=== PATIENT | male | born 1945 | race Caucasian/White ===

== ENCOUNTER 2019-12-05 14:53 | Outpatient (RCR) | payer MEDICARE, MEDICAID, OTHER, SELFPAY ==
[2019-12-05 15:48] LABS: Vitamin B12 450 pg/mL (232-1245)
== END 2019-12-13 23:59 | disposition home or self-care (01) ==
LOC: LAB 14:53
PROVIDERS: Family Provider Internal Medicine; PCP Internal Medicine; Visit Provider Internal Medicine
DX: E56.9 Vitamin deficiency, unspecified (principal); G47.00 Insomnia, unspecified
CPT/HCPCS: 82607

== ENCOUNTER 2019-12-10 01:22 | Observation (INO) | payer OTHER, MEDICARE, MEDICAID, SELFPAY ==
[2019-12-10] VITALS (20 sets, daily range): BP systolic 97–179; BP diastolic 56–130; PULSE 65–109; RESP 13–22; TEMP 36.7–36.9; O2SAT 89–97; BMI 31.0
--- NOTE | 2019-12-10 01:27 | ED_ITS ---
Entered by Candace Foley, acting as scribe for Haylee Franklin HPI - Chest Pain General: Chief Complaint: Chest Pain Stated Complaint: Hypertension Time Seen by Provider: 12/10/19 01:27 History of Present Illness: HPI narrative: 74 yo m came to the er by [facility] ems for chest pain and palp. Onset was 2 days ago. Pt states that the pain comes and goes. Pt states that when he gets this pressure in his chest he starts to get short of breath. Pt said that he has had a pressure tight pain for 3 days. MD complaint: chest pain, chest discomfort and other (shortness of breath) Onset (ago): day(s) (3 days ago) Timing of current episode: episodic Prior episodes: Yes Onset: during rest Pain location: substernal Severity: moderate Quality: other (pressure) Associated symptoms: Reports palpitations; Deny abdominal pain, diaphoresis, dyspnea, fever(s), nausea, syncope or vomiting Treatment prior to arrival: nitroglycerin and other (nitro paste) Review of Systems General: Reports: other (negative unless marked) Const: Denies: fever, chills, body aches, fatigue, malaise or diaphoresis Eyes: Denies: change in vision or blurry vision ENMT: Denies: throat pain, painful swallowing, hoarseness, ear pain, ear discharge, Change in hearing or nasal discharge Card: Reports: chest pain and palpitations; Denies: irregular heart rhythm, syncope, pre-syncope, shortness of breath on exertion or shortness of breath when lying down Resp: Denies: shortness of breath, productive cough, non-productive cough, wh eezing, coughing up blood or chest congestion GI: Denies: abdominal pain, nausea, vomiting, vomiting blood, coffee grounds in vomit, diarrhea, constipation, cramping, blood in stool or black tarry stool : Denies: flank pain, difficulty urinating, painful urination, urinary frequency, urinary urgency, decreased urine ouput, urinary incontinence or blood in urine Musc: Denies: neck pain, back pain, extremity pain, extremity swelling, joint pain, joint swelling, joint warmth or joint stiffness Skin/Breast: Denies: rash, skin tenderness or yellow skin Neuro: Denies: headache, numbness in extremities, weakness in extremities, changes in sensation, lack of coordination, difficulty walking, dizziness, vertigo or confusion Endo: Denies: excessive thirst, tired all the time, cold intolerance, excessive sweating, flushing or hot flashes Santana/Lymph: Denies: easy bruising, easy bleeding, petechiae or enlarged lymph nodes All/Imm: Denies: hives, throat swelling, tongue swelling, facial swelling or acute wheezing PFSH ED PFSH: Statuses (acute, chronic, etc) shown below reflect problem list status as previously entered and may not be historically accurate Medical History Chronic kidney disease, stage II (mild) (Acute) COPD (chronic obstructive pulmonary disease) (Acute) Coronary artery disease (Acute) CVA (cerebral vascular accident) (Acute) GI bleed (Acute) Hypertension (Acute) Hypothyroidism (Acute) Lower back pain (Acute) Pulmonary embolism (Acute) Spinal cord stimulator status (Acute) Systolic congestive heart failure (Acute) Surgical History H/O cardiac catheterization (Acute) H/O shoulder surgery (Acute) History of ankle surgery (Acute) History of right-sided carotid endarterectomy (Acute) Hx of cholecystectomy (Acute) Social History Smoking and tobacco status: former smoker Physical Exam Const: COMMON NORMALS: no apparent distress, oriented x3, no limitations, healthy appearing and well nourished EXAM LIMITATIONS: no altered mental status GENERAL APPEARANCE: cooperative, well kempt and well developed ORIENTATION/CONSCIOUSNESS: Yes awake HENMT: COMMON NORMALS: normocephalic, head/scalp atraumatic, hearing grossly normal bilaterally, external ears normal, EAC's normal, external nose normal and moist oral mucous membranes HEAD & SCALP: normal to inspection, normocephalic and atraumatic FACE & SINUS: normal facial exam and face symmetric NOSE: external nose normal and nares normal EXTERNAL EAR: Yes external ears normal EXTERNAL AUDITORY CANAL: EAC's normal MOUTH: oral and palatal mucosa normal and tongue normal Eye: COMMON NORMALS: PERRL, EOMs intact bilaterally, conjunctivae normal and no scleral icterus GENERAL EYE: normal appearance of both eyes and normal light reflex CONJUNCTIVA: Yes conjunctivae normal SCLERA: sclerae normal CORNEA: Yes corneas normal PUPIL: Yes PERRL DIRECT OPHTHALMOSCOPY: Yes normal light reflex Neck/C-Spine: COMMON NORMALS: full ROM, no lymphadenopathy, supple, no me ningeal signs and no JVD GENERAL: Yes normal visual inspection and Yes trachea midline CERVICAL SPINE: Yes cervical ROM normal Chest: COMMONS NORMALS: inspection of chest normal and palpation of chest normal Resp: COMMON NORMALS: normal respiratory effort, no retractions, no use of accessory muscles and clear to auscultation bilaterally EFFORT & INSPECTION: Yes able to speak in complete sentences AUSCULTATION: clear to auscultation bilaterally Cardio: COMMON NORMALS: no JVD, regular rate, regular rhythm, S1 normal heart sound, S2 normal heart sound, no gallops, no clicks, no murmurs and no rub JUGULAR VENOUS DISTENTION: no JVD RATE: regular rate RHYTHM: regular rhythm HEART SOUNDS: S1 normal and S2 normal GI: COMMON NORMALS: soft to palpation, non-tender, no hepatosplenomegaly and no masses INSPECTION: Yes normal to inspection PALPATION: Yes soft and Yes no hepatosplenomegaly : COMMON NORMALS: Yes no CVA tenderness BLADDER/KIDNEY EXAM: Yes no CVA tenderness Back/Pelvis: COMMON NORMALS: no CVA tenderness, thoracic and lumbar spine normal to inspection, no thoracic nor lumbar tenderness and thoraco-lumbar ROM normal Extremity: COMMON NORMALS: normal to inspection, full ROM, normal capillary refill, no joint enlargement, no clubbing, cyanosis or edema and no calf tenderness Neuro: COMMON NORMALS: oriented x3, CN's II-XII intact bilaterally, moves all extremities, no focal motor deficits and no sensory deficits noted MENINGEAL SIGNS: Yes no meningeal signs Psych: COMMON NORMALS: mental status grossly normal, thought process normal, cooperative, affect normal, speech normal and activity/motor behavior normal APPEARANCE: Yes well kempt SPEECH: Yes normal speech THOUGHT PROCESS: normal thought process Skin: COMMON NORMALS: no rashes or lesions noted, skin turgor normal, no jaundice, no petechiae and no mottling GENERAL SKIN EXAM: no rashes or lesions noted and turgor normal Course Vital Signs: Vital signs: Vital Signs Temperature 98.4 F 12/10/19 01:23 Pulse Rate 69 12/10/19 04:00 Respiratory Rate 15 12/10/19 04:00 Blood Pressure 143/90 12/10/19 04:00 Pulse Oximetry 93 12/10/19 04:00 MDM - Chest Pain MDM Narrative: Medical decision making narrative: Mr. Gillette comes in with chest pain concerning for acute coronary syndrome. His troponin is going up but his chest pain is resolved and his EKG does not reveal any type of ST elevation. The case is reviewed with Dr. Harris he agrees to admit the patient for further cardiac evaluation. Lab Data: Attestation: I reviewed the patient's lab results. Labs: Lab Results 12/10/19 12/10/19 12/10/19 Range/Units 01:36 01:38 01:38 WBC 6.8 (4.0-10.0) 10^3/ uL RBC 5.21 (4.1-5.3) 10^6/u L Hgb 13.1 (11.7-16.6) g/dL Hct 41.2 L (42.0-52.0) % MCV 79.1 L (80-94) fL MCH 25.1 L (28.0-34.0) pg MCHC 31.8 (30.0-36.0) g/dL RDW 14.3 (12.1-15.1) % Plt Count 318 (130-400) 10^3/c mm MPV 9.9 (7.4-10.4) fL Neut % (Auto) 60.0 % Lymph % (Auto) 28.7 % [place] % (Auto) 8.0 % Eos % (Auto) 2.4 % Baso % (Auto) 0.6 % Neut # (Auto) 4.1 (1.8-7.7) 10^3/u L Lymph # (Auto) 1.9 (0.8-4.8) 10^3/u L [place] # (Auto) 0.5 (0.2-0.9) 10^3/u L Eos # (Auto) 0.2 (0.0-0.8) 10^3/u L Baso # (Auto) 0.0 (0.0-0.1) 10^3/u L Nucleated RBC % (a uto) 0 % Nucleated RBCs # 0.0 /100WBC PT 15.00 H (10.5-13.3) SECO NDS INR 1.15 (0.8-1.2) D-Dimer 0.41 (0-0.59) ug/mIFE U Sodium (136-145) mmol/L Potassium (3.5-5.1) mmol/L Chloride (98-107) mmol/L Carbon Dioxide (22-29) mmol/L Anion Gap (5-19) BUN (8-23) mg/dL Creatinine (0.7-1.2) mg/dL Glucose (74-106) mg/dL Calcium (8.5-10.5) mg/dL Magnesium (1.7-2.3) mg/dL Total Bilirubin (0.15-1.2) mg/dL AST (0-40) U/L ALT (0-41) U/L Alkaline Phosphata se (40-130) IU/L Troponin T Baselin e (0-15) ng/mL Troponin T 120 Min triny (0-15) ng/mL NT-Pro-B Natriuret Pep (0-125) pg/mL Total Protein (6.6-8.7) g/dL Albumin (3.5-5.2) g/dL Globulin (1.3-4.6) g/dL Lipase (13-60) U/L 12/10/19 12/10/19 12/10/19 Range/Units 01:38 01:38 03:38 WBC (4.0-10.0) 10^3/ uL RBC (4.1-5.3) 10^6/u L Hgb (11.7-16.6) g/dL Hct (42.0-52.0) % MCV (80-94) fL MCH (28.0-34.0) pg MCHC (30.0-36.0) g/dL RDW (12.1-15.1) % Plt Count (130-400) 10^3/c mm MPV (7.4-10.4) fL Neut % (Auto) % Lymph % (Auto) % [place] % (Auto) % Eos % (Auto) % Baso % (Auto) % Neut # (Auto) (1.8-7.7) 10^3/u L Lymph # (Auto) (0.8-4.8) 10^3/u L [place] # (Auto) (0.2-0.9) 10^3/u L Eos # (Auto) (0.0-0.8) 10^3/u L Baso # (Auto) (0.0-0.1) 10^3/u L Nucleated RBC % (a uto) % Nucleated RBCs # /100WBC PT (10.5-13.3) SECO NDS INR (0.8-1.2) D-Dimer (0-0.59) ug/mIFE U Sodium 133 L (136-145) mmol/L Potassium 4.3 (3.5-5.1) mmol/L Chloride 97 L (98-107) mmol/L Carbon Dioxide 22 (22-29) mmol/L Anion Gap 18.3 (5-19) BUN 16 (8-23) mg/dL Creatinine 1.1 (0.7-1.2) mg/dL Glucose 222 H (74-106) mg/dL Calcium 9.4 (8.5-10.5) mg/dL Magnesium 1.9 (1.7-2.3) mg/dL Total Bilirubin 0.7 (0.15-1.2) mg/dL AST 36 (0-40) U/L ALT 49 H (0-41) U/L Alkaline Phosphata se 91 (40-130) IU/L Troponin T Baselin e 75 H (0-15) ng/mL Troponin T 120 Min triny 84.51 H (0-15) ng/mL NT-Pro-B Natriuret Pep 625 H (0-125) pg/mL Total Protein 7.9 (6.6-8.7) g/dL Albumin 4.1 (3.5-5.2) g/dL Globulin 3.8 (1.3-4.6) g/dL Lipase 26 (13-60) U/L Imaging Data^: CXR: My impression: No acute cardiopulmonary findings EKG Data^: EKG 1: Attestation: I personally reviewed and interpreted this EKG as follows: EKG interpretation date: 12/10/19 EKG interpretation time: 01:42 Interpretation: Normal sinus rhythm at 94 beats a minute, normal MA interval, normal QRS, normal axis, LVH, T waves inverted 1, aVL and V6.. EKG 2: EKG interpretation date: 12/10/19 EKG interpretation time: 03:25 Interpretation: Normal sinus rhythm at 70 beats a minute, nonspecific ST-T wave changes, normal MA interval, normal QRS, normal QTC, T waves inverted 1, aVL and V6 similar to previous Discharge Plan Discharge Patient Disposition: Placed in Observation Clinical Impression: Chest pain Condition: Stable Referrals: Jorge Beasley [Primary Care Provider] - Coding Level of Care Code ED Anchorman for Chg Fwd The documentation recorded by the Og dominique Stephanie Lyn, accurately reflects the service I personally performed and the decisions made by Rigoberto delarosa Eli N Dec 10, 2019 01:22
--- NOTE | 2019-12-10 01:32 | XR_ITS ---
WS: [id number] Portable AP upright chest, 12/10/2019 Clinical Data: cough Comparison: Portable chest, 10/29/2018. Findings: No nodules, masses or effusions are seen. The heart is normal. The pulmonary vascularity is not increased. No pneumonia or pneumothorax is seen. The epidural simulator wires are seen overlying the thoracic epidural space. The aortic arch and descending aorta show tortuosity. There are clips i n the right supraclavicular fossa from surgery XR/XR chest 1V portable [id number] Impression: Atherosclerosis.
--- NOTE | 2019-12-10 01:32 | ECG_ITS ---
Measurements Intervals [place] Rate: 94 P: 33 FL: 168 QRS: 11 QRSD: 122 T: 82 QT: 361 QTc: 454 SINUS RHYTHM INFERIOR MYOCARDIAL INFARCTION , PROBABLY OLD [40+ ms Q WAVE AND/OR ST/T AB ABNORMALITY IN II/aVF] Compared to ECG 10/29/2018 19:56:11 Myocardial infarct finding now present Electronically Signed On 12-10-2019 16:18:06 [employer]OX [employer] by Valente Malin M.D. [id number] f
[2019-12-10 01:46] LABS: Basophils % 0.6 %; Eosinophils # 0.2 10^3/uL (0.0-0.8); Eosinophils % 2.4 %; Hematocrit 41.2 % (42.0-52.0); Hemoglobin 13.1 g/dL (11.7-16.6); Lymphocytes # 1.9 10^3/uL (0.8-4.8); Lymphocytes % 28.7 %; Mean Corpuscular HGB Conc 31.8 g/dL (30.0-36.0); Mean Corpuscular Hemoglobin 25.1 pg (28.0-34.0); Mean Corpuscular Volume 79.1 fL (80-94); Mean Platelet Volume 9.9 fL (7.4-10.4); Monocytes # 0.5 10^3/uL (0.2-0.9); Neutrophils # 4.1 10^3/uL (1.8-7.7); Nucleated Red Blood Cells % 0 %; Platelet Count 318 10^3/cmm (130-400); Red Blood Count 5.21 10^6/uL (4.1-5.3); Red Cell Distribution Width 14.3 % (12.1-15.1); White Blood Count 6.8 10^3/uL (4.0-10.0)
[2019-12-10 01:54] LABS: INR 1.15 (0.8-1.2)
[2019-12-10 02:06] LABS: Troponin(5th) Baseline 75 ng/mL (0-15)
[2019-12-10] MEDS: morphine 4 mg/mL SDV 1 mL IVP ×2 (02:13→12:21)
[2019-12-10 02:15] LABS: Alanine Aminotransferase 49 U/L (0-41); Albumin Level 4.1 g/dL (3.5-5.2); Alkaline Phosphatase 91 IU/L (40-130); Anion Gap 18.3 (5-19); Aspartate Amino Transferase 36 U/L (0-40); Blood Urea Nitrogen 16 mg/dL (8-23); Calcium 9.4 mg/dL (8.5-10.5); Carbon Dioxide 22 mmol/L (22-29); Chloride 97 mmol/L (98-107); Creatinine Clr Calc Pharmacy 67.1013; Globulin 3.8 g/dL (1.3-4.6); Glucose 222 mg/dL (74-106); Lipase 26 U/L (13-60); Magnesium 1.9 mg/dL (1.7-2.3); NT Pro B Type Natriuretic Pept 625 pg/mL (0-125); Potassium 4.3 mmol/L (3.5-5.1); Sodium 133 mmol/L (136-145); Total Bilirubin 0.7 mg/dL (0.15-1.2); Total Protein 7.9 g/dL (6.6-8.7)
--- NOTE | 2019-12-10 03:32 | ECG_ITS ---
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 [id number] f
[2019-12-10 03:42] LABS: D Dimer 0.41 ug/mIFEU (0-0.59)
[2019-12-10 04:03] LABS: Troponin 5 2HR 84.51 ng/mL (0-15); Troponin 5 2HR Delta 9.51 ABS# (0-10)
--- NOTE | 2019-12-10 04:52 | P.HP_ITS ---
Providers/Chief Complaint Primary Care Provider: Jorge Beasley Chief Complaint: Hypertension History of Present Illness Agus Gillette is a 74 year old male who carries diagnosis of congestive heart failure 33%, 100% occlusion of RCA(being managed medically), COPD uses 3 L of oxygen at night, no AICD or pacemaker came in with chief complaint of chest discomfort. Patient is stating that his blood pressure was very high at the retirement, systolic was 170 and diastolic was ranging around 100 mmHg, he was experiencing mild pressure-like sensation substernally all day, which was happening at rest and after dinner his symptoms were getting worse so he decided to come to ER for evaluation. Patient is stating that chest discomfort is resolved after control of blood pressure, current blood pressure 127/81, he is afebrile currently doing well on 2 L nasal cannula. He does get short of breath on exertion but no active exacerbation, no recent flulike symptoms, diarrhea, nausea, vomiting, orthopnea or PND. He has gained 10 pounds but he has not noticed any edema in his legs. Diagnostics in ER revealed first troponin 75 and second 1 is 84 with T wave inversions in lead I and aVL He is chest pain-free Review of Systems Const: Reports: change in appetite, change in weight, fatigue and malaise; Denies: fever, chills or body aches Eyes: Denies: change in vision ENMT: Denies: throat pain Card: Denies: chest pain Resp: Denies: shortness of breath GI: Denies: abdominal pain, nausea or vomiting : Denies: flank pain Musc: Denies: neck pain Neuro: Denies: headache Psych: Reports: anxiety Endo: Denies: excessive urination Santana/Lymph: Denies: easy bruising All/Imm: Denies: hives Medications/Allergies Allergies Allergy/AdvReac Type Severity Reaction Status Date / Time No Known Allergies Allergy Verified 12/10/19 01:34 PFSH Acute PFSH: Statuses (acute, chronic, etc) shown below reflect problem list status as previously entered and may not be historically accurate Medical History Chronic kidney disease, stage II (mild) (Acute) COPD (chronic obstructive pulmonary disease) (Acute) Coronary artery disease (Acute) CVA (cerebral vascular accident) (Acute) GI bleed (Acute) Hypertension (Acute) Hypothyroidism (Acute) Lower back pain (Acute) Pulmonary embolism (Acute) Spinal cord stimulator status (Acute) Systolic congestive heart failure (Acute) Surgical History H/O cardiac catheterization (Acute) H/O shoulder surgery (Acute) History of ankle surgery (Acute) History of right-sided carotid endarterectomy (Acute) Hx of cholecystectomy (Acute) Social History Smoking and tobacco status: former smoker Supplemental [facility] Information: Most recent cardiac cath from 08/22/2018 showed mild diffuse irregularities of the left main, LAD and circumflex though no significant lesions. Heavy calcification in the proximal vessels. Right coronary artery is occluded proximally with collaterals from the left system. LVEF of 38%. Akinesis of the inferior base and mid inferior wall. Proximal RCA severe 100% stenosis, chronic total occlusion. Recommendation to continue with medical management Vitals/I&O/Wt Last Vital Signs Temp 98.4 F 12/10/19 01:23 Pulse 69 12/10/19 04:00 Resp 15 12/10/19 04:00 BP 143/90 12/10/19 04:00 Pulse Ox 93 12/10/19 04:00 Weight last 48 hrs Weight 95.254 kg Physical Exam Narrative: EXAM NARRATIVE: Morbidly obese male lying comfortable in his bed in left lateral position Patient was intubated nasal cannula saturating well Clinically does not look fluid overloaded, S1, S2, Abdomen soft, distended, with obesity, bowel sounds present Lungs are clear to auscultation bilaterally without adventitious sound Neurologically nonfocal exam Skin does not show any sign of skin edema, gangrene or ulcer Appropriate mood and affect EOMI, PERRLA Data : 12/10/19 01:38 12/10/19 01:38 A&P Assessment and plan (1) Chest pain: Status: Acute Qualifiers: Chest pain type: precordial pain Qualified Code(s): R07.2 - Precordial pain Code(s): R07.9 - Chest pain, unspecified (2) Hypertensive urgency: Status: Acute Code(s): I16.0 - Hypertensive urgency Additional A&P Information Unstable angina with underlying established coronary artery disease 100% occlusion of RCA which has been managed medically as per cardiology previous note Currently patient is chest pain-free, blood pressure is stable, heart rate is still high which might be increasing oxygen demand with hypertensive urgency in the beginning If he starts having recurrent chest pain or persistent symptoms we will consult cardiology Delta troponin 9.5, EKG changes or T wave inversions in lead I and aVL Systolic congestive heart failure EF 33% without AICD or pacemaker No active exacerbation of heart failure Oxygen dependent COPD, no active exacerbation Hypertensive urgency: He just received morphine and his symptoms improved, he has been normotensive in the hospital History of subsegmental PE: Continue Eliquis Hypothyroidism: Continue home dose of levothyroxine 125 mcg Patient is full code No DVT prophylaxis needed because of Eliquis Anxiety/depression: Continue Effexor 150 mg, BuSpar 10 mg Attestations Medical Necessity Statement*: Anticipating his stay to be less than 48 hours he needs monitoring for persistent chest pain Time Spent in Patient Care: 40 Coding Level of Care Code Acute Belt Operator for Charity Jay Diagnoses Chest pain R07.2 Chest pain type: precordial pain Hypertensive urgency I16.0
--- NOTE | 2019-12-10 06:05 | PC.NURSE ---
Patient arrived to the floor from the ED. Patient is alert and oriented and ambulates with stand-by assist. Patient states that he is from [facility]. Patient states he is not having any chest pain at this time, but originally came to the hospital for chest pressure. Patient has been oriented to his room and has call light within reach.
[2019-12-10 08:23] LABS: Troponin 5 6HR 90.47 ng/L (0-15)
[2019-12-10 08:46] LABS: Troponin 5 6HR Delta 15.47 ng/L (0-12)
--- NOTE | 2019-12-10 08:53 | USCV_ITS ---
Agus Gillette Age: 74 Gender: M : 1945 Exam Date: 12/10/2019 12:19 Ordering Phys: Terry Waterman MD Technologist: Andres Castillo [place] [facility] [place]: ECHO COMPLETE BP: 175 / 130 HR: 110 Rhythm: Sinus Technical Quality: MEASUREMENTS (Male / Female) Normal Values 2D ECHO LVOT Diameter 2.0 cm LV Ejection Fraction MOD 2C 52.0 % LV Ejection Fraction 2C AL 51.5 % LA Diameter 4.8 cm LA Width 4.2 cm LA Height 4.3 cm RA Width 3.4 cm RA Height 4.0 cm M-MODE LV Diastolic Diameter MM 6.6 cm 4.2 - 5.9 / 3.9 - 5.3 cm LV Systolic Diameter MM 4.3 cm LV Ejection Fraction MM Teich 62.4 % IVS Diastolic Thickness MM 0.6 cm 0.6 - 1.0 / 0.6 - 0.9 cm IVS Systolic Thickness MM 1.6 cm LVPW Diastolic Thickness MM 1.3 cm 0.6 - 1.0 / 0.6 - 0.9 cm LVPW Systolic Thickness MM 1.6 cm RV Diastolic Diameter MM 2.3 cm Aortic Annulus Diameter 3.3 cm LA Ao Ratio MM 1.4 MV E Point Septal Separation 1.1 cm DOPPLER AV Peak Velocity 144.0 cm/s LVOT Peak Velocity 102.0 cm/s AV Area Cont Eq vti 2.1 cm squared AV Area Cont Eq pk 2.3 cm squared MV Area PHT 5.0 cm squared Mitral E to A Ratio 2.2 MV E' Velocity 6.0 cm/s Mitral E to MV E' Ratio 21.4 Mitral E to LV E' Lateral Ratio 14.6 Mitral E to LV E' Septal Ratio 40.0 TR Peak Velocity 129.0 cm/s TR Peak Gradient 6.6 mmHg TV Peak E Velocity 156.0 cm/s Right Atrial Pressure 3.0 mmHg Pulmonary Artery Systolic Pressu 9.7 mmHg PV Peak Velocity 109.0 cm/s FINDINGS Left Ventricle Normal left ventricular cavity size. Normal left ventricular systolic function. Left ventricular ejection fraction is estimated at 55 %. Grade II/IV diastolic dysfunction, moderately elevated filling pressures. Right Ventricle The right ventricle is normal in size and function. Right Atrium The right atrium is normal in size. Left Atrium Moderately increased left atrial size. Mitral Valve Moderately thickened mitral valve. No mitral valve stenosis. Moderate mitral valve regurgitation. Aortic Valve Moderate aortic valve calcification. No aortic valve stenosis. Mild aortic valve regurgitation. Tricuspid Valve Structurally normal tricuspid valve without significant stenosis or regurgitation. Pulmonary artery systolic pressure is normal. Pulmonic Valve Structurally normal pulmonic valve without significant stenosis. There is no pulmonic regurgitation. Pericardium Normal pericardium without effusion. Aorta Normal ascending aorta dimension. CONCLUSIONS 1-Normal left ventricular cavity size. Normal left ventricular systolic function. Left ventricular ejection fraction is estimated at 55 %. Grade II/IV diastolic dysfunction, moderately elevated filling pressures. 2-Moderately increased left atrial size. 3-Moderately thickened mitral valve. No mitral valve stenosis. Moderate mitral valve regurgitation. 4-Moderate aortic valve calcification. No aortic valve stenosis. Mild aortic valve regurgitation. 5-There is no pericardial effusion. 6-Pulmonary artery systolic pressure is within normal limits. 7-When compared to the prior echocardiogram dated 09/21/2018 left ventricular ejection fraction has increased from severely depressed 33% to normal 55% now. Ace Rene MD (Electronically Signed) Final Date: 10 December 2019 20:48 S
[2019-12-10] MEDS: ondansetron 2 mg/ML SDV 2 mL 4 MG IVP (08:56)
--- NOTE | 2019-12-10 12:00 | PM.CONSULT ---
Providers/Reason For Consult Consulting Physican/Specialty*: Cardiology Reason for Consult*: Abnormal cardiac markers, chest pressure, hypertensive urgency Attending Physician: Terry Waterman MD Primary Care Provider: Jorge Beasley History of Present Illness History of Present Illness Agus Gillette is a 74 year old male past medical history significant for old myocardial infarction with chronically occluded and highly calcified mid RCA, history of nonischemic cardiomyopathy, history of congestive heart failure, history of COPD, uncontrolled hypertension who presented with chest pressure and hypertensive urgency to the ER. After initial treatment and control of blood pressure chest pressure was relieved. Troponin T stayed mildly abnormal but highest in the range of 80s with some delta bump. Currently he denies any chest pain. His blood pressure again is staying in 175 systolic range. Patient has told me that he has not slept in a few days and would like to sleep. He denies PND orthopnea he denies out of usual shortness of breath. He is laying flat on the bed without any problem. Twelve-lead EKG showed old inferior wall myocardial infarction with lateral lead T wave inversion. Review of Systems General: Reports: other (negative unless marked) Const: Reports: change in appetite, change in weight, fatigue and malaise; Denies: fever, chills, body aches or diaphoresis Eyes: Denies: change in vision or blurry vision ENMT: Denies: throat pain, painful swallowing, hoarseness, ear pain, ear discharge, change in hearing or nasal discharge Card: Reports: palpitations; Denies: chest pain, irregular heart rhythm, syncope, pre-syncope, shortness of breath on exertion or shortness of breath when lying down Resp: Denies: shortness of breath, productive cough, non-productive cough, wheezing, coughing up blood or chest congestion GI: Denies: abdominal pain, nausea, vomiting, vomiting blood, coffee grounds in vomit, diarrhea, constipation, cramping, blood in stool or black tarry stool : Denies: flank pain, difficulty urinating, painful urination, urinary frequency, urinary urgency, decreased urine ouput, urinary incontinence or blood in urine Musc: Denies: neck pain, back pain, extremity pain, extremity swelling, joint pain, joint swelling, joint warmth or joint stiffness Skin/Breast: Denies: rash, skin tenderness or yellow skin Neuro: Denies: headache, numbness in extremities, weakness in extremities, changes in sensation, lack of coordination, difficulty walking, dizziness, vertigo or confusion Psych: Reports: anxiety Endo: Denies: excessive urination, excessive thirst, tired all the time, cold intolerance, excessive sweating, flushing or hot flashes Santana/Lymph: Denies: easy bruising, easy bleeding, petechiae or enlarged lymph nodes All/Imm: Denies: hives, throat swelling, tongue swelling, facial swelling or acute wheezing Meds/Allergies Home Medications and Allergies Allergies Allergy/AdvReac Type Severity Reaction Status Date / Time No Known Allergies Allergy Verified 12/10/19 01:34 Current Medications Current Medications Generic Name Dose Route Start Last Admin Trade Name Freq PRN Reason Stop Dose Admin Ondansetron HCl 4 mg 12/10/19 08:21 12/10/19 08:56 Zofran IVP 4 mg Q6H PRN Administration NAUSEA AND VOMITING PFSH Acute PFSH: Statuses (acute, chronic, etc) shown below reflect problem list status as previously entered and may not be historically accurate Medical History (Updated 12/10/19 @ 12:27 by Ace Rene MD) Chronic kidney disease, stage II (mild) (Acute) COPD (chronic obstructive pulmonary disease) (Acute) Coronary artery disease (Acute) CVA (cerebral vascular accident) (Acute) GI bleed (Acute) Hypertension (Acute) Hypothyroidism (Acute) Lower back pain (Acute) Pulmonary embolism (Acute) Spinal cord stimulator status (Acute) Systolic congestive heart failure (Acute) Surgical History H/O cardiac catheterization (Acute) H/O shoulder surgery (Acute) History of ankle surgery (Acute) History of right-sided carotid endarterectomy (Acute) Hx of cholecystectomy (Acute) Social History Smoking and tobacco status: former smoker Supplemental PFSH Information: Most recent cardiac cath from 08/22/2018 showed mild diffuse irregularities of the left main, LAD and circumflex though no significant lesions. Heavy calcification in the proximal vessels. Right coronary artery is occluded proximally with collaterals from the left system. LVEF of 38%. Akinesis of the inferior base and mid inferior wall. Proximal RCA severe 100% stenosis, chronic total occlusion. Recommendation to continue with medical management Vitals/I&O/Wt Last Vital Signs Temp 98.0 F 12/10/19 07:36 Pulse 89 12/10/19 07:36 Resp 16 12/10/19 07:36 BP 175/130 12/10/19 07:36 Pulse Ox 95 12/10/19 07:36 12/09/19 12/10/19 12/10/19 22:59 06:59 14:59 Intake Total 240 / 240 Balance 240 / 240 Weight last 48 hrs Weight 210 lb Physical Exam Narrative: EXAM NARRATIVE: GENERAL: Patient is alert, awake and oriented x3. NECK: No jugular vein distension. HEENT: No cyanosis. No icterus. No pallor. HEART: Regular S1 and S2. No murmur, rub or gallop. LUNGS: Clear to auscultate bilaterally. ABDOMEN: Soft, nontender and nondistended. Positive bowel sounds. No guarding, rebound or tenderness. CENTRAL NERVOUS SYSTEM: Grossly nonfocal. EXTREMITIES: Lower extremities without edema bilaterally. Data Labs: Other Labs: SINUS RHYTHM PROBABLE INFERIOR MYOCARDIAL INFARCTION , PROBABLY OLD [35 ms Q WAVE IN II/aVF] Compared to ECG 10/29/2018 19:56:11 Myocardial infarct finding now present A&P Assessment and plan (1) Pulmonary embolism: Continue anticoagulation Status: Acute Code(s): I26.99 - Other pulmonary embolism without acute cor pulmonale (2) Hypertensive urgency: I will increase lisinopril to 40 mg once a day. If needed we can switch him from metoprolol to Coreg for better blood pressure control. Status: Acute Code(s): I16.0 - Hypertensive urgency (3) Chest pain: Patient has chest pressure which could be expected due to increased afterload secondary to hypertension in the presence of chronically occluded RCA with collaterals. Will add isosorbide mononitrate and maximize optimal medical regimen. Status: Acute Qualifiers: Chest pain type: precordial pain Qualified Code(s): R07.2 - Precordial pain Code(s): R07.9 - Chest pain, unspecified (4) Insomnia disorder: Patient has not slept well in 2 to 3 days which could be the reason of his uncontrolled hypertension. I will try Restoril today. 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
[2019-12-10] MEDS: metoprolol succinate ER (24 HR) 25 mg Tablet 12.5 MG PO (12:13)
[2019-12-10] MEDS: levothyroxine 125 mcg Tablet PO (12:14)
[2019-12-10] MEDS: BuSPIRONE 10 mg Tablet PO (12:14)
[2019-12-10] MEDS: aspirin 81 mg EC Tablet PO (12:14)
[2019-12-10] MEDS: nitroglycerin 1 gm/inch oint Pkt 1 INCH TOPICAL (12:15)
[2019-12-10] MEDS: apixaban 5 mg Tablet PO ×2 (12:15→18:47)
[2019-12-10] MEDS: sodium chloride 0.9% 1,000 ML 100 ML IV ×2 (12:16→19:24)
[2019-12-10] MEDS: isosorbide mononitrate ER 30 mg Tablet PO (13:46)
[2019-12-10] MEDS: lisinopril 20 mg Tablet 40 MG PO (13:47)
--- NOTE | 2019-12-10 16:11 | P.PN_ITS ---
Subjective Subjective: Interval history: This morning patient was sitting up in bed, having retching, feeling very nauseous, states he continues to have a pressure- like sensation over his chest, no lightheadedness, no dizziness, states has been more short of breath at rest and with exertion recently, has not been able to sleep for the last few days, He continues to have some chest pain this morning, his EKG shows T wave inversions in the lateral leads, and is has a positive delta troponin, and has had having some hypertensive urgency Vitals/I&O/Wt Last Vital Signs Temp 98.0 F 12/10/19 12:00 Pulse 105 H 12/10/19 12:47 Resp 18 12/10/19 12:47 BP 179/99 12/10/19 12:00 Pulse Ox 90 12/10/19 12:47 12/10/19 12/10/19 12/10/19 06:59 14:59 22:59 Intake Total 360 / 360 Balance 360 / 360 Weight last 48 hrs Weight 95.254 kg Physical Exam Const: COMMON NORMALS: no apparent distress and oriented x3 HENMT: COMMON NORMALS: normocephalic HEAD & SCALP: normocephalic Neck/C-Spine: COMMON NORMALS: no JVD Resp: COMMON NORMALS: normal respiratory effort, no retractions, no use of accessory muscles and clear to auscultation bilaterally AUSCULTATION: clear to auscultation bilaterally Cardio: COMMON NORMALS: no JVD, regular rate, regular rhythm, S1 normal heart sound and S2 normal heart sound RATE: regular rate RHYTHM: regular rhythm HEART SOUNDS: S1 normal and S2 normal GI: COMMON NORMALS: normal to inspection, nondistended, normoactive bowel sounds, soft to palpation, non-tender, no hepatosplenomegaly, no masses and no bruits PALPATION: Yes soft and Yes no hepatosplenomegaly Extremity: COMMON NORMALS: normal capillary refill, no clubbing, cyanosis or edema, no calf tenderness and no pedal edema Neuro: COMMON NORMALS: oriented x3 Psych: COMMON NORMALS: mental status grossly normal Data : 12/10/19 01:38 12/10/19 01:38 A&P Assessment and plan (1) Chest pain: -Patient has a history of a cath in 09/01/2018 which showed diffuse irregularity of the left main, LAD and left circumflex had no significant lesions, he had heavy calcification of the proximal vessels, proximal RCA had severe 100% stenosis, his left ventricular ejection fraction was 38%, with akinesia of the inferior base and the mid inferior wall -Had T wave inversions in 1 aVL V5 V6 -Positive delta troponin of 15.47 PLAN: -Continue aspirin, statin -Nitropaste -Telemetry monitoring -Cardiology has been consulted -Cardiac echocardiogram has been ordered Status: Acute Qualifiers: Chest pain type: precordial pain Qualified Code(s): R07.2 - Precordial pain Code(s): R07.9 - Chest pain, unspecified (2) Hypertensive urgency: -Continue home medications lisinopril and metoprolol -PRN labetalol Status: Acute Code(s): I16.0 - Hypertensive urgency (3) Pulmonary embolism: -Continue home Eliquis Status: Acute Code(s): I26.99 - Other pulmonary embolism without acute cor pulmonale (4) Insomnia disorder: Status: Acute Code(s): G47.00 - Insomnia, unspecified (5) Hypothyroidism: -Continue home levothyroxine Status: Acute Code(s): E03.9 - Hypothyroidism, unspecified (6) Chronic kidney disease, stage II (mild): Status: Acute Code(s): N18.2 - Chronic kidney disease, stage 2 (mild) (7) CVA (cerebral vascular accident): Status: Acute Code(s): I63.9 - Cerebral infarction, unspecified (8) Systolic congestive heart failure: -No active CHF exacerbation, no signs of fluid overload -BNP is 625 -Continue lisinopril, metoprolol -Patient is not Lasix according to him due to hypotensive episodes Status: Acute Code(s): I50.20 - Unspecified systolic (congestive) heart failure (9) Anxiety and depression: Continue Effexor and BuSpar Status: Acute Code(s): F41.9 - Anxiety disorder, unspecified; F32.9 - Major depressive disorder, single episode, unspecified Additional A&P Information Patient is full code No DVT prophylaxis needed because of Eliquis Attestations Medical Necessity Statement*: Patient requires continued hospitalization due to chest pain, hypertensive urgency Coding Level of Care 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
--- NOTE | 2019-12-10 19:00 | PC.NURSE ---
Dr. Waterman here to see patient. Bolus of 500cc's given out of original IV bag that was hanging as ordered by previous shift. Will monitor.
[2019-12-10] MEDS: atorvastatin 40 mg Tablet PO (21:07)
[2019-12-10] MEDS: temazepam 15 mg Capsule PO (21:13)
--- NOTE | 2019-12-10 21:25 | PC.NURSE ---
Dr. Harris notified of patient's BP of 108/56. Patient, really don't want to take that pasty stuff. Physician in agreement to hold HS dose. Will monitor.
--- NOTE | 2019-12-10 22:25 | PC.NURSE ---
Updated Dr. Harris on patient's BP. Ordered to hold next dose of ntg paste/ointment. Will monitor.
[2019-12-11 03:11] VITALS: BP 99/47; PULSE 63; RESP 22; TEMP 36.8; O2SAT 89
[2019-12-11] MEDS: sodium chloride 0.9% 1,000 ML 100 ML IV (05:05)
[2019-12-11 05:35] LABS: Basophils # 0.1 10^3/uL (0.0-0.1); Basophils % 0.5 %; Eosinophils # 0.2 10^3/uL (0.0-0.8); Eosinophils % 1.7 %; Hematocrit 39.9 % (42.0-52.0); Hemoglobin 12.2 g/dL (11.7-16.6); Lymphocytes # 1.9 10^3/uL (0.8-4.8); Lymphocytes % 20.6 %; Mean Corpuscular HGB Conc 30.6 g/dL (30.0-36.0); Mean Corpuscular Hemoglobin 25.8 pg (28.0-34.0); Mean Corpuscular Volume 84.5 fL (80-94); Mean Platelet Volume 9.9 fL (7.4-10.4); Monocytes # 0.8 10^3/uL (0.2-0.9); Monocytes % 8.9 %; Neutrophils # 6.2 10^3/uL (1.8-7.7); Nucleated Red Blood Cells % 0 %; Platelet Count 288 10^3/cmm (130-400); Red Blood Count 4.72 10^6/uL (4.1-5.3); Red Cell Distribution Width 14.6 % (12.1-15.1); White Blood Count 9.2 10^3/uL (4.0-10.0)
[2019-12-11 05:51] LABS: Anion Gap 12.5 (5-19); Blood Urea Nitrogen 19 mg/dL (8-23); Calcium 8.4 mg/dL (8.5-10.5); Carbon Dioxide 26 mmol/L (22-29); Chloride 104 mmol/L (98-107); Creatinine Clr Calc Pharmacy 67.1013; Glucose 157 mg/dL (74-106); Osmolality Calculated 286 mOsm/kg (285-295); Potassium 4.5 mmol/L (3.5-5.1); Sodium 138 mmol/L (136-145)
[2019-12-11] MEDS: acetaminophen 325 mg Tablet 650 MG PO ×2 (05:52→12:41)
[2019-12-11 07:58] VITALS: BP 127/67; PULSE 77; RESP 18; TEMP 36.7; O2SAT 94
[2019-12-11] MEDS: aspirin 81 mg EC Tablet PO (08:23)
[2019-12-11] MEDS: levothyroxine 125 mcg Tablet PO (08:24)
[2019-12-11] MEDS: isosorbide mononitrate ER 30 mg Tablet PO (08:24)
[2019-12-11] MEDS: apixaban 5 mg Tablet PO (08:24)
[2019-12-11] MEDS: lisinopril 20 mg Tablet 40 MG PO (08:24)
[2019-12-11] MEDS: BuSPIRONE 10 mg Tablet PO (08:24)
[2019-12-11] MEDS: amlodipine 10 mg Tablet PO (08:24)
[2019-12-11] MEDS: metoprolol succinate ER (24 HR) 25 mg Tablet 12.5 MG PO (08:25)
--- NOTE | 2019-12-11 11:01 | PC.CHAP ---
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 tree cutter visit [] Patient/Family/Request visit [] Outpatient visit [] Follow-up visit [] Physician referral [] Code/Alert [x] Routine visit [] Staff referral [] Actively dying [] Patient sleeping [] Family support [] [] Out of room [] Palliative care [] [] Receiving care in room [] Pre-surgical visit [] Trauma [] Long length of stay [] ICU visit [] Other: Relational/Emotional Strength [] Patient feels connected with others/family/visitors/staff [] Distress [] Loneliness/isolation [] Abandonment Spirituality of Patient [] Person of Ameena [] Attends Lutheran of their Ameena [x] Believes in Prayer [] Reads Bible or Confucianist materials [] There are Spiritual issues to be addressed Flame Cutter Interventions [x] Prayer [] Active listening [] Non-anxious presence [] Spiritual/emotional support [] Crisis/trauma care [] Spiritual counseling [] Bereavement support [] Provided bereavement packet [] Provided Bible/devotional materials [] Provided toy/stuffed animal, coloring book to patient or family member [x] Completed spiritual assessment [] Provided Communion [] Anointing/[place] [] Salvation [] Other: Impact on Illness or Injury [x] Angry [] Fearful [] Anxious [] Often cries [] Exhaustion [] Unable to work [] Unable to attend shinto [] Unable to walk/stand [] Unable to read [] Unable to drive [] Unable to eat/drink [x] Unable to sleep [] Unable to be with family [x] Other: Patient can't get comfortable with room, nor bed, nor pillow. Summary Nurse trying hard to fulfill Patients requests, cheese, crackers, multiple pillows, floor fan. Patient has desire to return to [facility] where he feels we can sleep without interruption. Time spent with patient 5 min
--- NOTE | 2019-12-11 11:41 | PM.PN ---
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
--- NOTE | 2019-12-11 13:28 | PM.DCS ---
Discharge Providers Date of Admission: 12/10/19 05:01 Date of Discharge: 12/11/19 Attending Provider at Admission: Ace Harris MD Attending Provider at Discharge: Enma Hart MD Primary Care Provider: Jorge Beasley Diagnoses at Discharge Discharge Diagnosis (1) Chest pain: Status: Acute Qualifiers: Chest pain type: precordial pain Qualified Code(s): R07.2 - Precordial pain (2) Hypertensive urgency: Status: Acute (3) Pulmonary embolism: Status: Acute (4) Insomnia disorder: Status: Acute (5) Hypothyroidism: Status: Acute (6) Chronic kidney disease, stage II (mild): Status: Acute (7) CVA (cerebral vascular accident): Status: Acute (8) Systolic congestive heart failure: Status: Acute (9) Anxiety and depression: Status: Acute Reason for Visit Reason for Visit: Reason For Visit: Hypertension Hospital Course Discharge Summary: Agus Gillette is a 74 year old male who carries diagnosis of congestive heart failure 33%, 100% occlusion of RCA(being managed medically), COPD uses 3 L of oxygen at night, no AICD or pacemaker came in with chief complaint of chest discomfort. Patient is stating that his blood pressure was very [facility] at the [facility], systolic was 170 and diastolic was ranging around 100 mmHg, he was experiencing mild pressure-like sensation substernally all day, which was happening at rest and after dinner his symptoms were getting worse so he decided to come to ER for evaluation. Patient is stating that chest discomfort is resolved after control of blood pressure, current blood pressure 127/81, he is afebrile currently doing well on 2 L nasal cannula. He does get short of breath on exertion but no active exacerbation, no recent flulike symptoms, diarrhea, nausea, vomiting, orthopnea or PND. Twelve-lead EKG showed old inferior wall myocardial infarction with lateral lead T wave inversion. He was seen by Dr. Rene from cardiology. It was felt Patient has chest pressure which could be expected due to increased afterload secondary to hypertension in the presence of chronically occluded RCA with collaterals. His dose of lisinopril was increased to 40mg daily and Imdur was added to his medications. He is now chest pain free, feels weel, denies dyspnea, ambulating the hallway without distress at time of discharge. 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 Discharge Data Data Completed and Pending: Completed Studies During Hospitalization Category Date Time Status XR chest 1V dhiraj ble [id number] Stat Exams 12/10/19 01:32 Completed CV echo complete* [id number] Routine Ultrasound 12/10/19 08:53 Completed Labs from last 24 hours 12/11/19 12/11/19 05:12 05:12 WBC 9.2 RBC 4.72 Hgb 12.2 Hct 39.9 L MCV 84.5 MCH 25.8 L MCHC 30.6 RDW 14.6 Plt Count 288 MPV 9.9 Neut % (Auto) 68.0 Lymph % (Auto) 20.6 Andrew % (Auto) 8.9 Eos % (Auto) 1.7 Baso % (Auto) 0.5 Neut # (Auto) 6.2 Lymph # (Auto) 1.9 Andrew # (Auto) 0.8 Eos # (Auto) 0.2 Baso # (Auto) 0.1 Nucleated RBC % (a uto) 0 Nucleated RBCs # 0.0 Sodium 138 Potassium 4.5 Chloride 104 Carbon Dioxide 26 Anion Gap 12.5 BUN 19 Creatinine 1.1 Glucose 157 H Calculated Osmolal ity 286 Calcium 8.4 L Vitals: Last Vital Signs Temp 98.0 F 12/11/19 07:58 Pulse 77 12/11/19 07:58 Resp 18 12/11/19 07:58 BP 127/67 12/11/19 07:58 Pulse Ox 94 12/11/19 07:58 Discharge Plan Discharge Patient Disposition: Xfer SNF Condition: Stable Prescriptions: New isosorbide mononitrate 30 mg Tablet Extended Release 24 Hr 30 mg PO DAILY 30 Days Qty: 30 RF: 0 morphine 4 mg/mL Solution 4 mg IVP Q4H PRN (Reason: Severe Pain) Qty: 0 RF: 0 ipratropium-albuterol 0.5 mg-3 mg(2.5 mg base)/3 mL Solution For Nebulization 3 ml inhalation Q6H.RESPIRATORY PRN (Reason: Shortness Of Breath) Qty: 0 RF: 0 levothyroxine 125 mcg Tablet 125 mcg PO DAILY Qty: 0 RF: 0 metoprolol succinate 25 mg Tablet Extended Release 24 Hr 12.5 mg PO DAILY Qty: 0 RF: 0 amlodipine 10 mg Tablet 10 mg PO DAILY Qty: 0 RF: 0 acetaminophen 325 mg Tablet 650 mg PO Q6H PRN (Reason: Mild/Mod Pain Or Temp >/= 101) Qty: 0 RF: 0 aspirin 81 mg Tablet,Delayed Release (Dr/Ec) 81 mg PO DAILY Qty: 0 RF: 0 Eliquis 5 mg Tablet 5 mg PO BID Qty: 0 RF: 0 atorvastatin 40 mg Tablet 40 mg PO BEDTIME Qty: 0 RF: 0 buspirone 10 mg Tablet 10 mg PO DAILY Qty: 0 RF: 0 hydroxyzine HCl 10 mg Tablet 20 mg PO BID PRN (Reason: Anxiety) Qty: 0 RF: 0 lisinopril 20 mg Tablet 40 mg PO DAILY Qty: 0 RF: 0 Discharge Orders: Discharge Order (Routine); Ordered 12/11/19 Ordered By: Enma Hart Referrals: Jorge Beasley [Primary Care Provider] - Ace Rene MD [Physician] - 2 weeks Discharge Diet: Usual diet, Cardiac and Low Cholesterol Discharge Activity: Resume usual activity Discharge Attestations Time Spent in Discharge Care*: less than 30 min Quality Metrics Clinical Quality Measures During this hospital stay, did patient experience: None Coding Level of Care Code 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
[2019-12-11 14:04] VITALS: BP 127/67; PULSE 77; RESP 18; TEMP 36.7; O2SAT 94
== END 2019-12-11 14:43 | disposition skilled nursing facility (03) ==
LOC: ER 05:16 → CSU 05:17
PROVIDERS: Admitting Provider Internal Medicine; Emergency Provider Emergency Medicine; Family Provider Internal Medicine; PCP Internal Medicine; Visit Provider Student in an Organized Health Care Education/Training Program
DX: I16.0 Hypertensive urgency (principal); R07.2 Precordial pain; I25.110 Atherosclerotic heart disease of native coronary artery with unstable angina pectoris; I26.99 Other pulmonary embolism without acute cor pulmonale; Z99.81 Dependence on supplemental oxygen; J44.9 Chronic obstructive pulmonary disease, unspecified; Z79.01 Long term (current) use of anticoagulants; Z86.711 Personal history of pulmonary embolism; E03.9 Hypothyroidism, unspecified; I13.0 Hypertensive heart and chronic kidney disease with heart failure and stage 1 through stage 4 chronic kidney disease, or unspecified chronic kidney disease; N18.2 Chronic kidney disease, stage 2 (mild); Z86.73 Personal history of transient ischemic attack (TIA), and cerebral infarction without residual deficits; I50.20 Unspecified systolic (congestive) heart failure; F41.9 Anxiety disorder, unspecified; F32.9 Major depressive disorder, single episode, unspecified; G47.00 Insomnia, unspecified
CPT/HCPCS: 12345; 36415; 71045; 80048; 80053; 83690; 83735; 83880; 84484; 85025; 85378; 85610; 93005; 93306; 96360; 96361; 96374; 96375; 99283; 99285; G0378; J2270; J2405; J3490; J7030

== ENCOUNTER 2020-01-27 16:24 | Emergency (ER) | payer OTHER, MEDICARE, MEDICAID, SELFPAY ==
[2020-01-27 16:26] VITALS: BMI 41.5
[2020-01-27 16:34] VITALS: BP 112/57; PULSE 60; RESP 18; TEMP 36.4; O2SAT 96
--- NOTE | 2020-01-27 16:41 | ED_ITS ---
Entered by Sunita Castle, acting as scribe for Michelle Langford MD HPI - Seizure General: Chief Complaint: Seizure Stated Complaint: SEIZURES Time Seen by Provider: 01/27/20 16:43 Source: patient and EMS Mode of arrival: EMS Limitations: no limitations History of Present Illness: HPI Narrative: Agus is a 75-year-old male that is here from local senior living for a possible seizure. Patient states that he believes he just had muscle spasms. He states that he has history of back problems and states he felt like his back was spasming up. He denies any loss of consciousness. Seizure was witnessed by nursing staff and they were concerned it could be a seizure and sent him here. He has no seizure history. He denies any headache and he has no postictal. He did not bite his tongue or urinate on himself. MD complaint: seizure Seizure History: No Place: [facility]ISON Associated symptoms: Deny chest pain, chills or fever(s) Review of Systems Const: Denies: fever, chills, body aches or change in appetite Eyes: Denies: blurry vision or eye discomfort ENMT: Denies: throat pain or dental pain Card: Denies: chest pain Resp: Denies: shortness of breath GI: Denies: abdominal pain, nausea, vomiting or diarrhea : Denies: painful urination Musc: Denies: joint warmth Skin/Breast: Denies: rash Neuro: Reports: seizure-like activity; Denies: headache Psych: Denies: depression Santana/Lymph: Denies: easy bruising All/Imm: Denies: acute wheezing PFSH ED PFSH: Medical History (Updated 12/26/19 @ 12:32 by BENTLEY Sandoval) Chronic kidney disease, stage II (mild) COPD (chronic obstructive pulmonary disease) Coronary artery disease CVA (cerebral vascular accident) GI bleed Hypertension Hypertensive urgency Hypothyroidism Lower back pain Pulmonary embolism Spinal cord stimulator status Systolic congestive heart failure Surgical History H/O cardiac catheterization H/O shoulder surgery History of ankle surgery History of right-sided carotid endarterectomy Hx of cholecystectomy Social History Smoking and tobacco status: former smoker Physical Exam Const: COMMON NORMALS: no apparent distress, oriented x3 and healthy appearing HENMT: COMMON NORMALS: normocephalic and head/scalp atraumatic HEAD & SCALP: normocephalic and atraumatic Eye: COMMON NORMALS: PERRL and EOMs intact bilaterally PUPIL: Yes PERRL Neck/C-Spine: COMMON NORMALS: full ROM and supple Chest: COMMONS NORMALS: inspection of chest normal and palpation of chest normal Resp: COMMON NORMALS: normal respiratory effort, no retractions, no use of accessory muscles and clear to auscultation bilaterally AUSCULTATION: clear to auscultation bilaterally Cardio: COMMON NORMALS: regular rate, regular rhythm and no murmurs RATE: regular rate RHYTHM: regular rhythm GI: COMMON NORMALS: normal to inspection, nondistended, normoactive bowel sounds, soft to palpation, non-tender and no masses PALPATION: Yes soft Extremity: COMMON NORMALS: normal to inspection and full ROM Neuro: COMMON NORMALS: oriented x3, moves all extremities and no focal motor deficits Psych: COMMON NORMALS: mental status grossly normal, thought process normal and cooperative THOUGHT PROCESS: normal thought process Skin: COMMON NORMALS: no rashes or lesions noted and no wounds GENERAL SKIN EXAM: no rashes or lesions noted Course Vital Signs: Vital signs: Vital Signs Temperature 97.6 F 01/27/20 16:34 Pulse Rate 60 01/27/20 16:34 Respiratory Rate 18 01/27/20 16:34 Blood Pressure 112/57 01/27/20 16:34 Pulse Oximetry 96 01/27/20 16:34 MDM - Seizure MDM Narrative: Medical decision making narrative: Patient presents here with likely muscle spasms. Patient sent up to rule out seizure. He did not have a postictal period and has no signs of a seizure here. Will check his electrolytes though and a CT head trialed any major cause. Patient's care turned over to Dr. Ellis at this time to follow lab work and CT scan. Discharge Plan Discharge Prescriptions: No Action Effexor XR 150 MG capsule 150 mg PO DAILY RF: 0 Eliquis 5 MG tablet 5 mg PO BID RF: 0 Fleet Enema 118 ml bottle 1 CO DAILY PRN (Reason: Constipation) RF: 0 Lactobacillus acidophilus RF: 0 Milk of Magnesia 5 ml PO DAILY PRN (Reason: Constipation) RF: 0 Mucinex 600 MG tablet 600 mg PO BID RF: 0 Bell Nasal 1 ML spray 1 ml nasal BID RF: 0 Protonix 40 MG tablet 40 mg PO DAILY RF: 0 Sarna Sensitive 1 % lotion 1 applic topical DAILY PRN (Reason: Rash) RF: 0 acetaminophen 325 mg tablet 600 mg PO Q4H PRN (Reason: Pain) RF: 0 aspirin 81 MG tablet 81 mg PO DAILY RF: 0 atorvastatin 40 MG tablet 40 mg PO BEDTIME RF: 0 bisacodyl 10 mg suppository 10 mg CO DAILY PRN (Reason: Constipation) RF: 0 buspirone 10 MG tablet 10 mg PO TID RF: 0 glipizide 2.5 MG tablet 2.5 mg PO BID RF: 0 ipratropium-albuterol 0.5 MG inhaler 1 ml inhalation Q6H PRN (Reason: Shortness Of Breath) RF: 0 ketorolac 0.5 % drops 1 drp eye-both QID RF: 0 angsuof-kudsxdx-ednon petrolat 1 ML cream 5 ml transdermal TID PRN (Reason: Rash) RF: 0 metformin 500 MG tablet 500 mg PO DAILY RF: 0 ondansetron 4 MG tablet 4 mg PO Q6H PRN (Reason: Nausea) RF: 0 prednisolone acetate 1 % drops 1 drp eye-both BID RF: 0 tramadol 50 MG tablet 50 mg PO Q6H PRN (Reason: Pain) RF: 0 triamcinolone acetonide 1 GRAM cream 1 applic transdermal BID RF: 0 atorvastatin 40 mg Tablet 40 mg PO BEDTIME Qty: 0 RF: 0 acetaminophen 325 mg Tablet 650 mg PO Q6H PRN (Reason: Mild/Mod Pain Or Temp >/= 101) Qty: 0 RF: 0 ipratropium-albuterol 0.5 mg-3 mg(2.5 mg base)/3 mL Solution For Nebulization 3 ml inhalation Q6H.RESPIRATORY PRN (Reason: Shortness Of Breath) Qty: 0 RF: 0 lisinopril 20 mg Tablet 40 mg PO DAILY Qty: 0 RF: 0 aspirin 81 mg Tablet,Delayed Release (Dr/Ec) 81 mg PO DAILY Qty: 0 RF: 0 amlodipine 10 mg Tablet 10 mg PO DAILY Qty: 0 RF: 0 levothyroxine 125 mcg Tablet 125 mcg PO DAILY Qty: 0 RF: 0 buspirone 10 mg Tablet 10 mg PO DAILY Qty: 0 RF: 0 metoprolol succinate 25 mg Tablet Extended Release 24 Hr 12.5 mg PO DAILY Qty: 0 RF: 0 hydroxyzine HCl 10 mg Tablet 20 mg PO BID PRN (Reason: Anxiety) Qty: 0 RF: 0 Eliquis 5 mg Tablet 5 mg PO BID Qty: 0 RF: 0 morphine 4 mg/mL Solution 4 mg IVP Q4H PRN (Reason: Severe Pain) Qty: 0 RF: 0 Coding Level of Care Code ED 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
--- NOTE | 2020-01-27 16:45 | CTR_ITS ---
PROCEDURE INFORMATION: Exam: CT Head Without Contrast Exam date and time: 01/27/2020 4:46 PM Age: 75 years old Clinical indication: Other: Seizure TECHNIQUE: Imaging protocol: Computed tomography of the head without contrast. Total DLP: 857.77 mGy-cm Radiation optimization: All CT scans at this facility use at least one of these dose optimization techniques: automated exposure control; mA and/or kV adjustment per patient size (includes targeted exams where dose is matched to clinical indication); or iterative reconstruction. COMPARISON: CT head wo con* [id number] 10/06/2018 11:48 PM FINDINGS: Brain: No visible evidence of acute intracranial pathologic process or hemorrhage. 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 This remains stable. Old lacunar infarction anterior limb left internal capsule and anterior left lentiform nucleus. Evidence of small vessel ischemic disease with senile periventricular leukomalacia. Atrophic changes not inconsistent with the patient's chronological age. Ventricles: Normal. No ventriculomegaly. Bones/joints: Unremarkable. No acute fracture. Sinuses: Visualized sinuses are unremarkable. No fluid levels. Mastoid air cells: Right mastoiditis. Soft tissues: Unremarkable. Vasculature: Cerebral arterial sclerosis. CT/CT head wo con* [id number] IMPRESSION: 1. No visible evidence of acute intracranial pathologic process or hemorrhage. 2. Right mastoiditis. 3. 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 4. Old lacunar infarction anterior limb left internal capsule in anterior left lentiform nucleus. 5. Small vessel ischemic disease. 6. Cerebral arterial sclerosis. Radiation Dose CTDIVOL = (mGy): DLP = 857.77 (mGy-cm)
[2020-01-27 17:49] LABS: Anion Gap 15.9 (5-19); Blood Urea Nitrogen 19 mg/dL (8-23); Calcium 9.3 mg/dL (8.5-10.5); Carbon Dioxide 27 mmol/L (22-29); Chloride 101 mmol/L (98-107); Glucose 149 mg/dL (65-115); Osmolality Calculated 287 mOsm/kg (285-295); Potassium 4.9 mmol/L (3.5-5.1); Sodium 139 mmol/L (136-145)
[2020-01-27 17:52] VITALS: BP 95/56; PULSE 55; RESP 16; O2SAT 91
[2020-01-27 18:23] VITALS: BP 107/64; PULSE 61; RESP 18; TEMP 36.8; O2SAT 95
== END 2020-01-27 20:57 | disposition skilled nursing facility (03) ==
LOC: ER 02-06 11:50
PROVIDERS: Emergency Provider Emergency Medicine; Family Provider Internal Medicine; PCP Internal Medicine
DX: R56.9 Unspecified convulsions (principal); I13.0 Hypertensive heart and chronic kidney disease with heart failure and stage 1 through stage 4 chronic kidney disease, or unspecified chronic kidney disease; I50.20 Unspecified systolic (congestive) heart failure; N18.2 Chronic kidney disease, stage 2 (mild); J44.9 Chronic obstructive pulmonary disease, unspecified; I25.10 Atherosclerotic heart disease of native coronary artery without angina pectoris; E03.9 Hypothyroidism, unspecified; Z87.891 Personal history of nicotine dependence; Z86.73 Personal history of transient ischemic attack (TIA), and cerebral infarction without residual deficits; Z79.82 Long term (current) use of aspirin
CPT/HCPCS: 12345; 36415; 70450; 80048; 99282

== ENCOUNTER 2020-04-23 01:47 | Emergency (ER) | payer OTHER, MEDICARE, MEDICAID, SELFPAY ==
[2020-04-23] VITALS (70 sets, daily range): BP systolic 82–188; BP diastolic 46–106; PULSE 72–137; RESP 11–34; TEMP 36.6–37.1; O2SAT 89–98; BMI 30.2
--- NOTE | 2020-04-23 02:02 | ED_ITS ---
HPI - Nausea/Vomiting/Diarrhea General: Chief complaint: Nausea/Vomiting/Diarrhea Stated complaint: SYNCOPAL EPISODE / GI BLEED Time Seen by Provider: 04/23/20 01:51 Source: patient, EMS and old records reviewed Mode of arrival: EMS Limitations: no limitations History of Present Illness: HPI Narrative: Mr. Gillette is a nice 75-year-old male brought in by EMS with report of syncope. Apparently he was on the toilet at the care home when he was found unconscious. He is believed to have been out for 4 to 6 minutes. Patient is reported to have had coffee-ground emesis. Patient states she is had abdominal pain and diarrhea all day. He does have a history of C. difficile colitis. Patient is currently on Eliquis for a PE but he is not aware of any bright red blood in his stools but does admit to melena. Patient states he still is having abdominal pain and feels weak and tired all over. EMS reports patient was diaphoretic and hypotensive upon their arrival. He had a pressure as low as in the 50s systolic. He had 2 bilateral 16-gauge IVs started and was given approximately 750 cc of LR with a return to normotension. Associated nausea: Yes Associated symtoms: Reports nausea; Denies change in vision, chest pain, diaphoresis, dizziness, dysuria, fatigue, headache(s), malaise, palpitations or syncope Review of Systems Const: Denies: fever(s), chills, body aches, fatigue, malaise or diaphoresis Eyes: Denies: change in vision, blurry vision, blind spots or photophobia ENMT: Denies: throat pain, odynophagia, hoarseness, swelling of lips/tongue, ear or mastoid pain, ear discharge, change in hearing or nasal discharge Card: Denies: chest pain, palpitations, irregular heart rhythm, edema, lightheadedness, syncope, pre-syncope, dyspnea on exertion or orthopnea Resp: Denies: dyspnea, productive cough, non-productive cough, wheezing, hemoptysis or chest congestion GI: Reports: abdominal pain, nausea and vomiting; Denies: hematemesis, coffee ground emesis, heartburn, constipation, GI cramping, hematochezia or melena : Denies: flank pain, dysuria, urinary frequency, urinary urgency or hematuria Musc: Denies: neck pain, back pain, extremity pain, extremity swelling, joint pain, joint swelling, joint redness, joint warmth or joint stiffness Skin/Breast: Denies: rash, pruritus, erythema, skin tenderness or jaundice Neuro: Denies: headache(s), numbness in extremities, weakness in extremities, sensory changes, lack of coordination, difficulty walking, dizziness, vertigo, confusion or Slurred speech present Santana/Lymph: Denies: easy bruising, easy bleeding, petechiae, purpura or enlarged lymph nodes All/Imm: Denies: urticaria, throat swelling, tongue swelling, facial swelling or acute wheezing PFSH ED PFSH: Medical History Chronic kidney disease, stage II (mild) COPD (chronic obstructive pulmonary disease) Coronary artery disease CVA (cerebral vascular accident) GI bleed Hypertension Hypothyroidism Lower back pain Pulmonary embolism Spinal cord stimulator status Systolic congestive heart failure Surgical History H/O cardiac catheterization H/O shoulder surgery History of ankle surgery History of right-sided carotid endarterectomy Hx of cholecystectomy Family History (Updated 04/23/20 @ 05:40 by Ace Harris MD) Denies family history of Lung disease Hypertension Social History (Updated 04/23/20 @ 05:40 by Ace Harris MD) Smoking and tobacco status: former smoker Alcohol intake: never Substance/Drug Use: never Household members: other Details: Resident of a care home Physical Exam Const: COMMON NORMALS: no acute distress, patient oriented x3, no limitations, healthy appearing and well nourished GENERAL APPEARANCE: cooperative, well kempt and well developed HENMT: COMMON NORMALS: normocephalic, atraumatic, external ears normal, EAC's normal and Normal external nose present HEAD & SCALP: normal to inspection, normocephalic and atraumatic FACE & SINUS: normal facial exam and face symmetric NOSE: Normal external nose present and Normal nares present EXTERNAL EAR: Yes external ears normal EXTERNAL AUDITORY CANAL: EAC's normal MOUTH: Normal oral and palatal mucosa present, lip normal and tongue normal Eye: COMMON NORMALS: Equal, round and reactive pupils present and conjunctivae normal GENERAL EYE: appearance normal, both eyes and all related structures ALIGNMENT: Yes alignment normal PERIORBITAL: periorbital findings normal EYELID: eyelids normal CONJUNCTIVA: Yes conjunctivae normal SCLERA: sclerae normal PUPIL: Yes Equal, round and reactive pupils present Neck/C-Spine: COMMON NORMALS: full ROM, no lymphadenopathy, supple, no meningeal signs and no JVD GENERAL: Yes normal visual inspection and Yes trachea midline Chest: COMMONS NORMALS: normal inspection of the chest and normal palpation of entire chest wall Resp: COMMON NORMALS: normal respiratory effort, No retractions and No use of accessory muscles EFFORT & INSPECTION: Yes able to speak in complete sentences and Yes symmetric chest movement AUSCULTATION: no crackles, no rales, no rhonchi and no wheezes Cardio: COMMON NORMALS: no JVD, regular rate, regular rhythm, S1 normal heart sound present and S2 normal heart sound present RATE: regular rate RHYTHM: regular rhythm HEART SOUNDS: S1 normal heart sound present, S2 normal heart sound present, no click, no gallops, no murmurs, no rubs and abnormal split S2 GI: COMMON NORMALS: Soft to palpation and No hepatosplenomegaly present PALPATION: Yes Soft to palpation, No Tenderness to palpation present (GI), No Guarding due to palpation present (GI), No Rigid due to palpation, Yes No hepatosplenomegaly present, No Hernia present, No Palpable mass present and No Pulsatile mass present RECTAL EXAM: Yes normal sphincter tone and Yes heme negative stool : COMMON NORMALS: Yes no CVA tenderness BLADDER/KIDNEY EXAM: Yes no CVA tenderness Back/Pelvis: COMMON NORMALS: no CVA tenderness, thoracic and lumbar spine normal to inspection, no thoracic nor lumbar tenderness and thoraco-lumbar ROM normal Extremity: COMMON NORMALS: normal to inspection, full ROM, capillary refill normal, no joint enlargement, no clubbing, cyanosis or edema and no calf tenderness Neuro: COMMON NORMALS: patient oriented x3, CN's II-XII intact bilaterally, moves all extremities, no focal motor deficits and no sensory deficits noted MENINGEAL SIGNS: Yes no meningeal signs SPEECH: speech normal Psych: COMMON NORMALS: mental status grossly normal, Normal thought process present, cooperative, normal affect, speech normal and activity/motor behavior normal APPEARANCE: Yes well kempt SPEECH: Yes normal speech THOUGHT PROCESS: Normal thought process present Skin: COMMON NORMALS: no rashes or lesions noted, turgor normal, no jaundice, no petechiae and no mottling GENERAL SKIN EXAM: no rashes or lesions noted and turgor normal Course ED course: 414 -CT report was reviewed with Dr. Talavera. He recommends CTA to better evaluate for clot or other definitive cause for mesenteric ischemia. I have discussed with the patient the risks and benefits of this including injury of his kidneys and as a result if his kidneys fail he may have to have temporary or even lifelong dialysis. Patient understands this but feels as though being alive on dialysis is better than being . He is okay with this plan. At this time I am going to proceed with continuing to hydrate him to protect his kidneys. He received 1 L of LR prior to CT, he has had [address] and I will gently hydrate him at this time with normal saline. We will get a chest x-ray after the NG tube was placed and if he is not in volume overload we will get somewhat more aggressive with normal saline before CT to protect his kidneys but will not delay his CT. Clinically he does have significant tenderness on exam but not shira peritonitis. I do anticipate he is going to have to have a transfusion of packed red cells secondary to his hemoglobin being 9.4 and IV fluid hemodilution. Vital Signs: Vital signs: Vital Signs Temperature 98.4 F 04/23/20 10:42 Pulse Rate 119 H 04/23/20 10:42 Respiratory Rate 18 04/23/20 10:42 Blood Pressure 181/85 04/23/20 10:42 Pulse Oximetry 96 04/23/20 10:42 MDM - Nausea/Vomiting/Diarrhea MDM Narrative: Medical decision making narrative: 0530 -patient's blood pressure stable at this time. Repeat CT does not show any new acute significant problems. I have updated both Drs. Shaikh and Ilan. They agree with admission to the ICU for further care. Patient will have blood started, he has had IV antibiotics and is on a Protonix drip. This time he is stable and will be admitted ICU. Lab Data: Attestation: I reviewed the patient's lab results. Labs: Lab Results 04/23/20 04/23/20 04/23/20 Range/Units 02:13 02:13 02:13 WBC 13.0 H (4.0-10.0) 10^3/ uL RBC 4.90 (4.1-5.3) 10^6/u L Hgb 9.4 L (11.7-16.6) g/dL Hct 34.9 L (42.0-52.0) % MCV 71.2 L (80-94) fL MCH 19.2 L (28.0-34.0) pg MCHC 26.9 L (30.0-36.0) g/dL RDW 17.2 H (12.1-15.1) % Plt Count 475 H (130-400) 10^3/c mm MPV 10.3 (7.4-10.4) fL Neut % (Auto) 76.0 % Lymph % (Auto) 14.6 % [place] % (Auto) 7.2 % Eos % (Auto) 1.2 % Baso % (Auto) 0.5 % Neut # (Auto) 9.9 H (1.8-7.7) 10^3/u L Lymph # (Auto) 1.9 (0.8-4.8) 10^3/u L [place] # (Auto) 0.9 (0.2-0.9) 10^3/u L Eos # (Auto) 0.2 (0.0-0.8) 10^3/u L Baso # (Auto) 0.1 (0.0-0.1) 10^3/u L Nucleated RBC % (a uto) 0.2 % Nucleated RBCs # 0.0 /100WBC Sodium 135 L (136-145) mmol/L Potassium 4.7 (3.5-5.1) mmol/L Chloride 103 (98-107) mmol/L Carbon Dioxide 19 L (22-29) mmol/L Anion Gap 17.7 (5-19) BUN 23 (8-23) mg/dL Creatinine 1.7 H (0.7-1.2) mg/dL Glucose 197 H (65-115) mg/dL Calculated Osmolal ity 282 L (285-295) mOsm/k g Lactic Acid (0.5-2.2) mmol/L Lactic Acid (Sepsi s) (0.5-2.2) mmol/L Calcium 9.4 (8.5-10.5) mg/dL Magnesium 2.1 (1.7-2.3) mg/dL Total Bilirubin 0.7 (0.15-1.2) mg/dL AST 19 (0-40) U/L ALT 23 (0-41) U/L Alkaline Phosphata se 84 (40-130) IU/L Troponin I 6 Hour (0-15) ng/L Troponin I Hi Sens Del (0-12) ng/L Troponin T Baselin e (0-15) ng/L Troponin T 120 [place] (0-15) ng/L Delta Troponin T (0-10) ABS# Total Protein 7.8 (6.6-8.7) g/dL Albumin 4.3 (3.5-5.2) g/dL Globulin 3.5 (1.3-4.6) g/dL Lipase 23 (13-60) U/L Urine Color (Yellow) Urine Appearance (CLEAR) Urine pH (5-7) Ur Specific Gravit y (1.005-1.030) Urine Protein (Negative) Urine Glucose (UA) (Normal) Urine Ketones (Negative) Urine Blood (Negative) Urine Nitrate (Negative) Urine Bilirubin (NEGATIVE) Urine Urobilinogen (Negative) mg/dL Ur Leukocyte Ruba ase (Negative) Urine RBC (0-2) /hpf Urine WBC (0-5) /hpf Ur Squamous Epith Cells (0-5) Urine Bacteria (NONE) Hyaline Casts H. pylori IgG Anti body Negative (Negative) Blood Type Rho(D) Type Antibody Screen Crossmatch 04/23/20 04/23/20 04/23/20 Range/Units 02:13 02:13 02:15 WBC (4.0-10.0) 10^3/ uL RBC (4.1-5.3) 10^6/u L Hgb (11.7-16.6) g/dL Hct (42.0-52.0) % MCV (80-94) fL MCH (28.0-34.0) pg MCHC (30.0-36.0) g/dL RDW (12.1-15.1) % Plt Count (130-400) 10^3/c mm MPV (7.4-10.4) fL Neut % (Auto) % Lymph % (Auto) % [place] % (Auto) % Eos % (Auto) % Baso % (Auto) % Neut # (Auto) (1.8-7.7) 10^3/u L Lymph # (Auto) (0.8-4.8) 10^3/u L [place] # (Auto) (0.2-0.9) 10^3/u L Eos # (Auto) (0.0-0.8) 10^3/u L Baso # (Auto) (0.0-0.1) 10^3/u L Nucleated RBC % (a uto) % Nucleated RBCs # /100WBC Sodium (136-145) mmol/L Potassium (3.5-5.1) mmol/L Chloride (98-107) mmol/L Carbon Dioxide (22-29) mmol/L Anion Gap (5-19) BUN (8-23) mg/dL Creatinine (0.7-1.2) mg/dL Glucose (65-115) mg/dL Calculated Osmolal ity (285-295) mOsm/k g Lactic Acid 3.5 H (0.5-2.2) mmol/L Lactic Acid (Sepsi s) (0.5-2.2) mmol/L Calcium (8.5-10.5) mg/dL Magnesium (1.7-2.3) mg/dL Total Bilirubin (0.15-1.2) mg/dL AST (0-40) U/L ALT (0-41) U/L Alkaline Phosphata se (40-130) IU/L Troponin I 6 Hour (0-15) ng/L Troponin I Hi Sens Del (0-12) ng/L Troponin T Baselin e 27 H (0-15) ng/L Troponin T 120 [place] (0-15) ng/L Delta Troponin T (0-10) ABS# Total Protein (6.6-8.7) g/dL Albumin (3.5-5.2) g/dL Globulin (1.3-4.6) g/dL Lipase (13-60) U/L Urine Color (Yellow) Urine Appearance (CLEAR) Urine pH (5-7) Ur Specific Gravit y (1.005-1.030) Urine Protein (Negative) Urine Glucose (UA) (Normal) Urine Ketones (Negative) Urine Blood (Negative) Urine Nitrate (Negative) Urine Bilirubin (NEGATIVE) Urine Urobilinogen (Negative) mg/dL Ur Leukocyte Ruba ase (Negative) Urine RBC (0-2) /hpf Urine WBC (0-5) /hpf Ur Squamous Epith Cells (0-5) Urine Bacteria (NONE) Hyaline Casts H. pylori IgG Anti body (Negative) Blood Type A Positive Rho(D) Type Positive Antibody Screen Negative Crossmatch See Detail 04/23/20 04/23/20 04/23/20 Range/Units 04:30 05:28 05:35 WBC (4.0-10.0) 10^3/ uL RBC (4.1-5.3) 10^6/u L Hgb (11.7-16.6) g/dL Hct (42.0-52.0) % MCV (80-94) fL MCH (28.0-34.0) pg MCHC (30.0-36.0) g/dL RDW (12.1-15.1) % Plt Count (130-400) 10^3/c mm MPV (7.4-10.4) fL Neut % (Auto) % Lymph % (Auto) % [place] % (Auto) % Eos % (Auto) % Baso % (Auto) % Neut # (Auto) (1.8-7.7) 10^3/u L Lymph # (Auto) (0.8-4.8) 10^3/u L [place] # (Auto) (0.2-0.9) 10^3/u L Eos # (Auto) (0.0-0.8) 10^3/u L Baso # (Auto) (0.0-0.1) 10^3/u L Nucleated RBC % (a uto) % Nucleated RBCs # /100WBC Sodium (136-145) mmol/L Potassium (3.5-5.1) mmol/L Chloride (98-107) mmol/L Carbon Dioxide (22-29) mmol/L Anion Gap (5-19) BUN (8-23) mg/dL Creatinine (0.7-1.2) mg/dL Glucose (65-115) mg/dL Calculated Osmolal ity (285-295) mOsm/k g Lactic Acid (0.5-2.2) mmol/L Lactic Acid (Sepsi s) 2.4 H (0.5-2.2) mmol/L Calcium (8.5-10.5) mg/dL Magnesium (1.7-2.3) mg/dL Total Bilirubin (0.15-1.2) mg/dL AST (0-40) U/L ALT (0-41) U/L Alkaline Phosphata se (40-130) IU/L Troponin I 6 Hour (0-15) ng/L Troponin I Hi Sens Del (0-12) ng/L Troponin T Baselin e (0-15) ng/L Troponin T 120 [place] 19.99 H (0-15) ng/L Delta Troponin T -7.01 L (0-10) ABS# Total Protein (6.6-8.7) g/dL Albumin (3.5-5.2) g/dL Globulin (1.3-4.6) g/dL Lipase (13-60) U/L Urine Color Yellow (Yellow) Urine Appearance Sl hazy (CLEAR) Urine pH 5 (5-7) Ur Specific Gravit y 1.015 (1.005-1.030) Urine Protein 1+ H (Negative) Urine Glucose (UA) 1+ (Normal) Urine Ketones Negative (Negative) Urine Blood Neg (Negative) Urine Nitrate Negative (Negative) Urine Bilirubin Neg (NEGATIVE) Urine Urobilinogen 1 H (Negative) mg/dL Ur Leukocyte Ruba ase Negative (Negative) Urine RBC Rare (0-2) /hpf Urine WBC 0-4 H (0-5) /hpf Ur Squamous Epith Cells Rare (0-5) Urine Bacteria Trace (NONE) Hyaline Casts 0-4 H H. pylori IgG Anti body (Negative) Blood Type Rho(D) Type Antibody Screen Crossmatch 04/23/20 04/23/20 Range/Units 08:13 09:40 WBC 19.8 H (4.0-10.0) 10^3/ uL RBC 5.07 (4.1-5.3) 10^6/u L Hgb 10.5 L (11.7-16.6) g/dL Hct 37.2 L (42.0-52.0) % MCV 73.4 L (80-94) fL MCH 20.7 L (28.0-34.0) pg MCHC 28.2 L (30.0-36.0) g/dL RDW 19.7 H (12.1-15.1) % Plt Count 448 H (130-400) 10^3/c mm MPV 10.0 (7.4-10.4) fL Neut % (Auto) 86.5 % Lymph % (Auto) 6.2 % [place] % (Auto) 6.4 % Eos % (Auto) 0.0 % Baso % (Auto) 0.3 % Neut # (Auto) 17.1 H (1.8-7.7) 10^3/u L Lymph # (Auto) 1.2 (0.8-4.8) 10^3/u L [place] # (Auto) 1.3 H (0.2-0.9) 10^3/u L Eos # (Auto) 0.0 (0.0-0.8) 10^3/u L Baso # (Auto) 0.1 (0.0-0.1) 10^3/u L Nucleated RBC % (a uto) 0 % Nucleated RBCs # 0.0 /100WBC Sodium (136-145) mmol/L Potassium (3.5-5.1) mmol/L Chloride (98-107) mmol/L Carbon Dioxide (22-29) mmol/L Anion Gap (5-19) BUN (8-23) mg/dL Creatinine (0.7-1.2) mg/dL Glucose (65-115) mg/dL Calculated Osmolal ity (285-295) mOsm/k g Lactic Acid (0.5-2.2) mmol/L Lactic Acid (Sepsi s) (0.5-2.2) mmol/L Calcium (8.5-10.5) mg/dL Magnesium (1.7-2.3) mg/dL Total Bilirubin (0.15-1.2) mg/dL AST (0-40) U/L ALT (0-41) U/L Alkaline Phosphata se (40-130) IU/L Troponin I 6 Hour 17.69 H (0-15) ng/L Troponin I Hi Sens Del -9.31 L (0-12) ng/L Troponin T Baselin e (0-15) ng/L Troponin T 120 [place] (0-15) ng/L Delta Troponin T (0-10) ABS# Total Protein (6.6-8.7) g/dL Albumin (3.5-5.2) g/dL Globulin (1.3-4.6) g/dL Lipase (13-60) U/L Urine Color (Yellow) Urine Appearance (CLEAR) Urine pH (5-7) Ur Specific Gravit y (1.005-1.030) Urine Protein (Negative) Urine Glucose (UA) (Normal) Urine Ketones (Negative) Urine Blood (Negative) Urine Nitrate (Negative) Urine Bilirubin (NEGATIVE) Urine Urobilinogen (Negative) mg/dL Ur Leukocyte Ruba ase (Negative) Urine RBC (0-2) /hpf Urine WBC (0-5) /hpf Ur Squamous Epith Cells (0-5) Urine Bacteria (NONE) Hyaline Casts H. pylori IgG Anti body (Negative) Blood Type Rho(D) Type Antibody Screen Crossmatch Imaging Data^: CT Head: Radiologist's impression: [place] [address] CT Scan Report Signed Patient: Agus Gillette Unit #: [id number] : 1945 Age/Sex: 75 / M ADM Date: 04/23/20 Loc: ER Room/Bed: Attending Dr: Ordering Provider/Ordering MD: Haylee Franklin DO Date of Service: 04/23/20 Procedure(s): CT head wo con* [id number] Accession Number(s): [id number] Report Number: [id number] PROCEDURE INFORMATION: Exam: CT Head Without Contrast Exam date and time: 04/23/2020 2:42 AM Age: 75 years old Clinical indication: Syncope and collapse; Additional info: Syncope, on eliquis TECHNIQUE: Imaging protocol: Computed tomography of the head without contrast. Radiation optimization: All CT scans at this facility use at least one of these dose optimization techniques: automated exposure control; mA and/or kV adjustment per patient size (includes targeted exams where dose is matched to clinical indication); or iterative reconstruction. COMPARISON: No relevant prior studies available. RADIATION DOSE METRICS: Total DLP: 878.09 mGy-cm FINDINGS: Brain: No acute intracranial hemorrhage or mass effect. There is decreased attenuation in the periventricular white matter, likely from microvascular disease. Suspect small old lacunar infarcts in the basal ganglia/internal capsule regions bilaterally, more prominent on the left. Old white matter infarct in the left posterior parietal region. No definite acute infarct by CT. MRI could be more sensitive/specific for detection, as clinically directed. Ventricles: Ventricle size is normal for age. Bones/joints: No definite acute skull fracture. Sinuses: Minimal focal mucosal thickening versus small polyp in the sphenoid sinus. Included paranasal sinuses otherwise appear essentially clear. Mastoid air cells: Partial opacification/fluid involving right mastoid air cells. Vasculature: Prominent vascular calcifications in the internal carotid and vertebral basilar systems. CT/CT head wo con* [id number] IMPRESSION: 1. No acute intracranial hemorrhage or mass effect. 2. Changes of microvascular disease, and old infarcts, details above. 3. No definite acute infarct by CT, see above. 4. Other findings discussed above. Radiation Dose CTDIVOL = (mGy): DLP = 878.09 (mGy-cm) Dictated By: Roger Dean MD Signed By: Roger Dean MD Signed Date/Time: 04/23/20335 DD/ 4 CT Abd/Pel: Radiologist's impression: [place] [address] CT Scan Report Signed Patient: Agus Gillette Unit #: [id number] : 1945 Age/Sex: 75 / M ADM Date: 04/23/20 Loc: ER Room/Bed: Attending Dr: Ordering Provider/Ordering MD: Haylee Franklin DO Date of Service: 04/23/20 Procedure(s): CT abdomen pelvis w con* [id number] Accession Number(s): [id number] Report Number: [id number] PROCEDURE INFORMATION: Exam: CT Abdomen And Pelvis With Contrast Exam date and time: 04/23/2020 2:41 AM Age: 75 years old Clinical indication: Abdominal pain; Generalized; Prior surgery; Surgery type: Cholecystectomy; Additional info: Abdominal pain, syncope, on eliquis TECHNIQUE: Imaging protocol: Computed tomography of the abdomen and pelvis with intravenous contrast. Radiation optimization: All CT scans at this facility use at least one of these dose optimization techniques: automated exposure control; mA and/or kV adjustment per patient size (includes targeted exams where dose is matched to clinical indication); or iterative reconstruction. Contrast material: VISI; Contrast volume: 95 ml; Contrast route: 16G; COMPARISON: No relevant prior studies available. RADIATION DOSE METRICS: Total DLP: 1230.34 mGy-cm FINDINGS: Tubes, catheters and devices: Nerve stimulator device noted. Mediastinal space: Small hiatal hernia. Liver: No mass. Gallbladder and bile ducts: No calcified stones. No ductal dilation. Pancreas: No ductal dilation. Spleen: No splenomegaly. Adrenals: No mass. Kidneys and ureters: No hydronephrosis. Stomach and bowel: There dilated fluid-filled loops of small bowel up to a suspect transition point in the right lower quadrant. Colonic diverticulosis without findings of diverticulitis. Appendix: No evidence of appendicitis. Intraperitoneal space: No free air. No significant fluid collection. Vasculature: There is gas in the superior mesenteric vein and multiple mesenteric venous branches. There is portal venous gas. Atherosclerotic changes of the aorta. Lymph nodes: No enlarged lymph nodes. Bladder: Unremarkable as visualized. Reproductive: Prostate gland is enlarged. Bones/joints: Multilevel degenerative changes. Soft tissues: Unremarkable. CT/CT abdomen pelvis w con* [id number] IMPRESSION: Findings suggestive of small-bowel obstruction with transition point in the right lower quadrant. There is portal venous gas and mesenteric venous gas which can be seen with bowel ischemia. Radiation Dose CTDIVOL = (mGy): DLP = 1230.34 (mGy-cm) Dictated By: Tro Leo MD Signed By: Tor eLo MD Signed Date/Time: 04/23/20346 DD/ 4 CTA Abdomen and Pelvis: Radiologist's impression: [address] [address] [address] Scan Report Signed Patient: Agus Gillette Unit #: [id number] : 1945 Age/Sex: 75 / M ADM Date: 04/23/20 Loc: ER Room/Bed: Attending Dr: Ordering Provider/Ordering MD: Haylee Franklin DO Date of Service: 04/23/20 Procedure(s): CT angio abdomen pelvis [id number] Accession Number(s): [id number] Report Number: [id number] PROCEDURE INFORMATION: Exam: CT Angiography Abdomen and Pelvis With Contrast Exam date and time: 04/23/2020 4:31 AM Age: 75 years old Clinical indication: Abdominal pain; Generalized; Prior surgery; Surgery type: Gb; Additional info: Abdominal pain, signs of mesenteric ischemia TECHNIQUE: Imaging protocol: Computed tomographic angiography of the abdomen and pelvis with intravenous contrast material. 3D rendering: MIP and/or 3D reconstructed images were created by the technologist. Radiation optimization: All CT scans at this facility use at least one of these dose optimization techniques: automated exposure control; mA and/or kV adjustment per patient size (includes targeted exams where dose is matched to clinical indication); or iterative reconstruction. Contrast material: VISI; Contrast volume: 95 ml; Contrast route: 16G; COMPARISON: CT abdomen pelvis w con* [id number] 04/23/2020 2:57 AM RADIATION DOSE METRICS: Total DLP: 1339.43 mGy-cm FINDINGS: Tubes, catheters and devices: NG tube is identified in the stomach. Mackey catheter is identified in the bladder. Aorta: Diffuse atherosclerotic changes of the aorta and its associated branches including the superior mesenteric artery predominantly at its origin. Celiac trunk and mesenteric arteries: The SMA otherwise appears patent. Renal arteries: There is dense calcification at the origin of the right renal artery. Right iliac arteries: No occlusion or significant stenosis. Left iliac arteries: No occlusion or significant stenosis. Liver: No mass. There is portal venous gas. Gallbladder and bile ducts: Status post cholecystectomy. Pancreas: Unremarkable. No mass. No ductal dilation. Spleen: Unremarkable. No splenomegaly. Adrenals: Unremarkable. No mass. Kidneys and ureters: Unremarkable. No solid mass. No hydronephrosis. Stomach and bowel: Diffuse small bowel dilation with a suspect transition point in the right lower quadrant slightly increased compared to prior exam. No small bowel pneumatosis. No significant small bowel wall thickening or areas of abnormal enhancement. Again redemonstration of suspect gastric pneumatosis allowing for limitations due to minimal gastric distention. Colonic diverticulosis without findings of diverticulitis. Appendix: The appendix is not identified. Intraperitoneal space: No free air. Lymph nodes: Unremarkable. No enlarged lymph nodes. Vasculature: There is mesenteric venous gas. Bladder: Unremarkable. No mass. Reproductive: Prostate gland is enlarged. Bones/joints: No acute fracture. No dislocation. Soft tissues: Unremarkable. CT/CT angio abdomen pelvis [id number] IMPRESSION: 1. Diffuse atherosclerotic changes of the aorta and its associated branches including the superior mesenteric artery predominantly at its origin. The SMA otherwise appears patent. 2. Redemonstration of portal venous and mesenteric gas as previously noted. 3. Distal small bowel obstruction with increased bowel distention compared to prior exam. No small bowel pneumatosis. 4. Again redemonstration of suspect gastric pneumatosis allowing for limitations due to minimal gastric distention. Radiation Dose CTDIVOL = (mGy): DLP = 1339.43 (mGy-cm) Dictated By: Tor Leo MD Signed By: Tor Leo MD Signed Date/Time: 04/23/20526 DD/ 6 CXR: My impression: No acute pulmonary vascular congestion. NG tube with proper placement. EKG Data^: EKG 1: Attestation: I personally reviewed and interpreted this EKG as follows: EKG interpretation date: 04/23/20 EKG interpretation time: 02:35 Interpretation: Normal sinus rhythm at 81 beats a minute, normal axis, LVH with mild strain pattern, nonspecific ST and T wave changes, PVC noted. Similar to previous. Discharge Plan Discharge Patient Disposition: Admitted As Inpatient Clinical Impression: Acute GI bleeding Condition: Stable Referrals: Shira Beasley [Primary Care Provider] - Discharge Date/Time: 04/23/20 10:44 Coding Level of Care Code ED Reversal Print Inspector for Chg Fwd Exam Comprehensive
[2020-04-23] MEDS: pantoprazole 40 MG in sodium chloride 0.9% (plus) 100 ML 20 MG IV (02:12)
[2020-04-23] MEDS: lactated ringers 1,000 ML 100 ML IV (02:13)
[2020-04-23] MEDS: ondansetron 2 mg/ML SDV 2 mL 4 MG IVP ×2 (02:13→03:20)
[2020-04-23] MEDS: pantoprazole 40 mg SDV 80 MG IVP (02:13)
[2020-04-23 02:25] LABS: Basophils # 0.1 10^3/uL (0.0-0.1); Basophils % 0.5 %; Eosinophils # 0.2 10^3/uL (0.0-0.8); Eosinophils % 1.2 %; Hematocrit 34.9 % (42.0-52.0); Hemoglobin 9.4 g/dL (11.7-16.6); Lymphocytes # 1.9 10^3/uL (0.8-4.8); Lymphocytes % 14.6 %; Mean Corpuscular HGB Conc 26.9 g/dL (30.0-36.0); Mean Corpuscular Hemoglobin 19.2 pg (28.0-34.0); Mean Corpuscular Volume 71.2 fL (80-94); Mean Platelet Volume 10.3 fL (7.4-10.4); Monocytes # 0.9 10^3/uL (0.2-0.9); Monocytes % 7.2 %; Neutrophils # 9.9 10^3/uL (1.8-7.7); Nucleated Red Blood Cells % 0.2 %; Platelet Count 475 10^3/cmm (130-400); Red Cell Distribution Width 17.2 % (12.1-15.1)
[2020-04-23 02:31] LABS: H. Pylori IgG Antibody Negative (Negative)
[2020-04-23 02:37] LABS: Lactic Sepsis W/Reflex 3.5 mmol/L (0.5-2.2)
[2020-04-23 02:38] LABS: Alanine Aminotransferase 23 U/L (0-41); Albumin Level 4.3 g/dL (3.5-5.2); Alkaline Phosphatase 84 IU/L (40-130); Anion Gap 17.7 (5-19); Aspartate Amino Transferase 19 U/L (0-40); Blood Urea Nitrogen 23 mg/dL (8-23); Calcium 9.4 mg/dL (8.5-10.5); Carbon Dioxide 19 mmol/L (22-29); Chloride 103 mmol/L (98-107); Globulin 3.5 g/dL (1.3-4.6); Glucose 197 mg/dL (65-115); Lipase 23 U/L (13-60); Magnesium 2.1 mg/dL (1.7-2.3); Osmolality Calculated 282 mOsm/kg (285-295); Potassium 4.7 mmol/L (3.5-5.1); Sodium 135 mmol/L (136-145); Total Bilirubin 0.7 mg/dL (0.15-1.2); Total Protein 7.8 g/dL (6.6-8.7)
[2020-04-23 02:40] LABS: Troponin(5th) Baseline 27 ng/L (0-15)
[2020-04-23] MEDS: iodixanol 320 mg/mL 100mL Btl IV ×2 (03:22→05:12)
--- NOTE | 2020-04-23 03:48 | XR_ITS ---
WS: [id number] Portable AP upright chest, 04/23/2020 Clinical Data: after NG tube placed Comparison: Portable chest, 12/10/2019. Findings: No nodules, masses or effusions are seen. The heart is normal. The pulmonary vascularity is not increased. No pneumonia or pneumothorax is seen. The nasogastric tube appears to be within the e sophagus and ends in the region of the stomach. Monitor leads are on the chest wall. Thoracic epidura l stimulator wires are seen. There are clips in the right supraclavicular region from surgery. The ao rtic arch and descending aorta are tortuous. XR/XR chest 1V portable [id number] Impression: 1. Atherosclerosis. 2. Nasogastric tube appears to end within the stomach.
--- NOTE | 2020-04-23 03:53 | ECG_ITS ---
Measurements Intervals [place] Rate: 83 P: 73 LA: 183 QRS: -4 QRSD: 116 T: 45 QT: 377 QTc: 445 Possible SINUS RHYTHM LEFT VENTRICULAR HYPERTROPHY AND ST-T CHANGE [VOLTAGE CRITERIA PLUS ST/T ABNORMALITY] INFERIOR MYOCARDIAL INFARCTION , OF INDETERMINATE AGE [40+ ms Q WAVE AND/OR ST/T ABNORMALITY IN II/aVF] ANTEROLATERAL MYOCARDIAL INFARCTION , PROBABLY OLD [40+ ms Q WAVE IN I/aVL/V3-V6] Compared to ECG 12/10/2019 03:25:39 Left ventricular hypertrophy now present ST (T wave) deviation now present Myocardial infarct finding still present Electronically Signed On 04-23-2020 21:09:36 CDT by Carolina Fang M.D. [email or web address]
[2020-04-23 04:04] LABS: Reflex Lactate Order REFLEX LACTIC ORDERD
--- NOTE | 2020-04-23 04:11 | PM.HP ---
Providers/Chief Complaint Primary Care Provider: Jorge Beasley Chief Complaint: SYNCOPAL EPISODE / GI BLEED History of Present Illness Agus Gillette is a 75 year old male who has history of established coronary disease 100% occlusion of RCA being managed medically, 3 L oxygen dependent for COPD mostly at night, heart failure improved ejection fraction, on Eliquis for PE, came in with chief complaint of coffee-ground emesis and melanotic stools. [facility], patient is stating that today around 2 PM he started experiencing right lower quadrant pain which was getting worse gradually, after that he started experiencing black tarry stools. Patient started experiencing coffee-ground emesis with distention of his abdomen. he was on the toilet seat when he experienced an syncopal event. Nursing staff noticed a large black tarry bowel movement. Diagnostics in the ER revealed microcytic anemia hemoglobin dropped from 12-9. He was given 2 L of normal saline which improved his hypertension, I asked ER physician at blood transfusion instead of fluid to avoid fluid overload state because of his low EF. Dr. Talavera has been notified who requested CTA abdomen pelvis to look for colon perforation versus signs of ischemic colitis. Imaging of his abdomen portal venous gas, mesenteric gas, gastric pneumatosis As soon as NG was placed we were able to get 700 cc of coffee-ground content Patient was explained the risk of contrast-induced nephropathy and temporary versus permanent need of dialysis for which patient agreed. Risks and complications explained all questions were answered to his satisfaction CT abdomen findings suggestive of small bowel obstruction Review of Systems Const: Reports: chills, body aches, change in appetite and fatigue; Denies: fever(s) Eyes: Denies: change in vision ENMT: Denies: throat pain Card: Denies: chest pain Resp: Denies: dyspnea GI: Reports: abdominal pain, nausea, vomiting, bloating, GI cramping and melena : Denies: flank pain, difficulty urinating or urinary frequency Musc: Denies: neck pain Skin/Breast: Denies: rash Neuro: Denies: headache(s) Psych: Denies: anxiety Endo: Denies: polyuria Santana/Lymph: Denies: easy bruising All/Imm: Denies: urticaria Medications/Allergies Home Medications Medication Instructions Recorded Confirmed Last Taken Type Effexor XR 150 mg PO DAILY 12/11/19 01/27/20 01/27/20 History Fleet Enema 118 ml UT DAILY PRN 12/11/19 01/27/20 Unknown History Lactobacillus acidophilus 1 tab PO TID 12/11/19 01/27/20 01/27/20 History Milk of Magnesia 5 ml PO DAILY PRN 12/11/19 01/27/20 Unknown History Mucinex 600 mg PO BID 12/11/19 01/27/20 01/27/20 History [place] Nasal 1 ml NASAL BID 12/11/19 01/27/20 01/27/20 History Protonix 40 mg PO DAILY 12/11/19 01/27/20 01/27/20 History [place] Sensitive 1 applic TOPICAL DAILY PRN 12/11/19 01/27/20 Unknown History acetaminophen 650 mg PO Q6H PRN #0 tab 12/11/19 01/27/20 Unknown Rx amlodipine 10 mg PO DAILY #0 tab 12/11/19 01/27/20 01/27/20 Rx apixaban [Eliquis] 5 mg PO BID #0 tab 12/11/19 01/27/20 01/27/20 Rx aspirin 81 mg PO DAILY #0 tab 12/11/19 01/27/20 01/27/20 Rx atorvastatin 40 mg PO BEDTIME #0 tab 12/11/19 01/27/20 01/26/20 Rx bisacodyl 10 mg UT DAILY PRN 12/11/19 01/27/20 Unknown History buspirone 10 mg PO DAILY #0 tab 12/11/19 01/27/20 01/27/20 Rx glipizide 2.5 mg PO BID 12/11/19 01/27/20 01/27/20 History hydroxyzine HCl 20 mg PO BID PRN #0 tab 12/11/19 01/27/20 Unknown Rx ipratropium-albuterol 3 ml INHALATION Q6H.RESPIRATORY 12/11/19 01/27/20 Unknown Rx PRN #0 ml ketorolac 1 drp EYE-BOTH QID 12/11/19 01/27/20 01/27/20 History levothyroxine 125 mcg PO DAILY #0 tab 12/11/19 01/27/20 01/27/20 Rx lisinopril 40 mg PO DAILY #0 tab 12/11/19 01/27/20 01/27/20 Rx metformin 500 mg PO DAILY 12/11/19 01/27/20 01/27/20 History metoprolol succinate 12.5 mg PO DAILY #0 tab 12/11/19 01/27/20 01/27/20 Rx ondansetron 4 mg PO Q6H PRN 12/11/19 01/27/20 Unknown History prednisolone acetate 1 drp EYE-BOTH BID 12/11/19 01/27/20 01/27/20 History tramadol 50 mg PO Q6H PRN 12/11/19 01/27/20 Unknown History triamcinolone acetonide 1 applic TRANSDERMAL BID 12/11/19 01/27/20 01/27/20 History alprazolam 0.5 mg PO TID PRN 01/27/20 01/27/20 Unknown History budesonide-formoterol [Symbicort] 1 puff INHALATION BID 01/27/20 01/27/20 01/27/20 History guaifenesin [Robafen] 100 mg PO PRN 01/27/20 01/27/20 Unknown History isosorbide mononitrate 30 mg PO DAILY 01/27/20 01/27/20 01/27/20 History prednisone 40 mg PO DAILY 01/27/20 01/27/20 01/27/20 History sodium chloride [Deep Sea Nasal] 1 spray INTRANASAL Q6H PRN 01/27/20 01/27/20 Unknown History tizanidine 4 mg PO Q8H 01/27/20 01/27/20 01/27/20 History Allergies Allergy/AdvReac Type Severity Reaction Status Date / Time oxycodone Allergy Unknown Verified 01/27/20 16:38 Penicillins Allergy Unknown Verified 01/27/20 16:38 simvastatin Allergy Unknown Verified 01/27/20 16:38 PFSH Acute PFSH: Medical History Chronic kidney disease, stage II (mild) COPD (chronic obstructive pulmonary disease) Coronary artery disease CVA (cerebral vascular accident) GI bleed Hypertension Hypothyroidism Lower back pain Pulmonary embolism Spinal cord stimulator status Systolic congestive heart failure Surgical History H/O cardiac catheterization H/O shoulder surgery History of ankle surgery History of right-sided carotid endarterectomy Hx of cholecystectomy Family History (Updated 04/23/20 @ 05:40 by Ace Harris MD) Denies family history of Lung disease Hypertension Social History (Updated 04/23/20 @ 05:40 by Ace Harris MD) Smoking and tobacco status: former smoker Alcohol intake: never Substance/Drug Use: never Household members: other Details: [facility] of a [facility] Vitals/I&O/Wt Last Vital Signs Pulse 83 04/23/20 03:23 Resp 20 H 04/23/20 03:23 BP 101/71 04/23/20 03:23 Pulse Ox 93 04/23/20 03:23 Weight last 48 hrs Weight 92.986 kg Physical Exam Narrative: EXAM NARRATIVE: head To toe examination Patient is awake alert oriented x3 Complexion is pale When I entered the room his blood pressure was 87/60 which improved to 127/60 on second liter fluid resuscitation Patient is extremely dry with dry mucosal membranes NG tube draining coffee ground contents 700 cc obtained in 10-minute Abdomen is tender to mild on deep palpation especially around right lower quadrant area, bowel sounds are very sluggish, distended, bloated localized signs of peritonitis S1, S2 no tachycardia Lungs are clear to auscultation Neurologically nonfocal Lower extremity no signs of edema gangrene or ulcer Patient had a black tarry stool/melanotic stool in the ER Data : 04/23/20 02:13 04/23/20 02:13 A&P Assessment and plan (1) Ischemic bowel disease: Status: Acute (2) Acute GI bleeding: Status: Acute (3) Small bowel obstruction: Status: Acute (4) Hypothyroidism: Status: Acute (5) Systolic congestive heart failure: Status: Acute Qualifiers: Heart failure chronicity: chronic Qualified Code(s): I50.22 - Chronic systolic (congestive) heart failure (6) Pulmonary embolism: Status: Acute (7) Acute blood loss anemia: Status: Acute (8) Acute renal failure superimposed on stage 2 chronic kidney disease: Status: Acute Additional A&P Information Small bowel obstruction with melanotic stool & coffee-ground emesis High lactic acid, anemia, gastric vasculature consistent with atherosclerotic plaque I believe patient had a transient episode of hypoperfusion to small bowel with underlying atherosclerotic plaque which caused ischemic bowel syndrome, gastric pneumatosis seen on CTA No active bowel perforation seen, chest x-ray does not show air under diaphragm, Patient has been on Eliquis, EKG did not show A. fib n.p.o. NG to suction General surgery consult, Dr. Talavera has been updated No acute indication for surgery He might need colonoscopy for diagnostic purpose Acute blood loss microcytic anemia Hold Eliquis, n.p.o., NG to suction, Protonix 40 IV twice daily Getting first unit of PRBC Acute on chronic kidney disease stage II Baseline creatinine around 1-1.1 Hold nephrotoxic agent, massive atherosclerotic plaque at renal artery origin No active CHF exacerbation I believe this is secondary to hypotension due to active GI bleed Patient has received contrast twice for CT abdomen and CTA abdomen today Closely monitor for development of contrast-induced nephropathy, would give him 1 amp of bicarb Combined diastolic /systolic congestive heart failure EF improved from 35 to 55% No acute decompensation Pulmonary embolism currently on Eliquis Hold Eliquis for now Full code DVT prophylaxis: Not indicated because of GI bleed N.p.o. Attestations Medical Necessity Statement*: During stay in the hospital cross more than 2 midnights he carries guarded prognosis with underlying multiple comorbid conditions, currently need IV fluid resuscitation, blood transfusion, atherosclerotic plaque causing ischemic bowel Time Spent in Patient Care: 60mins Coding Level of Care Code Acute Walking Dragline Oiler for g Fwd Diagnoses Ischemic bowel disease K55.9 Acute GI bleeding K92.2 Small bowel obstruction K56.609 Hypothyroidism E03.9 Systolic congestive heart failure I50.22 Heart failure chronicity: chronic Pulmonary embolism I26.99 Acute blood loss anemia D62 Acute renal failure superimposed on stage 2 chronic kidney disease N17.9; N18.2
--- NOTE | 2020-04-23 04:30 | CTR_ITS ---
PROCEDURE INFORMATION: Exam: CT Angiography Abdomen and Pelvis With Contrast Exam date and time: 04/23/2020 4:31 AM Age: 75 years old Clinical indication: Abdominal pain; Generalized; Prior surgery; Surgery type: Gb; Additional info: Abdominal pain, signs of mesenteric ischemia TECHNIQUE: Imaging protocol: Computed tomographic angiography of the abdomen and pelvis with intravenous contrast material. 3D rendering: MIP and/or 3D reconstructed images were created by the technologist. Radiation optimization: All CT scans at this facility use at least one of these dose optimization techniques: automated exposure control; mA and/or kV adjustment per patient size (includes targeted exams where dose is matched to clinical indication); or iterative reconstruction. Contrast material: VISI; Contrast volume: 95 ml; Contrast route: 16G; COMPARISON: CT abdomen pelvis w con* [id number] 04/23/2020 2:57 AM RADIATION DOSE METRICS: Total DLP: 1339.43 mGy-cm FINDINGS: Tubes, catheters and devices: NG tube is identified in the stomach. Mackey catheter is identified in the bladder. Aorta: Diffuse atherosclerotic changes of the aorta and its associated branches including the superior mesenteric artery predominantly at its origin. Celiac trunk and mesenteric arteries: The SMA otherwise appears patent. Renal arteries: There is dense calcification at the origin of the right renal artery. Right iliac arteries: No occlusion or significant stenosis. Left iliac arteries: No occlusion or significant stenosis. Liver: No mass. There is portal venous gas. Gallbladder and bile ducts: Status post cholecystectomy. Pancreas: Unremarkable. No mass. No ductal dilation. Spleen: Unremarkable. No splenomegaly. Adrenals: Unremarkable. No mass. Kidneys and ureters: Unremarkable. No solid mass. No hydronephrosis. Stomach and bowel: Diffuse small bowel dilation with a suspect transition point in the right lower quadrant slightly increased compared to prior exam. No small bowel pneumatosis. No significant small bowel wall thickening or areas of abnormal enhancement. Again redemonstration of suspect gastric pneumatosis allowing for limitations due to minimal gastric distention. Colonic diverticulosis without findings of diverticulitis. Appendix: The appendix is not identified. Intraperitoneal space: No free air. Lymph nodes: Unremarkable. No enlarged lymph nodes. Vasculature: There is mesenteric venous gas. Bladder: Unremarkable. No mass. Reproductive: Prostate gland is enlarged. Bones/joints: No acute fracture. No dislocation. Soft tissues: Unremarkable. CT/CT angio abdomen pelvis [id number] IMPRESSION: 1. Diffuse atherosclerotic changes of the aorta and its associated branches including the superior mesenteric artery predominantly at its origin. The SMA otherwise appears patent. 2. Redemonstration of portal venous and mesenteric gas as previously noted. 3. Distal small bowel obstruction with increased bowel distention compared to prior exam. No small bowel pneumatosis. 4. Again redemonstration of suspect gastric pneumatosis allowing for limitations due to minimal gastric distention. Radiation Dose CTDIVOL = (mGy): DLP = 1339.43 (mGy-cm)
[2020-04-23] MEDS: levofloxacin-dextrose 5 % 750 MG/150 ML PREMIX 150 MG IV (04:39)
[2020-04-23] MEDS: metroNIDAZOLE IV 500 MG/100 ML PREMIX 100 MG IV (04:39)
[2020-04-23] MEDS: sodium chloride 0.9% 1,000 ML 150 ML IV (04:40)
[2020-04-23 04:49] LABS: Bacteria Urine TRACE; Bilirubin Urine Neg (NEGATIVE); Blood Urine Neg (Negative); Glucose Urine UA 1+ (Normal); Hyaline Casts Urine 0-4; Ketones Urine Negative (Negative); Leukocyte Esterase Urine Negative (Negative); Nitrate Urine Negative (Negative); Protein Urine 1+ (Negative); RBC Urine RARE /hpf (0-2); Specific Gravity, Urine 1.015 (1.005-1.030); Squamous Epithelial Cell Urine RARE (0-5); Urine Appearance SL Hazy (CLEAR); Urine Color Yellow (Yellow); Urobilinogen Urine 1 mg/dL (Negative); WBC Urine 0-4 /hpf (0-5); pH Urine 5 (5-7)
[2020-04-23 05:53] LABS: Lactic Acid level (Lactate) 2.4 mmol/L (0.5-2.2)
[2020-04-23 06:06] LABS: Troponin 5 2HR 19.99 ng/L (0-15)
[2020-04-23 06:08] LABS: Troponin 5 2HR Delta -7.01 ABS# (0-10)
--- NOTE | 2020-04-23 06:27 | PC.NURSE ---
ER MD and Hospitalist both counseled with pt concerning risk of an additional dose of contrast for a CT-A. pt states that he understood and would rather be alive then .
--- NOTE | 2020-04-23 07:53 | ECG_ITS ---
Measurements Intervals [place] Rate: 81 P: 42 MA: 185 QRS: -3 QRSD: 119 T: 84 QT: 377 QTc: 438 SINUS RHYTHM WITH OCCASIONAL VENTRICULAR PREMATURE COMPLEXES LEFT VENTRICULAR HYPERTROPHY AND ST-T CHANGE [VOLTAGE CRITERIA PLUS ST/T ABNORMALITY] INFERIOR MYOCARDIAL INFARCTION , PROBABLY OLD [40+ ms Q WAVE AND/OR ST/T ABNORMALITY IN II/aVF] PROBABLE ANTEROLATERAL MYOCARDIAL INFARCTION , OF INDETERMINATE AGE [35 ms Q WAVE IN I/aVL/V3-V6] Compared to ECG 12/10/2019 03:25:39 Ventricular premature complex(es) now present Left ventricular hypertrophy now present ST (T wave) deviation now present Myocardial infarct finding still present Electronically Signed On 04-23-2020 21:08:52 CDT by Carolina Fang M.D. [email or web address]
[2020-04-23 08:39] LABS: Troponin 5 6HR 17.69 ng/L (0-15)
[2020-04-23 08:40] LABS: Troponin 5 6HR Delta -9.31 ng/L (0-12)
[2020-04-23 09:47] LABS: Basophils # 0.1 10^3/uL (0.0-0.1); Basophils % 0.3 %; Hematocrit 37.2 % (42.0-52.0); Hemoglobin 10.5 g/dL (11.7-16.6); Lymphocytes # 1.2 10^3/uL (0.8-4.8); Lymphocytes % 6.2 %; Mean Corpuscular HGB Conc 28.2 g/dL (30.0-36.0); Mean Corpuscular Hemoglobin 20.7 pg (28.0-34.0); Mean Corpuscular Volume 73.4 fL (80-94); Monocytes # 1.3 10^3/uL (0.2-0.9); Monocytes % 6.4 %; Neutrophils # 17.1 10^3/uL (1.8-7.7); Neutrophils % 86.5 %; Nucleated Red Blood Cells % 0 %; Platelet Count 448 10^3/cmm (130-400); Red Blood Count 5.07 10^6/uL (4.1-5.3); Red Cell Distribution Width 19.7 % (12.1-15.1); White Blood Count 19.8 10^3/uL (4.0-10.0)
--- NOTE | 2020-04-23 16:15 | PM.TDS ---
Transfer Summary Providers Date of Discharge: 04/23/20 Attending Provider at Transfer: Terry Waterman MD Primary Care Provider: Jorge Beasley Anticipated Date of Transfer: Anticipated date of transfer: 04/23/20 Receiving Facility & Provider: Receiving Provider: [] Receiving facility: [] Diagnoses at Discharge Discharge Diagnosis (1) Ischemic bowel disease: Status: Acute (2) Acute GI bleeding: Status: Acute (3) Small bowel obstruction: Status: Acute (4) Hypothyroidism: Status: Acute (5) Systolic congestive heart failure: Status: Acute Qualifiers: Heart failure chronicity: chronic Qualified Code(s): I50.22 - Chronic systolic (congestive) heart failure (6) Pulmonary embolism: Status: Acute (7) Acute blood loss anemia: Status: Acute (8) Acute renal failure superimposed on stage 2 chronic kidney disease: Status: Acute Reason for Visit Reason for Visit: SYNCOPAL EPISODE / GI BLEED Hospital Course Discharge Summary: This is a 75-year-old male with history of CAD 100% occlusion of RCA, medically managed, 3 L oxygen mini COPD, heart failure with improved ejection fraction, Eliquis on PE, who presented to [facility] due to complaints of coffee-ground emesis and melanotic stools. Patient was going to be potentially admitted for small bowel obstruction and ischemic colitis and/or mesenteric ischemia, CT scan of the abdomen showed with IV contrast portal venous and mesenteric gas, distal small bowel obstruction with increased bowel distention, gastric pneumatosis; patient was kept n.p.o., received fluid IV hydration in the ER, NG tube had 700 cc of ground glass content, he received a unit of blood, surgery was consulted. Patient waited for a ICU bed, but no ICU beds were available, given his critical status, thus patient was transferred to [facility] due to lack of ICU beds at [facility]. Physical Exam Const: COMMON NORMALS: no acute distress and patient oriented x3 HENMT: COMMON NORMALS: normocephalic HEAD & SCALP: normocephalic Neck/C-Spine: COMMON NORMALS: no JVD Resp: COMMON NORMALS: normal respiratory effort, No retractions, No use of accessory muscles and clear to auscultation bilaterally AUSCULTATION: clear to auscultation bilaterally Cardio: COMMON NORMALS: no JVD, regular rate, regular rhythm, S1 normal heart sound present and S2 normal heart sound present RATE: regular rate RHYTHM: regular rhythm HEART SOUNDS: S1 normal heart sound present and S2 normal heart sound present GI: INSPECTION: Yes abdominal distension AUSCULTATION: Yes Hypoactive bowel sounds present PALPATION: Yes Tenderness to palpation present (GI), No Guarding due to palpation present (GI) and No Rigid due to palpation PERCUSSION: tympanic to percussion Extremity: COMMON NORMALS: capillary refill normal, no clubbing, cyanosis or edema, no calf tenderness and no pedal edema Neuro: COMMON NORMALS: patient oriented x3 Psych: COMMON NORMALS: mental status grossly normal Urinary Catheter Management^: Mackey: Cath Placed During This Visit: yes Urinary Catheter Date of Insertion: 04/23/20 Urinary Catheter Time of Insertion: 04:30 TS Data Data Completed and Pending: Completed Studies During Hospitalization Category Date Time Status CT abdomen pelvis w con* [id number] Stat Cat Scan 04/23/20 02:[address] angio abdomen pelvis [id number] Stat Cat Scan 04/23/20 04:[address] head wo con* [id number] Stat Cat Scan 04/23/20 02:01 Completed XR chest 1V dhiraj ble [id number] Stat Exams 04/23/20 03:48 Completed Labs from last 24 hours 04/23/20 04/23/20 04/23/20 09:40 08:13 05:35 WBC 19.8 H RBC 5.07 Hgb 10.5 L Hct 37.2 L MCV 73.4 L MCH 20.7 L MCHC 28.2 L RDW 19.7 H Plt Count 448 H MPV 10.0 Neut % (Auto) 86.5 Lymph % (Auto) 6.2 Weber % (Auto) 6.4 Eos % (Auto) 0.0 Baso % (Auto) 0.3 Neut # (Auto) 17.1 H Lymph # (Auto) 1.2 Weber # (Auto) 1.3 H Eos # (Auto) 0.0 Baso # (Auto) 0.1 Nucleated RBC % (a uto) 0 Nucleated RBCs # 0.0 Sodium Potassium Chloride Carbon Dioxide Anion Gap BUN Creatinine Glucose Calculated Osmolal ity Lactic Acid Lactic Acid (Sepsi s) Calcium Magnesium Total Bilirubin AST ALT Alkaline Phosphata se Troponin I 6 Hour 17.69 H Troponin I Hi Sens Del -9.31 L Troponin T Baselin e Troponin T 120 Min [place] 19.99 H Delta Troponin T -7.01 L Total Protein Albumin Globulin Lipase Urine Color Urine Appearance Urine pH Ur Specific Gravit y Urine Protein Urine Glucose (UA) Urine Ketones Urine Blood Urine Nitrate Urine Bilirubin Urine Urobilinogen Ur Leukocyte Ruba ase Urine RBC Urine WBC Ur Squamous Epith Cells Urine Bacteria Hyaline Casts H. pylori IgG Anti body Blood Type Rho(D) Type Antibody Screen Crossmatch 04/23/20 04/23/20 04/23/20 05:28 04:30 02:15 WBC RBC Hgb Hct MCV MCH MCHC RDW Plt Count MPV Neut % (Auto) Lymph % (Auto) Weber % (Auto) Eos % (Auto) Baso % (Auto) Neut # (Auto) Lymph # (Auto) Weber # (Auto) Eos # (Auto) Baso # (Auto) Nucleated RBC % (a uto) Nucleated RBCs # Sodium Potassium Chloride Carbon Dioxide Anion Gap BUN Creatinine Glucose Calculated Osmolal ity Lactic Acid Lactic Acid (Sepsi s) 2.4 H Calcium Magnesium Total Bilirubin AST ALT Alkaline Phosphata se Troponin I 6 Hour Troponin I Hi Sens Del Troponin T Baselin e Troponin T 120 Min [place] Delta Troponin T Total Protein Albumin Globulin Lipase Urine Color Yellow Urine Appearance Sl hazy Urine pH 5 Ur Specific Gravit y 1.015 Urine Protein 1+ H Urine Glucose (UA) 1+ Urine Ketones Negative Urine Blood Neg Urine Nitrate Negative Urine Bilirubin Neg Urine Urobilinogen 1 H Ur Leukocyte Ruba ase Negative Urine RBC Rare Urine WBC 0-4 H Ur Squamous Epith Cells Rare Urine Bacteria Trace Hyaline Casts 0-4 H H. pylori IgG Anti body Blood Type A Positive Rho(D) Type Positive Antibody Screen Negative Crossmatch See Detail 04/23/20 04/23/20 04/23/20 02:13 02:13 02:13 WBC RBC Hgb Hct MCV MCH MCHC RDW Plt Count MPV Neut % (Auto) Lymph % (Auto) Weber % (Auto) Eos % (Auto) Baso % (Auto) Neut # (Auto) Lymph # (Auto) Weber # (Auto) Eos # (Auto) Baso # (Auto) Nucleated RBC % (a uto) Nucleated RBCs # Sodium 135 L Potassium 4.7 Chloride 103 Carbon Dioxide 19 L Anion Gap 17.7 BUN 23 Creatinine 1.7 H Glucose 197 H Calculated Osmolal ity 282 L Lactic Acid 3.5 H Lactic Acid (Sepsi s) Calcium 9.4 Magnesium 2.1 Total Bilirubin 0.7 AST 19 ALT 23 Alkaline Phosphata se 84 Troponin I 6 Hour Troponin I Hi Sens Del Troponin T Baselin e 27 H Troponin T 120 Min [place] Delta Troponin T Total Protein 7.8 Albumin 4.3 Globulin 3.5 Lipase 23 Urine Color Urine Appearance Urine pH Ur Specific Gravit y Urine Protein Urine Glucose (UA) Urine Ketones Urine Blood Urine Nitrate Urine Bilirubin Urine Urobilinogen Ur Leukocyte Ruba ase Urine RBC Urine WBC Ur Squamous Epith Cells Urine Bacteria Hyaline Casts H. pylori IgG Anti body Blood Type Rho(D) Type Antibody Screen Crossmatch 04/23/20 04/23/20 02:13 02:13 WBC 13.0 H RBC 4.90 Hgb 9.4 L Hct 34.9 L MCV 71.2 L MCH 19.2 L MCHC 26.9 L RDW 17.2 H Plt Count 475 H MPV 10.3 Neut % (Auto) 76.0 Lymph % (Auto) 14.6 Weber % (Auto) 7.2 Eos % (Auto) 1.2 Baso % (Auto) 0.5 Neut # (Auto) 9.9 H Lymph # (Auto) 1.9 Weber # (Auto) 0.9 Eos # (Auto) 0.2 Baso # (Auto) 0.1 Nucleated RBC % (a uto) 0.2 Nucleated RBCs # 0.0 Sodium Potassium Chloride Carbon Dioxide Anion Gap BUN Creatinine Glucose Calculated Osmolal ity Lactic Acid Lactic Acid (Sepsi s) Calcium Magnesium Total Bilirubin AST ALT Alkaline Phosphata se Troponin I 6 Hour Troponin I Hi Sens Del Troponin T Baselin e Troponin T 120 Min [place] Delta Troponin T Total Protein Albumin Globulin Lipase Urine Color Urine Appearance Urine pH Ur Specific Gravit y Urine Protein Urine Glucose (UA) Urine Ketones Urine Blood Urine Nitrate Urine Bilirubin Urine Urobilinogen Ur Leukocyte Ruba ase Urine RBC Urine WBC Ur Squamous Epith Cells Urine Bacteria Hyaline Casts H. pylori IgG Anti body Negative Blood Type Rho(D) Type Antibody Screen Crossmatch Vitals: Last Vital Signs Temp 98.4 F 04/23/20 10:42 Pulse 119 H 04/23/20 10:42 Resp 18 04/23/20 10:42 BP 181/85 04/23/20 10:42 Pulse Ox 96 04/23/20 10:42 TS Medications Medications Home Medications Fleet Enema 118 ml LA DAILY PRN 12/11/19 [History Confirmed 04/23/20] Lactobacillus acidophilus See Rx Instructions .ROUTE .COMPLEX 12/11/19 [History Confirmed 04/23/20] Milk of Magnesia 30 ml PO DAILY PRN 12/11/19 [History Confirmed 04/23/20] Protonix 40 mg PO DAILY 12/11/19 [History Confirmed 04/23/20] amlodipine 10 mg PO DAILY #0 tab 12/11/19 [Rx Confirmed 04/23/20] apixaban [Eliquis] 5 mg PO BID #0 tab 12/11/19 [Rx Confirmed 04/23/20] aspirin 81 mg PO DAILY #0 tab 12/11/19 [Rx Confirmed 04/23/20] atorvastatin 40 mg PO BEDTIME #0 tab 12/11/19 [Rx Confirmed 04/23/20] bisacodyl 10 mg LA DAILY PRN 12/11/19 [History Confirmed 04/23/20] hydroxyzine HCl 20 mg PO BID PRN #0 tab 12/11/19 [Rx Confirmed 04/23/20] ipratropium-albuterol 3 ml INHALATION Q6H.RESPIRATORY PRN #0 ml 12/11/19 [Rx Confirmed 04/23/20] levothyroxine 125 mcg PO DAILY #0 tab 12/11/19 [Rx Confirmed 04/23/20] lisinopril 40 mg PO DAILY #0 tab 12/11/19 [Rx Confirmed 04/23/20] tramadol 50 mg PO Q6H PRN 12/11/19 [History Confirmed 04/23/20] alprazolam 0.5 mg PO DAILY PRN 01/27/20 [History Confirmed 04/23/20] budesonide-formoterol [Symbicort] 2 puff INHALATION BID 01/27/20 [History Confirmed 04/23/20] guaifenesin [Robafen] 200 mg PO Q4H PRN 01/27/20 [History Confirmed 04/23/20] isosorbide mononitrate 30 mg PO DAILY 01/27/20 [History Confirmed 04/23/20] tizanidine 4 mg PO Q8H 01/27/20 [History Confirmed 04/23/20] acetaminophen 650 mg PO Q4H PRN 04/23/20 [History Confirmed 04/23/20] alprazolam [Xanax] 1 mg PO BEDTIME 04/23/20 [History Confirmed 04/23/20] buspirone 10 mg PO TID 04/23/20 [History Confirmed 04/23/20] glipizide 2.5 mg PO BID 04/23/20 [History Confirmed 04/23/20] guaifenesin [Mucinex] 600 mg PO BID 04/23/20 [History Confirmed 04/23/20] metformin 500 mg PO DAILY 04/23/20 [History Confirmed 04/23/20] metoprolol succinate [Toprol XL] 12.5 mg PO DAILY 04/23/20 [History Confirmed 04/23/20] ondansetron HCl [Zofran] 4 mg PO Q6H PRN 04/23/20 [History Confirmed 04/23/20] sodium chloride [[place] Nasal] 1 spray INTRANASAL Q6H PRN 04/23/20 [History Confirmed 04/23/20] sodium chloride [[place] Nasal] 1 spray INTRANASAL BID 04/23/20 [History Confirmed 04/23/20] trazodone 75 mg PO BEDTIME 04/23/20 [History Confirmed 04/23/20] venlafaxine 150 mg PO DAILY 04/23/20 [History Confirmed 04/23/20] Discharge Plan Discharge Patient Disposition: Admitted As Inpatient Clinical Impression: Acute GI bleeding Condition: Stable Referrals: Jorge Beasley [Primary Care Provider] - Discharge Date/Time: 04/23/20 10:44 Transfer Attestations Time Spent in Transfer Care*: less than 30 min Quality Metrics Clinical Quality Measures: During this hospital stay, did patient experience: None Coding Level of Care Code 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
== END 2020-04-23 10:44 | disposition admitted as inpatient to this hospital (09) ==
PROVIDERS: Family Medicine; Emergency Provider Emergency Medicine; Family Provider Internal Medicine; PCP Internal Medicine; Visit Provider Family Medicine
DX: K92.2 Gastrointestinal hemorrhage, unspecified (principal); I12.9 Hypertensive chronic kidney disease with stage 1 through stage 4 chronic kidney disease, or unspecified chronic kidney disease; N18.2 Chronic kidney disease, stage 2 (mild); J44.9 Chronic obstructive pulmonary disease, unspecified; I25.10 Atherosclerotic heart disease of native coronary artery without angina pectoris; Z86.73 Personal history of transient ischemic attack (TIA), and cerebral infarction without residual deficits; I13.0 Hypertensive heart and chronic kidney disease with heart failure and stage 1 through stage 4 chronic kidney disease, or unspecified chronic kidney disease; I50.20 Unspecified systolic (congestive) heart failure; Z87.891 Personal history of nicotine dependence
CPT/HCPCS: 12345; 36415; 36430; 51702; 70450; 71045; 74174; 74177; 80053; 81001; 83605; 83690; 83735; 84484; 85025; 86677; 86850; 86900; 86920; 87493; 93005; 96360; 96361; 96365; 96366; 96367; 96368; 96375; 96376; 99285; C9113; J1956; J2405; J7030; J7050; P9016; Q9967; S0030

== ENCOUNTER 2021-04-01 08:29 | Outpatient (CLI) | payer MEDICARE, MEDICAID, SELFPAY ==
--- NOTE | 2021-04-01 08:37 | CT_ITS ---
WS: [id number] CT scan of the neck. Additional two-dimensional coronal and sagittal reconstruction was performed. Clinical Data: LOCALIZED SWELLING, MASS AND LUMP NECK Comparison: None. DLP: 1383.[address] scans at [facility] use at least one of these dose optimization techniques: automat ed exposure control; mA and/or kV adjustment per patient size (includes targeted exams where dose is matched to clinical indication); or iterative reconstruction. Findings: There is a probable sebaceous cyst on the left side of the neck at the site of the BB measuring 1.5 c m. No lymphadenopathy is noted. The salivary glands are unremarkable. There is no prevertebral soft tiss ue swelling. The larynx is symmetric. The thyroid gland shows normal enhancement. The floor of the mo uth and parapharyngeal spaces are normal. The oral cavity is unremarkable. The carotid arteries bifurcate normally. There are clips adjacent to the right common carotid bifurca tion from carotid surgery. There is calcification at the left carotid bifurcation. The cervical spine shows osteoarthritis and degenerative disc narrowing. There is an epidural stimulator ending in the upper thoracic epidural space.. The lung apices show chronic changes of emphysema.. The portions of t he intracranial circulation which are seen demonstrate no abnormalities. No erosion of the skull or s kull base is seen. CT/CT neck w con* [id number] Impression: 1. Probable sebaceous cyst in the left side of the neck measuring 1.5 cm seen b est on axial image 62 of 134. 2. Right carotid surgery.
[2021-04-01] MEDS: iohexol 300 mg/mL 100 mL Btl IV (09:03)
== END 2021-04-01 08:30 | disposition home or self-care (01) ==
PROVIDERS: PCP Family Medicine; Visit Provider Otolaryngology
DX: R22.1 Localized swelling, mass and lump, neck (principal)
CPT/HCPCS: 70491; Q9967

== ENCOUNTER 2021-06-17 10:03 | Outpatient (CLI) | payer MEDICARE, MEDICAID, SELFPAY ==
--- NOTE | 2021-06-17 10:13 | CT_ITS ---
WS: [id number] CT LUMBAR SPINE, noncontrast. HISTORY: PAIN/OTHER REDUCED MOBILITY TECHNIQUE: Contiguous 2.5 mm axial imaging are performed. Sagittal and coronal reformats are submitte d and reviewed. All CT scans at [facility] use at least one of these dose optimization te chniques: automated exposure control; mA and/or kV adjustment per patient size (includes targeted exa ms where dose is matched to clinical indication); or iterative reconstruction. IV contrast: None DLP: 2144.83 mGy.cm COMPARISON: None available. Mild chronic anterior wedging of L1. L2 and L3 retrolisthesis by 3 mm. Mild disc space narrowing and desiccation throughout the lumbar spine and endplate osteophytes. No pars defects or acute fractures. L1-2: Mild facet arthritis. No stenosis. L2-3: Mild osteophytic ridging and annular disc bulging. Annular disc bulging is asymmetric. Mild enc roachment upon the ventral thecal sac. Mild central and bilateral subarticular stenosis. Slightly gre ater subarticular stenosis on the LEFT. L3-4: Diffuse annular disc bulging and osteophytic ridging. Disc encroaching upon the ventral thecal sac. Osteophyte extends into the subarticular recess on the RIGHT. Moderate to severe RIGHT foraminal stenosis with mild central and LEFT foraminal stenosis. L4-5: Diffuse annular disc bulging and osteophytic ridging. Advanced facet joint arthritis greatest o n the RIGHT. Degenerative changes are causing a moderate central, bilateral lateral recess and subart icular stenosis. Moderate bilateral foraminal stenosis. L5-S1: Mild annular disc bulging and facet joint arthritis. Paracentral disc protrusion on the LEFT w ith mild contact on the LEFT S1 nerve root but no displacement. Moderate LEFT foraminal stenosis. There is heavy calcification within the abdominal aorta and extending into the mesenteric arteries. N o aneurysm. Heavy calcification continues into the iliac arteries. Bilateral degenerative disease in the SI joints. No sacral fracture identified. CT/CT lumbar spine wo con* [id number] IMPRESSION: 1. Moderate degenerative changes and spondylosis throughout the lumbar spine w ith a stable L1 mild compression deformity. 2. Moderate to severe RIGHT foraminal stenosis at L3-4 due to osteophyte and d isc disease and facet arthritis. Mild central and LEFT foraminal stenosis at L3 -4. 3. Moderate bilateral foraminal stenosis at L4-5 and moderate on the LEFT at L 5-S1. 4. Small LEFT paracentral disc protrusion contacts the LEFT S1 nerve root with no displacement. 5. Moderate central, bilateral lateral recess and subarticular recess stenosis at L4-5. 6. Mild central and bilateral subarticular recess stenosis at L2-3.
--- NOTE | 2021-06-17 10:13 | CT_ITS ---
WS: [id number] CT THORACIC SPINE HISTORY: PAIN/OTHER REDUCED MOBILITY TECHNIQUE: Contiguous 2.5 mm axial images are reviewed to thoracic spine. Images are reformatted in s agittal and coronal planes. All CT scans at [facility] use at least one of these dose opt imization techniques: automated exposure control; mA and/or kV adjustment per patient size (includes targeted exams where dose is matched to clinical indication); or iterative reconstruction. DLP: 2320.13 mGy.cm COMPARISON: None available. Thoracolumbar scoliosis is mild. Very slight straightening of the normal kyphosis. Dorsal column stim ulator electrodes noted along the ventral thecal sac at the T3-T5 levels and posterior at the T7-T9 l evels. Degenerative disc disease and endplate osteophytes throughout the thoracic spine. Very slight anterior wedging of T8. No acute fractures. T1-2: Moderate RIGHT and mild LEFT foraminal stenosis. T2-3: Moderate RIGHT and mild LEFT foraminal stenosis. T3-4: Mild bilateral foraminal stenosis. T4-5: Mild bilateral foraminal stenosis. T5-6: Normal. T6-7: Normal. T7-8: Osteophyte along the RIGHT lateral thecal sac extends from the vertebral bodies causing slight contact on the thecal sac but no stenosis. T8-9: Normal. T9-10: Normal. T10-11: Mild foraminal stenosis. T11-12: Normal. Moderate atherosclerotic plaque throughout the aorta. Dependent changes in the visualized lungs. CT/CT thoracic spin wo con* [id number] IMPRESSION: 1. No acute thoracic spine fracture. 2. Moderate degenerative spondylitic changes throughout the thoracic spine.
== END 2021-06-17 10:04 | disposition home or self-care (01) ==
PROVIDERS: PCP Family Medicine; Visit Provider Nurse Practitioner Family
DX: Z74.09 Other reduced mobility (principal); M48.061 Spinal stenosis, lumbar region without neurogenic claudication; M53.3 Sacrococcygeal disorders, not elsewhere classified; M48.07 Spinal stenosis, lumbosacral region; M25.78 Osteophyte, vertebrae; M51.36 Other intervertebral disc degeneration, lumbar region; M47.816 Spondylosis without myelopathy or radiculopathy, lumbar region
CPT/HCPCS: 72128; 72131

== ENCOUNTER 2022-02-02 08:42 | Outpatient (CLI) | payer MEDICARE, MEDICAID, SELFPAY ==
--- NOTE | 2022-02-02 09:27 | CT_ITS ---
WS: [id number] CT HEAD NONCONTRAST HISTORY: PARANOIA, HALLUCINATIONS TECHNIQUE: Contiguous axial imaging performed through the brain in 2.5 mm imaging. Bone and soft tiss ue windows. Sagittal and coronal reformats reviewed. All CT scans at [facility] use at least one of these dose optimization techniques: automated exposure control; mA and/or kV adjustment per pa tient size (includes targeted exams where dose is matched to clinical indication); or iterative recon struction. DLP: 1727.88 mGy.cm COMPARISON: 04/23/2020 No acute intracranial hemorrhage, midline shift or mass effect. Mild symmetric atrophy. Moderate low attenuation throughout the white matter from chronic ischemic di sease. More focal area of ischemia or infarct involving the posterior LEFT parietal lobe. Very simila r to the prior study. Prior lacunar infarct in the anterior limb of the external capsule on the LEFT. Ventricles: Normal size with no hydrocephalus. No inferior displacement of cerebellar tonsils. Paranasal sinuses: As visualized are clear. Mastoid air cells: Well pneumatized. Calvarium and scalp: Skull is intact with no soft tissue edema or swelling. CT/CT head wo con* [id number] IMPRESSION: 1. No acute intracranial hemorrhage or edema. 2. Atrophy with moderate chronic small vessel ischemic changes as described ab ove. Very minimal progression since 04/23/2022.
== END 2022-02-02 08:43 | disposition home or self-care (01) ==
LOC: RAD 08:43
PROVIDERS: PCP Family Medicine; Visit Provider Nurse Practitioner Family
DX: F22 Delusional disorders (principal); G31.9 Degenerative disease of nervous system, unspecified
CPT/HCPCS: 70450

== ENCOUNTER → 2022-07-05 14:13 | Outpatient (BNVA) | payer MEDICARE, MEDICAID, SELFPAY | PROVIDERS: PCP Family Medicine; Visit Provider Internal Medicine Cardiovascular Disease | DX: I13.0 Hypertensive heart and chronic kidney disease with heart failure and stage 1 through stage 4 chronic kidney disease, or unspecified chronic kidney disease (principal); N18.2 Chronic kidney disease, stage 2 (mild); Z87.891 Personal history of nicotine dependence; I50.22 Chronic systolic (congestive) heart failure; I27.82 Chronic pulmonary embolism; Z86.73 Personal history of transient ischemic attack (TIA), and cerebral infarction without residual deficits; Z79.01 Long term (current) use of anticoagulants | CPT/HCPCS: 99214 ==

== ENCOUNTER 2022-08-17 07:47 | Outpatient (CLI) | payer MEDICARE, MEDICAID, SELFPAY ==
[2022-08-17 08:23] VITALS: BMI 29.8
--- NOTE | 2022-08-17 08:30 | ECG_ITS ---
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 Interpretive Statements NAME OF STUDY: LEXISCAN SESTAMIBI STRESS TEST INDICATION: Chest Pain PROCEDURE: At the baseline, the blood pressure was 150/85 mm Hg, oxygen saturation 94% with a heart rate of 79 bpm. The electrocardiogram showed sinus rhythm with frequent PVC. LVH and ST-T wave changes. The Lexiscan was infused over a period of 20 seconds. A total of 0.4 milligrams of Lexiscan was infused. The stress phase was continued for a total of 5 minutes. Heart rate at the end of the stress phase was 87 bpm, oxygen saturation 95% with a blood pressure of 137/78 mmHg. The EKG at the peak infusion revealed sinus rhythm with no significant ST-T wave changes. Sestamibi was injected 20 seconds after the Lexiscan infusion. Blood pressure at the end of the recovery phase was 144/78 mmHg, oxygen saturation 94% with a heart rate of 88 beats per minute. CONCLUSION: 1. Nondiagnostic EKG changes with the LexiScan infusion due to baseline ST-T wave changes. 2. No LexiScan induced chest pain or cardiac arrhythmia. 3. Normal blood pressure and heart rate response. 4. Sestamibi/sestamibi perfusion scan pending; see separate report. Electronically Signed On 08-22-2022 11:47:44 CDT by Dominique Corona M.D. [id number]
--- NOTE | 2022-08-17 08:30 | NMCV_ITS ---
NM luz perf SPECT r/s* [id number] Agus Gillette Age: 77 Gender: M : 1945 Exam Date: 08/17/2022 09:06 Ordering Phys: Dominique Corona MD ([email or web address]) Technologist: GHAZAL Herman Exam Location: [facility] Indications: CHEST PAIN STRESS TEST Please see separate stress test report in [facility] for full findings IMAGE PROTOCOL Rest/Stress 1 Lexiscan Day Radiopharmaceutical Dose (mCi) Administration Site Administered by Rest: Tc-99m 10.7 IV GHAZAL Gruber Sestamibi Stress:Tc-99m 32.4 IV GHAZAL Herman Sestamimissy Rest: 17-Aug-2022 60 Discovery 630 Stress: 17-Aug-2022 30 Discovery 630 0.4mg Lexiscan. Supine position only as patient was unable to lay prone. SPECT RESULTS Technical Quality: Excellent Raw Data Analysis: Normal Image Corrections: No attenuation or motion correction applied Summed Stress Score: 14 Summed Rest Score: 16 Summed Difference Score: 0 PERFUSION FINDINGS Large sized perfusion abnormality of moderate to severe severity of basal to apical inferior, mid to apical inferolateral, mid inferoseptal and apical septal wall on rest and stress images. FUNCTIONAL RESULTS (calculated via Gated SPECT) Stress Image LV EF (%): 29 Stress EDV (mL):215 TID: 0.98 Stress ESV (mL):152 FUNCTIONAL FINDINGS: The left ventricle is dilated. Transient Ischemia Dilatation of 0.98. The left ventricular ejection fraction is severely reduced with a value of 29%. There is severe global hypokinesis more so in inferior wall. Markedly increased end-diastolic end-systolic volumes. IMPRESSIONS 1. Large sized fixed perfusion abnormality of moderate to severe severity of basal to apical inferior, mid to apical inferolateral, mid inferoseptal and apical septal gary. 2. This may be suggestive of myocardial infarction in right coronary artery/circumflex artery territory. 3. The left ventricular ejection fraction is severely reduced with a value of 29%. 3. There is severe global hypokinesis more so in inferior wall. 4. EKG portion of the study will be reported separately. 5. No coronary ischemia based on the study. Dominique Corona MD (Electronically Signed) Final Date: 22 August 2022 11:55 S
[2022-08-17] MEDS: regadenoson 0.4 Mg/5 ml Syringe IVP (09:41)
[2022-08-17 09:56] VITALS: BP 144/78; PULSE 86
== END 2022-08-17 07:48 | disposition home or self-care (01) ==
LOC: CDL 07:51
PROVIDERS: PCP Family Medicine; Visit Provider Internal Medicine Cardiovascular Disease
DX: R07.9 Chest pain, unspecified (principal)
CPT/HCPCS: 78452; 93017; A9500; J2785

== ENCOUNTER 2022-08-25 12:58 | Outpatient (CLI) | payer MEDICARE, MEDICAID, SELFPAY ==
[2022-08-25 13:20] LABS: Basophils # 0.1 10^3/uL (0.0-0.1); Basophils % 0.5 %; Eosinophils # 0.5 10^3/uL (0.0-0.8); Hematocrit 37.2 % (42.0-52.0); Hemoglobin 11.4 g/dL (11.7-16.6); Lymphocytes # 1.8 10^3/uL (0.8-4.8); Lymphocytes % 18.2 %; Mean Corpuscular HGB Conc 30.6 g/dL (30.0-36.0); Mean Corpuscular Hemoglobin 24.6 pg (28.0-34.0); Mean Corpuscular Volume 80.3 fl (80-94); Mean Platelet Volume 10.9 fL (7.4-10.4); Monocytes # 0.7 10^3/uL (0.2-0.9); Monocytes % 7.4 %; Neutrophils # 6.63 10^3/uL (1.8-7.7); Neutrophils % 68.4 %; Nucleated Red Blood Cells % 0 %; Platelet Count 287 10^3/cmm (130-400); Red Blood Count 4.63 10^6/uL (4.1-5.3); Red Cell Distribution Width 15.7 % (12.1-15.1); White Blood Count 9.7 10^3/uL (4.0-10.0)
[2022-08-25 13:45] LABS: Anion Gap 18.3 (5-19); Blood Urea Nitrogen 18 mg/dL (8-23); Calcium 9.7 mg/dL (8.5-10.5); Carbon Dioxide 25 mmol/L (22-29); Chloride 99 mmol/L (98-107); Glucose 139 mg/dL (65-115); NT Pro B Type Natriuretic Pept 1001 pg/mL (0-450); Osmolality Calculated 290 mOsm/kg (285-295); Potassium 4.3 mmol/L (3.5-5.1); Sodium 138 mmol/L (136-145)
== END 2022-08-25 12:59 | disposition home or self-care (01) ==
PROVIDERS: PCP Family Medicine; Visit Provider Nurse Practitioner Family
DX: J44.9 Chronic obstructive pulmonary disease, unspecified (principal)
CPT/HCPCS: 80048; 83880; 85025

== ENCOUNTER 2022-09-26 19:21 | Emergency (ER) | payer MEDICARE, MEDICAID, SELFPAY ==
[2022-09-26] VITALS (8 sets, daily range): BP systolic 78–162; BP diastolic 47–96; PULSE 71–86; RESP 15–21; TEMP 36.7; O2SAT 92–96; BMI 28.0
--- NOTE | 2022-09-26 19:23 | ED_ITS ---
HPI - Altered Mental Status General: Chief Complaint: Altered Mental Status Stated Complaint: AMS Time Seen by Provider: 09/26/22 19:22 Limitations: altered mental status History of Present Illness: Mr. Gillette is a 77-year-old gentleman with history of hypertension, hyperlipidemia, stroke, diabetes, CKD, systolic heart failure presenting to the emergency department due to altered mental status associated with hypotension. He has reportedly been at his baseline health however was noted to become increasingly somnolent and possible confused prior to coming in. Exact time of onset was unclear. Blood pressure noted to be low of unclear etiology. History otherwise limited by mental status change. Onset (ago): minute(s) Severity: moderate Review of Systems General: Reports: ROS unobtainable due to mental status PFSH ED PFSH: Medical History (Updated 10/07/22 @ 00:01 by ) Chronic kidney disease, stage II (mild) COPD (chronic obstructive pulmonary disease) Coronary artery disease CVA (cerebral vascular accident) GI bleed Hypertension Hypothyroidism Lower back pain Pulmonary embolism Spinal cord stimulator status Systolic congestive heart failure Last echocardiogram November 2019: LVEF 55%, grade 2 diastolic dysfunction. Surgical History H/O cardiac catheterization H/O shoulder surgery History of ankle surgery History of right-sided carotid endarterectomy Hx of cholecystectomy Family History Denies family history of Lung disease Hypertension Social History Smoking and tobacco status: former smoker Alcohol intake: never Household members: other Details: Resident of a custodial Physical Exam Const: COMMON NORMALS: alert GENERAL APPEARANCE: cooperative and well d eveloped HENMT: COMMON NORMALS: normocephalic and atraumatic HEAD & SCALP: normocephalic and atraumatic Eye: COMMON NORMALS: conjunctivae normal CONJUNCTIVA: Yes conjunctivae normal SCLERA: sclerae normal Neck/C-Spine: COMMON NORMALS: supple GENERAL: Yes trachea midline Resp: COMMON NORMALS: clear to auscultation bilaterally EFFORT & INSPECTION: Yes able to speak in complete sentences AUSCULTATION: clear to auscultation bilaterally Cardio: COMMON NORMALS: regular rate and regular rhythm RATE: regular rate RHYTHM: regular rhythm GI: COMMON NORMALS: Soft to palpation PALPATION: Yes Soft to palpation and No Tenderness to palpation present (GI) Extremity: GENERAL: Yes normal exam except as noted and No edema Neuro: COMMON NORMALS: moves all extremities SENSORIUM/ORIENTATION: Yes alert and Yes Orientation impaired Course Vital Signs: Vital signs: Vital Signs Temperature 98.1 F 09/26/22 19:24 Pulse Rate 83 09/27/22 00:04 Respiratory Rate 12 09/27/22 00:04 Blood Pressure 149/68 09/27/22 00:04 Pulse Oximetry 91 09/27/22 00:04 Oxygen Delivery Me thod 09/26/22 20:15 Oxygen Flow Rate 4 09/26/22 20:15 MDM - Altered Mental Status Medical Decision Making 77-year-old male status change. No focal findings on neurologic exam. Exam as above. Twelve-lead EKG shows sinus rhythm with nonspecific ST segment abnormalities. Labs with no leukocytosis, microcytic anemia. Mild evidence of dehydration on metabolic panel. 2-hour delta troponin is negative. TSH elevated with normal free T4. No UTI. Chest x-ray with minimal interstitial edema. Head CT with no acute finding to explain symptoms. Patient improved with IV fluids. Most likely etiology of patient's symptoms is mild overdiuresis and intravascular volume depletion. The results of ED evaluation were discussed with the patient including prescriptions and/or symptomatic cares (if applicable) including appropriate and responsible use, followup plan, and return precautions. The patient verbalized understanding and felt safe for discharge. Medical Records I reviewed the patient's medical records. Lab Data I reviewed the patient's lab results. 09/26/22 19:53 09/26/22 19:53 Radiology Impressions Chest X-Ray 09/26/22 19:31 IMPRESSION: 1. Cardiomegaly and minimal interstitial edema. 2. Spinal stimulators. Head CT 09/26/22 19:31 IMPRESSION: 1. Negative for intracranial hemorrhage or mass effect. 2. Moderate diffuse white matter disease likely reflecting chronic microvascular ischemic changes. 3. Left parietal region chronic appearing infarct similar to prior exam. Laboratory Results WBC 9.7 10^3/uL (4.0-10.0) 09/26/22 19:53 RBC 4.70 10^6/uL (4.1-5.3) 09/26/22 19:53 Hgb 11.0 g/dL (11.7-16.6) L 09/26/22 19:53 Hct 37.0 % (42.0-52.0) L 09/26/22 19:53 MCV 78.7 fl (80-94) L 09/26/22 19:53 MCH 23.4 pg (28.0-34.0) L 09/26/22 19:53 MCHC 29.7 g/dL (30.0-36.0) L 09/26/22 19:53 RDW 15.8 % (12.1-15.1) H 09/26/22 19:53 Plt Count 310 10^3/cmm (130-400) 09/26/22 19:53 MPV 9.9 fL (7.4-10.4) 09/26/22 19:53 Neut % (Auto) 70.8 % 09/26/22 19:53 Lymph % (Auto) 17.2 % 09/26/22 19:53 [place] % (Auto) 8.0 % 09/26/22 19:53 Eos % (Auto) 2.9 % 09/26/22 19:53 Baso % (Auto) 0.7 % 09/26/22 19:53 Neut # (Auto) 6.85 10^3/uL (1.8-7.7) 09/26/22 19:53 Lymph # (Auto) 1.7 10^3/uL (0.8-4.8) 09/26/22 19:53 [place] # (Auto) 0.8 10^3/uL (0.2-0.9) 09/26/22 19:53 Eos # (Auto) 0.3 10^3/uL (0.0-0.8) 09/26/22 19:53 Baso # (Auto) 0.1 10^3/uL (0.0-0.1) 09/26/22 19:53 Nucleated RBC % (auto) 0 % 09/26/22 19:53 Nucleated RBCs # 0.0 /100WBC 09/26/22 19:53 Sodium 130 mmol/L (136-145) L 09/26/22 19:53 Potassium 4.1 mmol/L (3.5-5.1) 09/26/22 19:53 Chloride 96 mmol/L (98-107) L 09/26/22 19:53 Carbon Dioxide 22 mmol/L (22-29) 09/26/22 19:53 Anion Gap 16.1 (5-19) 09/26/22 19:53 BUN 22 mg/dL (8-23) 09/26/22 19:53 Creatinine 1.2 mg/dL (0.7-1.2) 09/26/22 19:53 GFR Calculation Not Reportable 09/26/22 19:53 Glucose 86 mg/dL (65-115) 09/26/22 19:53 Calculated Osmolality 273 mOsm/kg (285-295) L 09/26/22 19:53 Lactic Acid 3.0 mmol/L (0.5-2.2) H 09/26/22 19:53 Lactic Acid (Sepsis) 2.0 mmol/L (0.5-2.2) 09/26/22 22:12 Calcium 8.6 mg/dL (8.5-10.5) 09/26/22 19:53 Total Bilirubin 1.3 mg/dL (0.15-1.2) H 09/26/22 19:53 AST 23 U/L (0-40) 09/26/22 19:53 ALT 20 U/L (0-41) 09/26/22 19:53 Alkaline Phosphatase 56 U/L (40-130) 09/26/22 19:53 Troponin T Baseline 47 ng/L (0-15) H 09/26/22 19:53 Troponin T 120 Minute 41.77 ng/L (0-15) H 09/26/22 21:15 Delta Troponin T -5.23 ABS# (0-10) L 09/26/22 21:15 C-Reactive Protein 3.0 mg/L (0.0-4.9) 09/26/22 19:53 NT-Pro-B Natriuret Pep 1879 pg/mL (0-450) H 09/26/22 19:53 Total Protein 7.4 g/dL (6.6-8.7) 09/26/22 19:53 Albumin 3.5 g/dL (3.5-5.2) 09/26/22 19:53 Globulin 3.9 g/dL (1.3-4.6) 09/26/22 19:53 Procalcitonin 0.08 ng/mL (0-0.5) 09/26/22 19:53 TSH 9.08 uIU/mL (0.27-4.20) H 09/26/22 19:53 Free T4 1.13 ng/dL (0.82-1.77) 09/26/22 21:15 Urine Color Yellow (Yellow) 09/26/22 20:40 Urine Appearance Clear (CLEAR) 09/26/22 20:40 Urine pH 6 (5-7) 09/26/22 20:40 Ur Specific Commerce 1.015 (1.005-1.030) 09/26/22 20:40 Urine Protein 1+ (Negative) H 09/26/22 20:40 Urine Glucose (UA) Norm (Normal) 09/26/22 20:40 Urine Ketones Negative (Negative) 09/26/22 20:40 Urine Blood Neg (Negative) 09/26/22 20:40 Urine Nitrate Negative (Negative) 09/26/22 20:40 Urine Bilirubin Neg (Negative) 09/26/22 20:40 Urine Urobilinogen Norm mg/dL (Negative) 09/26/22 20:40 Ur Leukocyte Esterase Negative (Negative) 09/26/22 20:40 Urine RBC None /hpf (0-2) 09/26/22 20:40 Urine WBC None /hpf (0-5) 09/26/22 20:40 Ur Squamous Epith Cells None /hpf (0-5) 09/26/22 20:40 Amorphous Sediment Not Reportable 09/26/22 20:40 Urine Bacteria None /hpf (NONE) 09/26/22 20:40 Hyaline Casts 0-4 /lpf H 09/26/22 20:40 Discharge Plan Discharge Patient Disposition: [facility] Clinical Impression: Dehydration, Syncope due to orthostatic hypotension Condition: Stable Discharge Orders: Discharge ED (Routine); Ordered 09/26/22 Ordered By: Chato Mars Referrals: Dheeraj Gonzalez Jr, MD [Primary Care Provider] - Discharge Diet: Cardiac Discharge Activity: Increase activity as tolerated Patient Instructions: Syncope (ED), Hypotension (ED) Activity Restrictions/Additional Instructions: Thank you for visiting the emergency department. You were seen and evaluate for low blood pressure. The exact cause of your low blood pressure is unclear however we are pleased that it improved with IV fluids. Most likely this was due to dehydration. Please continue your current medication regimen. Please have evaluation by a primary care physician this week. Additionally I will message case management for follow-up with cardiology. Return to the emergency department for recurrent symptoms or anything else that you are concerned about a feel needs emergency department evaluation. 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
--- NOTE | 2022-09-26 19:31 | CTR_ITS ---
PROCEDURE INFORMATION: Exam: CT Head Without Contrast Exam date and time: 09/26/2022 7:57 PM Age: 77 years old Clinical indication: Altered mental status/memory loss; Patient HX: Worsening lethargy per senior living. ; Additional info: AMS TECHNIQUE: Imaging protocol: Computed tomography of the head without contrast. Radiation optimization: All CT scans at this facility use at least one of these dose optimization techniques: automated exposure control; mA and/or kV adjustment per patient size (includes targeted exams where dose is matched to clinical indication); or iterative reconstruction. COMPARISON: CT head wo con* [id number] 02/02/2022 9:31 AM RADIATION DOSE METRICS: Total DLP (mGy-cm): 1224.48 FINDINGS: Brain: Moderate diffuse white matter disease likely reflecting chronic microvascular ischemic changes. Left parietal region chronic appearing infarct similar to prior exam. Cerebral ventricles: No ventriculomegaly. Paranasal sinuses: Visualized sinuses are unremarkable. No fluid levels. Mastoid air cells: Visualized mastoid air cells are well aerated. Bones/joints: Unremarkable. No acute fracture. Soft tissues: Unremarkable. CT/CT head wo con* [id number] IMPRESSION: 1. Negative for intracranial hemorrhage or mass effect. 2. Moderate diffuse white matter disease likely reflecting chronic microvascular ischemic changes. 3. Left parietal region chronic appearing infarct similar to prior exam.
--- NOTE | 2022-09-26 19:31 | XRR_ITS ---
PROCEDURE INFORMATION: Exam: XR Chest Exam date and time: 09/26/2022 8:43 PM Age: 77 years old Clinical indication: Other: AMS TECHNIQUE: Imaging protocol: Radiologic exam of the chest. Views: 1 view. COMPARISON: CR XR chest 1V portable [id number] 04/23/2020 4:07 AM FINDINGS: Tubes, catheters and devices: Spinal stimulators. Lungs: See Heart/Mediastinum finding. Pleural spaces: Unremarkable. No pleural effusion. No pneumothorax. Heart/Mediastinum: Cardiomegaly and minimal interstitial edema. Bones/joints: Unremarkable. XR/XR chest 1V portable [id number] IMPRESSION: 1. Cardiomegaly and minimal interstitial edema. 2. Spinal stimulators.
--- NOTE | 2022-09-26 19:32 | ECG_ITS ---
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 Measurements Intervals [place] Rate: 71 P: -10 [place]: 165 QRS: -3 QRSD: 126 T: 149 QT: 446 QTc: 487 Interpretive Statements SINUS RHYTHM LEFT VENTRICULAR HYPERTROPHY AND ST-T CHANGE [VOLTAGE CRITERIA PLUS ST/T ABNORMALITY] Diffuse nonspecific ST-T changes INFERIOR MYOCARDIAL INFARCTION , PROBABLY OLD [40+ ms Q WAVE AND/OR ST/T ABNORMALITY IN II/aVF] Compared to ECG 04/23/2020 05:46:14 No significant changes Electronically Signed On 09-27-2022 7:15:17 A AUXILIARY by Carolina Fang M.D. [id number]
[2022-09-26] MEDS: sodium chloride 0.9% 1,000 ML 999 ML IV (20:00)
[2022-09-26 20:09] LABS: Basophils # 0.1 10^3/uL (0.0-0.1); Basophils % 0.7 %; Eosinophils # 0.3 10^3/uL (0.0-0.8); Eosinophils % 2.9 %; Lymphocytes # 1.7 10^3/uL (0.8-4.8); Lymphocytes % 17.2 %; Mean Corpuscular HGB Conc 29.7 g/dL (30.0-36.0); Mean Corpuscular Hemoglobin 23.4 pg (28.0-34.0); Mean Corpuscular Volume 78.7 fl (80-94); Mean Platelet Volume 9.9 fL (7.4-10.4); Monocytes # 0.8 10^3/uL (0.2-0.9); Neutrophils # 6.85 10^3/uL (1.8-7.7); Neutrophils % 70.8 %; Nucleated Red Blood Cells % 0 %; Platelet Count 310 10^3/cmm (130-400); Red Cell Distribution Width 15.8 % (12.1-15.1); White Blood Count 9.7 10^3/uL (4.0-10.0)
[2022-09-26 20:22] LABS: Troponin(5th) Baseline 47 ng/L (0-15)
[2022-09-26 20:40] LABS: Alanine Aminotransferase 20 U/L (0-41); Albumin Level 3.5 g/dL (3.5-5.2); Alkaline Phosphatase 56 U/L (40-130); Anion Gap 16.1 (5-19); Aspartate Amino Transferase 23 U/L (0-40); Blood Urea Nitrogen 22 mg/dL (8-23); Calcium 8.6 mg/dL (8.5-10.5); Carbon Dioxide 22 mmol/L (22-29); Chloride 96 mmol/L (98-107); Globulin 3.9 g/dL (1.3-4.6); Glucose 86 mg/dL (65-115); Osmolality Calculated 273 mOsm/kg (285-295); Potassium 4.1 mmol/L (3.5-5.1); Sodium 130 mmol/L (136-145); Total Bilirubin 1.3 mg/dL (0.15-1.2); Total Protein 7.4 g/dL (6.6-8.7)
[2022-09-26 21:11] LABS: Reflex Lactate Order REFLEX LACTIC ORDERD
[2022-09-26 21:21] LABS: NT Pro B Type Natriuretic Pept 1879 pg/mL (0-450); Thyroid Stimulating Hormone 9.08 uIU/mL (0.27-4.20)
[2022-09-26 21:35] LABS: Add Urine Microscopic? YES; Bilirubin Urine Neg (Negative); Blood Urine Neg (Negative); Glucose Urine UA Norm (Normal); Ketones Urine Negative (Negative); Leukocyte Esterase Urine Negative (Negative); Nitrate Urine Negative (Negative); Protein Urine 1+ (Negative); Specific Gravity, Urine 1.015 (1.005-1.030); Urine Appearance Clear (CLEAR); Urine Color Yellow (Yellow); Urobilinogen Urine Norm (Negative); pH Urine 6 (5-7)
[2022-09-26 21:36] LABS: Add Urine Culture? No; Hyaline Casts Urine 0-4 /lpf
[2022-09-26 21:41] LABS: Procalcitonin 0.08 ng/mL (0-0.5)
--- NOTE | 2022-09-26 21:57 | ECG_ITS ---
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: : 1945 Requested By: Chato Mars Order Number: [id number] Reading MD: Rg Cheng Measurements Intervals [place] Rate: 68 P: -6 [place]: 179 QRS: 21 QRSD: 122 T: 29 QT: 435 QTc: 466 Interpretive Statements SINUS RHYTHM MODERATE INTRAVENTRICULAR CONDUCTION DELAY [110+ ms QRS DURATION] NONSPECIFIC ST & T-WAVE ABNORMALITY Compared to ECG 09/26/2022 19:54:06 Intraventricular conduction delay now present T-wave abnormality now present Left ventricular hypertrophy no longer present ST (T wave) deviation no longer present Myocardial infarct finding no longer present Electronically Signed On 09-27-2022 18:07:37 BAG SEALER by Rg Cheng [id number]
[2022-09-26 22:03] LABS: Troponin 5 2HR 41.77 ng/L (0-15)
[2022-09-26 22:05] LABS: Troponin 5 2HR Delta -5.23 ABS# (0-10)
[2022-09-26 22:15] LABS: Free T4 Free Thyroxine 1.13 ng/dL (0.82-1.77)
--- NOTE | 2022-09-26 23:06 | PC.NURSE ---
Report given to [facility] shelley
[2022-09-27 00:04] VITALS: BP 149/68; PULSE 83; RESP 12; O2SAT 91
--- NOTE | 2022-09-27 07:50 | PC.SOCIAL ---
Addendum entered by Dominga Vásquez 01/24/23 08:07: Patient had a follow up appointment scheduled with heart care - patient did attend appointment Addendum entered by Dominga Vásquez 11/02/22 13:27: Patient has a follow up appointment scheduled for , January 03, 2023 at 2:[address] Lyn at [facility]. Clinic will call patient with appointment information. Original Note: Cardiology Follow-Up Referral sent to cardiology for follow up. Clinic to contact patient with appt date/time.
== END 2022-09-27 01:50 ==
PROVIDERS: Emergency Provider Emergency Medicine; PCP Family Medicine
DX: E86.0 Dehydration (principal); R55 Syncope and collapse; I95.1 Orthostatic hypotension; I12.9 Hypertensive chronic kidney disease with stage 1 through stage 4 chronic kidney disease, or unspecified chronic kidney disease; N18.2 Chronic kidney disease, stage 2 (mild)
CPT/HCPCS: 36415; 70450; 71045; 80053; 81001; 83605; 83880; 84145; 84439; 84443; 84484; 85025; 86140; 87040; 93005; 96360; 99285; J7030

== ENCOUNTER 2022-09-29 11:51 | Outpatient (CLI) | payer MEDICARE, MEDICAID, SELFPAY ==
[2022-09-29 12:38] LABS: Anion Gap 18.2 (5-19); Blood Urea Nitrogen 14 mg/dL (8-23); Calcium 9.2 mg/dL (8.5-10.5); Carbon Dioxide 24 mmol/L (22-29); Chloride 100 mmol/L (98-107); Glucose 152 mg/dL (65-115); Osmolality Calculated 289 mOsm/kg (285-295); Potassium 4.2 mmol/L (3.5-5.1); Sodium 138 mmol/L (136-145)
== END 2022-09-29 11:52 | disposition home or self-care (01) ==
PROVIDERS: PCP Family Medicine; Visit Provider Nurse Practitioner Family
DX: D64.9 Anemia, unspecified (principal)
CPT/HCPCS: 80048

== ENCOUNTER 2022-09-29 19:56 | Emergency (ER) | payer MEDICARE, MEDICAID, SELFPAY ==
[2022-09-29 19:57] VITALS: BMI 31.3
--- NOTE | 2022-09-29 20:00 | XRR_ITS ---
PROCEDURE INFORMATION: Exam: XR Chest Exam date and time: 09/29/2022 9:18 PM Age: 77 years old Clinical indication: Pain; Angina pectoris and chest pressure; Prior surgery; Surgery date: 6+ months; Additional info: Cp TECHNIQUE: Imaging protocol: Radiologic exam of the chest. Views: 1 view. COMPARISON: CR (CHEST, ) 09/26/2022 8:43 PM FINDINGS: Tubes, catheters and devices: Stimulator leads projecting over the upper and midthoracic spine. Lungs: Chronic interstitial opacities in both lungs appear increased in the left base, but are accentuated by shallow inspiration. No consolidation. Emphysema. Pleural spaces: Unremarkable. No pleural effusion. No pneumothorax. Heart/Mediastinum: Borderline cardiomegaly. Diaphragm: Chronic mild elevation of the right diaphragm. Bones/joints: Unremarkable. XR/XR chest 1V portable [id number] IMPRESSION: Chronic interstitial changes in both lungs. Superimposed pulmonary edema or pneumonia in the left lung base is not excluded.
--- NOTE | 2022-09-29 20:00 | CTR_ITS ---
PROCEDURE INFORMATION: Exam: CT Head Without Contrast Exam date and time: 09/29/2022 8:10 PM Age: 77 years old Clinical indication: Altered mental status/memory loss; Confusion or disorientation; Patient HX: jail patient with lethargy and hypotension. ; Additional info: AMS TECHNIQUE: Imaging protocol: Computed tomography of the head without contrast. Radiation optimization: All CT scans at this facility use at least one of these dose optimization techniques: automated exposure control; mA and/or kV adjustment per patient size (includes targeted exams where dose is matched to clinical indication); or iterative reconstruction. COMPARISON: CT head wo con* [id number] 09/26/2022 7:57 PM RADIATION DOSE METRICS: Total DLP (mGy-cm): 1171.68 FINDINGS: Brain: Mild diffuse cortical volume loss. Moderate hypodensities in supratentorial periventricular and subcortical white matter, consistent with microangiopathy. No intracranial hemorrhage. Chronic small infarct in the left caudate head. Chronic encephalomalacia in the left temporal and parietal lobes. Cerebral ventricles: No ventriculomegaly. Paranasal sinuses: Visualized sinuses are unremarkable. No fluid levels. Mastoid air cells: Visualized mastoid air cells are well aerated. Orbital cavities: Prior cataract surgery. Bones/joints: Unremarkable. No acute fracture. Soft tissues: Unremarkable. Vasculature: No hyperdense artery. CT/CT head wo con* [id number] IMPRESSION: No acute intracranial findings.
[2022-09-29 20:01] VITALS: BP 99/56; PULSE 63; RESP 17; TEMP 37.2; O2SAT 92
--- NOTE | 2022-09-29 20:01 | ECG_ITS ---
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 Measurements Intervals [place] Rate: 64 P: -7 [place]: 174 QRS: 15 QRSD: 116 T: 180 QT: 462 QTc: 478 Interpretive Statements SINUS RHYTHM LEFT VENTRICULAR HYPERTROPHY AND ST-T CHANGE [VOLTAGE CRITERIA PLUS ST/T ABNORMALITY] INFERIOR MYOCARDIAL INFARCTION , PROBABLY OLD [40+ ms Q WAVE AND/OR ST/T ABNORMALITY IN II/aVF] Compared to ECG 09/26/2022 21:57:13 Left ventricular hypertrophy now present ST (T wave) deviation now present Myocardial infarct finding now present Intraventricular conduction delay no longer present T-wave abnormality no longer present Electronically Signed On 09-30-2022 6:23:39 BIOMASS BOILER OPERATOR by Miguel Coats M.D. [id number]
--- NOTE | 2022-09-29 20:02 | W.ED.GENADLT ---
HPI - General Adult General: Chief complaint: General Medical Stated complaint: AMS/CHEST PAIN Time Seen by Provider: 09/29/22 19:57 Source: EMS Mode of arrival: EMS Limitations: altered mental status History of Present Illness: 77-year-old male is here from [facility] complaining of confusion chest pain. Per EMS patient was having chest pain earlier this morning the 90s become confused along with hypotensive. Per EMS blood pressure in the 80s at 99/56 here. Patient here is lethargic he will wake he is able to tell me his name and where he lives no known fever no vomiting no diarrhea. Does have a history of dementia. Review of Systems General: Reports: ROS unobtainable due to mental status PFSH ED PFSH: Medical History (Updated 09/29/22 @ 21:56 by Michelle Langford MD) Chronic kidney disease, stage II (mild) COPD (chronic obstructive pulmonary disease) Coronary artery disease CVA (cerebral vascular accident) GI bleed Hypertension Hypothyroidism Lower back pain Pulmonary embolism Spinal cord stimulator status Systolic congestive heart failure Last echocardiogram November 2019: LVEF 55%, grade 2 diastolic dysfunction. Surgical History H/O cardiac catheterization H/O shoulder surgery History of ankle surgery History of right-sided carotid endarterectomy Hx of cholecystectomy Family History Denies family history of Lung disease Hypertension Social History Smoking and tobacco status: former smoker Alcohol intake: never Household members: other Details: Resident of a [facility] Physical Exam Const: COMMON NORMALS: negative for patient oriented x3 GENERAL APPEARANCE: lethargic and ill appearing ORIENTATION/CONSCIOUSNESS: Yes lethargic HENMT: COMMON NORMALS: normocephalic and atraumatic HEAD & SCALP: normocephalic and atraumatic Eye: COMMON NORMALS: Equal, round and reactive pupils present and EOMs intact bilaterally PUPIL: Yes Equal, round and reactive pupils present Neck/C-Spine: COMMON NORMALS: full ROM and supple Chest: COMMONS NORMALS: normal inspection of the chest and normal palpation of entire chest wall Resp: COMMON NORMALS: normal respiratory effort, No retractions, No use of accessory muscles and clear to auscultation bilaterally AUSCULTATION: clear to auscultation bilaterally Cardio: COMMON NORMALS: regular rate, regular rhythm and No murmurs present (Cardio) RATE: regular rate RHYTHM: regular rhythm GI: COMMON NORMALS: Normal to inspection, nondistended, normoactive bowel sounds present, Soft to palpation, non-tender and no masses PALPATION: Yes Soft to palpation Extremity: COMMON NORMALS: normal to inspection and full ROM Neuro: COMMON NORMALS: moves all extremities and no focal motor deficits; negative for patient oriented x3 SENSORIUM/ORIENTATION: Yes lethargic Psych: COMMON NORMALS: Normal thought process present and cooperative THOUGHT PROCESS: Normal thought process present Skin: COMMON NORMALS: no rashes or lesions noted and no wounds GENERAL SKIN EXAM: no rashes or lesions noted Course Vital Signs: Vital signs: Vital Signs Temperature 98.9 F 09/29/22 20:01 Pulse Rate 66 09/29/22 22:42 Respiratory Rate 15 09/29/22 22:42 Blood Pressure 126/72 09/29/22 22:42 Pulse Oximetry 96 09/29/22 22:42 Oxygen Delivery Me thod 09/29/22 22:05 Oxygen Flow Rate 2 09/29/22 22:05 [facility] - General Adult Medical Decision Making Patient presents here with initially confusion and some hypotensive his blood pressure is much improved here patient is now awake and alert and answering all my questions appropriately his daughter is here is at bedside as well. I spoke to both of them at length I recommended admission due to his confusion and his low blood pressure and his daughter both states that they would like him to [facility] back to the [facility] that he does not feel he needs to be admitted he would much rather be at the [facility] we will discharge him at his request. Lab Data 09/29/22 20:03 09/29/22 20:03 Radiology Impressions Chest X-Ray 09/29/22 20:00 IMPRESSION: Chronic interstitial changes in both lungs. Superimposed pulmonary edema or pneumonia in the left lung base is not excluded. Head CT 09/29/22 20:00 IMPRESSION: No acute intracranial findings. Laboratory Results WBC 7.2 10^3/uL (4.0-10.0) 09/29/22 20:03 RBC 4.47 10^6/uL (4.1-5.3) 09/29/22 20:03 Hgb 10.4 g/dL (11.7-16.6) L 09/29/22 20:03 Hct 35.7 % (42.0-52.0) L 09/29/22 20: MCV 79.9 fl (80-94) L 09/29/22 20:03 MCH 23.3 pg (28.0-34.0) L 09/29/22 20: MCHC 29.1 g/dL (30.0-36.0) L 09/29/22 20: RDW 16.0 % (12.1-15.1) H 09/29/22 20:03 Plt Count 279 10^3/cmm (130-400) 09/29/22 20:03 MPV 9.9 fL (7.4-10.4) 09/29/22 20:03 Neut % (Auto) 61.7 % 09/29/22 20: Lymph % (Auto) 21.3 % 09/29/22 20: [place] % (Auto) 8.6 % 09/29/22 20:03 Eos % (Auto) 7.1 % 09/29/22 20:03 Baso % (Auto) 1.0 % 09/29/22 20: Neut # (Auto) 4.45 10^3/uL (1.8-7.7) 09/29/22 20: Lymph # (Auto) 1.5 10^3/uL (0.8-4.8) 09/29/22 20:03 [place] # (Auto) 0.6 10^3/uL (0.2-0.9) 09/29/22 20:03 Eos # (Auto) 0.5 10^3/uL (0.0-0.8) 09/29/22 20:03 Baso # (Auto) 0.1 10^3/uL (0.0-0.1) 09/29/22 20: Nucleated RBC % (auto) 0 % 09/29/22 20: Nucleated RBCs # 0.0 /100WBC 09/29/22 20: PT 15.60 SECONDS (12.1-14.9) H 09/29/22 20: INR 1.21 (0.8-1.2) H 09/29/22 20:03 Sodium 135 mmol/L (136-145) L 09/29/22 20:03 Potassium 4.2 mmol/L (3.5-5.1) 09/29/22 20:03 Chloride 99 mmol/L (98-107) 09/29/22 20:03 Carbon Dioxide 25 mmol/L (22-29) 09/29/22 20:03 Anion Gap 15.2 (5-19) 09/29/22 20:03 BUN 16 mg/dL (8-23) 09/29/22 20:03 Creatinine 1.3 mg/dL (0.7-1.2) H 09/29/22 20:03 GFR Calculation Not Reportable 09/29/22 20:03 Glucose 164 mg/dL (65-115) H 09/29/22 20:03 POC Glucose 127 mg/dL (70-110) H 09/29/22 20:39 Calculated Osmolality 285 mOsm/kg (285-295) 09/29/22 20:03 Lactate 3.2 mmol/L (0.5-2.2) H 09/29/22 20:08 Calcium 8.6 mg/dL (8.5-10.5) 09/29/22 20:03 Magnesium 1.6 mg/dL (1.7-2.3) L 09/29/22 20:03 Total Bilirubin 0.6 mg/dL (0.15-1.2) 09/29/22 20:03 AST 25 U/L (0-40) 09/29/22 20:03 ALT 24 U/L (0-41) 09/29/22 20:03 Alkaline Phosphatase 55 U/L (40-130) 09/29/22 20:03 Troponin T Baseline 35 ng/L (0-15) H 09/29/22 20:03 Troponin T 120 Minute 33.08 ng/L (0-15) H 09/29/22 21:21 Delta Troponin T -1.92 ABS# (0-10) L 09/29/22 21:21 NT-Pro-B Natriuret Pep 1214 pg/mL (0-450) H 09/29/22 20:03 Total Protein 7.0 g/dL (6.6-8.7) 09/29/22 20:03 Albumin 3.3 g/dL (3.5-5.2) L 09/29/22 20:03 Globulin 3.7 g/dL (1.3-4.6) 09/29/22 20:03 TSH 7.57 uIU/mL (0.27-4.20) H 09/29/22 20:03 Urine Color Yellow (Yellow) 09/29/22 21:15 Urine Appearance Clear (CLEAR) 09/29/22 21:15 Urine pH 5 (5-7) 09/29/22 21:15 Ur Specific [place] 1.020 (1.005-1.030) 09/29/22 21:15 Urine Protein Neg (Negative) 09/29/22 21:15 Urine Glucose (UA) Norm (Normal) 09/29/22 21:15 Urine Ketones Negative (Negative) 09/29/22 21:15 Urine Blood Neg (Negative) 09/29/22 21:15 Urine Nitrate Negative (Negative) 09/29/22 21:15 Urine Bilirubin Neg (Negative) 09/29/22 21:15 Urine Urobilinogen Norm mg/dL (Negative) 09/29/22 21:15 Ur Leukocyte Esterase Negative (Negative) 09/29/22 21:15 EKG Data EKG 1: I personally reviewed and interpreted this EKG as follows: EKG interpretation date: 09/29/22 EKG interpretation time: 20:01 Interpretation: nsr hr [address] or t wave abnormalities qrs 116 qtc 471 Computer generated interpretation: Chest X-Ray 09/29/22 20:00 IMPRESSION: Chronic interstitial changes in both lungs. Superimposed pulmonary edema or pneumonia in the left lung base is not excluded. Head CT 09/29/22 20:00 IMPRESSION: No acute intracranial findings. Discharge Plan Discharge Patient Disposition: Home Clinical Impression: Confusion Condition: Stable Prescriptions: No Action oxycodone-acetaminophen 5-325 mg tablet 1 tab PO Q4H PRN (Reason: pain) furosemide [Lasix] 40 mg tablet 40 mg PO QAM Qty: 90 3RF Levemir U-100 Insulin 100 unit/mL solution 40 unit SUBCUT BEDTIME atorvastatin 40 mg tablet 20 mg PO BEDTIME magnesium hydroxide [Milk of Magnesia] 400 mg/5 mL Suspension 30 ml PO DAILY PRN (Reason: Constipation) Qty: 0 bisacodyl 10 mg Suppository 10 mg MI DAILY PRN (Reason: Constipation) Qty: 0 Fleet Enema 19-7 gram/118 mL Enema 118 ml MI DAILY PRN (Reason: Constipation) Qty: 0 aspirin 81 mg Tablet,Delayed Release (Dr/Ec) 81 mg PO DAILY Qty: 0 0RF Eliquis 5 mg Tablet 5 mg PO BID Qty: 0 0RF alprazolam 0.5 mg tablet 0.5 mg PO TID PRN (Reason: Anxiety) acetaminophen 325 mg tablet 650 mg PO Q4H PRN (Reason: Mild/Mod Pain Or Temp >/= 101) [place] Nasal 0.65 % Aerosol,[place] 1 spray INTRANASAL Q6H PRN (Reason: Nasal Congestion) glipizide 2.5 mg tablet extended release 24hr 2.5 mg PO DAILY buspirone 5 mg Tablet 5 mg PO TID tizanidine 2 mg Tablet 2 mg PO TID PRN (Reason: Muscle Pain) albuterol sulfate 2.5 mg /3 mL (0.083 %) Solution For Nebulization 2.5 mg INHALATION Q4H PRN (Reason: Shortness Of Breath) trazodone 100 mg Tablet 100 mg PO BEDTIME levothyroxine 150 mcg Tablet 150 mcg PO DAILY gabapentin 300 mg Capsule 300 mg PO TID fluticasone propionate 50 mcg/actuation [place],Suspension 1 spray INTRANASAL BID Rx Instructions: administer into each nostril colestipol 1 gram Tablet 2 g PO DAILY risperidone [Risperdal] 0.5 mg Tablet 0.5 mg PO BEDTIME pramoxine 1 % Foam 1 applic topical . DIRECTED PRN (Reason: pruritis) budesonide-formoterol [Symbicort] 160-4.5 mcg/actuation Hfa Aerosol Inhaler 2 puff INHALATION BID Cough Drops 2.7 mg Lozenge 5.4 mg MUCOUS MEMBRANE Q2H PRN (Reason: Cough) Acidophilus-Pectin 75 million cell -100 mg Capsule 1 cap PO TID pantoprazole 40 mg Tablet,Delayed Release (Dr/Ec) 40 mg PO DAILY metoprolol succinate 50 mg Tablet Extended Release 24 Hr 50 mg PO DAILY Zofran 4 mg Tablet 4 mg PO Q4H PRN (Reason: Nausea) metformin 1,000 mg Tablet 1,000 mg PO BID venlafaxine 225 mg Tablet Extended Release 24hr 225 mg PO DAILY Discharge Orders: Discharge ED (Routine); Ordered 09/29/22 Ordered By: Michelle Langford Referrals: Dheeraj Gonzalez Jr, MD [Primary Care Provider] - Discharge Diet: Advance as tolerated Discharge Activity: Resume usual activity Patient Instructions: Altered Mental Status (ED) Coding Level of Care Code ED Data Control Assistant for Chg Fwd Exam Comprehensive
[2022-09-29] MEDS: sodium chloride 0.9% 1,000 ML 999 ML IV (20:08)
[2022-09-29 20:11] LABS: Basophils # 0.1 10^3/uL (0.0-0.1); Eosinophils # 0.5 10^3/uL (0.0-0.8); Eosinophils % 7.1 %; Hematocrit 35.7 % (42.0-52.0); Hemoglobin 10.4 g/dL (11.7-16.6); Lymphocytes # 1.5 10^3/uL (0.8-4.8); Lymphocytes % 21.3 %; Mean Corpuscular HGB Conc 29.1 g/dL (30.0-36.0); Mean Corpuscular Hemoglobin 23.3 pg (28.0-34.0); Mean Corpuscular Volume 79.9 fl (80-94); Mean Platelet Volume 9.9 fL (7.4-10.4); Monocytes # 0.6 10^3/uL (0.2-0.9); Monocytes % 8.6 %; Neutrophils # 4.45 10^3/uL (1.8-7.7); Neutrophils % 61.7 %; Nucleated Red Blood Cells % 0 %; Platelet Count 279 10^3/cmm (130-400); Red Blood Count 4.47 10^6/uL (4.1-5.3); White Blood Count 7.2 10^3/uL (4.0-10.0)
[2022-09-29 20:31] LABS: Lactate (Lactic Acid level) 3.2 mmol/L (0.5-2.2)
[2022-09-29 20:32] LABS: Troponin(5th) Baseline 35 ng/L (0-15)
[2022-09-29 20:34] LABS: INR 1.21 (0.8-1.2)
[2022-09-29 20:40] VITALS: BP 104/57; PULSE 56; RESP 14; O2SAT 95
[2022-09-29 20:41] LABS: Alanine Aminotransferase 24 U/L (0-41); Albumin Level 3.3 g/dL (3.5-5.2); Alkaline Phosphatase 55 U/L (40-130); Anion Gap 15.2 (5-19); Aspartate Amino Transferase 25 U/L (0-40); Blood Urea Nitrogen 16 mg/dL (8-23); Calcium 8.6 mg/dL (8.5-10.5); Carbon Dioxide 25 mmol/L (22-29); Chloride 99 mmol/L (98-107); Globulin 3.7 g/dL (1.3-4.6); Glucose 164 mg/dL (65-115); Magnesium 1.6 mg/dL (1.7-2.3); NT Pro B Type Natriuretic Pept 1214 pg/mL (0-450); Osmolality Calculated 285 mOsm/kg (285-295); Potassium 4.2 mmol/L (3.5-5.1); Sodium 135 mmol/L (136-145); Thyroid Stimulating Hormone 7.57 uIU/mL (0.27-4.20); Total Bilirubin 0.6 mg/dL (0.15-1.2)
[2022-09-29 20:43] LABS: Glucose Point of Care 127 mg/dL (70-110)
[2022-09-29 21:37] LABS: Add Urine Microscopic? NO; Charge for UA Resulting for Rev
[2022-09-29 21:46] LABS: Bilirubin Urine Neg (Negative); Blood Urine Neg (Negative); Glucose Urine UA Norm (Normal); Ketones Urine Negative (Negative); Leukocyte Esterase Urine Negative (Negative); Nitrate Urine Negative (Negative); Protein Urine Neg (Negative); Urine Appearance Clear (CLEAR); Urine Color Yellow (Yellow); Urobilinogen Urine Norm (Negative); pH Urine 5 (5-7)
[2022-09-29 21:56] LABS: Troponin 5 2HR 33.08 ng/L (0-15)
[2022-09-29 21:58] LABS: Troponin 5 2HR Delta -1.92 ABS# (0-10)
--- NOTE | 2022-09-29 22:01 | ECG_ITS ---
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 Measurements Intervals [place] Rate: 64 P: -7 MD: 174 QRS: 15 QRSD: 116 T: 180 QT: 462 QTc: 478 Interpretive Statements SINUS RHYTHM LEFT VENTRICULAR HYPERTROPHY AND ST-T CHANGE [VOLTAGE CRITERIA PLUS ST/T ABNORMALITY] INFERIOR MYOCARDIAL INFARCTION , PROBABLY OLD [40+ ms Q WAVE AND/OR ST/T ABNORMALITY IN II/aVF] Compared to ECG 09/26/2022 21:57:13 Left ventricular hypertrophy now present ST (T wave) deviation now present Myocardial infarct finding now present Intraventricular conduction delay no longer present T-wave abnormality no longer present Electronically Signed On 09-30-2022 6:31:31 BURLING AND JOINING SUPERVISOR by Miguel Coats M.D. [id number]
[2022-09-29 22:05] VITALS: BP 111/55; PULSE 61; RESP 17; O2SAT 98
[2022-09-29 22:42] VITALS: BP 126/72; PULSE 66; RESP 15; O2SAT 96
== END 2022-09-29 22:30 | disposition home or self-care (01) ==
PROVIDERS: Emergency Provider Emergency Medicine; PCP Family Medicine
DX: R41.0 Disorientation, unspecified (principal); Z79.01 Long term (current) use of anticoagulants; Z79.84 Long term (current) use of oral hypoglycemic drugs; Z79.82 Long term (current) use of aspirin; Z79.4 Long term (current) use of insulin; I13.0 Hypertensive heart and chronic kidney disease with heart failure and stage 1 through stage 4 chronic kidney disease, or unspecified chronic kidney disease; N18.2 Chronic kidney disease, stage 2 (mild); I50.20 Unspecified systolic (congestive) heart failure; J44.9 Chronic obstructive pulmonary disease, unspecified; I25.10 Atherosclerotic heart disease of native coronary artery without angina pectoris; Z86.73 Personal history of transient ischemic attack (TIA), and cerebral infarction without residual deficits; Z86.711 Personal history of pulmonary embolism; Z87.891 Personal history of nicotine dependence
CPT/HCPCS: 36415; 36416; 70450; 71045; 80048; 80053; 81003; 82962; 83605; 83735; 83880; 84443; 84484; 85025; 85610; 87040; 93005; 99285; J7030

== ENCOUNTER 2022-10-10 17:08 | Emergency (ER) | payer MEDICARE, MEDICAID, SELFPAY ==
[2022-10-10] VITALS (7 sets, daily range): BP systolic 122–178; BP diastolic 77–104; PULSE 80–95; RESP 15–20; O2SAT 91–96
--- NOTE | 2022-10-10 17:16 | ED.C_ITS ---
Documented by User: Chato Mars MD 10/23/22 20:07 HPI - Psych General: Chief Complaint: Altered Mental Status Stated Complaint: PTSD EPISODE Time Seen by Provider: 10/10/22 17:16 Limitations: altered mental status History of Present Illness: Mr. Gillette is a 77-year-old gentleman with history of hypertension, hyperlipidemia, prior stroke, PTSD presenting to the emergency department due to mental status change. Apparently he became agitated believing he was in [place] earlier today. He was administered by [facility] 5 mg Haldol and 0.5 of Xanax and is subsequently calmed down. He did have a witnessed episode of EMS of increased agitation again with believe that he was in [place] fighting. Otherwise denies medical complaints. He reports increased stress regarding his current living situation as he does not feel his [facility] satisfactory. No other specific changes in health, exacerbating, or alleviating factors identified. Review of Systems General: Reports: ROS unobtainable due to mental status PFSH ED PFSH: Medical History Chronic kidney disease, stage II (mild) COPD (chronic obstructive pulmonary disease) Coronary artery disease CVA (cerebral vascular accident) GI bleed Hypertension Hypothyroidism Lower back pain Pulmonary embolism Spinal cord stimulator status Systolic congestive heart failure Last echocardiogram November 2019: LVEF 55%, grade 2 diastolic dysfunction. Surgical History H/O cardiac catheterization H/O shoulder surgery History of ankle surgery History of right-sided carotid endarterectomy Hx of cholecystectomy Family History Denies family history of Lung disease Hypertension Social History Smoking and tobacco status: former smoker Alcohol intake: never Household members: other Details: [facility] of a [facility] Physical Exam Const: COMMON NORMALS: alert GENERAL APPEARANCE: cooperative and well developed HENMT: COMMON NORMALS: normocephalic and atraumatic HEAD & SCALP: normocephalic and atraumatic THROAT: posterior oropharynx normal Eye: COMMON NORMALS: conjunctivae normal CONJUNCTIVA: Yes conjunctivae normal SCLERA: sclerae normal Neck/C-Spine: COMMON NORMALS: supple GENERAL: Yes trachea midline Resp: COMMON NORMALS: clear to auscultation bilaterally EFFORT & INSPECTION: Yes able to speak in complete sentences AUSCULTATION: clear to auscultation bilaterally Cardio: COMMON NORMALS: regular rate and regular rhythm RATE: regular rate RHYTHM: regular rhythm GI: COMMON NORMALS: Soft to palpation PALPATION: Yes Soft to palpation and No Tenderness to palpation present (GI) Extremity: GENERAL: Yes normal exam except as noted and No edema Neuro: COMMON NORMALS: moves all extremities SENSORIUM/ORIENTATION: Yes alert and No Orientation impaired Psych: COMMON NORMALS: mental status grossly normal and Normal thought process present THOUGHT PROCESS: Normal thought process present Course Vital Signs: Vital signs: Vital Signs Pulse Rate 72 10/11/22 01:33 Respiratory Rate 16 10/11/22 01:33 Blood Pressure 153/90 10/11/22 01:33 Pulse Oximetry 95 10/11/22 01:33 Oxygen Delivery Me thod 10/11/22 01:33 Oxygen Flow Rate 5 10/11/22 01:33 MDM - Psych Medical Decision Making 77-year-old gentleman presenting to the emergency department for altered mental status, behavioral disturbance, and what appears to be flashbacks. Patient calm and cooperative on exam though has limited insight. Patient is nontoxic, exam as above. EKG shows sinus rhythm with nonspecific ST segment abnormalities, similar to prior, no STEMI. Labs notable for minimal leukocytosis which is nonspecific and not pertinent to that in the absence of focal infectious symptoms. Baseline hemoglobin with microcytic anemia, normal platelet count. Metabolic panel without significant derangement to explain symptoms. TSH is normal. No evidence of urinary tract infection. Toxic ingestions negative. Urine drug screen only positive for benzodiazepines which the patient is prescribed. COVID-negative. Chest x-ray similar to prior. Given reported clinical history as well as exam and review of previous records including CT scan of the head from last night there is no indication for repeat imaging at this time. Given the patient's PTSD/hallucination type symptoms associated with aggressive behavior I believe that inpatient psychiatric stabilization is reasonable. We do not have [facility] psych beds at our facility and therefore patient will require transfer. Per discussion with patient's daughter he is becoming increasingly paranoid and has a longstanding history of psychiatric disorder. She believes that his symptoms are uncontrolled compared to when he is functioning well. She agrees that inpatient management is the best route forward Based on ED evaluation at this point there is no obvious condition that would preclude the patient from inpatient management of psychiatric symptoms. Patient medically cleared and accepted to [facility] for geriatric psych he has been stable here and will transfer Medical Records I reviewed the patient's medical records. Lab Data I reviewed the patient's lab results. 10/10/22 18:05 10/10/22 18:05 Radiology Impressions Chest X-Ray 10/10/22 19:16 IMPRESSION: 1. Stable pain management/neurostimulator device. 2. Grossly stable bilateral interstitial opacities most consistent with pulmonary fibrosis. Laboratory Results WBC 10.5 10^3/uL (4.0-10.0) H 10/10/22 18:05 RBC 5.00 10^6/uL (4.1-5.3) 10/10/22 18:05 Hgb 11.4 g/dL (11.7-16.6) L 10/10/22 18:05 Hct 38.5 % (42.0-52.0) L 10/10/22 18:05 MCV 77.0 fl (80-94) L 10/10/22 18:05 MCH 22.8 pg (28.0-34.0) L 10/10/22 18:05 MCHC 29.6 g/dL (30.0-36.0) L 10/10/22 18:05 RDW 15.7 % (12.1-15.1) H 10/10/22 18:05 Plt Count 377 10^3/cmm (130-400) 10/10/22 18:05 MPV 9.8 fL (7.4-10.4) 10/10/22 18:05 Neut % (Auto) 73.2 % 10/10/22 18:05 Lymph % (Auto) 14.6 % 10/10/22 18:05 [place] % (Auto) 9.1 % 10/10/22 18:05 Eos % (Auto) 1.7 % 10/10/22 18:05 Baso % (Auto) 0.9 % 10/10/22 18:05 Neut # (Auto) 7.72 10^3/uL (1.8-7.7) H 10/10/22 18:05 Lymph # (Auto) 1.5 10^3/uL (0.8-4.8) 10/10/22 18:05 [place] # (Auto) 1.0 10^3/uL (0.2-0.9) H 10/10/22 18:05 Eos # (Auto) 0.2 10^3/uL (0.0-0.8) 10/10/22 18:05 Baso # (Auto) 0.1 10^3/uL (0.0-0.1) 10/10/22 18:05 Nucleated RBC % (auto) 0 % 10/10/22 18:05 Nucleated RBCs # 0.0 /100WBC 10/10/22 18:05 Sodium 135 mmol/L (136-145) L 10/10/22 18:05 Potassium 4.1 mmol/L (3.5-5.1) 10/10/22 18:05 Chloride 98 mmol/L (98-107) 10/10/22 18:05 Carbon Dioxide 25 mmol/L (22-29) 10/10/22 18:05 Anion Gap 16.1 (5-19) 10/10/22 18:05 BUN 15 mg/dL (8-23) 10/10/22 18:05 Creatinine 0.8 mg/dL (0.7-1.2) 10/10/22 18:05 GFR Calculation Not Reportable 10/10/22 18:05 Glucose 102 mg/dL (65-115) 10/10/22 18:05 Calculated Osmolality 281 mOsm/kg (285-295) L 10/10/22 18:05 Calcium 9.2 mg/dL (8.5-10.5) 10/10/22 18:05 Total Bilirubin 0.8 mg/dL (0.15-1.2) 10/10/22 18:05 AST 29 U/L (0-40) 10/10/22 18:05 ALT 33 U/L (0-41) 10/10/22 18:05 Alkaline Phosphatase 59 U/L (40-130) 10/10/22 18:05 Total Protein 7.9 g/dL (6.6-8.7) 10/10/22 18:05 Albumin 3.9 g/dL (3.5-5.2) 10/10/22 18:05 Globulin 4.0 g/dL (1.3-4.6) 10/10/22 18:05 TSH 2.46 uIU/mL (0.27-4.20) 10/10/22 18:05 Urine Color Yellow (Yellow) 10/10/22 18:20 Urine Appearance Clear (CLEAR) 10/10/22 18:20 Urine pH 6 (5-7) 10/10/22 18:20 Ur Specific [employer] 1.010 (1.005-1.030) 10/10/22 18:20 Urine Protein 1+ (Negative) H 10/10/22 18:20 Urine Glucose (UA) Norm (Normal) 10/10/22 18:20 Urine Ketones Negative (Negative) 10/10/22 18:20 Urine Blood Neg (Negative) 10/10/22 18:20 Urine Nitrate Negative (Negative) 10/10/22 18:20 Urine Bilirubin Neg (Negative) 10/10/22 18:20 Urine Urobilinogen Norm mg/dL (Negative) 10/10/22 18:20 Ur Leukocyte Esterase Negative (Negative) 10/10/22 18:20 Urine RBC None /hpf (0-2) 10/10/22 18:20 Urine WBC None /hpf (0-5) 10/10/22 18:20 Ur Squamous Epith Cells None /hpf (0-5) 10/10/22 18:20 Amorphous Sediment Not Reportable 10/10/22 18:20 Urine Bacteria None /hpf (NONE) 10/10/22 18:20 Salicylates < 0.3 mg/dL (3-10) L 10/10/22 18:05 Urine Opiates Screen Negative ng/mL (Negative) 10/10/22 18:20 Acetaminophen < 5.0 ug/mL (10-30) L 10/10/22 18:05 Ur Barbiturates Screen Negative ng/mL (Negative) 10/10/22 18:20 Ur Phencyclidine Scrn Negative ng/mL (Negative) 10/10/22 18:20 Ur Amphetamines Screen Negative ng/mL (Negative) 10/10/22 18:20 U Benzodiazepines Scrn Positive ng/mL (Negative) H 10/10/22 18:20 Urine Cocaine Screen Negative ng/mL (Negative) 10/10/22 18:20 U Marijuana (THC) Screen Negative ng/mL (Negative) 10/10/22 18:20 Ethyl Alcohol < 10 mg/dL (0-10) 10/10/22 18:05 SARS-CoV-2 Ag (Rapid) negative (Negative) 10/10/22 18:18 Discharge Plan Discharge Patient Disposition: Xfer Other Condition: Stable Referrals: Dheeraj Gonzalez Jr, MD [Primary Care Provider] - Coding Level of Care Code ED Cyber Security Architect for Chg Fwd Exam Comprehensive Documented by User: Michelle Langford MD 10/11/22 01:32 HPI - Psych General: Chief Complaint: Altered Mental Status Stated Complaint: PTSD EPISODE Time Seen by Provider: 10/10/22 17:16 PFSH ED PFSH: Medical History Chronic kidney disease, stage II (mild) COPD (chronic obstructive pulmonary disease) Coronary artery disease CVA (cerebral vascular accident) GI bleed Hypertension Hypothyroidism Lower back pain Pulmonary embolism Spinal cord stimulator status Systolic congestive heart failure Last echocardiogram November 2019: LVEF 55%, grade 2 diastolic dysfunction. 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 Patient calm and cooperative on exam though has limited insight. Patient is nontoxic, exam as above. EKG shows sinus rhythm with nonspecific ST segment abnormalities, similar to prior, no STEMI. Labs notable for minimal leukocytosis which is nonspecific and not pertinent to that in the absence of focal infectious symptoms. Baseline hemoglobin with microcytic anemia, normal platelet count. Metabolic panel without significant derangement to explain symptoms. TSH is normal. No evidence of urinary tract infection. Toxic ingestions negative. Urine drug screen only positive for benzodiazepines which the patient is prescribed. COVID-negative. Chest x-ray similar to prior. Given reported clinical history as well as exam and review of previous records including CT scan of the head from last night there is no indication for repeat imaging at this time. Given the patient's PTSD/hallucination type symptoms associated with aggressive behavior I believe that inpatient psychiatric stabilization is reasonable. We do not have [facility] psych beds at our facility and therefore patient will require transfer. Per discussion with patient's daughter he is becoming increasingly paranoid and has a longstanding history of psychiatric disorder. She believes that his symptoms are uncontrolled compared to when he is functioning well. She agrees that inpatient management is the best route forward Based on ED evaluation at this point there is no obvious condition that would preclude the patient from inpatient management of psychiatric symptoms. Patient medically cleared and accepted to [facility] for geriatric psych he has been stable here and will transfer Lab Data 10/10/22 18:05 10/10/22 18:05 Radiology Impressions Chest X-Ray 10/10/22 19:16
--- NOTE | 2022-10-10 17:30 | ECG_ITS ---
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 Measurements Intervals [place] Rate: 82 P: 9 MN: 184 QRS: 20 QRSD: 128 T: 53 QT: 386 QTc: 452 Interpretive Statements SINUS RHYTHM POSSIBLE INFERIOR MYOCARDIAL INFARCTION , PROBABLY OLD [30 ms Q WAVE IN II/aVF] Compared to ECG 09/29/2022 20:01:41 Left ventricular hypertrophy no longer present ST (T wave) deviation no longer present Myocardial infarct finding still present Electronically Signed On 10-11-2022 0:14:50 [employer]INT [employer] OPERATIONS by Carolina Fang M.D. [id number]
[2022-10-10 18:21] LABS: Basophils # 0.1 10^3/uL (0.0-0.1); Basophils % 0.9 %; Eosinophils # 0.2 10^3/uL (0.0-0.8); Eosinophils % 1.7 %; Hematocrit 38.5 % (42.0-52.0); Hemoglobin 11.4 g/dL (11.7-16.6); Lymphocytes # 1.5 10^3/uL (0.8-4.8); Lymphocytes % 14.6 %; Mean Corpuscular HGB Conc 29.6 g/dL (30.0-36.0); Mean Corpuscular Hemoglobin 22.8 pg (28.0-34.0); Mean Platelet Volume 9.8 fL (7.4-10.4); Monocytes % 9.1 %; Neutrophils # 7.72 10^3/uL (1.8-7.7); Neutrophils % 73.2 %; Nucleated Red Blood Cells % 0 %; Platelet Count 377 10^3/cmm (130-400); Red Cell Distribution Width 15.7 % (12.1-15.1); White Blood Count 10.5 10^3/uL (4.0-10.0)
[2022-10-10 18:46] LABS: Amphetamines Screen Urine Negative (Negative); Barbiturates Screen Urine Negative (Negative); Benzodiazepines Screen Urine Positive (Negative); Cocaine Screen Urine Negative (Negative); Opiate Screen Urine Negative (Negative); PCP Screen Urine Negative (Negative); THC Screen Urine Negative (Negative)
[2022-10-10 18:48] LABS: Add Urine Microscopic? YES; Bilirubin Urine Neg (Negative); Blood Urine Neg (Negative); Glucose Urine UA Norm (Normal); Ketones Urine Negative (Negative); Leukocyte Esterase Urine Negative (Negative); Nitrate Urine Negative (Negative); Protein Urine 1+ (Negative); Urine Appearance Clear (CLEAR); Urine Color Yellow (Yellow); Urobilinogen Urine Norm (Negative); pH Urine 6 (5-7)
[2022-10-10 18:49] LABS: Add Urine Culture? No
[2022-10-10 18:54] LABS: Alanine Aminotransferase 33 U/L (0-41); Albumin Level 3.9 g/dL (3.5-5.2); Alkaline Phosphatase 59 U/L (40-130); Anion Gap 16.1 (5-19); Aspartate Amino Transferase 29 U/L (0-40); Blood Urea Nitrogen 15 mg/dL (8-23); Calcium 9.2 mg/dL (8.5-10.5); Carbon Dioxide 25 mmol/L (22-29); Chloride 98 mmol/L (98-107); Glucose 102 mg/dL (65-115); Osmolality Calculated 281 mOsm/kg (285-295); Potassium 4.1 mmol/L (3.5-5.1); Sodium 135 mmol/L (136-145); Thyroid Stimulating Hormone 2.46 uIU/mL (0.27-4.20); Total Bilirubin 0.8 mg/dL (0.15-1.2); Total Protein 7.9 g/dL (6.6-8.7)
[2022-10-10 18:55] LABS: Acetaminophen < 5.0 ug/mL (10-30); Alcohol Level < 10 mg/dL (0-10); Salicylate < 0.3 mg/dL (3-10)
[2022-10-10 18:56] LABS: SARS Covid-2 Antigen negative (Negative)
--- NOTE | 2022-10-10 19:05 | PC.NURSE ---
report given to DAVID Alanis to assume care
--- NOTE | 2022-10-10 19:16 | XRR_ITS ---
PROCEDURE INFORMATION: Exam: XR Chest Exam date and time: 10/10/2022 8:20 PM Age: 77 years old Clinical indication: Dyspnea; Prior surgery; Surgery type: Stimulator; Additional info: Marybel-psych placement TECHNIQUE: Imaging protocol: Radiologic exam of the chest. Views: 1 view. COMPARISON: CR (CHEST, ) 09/29/2022 9:18 PM FINDINGS: Tubes, catheters and devices: Stable pain management/neurostimulator device. Lungs: Grossly stable bilateral interstitial opacities most consistent with pulmonary fibrosis. Pleural spaces: Unremarkable. No pleural effusion. No pneumothorax. Heart/Mediastinum: Unremarkable. No cardiomegaly. Bones/joints: Unremarkable. XR/XR chest 1V portable [id number] IMPRESSION: 1. Stable pain management/neurostimulator device. 2. Grossly stable bilateral interstitial opacities most consistent with pulmonary fibrosis.
[2022-10-10] MEDS: atorvastatin 40 mg Tablet 20 MG PO (20:36)
[2022-10-10] MEDS: gabapentin 300 mg Capsule PO (20:37)
[2022-10-10] MEDS: hyDRALAzine 25 mg Tablet PO (20:37)
[2022-10-10] MEDS: BuSPIRONE 10 mg Tablet 5 MG PO (20:37)
[2022-10-10] MEDS: risperiDONE 0.25 mg Tablet 0.5 MG PO (21:17)
[2022-10-10] MEDS: trazodone 100 mg Tablet PO (21:17)
[2022-10-10] MEDS: haloperidol inj 5 mg/mL INJ 1 mL IM (21:36)
[2022-10-10] MEDS: insulin glargine 100 units/1 mL 40 UNIT SUBCUT (22:23)
[2022-10-11 01:33] VITALS: BP 153/90; PULSE 72; RESP 16; O2SAT 95
[2022-10-11] MEDS: hyDRALAzine 20 mg/mL INJ 1 mL 10 MG IM (01:41)
--- NOTE | 2022-10-11 01:52 | PC.NURSE ---
report called to Hillary at [facility]; patient has been accepted there; EMS called for transport; awaiting their arrival;
--- NOTE | 2022-10-11 02:32 | PC.NURSE ---
[facility] here to transport patient to [place]; report given and care turned over.
== END 2022-10-11 02:52 | disposition other institution (70) ==
PROVIDERS: Emergency Medicine; Emergency Provider Emergency Medicine; PCP Family Medicine
DX: F43.10 Post-traumatic stress disorder, unspecified (principal)
CPT/HCPCS: 71045; 80053; 80306; 80307; 81001; 84443; 85025; 87426; 93005; 96372; 99285; J0360; J1630; J1815

== ENCOUNTER 2022-10-27 08:48 | Outpatient (CLI) | payer MEDICARE, MEDICAID, SELFPAY ==
--- NOTE | 2022-10-27 08:45 | USCV_ITS ---
Agus Gillette Age: 77 Gender: M : 1945 Exam Date: 10/27/2022 09:06 Ordering Phys: Dominique Corona MD ([email or web address]) Technologist: Exam Location: [facility] [place] Indication: low ejection fraction on stress test BP: 140 / 85 HR: 91 Rhythm: Sinus Technical Quality: Good MEASUREMENTS (Male / Female) Normal Values 2D ECHO LV Diastolic Diameter PLAX 4.7 cm 4.2 - 5.9 / 3.9 - 5.3 cm LV Systolic Diameter PLAX 4.2 cm IVS Diastolic Thickness 1.2 cm 0.6 - 1.0 / 0.6 - 0.9 cm IVS Systolic Thickness 1.7 cm LVPW Diastolic Thickness 1.3 cm 0.6 - 1.0 / 0.6 - 0.9 cm LVPW Systolic Thickness 1.6 cm LVOT Diameter 2.0 cm LV Ejection Fraction 2D Teich 11.1 % LV Ejection Fraction MOD 2C 62.9 % LV Ejection Fraction 2C AL 63.3 % LA Diameter 5.1 cm IVC Diameter 2.1 cm M-MODE Aortic Annulus Diameter 3.3 cm LA Ao Ratio MM 1.6 MV E Point Septal Separation 1.7 cm DOPPLER AV Peak Velocity 186.0 cm/s LVOT Peak Velocity 101.0 cm/s AV Area Cont Eq vti 1.9 cm squared AV Area Cont Eq pk 1.7 cm squared MV Area PHT 5.0 cm squared Mitral E to A Ratio 1.8 MV E' Velocity 50.5 cm/s Mitral E to MV E' Ratio 11.3 Mitral E to LV E' Lateral Ratio 9.9 Mitral E to LV E' Septal Ratio 13.3 TR Peak Velocity 238.0 cm/s TR Peak Gradient 22.7 mmHg TV Peak E Velocity 126.0 cm/s Right Atrial Pressure 3.0 mmHg Pulmonary Artery Systolic Pressu 25.7 mmHg FINDINGS Left Ventricle Normal left ventricular size, systolic function and wall thickness, with no regional wall motion abnormalities. Left ventricular ejection fraction is estimated at 55 %. Abnormal diastolic function. Right Ventricle Normal right ventricular size and systolic function. RVSP could not be calculated due to incomplete tricuspid regurgitation velocity profile. Right Atrium Normal right atrial size. Left Atrium Mildly increased left atrial size. Mitral Valve Thickened mitral valve. No mitral valve stenosis. Mild mitral valve regurgitation. Aortic Valve Thickened and calcified trileaflet aortic valve. No aortic valve stenosis. Trace to mild aortic valve regurgitation. Tricuspid Valve Structurally normal tricuspid valve. Trace tricuspid valve regurgitation. Pulmonic Valve Pulmonic valve not well visualized. No pulmonary valve stenosis. No pulmonary valve regurgitation. Pericardium No pericardial effusion. Aorta Normal size aortic root and proximal ascending aorta. IVC Normal inferior vena cava. CONCLUSIONS 1. Normal left ventricular size, systolic function and wall thickness, with no diagnostic regional wall motion abnormalities. Left ventricular ejection fraction is estimated at 55 %. Abnormal diastolic function. 2. Trace to mild aortic valve regurgitation. 3. Mild mitral valve regurgitation. 4. No significant change when compared to study dated 12/10/2019. Dominique Corona MD (Electronically Signed) Final Date: 30 October 2022 19:07 S
== END 2022-10-27 08:49 | disposition home or self-care (01) ==
LOC: RAD 08:51
PROVIDERS: PCP Family Medicine; Visit Provider Internal Medicine Cardiovascular Disease
DX: R93.1 Abnormal findings on diagnostic imaging of heart and coronary circulation (principal); R06.02 Shortness of breath; I50.22 Chronic systolic (congestive) heart failure; I34.0 Nonrheumatic mitral (valve) insufficiency
CPT/HCPCS: 93306

== ENCOUNTER 2022-12-18 20:12 | Inpatient (IN) | payer MEDICARE, MEDICAID, SELFPAY ==
[2022-12-18 20:14] VITALS: BMI 35.9
[2022-12-18 20:21] VITALS: PULSE 61; RESP 16; O2SAT 93
--- NOTE | 2022-12-18 20:22 | ED_ITS ---
HPI - SOB/Dyspnea General: Chief Complaint: Shortness of Breath/Dyspnea Stated Complaint: SOB Time Seen by Provider: 12/18/22 20:21 Source: patient and EMS Mode of arrival: EMS History of Present Illness: HPI Narrative: This 77-year-old male with a history of COPD was brought in from care home with shortness of breath that progressively worsened today. He does not use oxygen at the care home and care home staff reported that his oxygen saturation was 82% on room air. They put him on 4 L of oxygen and it brought up the oxygen saturationto 86%. On arrival, EMS administered DuoNeb and 4 mg of IV Decadron. Patient has no reported fever, vomiting or diarrhea. Associated symptoms: Reports chest congestion; Deny chest pain or lightheadedness Review of Systems Const: Denies: chills, body aches or change in appetite Eyes: Denies: change in vision or eye discharge ENMT: Denies: throat pain, dental pain or nasal discharge Card: Denies: chest pain or lightheadedness Resp: Reports: dyspnea, wheezing and chest congestion : Denies: dysuria Musc: Denies: neck pain or back pain Neuro: Denies: headache(s) or weakness in extremities Psych: Denies: depression Santana/Lymph: Denies: easy bruising All/Imm: Denies: urticaria, tongue swelling or facial swelling PFS ED PFSH: Medical History (Updated 12/18/22 @ 22:04 by Feliz White MD) Chronic kidney disease, stage II (mild) COPD (chronic obstructive pulmonary disease) Coronary artery disease CVA (cerebral vascular accident) GI bleed Hypertension Hypothyroidism Lower back pain Pulmonary embolism Spinal cord stimulator status Systolic congestive heart failure Last echocardiogram November 2019: LVEF 55%, grade 2 diastolic dysfunction. Surgical History H/O cardiac catheterization H/O shoulder surgery History of ankle surgery History of right-sided carotid endarterectomy Hx of cholecystectomy Family History Denies family history of Lung disease Hypertension Social History Smoking and tobacco status: former smoker Alcohol intake: never Household members: other Details: Resident of a care home Physical Exam Const: COMMON NORMALS: patient oriented x3, no limitations and alert OTHER: Moderate respiratory distress Chest: COMMONS NORMALS: normal inspection of the chest Resp: OTHER: Tachypnea, use of accessory muscles to breathe. Inability to complete sentences without pauses, moderate respiratory distress. There is diminished breath sounds bilaterally with expiratory wheeze. Cardio: COMMON NORMALS: regular rate, regular rhythm and No murmurs present (Cardio) RATE: regular rate RHYTHM: regular rhythm GI: COMMON NORMALS: Normal to inspection, nondistended, normoactive bowel sounds present and non-tender : COMMON NORMALS: Yes no CVA tenderness BLADDER/KIDNEY EXAM: Yes no CVA tenderness Back/Pelvis: COMMON NORMALS: no CVA tenderness and no thoracic nor lumbar tenderness Extremity: GENERAL: Yes normal exam except as noted Neuro: COMMON NORMALS: patient oriented x3 and no focal motor deficits SENSORIUM/ORIENTATION: Yes alert Psych: COMMON NORMALS: mental status grossly normal and cooperative Course Vital Signs: Vital signs: Vital Signs Pulse Rate 61 12/18/22 21:03 Respiratory Rate 16 12/18/22 20:21 Pulse Oximetry 95 12/18/22 21:03 Oxygen Delivery Me thod 12/18/22 21:03 Oxygen Flow Rate 4 12/18/22 21:03 MDM - SOB/Dyspnea Medical Decision Making Medical decision making: Patient has worsening shortness of breath and is hypoxic. After receiving breathing treatment with IV steroids he felt better. Currently, he is requiring 5 L of oxygen to maintain his oxygen saturation. He will be admitted for further management. Case discussed with Dr. Tijerina, hospitalist on-call. He recommends observation placement. Lab Data 12/18/22 20:00 12/18/22 20:00 Labs/Radiology: Radiology Impressions Chest X-Ray 12/18/22 20:39 IMPRESSION: 1. Cardiomegaly. 2. Mild interstitial edema and pulmonary vascular congestion. 3. Minimal left lung field ground-glass airspace opacities reflecting alveolar edema and/or developing pneumonia. Laboratory Results WBC 10.7 10^3/uL (4.0-10.0) H 12/18/22 20:00 RBC 4.74 10^6/uL (4.1-5.3) 12/18/22 20:00 Hgb 9.6 g/dL (11.7-16.6) L 12/18/22 20:00 Hct 34.0 % (42.0-52.0) L 12/18/22 20:00 MCV 71.7 fl (80-94) L 12/18/22 20:00 MCH 20.3 pg (28.0-34.0) L 12/18/22 20:00 MCHC 28.2 g/dL (30.0-36.0) L 12/18/22 20:00 RDW 18.0 % (12.1-15.1) H 12/18/22 20:00 Plt Count 500 10^3/cmm (130-400) H 12/18/22 20:00 MPV 9.9 fL (7.4-10.4) 12/18/22 20:00 Neut % (Auto) 67.9 % 12/18/22 20:00 Lymph % (Auto) 19.4 % 12/18/22 20:00 [place] % (Auto) 10.4 % 12/18/22 20:00 Eos % (Auto) 1.0 % 12/18/22 20:00 Baso % (Auto) 0.8 % 12/18/22 20:00 Neut # (Auto) 7.27 10^3/uL (1.8-7.7) 12/18/22 20:00 Lymph # (Auto) 2.1 10^3/uL (0.8-4.8) 12/18/22 20:00 [place] # (Auto) 1.1 10^3/uL (0.2-0.9) H 12/18/22 20:00 Eos # (Auto) 0.1 10^3/uL (0.0-0.8) 12/18/22 20:00 Baso # (Auto) 0.1 10^3/uL (0.0-0.1) 12/18/22 20:00 Nucleated RBC % (auto) 0.4 % 12/18/22 20:00 Nucleated RBCs # 0.0 /100WBC 12/18/22 20:00 Specimen Type Arterial 12/18/22 21:10 Sample Site Radial, right 12/18/22 21:10 ABG pH 7.35 (7.35-7.45) 12/18/22 21:10 ABG pCO2 42.4 mmHg (35-45) 12/18/22 21:10 ABG pO2 101.0 mmHg (80.0-100.0) H 12/18/22 21:10 ABG HCO3 23.5 mmol/L (22-26) 12/18/22 21:10 ABG Base Excess -2.0 mmol/L (-2.0-2.0) 12/18/22 21:10 Fan Test Pos 12/18/22 21:10 Hematocrit 28.1 % (42-52) L 12/18/22 21:10 Hgb O2 Saturation 95.6 % (95-100) 12/18/22 21:10 Carboxyhemoglobin 1.8 %THgb (0.4-20.1) 12/18/22 21:10 Methemoglobin 0.9 % (0.4-1.5) 12/18/22 21:10 Total Hemoglobin 9.2 g/dL (14-18) L 12/18/22 21:10 O2 Delivery Device Nc 12/18/22 21:10 O2 Liters/Min 4.0 % 12/18/22 21:10 Peritoneal Dialysis Registered Nurse ID [facility] 12/18/22 21:10 Sodium 138 mmol/L (136-145) 12/18/22 20:00 Potassium 5.3 mmol/L (3.5-5.1) H 12/18/22 20:00 Chloride 98 mmol/L (98-107) 12/18/22 20:00 Carbon Dioxide 26 mmol/L (22-29) 12/18/22 20:00 Anion Gap 19.3 (5-19) H 12/18/22 20:00 BUN 36 mg/dL (8-23) H 12/18/22 20:00 Creatinine 2.4 mg/dL (0.7-1.2) H 12/18/22 20:00 GFR Calculation Not Reportable 12/18/22 20:00 Glucose 118 mg/dL (65-115) H 12/18/22 20:00 Calculated Osmolality 295 mOsm/kg (285-295) 12/18/22 20:00 Calcium 9.0 mg/dL (8.5-10.5) 12/18/22 20:00 Total Bilirubin 0.8 mg/dL (0.15-1.2) 12/18/22 20:00 AST 62 U/L (0-40) H 12/18/22 20:00 ALT 23 U/L (0-41) 12/18/22 20:00 Alkaline Phosphatase 58 U/L (40-130) 12/18/22 20:00 NT-Pro-B Natriuret Pep 4745 pg/mL (0-450) H 12/18/22 20:00 Total Protein 7.5 g/dL (6.6-8.7) 12/18/22 20:00 Albumin 3.8 g/dL (3.5-5.2) 12/18/22 20:00 Globulin 3.7 g/dL (1.3-4.6) 12/18/22 20:00 Influenza Type A Ag negative (Negative) 12/18/22 20:57 Influenza Type B Ag negative (Negative) 12/18/22 20:57 SARS-CoV-2 Ag (Rapid) negative (Negative) 12/18/22 20:57 Discharge Plan Discharge Patient Disposition: Placed in Observation Clinical Impression: Acute exacerbation of CHF (congestive heart failure), Acute exacerbation of chronic obstructive airways disease, KOKI (acute kidney injury) Coding Level of Care Code ED Freight Sorter for Charity Fwd Exam Comprehensive
--- NOTE | 2022-12-18 20:35 | ECG_ITS ---
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 Measurements Intervals [place] Rate: 61 P: 254 AL: 265 QRS: 8 QRSD: 120 T: 139 QT: 462 QTc: 466 Interpretive Statements ELECTRONIC ATRIAL PACEMAKER MODERATE INTRAVENTRICULAR CONDUCTION DELAY [110+ ms QRS DURATION] ST DEVIATION AND MODERATE T-WAVE ABNORMALITY, CONSIDER LATERAL ISCHEMIA [-0.1+ mV T-WAVE IN I/aVL/V5/V6] Compared to ECG 10/10/2022 17:53:43 Intraventricular conduction delay now present T-wave abnormality now present Possible ischemia now present Sinus rhythm no longer present Myocardial infarct finding no longer present Electronically Signed On 12-20-2022 7:08:26 GEAR REPAIR SUPERVISOR by Miguel Coats M.D. [email or web address]
--- NOTE | 2022-12-18 20:39 | XRR_ITS ---
PROCEDURE INFORMATION: Exam: XR Chest Exam date and time: 12/18/2022 9:29 PM Age: 77 years old Clinical indication: Cough and shortness of breath; Prior surgery; Surgery type: Spinal stimulator; Additional info: SOB, cough TECHNIQUE: Imaging protocol: Radiologic exam of the chest. Views: 1 view. COMPARISON: CR (CHEST, ) 10/10/2022 8:20 PM FINDINGS: Tubes, catheters and devices: Spinal stimulators. Lungs: Mild interstitial edema and pulmonary vascular congestion. Minimal left lung field ground-glass airspace opacities reflecting alveolar edema and/or developing pneumonia. Pleural spaces: Unremarkable. No pleural effusion. No pneumothorax. Heart/Mediastinum: Cardiomegaly. Bones/joints: Unremarkable. XR/XR chest 1V portable [id number] IMPRESSION: 1. Cardiomegaly. 2. Mild interstitial edema and pulmonary vascular congestion. 3. Minimal left lung field ground-glass airspace opacities reflecting alveolar edema and/or developing pneumonia.
[2022-12-18 20:50] LABS: Basophils # 0.1 10^3/uL (0.0-0.1); Basophils % 0.8 %; Eosinophils # 0.1 10^3/uL (0.0-0.8); Hemoglobin 9.6 g/dL (11.7-16.6); Lymphocytes # 2.1 10^3/uL (0.8-4.8); Lymphocytes % 19.4 %; Mean Corpuscular HGB Conc 28.2 g/dL (30.0-36.0); Mean Corpuscular Hemoglobin 20.3 pg (28.0-34.0); Mean Corpuscular Volume 71.7 fl (80-94); Mean Platelet Volume 9.9 fL (7.4-10.4); Monocytes # 1.1 10^3/uL (0.2-0.9); Monocytes % 10.4 %; Neutrophils # 7.27 10^3/uL (1.8-7.7); Neutrophils % 67.9 %; Nucleated Red Blood Cells % 0.4 %; Platelet Count 500 10^3/cmm (130-400); Red Blood Count 4.74 10^6/uL (4.1-5.3); White Blood Count 10.7 10^3/uL (4.0-10.0)
[2022-12-18 21:03] VITALS: PULSE 61; O2SAT 95
[2022-12-18] MEDS: ipratropium-albuterol 3 mL Neb INHALATION (21:03)
[2022-12-18 21:11] LABS: Alanine Aminotransferase 23 U/L (0-41); Albumin Level 3.8 g/dL (3.5-5.2); Alkaline Phosphatase 58 U/L (40-130); Anion Gap 19.3 (5-19); Aspartate Amino Transferase 62 U/L (0-40); Blood Urea Nitrogen 36 mg/dL (8-23); Carbon Dioxide 26 mmol/L (22-29); Chloride 98 mmol/L (98-107); Globulin 3.7 g/dL (1.3-4.6); Glucose 118 mg/dL (65-115); NT Pro B Type Natriuretic Pept 4745 pg/mL (0-450); Osmolality Calculated 295 mOsm/kg (285-295); Potassium 5.3 mmol/L (3.5-5.1); Sodium 138 mmol/L (136-145); Total Bilirubin 0.8 mg/dL (0.15-1.2); Total Protein 7.5 g/dL (6.6-8.7)
[2022-12-18 21:15] LABS: ABG PCO2 42.4 mmHg (35-45); ABG PH Result 7.35 (7.35-7.45); Arterial Blood Gas Hematocrit 28.1 % (42-52); Blood Gas Allen Test Pos; Blood Gas Sample Site Radial, right; Blood Gas Sample Type Arterial; Carboxyhemoglobin 1.8 %THgb (0.4-20.1); HCO3 ABG 23.5 mmol/L (22-26); HGB O2 Sat 95.6 % (95-100); Methemoglobin 0.9 % (0.4-1.5); Oxygen Device NC; Total Hemoglobin 9.2 g/dL (14-18)
[2022-12-18 21:22] LABS: SARS Covid-2 Antigen negative (Negative)
[2022-12-18 21:23] LABS: Influenza A by IFA negative (Negative); Influenza B by IFA negative (Negative)
--- NOTE | 2022-12-18 22:00 | P.HP_ITS ---
Providers/Chief Complaint Admitting Physician: Aníbal Tijerina MD Primary Care Provider: Dheeraj Gonzalez Jr, MD Chief Complaint: SOB History of Present Illness Agus Gillette is a 77 year old male with a past medical history significant for chronic kidney disease stage II, COPD, coronary artery disease, CVA, hypertension, hypothyroidism, pulmonary embolism, spinal cord stimulator, and congestive heart failure who presents from skilled nursing to the emergency department with reported shortness of breath x 1 day. Upon evaluation, patient has altered mental status and unable to provide any pertinent history. He is only oriented only to self. Not oriented to situation, place or year. Further history is obtained from ED provider who reported that patient was hypoxic on room air requiring 5 L of oxygen. He states that the skilled nursing report that he was given that the patient does not wear oxygen at baseline however chart review reveals patient does typically wear 3 L at night. Patient denies any chest pain, fevers, nausea or chills. Denies aggravating or alleviating factors. Review of Systems Narrative: A complete review of systems was obtained and is negative except as stated in HPI. Medications/Allergies Home Medications Medication Instructions Recorded Confirmed Last Taken Type apixaban 5 mg tablet (Eliquis) 5 mg PO BID #0 tabs 12/11/19 09/29/22 09/29/22 Rx aspirin 81 mg tablet,delayed 81 mg PO DAILY #0 tabs 12/11/19 09/29/22 09/29/22 Rx release bisacodyl 10 mg rectal suppository 10 mg KS DAILY PRN Constipation ##0 12/11/19 09/29/22 Unknown History magnesium hydroxide 400 mg/5 mL 30 ml PO DAILY PRN Constipation ##0 12/11/19 09/29/22 Unknown History oral suspension (Milk of Magnesia) sodium phosphates 19 gram-7 118 ml KS DAILY PRN Constipation 12/11/19 09/29/22 Unknown History gram/118 mL enema (Fleet Enema) ##0 alprazolam 0.5 mg tablet 0.5 mg PO TID PRN Anxiety 01/27/20 09/29/22 09/29/22 History acetaminophen 325 mg tablet 650 mg PO Q4H PRN Mild/Mod Pain Or 04/23/20 09/29/22 Unknown History Temp >/= 101 sodium chloride 0.65 % nasal spray 1 spray intranasal Q6H PRN Nasal 04/23/20 09/29/22 Unknown History aerosol ([place] Sea Nasal) Congestion furosemide 40 mg tablet (Lasix) 40 mg PO QAM #90 tabs 07/27/20 09/29/22 09/29/22 Rx glipizide 2.5 mg tablet, extended 2.5 mg PO DAILY 07/27/20 09/29/22 09/29/22 History release 24 hr oxycodone-acetaminophen 5 mg-325 1 tab PO Q4H PRN pain 07/27/20 09/29/22 09/29/22 History mg tablet atorvastatin 40 mg tablet 20 mg PO BEDTIME 07/05/22 09/29/22 09/29/22 History insulin detemir U-100 100 unit/mL 40 unit SUBCUT BEDTIME 07/05/22 09/29/22 09/28/22 History subcutaneous solution (Levemir U-100 Insulin) Lactobacillus acidophilus 75 1 cap PO TID 09/26/22 09/29/22 09/29/22 History million cell-pectin 100 mg capsule (Acidophilus-Pectin) albuterol sulfate 2.5 mg/3 mL 2.5 mg inhalation Q4H PRN 09/26/22 09/29/22 Unknown History (0.083 %) solution for nebulization Shortness Of Breath budesonide-formoterol HFA 160 2 puff inhalation BID 09/26/22 09/29/22 09/29/22 History mcg-4.5 mcg/actuation aerosol inhaler (Symbicort) buspirone 5 mg tablet 5 mg PO TID 09/26/22 09/29/22 09/29/22 History colestipol 1 gram tablet 2 g PO DAILY 09/26/22 09/29/22 09/29/22 History fluticasone propionate 50 1 spray intranasal BID 09/26/22 09/29/22 09/29/22 History mcg/actuation nasal spray,suspension gabapentin 300 mg capsule 300 mg PO TID 09/26/22 09/29/22 09/29/22 History levothyroxine 150 mcg tablet 150 mcg PO DAILY 09/26/22 09/29/22 09/29/22 History menthol 2.7 mg lozenges (Cough 5.4 mg mucous membrane Q2H PRN 09/26/22 09/29/22 Unknown History Drops) Cough pantoprazole 40 mg tablet,delayed 40 mg PO DAILY 09/26/22 09/29/22 09/29/22 History release pramoxine 1 % topical foam 1 applic topical . DIRECTED PRN 09/26/22 09/29/22 Unknown History pruritis risperidone 0.5 mg tablet 0.5 mg PO BEDTIME 09/26/22 09/29/22 09/29/22 History (Risperdal) tizanidine 2 mg tablet 2 mg PO TID PRN Muscle Pain 09/26/22 09/29/22 09/26/22 History trazodone 100 mg tablet 100 mg PO BEDTIME 09/26/22 09/29/22 09/28/22 History metformin 1,000 mg tablet 1,000 mg PO BID 09/29/22 09/29/22 09/29/22 History metoprolol succinate 50 mg 50 mg PO DAILY 09/29/22 09/29/22 09/29/22 History tablet,extended release 24 hr ondansetron HCl 4 mg tablet 4 mg PO Q4H PRN Nausea 09/29/22 09/29/22 Unknown History venlafaxine 225 mg tablet,extended 225 mg PO DAILY 09/29/22 09/29/22 09/29/22 History release 24 hr Allergies Allergy/AdvReac Type Severity Reaction Status Date / Time hydrocodone Allergy Unknown Unknown Verified 12/18/22 22:24 Penicillins Allergy Unknown Unknown Verified 12/18/22 22:24 valsartan Allergy Unknown Unknown Verified 12/18/22 22:24 PFSH Acute PFSH: Medical History (Updated 12/18/22 @ 22:21 by Aníbal Tijerina MD) Acute blood loss anemia KOKI (acute kidney injury) Chest pain Chronic kidney disease, stage II (mild) COPD (chronic obstructive pulmonary disease) Coronary artery disease CVA (cerebral vascular accident) Exertional shortness of breath GI bleed Hypertension Hypothyroidism Insomnia disorder Ischemic bowel disease Lower back pain Pulmonary embolism Small bowel obstruction Spinal cord stimulator status Systolic congestive heart failure Last echocardiogram November 2019: LVEF 55%, grade 2 diastolic dysfunction. Surgical History H/O cardiac catheterization H/O shoulder surgery History of ankle surgery History of right-sided carotid endarterectomy Hx of cholecystectomy Family History Denies family history of Lung disease Hypertension Social History Smoking and tobacco status: former smoker Alcohol intake: never Household members: other Details: Resident of a skilled nursing Vitals/I&O/Wt Last Vital Signs Pulse 61 12/18/22 21:03 Resp 16 12/18/22 20:21 Pulse Ox 95 12/18/22 21:03 O2 Del Method 12/18/22 21:03 O2 Flow Rate 4 12/18/22 21:03 Weight last 48 hrs Weight 113.398 kg Physical Exam Narrative: General: Patient is lethargic but arouses. Head: Normocephalic. Atraumatic. EOM intact. Neck: No JVD. Cardiovascular: RRR. No gallops. No murmurs. No peripheral edema. Lungs: Breath sounds are diminished in bilateral bases. Very faint end expiratory wheezing. no use of accessory muscles, no crackles. Skin: No jaundice. No rashes. Abdomen: Normal bowel sounds, abdomen soft and nontender. Genito Urinary: Genital exam not performed since complaints not related. Rectal: Rectal exam not performed since no symptoms indicated blood loss. Extremities: No cyanosis or clubbing. Musculoskeletal: Noo swollen or erythematous joints. Neurological: Moves all 4 extremities. No myoclonus. Oriented x1. Data 12/18/22 20:00 12/18/22 20:00 Micro: Microbiology 12/18/22 21:23 Blood Culture - Preliminary Blood SPECIMEN COLLECTED 12/18/22 21:21 Blood Culture - Preliminary Blood SPECIMEN COLLECTED A&P Assessment and plan (1) Hypoxia: Acute on chronic hypoxia Baseline oxygen requirement of 3 L while sleeping Currently on 4 L while awake Treat underlying congestive heart failure and COPD (2) Acute exacerbation of CHF (congestive heart failure): Acute on chronic heart failure with preserved ejection fraction Most recent ejection fraction 55% in November 2019 Consider repeat echocardiogram NT-Pro-BNP 4745, previously 1214 Hold oral Lasix Start IV Lasix (3) Acute exacerbation of chronic obstructive airways disease: Associated with suspected pulmonary fibrosis at baseline Status post IV steroids Start prednisone in a.m. Pulmicort Formoterol DuoNeb scheduled Procalcitonin and CRP to evaluate for pneumonia (4) Acute renal failure superimposed on stage 2 chronic kidney disease: Suspect cardiorenal although not terribly overloaded on exam with prerenal KOKI still within the differential Renal ultrasound Urine electrolytes Trend renal function (5) Altered mental status: Baseline mentation unknown, collect collateral information regarding baseline mentation Frequent reorientation Avoid sedating medications (6) Hypertension: Lasix as above Qualifiers: Hypertension type: essential hypertension Qualified Code(s): I10 - Essential (primary) hypertension (7) Hypothyroidism: Continue Synthroid (8) Pulmonary embolism: Continue apixaban Qualifiers: Pulmonary embolism type: unspecified Chronicity: chronic Acute cor pulmonale presence: unspecified Qualified Code(s): I27.82 - Chronic pulmonary embolism (9) CVA (cerebral vascular accident): Continue aspirin Continue statin (10) Anxiety and depression: Continue BuSpar Continue home Xanax as needed (11) Type 2 diabetes mellitus: Continue home Lantus at reduced dose due to KOKI Sliding-scale insulin correction Hold metformin Hold glipizide Avoid hypoglycemia Plan DVT ppx: Apixaban Code status: Full Code Attestations Medical Necessity Statement*: Patient presents with shortness of breath secondary to component of congestive heart failure and COPD, found to have acute kidney injury with work up and treatment not expected to cross two midnights. Coding Level of Care Code Acute Code for g Fwd Diagnoses Hypoxia R09.02 Acute exacerbation of CHF (congestive heart failure) I50.9 Acute exacerbation of chronic obstructive airways disease J44.1 Acute renal failure superimposed on stage 2 chronic kidney disease N17.9; N18.2 Altered mental status R41.82 Hypertension I10 Hypertension type: essential hypertension Hypothyroidism E03.9 Pulmonary embolism I27.82 Pulmonary embolism type: unspecified Chronicity: chronic Acute cor pulmonale presence: unspecified CVA (cerebral vascular accident) I63.9 Anxiety and depression F41.9; F32.9 Type 2 diabetes mellitus E11.9
[2022-12-18] MEDS: FUROsemide 10 mg/mL SDV 4mL 40 MG IVP (22:24)
[2022-12-18 22:25] VITALS: BP 107/66; PULSE 62; RESP 15; O2SAT 94
[2022-12-18 22:29] VITALS: PULSE 67
[2022-12-18 23:06] LABS: C Reactive Protein 15.7 mg/L (0.0-4.9)
[2022-12-18 23:13] LABS: Procalcitonin 0.09 ng/mL (0-0.5)
[2022-12-18 23:37] VITALS: RESP 20
[2022-12-18] MEDS: oxyCODONE-APAP 5-325 mg Tablet 1 TAB PO (23:37)
[2022-12-18 23:39] VITALS: BP 123/77; PULSE 67; RESP 18; TEMP 36.6; O2SAT 93
--- NOTE | 2022-12-18 23:40 | PC.NURSE ---
ADMIT NOTE Pt received to room from ER at 2320. Is alert. Oriented to person, birthdate and age. Does know he is in [place] but not the hospital. Pleasant. Received IV Lasix in the ER. O2 in place at 4l per NC. Says his SOB is improved. tensile tester applied. Oriented to room and bed alarm on. Call light in reach. RN completing admission assessment
[2022-12-19] VITALS (15 sets, daily range): BP systolic 105–146; BP diastolic 55–82; PULSE 68–89; RESP 16–19; TEMP 36.5–36.8; O2SAT 92–98
[2022-12-19] MEDS: ipratropium-albuterol 3 mL Neb INHALATION ×5 (04:20→20:52)
[2022-12-19 05:01] LABS: Basophils % 0.3 %; Hematocrit 31.9 % (42.0-52.0); Hemoglobin 9.1 g/dL (11.7-16.6); Lymphocytes # 0.6 10^3/uL (0.8-4.8); Lymphocytes % 8.9 %; Mean Corpuscular HGB Conc 28.5 g/dL (30.0-36.0); Mean Corpuscular Volume 70.1 fl (80-94); Monocytes # 0.1 10^3/uL (0.2-0.9); Neutrophils % 89.4 %; Nucleated Red Blood Cells % 0 %; Platelet Count 463 10^3/cmm (130-400); Red Blood Count 4.55 10^6/uL (4.1-5.3); Red Cell Distribution Width 17.8 % (12.1-15.1); White Blood Count 6.8 10^3/uL (4.0-10.0)
[2022-12-19] MEDS: predniSONE 20 mg Tablet 40 MG PO (05:07)
[2022-12-19 05:32] LABS: Anion Gap 16.4 (5-19); Blood Urea Nitrogen 34 mg/dL (8-23); Calcium 8.7 mg/dL (8.5-10.5); Carbon Dioxide 24 mmol/L (22-29); Chloride 98 mmol/L (98-107); Glucose 185 mg/dL (65-115); Magnesium 1.7 mg/dL (1.7-2.3); NT Pro B Type Natriuretic Pept 2705 pg/mL (0-450); Osmolality Calculated 288 mOsm/kg (285-295); Phosphorus 4.3 mg/dL (2.5-4.5); Potassium 5.4 mmol/L (3.5-5.1); Sodium 133 mmol/L (136-145)
[2022-12-19] MEDS: FUROsemide 10 mg/mL SDV 4mL 40 MG IVP ×2 (05:41→17:27)
[2022-12-19] MEDS: budesonide 0.5 mg/2 mL Neb INHALATION ×2 (08:21→20:52)
[2022-12-19] MEDS: metoprolol succinate ER (24 HR) 50 mg Tablet PO (08:35)
[2022-12-19] MEDS: venlafaxine ER (24HR) 150 mg Capsule PO (08:36)
[2022-12-19] MEDS: venlafaxine ER (24HR) 75 mg Capsule PO (08:36)
[2022-12-19] MEDS: levothyroxine 150 mcg Tablet PO (08:37)
[2022-12-19] MEDS: gabapentin 300 mg Capsule PO (08:37)
[2022-12-19] MEDS: BuSPIRONE 10 mg Tablet 5 MG PO ×3 (08:37→20:33)
[2022-12-19] MEDS: pantoprazole DR 40 mg Tablet PO (08:37)
[2022-12-19] MEDS: aspirin 81 mg EC Tablet PO (08:37)
[2022-12-19] MEDS: apixaban 5 mg Tablet PO (08:37)
[2022-12-19] MEDS: fluticasone nasal spray 16gm Btl 1 SPRAY INTRANASAL ×2 (08:38→17:27)
--- NOTE | 2022-12-19 09:24 | PC.PHAR ---
ALL DISC. MEDS SRE NO LONGER ON THE CURRENT MAR SENT BY [facility] NURSE PADILLA
[2022-12-19] MEDS: oxyCODONE-APAP 5-325 mg Tablet 1 TAB PO (10:18)
--- NOTE | 2022-12-19 10:46 | CT_ITS ---
WS: [id number] CT HEAD TECHNIQUE: Noncontrast CT of the head obtained from the skullbase to the vertex. CLINICAL INFORMATION: ams COMPARISON: 10/04 DLP: 1120.[address] scans at [facility] use at least one of these dose optimization techniques: automated e xposure control; mA and/or kV adjustment per patient size (includes targeted exams where dose is matc hed to clinical indication); or iterative reconstruction. FINDINGS: No evidence of intracranial hemorrhage or mass effect. Ventricular system and basal cisterns are vasquez nt. Mild small vessel changes with mild parenchymal volume loss. Vascular calcification. 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 This is unchanged from previous. No extra-axial fluid collections. No evidence of mass or mass effect. Paranasal sinuses and mastoid air cells are well aerated. .Normal visualized soft tissues. CT/CT head wo con* [id number] IMPRESSION: 1. No evidence of intracranial hemorrhage or mass effect. 2. Mild small vessel changes with mild parenchymal volume loss. 3. Vascular calcification. 4. Chronic infarct in the LEFT frontal parietal junction unchanged from previo us. 5. No acute intracranial findings.
--- NOTE | 2022-12-19 10:46 | CT_ITS ---
WS: [id number] CT ABDOMEN PELVIS TECHNIQUE: Noncontrast CT of the abdomen and pelvis with coronal and sagittal reformatted images. CLINICAL INFORMATION: obstructive uropathy COMPARISON: April 23, 2020 DLP: 921.[address] scans at [facility] use at least one of these dose optimization techniques: automated e xposure control; mA and/or kV adjustment per patient size (includes targeted exams where dose is matc hed to clinical indication); or iterative reconstruction. FINDINGS: Cholecystectomy. Fibrotic changes in the lung bases. Interstitial edema in both lung bases. Trace RIG HT pleural fluid. Coronary calcification. Cholecystectomy clips. Splenic granulomas. Small esophageal hiatal hernia. Fatty atrophy of the pancreas. Adrenal glands are normal. No hydronephrosis in either kidney. No obstructing renal or ureteral calculi. Mild prostate enlargement with calcification measuring 4.5 CM. Evidence of mild bladder outlet obstru ction. Urine distended bladder. Sigmoid diverticulosis. No evidence of acute diverticulitis. No evidence of high-grade small or large bowel obstruction. Normal terminal ileum. Dense vascular calcification. Dense calcification at the c eliac and SMA origins. Densely calcified SMA. Normal caliber abdominal aorta. Densely calcified iliac arteries. No free fluid in the pelvis. Mild lumbar curve convex LEFT. Moderate spondylitic changes lumbar spine . Spinal stimulator and extends cephalad off the [id number]. CT/CT abdomen pelvis con [id number] IMPRESSION: 1. No obstructing renal or ureteral calculi. No hydronephrosis in either kidne y. 2. Enlarged calcified prostate measuring 4.5 CM. Evidence of mild bladder outl et obstruction. Recommend correlation PSA. 3. Dense vascular calcification including mesenteric artery origins and iliac arteries. 4. Normal caliber abdominal aorta. 5. Small esophageal hiatal hernia. 6. Interstitial edema within the lung bases. Trace RIGHT pleural fluid.
--- NOTE | 2022-12-19 10:47 | ECG_ITS ---
[facility] Test Date: 2022-12-19 Pat Name: Agus Gillette Department: Room: 278 Gender: Male Drug Inspector: : 1945 Requested By: Ayden Cochran Order Number: [id number] Reading MD: Dominique Corona M.D. Measurements Intervals [place] Rate: 84 P: -15 MN: 342 QRS: 11 QRSD: 130 T: 156 QT: 395 QTc: 468 Interpretive Statements ELECTRONIC ATRIAL PACEMAKER INFERIOR MYOCARDIAL INFARCTION , PROBABLY OLD [40+ ms Q WAVE AND/OR ST/T ABNORMALITY IN II/aVF] MODERATE T-WAVE ABNORMALITY, CONSIDER LATERAL ISCHEMIA INTERPRETATION LIMITED BY ARTIFACT Compared to ECG 12/18/2022 20:35:34 Myocardial infarct finding now present Intraventricular conduction delay no longer present T-wave abnormality still present Possible ischemia still present Electronically Signed On 12-19-2022 20:46:01 VACUUM FORMING MACHINE OPERATOR by Dominique Corona M.D. [id number]
[2022-12-19 11:28] LABS: Glucose Point of Care 379 mg/dL (70-110)
[2022-12-19 11:36] LABS: D Dimer 7.62 ug/mIFEU (0-0.59)
[2022-12-19 11:37] LABS: Troponin(5th) Baseline 511 ng/L (0-15)
--- NOTE | 2022-12-19 11:39 | PC.NURSE ---
Carolyn Arambula reported to Mayra RN who notified provider.
--- NOTE | 2022-12-19 11:42 | USCV_ITS ---
Agus Gillette Age: 77 Gender: M : 1945 Exam Date: 12/19/2022 13:26 Ordering Phys: Ayden Cochran MD Technologist: CT Exam Location[place] [facility] [place] Indication: PROCEDURES: The venous duplex Doppler examination of both lower extremities was performed in the standard fashion. Bilaterally, the common femoral, superficial femoral, profunda femoral, popliteal, posterior tibial, greater saphenous veins, and the peroneal trunk were identified and interrogated in the standard fashion. These veins were found to be easily compressible with spontaneous blood flow. No evidence of insufficiency or thrombus noted. In addition, the posterior tibial and peroneal trunk were evaluated. FINDINGS: normal us CONCLUSIONS No evidence of right lower extremity DVT. No evidence of left lower extremity DVT. Bill De La Rosa MD (Electronically Signed) Final Date: 19 December 2022 15:33 S
[2022-12-19 11:46] LABS: Iron 10 ug/dL (59-158); Percent Saturation 2.6 % (20-50); Thyroid Stimulating Hormone 0.51 uIU/mL (0.27-4.20); Total Iron Binding Capacity 377 mcg/dl; Unsaturated Iron Binding 367 ug/dL (112-347); Vitamin B12 643 pg/mL (232-1245)
[2022-12-19 12:18] LABS: Add Urine Microscopic? NO; Charge for UA Resulting for Rev
[2022-12-19 12:29] LABS: Bilirubin Urine Neg (Negative); Blood Urine Neg (Negative); Glucose Urine UA Norm (Normal); Ketones Urine Negative (Negative); Leukocyte Esterase Urine Negative (Negative); Nitrate Urine Negative (Negative); Protein Urine Neg (Negative); Specific Gravity, Urine 1.015 (1.005-1.030); Urine Appearance Clear (CLEAR); Urine Color Light yellow (Yellow); Urobilinogen Urine Neg (Negative); pH Urine 5 (5-7)
[2022-12-19] MEDS: insulin lispro 100 unit/1 mL SUBCUT ×3 (12:40→21:08)
[2022-12-19 12:43] LABS: Potassium, Radom Urine 29 mmol/L; Urine Random Chloride 105 mmol/L; Urine Random Sodium 103 mmol/L
--- NOTE | 2022-12-19 12:47 | ECG_ITS ---
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 Measurements Intervals [place] Rate: 83 P: -5 LA: 356 QRS: 17 QRSD: 125 T: 158 QT: 393 QTc: 464 Interpretive Statements SINUS RHYTHM WITH BASELINE ARTIFACT MODERATE T-WAVE ABNORMALITY, CONSIDER LATERAL ISCHEMIA [-0.1+ mV T-WAVE IN I/aVL/V5/V6] Compared to ECG 12/19/2022 11:34:19 Myocardial infarct finding no longer present T-wave abnormality still present Possible ischemia still present Electronically Signed On 12-20-2022 7:11:08 RESIDENTIAL TEAM LEADER by Miguel Coats M.D. [id number]
[2022-12-19] MEDS: heparin drip 25,000 UNIT/500 ML PREMIX 27 UNIT IV (13:17)
[2022-12-19] MEDS: acetaminophen 325 mg Tablet 650 MG PO (13:25)
[2022-12-19] MEDS: ALPRAZolam 0.5 mg Tablet PO ×2 (13:25→22:15)
[2022-12-19 13:31] LABS: Partial Thromboplastin Time 34.1 SECONDS (23.9-36.7)
[2022-12-19 13:31] LABS: Troponin 5 2HR 489.8 ng/L (0-15); Troponin 5 2HR Delta -21.2 ABS# (0-10)
--- NOTE | 2022-12-19 13:34 | PC.NURSE ---
Addendum entered and electronically signed by Bianca Mancia LPN 12/19/22 13:38: -21.2 delta Original Note: Notified provider via voalte of critical troponin that went down from 511 to 489.8. Delta of 21.2
--- NOTE | 2022-12-19 13:38 | USCV_ITS ---
Agus Gillette Age: 77 Gender: M : 1945 Exam Date: 12/19/2022 17:13 Ordering Phys: Ayden Cochran MD Technologist: BELINDA [place] [facility] [place]: nstemi BP: 126 / 67 HR: 81 Rhythm: Sinus Technical Quality: Adequate MEASUREMENTS (Male / Female) Normal Values 2D ECHO LV Diastolic Diameter PLAX 5.3 cm 4.2 - 5.9 / 3.9 - 5.3 cm LV Systolic Diameter PLAX 4.8 cm IVS Diastolic Thickness 0.9 cm 0.6 - 1.0 / 0.6 - 0.9 cm IVS Systolic Thickness 1.1 cm LVPW Diastolic Thickness 1.4 cm 0.6 - 1.0 / 0.6 - 0.9 cm LVPW Systolic Thickness 1.6 cm LVOT Diameter 2.2 cm LV Ejection Fraction 2D Teich 20.9 % LV Ejection Fraction MOD 2C 33.8 % LV Ejection Fraction 2C AL 34.0 % LA Diameter 4.9 cm LA Width 4.1 cm LA Height 6.4 cm RA Width 4.4 cm RA Height 5.3 cm Aorta at Sinotubular Diameter 2.7 cm IVC Diameter 2.3 cm M-MODE Aortic Annulus Diameter 2.6 cm LA Ao Ratio MM 1.9 MV E Point Septal Separation 1.2 cm DOPPLER AV Peak Velocity 178.7 cm/s LVOT Peak Velocity 66.0 cm/s AV Area Cont Eq vti 1.3 cm squared AV Area Cont Eq pk 1.4 cm squared MV Peak Velocity 79.0 cm/s MV Area PHT 7.6 cm squared Mitral E to A Ratio 1.4 MV E' Velocity 46.5 cm/s Mitral E to MV E' Ratio 12.2 Mitral E to LV E' Lateral Ratio 10.5 Mitral E to LV E' Septal Ratio 14.7 TR Peak Velocity 292.1 cm/s TR Peak Gradient 34.1 mmHg TR Mean Velocity 206.4 cm/s TR Mean Gradient 19.6 mmHg TR Velocity Time Integral 83.4 cm Right Atrial Pressure 8.0 mmHg Pulmonary Artery Systolic Pressu 42.1 mmHg PV Peak Velocity 89.0 cm/s RV Acceleration Time 0.1 s RV Ejection Time 0.3 s RV AcT/ET 0.4 FINDINGS Left Ventricle Left ventricle is normal in size. LV systolic function is moderately reduced with EF of 35 to 40%. Moderate global hypokinesis is seen. Severely hypokinetic inferior wall. Right Ventricle Moderately hypokinetic. Right Atrium Normal in size Left Atrium Mildly dilated Mitral Valve Mitral valve is thickened. Mild mitral regurgitation. Aortic Valve Aortic valve is thickened. Mild aortic regurgitation. Mild aortic stenosis with aortic valve area of 1.26cm2 and mean gradient across aortic valve of 7mmHg. Tricuspid Valve Mild tricuspid regurgitation. RVSP is 40 to 45 mmHg. This is consistent with mild pulmonary hypertension. Pulmonic Valve Trace pulmonic regurgitation. Pericardium Normal Aorta Normal in size IVC Dilated CONCLUSIONS Reducible moderately reduced with EF of 35 to 40% Moderate global hypokinesis seen. Severely hypokinetic inferior wall Moderately hypokinetic right ventricle Mildly dilated left atrium Mild mitral regurgitation Mild aortic regurgitation. Mild aortic stenosis. Mild tricuspid regurgitation Mild pulmonary hypertension Trace pulmonic regurgitation Compared to prior echocardiogram from 10/2022, LV systolic function has reduced and is moderately reduced now Miguel Coats MD (Electronically Signed) Final Date: 20 December 2022 08:33 S
--- NOTE | 2022-12-19 15:10 | P.PN_ITS ---
Subjective Subjective: Admitted overnight. H&P and labs appreciated. On examination patient laying comfortably in bed. Patient is alert and oriented to self, place, reason for being in hospital. Denies any chest pain. States he came yesterday because he was having shortness of breath. Denies any nausea, vomiting, headache. Has remained hemodynamically stable and afebrile since admission. No urine documentation. On 3 L saturating more than 90%. Vitals/I&O/Wt Last Vital Signs Temp 98.2 F 12/19/22 11:41 Pulse 84 12/19/22 12:00 Resp 16 12/19/22 12:00 BP 126/67 12/19/22 11:41 Pulse Ox 95 12/19/22 12:00 O2 Del Method 12/19/22 12:00 O2 Flow Rate 3 12/19/22 12:00 12/19/22 12/19/22 12/19/22 06:59 14:59 22:59 Intake Total 60 / 60 740 / 740 Output Total Balance 59 / 59 740 / 740 Weight last 48 hrs Weight 97.296 kg Weight 113.398 kg Physical Exam Narrative: General: No acute distress, awake and alert to self, place, reason for being in the hospital Head: Normocephalic. Atraumatic. EOM intact. Neck: No JVD. Cardiovascular: RRR. No gallops. No murmurs. No peripheral edema. Lungs: Breath sounds are diminished in bilateral bases. Very faint end expiratory wheezing. no use of accessory muscles, no crackles. Skin: No jaundice. No rashes. Abdomen: Normal bowel sounds, abdomen soft and nontender. Extremities: No cyanosis or clubbing. Musculoskeletal: Noo swollen or erythematous joints. Neurological: Moves all 4 extremities. No myoclonus. Data 12/19/22 04:53 12/19/22 04:53 Micro: Microbiology 12/19/22 12:10 Bacterial Antigens - Final Urine Kidney 12/19/22 12:10 Legionella Urinary Antigen - Final Urine,Voided 12/18/22 21:23 Blood Culture - Preliminary Blood SPECIMEN COLLECTED 12/18/22 21:21 Blood Culture - Preliminary Blood SPECIMEN COLLECTED A&P Assessment and plan (1) Hypoxia: Acute on chronic hypoxia. Baseline oxygen requirement of 3 L while sleeping Most likely secondary to combination of COPD and congestive heart failure exacerbation. Given his history cannot rule out worsening of pulmonary embolism or active CAD. Check D-dimer, proBNP elevated, troponin cycle. (2) Acute exacerbation of CHF (congestive heart failure): Acute on chronic heart failure with preserved ejection fraction Most recent ejection fraction 55% in October 2022.. Nonischemic cardiomyopathy Strict input output charting. IV Lasix 40 mg every 12 hourly. Mackey catheter. Daily weights. NT-Pro-BNP 4745, previously 1214 Hold oral Lasix Start IV Lasix (3) NSTEMI (non-ST elevated myocardial infarction): Baseline troponin more than 500. Cycle troponins. Switch from Eliquis to heparin without bolus. Consult cardiology. 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 Continue with aspirin, statin. Repeat echocardiogram. Check A1c, lipid panel. (4) Acute renal failure superimposed on stage 2 chronic kidney disease: Baseline creatinine normal. On admission 2.4. High suspicion for cardiorenal syndrome. CT abdomen pelvis done shows possible bladder outlet obstruction because of enlarged prostate. Negative for renal calculi. Check urine lites. Mackey catheter as above. Medical reconciliation done for nephrotoxic drugs. (5) Acute exacerbation of chronic obstructive airways disease: Associated with suspected pulmonary fibrosis at baseline. Continue with oral prednisone 40 mg daily. DuoNebs every 6 hours, budesonide twice daily. Low suspicion of pneumonia for now. Azithromycin 500 mg daily for next 5 days. Procalcitonin negative. Oxygen supplementation keeping saturation over 88%. (6) Altered mental status: Baseline mentation unknown. Continue with BuSpar 5 mg 3 times daily, restart gabapentin 100 mg 3 times daily, risperidone 0.5 nightly, switching trazodone to venlafaxine 75 mg nightly. Frequent reorientation Avoid sedating medications (7) Hypertension: Goal blood pressure less than 140 over 90 mmHg. Continue to monitor blood pressures. Continue on home dose of metoprolol Qualifiers: Hypertension type: essential hypertension Qualified Code(s): I10 - Essential (primary) hypertension (8) Pulmonary embolism: Continue heparin drip Qualifiers: Pulmonary embolism type: unspecified Chronicity: chronic Acute cor p ulmonale presence: unspecified Qualified Code(s): I27.82 - Chronic pulmonary embolism (9) Type 2 diabetes mellitus: Hold OHA's. (10) CVA (cerebral vascular accident): Continue aspirin Continue statin (11) Hypothyroidism: Continue Synthroid (12) Anxiety and depression: Continue BuSpar Continue home Xanax as needed (13) Bladder outlet obstruction: Seen on CT abdomen pelvis. Check PSA. Mackey catheter. Plan Analgesia: Tylenol as needed Glycemic control: Lantus 20 units nightly, insulin sliding scale moderate protocol before meals and at bedtime Nutrition: Carb consistent diet CODE STATUS: Full code PUD prophylaxis: Protonix DVT prophylaxis: Heparin drip will suffice as DVT prophylaxis Discharge planning: Back to SNF once medically stable. Continue with care at [facility] with telemetry. This documentation was created by [employer] raiser helper software. Every effort was made to ensure accuracy of raiser helper. Any obvious errors or omissions should be clarified with the author of the document. Attestations Medical Necessity Statement*: Requires further hospitalization for management of non-ST elevation ME, KOKI in setting of bladder outlet obstruction, shortness of breath most likely secondary to diastolic congestive heart failure Coding Level of Care Code 05290 High MDM includes risk/complexity, reviewing previous or external records, reviewing test results, ordering lab/other test(s), independently interpretating test(s) (not separately recorded) and discussion of management or test(s) w/ other healthcare professional and High Time for a total of 60 minutes, includes reviewing past or interval history, examining/interviewing patient, placing orders, counseling patient/family/other support, updating patient/family/other support, discussing plan of care with staff, communicating with other healthcare providers, documenting encounter and coordinating care Diagnoses Hypoxia R09.02 Acute exacerbation of CHF (congestive heart failure) I50.9 NSTEMI (non-ST elevated myocardial infarction) I21.4 Acute renal failure superimposed on stage 2 chronic kidney disease N17.9; N18.2 Acute exacerbation of chronic obstructive airways disease J44.1 Altered mental status R41.82 Hypertension I10 Hypertension type: essential hypertension Pulmonary embolism I27.82 Pulmonary embolism type: unspecified Chronicity: chronic Acute cor pulmonale presence: unspecified Type 2 diabetes mellitus E11.9 CVA (cerebral vascular accident) I63.9 Hypothyroidism E03.9 Anxiety and depression F41.9; F32.9 Bladder outlet obstruction N32.0
[2022-12-19] MEDS: gabapentin 300 mg Capsule 100 MG PO (15:52)
--- NOTE | 2022-12-19 16:43 | PM.CONSULT ---
Providers/Reason For Consult Consulting Physician/Specialty*: Miguel Coats MD/ Cardiology Reason for Consult*: Troponin elevation Requesting Physician: Dr Cochran Attending Physician: Ayden Cochran MD Primary Care Provider: Dheeraj Gonzalez Jr, MD History of Present Illness History of Present Illness Agus Gillette is a 77 year old male with past medical history of coronary artery disease, CVA, hypothyroidism, pulmonary embolism, congestive heart failure, CKD presented to hospital with shortness of breath. Patient is a poor historian. He also had altered mental status at time of hospitalization. He uses 3 L oxygen at baseline. Now was requiring 5 L. EKG shows normal sinus rhythm with no significant ischemic changes. Patient also had KOKI on CKD. He is on anticoagulation with Eliquis. His initial troponin was over 500. It has not trended up significantly. Review of Systems Narrative: CONSTITUTIONAL: No fever chills weight loss or gain or night sweats. [] HEENT: Normocephalic, atraumatic.[] RESPIRATORY: No cough, sputum, hemoptysis or wheezing.[] CARDIOVASCULAR: Has shortness of breath GI: no nausea vomiting diarrhea. [] PLANT HEALTH MANAGER: No numbness, tingling, weakness or loss of function in any part of the body. [] MUSCULOSKELETAL: No knee or joint pain or rashes. [] Medications/Allergies Home Medications Medication Instructions Recorded Confirmed Last Taken Type apixaban 5 mg tablet (Eliquis) 5 mg PO BID #0 tabs 12/11/19 12/19/22 09/29/22 Rx aspirin 81 mg tablet,delayed 81 mg PO DAILY #0 tabs 12/11/19 12/19/22 09/29/22 Rx release bisacodyl 10 mg rectal suppository 10 mg WI DAILY PRN Constipation ##0 12/11/19 12/19/22 Unknown History magnesium hydroxide 400 mg/5 mL 30 ml PO DAILY PRN Constipation ##0 12/11/19 12/19/22 Unknown History oral suspension (Milk of Magnesia) sodium phosphates 19 gram-7 118 ml WI DAILY PRN Constipation 12/11/19 12/19/22 Unknown History gram/118 mL enema (Fleet Enema) ##0 acetaminophen 325 mg tablet 650 mg PO Q4H PRN Mild/Mod Pain Or 04/23/20 12/19/22 Unknown History Temp >/= 101 furosemide 40 mg tablet (Lasix) 40 mg PO QAM #90 tabs 07/27/20 12/19/22 09/29/22 Rx glipizide 2.5 mg tablet, extended 2.5 mg PO DAILY 07/27/20 12/19/22 09/29/22 History release 24 hr oxycodone-acetaminophen 5 mg-325 1 tab PO Q6H PRN pain 07/27/20 12/19/22 09/29/22 History mg tablet insulin detemir U-100 100 unit/mL 40 unit SUBCUT BEDTIME 07/05/22 12/19/22 09/28/22 History subcutaneous solution (Levemir U-100 Insulin) albuterol sulfate 2.5 mg/3 mL 2.5 mg inhalation Q4H PRN 09/26/22 12/19/22 Unknown History (0.083 %) solution for nebulization Shortness Of Breath budesonide-formoterol HFA 160 2 puff inhalation BID 09/26/22 12/19/22 09/29/22 History mcg-4.5 mcg/actuation aerosol inhaler (Symbicort) buspirone 5 mg tablet 10 mg PO TID 09/26/22 12/19/22 09/29/22 History colestipol 1 gram tablet 2 g PO DAILY 09/26/22 12/19/22 09/29/22 History levothyroxine 150 mcg tablet 150 mcg PO DAILY 09/26/22 12/19/22 09/29/22 History pantoprazole 40 mg tablet,delayed 40 mg PO DAILY 09/26/22 12/19/22 09/29/22 History release tizanidine 2 mg tablet 2 mg PO TID PRN Muscle Pain 09/26/22 12/19/22 09/26/22 History trazodone 100 mg tablet 150 mg PO BEDTIME 09/26/22 12/19/22 09/28/22 History metformin 1,000 mg tablet 1,000 mg PO BID 09/29/22 12/19/22 09/29/22 History duloxetine 60 mg capsule,delayed 60 mg PO BID 12/18/22 12/19/22 Unknown History release (Cymbalta) folic acid 1 mg tablet 1 mg PO DAILY 12/18/22 12/19/22 Unknown History hydroxyzine pamoate 25 mg capsule 25 mg PO Q8H PRN Anxiety 12/18/22 12/19/22 Unknown History (Vistaril) quetiapine 100 mg tablet (Seroquel) 100 mg PO DAILY 12/18/22 12/19/22 Unknown History atorvastatin 20 mg tablet 20 mg PO BEDTIME 12/19/22 12/19/22 Unknown History cyanocobalamin (vitamin B-12) 1,000 mcg PO DAILY 12/19/22 12/19/22 Unknown History 1,000 mcg tablet (Vitamin B-12) gabapentin 600 mg tablet 600 mg PO TID 12/19/22 12/19/22 Unknown History metoprolol succinate 25 mg 25 mg PO DAILY 12/19/22 12/19/22 Unknown History tablet,extended release 24 hr Allergies Allergy/AdvReac Type Severity Reaction Status Date / Time hydrocodone Allergy Unknown Unknown Verified 12/19/22 09:10 Penicillins Allergy Unknown Unknown Verified 12/19/22 09:10 valsartan Allergy Unknown Unknown Verified 12/19/22 09:10 simvastatin Allergy Unknown Verified 12/19/22 09:10 Current Medications Generic Name Dose Route Start Last Admin Trade Name Freq PRN Reason Stop Dose Admin Acetaminophen 650 mg 12/18/22 22:29 12/19/22 13:25 Acetaminophen 325 Mg Tablet PO 650 mg Q6H PRN Administration Mild/Mod Pain Or Temp >/= 101 Albuterol/Ipratropium 3 ml 12/19/22 00:00 12/19/22 15:52 Ipratropium-Albuterol 3 Ml Neb INHALATION 3 ml Q4H.RESPIRATORY TANIA Administration Alprazolam 0.5 mg 12/18/22 23:26 12/19/22 13:25 Alprazolam 0.5 Mg Tablet PO 0.5 mg TID PRN Administration Anxiety Apixaban 5 mg 12/19/22 09:00 12/19/22 08:37 Apixaban 5 Mg Tablet PO 5 mg BID TANIA Administration Aspirin 81 mg 12/19/22 09:00 12/19/22 08:37 Aspirin 81 Mg Ec Tablet PO 81 mg DAILY TANIA Administration Budesonide 0.5 mg 12/19/22 09:00 12/19/22 08:21 Budesonide 0.5 Mg/2 Ml Neb INHALATION 0.5 mg BID TANIA Administration Buspirone HCl 5 mg 12/19/22 09:00 12/19/22 15:52 Buspirone 10 Mg Tablet PO 5 mg TID TANIA Administration Fluticasone Propionate 1 spray 12/19/22 09:00 12/19/22 08:38 Fluticasone Nasal [place] 16gm Btl INTRANASAL 1 spray BID TANIA Administration Gabapentin 100 mg 12/19/22 15:00 12/19/22 15:52 Gabapentin 300 Mg Capsule PO 100 mg TID TANIA Administration Heparin Sodium/Sodium Chloride 25,000 unit in 500 mls @ 0 mls/hr 12/19/22 11:45 12/19/22 13:17 Heparin Drip IV 13.88 unit/kg/hr .Q0M TANIA 27 mls/hr Administration Protocol Per Protocol Insulin Human Lispro 0 unit 12/19/22 12:00 12/19/22 12:40 Insulin Lispro 100 Unit/1 Ml SUBCUT 12 unit WM&BEDTIME TANIA Administration Protocol Levothyroxine Sodium 150 mcg 12/19/22 09:00 12/19/22 08:37 Levothyroxine 150 Mcg Tablet PO 150 mcg DAILY TANIA Administration Metoprolol Succinate 50 mg 12/19/22 09:00 12/19/22 08:35 Metoprolol Succinate Er (24 Hr) 50 Mg Tablet PO 50 mg DAILY TANIA Administration Non-Formulary Medication 2 gm 12/19/22 09:00 12/19/22 08:39 Colestipol PO Not Given DAILY [facility] Pantoprazole Sodium 40 mg 12/19/22 09:00 12/19/22 08:[address] 40 Mg Tablet PO 40 mg DAILY TANIA Administration Prednisone 40 mg 12/19/22 06:00 12/19/22 05:07 Prednisone 20 Mg Tablet PO 40 mg QAM TANIA Administration Venlafaxine HCl 75 mg 12/19/22 09:00 12/19/22 08:36 Venlafaxine Er (24hr) 75 Mg Capsule PO 75 mg DAILY TANIA Administration PFSH Acute PFSH: Medical History Acute blood loss anemia KOKI (acute kidney injury) Chest pain Chronic kidney disease, stage II (mild) COPD (chronic obstructive pulmonary disease) Coronary artery disease CVA (cerebral vascular accident) Exertional shortness of breath GI bleed Hypertension Hypothyroidism Insomnia disorder Ischemic bowel disease Lower back pain Pulmonary embolism Small bowel obstruction Spinal cord stimulator status Systolic congestive heart failure Last echocardiogram November 2019: LVEF 55%, grade 2 diastolic dysfunction. Surgical History H/O cardiac catheterization H/O shoulder surgery History of ankle surgery History of right-sided carotid endarterectomy Hx of cholecystectomy Family History Denies family history of Lung disease Hypertension Social History Smoking and tobacco status: former smoker Alcohol intake: never Household members: other Details: [facility] of a [facility] Vitals/I&O/Wt Last Vital Signs Temp 98.2 F 12/19/22 11:41 Pulse 81 12/19/22 15:56 Resp 18 12/19/22 15:56 BP 126/67 12/19/22 11:41 Pulse Ox 94 12/19/22 15:56 O2 Del Method 12/19/22 15:56 O2 Flow Rate 3 12/19/22 15:56 12/19/22 12/19/22 12/19/22 06:59 14:59 22:59 Intake Total 60 / 60 740 / 740 Output Total Balance 59 / 59 740 / 740 Weight last 48 hrs Weight 214 lb 8 oz Weight 250 lb Physical Exam Narrative: GENERAL: Patient is alert, awake and oriented x2. [] NECK: No jugular vein distension. [] HEENT: No cyanosis. No icterus. No pallor. [] HEART: Regular S1 and S2. No murmur, rub or gallop. [] LUNGS: Clear to auscultate bilaterally. [] ABDOMEN: Soft CENTRAL NERVOUS SYSTEM: Grossly nonfocal. [] EXTREMITIES: Lower extremities with 1+ edema bilaterally. Data 12/19/22 04:53 12/19/22 04:53 Micro: Microbiology 12/19/22 12:10 Bacterial Antigens - Final Urine Kidney 12/19/22 12:10 Legionella Urinary Antigen - Final Urine,Voided 12/18/22 21:23 Blood Culture - Preliminary Blood SPECIMEN COLLECTED 12/18/22 21:21 Blood Culture - Preliminary Blood SPECIMEN COLLECTED A&P Assessment and plan (1) NSTEMI (non-ST elevated myocardial infarction): (2) Type 2 diabetes mellitus: (3) Acute exacerbation of CHF (congestive heart failure): (4) Acute exacerbation of chronic obstructive airways disease: (5) Acute renal failure superimposed on stage 2 chronic kidney disease: (6) Hypertension: Qualifiers: Hypertension type: essential hypertension Qualified Code(s): I10 - Essential (primary) hypertension (7) CVA (cerebral vascular accident): (8) Pulmonary embolism: Qualifiers: Pulmonary embolism type: unspecified Chronicity: chronic Acute cor pulmonale presence: unspecified Qualified Code(s): I27.82 - Chronic pulmonary embolism Plan Patient is a [facility] resident and has presented with worsening shortness of breath. His initial troponin was elevated however has not significantly trended up. Echocardiogram is pending. Continue NSTEMI medical therapy with dual antiplatelet therapy and anticoagulation. I had a detailed discussion with patient regarding possibility of invasive angiogram if kidney function normalizes. He is confused. He tells me he just wants to [facility] back to [facility]. We can continue medical therapy. ECHO ordered and is pending Continue IV diuretics Thank you for involving us with care of this patient. We will continue to follow. Please call with questions. Consult Attestations Medical Necessity Statement: Care expected to cross 2 midnights. Coding Level of Care Code Acute Code for [facility] Diagnoses NSTEMI (non-ST elevated myocardial infarction) I21.4 Type 2 diabetes mellitus E11.9 Acute exacerbation of CHF (congestive heart failure) I50.9 Acute exacerbation of chronic obstructive airways disease J44.1 Acute renal failure superimposed on stage 2 chronic kidney disease N17.9; N18.2 Hypertension I10 Hypertension type: essential hypertension CVA (cerebral vascular accident) I63.9 Pulmonary embolism I27.82 Pulmonary embolism type: unspecified Chronicity: chronic Acute cor pulmonale presence: unspecified
--- NOTE | 2022-12-19 16:47 | ECG_ITS ---
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 Measurements Intervals [place] Rate: 82 P: -44 WA: 360 QRS: 0 QRSD: 122 T: 157 QT: 381 QTc: 446 Interpretive Statements SINUS rhyth,, baseline artifact INFERIOR MYOCARDIAL INFARCTION , PROBABLY OLD [40+ ms Q WAVE AND/OR ST/T ABNORMALITY IN II/aVF] MODERATE T-WAVE ABNORMALITY, CONSIDER LATERAL ISCHEMIA [-0.1+ mV T-WAVE IN I/aVL/V5/V6] Compared to ECG 12/19/2022 13:52:37 Myocardial infarct finding now present T-wave abnormality still present Possible ischemia still present Electronically Signed On 12-20-2022 7:10:43 MANAGER PHILOSOPHY by Miguel Coats M.D. [id number]
[2022-12-19 16:53] LABS: Glucose Point of Care 204 mg/dL (70-110)
[2022-12-19] MEDS: ferrous gluconate 324 mg Tablet PO (17:28)
[2022-12-19 17:38] LABS: Prostate Specific Antigen 0.733 ng/mL (0-4)
[2022-12-19 18:33] LABS: Troponin 5 6HR 528.8 ng/L (0-15); Troponin 5 6HR Delta 17.8 ng/L (0-12)
--- NOTE | 2022-12-19 19:28 | PC.NURSE ---
Patient resting in bed with bed alarm on as patient is impulsive and confused, VScarroll Saha placed during shift, daughter called and updated. Room clean and clutter free with call light within reach and frequent rounding. Patient had SOB early in shift physician notified and orders placed.
[2022-12-19 19:30] LABS: Partial Thromboplastin Time > 250.0 SECONDS (23.9-36.7)
--- NOTE | 2022-12-19 19:37 | PC.NURSE ---
HEPARIN GTT PTT resulted as >250. Heparin gtt stopped and orders received from Dr Cota for further management
[2022-12-19] MEDS: atorvastatin 40 mg Tablet 20 MG PO (20:33)
[2022-12-19] MEDS: risperiDONE 0.25 mg Tablet 0.5 MG PO (20:34)
[2022-12-19] MEDS: insulin glargine 100 units/1 mL 20 UNIT SUBCUT (20:34)
[2022-12-19] MEDS: gabapentin 100 mg Capsule PO (21:02)
[2022-12-19 22:09] LABS: Partial Thromboplastin Time 122.6 SECONDS (23.9-36.7)
--- NOTE | 2022-12-19 22:34 | PC.NURSE ---
BARRETT Pt was heard yelling out loudly. Has been very confused tonight and somewhat agitated. Looking for his things from his room. When entered room he was holding his penis and c/o severe pain. Wanted us to cut it out referring to Barrett. Upon examination balloon was felt to be inflated in the penis shaft. Barrett was removed with pain relief. Barrett was reinserted without difficulty. Urine was bloody and small amt blood dripped from penis. Barrett was gently easily irrigated with NS and return of pink fluid without clots. Will monitor for further need of irrigation. Pt c/o tenderness but no further pain.
[2022-12-19 23:40] LABS: Partial Thromboplastin Time 40.5 SECONDS (23.9-36.7)
[2022-12-20] VITALS (10 sets, daily range): BP systolic 105–178; BP diastolic 64–98; PULSE 69–90; RESP 16–20; TEMP 36.3–36.6; O2SAT 88–98
[2022-12-20] MEDS: oxyCODONE-APAP 5-325 mg Tablet 1 TAB PO ×2 (02:15→11:46)
[2022-12-20] MEDS: heparin drip 25,000 UNIT/500 ML PREMIX 23 UNIT IV (03:21)
[2022-12-20] MEDS: ipratropium-albuterol 3 mL Neb INHALATION ×4 (04:53→16:21)
[2022-12-20] MEDS: predniSONE 20 mg Tablet 40 MG PO (05:11)
[2022-12-20 05:12] LABS: Basophils % 0.2 %; Eosinophils % 0.1 %; Hematocrit 31.5 % (42.0-52.0); Lymphocytes # 1.6 10^3/uL (0.8-4.8); Lymphocytes % 8.3 %; Mean Corpuscular HGB Conc 28.6 g/dL (30.0-36.0); Mean Corpuscular Hemoglobin 19.8 pg (28.0-34.0); Mean Corpuscular Volume 69.2 fl (80-94); Mean Platelet Volume 9.6 fL (7.4-10.4); Monocytes # 1.6 10^3/uL (0.2-0.9); Monocytes % 8.4 %; Neutrophils # 15.86 10^3/uL (1.8-7.7); Neutrophils % 82.3 %; Nucleated Red Blood Cells # 0.1 /100WBC; Nucleated Red Blood Cells % 0.4 %; Platelet Count 511 10^3/cmm (130-400); Red Blood Count 4.55 10^6/uL (4.1-5.3); Red Cell Distribution Width 17.9 % (12.1-15.1); White Blood Count 19.2 10^3/uL (4.0-10.0)
[2022-12-20 05:30] LABS: Estmated Average Glucose 128; Hemoglobin A1C 6.1 % (4.0-6.0)
[2022-12-20 05:35] LABS: Partial Thromboplastin Time 80.1 SECONDS (23.9-36.7)
[2022-12-20 05:38] LABS: Alanine Aminotransferase 20 U/L (0-41); Albumin Level 3.9 g/dL (3.5-5.2); Alkaline Phosphatase 55 U/L (40-130); Aspartate Amino Transferase 37 U/L (0-40); Chloride 97 mmol/L (98-107); Chol HDL Ratio 2.39 mg/dL (1.0-5.00); Cholesterol 86 mg/dL (0-200); HDL Cholesterol 36 mg/dL (60-100); LDL Cholesterol Calculated 32 mg/dL (50-129); Potassium 4.9 mmol/L (3.5-5.1); Sodium 135 mmol/L (136-145); Triglycerides 88 mg/dL (0-150); VLDL Cholestrol Calculation 18 mg/dL (0-30)
[2022-12-20 05:51] LABS: Anion Gap 16.9 (5-19); Blood Urea Nitrogen 44 mg/dL (8-23); Calcium 8.6 mg/dL (8.5-10.5); Carbon Dioxide 26 mmol/L (22-29); Globulin 3.8 g/dL (1.3-4.6); Glucose 191 mg/dL (65-115); Osmolality Calculated 296 mOsm/kg (285-295); Total Protein 7.7 g/dL (6.6-8.7)
--- NOTE | 2022-12-20 06:49 | PC.NURSE ---
SHIFT SUMMARY Has been very confused all shift. Has not slept a minute. Gets up OOB every few minutes and wants to go to his real room Lookig for his things. Mackey has remained intact after pulling it out at start of the night. Urine is blood tinged but is draining well without clots noted. Did irrigate gently couple of times to make sure no clots. Has had small amt of bleeding from meatus. Pulled IV out and was restarted. Heparin Drip infusing. O2 in place but has taken it off numerous times through the night. Refusing to keep vehicle monitor technician on.
--- NOTE | 2022-12-20 08:08 | PM.PN ---
Subjective Subjective: Patient denies chest pain. Says shortness of breath has improved significantly. Wants medical therapy. Also says [facility]. Vitals/I&O/Wt Last Vital Signs Temp 97.4 F L 12/20/22 04:00 Pulse 72 12/20/22 04:55 Resp 16 12/20/22 04:55 BP 126/69 12/20/22 04:00 Pulse Ox 95 12/20/22 04:55 O2 Del Method 12/20/22 04:55 O2 Flow Rate 3 12/20/22 04:55 12/19/22 12/20/22 12/20/22 22:59 06:59 14:59 Intake Total 1220 / 1960 425.317 / 2385.317 Output Total 1200 / 1200 500 / 1700 Balance 20 / 760 -74.683 / 685.317 Weight last 48 hrs Weight 210 lb 6.4 oz Weight 214 lb 8 oz Weight 250 lb Physical Exam Narrative: GENERAL: Patient is alert, awake and oriented x2. [] NECK: No jugular vein distension. [] HEENT: No cyanosis. No icterus. No pallor. [] HEART: Regular S1 and S2. No murmur, rub or gallop. [] LUNGS: Clear to auscultate bilaterally. [] ABDOMEN: Soft CENTRAL NERVOUS SYSTEM: Grossly nonfocal. [] EXTREMITIES: Lower extremities with 1+ edema bilaterally. Urinary Catheter Management: Mackey: Cath Placed During This Visit: yes Reason for Continuing Indwelling Catheter: Acute Urinary Retention or Obstruction Urinary Catheter Date of Insertion: 12/19/22 Urinary Catheter Time of Insertion: 15:30 Data 12/20/22 05:03 12/20/22 05:03 Micro: Microbiology 12/18/22 21:23 Blood Culture - Preliminary Blood NEGATIVE TO DATE 12/18/22 21:21 Blood Culture - Preliminary Blood NEGATIVE TO DATE 12/19/22 12:10 Bacterial Antigens - Final Urine Kidney 12/19/22 12:10 Legionella Urinary Antigen - Final Urine,Voided A&P Assessment and plan (1) NSTEMI (non-ST elevated myocardial infarction): (2) Type 2 diabetes mellitus: (3) Acute exacerbation of CHF (congestive heart failure): (4) Acute exacerbation of chronic obstructive airways disease: (5) Acute renal failure superimposed on stage 2 chronic kidney disease: (6) Hypertension: Qualifiers: Hypertension type: essential hypertension Qualified Code(s): I10 - Essential (primary) hypertension (7) CVA (cerebral vascular accident): (8) Pulmonary embolism: Qualifiers: Pulmonary embolism type: unspecified Chronicity: chronic Acute cor pulmonale presence: unspecified Qualified Code(s): I27.82 - Chronic pulmonary embolism Plan [facility] is a [facility] and has presented with worsening shortness of breath. His initial troponin was elevated however has not significantly trended up. Echo shows LV systolic function is moderately reduced. Continue NSTEMI medical therapy with dual antiplatelet therapy and anticoagulation. Given patient's comorbidities, his wishes to go back to jail and not stay in the hospital and no chest pain, we can continue with medical therapy. Patient tells me he will consider a procedure if it can be done at the jail. Continue IV diuretics Thank you for involving us with care of this patient. We will continue to follow. Please call with questions. Attestations Medical Necessity Statement*: Care expected to cross 2 midnights. Coding Level of Care Code Acute Code for [facility] Diagnoses NSTEMI (non-ST elevated myocardial infarction) I21.4 Type 2 diabetes mellitus E11.9 Acute exacerbation of CHF (congestive heart failure) I50.9 Acute exacerbation of chronic obstructive airways disease J44.1 Acute renal failure superimposed on stage 2 chronic kidney disease N17.9; N18.2 Hypertension I10 Hypertension type: essential hypertension CVA (cerebral vascular accident) I63.9 Pulmonary embolism I27.82 Pulmonary embolism type: unspecified Chronicity: chronic Acute cor pulmonale presence: unspecified
[2022-12-20] MEDS: budesonide 0.5 mg/2 mL Neb INHALATION (08:22)
[2022-12-20] MEDS: ferrous gluconate 324 mg Tablet PO ×2 (08:50→17:24)
[2022-12-20] MEDS: BuSPIRONE 10 mg Tablet 5 MG PO ×3 (08:50→23:18)
[2022-12-20] MEDS: metoprolol succinate ER (24 HR) 50 mg Tablet PO (08:50)
[2022-12-20] MEDS: gabapentin 100 mg Capsule PO ×3 (08:51→23:17)
[2022-12-20] MEDS: venlafaxine ER (24HR) 75 mg Capsule PO (08:51)
[2022-12-20] MEDS: levothyroxine 150 mcg Tablet PO (08:51)
[2022-12-20] MEDS: pantoprazole DR 40 mg Tablet PO (08:51)
[2022-12-20] MEDS: aspirin 81 mg EC Tablet PO (08:51)
--- NOTE | 2022-12-20 08:51 | PC.NURSE ---
This nurse is assuming care of patient, patient is sitting side of bed, refusing telemetry monitoring, AAOx1 oriented to name only. Patient trying to pull out hodges. Have a sitter at bedside now. VSS on RA, Room clean and clutter free with call light in reach. Patient had to be calmed down by staff as he states, you all are making everything up for that money. Heparin gtt currently running per protocol.
[2022-12-20] MEDS: fluticasone nasal spray 16gm Btl 1 SPRAY INTRANASAL ×2 (08:52→17:24)
[2022-12-20 09:15] LABS: Glucose Point of Care 238 mg/dL (70-110)
[2022-12-20] MEDS: insulin lispro 100 unit/1 mL SUBCUT ×4 (09:20→23:34)
[2022-12-20] MEDS: FUROsemide 10 mg/mL SDV 4mL 40 MG IVP ×2 (10:06→17:24)
--- NOTE | 2022-12-20 10:25 | PC.CHAP ---
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 funeral service apprentice visit [] Patient/Family/Request visit [] Outpatient visit [] Follow-up visit [] Physician referral [] Code/Alert [x] Routine visit [] Staff referral [] Actively dying [] Patient sleeping [] Family support [] [] Out of room [] Palliative care [] [] Receiving care in room [] Pre-surgical visit [] Trauma [] Long length of stay [] ICU visit [] Other: Relational/Emotional Strength [x] Patient feels connected with others/family/visitors/staff [] Distress [] Loneliness/isolation [] Abandonment Spirituality of Patient [x] Person of Ameena [] Attends Taoist of their Ameena [x] Believes in Prayer [] Reads Bible or Anabaptist materials [] There are Spiritual issues to be addressed Field Producer Interventions [x] Prayer [] Active listening [] Non-anxious presence [] Spiritual/emotional support [] Crisis/trauma care [] Spiritual counseling [] Bereavement support [] Provided bereavement packet [] Provided Bible/devotional materials [] Provided toy/stuffed animal, coloring book to patient or family member [] Provided Communion [] Anointing/[place] [] Salvation [x] Completed spiritual assessment [] Other: Impact on Illness or Injury [] Angry [] Fearful [] Anxious [] Often cries [] Exhaustion [] Unable to work [] Unable to attend yazidism [] Unable to walk/stand [] Unable to read [] Unable to drive [] Unable to eat/drink [] Unable to sleep [] Unable to be with family [] Patient intubated [] Other: Summary Time spent with patient 10 min
[2022-12-20] MEDS: ALPRAZolam 0.5 mg Tablet PO ×2 (11:46→20:39)
[2022-12-20 11:49] LABS: Glucose Point of Care 220 mg/dL (70-110)
[2022-12-20 12:33] LABS: Partial Thromboplastin Time 48.6 SECONDS (23.9-36.7)
--- NOTE | 2022-12-20 16:20 | P.PN_ITS ---
Subjective Subjective: Today morning patient seen with sitter at bedside. Overnight patient had pulled out Mackey catheter after which he had hematuria. Currently getting manually irrigated. Urine seems to be clearing up. Patient is on heparin drip. Seen with family at bedside. Also had patient's DPOA/daughter Joyce over the phone. We discussed that patient came in with shortness of breath and acute kidney injury in setting of obstructive nephropathy and ACS leading to congestive heart failure. We discussed need for longer hospitalization, requirement of medical management of ACS and IV diuresis for congestive heart failure. Patient verbalized understanding and is agreeable to stay but is emotional and tearful and wants his things from the senior care so he can be occupied. Patient is AOx3. Vitals/I&O/Wt Last Vital Signs Temp 97.6 F 12/20/22 08:00 Pulse 74 12/20/22 12:17 Resp 18 12/20/22 12:17 BP 178/98 12/20/22 11:36 Pulse Ox 88 L 12/20/22 12:17 O2 Del Method 12/20/22 12:17 O2 Flow Rate 3 12/20/22 04:55 12/20/22 12/20/22 12/20/22 06:59 14:59 22:59 Intake Total 425.317 / 2385.317 862.45 / 862.45 Output Total 500 / 1700 Balance -74.683 / 685.317 862.45 / 862.45 Weight last 48 hrs Weight 95.436 kg Weight 97.296 kg Weight 113.398 kg Physical Exam Narrative: General: No acute distress, AOx3, tearful Head: Normocephalic. Atraumatic. EOM intact. Neck: No JVD. Cardiovascular: RRR. No gallops. No murmurs. No peripheral edema. Lungs: Breath sounds are diminished in bilateral bases. Very faint end expiratory wheezing. no use of accessory muscles, no crackles. Skin: No jaundice. No rashes. Abdomen: Normal bowel sounds, abdomen soft and nontender. Extremities: No cyanosis or clubbing. Musculoskeletal: Noo swollen or erythematous joints. Neurological: Moves all 4 extremities. No myoclonus. Urinary Catheter Management: Mackey: Cath Placed During This Visit: yes Reason for Continuing Indwelling Catheter: Acute Urinary Retention or Obstruction Urinary Catheter Date of Insertion: 12/19/22 Urinary Catheter Time of Insertion: 15:30 Data 12/20/22 05:03 12/20/22 05:03 Micro: Microbiology 12/19/22 12:10 MRSA Culture - Final Nose 12/18/22 21:23 Blood Culture - Preliminary Blood NEGATIVE TO DATE 12/18/22 21:21 Blood Culture - Preliminary Blood NEGATIVE TO DATE 12/19/22 12:10 Bacterial Antigens - Final Urine Kidney 12/19/22 12:10 Legionella Urinary Antigen - Final Urine,Voided A&P Assessment and plan (1) Hypoxia: Acute on chronic hypoxia. Baseline oxygen requirement of 3 L while sleeping Most likely secondary to congestive heart failure exacerbation and COPD exacerbation. (2) Acute exacerbation of CHF (congestive heart failure): New echocardiogram done shows an EF of 35 to 40%, moderate global LV hypokinesia, severely hypokinetic inferior wall, mild aortic stenosis with gradient of 7 mmHg, mildly dilated LA. Strict input output charting. IV Lasix 40 mg every 12 hourly. Mackey catheter. Daily weights. (3) NSTEMI (non-ST elevated myocardial infarction): Appreciate cardiology recommendations. 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 Continue with aspirin, statin. Appreciate A1c, lipid panel. (4) Acute renal failure superimposed on stage 2 chronic kidney disease: Baseline creatinine normal. Most likely in setting of obstructive nephropathy from bladder outlet obstruction and cardiorenal syndrome. Creatinine trending down to 1.5. Continue with Mackey catheterization. Medical reconciliation done for nephrotoxic drugs. (5) Acute exacerbation of chronic obstructive airways disease: Associated with suspected pulmonary fibrosis at baseline. Continue with oral prednisone 40 mg daily for overall 5 days. DuoNebs every 6 hours, budesonide twice daily. Low suspicion of pneumonia for now. Azithromycin 500 mg daily for next 5 days. Procalcitonin negative. Oxygen supplementation keeping saturation over 88%. (6) Altered mental status: Baseline mentation unknown. Continue with BuSpar 5 mg 3 times daily, restart gabapentin 100 mg 3 times daily, risperidone 0.5 nightly, switching trazodone to venlafaxine 75 mg nightly. Frequent reorientation Avoid sedating medications. Sitter at bedside. (7) Hypertension: Goal blood pressure less than 140 over 90 mmHg. Continue to monitor blood pressures. Continue on home dose of metoprolol Qualifiers: Hypertension type: essential hypertension Qualified Code(s): I10 - Essential (primary) hypertension (8) Pulmonary embolism: Chronic. Continue heparin drip Qualifiers: Pulmonary embolism type: unspecified Chronicity: chronic Acute cor pulmonale presence: unspecified Qualified Code(s): I27.82 - Chronic pulmonary embolism (9) Type 2 diabetes mellitus: Hold OHA's. (10) CVA (cerebral vascular accident): Continue aspirin Continue statin (11) Hypothyroidism: Continue Synthroid (12) Anxiety and depression: Continue BuSpar Continue home Xanax as needed (13) Bladder outlet obstruction: Seen on CT abdomen pelvis. Check PSA. Mackey catheter. Plan Analgesia: Tylenol as needed Glycemic control: Lantus 20 units nightly, insulin sliding scale moderate protocol before meals and at bedtime Nutrition: Carb consistent diet CODE STATUS: Discussed in detail with patient and patient's daughter over the phone. Full code. PUD prophylaxis: Protonix DVT prophylaxis: Heparin drip will suffice as DVT prophylaxis Discharge planning: Back to SNF once medically stable. Continue with care at [facility] with telemetry. Care discussed in detail with patient's DPOA/daughter over the phone. This documentation was created by [employer] museum informatics specialist software. Every effort was made to ensure accuracy of museum informatics specialist. Any obvious errors or omissions should be clarified with the author of the document. Attestations Medical Necessity Statement*: Require further hospitalization for management of non-ST elevation MS, congestive systolic heart failure, hematuria, obstruc tive nephropathy in setting of bladder outlet obstruction Coding Level of Care Code 50677 Moderate MDM includes risk/complexity, reviewing previous or external records, reviewing test results, ordering lab/other test(s), speaking with independent historian (other than patient), independently interpretating test(s) (not separately recorded) and discussion of management or test(s) w/ other healthcare professional and High Time for a total of 60 minutes, includes reviewing past or interval history, examining/interviewing patient, placing orders, counseling patient/family/other support, updating patient/family/other support, discussing plan of care with staff, communicating with other healthcare providers, documenting encounter and coordinating care Diagnoses Hypoxia R09.02 Acute exacerbation of CHF (congestive heart failure) I50.9 NSTEMI (non-ST elevated myocardial infarction) I21.4 Acute renal failure superimposed on stage 2 chronic kidney disease N17.9; N18.2 Acute exacerbation of chronic obstructive airways disease J44.1 Altered mental status R41.82 Hypertension I10 Hypertension type: essential hypertension Pulmonary embolism I27.82 Pulmonary embolism type: unspecified Chronicity: chronic Acute cor pulmonale presence: unspecified Type 2 diabetes mellitus E11.9 CVA (cerebral vascular accident) I63.9 Hypothyroidism E03.9 Anxiety and depression F41.9; F32.9 Bladder outlet obstruction N32.0
[2022-12-20] MEDS: azithromycin 250 mg Tablet 500 MG PO (17:23)
[2022-12-20] MEDS: quetiapine 100 mg Tablet PO (17:24)
[2022-12-20 17:39] LABS: Glucose Point of Care 150 mg/dL (70-110)
[2022-12-20] MEDS: haloperidol inj 5 mg/mL INJ 1 mL IM ×2 (18:20→21:02)
[2022-12-20 19:12] LABS: Partial Thromboplastin Time 30.9 SECONDS (23.9-36.7)
[2022-12-20 21:48] LABS: Glucose Point of Care 187 mg/dL (70-110)
[2022-12-20] MEDS: trazodone 150 mg Tablet PO (23:16)
[2022-12-20] MEDS: insulin glargine 100 units/1 mL 20 UNIT SUBCUT (23:34)
[2022-12-21] VITALS (73 sets, daily range): BP systolic 90–157; BP diastolic 50–96; PULSE 56–85; RESP 10–26; TEMP 35.8–36.9; O2SAT 84–99; BMI 30.2
[2022-12-21] MEDS: ipratropium-albuterol 3 mL Neb INHALATION ×7 (01:05→23:14)
[2022-12-21 02:11] LABS: Basophils % 0.2 %; Eosinophils # 0.1 10^3/uL (0.0-0.8); Eosinophils % 0.4 %; Hematocrit 31.1 % (42.0-52.0); Hemoglobin 8.8 g/dL (11.7-16.6); Lymphocytes # 2.3 10^3/uL (0.8-4.8); Lymphocytes % 17.7 %; Mean Corpuscular HGB Conc 28.3 g/dL (30.0-36.0); Mean Corpuscular Hemoglobin 19.6 pg (28.0-34.0); Mean Corpuscular Volume 69.3 fl (80-94); Mean Platelet Volume 9.9 fL (7.4-10.4); Monocytes # 1.3 10^3/uL (0.2-0.9); Monocytes % 10.1 %; Neutrophils % 71.1 %; Nucleated Red Blood Cells # 0.1 /100WBC; Nucleated Red Blood Cells % 0.5 %; Platelet Count 476 10^3/cmm (130-400); Red Blood Count 4.49 10^6/uL (4.1-5.3); Red Cell Distribution Width 17.6 % (12.1-15.1); White Blood Count 13.1 10^3/uL (4.0-10.0)
[2022-12-21 02:55] LABS: Partial Thromboplastin Time 52.3 SECONDS (23.9-36.7)
[2022-12-21 03:04] LABS: Alanine Aminotransferase 24 U/L (0-41); Albumin Level 3.8 g/dL (3.5-5.2); Alkaline Phosphatase 58 U/L (40-130); Anion Gap 15.1 (5-19); Aspartate Amino Transferase 35 U/L (0-40); Blood Urea Nitrogen 43 mg/dL (8-23); Calcium 8.6 mg/dL (8.5-10.5); Carbon Dioxide 30 mmol/L (22-29); Chloride 99 mmol/L (98-107); Globulin 3.8 g/dL (1.3-4.6); Glucose 116 mg/dL (65-115); Osmolality Calculated 302 mOsm/kg (285-295); Potassium 4.1 mmol/L (3.5-5.1); Sodium 140 mmol/L (136-145); Total Protein 7.6 g/dL (6.6-8.7)
--- NOTE | 2022-12-21 04:38 | PC.NURSE ---
Patient has rested since arrival on unit @0040. Precedex not started as patient has been calm and asleep and HR of 55-65bpm. Heparin drip running per protocol.
[2022-12-21] MEDS: heparin drip 25,000 UNIT/500 ML PREMIX 25 UNIT IV (06:27)
[2022-12-21 06:53] LABS: Glucose Point of Care 136 mg/dL (70-110)
[2022-12-21] MEDS: budesonide 0.5 mg/2 mL Neb INHALATION ×2 (07:51→20:33)
--- NOTE | 2022-12-21 08:05 | PM.PN ---
Subjective Subjective: Patient is stable. Vitals/I&O/Wt Last Vital Signs Temp 96.5 F L 12/21/22 05:20 Pulse 66 12/21/22 07:55 Resp 16 12/21/22 07:45 BP 120/65 12/21/22 06:25 Pulse Ox 95 12/21/22 07:45 O2 Del Method 12/21/22 07:45 O2 Flow Rate 3 12/21/22 07:45 12/20/22 12/21/22 12/21/22 22:59 06:59 14:59 Intake Total 400 / 1262.45 298.9 / 1561.35 Output Total 1800 / 1800 1300 / 3100 Balance -1400 / -537.55 -1001.1 / -1538.65 Weight last 48 hrs Weight 210 lb 6.4 oz Weight 210 lb 6.4 oz Physical Exam Narrative: GENERAL: Patient is alert, awake and oriented x2. [] NECK: No jugular vein distension. [] HEENT: No cyanosis. No icterus. No pallor. [] HEART: Regular S1 and S2. No murmur, rub or gallop. [] LUNGS: Clear to auscultate bilaterally. [] ABDOMEN: Soft CENTRAL NERVOUS SYSTEM: Grossly nonfocal. [] EXTREMITIES: Lower extremities with 1+ edema bilaterally. Urinary Catheter Management: Mackey: Cath Placed During This Visit: yes Reason for Continuing Indwelling Catheter: Accurate Measurement of Urinary Output in Critically Ill Patients Urinary Catheter Date of Insertion: 12/19/22 Urinary Catheter Time of Insertion: 15:30 Data 12/21/22 02:05 12/21/22 02:05 Micro: Microbiology 12/19/22 12:10 MRSA Culture - Final Nose A&P Assessment and plan (1) NSTEMI (non-ST elevated myocardial infarction): (2) Type 2 diabetes mellitus: (3) Acute exacerbation of CHF (congestive heart failure): (4) Acute exacerbation of chronic obstructive airways disease: (5) Acute renal failure superimposed on stage 2 chronic kidney disease: (6) Hypertension: Qualifiers: Hypertension type: essential hypertension Qualified Code(s): I10 - Essential (primary) hypertension (7) CVA (cerebral vascular accident): (8) Pulmonary embolism: Qualifiers: Pulmonary embolism type: unspecified Chronicity: chronic Acute cor pulmonale presence: unspecified Qualified Code(s): I27.82 - Chronic pulmonary embolism Plan Patient is stable. continue medical therapy. Thank you for involving us with care of this patient. We will continue to follow. Please call with questions. Attestations Medical Necessity Statement*: Care expected to cross 2 midnights. Coding Level of Care Code Acute Code for [facility] Fwd Diagnoses NSTEMI (non-ST elevated myocardial infarction) I21.4 Type 2 diabetes mellitus E11.9 Acute exacerbation of CHF (congestive heart failure) I50.9 Acute exacerbation of chronic obstructive airways disease J44.1 Acute renal failure superimposed on stage 2 chronic kidney disease N17.9; N18.2 Hypertension I10 Hypertension type: essential hypertension CVA (cerebral vascular accident) I63.9 Pulmonary embolism I27.82 Pulmonary embolism type: unspecified Chronicity: chronic Acute cor pulmonale presence: unspecified
[2022-12-21] MEDS: predniSONE 20 mg Tablet 40 MG PO (08:17)
[2022-12-21] MEDS: aspirin 81 mg EC Tablet PO (08:18)
[2022-12-21] MEDS: pantoprazole DR 40 mg Tablet PO (08:18)
[2022-12-21] MEDS: azithromycin 250 mg Tablet 500 MG PO (08:18)
[2022-12-21] MEDS: venlafaxine ER (24HR) 75 mg Capsule PO (08:18)
[2022-12-21] MEDS: quetiapine 100 mg Tablet PO (08:18)
[2022-12-21] MEDS: metoprolol succinate ER (24 HR) 50 mg Tablet PO (08:18)
[2022-12-21] MEDS: BuSPIRONE 10 mg Tablet 5 MG PO ×2 (08:18→15:43)
[2022-12-21] MEDS: levothyroxine 150 mcg Tablet PO (08:18)
[2022-12-21] MEDS: ferrous gluconate 324 mg Tablet PO ×2 (08:18→17:35)
[2022-12-21] MEDS: gabapentin 100 mg Capsule PO (08:18)
[2022-12-21] MEDS: fluticasone nasal spray 16gm Btl 1 SPRAY INTRANASAL ×2 (08:19→17:37)
[2022-12-21] MEDS: FUROsemide 10 mg/mL SDV 4mL 40 MG IVP ×2 (08:28→17:40)
--- NOTE | 2022-12-21 09:02 | PC.NURSE ---
Patient became violently agressive at 2044 and was swinging and kicking at nursing staff. Soft protective devices put on patient and order received to give a dose of Haldol IM. Patient was able to take most of his evening medications later in the shift. He calmed down after receiving Haldol and taking his buspar, neurontin and trazadone. Patient transferred to ICU via bed with oxygen at 4LNC and soft protective devices on. Passive ROM had been done every 2 hours with no deficits prior to transfer. Report was given to Jose HERNANDEZ prior to transfer.
[2022-12-21 10:13] LABS: Partial Thromboplastin Time 69.2 SECONDS (23.9-36.7)
[2022-12-21 11:11] LABS: Glucose Point of Care 254 mg/dL (70-110)
[2022-12-21] MEDS: insulin lispro 100 unit/1 mL SUBCUT ×3 (12:11→21:15)
[2022-12-21] MEDS: duloxetine 60 mg Capsule PO ×2 (12:13→17:35)
--- NOTE | 2022-12-21 15:03 | PC.NURSE ---
MAR delays: Cymbalta administered close to lunch, delay related to pt resting soundly with eyes closed. 1500 meds, Gabapentin and Buspar will be admin as close to 1500 as possible while pt resting so soundly.
--- NOTE | 2022-12-21 15:29 | P.PN_ITS ---
Subjective Subjective: Seen multiple times in the day. Overnight patient was agitated pulling at his IV lines and trying to get up out of bed hence was transferred to ICU for Precedex drip. Precedex drip was not started given bradycardia. Patient received 2 doses of Haldol with last dose yesterday in the evening at around 8 PM. Today morning patient is laying comfortably in bed. Wakes up to verbal stimulus. Has remained hemodynamically stable and afebrile. Denies any chest pain. States shortness of breath is improved quite a bit. Vitals/I&O/Wt Last Vital Signs Temp 97.5 F L 12/21/22 14:00 Pulse 62 12/21/22 15:00 Resp 15 12/21/22 15:00 BP 98/55 12/21/22 15:00 Pulse Ox 94 12/21/22 15:00 O2 Del Method 12/21/22 15:00 O2 Flow Rate 3 12/21/22 15:00 12/21/22 12/21/22 12/21/22 06:59 14:59 22:59 Intake Total 298.9 / 1561.35 230 / 230 Output Total 1300 / 3100 225 / 225 Balance -1001.1 / -1538.65 5 / 5 Weight last 48 hrs Weight 95.436 kg Weight 95.436 kg Physical Exam Narrative: General: No acute distress, AOx3, less agitated, calm, fidgety, occ asionally trying to get out of bed Head: Normocephalic. Atraumatic. EOM intact. Neck: No JVD. Cardiovascular: RRR. No gallops. No murmurs. No peripheral edema. Lungs: Breath sounds are diminished in bilateral bases. Very faint end expiratory wheezing. no use of accessory muscles, no crackles. Skin: No jaundice. No rashes. Abdomen: Normal bowel sounds, abdomen soft and nontender. Extremities: No cyanosis or clubbing. Musculoskeletal: Noo swollen or erythematous joints. Neurological: Moves all 4 extremities. No myoclonus. Urinary Catheter Management: Mackey: Cath Placed During This Visit: yes Reason for Continuing Indwelling Catheter: Accurate Measurement of Urinary Output in Critically Ill Patients Urinary Catheter Date of Insertion: 12/19/22 Urinary Catheter Time of Insertion: 15:30 Data 12/21/22 02:05 12/21/22 02:05 Micro: Microbiology 12/19/22 12:10 MRSA Culture - Final Nose A&P Assessment and plan (1) Hypoxia: Acute on chronic hypoxia. Baseline oxygen requirement of 3 L while sleeping Most likely secondary to congestive heart failure exacerbation and COPD exacerbation. (2) Acute exacerbation of CHF (congestive heart failure): New echocardiogram done shows an EF of 35 to 40%, moderate global LV hypokinesia, severely hypokinetic inferior wall, mild aortic stenosis with gradient of 7 mmHg, mildly dilated LA. Strict input output charting. Continue with IV Lasix 40 mg every 12 hourly. Mackey catheter. Patient overall around a liter negative since admission. Daily weights. (3) NSTEMI (non-ST elevated myocardial infarction): Appreciate cardiology recommendations. 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 Continue with aspirin, statin. Add Plavix. Continue with metoprolol 50 mg at home dose. Appreciate A1c, lipid panel. (4) Acute renal failure superimposed on stage 2 chronic kidney disease: Baseline creatinine normal. Most likely in setting of obstructive nephropathy from bladder outlet obstruction and cardiorenal syndrome. Creatinine trending down to 1.4 today. Continue with Mackey catheterization. Most likely patient will be discharged on Mackey catheter with advised to follow- up as an outpatient with urology. Medical reconciliation done for nephrotoxic drugs. (5) Acute exacerbation of chronic obstructive airways disease: Associated with suspected pulmonary fibrosis at baseline. Shortness of breath and hypoxia less likely from COPD. Given confusion in setting of worsening of dementia and possible sundowning we will hold off on any further prednisone. DuoNebs every 6 hours, budesonide twice daily. Low suspicion of pneumonia for now. Azithromycin 500 mg daily for next 5 days. Procalcitonin negative. Oxygen supplementation keeping saturation over 88%. (6) Altered mental status: Most likely sundowning in setting of worsening dementia due to hospitalization and acute illness. Increase medications to baseline home dose. Increase BuSpar to 10 mg 3 times daily. Add Cymbalta 60 mg twice daily at home dose. Continue risperidone 0.5 nightly. Continue with home dose of Seroquel and trazodone. Stop Effexor which is new medication started during hospitalization. Increase gabapentin to 300 mg 3 times daily. Take 600 mg 3 times daily at home. Frequent reorientation Haldol 5 mg IM as needed every 6 hourly for agitation. Sitter at bedside. (7) Hypertension: Goal blood pressure less than 140/90 mmHg. Continue to monitor blood pressures. Continue on home dose of metoprolol Qualifiers: Hypertension type: essential hypertension Qualified Code(s): I10 - Essential (primary) hypertension (8) Pulmonary embolism: Chronic. Continue heparin drip Qualifiers: Pulmonary embolism type: unspecified Chronicity: chronic Acute cor pulmonale presence: unspecified Qualified Code(s): I27.82 - Chronic pulmonary embolism (9) Type 2 diabetes mellitus: Hold OHA's. (10) CVA (cerebral vascular accident): Continue aspirin Continue statin (11) Hypothyroidism: Continue Synthroid (12) Anxiety and depression: Continue BuSpar Continue home Xanax as needed (13) Bladder outlet obstruction: Seen on CT abdomen pelvis. PSA appreciated. Mackey catheter. Plan Analgesia: Tylenol as needed Glycemic control: Lantus 20 units nightly, insulin sliding scale moderate protocol before meals and at bedtime Nutrition: Carb consistent diet CODE STATUS: Discussed in detail with patient and patient's daughter over the phone. Full code. PUD prophylaxis: Protonix DVT prophylaxis: Heparin drip will suffice as DVT prophylaxis Discharge planning: Back to SNF once medically stable. Continue with care at [facility] with telemetry. Care discussed in detail with patient's DPOA/daughter over the phone. This documentation was created by [employer] teller head software. Every effort was made to ensure accuracy of teller head. Any obvious errors or omissions should be clarified with the author of the document. Attestations Medical Necessity Statement*: Requires further hospitalization for management of non-ST elevation MO, congestive heart failure leading to hypoxia, metabolic encephalopathy in setting of worsening dementia secondary to sundowning Coding Level of Care Code 42629 High MDM includes risk/complexity, reviewing previous or external records, reviewing test results, ordering lab/other test(s), speaking with independent historian (other than patient), independently interpretating test(s) (not separately recorded) and discussion of management or test(s) w/ other healthcare professional and High Time for a total of 60 minutes, includes reviewing past or interval history, examining/interviewing patient, placing orders, counseling pat ient/family/other support, updating patient/family/other support, discussing plan of care with staff, communicating with other healthcare providers, documenting encounter and coordinating care Diagnoses Hypoxia R09.02 Acute exacerbation of CHF (congestive heart failure) I50.9 NSTEMI (non-ST elevated myocardial infarction) I21.4 Acute renal failure superimposed on stage 2 chronic kidney disease N17.9; N18.2 Acute exacerbation of chronic obstructive airways disease J44.1 Altered mental status R41.82 Hypertension I10 Hypertension type: essential hypertension Pulmonary embolism I27.82 Pulmonary embolism type: unspecified Chronicity: chronic Acute cor pulmonale presence: unspecified Type 2 diabetes mellitus E11.9 CVA (cerebral vascular accident) I63.9 Hypothyroidism E03.9 Anxiety and depression F41.9; F32.9 Bladder outlet obstruction N32.0
[2022-12-21] MEDS: gabapentin 100 mg Capsule 300 MG PO ×2 (15:32→20:55)
[2022-12-21] MEDS: oxyCODONE-APAP 5-325 mg Tablet 1 TAB PO ×2 (16:44→23:12)
[2022-12-21 17:14] LABS: Glucose Point of Care 179 mg/dL (70-110)
[2022-12-21 17:34] LABS: Partial Thromboplastin Time 66.6 SECONDS (23.9-36.7)
--- NOTE | 2022-12-21 18:12 | PC.NURSE ---
Shift Note: Pt rested in bed with eyes closed for most of this shift. When his eyes were open he did pull at monitoring wires/cables. He would get restless and his hands would be looking for something. He became agitated around 1600. He was hot and cold, needed to sleep, needed to get up, wanted a fan, then fan on, wanted blankets on and off,wanted the fan off, wanted to sit in chair then back to bed. He w ould flip flop on his temperature every 5 minutes for about an hour. . He was retelss rolling from rachelle to side. He denies pain then stated it was terrible when asked if his back hurt. 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 Pt redirected and distracted frequent. Rubbed his back with lotion, sips of his drink, etc. Visitor came and his mentation improved, he was able to hold a conversation. He ate his breakfast and dinner well. At lunch he just wanted to sleep. He took all PO meds due this sift. His heparin gtt remains infusing with no rate change needed per PTT lab draws. NO BM this shift. Clear yellow urine noted, output greater than 1300. Sinus rhythm noted on monitor entire shift. BP WNL. Frequent safety and comfort rounds continue. Orders and/or nursing care completed as indicated. Patient monitored for response to intervention and treatment(s). Education provided includes Lasix, Cymbalta, Buspar, Gabapentin, Percocet, plan of care and progress. Patient verbalized understanding but needs reinforcement. Supervisor Reactor Fueling verbalized understanding of plan of , progress and medications discussed. . Will continue to monitor.
--- NOTE | 2022-12-21 19:12 | PC.NURSE ---
Report given to kristina Holcomb.
[2022-12-21] MEDS: trazodone 150 mg Tablet PO (20:55)
[2022-12-21] MEDS: BuSPIRONE 10 mg Tablet PO (20:55)
[2022-12-21] MEDS: insulin glargine 100 units/1 mL 20 UNIT SUBCUT (20:56)
[2022-12-21] MEDS: atorvastatin 40 mg Tablet 20 MG PO (20:56)
[2022-12-21 21:10] LABS: Glucose Point of Care 174 mg/dL (70-110)
[2022-12-21] MEDS: risperiDONE 0.25 mg Tablet 0.5 MG PO (22:04)
[2022-12-21] MEDS: acetaminophen 325 mg Tablet 650 MG PO (22:04)
[2022-12-21 23:06] LABS: Partial Thromboplastin Time 58.2 SECONDS (23.9-36.7)
[2022-12-22] VITALS (44 sets, daily range): BP systolic 96–141; BP diastolic 50–83; PULSE 53–76; RESP 10–23; TEMP 36.6; O2SAT 90–99
[2022-12-22] MEDS: heparin drip 25,000 UNIT/500 ML PREMIX 25 UNIT IV (01:07)
[2022-12-22 04:02] LABS: Basophils % 0.2 %; Eosinophils # 0.1 10^3/uL (0.0-0.8); Eosinophils % 0.5 %; Hematocrit 31.5 % (42.0-52.0); Lymphocytes # 2.3 10^3/uL (0.8-4.8); Lymphocytes % 16.5 %; Mean Corpuscular HGB Conc 28.6 g/dL (30.0-36.0); Mean Corpuscular Hemoglobin 20.2 pg (28.0-34.0); Mean Corpuscular Volume 70.6 fl (80-94); Mean Platelet Volume 9.9 fL (7.4-10.4); Monocytes # 1.3 10^3/uL (0.2-0.9); Monocytes % 9.1 %; Neutrophils # 10.07 10^3/uL (1.8-7.7); Nucleated Red Blood Cells % 0.1 %; Platelet Count 463 10^3/cmm (130-400); Red Blood Count 4.46 10^6/uL (4.1-5.3); Red Cell Distribution Width 17.8 % (12.1-15.1); White Blood Count 13.8 10^3/uL (4.0-10.0)
[2022-12-22 04:10] LABS: Partial Thromboplastin Time 69.5 SECONDS (23.9-36.7)
[2022-12-22 04:24] LABS: Alanine Aminotransferase 29 U/L (0-41); Albumin Level 3.4 g/dL (3.5-5.2); Alkaline Phosphatase 58 U/L (40-130); Anion Gap 13.3 (5-19); Aspartate Amino Transferase 31 U/L (0-40); Blood Urea Nitrogen 39 mg/dL (8-23); Calcium 9.2 mg/dL (8.5-10.5); Carbon Dioxide 33 mmol/L (22-29); Chloride 100 mmol/L (98-107); Globulin 3.5 g/dL (1.3-4.6); Glucose 117 mg/dL (65-115); Osmolality Calculated 304 mOsm/kg (285-295); Potassium 4.3 mmol/L (3.5-5.1); Sodium 142 mmol/L (136-145); Total Bilirubin 1.1 mg/dL (0.15-1.2); Total Protein 6.9 g/dL (6.6-8.7)
[2022-12-22] MEDS: oxyCODONE-APAP 5-325 mg Tablet 1 TAB PO ×3 (05:08→18:01)
[2022-12-22 06:44] LABS: Glucose Point of Care 128 mg/dL (70-110)
[2022-12-22 09:08] LABS: Glucose Point of Care 147 mg/dL (70-110)
[2022-12-22] MEDS: levothyroxine 150 mcg Tablet PO (09:20)
[2022-12-22] MEDS: pantoprazole DR 40 mg Tablet PO (09:20)
[2022-12-22] MEDS: quetiapine 100 mg Tablet PO (09:20)
[2022-12-22] MEDS: ferrous gluconate 324 mg Tablet PO ×2 (09:20→18:03)
[2022-12-22] MEDS: gabapentin 100 mg Capsule 300 MG PO (09:21)
[2022-12-22] MEDS: metoprolol succinate ER (24 HR) 50 mg Tablet PO (09:21)
[2022-12-22] MEDS: duloxetine 60 mg Capsule PO ×2 (09:21→18:03)
[2022-12-22] MEDS: aspirin 81 mg EC Tablet PO (09:21)
[2022-12-22] MEDS: azithromycin 250 mg Tablet 500 MG PO (09:21)
[2022-12-22] MEDS: BuSPIRONE 10 mg Tablet PO ×3 (09:22→21:07)
[2022-12-22] MEDS: insulin lispro 100 unit/1 mL SUBCUT ×2 (09:22→12:06)
[2022-12-22] MEDS: fluticasone nasal spray 16gm Btl 1 SPRAY INTRANASAL ×2 (09:22→18:03)
[2022-12-22] MEDS: FUROsemide 10 mg/mL SDV 4mL 40 MG IVP ×2 (09:23→18:03)
[2022-12-22] MEDS: acetaminophen 325 mg Tablet 650 MG PO (09:59)
[2022-12-22] MEDS: ipratropium-albuterol 3 mL Neb INHALATION (11:49)
[2022-12-22] MEDS: ALPRAZolam 0.5 mg Tablet PO ×2 (12:06→18:36)
[2022-12-22 12:12] LABS: Glucose Point of Care 192 mg/dL (70-110)
--- NOTE | 2022-12-22 13:25 | PC.SOCIAL ---
IMM update IMM updated with patient. Copy Pg 2 provided. Verbalized an understanding. Initialled, dated, timed, and placed in chart.
[2022-12-22 16:21] LABS: Partial Thromboplastin Time 89.5 SECONDS (23.9-36.7)
--- NOTE | 2022-12-22 16:22 | P.PN_ITS ---
Subjective Subjective: No acute events overnight. Patient has been more comfortable and calm. Today morning examination was lying comfortably in bed, AOx3, weak appearing. Denies any nausea, vomiting, headache. Denies any chest pain. Continued on heparin drip. Documented urine output of around 2.5 L. Has remained hemodynamically stable and afebrile. Vitals/I&O/Wt Last Vital Signs Temp 97.8 F 12/22/22 04:58 Pulse 61 12/22/22 15:00 Resp 14 12/22/22 15:00 BP 96/59 12/22/22 15:00 Pulse Ox 95 12/22/22 15:00 O2 Del Method 12/22/22 15:00 O2 Flow Rate 2 12/22/22 15:00 12/22/22 12/22/22 12/22/22 06:59 14:59 22:59 Intake Total 466.667 / 1346.667 480 / 480 Output Total 1250 / 2575 725 / 725 Balance -783.333 / -1228.333 480 / 480 -725 / -245 Weight last 48 hrs Weight 95.436 kg Physical Exam Narrative: General: No acute distress, AOx3, less agitated, calm, fidgety, occasionally trying to get out of bed Head: Normocephalic. Atraumatic. EOM intact. Neck: No JVD. Cardiovascular: RRR. No gallops. No murmurs. No peripheral edema. Lungs: Breath sounds are diminished in bilateral bases. Very faint end expiratory wheezing. no use of accessory muscles, no crackles. Skin: No jaundice. No rashes. Abdomen: Normal bowel sounds, abdomen soft and nontender. Extremities: No cyanosis or clubbing. Musculoskeletal: Noo swollen or erythematous joints. Neurological: Moves all 4 extremities. No myoclonus. Urinary Catheter Management: Mackey: Cath Placed During This Visit: yes Reason for Continuing Indwelling Catheter: Acute Urinary Retention or Obstruction Urinary Catheter Date of Insertion: 12/19/22 Urinary Catheter Time of Insertion: 15:30 Data 12/22/22 03:49 12/22/22 03:49 A&P Assessment and plan (1) Hypoxia: Acute on chronic hypoxia. Baseline oxygen requirement of 3 L while sleeping Most likely secondary to congestive heart failure exacerbation and COPD exacerbation. (2) Acute exacerbation of CHF (congestive heart failure): New echocardiogram done shows an EF of 35 to 40%, moderate global LV hypokinesia, severely hypokinetic inferior wall, mild aortic stenosis with gradient of 7 mmHg, mildly dilated LA. Strict input output charting. Continue with IV Lasix 40 mg every 12 hourly. Mackey catheter. Patient overall around a liter negative since admission. Daily weights. (3) NSTEMI (non-ST elevated myocardial infarction): Appreciate cardiology recommendations. Plan for medical management given history of SCREW DOWN of RCA, acute kidney injury ongoing and advanced age. Continue with aspirin, statin. Add Plavix. Continue with metoprolol 50 mg at home dose. Appreciate A1c, lipid panel. (4) Acute renal failure superimposed on stage 2 chronic kidney disease: Baseline creatinine normal. Most likely in setting of obstructive nephropathy from bladder outlet obstruction and cardiorenal syndrome. Creatinine trending down to 1.4 today. Continue with Mackey catheterization. Most likely patient will be discharged on Mackey catheter with advised to follow- up as an outpatient with urology. Medical reconciliation done for nephrotoxic drugs. (5) Acute exacerbation of chronic obstructive airways disease: Associated with suspected pulmonary fibrosis at baseline. Shortness of breath and hypoxia less likely from COPD. Given confusion in setting of worsening of dementia and possible sundowning we will hold off on any further prednisone. DuoNebs every 6 hours, budesonide twice daily. Low suspicion of pneumonia for now. Azithromycin 500 mg daily for next 5 days. Procalcitonin negative. Oxygen supplementation keeping saturation over 88%. (6) Altered mental status: Most likely sundowning in setting of worsening dementia due to hospitalization and acute illness. Increase medications to baseline home dose. Increase BuSpar to 10 mg 3 times daily. Add Cymbalta 60 mg twice daily at home dose. Continue risperidone 0.5 nightly. Continue with home dose of Seroquel and trazodone. Stop Effexor which is new medication started during hospitalization. Increase gabapentin to 300 mg 3 times daily. Take 600 mg 3 times daily at home. Frequent reorientation Haldol 5 mg IM as needed every 6 hourly for agitation. Sitter at bedside. (7) Hypertension: Goal blood pressure less than 140/90 mmHg. Continue to monitor blood pressures. Continue on home dose of metoprolol Qualifiers: Hypertension type: essential hypertension Qualified Code(s): I10 - Essential (primary) hypertension (8) Pulmonary embolism: Chronic. Continue heparin drip Qualifiers: Pulmonary embolism type: unspecified Chronicity: chronic Acute cor pulmonale presence: unspecified Qualified Code(s): I27.82 - Chronic pulmonary embolism (9) Type 2 diabetes mellitus: Hold OHA's. (10) CVA (cerebral vascular accident): Continue aspirin Continue statin (11) Hypothyroidism: Continue Synthroid (12) Anxiety and depression: Continue BuSpar Continue home Xanax as needed (13) Bladder outlet obstruction: Seen on CT abdomen pelvis. PSA appreciated. Mackey catheter. Plan Analgesia: Tylenol as needed Glycemic control: Lantus 20 units nightly, insulin sliding scale moderate protocol before meals and at bedtime Nutrition: Carb consistent diet CODE STATUS: Discussed in detail with patient and patient's daughter over the phone. Patient would want heroic measures to keep himself alive. He is okay with chest compressions or mechanical ventilation if needed. Full code. PUD prophylaxis: Protonix DVT prophylaxis: Heparin drip will suffice as DVT prophylaxis Discharge planning: Back to SNF once medically stable. [facility] with care at [facility] with telemetry. Care discussed in detail with patient's DPOA/daughter over the phone. Plan for the day: Continue with heparin drip for 1 more day. Continue with aspirin, Plavix, statin, beta-paulina. Continue with IV Lasix 40 mg twice daily. BMP stabilizing. Creatinine back to baseline. Maintain Mackey catheter. Plan to discharge patient with Mackey catheter in place. Oxygen supplementation keeping saturation over 95%. Continue with chronic psych medications including buspirone 10 mg 3 times daily, Cymbalta 60 mg twice daily, increase gabapentin to 600 mg 3 times daily, Seroquel 100 mg daily along with tizanidine 2 mg 3 times daily as needed, trazodone 150 nightly. High concerns for sundowning in setting of baseline undiagnosed dementia. . This documentation was created by [employer] power project manager software. Every effort was made to ensure accuracy of power project manager. Any obvious errors or omissions should be clarified with the author of the document. Attestations Medical Necessity Statement*: Requires further hospitalization for management of hypoxia in setting of congestive heart failure in a patient with non-ST elevation SD on medical management, sundowning in setting of baseline dementia. Coding Level of Care Code 02790 High MDM includes risk/complexity, reviewing previous or external records, reviewing test results, ordering lab/other test(s), independently interpretating test(s) (not separately recorded) and discussion of management or test(s) w/ other healthcare professional and High Time for a total of 60 minutes, includes reviewing past or interval history, examining/interviewing patient, placing orders, counseling patient/family/other support, updating patient/family/other support, discussing plan of care with staff, communicating with other healthcare providers, documenting encounter and coordinating care Diagnoses Hypoxia R09.02 Acute exacerbation of CHF (congestive heart failure) I50.9 NSTEMI (non-ST elevated myocardial infarction) I21.4 Acute renal failure superimposed on stage 2 chronic kidney disease N17.9; N18.2 Acute exacerbation of chronic obstructive airways disease J44.1 Altered mental status R41.82 Hypertension I10 Hypertension type: essential hypertension Pulmonary embolism I27.82 Pulmonary embolism type: unspecified Chronicity: chronic Acute cor pulmonale presence: unspecified Type 2 diabetes mellitus E11.9 CVA (cerebral vascular accident) I63.9 Hypothyroidism E03.9 Anxiety and depression F41.9; F32.9 Bladder outlet obstruction N32.0
[2022-12-22] MEDS: gabapentin 300 mg Capsule 600 MG PO ×2 (16:30→21:07)
[2022-12-22 17:53] LABS: Glucose Point of Care 133 mg/dL (70-110)
[2022-12-22 20:48] LABS: Glucose Point of Care 127 mg/dL (70-110)
[2022-12-22] MEDS: trazodone 150 mg Tablet PO (21:06)
[2022-12-22] MEDS: atorvastatin 40 mg Tablet 20 MG PO (21:06)
[2022-12-22] MEDS: risperiDONE 0.25 mg Tablet 0.5 MG PO (21:07)
[2022-12-22] MEDS: insulin glargine 100 units/1 mL 20 UNIT SUBCUT (21:07)
[2022-12-22] MEDS: heparin drip 25,000 UNIT/500 ML PREMIX 21 UNIT IV (21:08)
[2022-12-22 23:18] LABS: Partial Thromboplastin Time 64.5 SECONDS (23.9-36.7)
[2022-12-23] VITALS (38 sets, daily range): BP systolic 102–143; BP diastolic 49–83; PULSE 58–82; RESP 12–27; O2SAT 92–98
[2022-12-23] MEDS: oxyCODONE-APAP 5-325 mg Tablet 1 TAB PO ×2 (00:51→09:24)
[2022-12-23 04:56] LABS: Basophils # 0.1 10^3/uL (0.0-0.1); Basophils % 1.1 %; Eosinophils # 0.5 10^3/uL (0.0-0.8); Eosinophils % 4.8 %; Hematocrit 35.2 % (42.0-52.0); Hemoglobin 9.7 g/dL (11.7-16.6); Lymphocytes # 2.3 10^3/uL (0.8-4.8); Lymphocytes % 24.2 %; Mean Corpuscular HGB Conc 27.6 g/dL (30.0-36.0); Mean Corpuscular Hemoglobin 19.6 pg (28.0-34.0); Mean Corpuscular Volume 71.3 fl (80-94); Mean Platelet Volume 10.1 fL (7.4-10.4); Monocytes # 0.9 10^3/uL (0.2-0.9); Monocytes % 9.3 %; Neutrophils # 5.57 10^3/uL (1.8-7.7); Neutrophils % 60.1 %; Nucleated Red Blood Cells % 0.2 %; Platelet Count 423 10^3/cmm (130-400); Red Blood Count 4.94 10^6/uL (4.1-5.3); White Blood Count 9.3 10^3/uL (4.0-10.0)
[2022-12-23 05:06] LABS: Partial Thromboplastin Time 54.1 SECONDS (23.9-36.7)
[2022-12-23 05:14] LABS: Alanine Aminotransferase 28 U/L (0-41); Albumin Level 3.5 g/dL (3.5-5.2); Alkaline Phosphatase 62 U/L (40-130); Aspartate Amino Transferase 28 U/L (0-40); Blood Urea Nitrogen 33 mg/dL (8-23); Calcium 8.8 mg/dL (8.5-10.5); Carbon Dioxide 30 mmol/L (22-29); Chloride 99 mmol/L (98-107); Globulin 3.7 g/dL (1.3-4.6); Glucose 90 mg/dL (65-115); Osmolality Calculated 297 mOsm/kg (285-295); Sodium 140 mmol/L (136-145); Total Bilirubin 1.1 mg/dL (0.15-1.2); Total Protein 7.2 g/dL (6.6-8.7)
[2022-12-23 05:27] LABS: Anion Gap 14.9 (5-19); Potassium 3.9 mmol/L (3.5-5.1)
[2022-12-23 07:33] LABS: Glucose Point of Care 96 mg/dL (70-110)
--- NOTE | 2022-12-23 08:21 | PM.PN ---
Subjective Subjective: Patient's condition is unchanged and stable Vitals/I&O/Wt Last Vital Signs Temp 97.8 F 12/22/22 04:58 Pulse 67 12/23/22 07:30 Resp 22 H 12/23/22 07:30 BP 102/49 12/23/22 07:00 Pulse Ox 97 12/23/22 07:30 O2 Del Method 12/23/22 07:30 O2 Flow Rate 2 12/23/22 07:30 12/22/22 12/23/22 12/23/22 22:59 06:59 14:59 Intake Total 1022.217 / 1502.217 Output Total 1825 / 1825 300 / 2125 Balance -802.783 / -322.783 -300 / -622.783 Weight last 48 hrs Weight 199 lb 0.4 oz Weight 201 lb 9 oz Physical Exam Narrative: GENERAL: Patient is alert, awake and oriented x2. [] NECK: No jugular vein distension. [] HEENT: No cyanosis. No icterus. No pallor. [] HEART: Regular S1 and S2. No murmur, rub or gallop. [] LUNGS: Clear to auscultate bilaterally. [] ABDOMEN: Soft CENTRAL NERVOUS SYSTEM: Grossly nonfocal. [] EXTREMITIES: Lower extremities with 1+ edema bilaterally. Urinary Catheter Management: Mackey: Cath Placed During This Visit: yes Reason for Continuing Indwelling Catheter: Accurate Measurement of Urinary Output in Critically Ill Patients Urinary Catheter Date of Insertion: 12/19/22 Urinary Catheter Time of Insertion: 15:30 Data 12/23/22 04:08 12/23/22 04:08 A&P Assessment and plan (1) NSTEMI (non-ST elevated myocardial infarction): (2) Type 2 diabetes mellitus: (3) Acute exacerbation of CHF (congestive heart failure): (4) Acute exacerbation of chronic obstructive airways disease: (5) Acute renal failure superimposed on stage 2 chronic kidney disease: (6) Hypertension: Qualifiers: Hypertension type: essential hypertension Qualified Code(s): I10 - Essential (primary) hypertension (7) CVA (cerebral vascular accident): (8) Pulmonary embolism: Qualifiers: Pulmonary embolism type: unspecified Chronicity: chronic Acute cor pulmonale presence: unspecified Qualified Code(s): I27.82 - Chronic pulmonary embolism Plan Patient is stable. No changes. Cardiology will sign off. Please call with questions. Attestations Medical Necessity Statement*: Care expected to cross 2 midnights. Coding Level of Care Code Acute Code for [facility] Diagnoses NSTEMI (non-ST elevated myocardial infarction) I21.4 Type 2 diabetes mellitus E11.9 Acute exacerbation of CHF (congestive heart failure) I50.9 Acute exacerbation of chronic obstructive airways disease J44.1 Acute renal failure superimposed on stage 2 chronic kidney disease N17.9; N18.2 Hypertension I10 Hypertension type: essential hypertension CVA (cerebral vascular accident) I63.9 Pulmonary embolism I27.82 Pulmonary embolism type: unspecified Chronicity: chronic Acute cor pulmonale presence: unspecified
[2022-12-23] MEDS: budesonide 0.5 mg/2 mL Neb INHALATION (09:22)
[2022-12-23] MEDS: ipratropium-albuterol 3 mL Neb INHALATION ×2 (09:23→16:09)
[2022-12-23] MEDS: aspirin 81 mg EC Tablet PO (09:24)
[2022-12-23] MEDS: azithromycin 250 mg Tablet 500 MG PO (09:24)
[2022-12-23] MEDS: quetiapine 100 mg Tablet PO (09:24)
[2022-12-23] MEDS: ferrous gluconate 324 mg Tablet PO (09:24)
[2022-12-23] MEDS: duloxetine 60 mg Capsule PO (09:24)
[2022-12-23] MEDS: gabapentin 300 mg Capsule 600 MG PO (09:24)
[2022-12-23] MEDS: BuSPIRONE 10 mg Tablet PO (09:25)
[2022-12-23] MEDS: levothyroxine 150 mcg Tablet PO (09:25)
[2022-12-23] MEDS: fluticasone nasal spray 16gm Btl 1 SPRAY INTRANASAL (09:25)
[2022-12-23] MEDS: FUROsemide 10 mg/mL SDV 4mL 40 MG IVP (09:25)
[2022-12-23] MEDS: metoprolol succinate ER (24 HR) 50 mg Tablet PO (09:25)
[2022-12-23] MEDS: pantoprazole DR 40 mg Tablet PO (09:28)
--- NOTE | 2022-12-23 09:50 | PC.NURSE ---
BP Cuff, patient continues to refuse to wear BP cuff. Spot checks done.
--- NOTE | 2022-12-23 10:17 | PC.CHAP ---
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 sheet manager visit [] Patient/Family/Request visit [] Outpatient visit [] Follow-up visit [] Physician referral [] Code/Alert [x] Routine visit [] Staff referral [] Actively dying [] Patient sleeping [] Family support [] [] Out of room [] Palliative care [] [] Receiving care in room [] Pre-surgical visit [] Trauma [] Long length of stay [x] ICU visit [x] Other: sitter Relational/Emotional Strength [] Patient feels connected with others/family/visitors/staff [] Distress [] Loneliness/isolation [] Abandonment Spirituality of Patient [] Person of Ameena [] Attends Roman Catholic of their Ameena [] Believes in Prayer [] Reads Bible or Yazdanism materials [] There are Spiritual issues to be addressed Wood Hacker Interventions [x] Prayer [] Active listening [] Non-anxious presence [] Spiritual/emotional support [] Crisis/trauma care [] Spiritual counseling [] Bereavement support [] Provided bereavement packet [] Provided Bible/devotional materials [] Provided toy/stuffed animal, coloring book to patient or family member [] Provided Communion [] Anointing/[place] [] Salvation [x] Completed spiritual assessment [] Other: Impact on Illness or Injury [] Angry [] Fearful [] Anxious [] Often cries [] Exhaustion [] Unable to work [] Unable to attend pentecostal [] Unable to walk/stand [] Unable to read [] Unable to drive [] Unable to eat/drink [] Unable to sleep [] Unable to be with family [] Patient intubated [] Other: Summary Time spent with patient
[2022-12-23 10:44] LABS: Partial Thromboplastin Time 55.1 SECONDS (23.9-36.7)
--- NOTE | 2022-12-23 11:12 | PC.NURSE ---
Family, Joyce Jones, called and notified of patient being discharge back to [place] today. VM left.
[2022-12-23 11:38] LABS: Glucose Point of Care 164 mg/dL (70-110)
--- NOTE | 2022-12-23 12:05 | P.DS_ITS ---
Discharge Providers Date of Admission: 12/19/22 10:49 Date of Discharge: December 23, 2022 Attending Provider at Admission: Aníbal Tijerina MD Attending Provider at Discharge: Ayden Cochran MD Primary Care Provider: Dheeraj Gonzalez Jr, MD Diagnoses at Discharge Discharge Diagnosis (1) Hypoxia: Status: Acute (2) Acute exacerbation of CHF (congestive heart failure): Status: Acute (3) NSTEMI (non-ST elevated myocardial infarction): Status: Acute (4) Acute renal failure superimposed on stage 2 chronic kidney disease: Status: Acute (5) Acute exacerbation of chronic obstructive airways disease: Status: Acute (6) Altered mental status: Status: Acute (7) Hypertension: Status: Chronic Qualifiers: Hypertension type: essential hypertension Qualified Code(s): I10 - Essential (primary) hypertension (8) Pulmonary embolism: Status: Acute Qualifiers: Acute cor pulmonale presence: unspecified Chronicity: chronic Pulmonary embolism type: unspecified Qualified Code(s): I27.82 - Chronic pulmonary embolism (9) Type 2 diabetes mellitus: Status: Acute (10) CVA (cerebral vascular accident): Status: Acute (11) Hypothyroidism: Status: Acute (12) Anxiety and depression: Status: Acute (13) Bladder outlet obstruction: Status: Acute Reason for Visit Reason for Visit: SOB Brief History: History as per HPI Agus Gillette is a 77 year old male with a past medical history significant for chronic kidney disease stage II, COPD, coronary artery disease, CVA, hypertension, hypothyroidism, pulmonary embolism, spinal cord stimulator, and congestive heart failure who presents from residential to the emergency department with reported shortness of breath x 1 day.? Upon evaluation, patient has altered mental status and unable to provide any pertinent history.? He is only oriented only to self.? Not oriented to situation, place or year.? Further history is obtained from ED provider who reported that patient was hypoxic on room air requiring 5 L of oxygen.? He states that the residential report that he was given that the patient does not wear oxygen at baseline however chart review reveals patient does typically wear 3 L at night.? Patient denies any chest pain, fevers, nausea or chills.? Denies aggravating or alleviating factors. Hospital Course Hospital Course Patient was admitted to the hospital for further evaluation and management of hypoxic respiratory failure. There is a concern for congestive heart failure along with COPD exacerbation hence she was started on IV diuretics. Pneumonia and PE were ruled out. He was also started on relation treatment and prednisone. On admission he was also found to be in slight KOKI which initially was thought to be secondary to cardiorenal syndrome. Eventually troponins were done which were concerning for non-ST elevation MN. He was started on heparin drip and cardiology was consulted. Echocardiogram was done which showed a new low EF of 35 to 40% with global moderate LV hypokinesia with severely hypokinetic inferior wall with RVSP of 45 mmHg and mild aortic stenosis. CT abdomen pelvis ordered for further evaluation of KOKI on CKD which was consistent with bladder outlet obstruction because of prostatomegaly. Mackey catheter was placed. Patient responded well to the treatment and his oxygenation has continued to improve with renal functions trending down to its baseline. For further management of non-ST elevation MN further chart review was done and care was discussed in detail with patient and patient's daughter. Options discussed possible medical management versus coronary angiogram which puts him at a higher risk of renal failure given his age and previous cath results. Patient's and patient's DPOA/daughter verbalized understanding and opted for medical management. Patient's hospitalization was complicated by him developing worsening agitation and confusion secondary to sundowning in setting of baseline minimal dementia. Patient was restarted on his home anxiety medications as per creatinine clearance and has been back to his baseline mentation for last 48 hours. He has been discharged hemodynamically stable condition with Mackey in place with advised to follow-up with Dr. Marcus in 1 week for further management of bladder outlet obstruction, aspirin and Eliquis. His dose of metoprolol has been increased while at a dose of Lantus has been decreased to 30 units daily. Physical Exam Narrative: General: No acute distress, AOx3, less agitated, calm, fidgety, occasionally trying to get out of bed Head: Normocephalic. Atraumatic. EOM intact. Neck: No JVD. Cardiovascular: RRR. No gallops. No murmurs. No peripheral edema. Lungs: Breath sounds are diminished in bilateral bases. Very faint end expiratory wheezing. no use of accessory muscles, no crackles. Skin: No jaundice. No rashes. Abdomen: Normal bowel sounds, abdomen soft and nontender. Extremities: No cyanosis or clubbing. Musculoskeletal: Noo swollen or erythematous joints. Neurological: Moves all 4 extremities. No myoclonus. Urinary Catheter Management: Mackey: Cath Placed During This Visit: yes Reason for Continuing Indwelling Catheter: Accurate Measurement of Urinary Output in Critically Ill Patients Urinary Catheter Date of Insertion: 12/19/22 Urinary Catheter Time of Insertion: 15:30 Discharge Data Studies Completed and Pending Completed Studies During Hospitalization Category Date Time Status CT abdomen pelvis wo con [id number] Routine Cat Scan 12/19/22 10:[address] head wo con* [id number] Routine Cat Scan 12/19/22 10:46 Completed XR chest 1V portable [id number] Stat Exams 12/18/22 20:39 [place] [id number] Routine Ultrasound 12/19/22 11:42 Completed CV. echo complete* [id number] Routine Ultrasound 12/19/22 13:38 Completed Pending at discharge Category Date Time Status Blood Culture Stat Lab 12/18/22 21:23 Results PTT [Partial Thromboplastin Time] Q6H Lab 12/23/22 17:00 Ordered SARS Covid-2 Antigen Routine Lab 12/23/22 11:51 Ordered Radiology Impressions Chest X-Ray 12/18/22 20:39 IMPRESSION: 1. Cardiomegaly. 2. Mild interstitial edema and pulmonary vascular congestion. 3. Minimal left lung field ground-glass airspace opacities reflecting alveolar edema and/or developing pneumonia. Abdomen/Pelvis CT 12/19/22 10:46 IMPRESSION: 1. No obstructing renal or ureteral calculi. No hydronephrosis in either kidney. 2. Enlarged calcified prostate measuring 4.5 CM. Evidence of mild bladder outlet obstruction. Recommend correlation PSA. 3. Dense vascular calcification including mesenteric artery origins and iliac arteries. 4. Normal caliber abdominal aorta. 5. Small esophageal hiatal hernia. 6. Interstitial edema within the lung bases. Trace RIGHT pleural fluid. Head CT 12/19/22 10:46 IMPRESSION: 1. No evidence of intracranial hemorrhage or mass effect. 2. Mild small vessel changes with mild parenchymal volume loss. 3. Vascular calcification. 4. Chronic infarct in the LEFT frontal parietal junction unchanged from previous. 5. No acute intracranial findings. Echocardiogram CONCLUSIONS ?Reducible moderately reduced with EF of 35 to 40% ?Moderate global hypokinesis seen.? Severely hypokinetic inferior?wall. ?Moderately hypokinetic right ventricle ?Mildly dilated left atrium ?Mild mitral regurgitation ?Mild aortic regurgitation.? Mild aortic stenosis. ?Mild tricuspid regurgitation ?Mild pulmonary hypertension ?Trace pulmonic regurgitation ?Compared to prior echocardiogram from 10/2022, LV systolic?function has reduced and is moderately reduced now. ?Miguel Coats MD ?(Electronically Signed) ?Final Date:? ? ? 20 December 2022 ? 08:33 Laboratory Results WBC 9.3 10^3/uL (4.0-10.0) 12/23/22 04:08 RBC 4.94 10^6/uL (4.1-5.3) 12/23/22 04:08 Hgb 9.7 g/dL (11.7-16.6) L 12/23/22 04:08 Hct 35.2 % (42.0-52.0) L 12/23/22 04:08 MCV 71.3 fl (80-94) L 12/23/22 04:08 MCH 19.6 pg (28.0-34.0) L 12/23/22 04:08 MCHC 27.6 g/dL (30.0-36.0) L 12/23/22 04:08 RDW 18.0 % (12.1-15.1) H 12/23/22 04:08 Plt Count 423 10^3/cmm (130-400) H 12/23/22 04:08 MPV 10.1 fL (7.4-10.4) 12/23/22 04:08 Neut % (Auto) 60.1 % 12/23/22 04:08 Lymph % (Auto) 24.2 % 12/23/22 04:08 [place] % (Auto) 9.3 % 12/23/22 04:08 Eos % (Auto) 4.8 % 12/23/22 04:08 Baso % (Auto) 1.1 % 12/23/22 04:08 Neut # (Auto) 5.57 10^3/uL (1.8-7.7) 12/23/22 04:08 Lymph # (Auto) 2.3 10^3/uL (0.8-4.8) 12/23/22 04:08 [place] # (Auto) 0.9 10^3/uL (0.2-0.9) 12/23/22 04:08 Eos # (Auto) 0.5 10^3/uL (0.0-0.8) 12/23/22 04:08 Baso # (Auto) 0.1 10^3/uL (0.0-0.1) 12/23/22 04:08 Nucleated RBC % (auto) 0.2 % 12/23/22 04:08 Nucleated RBCs # 0.0 /100WBC 12/23/22 04:08 APTT 55.1 SECONDS (23.9-36.7) H 12/23/22 10:12 D-Dimer 7.62 ug/mIFEU (0-0.59) H 12/19/22 11:10 Specimen Type Arterial 12/18/22 21:10 Sample Site Radial, right 12/18/22 21:10 ABG pH 7.35 (7.35-7.45) 12/18/22 21:10 ABG pCO2 42.4 mmHg (35-45) 12/18/22 21:10 ABG pO2 101.0 mmHg (80.0-100.0) H 12/18/22 21:10 ABG HCO3 23.5 mmol/L (22-26) 12/18/22 21:10 ABG Base Excess -2.0 mmol/L (-2.0-2.0) 12/18/22 21:10 Fan Test Pos 12/18/22 21:10 Hematocrit 28.1 % (42-52) L 12/18/22 21:10 Hgb O2 Saturation 95.6 % (95-100) 12/18/22 21:10 Carboxyhemoglobin 1.8 %THgb (0.4-20.1) 12/18/22 21:10 Methemoglobin 0.9 % (0.4-1.5) 12/18/22 21:10 Total Hemoglobin 9.2 g/dL (14-18) L 12/18/22 21:10 O2 Delivery Device Nc 12/18/22 21:10 O2 Liters/Min 4.0 % 12/18/22 21:10 Technical Customer Support Specialist ID Rashmi 12/18/22 21:10 Sodium 140 mmol/L (136-145) 12/23/22 04:08 Potassium 3.9 mmol/L (3.5-5.1) 12/23/22 04:08 Chloride 99 mmol/L (98-107) 12/23/22 04:08 Carbon Dioxide 30 mmol/L (22-29) H 12/23/22 04:08 Anion Gap 14.9 (5-19) 12/23/22 04:08 BUN 33 mg/dL (8-23) H 12/23/22 04:08 Creatinine 1.1 mg/dL (0.7-1.2) 12/23/22 04:08 GFR Calculation Not Reportable 12/23/22 04:08 Glucose 90 mg/dL (65-115) 12/23/22 04:08 POC Glucose 164 mg/dL (70-110) H 12/23/22 11:22 Estimat Average Glucose 128 12/20/22 05:03 Hemoglobin A1c 6.1 % (4.0-6.0) H 12/20/22 05:03 Calculated Osmolality 297 mOsm/kg (285-295) H 12/23/22 04:08 Calcium 8.8 mg/dL (8.5-10.5) 12/23/22 04:08 Phosphorus 4.3 mg/dL (2.5-4.5) 12/19/22 04:53 Magnesium 1.7 mg/dL (1.7-2.3) 12/19/22 04:53 Iron 10 ug/dL (59-158) L 12/19/22 04:53 TIBC 377 mcg/dl 12/19/22 04:53 % Saturation 2.6 % (20-50) L 12/19/22 04:53 Unsat Iron Binding 367 ug/dL (112-347) H 12/19/22 04:53 Total Bilirubin 1.1 mg/dL (0.15-1.2) 12/23/22 04:08 AST 28 U/L (0-40) 12/23/22 04:08 ALT 28 U/L (0-41) 12/23/22 04:08 Alkaline Phosphatase 62 U/L (40-130) 12/23/22 04:08 Troponin T Baseline 511 ng/L (0-15) H* 12/19/22 11:10 Troponin T 120 Minute 489.8 ng/L (0-15) H 12/19/22 13:00 Delta Troponin T -21.2 ABS# (0-10) L 12/19/22 13:00 Troponin T Hi Sens 6Hr 528.8 ng/L (0-15) H 12/19/22 18:03 Troponin T Hi Sens 6Hr Delta 17.8 ng/L (0-12) H* 12/19/22 18:03 C-Reactive Protein 15.7 mg/L (0.0-4.9) H 12/18/22 20:00 NT-Pro-B Natriuret Pep 2705 pg/mL (0-450) H 12/19/22 04:53 Total Protein 7.2 g/dL (6.6-8.7) 12/23/22 04:08 Albumin 3.5 g/dL (3.5-5.2) 12/23/22 04:08 Globulin 3.7 g/dL (1.3-4.6) 12/23/22 04:08 Triglycerides 88 mg/dL (0-150) 12/20/22 05:03 Cholesterol 86 mg/dL (0-200) 12/20/22 05:03 LDL Cholesterol, Calc 32 mg/dL (50-129) L 12/20/22 05:03 Total VLDL Cholesterol 18 mg/dL (0-30) 12/20/22 05:03 HDL Cholesterol 36 mg/dL (60-100) L 12/20/22 05:03 Cholesterol/HDL Ratio 2.39 mg/dL (1.0-5.00) 12/20/22 05:03 Prostate Specific Ag 0.733 ng/mL (0-4) 12/19/22 16:35 Vitamin B12 643 pg/mL (232-1245) 12/19/22 04:53 Folate 19.0 ng/mL (4.5-32.2) 12/19/22 04:53 Procalcitonin 0.09 ng/mL (0-0.5) 12/18/22 20:00 TSH 0.51 uIU/mL (0.27-4.20) 12/19/22 04:53 Urine Color Light yellow (Yellow) 12/19/22 12:10 Urine Appearance Clear (CLEAR) 12/19/22 12:10 Urine pH 5 (5-7) 12/19/22 12:10 Ur Specific [place] 1.015 (1.005-1.030) 12/19/22 12:10 Urine Protein Neg (Negative) 12/19/22 12:10 Urine Glucose (UA) Norm (Normal) 12/19/22 12:10 Urine Ketones Negative (Negative) 12/19/22 12:10 Urine Blood Neg (Negative) 12/19/22 12:10 Urine Nitrate Negative (Negative) 12/19/22 12:10 Urine Bilirubin Neg (Negative) 12/19/22 12:10 Urine Urobilinogen Neg mg/dL (Negative) 12/19/22 12:10 Ur Leukocyte Esterase Negative (Negative) 12/19/22 12:10 Ur Random Sodium 103 mmol/L 12/19/22 12:10 Ur Random Potassium 29 mmol/L 12/19/22 12:10 Ur Random Chloride 105 mmol/L 12/19/22 12:10 Influenza Type A Ag negative (Negative) 12/18/22 20:57 Influenza Type B Ag negative (Negative) 12/18/22 20:57 SARS-CoV-2 Ag (Rapid) negative (Negative) 12/18/22 20:57 Vitals Last Vital Signs Temp 97.8 F 12/22/22 04:58 Pulse 73 12/23/22 11:39 Resp 20 H 12/23/22 11:39 BP 143/76 12/23/22 11:05 Pulse Ox 95 12/23/22 11:39 O2 Del Method 12/23/22 11:39 O2 Flow Rate 2 12/23/22 11:39 Discharge Plan Discharge Patient Disposition: Xfer SNF Condition: Stable Prescriptions: New ferrous gluconate 324 mg (37.5 mg iron) Tablet 324 mg PO BIDWM Qty: 60 0RF risperidone 0.25 mg Tablet 0.5 mg PO BEDTIME Qty: 60 0RF Continued oxycodone-acetaminophen 5-325 mg tablet 1 tab PO Q6H PRN (Reason: pain) magnesium hydroxide [Milk of Magnesia] 400 mg/5 mL Suspension 30 ml PO DAILY PRN (Reason: Constipation) Qty: 0 bisacodyl 10 mg Suppository 10 mg SC DAILY PRN (Reason: Constipation) Qty: 0 Fleet Enema 19-7 gram/118 mL Enema 118 ml SC DAILY PRN (Reason: Constipation) Qty: 0 aspirin 81 mg Tablet,Delayed Release (Dr/Ec) 81 mg PO DAILY Qty: 0 0RF Eliquis 5 mg Tablet 5 mg PO BID Qty: 0 0RF acetaminophen 325 mg tablet 650 mg PO Q4H PRN (Reason: Mild/Mod Pain Or Temp >/= 101) glipizide 2.5 mg tablet extended release 24hr 2.5 mg PO DAILY buspirone 5 mg Tablet 10 mg PO TID tizanidine 2 mg Tablet 2 mg PO TID PRN (Reason: Muscle Pain) albuterol sulfate 2.5 mg /3 mL (0.083 %) Solution For Nebulization 2.5 mg INHALATION Q4H PRN (Reason: Shortness Of Breath) trazodone 100 mg Tablet 150 mg PO BEDTIME levothyroxine 150 mcg Tablet 150 mcg PO DAILY colestipol 1 gram Tablet 2 g PO DAILY budesonide-formoterol [Symbicort] 160-4.5 mcg/actuation Hfa Aerosol Inhaler 2 puff INHALATION BID pantoprazole 40 mg Tablet,Delayed Release (Dr/Ec) 40 mg PO DAILY metformin 1,000 mg Tablet 1,000 mg PO BID folic acid 1 mg Tablet 1 mg PO DAILY hydroxyzine pamoate [Vistaril] 25 mg Capsule 25 mg PO Q8H PRN (Reason: Anxiety) duloxetine [Cymbalta] 60 mg Capsule,Delayed Release(Dr/Ec) 60 mg PO BID quetiapine [Seroquel] 100 mg Tablet 100 mg PO DAILY gabapentin 600 mg tablet 600 mg PO TID atorvastatin 20 mg tablet 20 mg PO BEDTIME Vitamin B-12 1,000 mcg Tablet 1,000 mcg PO DAILY Changed Lasix 40 mg tablet 40 mg PO BID Qty: 90 3RF Levemir U-100 Insulin 100 unit/mL solution 30 unit SUBCUT BEDTIME Qty: 10 0RF metoprolol succinate 25 mg tablet extended release 24 hr 50 mg PO DAILY Qty: 60 0RF Discharge Orders: Discharge Order (Routine); Ordered 12/23/22 Ordered By: Ayden Cochran Referrals: [facility] [Outside] Marcello Marcus MD [Physician] - 7-10 days Miguel Coats M.D [Physician] - 1 month Corine Russell FNP [Nurse Practitioner] - 7-10 days Dheeraj Gonzalez Jr, MD [Primary Care Provider] - 1 week Discharge Diet: Cardiac and Diabetic Discharge Activity: Resume usual activity and Increase activity as tolerated Patient Instructions: COPD, Heart Attack (DC), Heart Failure (DC), Mackey Catheter Placement and Care (DC), CHF Stoplight, COPD Stoplight, Opioid Safety Activity Restrictions/Additional Instructions: Continue taking aspirin and Eliquis as before. Dose of Lasix has been increased to 40 mg twice daily. Dose of Levemir has been changed to 30 units nightly. Dose of metoprolol has been increased to 50 mg daily. Mackey catheter will remain in place. Please follow-up with Dr. Marcus within the next 1 week for a voiding trial. Please follow-up with Corine Russell/nurse practitioner from cardiology within the next [address] Coats in 1 month. Discharge Attestations Time Spent in Discharge Care*: greater than 30 min Specific Discharge Activities: educating patient, educating and/or supporting family/caregiver, discussing with pcp/other providers, discussing with medical case worker/social workers/dc planners, documenting/other paperwork and evaluating patient/reviewing data Quality Metrics Clinical Quality Measures [ No reported AMI, CVA or VTE this stay] Coding Level of Care Code 76684 Total time (in minutes) for Discharge: 50 Diagnoses Hypoxia R09.02 Acute exacerbation of CHF (congestive heart failure) I50.9 NSTEMI (non-ST elevated myocardial infarction) I21.4 Acute renal failure superimposed on stage 2 chronic kidney disease N17.9; N18.2 Acute exacerbation of chronic obstructive airways disease J44.1 Altered mental status R41.82 Hypertension I10 Hypertension type: essential hypertension Pulmonary embolism I27.82 Acute cor pulmonale presence: unspecified Chronicity: chronic Pulmonary embolism type: unspecified Type 2 diabetes mellitus E11.9 CVA (cerebral vascular accident) I63.9 Hypothyroidism E03.9 Anxiety and depression F41.9; F32.9 Bladder outlet obstruction N32.0
[2022-12-23 12:42] LABS: SARS Covid-2 Antigen negative (Negative)
--- NOTE | 2022-12-23 13:00 | PC.NURSE ---
Report called to Shirley Ndiaye [employer] [facility]. No further questions. Will await their transport van.
--- NOTE | 2022-12-23 16:14 | PC.NURSE ---
Patient ride to [facility] since 1100. Multiple changes to ride availability made by SNF. Ride to arrive at 1730.
--- NOTE | 2022-12-23 16:17 | PC.NURSE ---
Report given to DAVID DIEGO.
== END 2022-12-23 18:00 | disposition skilled nursing facility (03) | DRG 280 ==
LOC: ER 22:04 → MEDSURG 22:31 → ICU 12-21 00:46
PROVIDERS: Internal Medicine; Student in an Organized Health Care Education/Training Program; Admitting Provider Internal Medicine; Emergency Provider Family Medicine; PCP Family Medicine; Visit Provider Student in an Organized Health Care Education/Training Program
DX: I13.0 Hypertensive heart and chronic kidney disease with heart failure and stage 1 through stage 4 chronic kidney disease, or unspecified chronic kidney disease (principal); I21.4 Non-ST elevation (NSTEMI) myocardial infarction; G93.41 Metabolic encephalopathy; I50.23 Acute on chronic systolic (congestive) heart failure; J44.1 Chronic obstructive pulmonary disease with (acute) exacerbation; N13.8 Other obstructive and reflux uropathy; N17.9 Acute kidney failure, unspecified; N18.2 Chronic kidney disease, stage 2 (mild); E11.22 Type 2 diabetes mellitus with diabetic chronic kidney disease; E11.21 Type 2 diabetes mellitus with diabetic nephropathy; Z86.73 Personal history of transient ischemic attack (TIA), and cerebral infarction without residual deficits; E03.9 Hypothyroidism, unspecified; F41.8 Other specified anxiety disorders; N40.1 Benign prostatic hyperplasia with lower urinary tract symptoms; Z96.82 Presence of neurostimulator; Z99.81 Dependence on supplemental oxygen; I35.0 Nonrheumatic aortic (valve) stenosis; F03.90 Unspecified dementia, unspecified severity, without behavioral disturbance, psychotic disturbance, mood disturbance, and anxiety; E87.5 Hyperkalemia; R31.9 Hematuria, unspecified; Z86.711 Personal history of pulmonary embolism; Z79.51 Long term (current) use of inhaled steroids; Z79.84 Long term (current) use of oral hypoglycemic drugs; Z79.82 Long term (current) use of aspirin; Z79.891 Long term (current) use of opiate analgesic
CPT/HCPCS: 36415; 36416; 51702; 70450; 71045; 74176; 80048; 80053; 80061; 81003; 82436; 82607; 82746; 82805; 82962; 83036; 83540; 83550; 83735; 83880; 84100; 84133; 84145; 84153; 84300; 84443; 84484; 85025; 85378; 85730; 86140; 86403; 87040; 87426; 87449; 87641; 87804; 93005; 93306; 93970; 94640; 96372; 96374; 96375; 96376; 99285; G0378; J1630; J1644; J1815; J1940; J2930; J7512; J7626; Q0144

== ENCOUNTER → 2023-01-10 13:26 | Outpatient (BNVA) | payer MEDICARE, MEDICAID, SELFPAY | PROVIDERS: PCP Family Medicine; Visit Provider Nurse Practitioner Family | DX: I21.4 Non-ST elevation (NSTEMI) myocardial infarction (principal); Z87.891 Personal history of nicotine dependence; I13.0 Hypertensive heart and chronic kidney disease with heart failure and stage 1 through stage 4 chronic kidney disease, or unspecified chronic kidney disease; N18.2 Chronic kidney disease, stage 2 (mild); I50.22 Chronic systolic (congestive) heart failure; Z79.01 Long term (current) use of anticoagulants; Z79.82 Long term (current) use of aspirin | CPT/HCPCS: 99214 ==

== ENCOUNTER 2023-02-23 12:16 | Emergency (ER) | payer MEDICARE, MEDICAID, SELFPAY ==
[2023-02-23 11:51] VITALS: RESP 22; O2SAT 96
--- NOTE | 2023-02-23 11:54 | XR_ITS ---
WS: [id number] EXAMINATION: XR chest 1V portable [id number] REASON FOR EXAM: sob COMPARISON: None available. ORDER DATE: 02/23/2023 12:17 PM TECHNIQUE: A single, portable frontal chest x-ray was obtained. X-RAY FINDINGS: Spinal stimulators. Lungs: Subtle Mild interstitial edema less prominent than on previous study and may be simulated by c hronic lung change. Pleural spaces: Unremarkable. No pleural effusion. No pneumothorax. Heart/Mediastinum: The prominent right hilum is again noted along with a widened right paratracheal s pace Bones/joints: Unremarkable. XR/XR chest 1V portable [id number] IMPRESSION: 1. Cannot exclude early or Mild interstitial edema underlying Chronic lung change. 2 prominent right hilum which could be due to pulmonary artery hypertension or infectious, however hilar mass or adenopathy cannot be entirely ruled out. No p rior lateral chest views for comparison recommend continued follow-up
[2023-02-23 11:55] VITALS: BP 131/71; PULSE 84; RESP 14; O2SAT 96
--- NOTE | 2023-02-23 11:55 | ECG_ITS ---
[facility] Test Date: 2023-02-23 Pat Name: Agus Gillette Department: Room: Gender: Male [employer] Att[employer]: : 1945 Requested By: Andrei Osman Order Number: [id number] Sloane MD: Carolina Fang M.D. Measurements Intervals [place] Rate: 85 P: -3 [place]: 154 QRS: 23 QRSD: 120 T: 0 QT: 373 QTc: 444 Interpretive Statements SINUS RHYTHM WITH FREQUENT VENTRICULAR PREMATURE COMPLEXES POSSIBLE INFERIOR MYOCARDIAL INFARCTION , PROBABLY OLD [30 ms Q WAVE IN II/aVF] Nonspecific ST-T changes ABNORMAL RHYTHM ECG Compared to ECG 12/19/2022 16:52:33 Ventricular premature complex(es) now present T-wave abnormality no longer present Possible ischemia no longer present Myocardial infarct finding still present Electronically Signed On 02-23-2023 21:08:05 CDT by Carolina Fang M.D. [id number]
--- NOTE | 2023-02-23 11:56 | W.ED.SOB ---
HPI - SOB/Dyspnea General: Chief Complaint: Shortness of Breath/Dyspnea Stated Complaint: shortness of breath Source: patient and EMS Mode of arrival: EMS History of Present Illness: HPI Narrative: Patient with a known history of COPD, CHF was sent to the emergency department from [facility]. Allegedly the report is that the [facility] facility gave him his hydralazine for elevated blood pressure but he still complained of being short of air. There was also report of an irregular heartbeat at the [facility]. EMS reports that throughout the time he was in their care he had a regular sinus rhythm and his oxygen saturation was 98% on his usual 4 L of nasal cannula. During my interview with the patient he states he did feel a little short of breath this morning but feels better now. He denies any chest pain, fevers, cough, chills nausea vomiting diarrhea or other constitutional complaints at this time. He does admit to a past history of a stroke so sometimes has difficulty putting his thoughts into spoken word but otherwise has no issues. Pertinent past history: COPD and congestive heart failure Timing: now resolved Exacerbating factors: nothing Known history of: COPD and congestive heart failure Associated symptoms: Deny chest pain, extremity pain, fever(s), hemoptysis, nausea, palpitations, syncope or vomiting Related Data: Home oxygen amount: 4 liters Review of Systems Const: Denies: fever(s) or chills ENMT: Denies: throat pain, odynophagia, nasal discharge or nasal congestion Card: Denies: chest pain, palpitations, syncope or pre-syncope Resp: Reports: dyspnea; Denies: non-productive cough, wheezing or hemoptysis GI: Denies: nausea, vomiting or diarrhea : Reports: urinary urgency Musc: Denies: neck pain, back pain, extremity pain or extremity swelling Neuro: Denies: headache(s), numbness in extremities or weakness in extremities PFSH ED PFSH: Medical History Acute blood loss anemia KOKI (acute kidney injury) Chest pain Chronic kidney disease, stage II (mild) COPD (chronic obstructive pulmonary disease) Coronary artery disease CVA (cerebral vascular accident) Exertional shortness of breath GI bleed Hypertension Hypothyroidism Insomnia disorder Ischemic bowel disease Lower back pain Pulmonary embolism Small bowel obstruction Spinal cord stimulator status Systolic congestive heart failure Last echocardiogram 12/19/2022: LVEF 35-40%, mild aortic stenosis (mean gradient 7 mmHg, EVERT 1.2 cm?) LVEF decreased from 55% in 2020. Surgical History H/O cardiac catheterization H/O shoulder surgery History of ankle surgery History of right-sided carotid endarterectomy Hx of cholecystectomy Family History Denies family history of Lung disease Hypertension Social History Smoking and tobacco status: former smoker Alcohol intake: never Household members: other Details: Resident of a long term Physical Exam Narrative: EXAM NARRATIVE: This elderly gentleman appears to be comfortable speaks in complete sentences without dyspnea and is cooperative. Const: COMMON NORMALS: no acute distress and alert GENERAL APPEARANCE: cooperative and comfortable ORIENTATION/CONSCIOUSNESS: Yes awake, Yes oriented to person and Yes oriented to place HENMT: COMMON NORMALS: normocephalic, Normal nasal mucous membranes and turbinates present and moist oral mucous membranes HEAD & SCALP: normocephalic FACE & SINUS: normal facial exam NOSE: Normal nasal mucous membranes and turbinates present Eye: COMMON NORMALS: Equal, round and reactive pupils present, EOMs intact bilaterally and conjunctivae normal CONJUNCTIVA: Yes conjunctivae normal PUPIL: Yes Equal, round and reactive pupils present Neck/C-Spine: COMMON NORMALS: full ROM, supple and no JVD Chest: COMMONS NORMALS: normal inspection of the chest and normal palpation of entire chest wall Resp: COMMON NORMALS: normal respiratory effort, No retractions and No use of accessory muscles EFFORT & INSPECTION: Yes able to speak in complete sentences Cardio: COMMON NORMALS: no JVD, regular rate, regular rhythm, No murmurs present (Cardio) and Peripheral pulses 2+ throughout RATE: regular rate RHYTHM: regular rhythm PERIPHERAL PULSES: Peripheral pulses 2+ throughout GI: COMMON NORMALS: Normal to inspection, nondistended, normoactive bowel sounds present, Soft to palpation, non-tender and no masses PALPATION: Yes Soft to palpation : COMMON NORMALS: Yes no CVA tenderness BLADDER/KIDNEY EXAM: Yes no CVA tenderness Back/Pelvis: COMMON NORMALS: no CVA tenderness, thoracic and lumbar spine normal to inspection, no thoracic nor lumbar tenderness, thoraco-lumbar ROM normal and straight leg raise negative bilaterally Extremity: COMMON NORMALS: normal to inspection, full ROM, capillary refill normal, no calf tenderness and no pedal edema Neuro: COMMON NORMALS: moves all extremities, no focal motor deficits and no sensory deficits noted SENSORIUM/ORIENTATION: Yes alert, Yes oriented to person and Yes oriented to place Psych: COMMON NORMALS: mental status grossly normal Skin: COMMON NORMALS: no rashes or lesions noted, no wounds and turgor normal GENERAL SKIN EXAM: no rashes or lesions noted and turgor normal Course Reevaluation(s): Reevaluation #1: Patient subjectively states he feels well and is not having any shortness of breath and has not had any shortness of breath since arrival to the emergency department. Repeat examination reveals him to be alert with normal vital signs no evidence of hypoxia etc. Auscultation of his chest reveals clear lungs at this time without any crackles rhonchi or rails. No evidence of respiratory distress. Patient is had good response to his dose of Lasix here and is clinically stable. No evidence to suggest ongoing ischemia, worsening heart failure etc. Think he is stable to return back to the long-term [facility] for continued usual care and management and observation for any recurrent symptoms. Time: 17:31 Vital Signs: Vital signs: Vital Signs Pulse Rate 80 02/23/23 17:18 Respiratory Rate 16 02/23/23 17:18 Blood Pressure 135/54 02/23/23 17:18 Pulse Oximetry 94 02/23/23 17:18 Oxygen Delivery Me thod Nasal Cannula 02/23/23 17:18 Oxygen Flow Rate 3 02/23/23 17:18 MDM - SOB/Dyspnea Medical Decision Making This gentleman was sent by the [facility] to our emergency department because of alleged shortness of breath as well as history of possible irregular heartbeat. On arrival from EMS patient initially appeared to be quite comfortable and no physical findings of concern. We will engage in a work-up to ensure no evidence of ACS, exacerbation of heart failure etc. however clinically he does not suggest any worrisome diagnosis on initial intake. Subsequent work-up to include chest x-ray, other ancillary studies and initiation of additional diuresis ensued. The patient was observed for period of time in the emergency department and received an additional dose of Lasix with subjective improvement and no recurrence of his symptoms while in the emergency department. There is noted that his troponin remained stable without any evidence of ischemic changes on serial EKGs. The patient did have PVCs noted initially on arrival but throughout his continued observation the recurrence of frequent PVCs did not reemerge. His chronic CHF likely resulted in a mild troponin elevation chronically. Nothing to suggest ACS at this time. We will have him take an additional dose of Lasix for the next 3 days to help pleat this diuresis likely contributing to his current presentation. Stable at this time for return to the long-term care facility. Medical Records I reviewed the patient's medical records. Lab Data I reviewed the patient's lab results. 02/23/23 11:40 02/23/23 11:40 Labs/Radiology: Radiology Impressions Chest X-Ray 02/23/23 16:31 IMPRESSION: 1. Cannot exclude early or Mild interstitial edema underlying 2. Chronic lung change. 3. Prominent right hilum is from pulmonary artery hypertension with no mass or adenopathy on the lateral view Laboratory Results WBC 10.0 10^3/uL (4.0-10.0) 02/23/23 11:40 RBC 5.49 10^6/uL (4.1-5.3) H 02/23/23 11:40 Hgb 11.1 g/dL (11.7-16.6) L 02/23/23 11:40 Hct 38.8 % (42.0-52.0) L 02/23/23 11:40 MCV 70.7 fl (80-94) L 02/23/23 11:40 MCH 20.2 pg (28.0-34.0) L 02/23/23 11:40 MCHC 28.6 g/dL (30.0-36.0) L 02/23/23 11:40 RDW 20.7 % (12.1-15.1) H 02/23/23 11:40 Plt Count 234 10^3/cmm (130-400) 02/23/23 11:40 MPV 9.9 fL (7.4-10.4) 02/23/23 11:40 Neut % (Auto) 71.7 % 02/23/23 11:40 Lymph % (Auto) 15.9 % 02/23/23 11:40 [place] % (Auto) 7.7 % 02/23/23 11:40 Eos % (Auto) 4.0 % 02/23/23 11:40 Baso % (Auto) 0.5 % 02/23/23 11:40 Neut # (Auto) 7.16 10^3/uL (1.8-7.7) 02/23/23 11:40 Lymph # (Auto) 1.6 10^3/uL (0.8-4.8) 02/23/23 11:40 [place] # (Auto) 0.8 10^3/uL (0.2-0.9) 02/23/23 11:40 Eos # (Auto) 0.4 10^3/uL (0.0-0.8) 02/23/23 11:40 Baso # (Auto) 0.1 10^3/uL (0.0-0.1) 02/23/23 11:40 Nucleated RBC % (auto) 0 % 02/23/23 11:40 Nucleated RBCs # 0.0 /100WBC 02/23/23 11:40 Sodium 136 mmol/L (136-145) 02/23/23 11:40 Potassium 4.8 mmol/L (3.5-5.1) 02/23/23 11:40 Chloride 98 mmol/L (98-107) 02/23/23 11:40 Carbon Dioxide 24 mmol/L (22-29) 02/23/23 11:40 Anion Gap 18.8 (5-19) 02/23/23 11:40 BUN 15 mg/dL (8-23) 02/23/23 11:40 Creatinine 1.0 mg/dL (0.7-1.2) 02/23/23 11:40 GFR Calculation Not Reportable 02/23/23 11:40 Glucose 162 mg/dL (65-115) H 02/23/23 11:40 Calculated Osmolality 286 mOsm/kg (285-295) 02/23/23 11:40 Calcium 8.9 mg/dL (8.5-10.5) 02/23/23 11:40 Troponin T Baseline 37 ng/L (0-15) H 02/23/23 11:40 Troponin T 120 Minute 39.07 ng/L (0-15) H 02/23/23 13:20 Delta Troponin T 2.07 ABS# (0-10) 02/23/23 13:20 NT-Pro-B Natriuret Pep 3800 pg/mL (0-450) H 02/23/23 11:40 EKG Data EKG 1: I personally reviewed and interpreted this EKG as follows: Interpretation: Contemporaneous review of EKG reveals a ventricular rate of 85 bpm. Normal IN interval, QRS duration, corrected QT interval. Normal axis. He does display underlying normal sinus rhythm with frequent unifocal premature ventricular complexes. No acute ST-T wave changes noted.Underlying rhythm is unchanged from prior tracings after reviewing multiple old tracings within the system. EKG 2: I personally reviewed and interpreted this EKG as follows: Interpretation: Contemporaneous review of the second EKG this visit reveals a ventricular rate of 85 bpm. Normal IN interval, QRS duration corrected QT interval. [place] is within normal limits. Compared with prior tracing the same date he has occasional unifocal PVCs noted. General normal sinus rhythm. Nonspecific ST-T wave changes which appear to be unchanged from prior tracings. Discharge Plan Discharge Patient Disposition: Other Inst w Plan Readm Clinical Impression: Acute exacerbation of CHF (congestive heart failure) Condition: Stable Prescriptions: No Action oxycodone-acetaminophen 5-325 mg tablet 1 tab PO Q6H PRN (Reason: pain) memantine 5 mg tablet 10 mg PO QAM magnesium hydroxide [Milk of Magnesia] 400 mg/5 mL Suspension 30 ml PO DAILY PRN (Reason: Constipation) Qty: 0 bisacodyl 10 mg Suppository 10 mg IN DAILY PRN (Reason: Constipation) Qty: 0 Fleet Enema 19-7 gram/118 mL Enema 118 ml IN DAILY PRN (Reason: Constipation) Qty: 0 aspirin 81 mg Tablet,Delayed Release (Dr/Ec) 81 mg PO DAILY Qty: 0 0RF acetaminophen 325 mg tablet 650 mg PO Q4H PRN (Reason: Mild/Mod Pain Or Temp >/= 101) buspirone 5 mg Tablet 10 mg PO TID albuterol sulfate 2.5 mg /3 mL (0.083 %) Solution For Nebulization 2.5 mg INHALATION Q4H PRN (Reason: Shortness Of Breath) trazodone 100 mg Tablet 150 mg PO BEDTIME levothyroxine 150 mcg Tablet 150 mcg PO DAILY colestipol 1 gram Tablet 2 g PO DAILY budesonide-formoterol [Symbicort] 160-4.5 mcg/actuation Hfa Aerosol Inhaler 2 puff INHALATION BID pantoprazole 40 mg Tablet,Delayed Release (Dr/Ec) 40 mg PO DAILY metformin 1,000 mg Tablet 1,000 mg PO BID folic acid 1 mg Tablet 1 mg PO DAILY hydroxyzine pamoate [Vistaril] 25 mg Capsule 25 mg PO Q8H PRN (Reason: Anxiety) duloxetine [Cymbalta] 60 mg Capsule,Delayed Release(Dr/Ec) 60 mg PO BID atorvastatin 20 mg tablet 20 mg PO BEDTIME cyanocobalamin (vitamin B-12) [Vitamin B-12] 1,000 mcg Tablet 1,000 mcg PO DAILY ferrous gluconate 324 mg (37.5 mg iron) Tablet 324 mg PO BIDWM Qty: 60 0RF furosemide [Lasix] 40 mg tablet 40 mg PO BID Qty: 90 3RF Levemir U-100 Insulin 100 unit/mL solution 30 unit SUBCUT BEDTIME Qty: 10 0RF metoprolol succinate 25 mg tablet extended release 24 hr 50 mg PO DAILY Qty: 60 0RF isosorbide mononitrate 30 mg Tablet Extended Release 24 Hr 30 mg PO DAILY Xanax 0.5 mg Tablet 0.5 mg PO DAILY tamsulosin 0.4 mg capsule 0.4 mg PO DAILY gabapentin 300 mg Capsule 300 mg PO TID finasteride 5 mg tablet 5 mg PO DAILY quetiapine 50 mg tablet 50 mg PO DAILY quetiapine 100 mg tablet 100 mg PO DAILY Referrals: Dheeraj Rodgers MD [Primary Care Provider] - 7-10 days Discharge Diet: Low Salt Discharge Activity: Increase activity as tolerated Activity Restrictions/Additional Instructions: The patient should continue all his usual medications with 1 exception. For the next 3 days we would like him to take an additional dose of 40 mg of Lasix at noon to help complete his diuresis. If he develops any worsening symptoms, fevers, chest pain etc. he should return to the emergency department for reevaluation. He should be reevaluated by his primary care doctor next 7 to 10 days. Coding Level of Care Code ED Sand [facility]older for Charity Jay
[2023-02-23 12:15] LABS: Basophils # 0.1 10^3/uL (0.0-0.1); Basophils % 0.5 %; Eosinophils # 0.4 10^3/uL (0.0-0.8); Hematocrit 38.8 % (42.0-52.0); Hemoglobin 11.1 g/dL (11.7-16.6); Lymphocytes # 1.6 10^3/uL (0.8-4.8); Lymphocytes % 15.9 %; Mean Corpuscular HGB Conc 28.6 g/dL (30.0-36.0); Mean Corpuscular Hemoglobin 20.2 pg (28.0-34.0); Mean Corpuscular Volume 70.7 fl (80-94); Mean Platelet Volume 9.9 fL (7.4-10.4); Monocytes # 0.8 10^3/uL (0.2-0.9); Monocytes % 7.7 %; Neutrophils # 7.16 10^3/uL (1.8-7.7); Neutrophils % 71.7 %; Nucleated Red Blood Cells % 0 %; Platelet Count 234 10^3/cmm (130-400); Red Blood Count 5.49 10^6/uL (4.1-5.3); Red Cell Distribution Width 20.7 % (12.1-15.1)
[2023-02-23 12:34] LABS: Slide Review Slide Review Perform; Troponin(5th) Baseline 37 ng/L (0-15)
[2023-02-23 12:44] LABS: Anion Gap 18.8 (5-19); Blood Urea Nitrogen 15 mg/dL (8-23); Calcium 8.9 mg/dL (8.5-10.5); Carbon Dioxide 24 mmol/L (22-29); Chloride 98 mmol/L (98-107); Glucose 162 mg/dL (65-115); NT Pro B Type Natriuretic Pept 3800 pg/mL (0-450); Osmolality Calculated 286 mOsm/kg (285-295); Potassium 4.8 mmol/L (3.5-5.1); Sodium 136 mmol/L (136-145)
[2023-02-23] MEDS: FUROsemide 10 mg/mL SDV 4mL 40 MG IVP (13:10)
[2023-02-23 13:17] VITALS: BP 131/71; PULSE 83; RESP 16; O2SAT 96
[2023-02-23 13:51] LABS: Troponin 5 2HR 39.07 ng/L (0-15)
--- NOTE | 2023-02-23 13:55 | ECG_ITS ---
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 Measurements Intervals Gary Rate: 85 P: 6 MS: 151 QRS: -2 QRSD: 116 T: 208 QT: 395 QTc: 471 Interpretive Statements SINUS RHYTHM WITH OCCASIONAL VENTRICULAR PREMATURE COMPLEXES LEFT VENTRICULAR HYPERTROPHY AND ST-T CHANGE [VOLTAGE CRITERIA PLUS ST/T ABNORMALITY] INFERIOR MYOCARDIAL INFARCTION , OF INDETERMINATE AGE [40+ ms Q WAVE AND/OR ST/T ABNORMALITY IN II/aVF] Compared to ECG 02/23/2023 12:29:27 Left ventricular hypertrophy now present ST (T wave) deviation now present Myocardial infarct finding still present Electronically Signed On 02-23-2023 21:13:43 CDT by Carolina Fang M.D. [email or web address]
[2023-02-23 13:56] LABS: Troponin 5 2HR Delta 2.07 ABS# (0-10)
[2023-02-23 14:59] VITALS: BP 119/66; PULSE 79; RESP 16; O2SAT 92
--- NOTE | 2023-02-23 16:31 | XR_ITS ---
WS: [id number] EXAMINATION: XR chest 2V* [id number] REASON FOR EXAM: follow up on portable this date COMPARISON: Early same day portable study ORDER DATE: 02/23/2023 4:33 PM FINDINGS: Lungs: Subtle Mild interstitial edema less prominent than on previous study and may be simulated by chronic lung change. Pleural spaces: Unremarkable. No pleural effusion. No pneumothorax. Heart/Mediastinum: The prominent right hilum is again noted along with a widened right paratracheal space. However on the lateral view there does not appear to be any associated mass Bones/joints: Unremarkable. XR/XR chest 2V* [id number] IMPRESSION: 1. Cannot exclude early or Mild interstitial edema underlying 2. Chronic lung change. 3. Prominent right hilum is from pulmonary artery hypertension with no mass or adenopathy on the lateral view
[2023-02-23 17:18] VITALS: BP 135/54; PULSE 80; RESP 16; O2SAT 94
[2023-02-23 19:12] VITALS: BP 156/84; RESP 20
== END 2023-02-23 20:08 | disposition other institution, planned readmission (95) ==
PROVIDERS: Emergency Provider Emergency Medicine; PCP Family Medicine
DX: I13.0 Hypertensive heart and chronic kidney disease with heart failure and stage 1 through stage 4 chronic kidney disease, or unspecified chronic kidney disease (principal); N18.2 Chronic kidney disease, stage 2 (mild); I50.23 Acute on chronic systolic (congestive) heart failure; Z87.891 Personal history of nicotine dependence
CPT/HCPCS: 71045; 71046; 80048; 83880; 84484; 85025; 93005; 96374; 99285; J1940

== ENCOUNTER → 2023-03-24 09:52 | Outpatient (BNVA) | payer MEDICARE, MEDICAID, SELFPAY | PROVIDERS: PCP Family Medicine; Visit Provider Internal Medicine Cardiovascular Disease | DX: I25.2 Old myocardial infarction (principal); I13.0 Hypertensive heart and chronic kidney disease with heart failure and stage 1 through stage 4 chronic kidney disease, or unspecified chronic kidney disease; E11.22 Type 2 diabetes mellitus with diabetic chronic kidney disease; N18.2 Chronic kidney disease, stage 2 (mild); I50.22 Chronic systolic (congestive) heart failure; Z87.891 Personal history of nicotine dependence; Z79.4 Long term (current) use of insulin; Z86.73 Personal history of transient ischemic attack (TIA), and cerebral infarction without residual deficits; R09.02 Hypoxemia | CPT/HCPCS: 99214 ==

== ENCOUNTER → 2023-05-22 10:41 | Outpatient (BNVA) | payer MEDICARE, MEDICAID, SELFPAY | PROVIDERS: PCP Family Medicine; Visit Provider Nurse Practitioner Family | DX: I25.10 Atherosclerotic heart disease of native coronary artery without angina pectoris (principal); Z87.891 Personal history of nicotine dependence; I13.0 Hypertensive heart and chronic kidney disease with heart failure and stage 1 through stage 4 chronic kidney disease, or unspecified chronic kidney disease; I50.22 Chronic systolic (congestive) heart failure; N18.2 Chronic kidney disease, stage 2 (mild); R94.31 Abnormal electrocardiogram [ECG] [EKG] | CPT/HCPCS: 93005; 99214 ==

== ENCOUNTER 2023-06-14 15:56 | Emergency (ER) | payer MEDICARE, MEDICAID, SELFPAY ==
[2023-06-14] VITALS (7 sets, daily range): BP systolic 107–159; BP diastolic 57–103; PULSE 83–87; RESP 18–22; TEMP 36.9; O2SAT 92–95; BMI 30.5
--- NOTE | 2023-06-14 16:05 | XRR_ITS ---
PROCEDURE INFORMATION: Exam: XR Chest Exam date and time: 06/14/2023 4:09 PM Age: 78 years old Clinical indication: Pain; Angina pectoris; Additional info: Cp TECHNIQUE: Imaging protocol: Radiologic exam of the chest. Views: 1 view. COMPARISON: CR XR chest 2V* [id number] 02/23/2023 4:34 PM FINDINGS: Tubes, catheters and devices: Neurostimulator leads are again seen 1 terminating in the upper thoracic level in the other in the lower midthoracic level. No significant change. Lungs: Unremarkable. No consolidation. Pleural spaces: Unremarkable. No pleural effusion. No pneumothorax. Heart/Mediastinum: Unremarkable. No cardiomegaly. Diaphragm: There is stable elevation the right hemidiaphragm. Bones/joints: Unremarkable. XR/XR chest 1V portable [id number] IMPRESSION: No acute findings. No significant change.
--- NOTE | 2023-06-14 16:05 | ED_ITS ---
HPI - Chest Pain General: Chief Complaint: Chest Pain Stated Complaint: chest pain Time Seen by Provider: 06/14/23 16:05 History of Present Illness: 78-year-old gentleman with extensive cardiac history presenting the emergency department for chest pain. Notes onset of symptoms approximately 2 hours prior to arrival at rest. Substernal with radiation to the neck. Fairly similar to previous episodes of chest pain. Prehospital administered nitro and aspirin. No other specific changes in health, exacerbating, or alleviating factors identified. Onset (ago): hour(s) Prior episodes: Yes Onset: during rest Severity: moderate Review of Systems General: Reports: 10 or more systems reviewed and unremarkable except in HPI and below PFSH ED PFSH: Medical History Acute blood loss anemia KOKI (acute kidney injury) Chest pain Chronic kidney disease, stage II (mild) COPD (chronic obstructive pulmonary disease) Coronary artery disease CVA (cerebral vascular accident) Exertional shortness of breath GI bleed Hypertension Hypothyroidism Insomnia disorder Ischemic bowel disease Lower back pain Pulmonary embolism Small bowel obstruction Spinal cord stimulator status Systolic congestive heart failure Last echocardiogram 12/19/2022: LVEF 35-40%, mild aortic stenosis (mean gradient 7 mmHg, EVERT 1.2 cm?) LVEF decreased from 55% in 2020. 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 Physical Exam Const: COMMON NORMALS: alert GENERAL APPEARANCE: cooperative and well developed HENMT: COMMON NORMALS: normocephalic and atraumatic HEAD & SCALP: normocephalic and atraumatic Eye: COMMON NORMALS: conjunctivae normal CONJUNCTIVA: Yes conjunctivae normal SCLERA: sclerae normal Neck/C-Spine: COMMON NORMALS: supple GENERAL: Yes trachea midline Resp: COMMON NORMALS: normal respiratory effort and clear to auscultation bilaterally EFFORT & INSPECTION: Yes able to speak in complete sentences AUSCULTATION: clear to auscultation bilaterally Cardio: COMMON NORMALS: regular rate and regular rhythm RATE: regular rate RHYTHM: regular rhythm GI: COMMON NORMALS: Soft to palpation PALPATION: Yes Soft to palpation and No Tenderness to palpation present (GI) Extremity: GENERAL: Yes normal exam except as noted and No edema Neuro: COMMON NORMALS: moves all extremities SENSORIUM/ORIENTATION: Yes alert and No Orientation impaired Psych: COMMON NORMALS: mental status grossly normal and Normal thought process present THOUGHT PROCESS: Normal thought process present Course Vital Signs: Vital signs: Vital Signs Temperature 98.4 F 06/14/23 15:57 Pulse Rate 83 06/15/23 00:21 Respiratory Rate 22 H 06/14/23 23:00 Blood Pressure 159/86 06/15/23 00:21 Pulse Oximetry 91 06/15/23 00:21 Oxygen Delivery Me thod Nasal Cannula 06/14/23 23:30 Oxygen Flow Rate 3 06/14/23 23:30 MDM - Chest Pain Medical Decision Making 78-year-old gentleman presenting with chest pain. Exam as above. Nontoxic. EKG demonstrates sinus rhythm with interventricular conduction delay and no nspecific ST segment abnormalities, no STEMI. Labs with no significant hematologic abnormalities or metabolic abnormalities to explain symptoms. Negative range 2-hour delta troponin. BNP is improved from prior. Chest x-ray with no lobar consolidation or pneumothorax. Patient improved with analgesia. Patient has had significant improvement and had myocardial perfusion scan and nuclear medicine on 08/17/2022. No evidence of acute OH at this visit. The results of ED evaluation were discussed with the patient including prescriptions and/or symptomatic cares (if applicable) including appropriate and responsible use, followup plan, and return precautions. The patient verbalized understanding and felt safe for discharge. Medical Records I reviewed the patient's medical records. Lab Data I reviewed the patient's lab results. 06/14/23 15:47 06/14/23 15:47 Radiology Impressions Chest X-Ray 06/14/23 16:05 IMPRESSION: No acute findings. No significant change. Laboratory Results WBC 9.3 10^3/uL (4.0-10.0) 06/14/23 15:47 RBC 5.29 10^6/uL (4.1-5.3) 06/14/23 15:47 Hgb 12.7 g/dL (11.7-16.6) 06/14/23 15:47 Hct 41.6 % (42.0-52.0) L 06/14/23 15:47 MCV 78.6 fl (80-94) L 06/14/23 15:47 MCH 24.0 pg (28.0-34.0) L 06/14/23 15:47 MCHC 30.5 g/dL (30.0-36.0) 06/14/23 15:47 RDW 18.3 % (12.1-15.1) H 06/14/23 15:47 Plt Count 263 10^3/cmm (130-400) 06/14/23 15:47 MPV 10.0 fL (7.4-10.4) 06/14/23 15:47 Neut % (Auto) 58.1 % 06/14/23 15:47 Lymph % (Auto) 27.0 % 06/14/23 15:47 Door % (Auto) 10.5 % 06/14/23 15:47 Eos % (Auto) 3.4 % 06/14/23 15:47 Baso % (Auto) 0.5 % 06/14/23 15:47 Neut # (Auto) 5.38 10^3/uL (1.8-7.7) 06/14/23 15:47 Lymph # (Auto) 2.5 10^3/uL (0.8-4.8) 06/14/23 15:47 Door # (Auto) 1.0 10^3/uL (0.2-0.9) H 06/14/23 15:47 Eos # (Auto) 0.3 10^3/uL (0.0-0.8) 06/14/23 15:47 Baso # (Auto) 0.1 10^3/uL (0.0-0.1) 06/14/23 15:47 Nucleated RBC % (auto) 0 % 06/14/23 15:47 Nucleated RBCs # 0.0 /100WBC 06/14/23 15:47 Sodium 138 mmol/L (136-145) 06/14/23 15:47 Potassium 5.0 mmol/L (3.5-5.1) 06/14/23 15:47 Chloride 99 mmol/L (98-107) 06/14/23 15:47 Carbon Dioxide 25 mmol/L (22-29) 06/14/23 15:47 Anion Gap 19.0 (5-19) 06/14/23 15:47 BUN 18 mg/dL (8-23) 06/14/23 15:47 Creatinine 1.0 mg/dL (0.7-1.2) 06/14/23 15:47 GFR Calculation Not Reportable 06/14/23 15:47 Glucose 203 mg/dL (65-115) H 06/14/23 15:47 Calculated Osmolality 294 mOsm/kg (285-295) 06/14/23 15:47 Calcium 9.2 mg/dL (8.5-10.5) 06/14/23 15:47 Total Bilirubin 0.7 mg/dL (0.15-1.2) 06/14/23 15:47 AST 30 U/L (0-40) 06/14/23 15:47 ALT 37 U/L (0-41) 06/14/23 15:47 Alkaline Phosphatase 70 U/L (40-130) 06/14/23 15:47 Troponin T Baseline 33 ng/L (0-15) H 06/14/23 15:47 Troponin T 120 Minute 31.04 ng/L (0-15) H 06/14/23 17:41 Delta Troponin T -1.96 ABS# (0-10) L 06/14/23 17:41 NT-Pro-B Natriuret Pep 675 pg/mL (0-450) H 06/14/23 15:47 Total Protein 7.5 g/dL (6.6-8.7) 06/14/23 15:47 Albumin 3.8 g/dL (3.5-5.2) 06/14/23 15:47 Globulin 3.7 g/dL (1.3-4.6) 06/14/23 15:47 Lipase 35 U/L (13-60) 06/14/23 15:47 Discharge Plan Discharge Patient Disposition: Home Clinical Impression: Chest pain, COPD (chronic obstructive pulmonary disease) Condition: Stable Prescriptions: New albuterol sulfate 90 mcg/actuation HFA aerosol inhaler 2 inh inhalation Q4H PRN (Reason: shortness of breath or wheezing) Qty: 8.5 0RF No Action oxycodone-acetaminophen 5-325 mg tablet 1 tab PO Q6H PRN (Reason: pain) memantine 5 mg tablet 10 mg PO QAM nitroglycerin 0.4 mg tablet, sublingual 0.4 mg sublingual Q5M PRN Rx Instructions: do not exceed 3 doses per episode magnesium hydroxide [Milk of Magnesia] 400 mg/5 mL Suspension 30 ml PO DAILY PRN (Reason: Constipation) Qty: 0 bisacodyl 10 mg Suppository 10 mg CO DAILY PRN (Reason: Constipation) Qty: 0 Fleet Enema 19-7 gram/118 mL Enema 118 ml CO DAILY PRN (Reason: Constipation) Qty: 0 aspirin 81 mg Tablet,Delayed Release (Dr/Ec) 81 mg PO DAILY Qty: 0 0RF acetaminophen 325 mg tablet 650 mg PO Q4H PRN (Reason: Mild/Mod Pain Or Temp >/= 101) buspirone 5 mg Tablet 10 mg PO TID albuterol sulfate 2.5 mg /3 mL (0.083 %) Solution For Nebulization 2.5 mg INHALATION Q4H PRN (Reason: Shortness Of Breath) trazodone 100 mg Tablet 150 mg PO BEDTIME levothyroxine 150 mcg Tablet 150 mcg PO DAILY colestipol 1 gram Tablet 2 g PO DAILY budesonide-formoterol [Symbicort] 160-4.5 mcg/actuation Hfa Aerosol Inhaler 2 puff INHALATION BID pantoprazole 40 mg Tablet,Delayed Release (Dr/Ec) 40 mg PO DAILY metformin 1,000 mg Tablet 1,000 mg PO BID folic acid 1 mg Tablet 1 mg PO DAILY hydroxyzine pamoate [Vistaril] 25 mg Capsule 25 mg PO Q8H PRN (Reason: Anxiety) duloxetine [Cymbalta] 60 mg Capsule,Delayed Release(Dr/Ec) 60 mg PO BID atorvastatin 20 mg tablet 20 mg PO BEDTIME cyanocobalamin (vitamin B-12) [Vitamin B-12] 1,000 mcg Tablet 1,000 mcg PO DAILY ferrous gluconate 324 mg (37.5 mg iron) Tablet 324 mg PO BIDWM Qty: 60 0RF furosemide [Lasix] 40 mg tablet 40 mg PO BID Qty: 90 3RF Levemir U-100 Insulin 100 unit/mL solution 30 unit SUBCUT BEDTIME Qty: 10 0RF metoprolol succinate 25 mg tablet extended release 24 hr 50 mg PO DAILY Qty: 60 0RF Xanax 0.5 mg Tablet 0.5 mg PO DAILY tamsulosin 0.4 mg capsule 0.4 mg PO DAILY gabapentin 300 mg Capsule 300 mg PO TID finasteride 5 mg tablet 5 mg PO DAILY quetiapine 50 mg tablet 50 mg PO DAILY quetiapine 100 mg tablet 100 mg PO DAILY isosorbide mononitrate 30 mg tablet extended release 24 hr 60 mg PO DAILY Discharge Orders: Discharge ED (Routine); Ordered 06/14/23 Ordered By: Chato Mars Referrals: Dheeraj Rodgers MD [Primary Care Provider] - Discharge Diet: Usual diet Discharge Activity: Resume usual activity Patient Instructions: Chest Pain (ED), COPD (Chronic Obstructive Pulmonary Disease) (ED) Activity Restrictions/Additional Instructions: Thank you for visiting the emergency department. You were seen and evaluated for chest pain. The exact cause of your symptoms is unclear however given ED and prior cardiac evaluation you do not require inpatient management at this time. I will prescribe steroids and antibiotics. Please also use your albuterol metered-dose inhaler 2 puffs every 4 hours for 24 hours followed by 2 puffs every 6 hours for 24 hours followed by 2 puffs every 8 hours for 24 hours and then return to the normal schedule. You do require outpatient follow-up with cardiology and your primary care provider. Please continue your medications. I will message case management. Return for worsening or uncontrolled symptoms or anything else that you are concerned about and feel needs emergency department evaluation. 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
[2023-06-14 16:13] LABS: Basophils # 0.1 10^3/uL (0.0-0.1); Basophils % 0.5 %; Eosinophils # 0.3 10^3/uL (0.0-0.8); Eosinophils % 3.4 %; Hematocrit 41.6 % (42.0-52.0); Hemoglobin 12.7 g/dL (11.7-16.6); Lymphocytes # 2.5 10^3/uL (0.8-4.8); Mean Corpuscular HGB Conc 30.5 g/dL (30.0-36.0); Mean Corpuscular Volume 78.6 fl (80-94); Monocytes % 10.5 %; Neutrophils # 5.38 10^3/uL (1.8-7.7); Neutrophils % 58.1 %; Nucleated Red Blood Cells % 0 %; Platelet Count 263 10^3/cmm (130-400); Red Blood Count 5.29 10^6/uL (4.1-5.3); Red Cell Distribution Width 18.3 % (12.1-15.1); White Blood Count 9.3 10^3/uL (4.0-10.0)
--- NOTE | 2023-06-14 16:16 | ECG_ITS ---
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 Measurements Intervals [place] Rate: 88 P: -17 AK: 148 QRS: -11 QRSD: 129 T: 140 QT: 381 QTc: 461 Interpretive Statements SINUS RHYTHM LEFT VENTRICULAR HYPERTROPHY AND ST-T CHANGE [VOLTAGE CRITERIA PLUS ST/T ABNORMALITY] Diffuse nonspecific T wave changes INFERIOR MYOCARDIAL INFARCTION , PROBABLY OLD [40+ ms Q WAVE AND/OR ST/T ABNORMALITY IN II/aVF] Compared to ECG 05/22/2023 10:45:56 No significant changes Electronically Signed On 06-14-2023 23:26:38 CDT by Carolina Fang M.D. [id number]
[2023-06-14 16:40] LABS: Troponin(5th) Baseline 33 ng/L (0-15)
[2023-06-14 16:46] LABS: Alanine Aminotransferase 37 U/L (0-41); Albumin Level 3.8 g/dL (3.5-5.2); Alkaline Phosphatase 70 U/L (40-130); Aspartate Amino Transferase 30 U/L (0-40); Blood Urea Nitrogen 18 mg/dL (8-23); Calcium 9.2 mg/dL (8.5-10.5); Carbon Dioxide 25 mmol/L (22-29); Chloride 99 mmol/L (98-107); Globulin 3.7 g/dL (1.3-4.6); Glucose 203 mg/dL (65-115); Lipase 35 U/L (13-60); NT Pro B Type Natriuretic Pept 675 pg/mL (0-450); Osmolality Calculated 294 mOsm/kg (285-295); Sodium 138 mmol/L (136-145); Total Bilirubin 0.7 mg/dL (0.15-1.2); Total Protein 7.5 g/dL (6.6-8.7)
--- NOTE | 2023-06-14 18:05 | ECG_ITS ---
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 Measurements Intervals [place] Rate: 84 P: -15 [place]: 165 QRS: -4 QRSD: 122 T: 149 QT: 381 QTc: 450 Interpretive Statements SINUS RHYTHM LEFT VENTRICULAR HYPERTROPHY AND ST-T CHANGE [VOLTAGE CRITERIA PLUS ST/T ABNORMALITY] INFERIOR MYOCARDIAL INFARCTION , PROBABLY OLD [40+ ms Q WAVE AND/OR ST/T ABNORMALITY IN II/aVF] Compared to ECG 06/14/2023 16:16:47 No significant changes Electronically Signed On 06-14-2023 23:37:48 CDT by Carolina Fang M.D. [id number]
[2023-06-14 18:23] LABS: Troponin 5 2HR 31.04 ng/L (0-15)
[2023-06-14 18:35] LABS: Troponin 5 2HR Delta -1.96 ABS# (0-10)
--- NOTE | 2023-06-15 00:10 | PC.NURSE ---
Shree Guerra here to transport patient to [facility].
[2023-06-15 00:21] VITALS: BP 159/86; PULSE 83; O2SAT 91
--- NOTE | 2023-06-15 12:29 | DCPLANNER ---
Addendum entered by Dominga Vásquez 06/29/23 10:29: Patient attended appointment scheduled with [facility]. Addendum entered by Dominga Vásquez 06/20/23 09:38: Patient has a follow up appointment scheduled for Monday, June 28, 2023 at 10:30 with Corine Russell at [facility]. Original Note: assistant case manager had message to schedule a follow up appointment for patient with cardiology. assistant case manager sent patients information to the front office staff at [facility]. Patients information will be printed and reviewed. Clinic will call patient with appointment information.
== END 2023-06-15 00:23 | disposition home or self-care (01) ==
PROVIDERS: Emergency Provider Emergency Medicine; PCP Family Medicine
DX: R07.9 Chest pain, unspecified (principal); J44.9 Chronic obstructive pulmonary disease, unspecified; Z79.82 Long term (current) use of aspirin; Z79.4 Long term (current) use of insulin; Z79.84 Long term (current) use of oral hypoglycemic drugs; Z87.891 Personal history of nicotine dependence; I13.0 Hypertensive heart and chronic kidney disease with heart failure and stage 1 through stage 4 chronic kidney disease, or unspecified chronic kidney disease; N18.2 Chronic kidney disease, stage 2 (mild); I50.9 Heart failure, unspecified; I25.10 Atherosclerotic heart disease of native coronary artery without angina pectoris; Z86.73 Personal history of transient ischemic attack (TIA), and cerebral infarction without residual deficits
CPT/HCPCS: 36415; 71045; 80053; 83690; 83880; 84484; 85025; 93005; 99285

== ENCOUNTER 2023-06-26 04:17 | Emergency (ER) | payer MEDICARE, MEDICAID, SELFPAY ==
[2023-06-26 04:17] VITALS: BP 114/66; PULSE 87; RESP 18; TEMP 36.8; O2SAT 92; BMI 31.5
--- NOTE | 2023-06-26 04:18 | XRR_ITS ---
PROCEDURE INFORMATION: Exam: XR Right Hip Exam date and time: 06/26/2023 4:30 AM Age: 78 years old Clinical indication: Injury or trauma; Blunt trauma (contusions or hematomas); Right; Patient HX: Arrival via EMS from skilled nursing for fall. C/O RT hip pain. TECHNIQUE: Imaging protocol: Radiologic exam of the right hip. Views: 1 view hip with pelvis when performed. COMPARISON: CT abdomen pelvis wo con [id number] 12/19/2022 11:48 AM FINDINGS: Bones/joints: No fracture or dislocation. There is mild degenerative changes of the right knee, manifested by joint space narrowing and periarticular osteophytes. Soft tissues: Normal. XR/XR hip RT 2-3V wo/w pel* [id number] IMPRESSION: 1. No fracture or dislocation. 2. Mild right hip osteoarthrosis.
--- NOTE | 2023-06-26 04:19 | W.ED.FALL ---
HPI - Fall General: Chief Complaint: Extremity Injury, Lower Stated Complaint: Fall/ hip pain Time Seen by Provider: 06/26/23 04:18 Source: patient and EMS Mode of arrival: EMS Limitations: no limitations History of Present Illness: 78-year-old male who states that he had a fall [facility] 6 hours ago fell out of bed landing on his right hip he has some slight right hip pain he rates pain a 2 out of 10 is worse with movement denies hitting his head denies any other injuries. Associated symptoms-after fall: Denies abdominal pain, chest pain, headache(s) or neck pain Review of Systems Const: Denies: fever(s) or chills ENMT: Denies: throat pain or dental pain Card: Denies: chest pain Resp: Denies: dyspnea GI: Denies: abdominal pain, nausea, vomiting or diarrhea Musc: Reports: extremity pain; Denies: neck pain or back pain Skin/Breast: Denies: rash Neuro: Denies: headache(s) PFSH ED PFSH: Medical History Acute blood loss anemia KOKI (acute kidney injury) Chest pain Chronic kidney disease, stage II (mild) COPD (chronic obstructive pulmonary disease) Coronary artery disease CVA (cerebral vascular accident) Exertional shortness of breath GI bleed Hypertension Hypothyroidism Insomnia disorder Ischemic bowel disease Lower back pain Pulmonary embolism Small bowel obstruction Spinal cord stimulator status Systolic congestive heart failure Last echocardiogram 12/19/2022: LVEF 35-40%, mild aortic stenosis (mean gradient 7 mmHg, EVERT 1.2 cm?) LVEF decreased from 55% in 2020. 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 Physical Exam Const: COMMON NORMALS: no acute distress, patient oriented x3 and healthy appearing HENMT: COMMON NORMALS: normocephalic and atraumatic HEAD & SCALP: normocephalic and atraumatic Neck/C-Spine: COMMON NORMALS: full ROM and supple Chest: COMMONS NORMALS: normal inspection of the chest and normal palpation of entire chest wall Resp: COMMON NORMALS: normal respiratory effort, No retractions, No use of accessory muscles and clear to auscultation bilaterally AUSCULTATION: clear to auscultation bilaterally Cardio: COMMON NORMALS: regular rate, regular rhythm and No murmurs present (Cardio) RATE: regular rate RHYTHM: regular rhythm GI: COMMON NORMALS: Normal to inspection, nondistended, normoactive bowel sounds present, Soft to palpation, non-tender and no masses PALPATION: Yes Soft to palpation Extremity: OTHER: Slight tenderness to right hip no deformity noted he has full range of motion distal pulses intact Neuro: COMMON NORMALS: patient oriented x3, moves all extremities and no focal motor deficits Psych: COMMON NORMALS: mental status grossly normal, Normal thought process present and cooperative THOUGHT PROCESS: Normal thought process present Skin: COMMON NORMALS: no rashes or lesions noted and no wounds GENERAL SKIN EXAM: no rashes or lesions noted Course Vital Signs: Vital signs: Vital Signs Temperature 98.2 F 06/26/23 04:17 Pulse Rate 87 06/26/23 04:17 Respiratory Rate 18 06/26/23 04:17 Blood Pressure 114/66 06/26/23 04:17 Pulse Oximetry 92 06/26/23 04:17 Oxygen Delivery Me thod Nasal Cannula 06/26/23 04:17 Oxygen Flow Rate 3 06/26/23 04:17 MDM - Fall Medical Decision Making Patient presents with hip contusion from a fall x-ray shows no acute fracture he is able to stand with assistance here he is stable for [facility] Lab Data Radiology Impressions Hip/Pelvis X-Ray 06/26/23 04:18 IMPRESSION: 1. No fracture or dislocation. 2. Mild right hip osteoarthrosis. Discharge Plan Discharge Patient Disposition: Home Clinical Impression: Contusion of hip, right, Fall Condition: Stable Prescriptions: No Action oxycodone-acetaminophen 5-325 mg tablet 1 tab PO Q6H PRN (Reason: pain) memantine 5 mg tablet 10 mg PO QAM nitroglycerin 0.4 mg tablet, sublingual 0.4 mg sublingual Q5M PRN Rx Instructions: do not exceed 3 doses per episode magnesium hydroxide [Milk of Magnesia] 400 mg/5 mL Suspension 30 ml PO DAILY PRN (Reason: Constipation) Qty: 0 bisacodyl 10 mg Suppository 10 mg KS DAILY PRN (Reason: Constipation) Qty: 0 Fleet Enema 19-7 gram/118 mL Enema 118 ml KS DAILY PRN (Reason: Constipation) Qty: 0 aspirin 81 mg Tablet,Delayed Release (Dr/Ec) 81 mg PO DAILY Qty: 0 0RF acetaminophen 325 mg tablet 650 mg PO Q4H PRN (Reason: Mild/Mod Pain Or Temp >/= 101) buspirone 5 mg Tablet 10 mg PO TID albuterol sulfate 2.5 mg /3 mL (0.083 %) Solution For Nebulization 2.5 mg INHALATION Q4H PRN (Reason: Shortness Of Breath) trazodone 100 mg Tablet 150 mg PO BEDTIME levothyroxine 150 mcg Tablet 150 mcg PO DAILY colestipol 1 gram Tablet 2 g PO DAILY budesonide-formoterol [Symbicort] 160-4.5 mcg/actuation Hfa Aerosol Inhaler 2 puff INHALATION BID pantoprazole 40 mg Tablet,Delayed Release (Dr/Ec) 40 mg PO DAILY metformin 1,000 mg Tablet 1,000 mg PO BID folic acid 1 mg Tablet 1 mg PO DAILY hydroxyzine pamoate [Vistaril] 25 mg Capsule 25 mg PO Q8H PRN (Reason: Anxiety) duloxetine [Cymbalta] 60 mg Capsule,Delayed Release(Dr/Ec) 60 mg PO BID atorvastatin 20 mg tablet 20 mg PO BEDTIME cyanocobalamin (vitamin B-12) [Vitamin B-12] 1,000 mcg Tablet 1,000 mcg PO DAILY ferrous gluconate 324 mg (37.5 mg iron) Tablet 324 mg PO BIDWM Qty: 60 0RF furosemide [Lasix] 40 mg tablet 40 mg PO BID Qty: 90 3RF Levemir U-100 Insulin 100 unit/mL solution 30 unit SUBCUT BEDTIME Qty: 10 0RF metoprolol succinate 25 mg tablet extended release 24 hr 50 mg PO DAILY Qty: 60 0RF albuterol sulfate 90 mcg/actuation HFA aerosol inhaler 2 inh inhalation Q4H PRN (Reason: shortness of breath or wheezing) Qty: 8.5 0RF Xanax 0.5 mg Tablet 0.5 mg PO DAILY tamsulosin 0.4 mg capsule 0.4 mg PO DAILY gabapentin 300 mg Capsule 300 mg PO TID finasteride 5 mg tablet 5 mg PO DAILY quetiapine 50 mg tablet 50 mg PO DAILY quetiapine 100 mg tablet 100 mg PO DAILY isosorbide mononitrate 30 mg tablet extended release 24 hr 60 mg PO DAILY Discharge Orders: Discharge ED (Routine); Ordered 06/26/23 Ordered By: Michelle Langford Referrals: Dheeraj Rodgers MD [Primary Care Provider] - 1-3 days Discharge Diet: Advance as tolerated Discharge Activity: Resume usual activity Patient Instructions: Hip Contusion (ED) Coding Level of Care Code ED 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
[2023-06-26 05:00] VITALS: BP 121/78; PULSE 81; PULSE 87; RESP 20; RESP 22; O2SAT 94; O2SAT 95
[2023-06-26 05:30] VITALS: BP 114/53; PULSE 74; RESP 19; O2SAT 95
[2023-06-26 06:00] VITALS: BP 99/59; PULSE 84; RESP 14; O2SAT 95
--- NOTE | 2023-06-26 06:03 | PC.NURSE ---
Attempted to reposition pt in bed, pt refused.
[2023-06-26 07:07] VITALS: BP 123/76; PULSE 84; RESP 16; O2SAT 95
== END 2023-06-26 07:44 | disposition home or self-care (01) ==
PROVIDERS: Emergency Provider Emergency Medicine; PCP Family Medicine
DX: S70.01XA Contusion of right hip, initial encounter (principal); Z79.82 Long term (current) use of aspirin; Z79.4 Long term (current) use of insulin; I13.0 Hypertensive heart and chronic kidney disease with heart failure and stage 1 through stage 4 chronic kidney disease, or unspecified chronic kidney disease; N18.2 Chronic kidney disease, stage 2 (mild); I50.20 Unspecified systolic (congestive) heart failure; J44.9 Chronic obstructive pulmonary disease, unspecified; Z86.73 Personal history of transient ischemic attack (TIA), and cerebral infarction without residual deficits; Z87.891 Personal history of nicotine dependence; W06.XXXA Fall from bed, initial encounter; Y92.129 Unspecified place in nursing home as the place of occurrence of the external cause
CPT/HCPCS: 73502; 99283

== ENCOUNTER → 2023-06-28 10:10 | Outpatient (BNVA) | payer MEDICARE, MEDICAID, SELFPAY | PROVIDERS: PCP Family Medicine; Visit Provider Nurse Practitioner Family | DX: I25.10 Atherosclerotic heart disease of native coronary artery without angina pectoris (principal); I11.0 Hypertensive heart disease with heart failure; I50.20 Unspecified systolic (congestive) heart failure; Z87.891 Personal history of nicotine dependence | CPT/HCPCS: 99214 ==

== ENCOUNTER 2023-07-03 16:24 | Inpatient (IN) | payer MEDICARE, MEDICAID, SELFPAY ==
[2023-07-03] VITALS (27 sets, daily range): BP systolic 87–131; BP diastolic 45–77; PULSE 68–84; RESP 13–26; TEMP 36.1–36.4; O2SAT 89–99; BMI 31.6; BMI 29.5
--- NOTE | 2023-07-03 16:27 | XRR_ITS ---
PROCEDURE INFORMATION: Exam: XR Chest Exam date and time: 07/03/2023 5:05 PM Age: 78 years old Clinical indication: Dyspnea; Additional info: Dyspnea/cough TECHNIQUE: Imaging protocol: Radiologic exam of the chest. Views: 1 view. COMPARISON: CR XR chest 1V portable [id number] 06/14/2023 4:09 PM FINDINGS: Lungs: Interval appearance of moderate left mid and lower lung field pneumonia. Pleural spaces: Unremarkable. No pleural effusion. No pneumothorax. Heart/Mediastinum: Unremarkable. No cardiomegaly. Vasculature: Calcification of the thoracic aorta and/or great vessels consistent with atherosclerotic vessel disease. Bones/joints: Unremarkable. XR/XR chest 1V portable [id number] IMPRESSION: Interval appearance of moderate left mid and lower lung field pneumonia.
--- NOTE | 2023-07-03 16:33 | ECG_ITS ---
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 Measurements Intervals [place] Rate: 83 P: -4 MA: 170 QRS: 4 QRSD: 119 T: 159 QT: 415 QTc: 489 Interpretive Statements SINUS RHYTHM INFERIOR MYOCARDIAL INFARCTION , PROBABLY OLD [40+ ms Q WAVE AND/OR ST/T ABNORMALITY IN II/aVF] MODERATE T-WAVE ABNORMALITY, CONSIDER LATERAL ISCHEMIA [-0.1+ mV T-WAVE IN I/aVL/V5/V6] Compared to ECG 06/14/2023 18:23:17 T-wave abnormality now present Possible ischemia now present Left ventricular hypertrophy no longer present ST (T wave) deviation no longer present Myocardial infarct finding still present Electronically Signed On 07-03-2023 17:13:03 CDT by Dominique Corona M.D. [id number]
--- NOTE | 2023-07-03 16:43 | ED_ITS ---
HPI - General Adult General: Chief complaint: Altered Mental Status Stated complaint: ams Time Seen by Provider: 07/03/23 16:27 Source: patient Mode of arrival: EMS History of Present Illness: 78-year-old male presents emergency room with altered mental status. He is aroused by verbal stimuli and is requiring 10 L via mask. He does answer questions denies any chest pain abdominal pain no dysuria urgency or frequency vomiting or diarrhea. He does admit to some shortness of breath. Onset (ago): hour(s) Relieving factors: none Exacerbating factors: none Associated symptoms: Reports confusion, cough, dyspnea, malaise and short of breath; Deny chest pain, vomiting or weakness Review of Systems General: Reports: Other (Limited review of systems suspect due to patient's mental condition) Const: Reports: malaise; Denies: fever(s) or chills Card: Denies: chest pain Resp: Reports: dyspnea GI: Denies: abdominal pain or vomiting : Denies: dysuria, urinary frequency or urinary urgency Neuro: Reports: confusion PFSH ED PFSH: Medical History Acute blood loss anemia KOKI (acute kidney injury) Chest pain Chronic kidney disease, stage II (mild) COPD (chronic obstructive pulmonary disease) Coronary artery disease CVA (cerebral vascular accident) Exertional shortness of breath GI bleed Hypertension Hypothyroidism Insomnia disorder Ischemic bowel disease Lower back pain Pulmonary embolism Small bowel obstruction Spinal cord stimulator status Systolic congestive heart failure Last echocardiogram 12/19/2022: LVEF 35-40%, mild aortic stenosis (mean gradient 7 mmHg, EVERT 1.2 cm?) LVEF decreased from 55% in 2020. 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: Resident of a skilled nursing Physical Exam Const: GENERAL APPEARANCE: lethargic NUTRITIONAL APPEARANCE: obese ORIENTATION/CONSCIOUSNESS: Yes lethargic HENMT: COMMON NORMALS: normocephalic, atraumatic and hearing grossly normal bilaterally HEAD & SCALP: normocephalic and atraumatic Resp: COMMON NORMALS: normal respiratory effort, No retractions and No use of accessory muscles AUSCULTATION: rales on the left Cardio: RHYTHM: abnormal rhythm irregularly irregular GI: COMMON NORMALS: No hepatosplenomegaly present AUSCULTATION: Yes normoactive bowel sounds PALPATION: Yes Tenderness to palpation present (GI) (Diffuse nonspecific), No Guarding due to palpation present (GI) and Yes No h epatosplenomegaly present Extremity: COMMON NORMALS: normal to inspection, capillary refill normal and no calf tenderness GENERAL: Yes edema (Trace lower extremity) Neuro: SENSORIUM/ORIENTATION: Yes lethargic Skin: COMMON NORMALS: no rashes or lesions noted GENERAL SKIN EXAM: no rash es or lesions noted Course Vital Signs: Vital signs: Vital Signs Temperature 98.0 F 07/04/23 00:00 Pulse Rate 76 07/04/23 01:15 Respiratory Rate 17 07/04/23 01:15 Blood Pressure 121/80 07/04/23 01:15 Pulse Oximetry 95 07/04/23 01:15 Oxygen Delivery Me thod Nasal Cannula 07/04/23 00:00 Oxygen Flow Rate 4 07/04/23 00:00 [facility] - General Adult Medical Decision Making Encephalopathy with acute hypoxic respiratory failure. Mild acute kidney injury as well. Elevated lactic acid. Patient does not meet criteria for septic shock did not give fluid bolus because felt fluid bolus would worsen his condition vital signs are stable blood pressure is stable. Patient has a significantly reduced ejection fraction and large fluid bolus as per protocol would further complicate his condition by exacerbating heart failure. Monitor for change in condition discussed with hospitalist orders written Medical Records I reviewed the patient's medical records. Lab Data I reviewed the patient's lab results. 07/04/23 04:04 07/03/23 17:14 Radiology Impressions Chest/Abdomen/Pelvis CT 07/03/23 18:22 IMPRESSION: 1. Pneumonia in the left upper and lower lobes. 2. Emphysema with interstitial scarring. IMPRESSION: 1. No acute findings. 2. Small nonobstructing renal calculi. 3. Diverticulosis of the colon. Head CT 07/03/23 18:51 IMPRESSION: 1. No acute intracranial abnormality. Chest X-Ray 07/03/23 20:56 IMPRESSION: Pneumonia in the left lung. Laboratory Results WBC 13.6 10^3/uL (4.0-10.0) H 07/03/23 17:14 RBC 4.92 10^6/uL (4.1-5.3) 07/03/23 17:14 Hgb 11.8 g/dL (11.7-16.6) 07/03/23 17:14 Hct 39.7 % (42.0-52.0) L 07/03/23 17:14 MCV 80.7 fl (80-94) 07/03/23 17:14 MCH 24.0 pg (28.0-34.0) L 07/03/23 17:14 MCHC 29.7 g/dL (30.0-36.0) L 07/03/23 17:14 RDW 17.8 % (12.1-15.1) H 07/03/23 17:14 Plt Count 254 10^3/cmm (130-400) 07/03/23 17:14 MPV 10.2 fL (7.4-10.4) 07/03/23 17:14 Neut % (Auto) 84.7 % 07/03/23 17:14 Lymph % (Auto) 8.9 % 07/03/23 17:14 [place] % (Auto) 5.1 % 07/03/23 17:14 Eos % (Auto) 0.1 % 07/03/23 17:14 Baso % (Auto) 0.4 % 07/03/23 17:14 Neut # (Auto) 11.55 10^3/uL (1.8-7.7) H 07/03/23 17:14 Lymph # (Auto) 1.2 10^3/uL (0.8-4.8) 07/03/23 17:14 [place] # (Auto) 0.7 10^3/uL (0.2-0.9) 07/03/23 17:14 Eos # (Auto) 0.0 10^3/uL (0.0-0.8) 07/03/23 17:14 Baso # (Auto) 0.1 10^3/uL (0.0-0.1) 07/03/23 17:14 Nucleated RBC % (auto) 0 % 07/03/23 17:14 Nucleated RBCs # 0.0 /100WBC 07/03/23 17:14 PT 14.10 SECONDS (12.1-14.9) 07/03/23 17:14 INR 1.06 (0.8-1.2) 07/03/23 17:14 D-Dimer 3.52 ug/mIFEU (0-0.59) H 07/03/23 17:14 Specimen Type Arterial 07/03/23 17:03 Sample Site Radial, left 07/03/23 17:03 ABG pH 7.34 (7.35-7.45) L 07/03/23 17:03 ABG pCO2 41.1 mmHg (35-45) 07/03/23 17:03 ABG pO2 104.0 mmHg (80.0-100.0) H 07/03/23 17:03 ABG HCO3 22.1 mmol/L (22-26) 07/03/23 17:03 ABG O2 Saturation 98.4 07/03/23 17:03 ABG Base Excess -3.5 mmol/L (-2.0-2.0) L 07/03/23 17:03 Fan Test Pos 07/03/23 17:03 A-a O2 Gradient Not Reportable 07/03/23 17:03 Hematocrit 37.2 % (42-52) L 07/03/23 17:03 Hgb O2 Saturation 96.5 % (95-100) 07/03/23 17:03 Carboxyhemoglobin 1.6 %THgb (0.4-20.1) 07/03/23 17:03 Methemoglobin 0.4 % (0.4-1.5) 07/03/23 17:03 Total Hemoglobin 12.1 g/dL (14-18) L 07/03/23 17:03 Sodium 139.0 mmol/L (131-143) 07/03/23 17:03 Potassium 4.7 mmol/L (3.5-5.0) 07/03/23 17:03 Glucose 272.0 mg/dL (70-115) H 07/03/23 17:03 Ionized Calcium 1.2 mmol/L (1.1-1.4) 07/03/23 17:03 O2 Delivery Device Nrb 07/03/23 17:03 O2 Liters/Min 12.0 % 07/03/23 17:03 [employer] Operator ID [place] 07/03/23 17:03 Sodium 137 mmol/L (136-145) 07/03/23 17:14 Potassium 4.6 mmol/L (3.5-5.1) 07/03/23 17:14 Chloride 98 mmol/L (98-107) 07/03/23 17:14 Carbon Dioxide 20 mmol/L (22-29) L 07/03/23 17:14 Anion Gap 23.6 (5-19) H 07/03/23 17:14 BUN 21 mg/dL (8-23) 07/03/23 17:14 Creatinine 1.9 mg/dL (0.7-1.2) H 07/03/23 17:14 GFR Calculation Not Reportable 07/03/23 17:14 Glucose 252 mg/dL (65-115) H 07/03/23 17:14 Estimat Average Glucose 200 07/03/23 17:14 Hemoglobin A1c 8.6 % (4.0-6.0) H 07/03/23 17:14 Calculated Osmolality 296 mOsm/kg (285-295) H 07/03/23 17:14 Calcium 9.0 mg/dL (8.5-10.5) 07/03/23 17:14 Total Bilirubin 0.9 mg/dL (0.15-1.2) 07/03/23 17:14 AST 17 U/L (0-40) 07/03/23 17:14 ALT 22 U/L (0-41) 07/03/23 17:14 Alkaline Phosphatase 57 U/L (40-130) 07/03/23 17:14 Total Protein 6.9 g/dL (6.6-8.7) 07/03/23 17:14 Albumin 3.8 g/dL (3.5-5.2) 07/03/23 17:14 Globulin 3.1 g/dL (1.3-4.6) 07/03/23 17:14 Triglycerides 113 mg/dL (0-150) 07/03/23 17:14 Cholesterol 102 mg/dL (0-200) 07/03/23 17:14 LDL Cholesterol, Calc 43 mg/dL (50-129) L 07/03/23 17:14 HDL Cholesterol 36 mg/dL (60-100) L 07/03/23 17:14 LDL/HDL Ratio 1.19 RATIO (0.00-3.22) 07/03/23 17:14 Cholesterol/HDL Ratio 2.83 mg/dL (1.0-5.00) 07/03/23 17:14 TSH 1.06 uIU/mL (0.27-4.20) 07/03/23 17:14 Critical Care Time Critical Care Time: Critical Care Time: Yes Total Critical Care Time: 35 Attestation: The high probability of a clinically significant, sudden or life threatening deterioration of the patient's respiratory system(s) required my full and direct attention, intervention and personal management. The critical care time is as shown. This time is in addition to time spent performing any reported procedures but includes the following: [x] Data and vital sign review and interpretation [x] Patient assessment, examination and intervention [x] Documentation [x] Medication orders and management Discharge Plan Discharge Patient Disposition: Admitted As Inpatient Admit Provider: Terry Waterman Clinical Impression: Pneumonia, Acute renal failure superimposed on stage 2 chronic kidney disease, Systolic congestive heart failure, Acute respiratory failure with hypoxia, Septic shock, Encephalopathy Condition: Stable Coding Level of Care Code 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
[2023-07-03 17:14] LABS: ABG PCO2 41.1 mmHg (35-45); ABG PH Result 7.34 (7.35-7.45); Arterial Blood Gas Hematocrit 37.2 % (42-52); Base Excess ABG -3.5 mmol/L (-2.0-2.0); Blood Gas Allen Test Pos; Blood Gas Operator Identificat WALCI; Blood Gas Sample Site Radial, left; Blood Gas Sample Type Arterial; Carboxyhemoglobin 1.6 %THgb (0.4-20.1); HCO3 ABG 22.1 mmol/L (22-26); HGB O2 Sat 96.5 % (95-100); Ionized Calcium Level - ABG 1.2 mmol/L (1.1-1.4); Methemoglobin 0.4 % (0.4-1.5); Oxygen Device NRB; Oxygen Saturation ABG 98.4; Potassium Level - ABG 4.7 mmol/L (3.5-5.0); Total Hemoglobin 12.1 g/dL (14-18)
--- NOTE | 2023-07-03 17:23 | PC.NURSE ---
pt ripped iv out of right hand, tape and gauze applied.
[2023-07-03] MEDS: ipratropium-albuterol 3 mL Neb INHALATION (17:25)
[2023-07-03 17:32] LABS: Basophils # 0.1 10^3/uL (0.0-0.1); Basophils % 0.4 %; Eosinophils % 0.1 %; Hematocrit 39.7 % (42.0-52.0); Hemoglobin 11.8 g/dL (11.7-16.6); Lymphocytes # 1.2 10^3/uL (0.8-4.8); Lymphocytes % 8.9 %; Mean Corpuscular HGB Conc 29.7 g/dL (30.0-36.0); Mean Corpuscular Volume 80.7 fl (80-94); Mean Platelet Volume 10.2 fL (7.4-10.4); Monocytes # 0.7 10^3/uL (0.2-0.9); Monocytes % 5.1 %; Neutrophils # 11.55 10^3/uL (1.8-7.7); Neutrophils % 84.7 %; Nucleated Red Blood Cells % 0 %; Platelet Count 254 10^3/cmm (130-400); Red Blood Count 4.92 10^6/uL (4.1-5.3); Red Cell Distribution Width 17.8 % (12.1-15.1); White Blood Count 13.6 10^3/uL (4.0-10.0)
[2023-07-03 17:49] LABS: Alanine Aminotransferase 22 U/L (0-41); Albumin Level 3.8 g/dL (3.5-5.2); Alkaline Phosphatase 57 U/L (40-130); Aspartate Amino Transferase 17 U/L (0-40); Blood Urea Nitrogen 21 mg/dL (8-23); Carbon Dioxide 20 mmol/L (22-29); Chloride 98 mmol/L (98-107); Globulin 3.1 g/dL (1.3-4.6); Glucose 252 mg/dL (65-115); Osmolality Calculated 296 mOsm/kg (285-295); Sodium 137 mmol/L (136-145); Total Bilirubin 0.9 mg/dL (0.15-1.2); Total Protein 6.9 g/dL (6.6-8.7)
[2023-07-03 17:55] LABS: Anion Gap 23.6 (5-19); Potassium 4.6 mmol/L (3.5-5.1)
--- NOTE | 2023-07-03 17:55 | ECG_ITS ---
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 Measurements Intervals [place] Rate: 82 P: -5 FL: 172 QRS: 1 QRSD: 123 T: 187 QT: 427 QTc: 500 Interpretive Statements SINUS RHYTHM WITH OCCASIONAL VENTRICULAR PREMATURE COMPLEXES INFERIOR MYOCARDIAL INFARCTION , PROBABLY OLD [40+ ms Q WAVE AND/OR ST/T ABNORMALITY IN II/aVF] MODERATE T-WAVE ABNORMALITY, CONSIDER ANTEROLATERAL ISCHEMIA [-0.1+ mV T-WAVE IN V3-V6] Compared to ECG 07/03/2023 16:33:06 Ventricular premature complex(es) now present Myocardial infarct finding still present T-wave abnormality still present Possible ischemia still present Electronically Signed On 07-03-2023 17:58:39 CDT by Dominique Corona M.D. [email or web address]
--- NOTE | 2023-07-03 18:22 | CTR_ITS ---
PROCEDURE INFORMATION: Exam: CT Chest Without Contrast; Diagnostic Exam date and time: 07/03/2023 6:42 PM Age: 78 years old Clinical indication: Abdominal tenderness and bloating; Shortness of breath; Prior surgery; Surgery date: 6+ months; Surgery type: Appy stimulator; Additional info: SOB, abdominal distention TECHNIQUE: Imaging protocol: Diagnostic computed tomography of the chest without contrast. Radiation optimization: All CT scans at this facility use at least one of these dose optimization techniques: automated exposure control; mA and/or kV adjustment per patient size (includes targeted exams where dose is matched to clinical indication); or iterative reconstruction. REPORTING DATA: Count of CT and Cardiac NM exams in prior 12 months: This patient has received 5 known CTs and 0 known cardiac nuclear medicine studies in the 12 months prior to the current study. COMPARISON: CR (CHEST, ) 07/03/2023 5:05 PM RADIATION DOSE METRICS: Total DLP (mGy-cm): 1183.17 FINDINGS: Tubes, catheters and devices: Stimulator lead in the anterior spinal canal at T3-4 level. Lungs: Emphysema. Interstitial scarring in the peripheral lungs. Patchy ground-glass opacities in the left upper lobe. Patchy consolidation and ground-glass opacities in the left lower lobe. Pleural spaces: Unremarkable. No pneumothorax. No pleural effusion. Heart: The heart size is normal. Coronary arteries: Coronary artery calcifications. Lymph nodes: Prominent mediastinal and hilar lymph nodes are most likely reactive. Vasculature: Unremarkable. No aortic aneurysm. Bones/joints: Degenerative changes of the spine. No acute fracture. Soft tissues: Unremarkable. PROCEDURE INFORMATION: Exam: CT Abdomen And Pelvis Without Contrast Exam date and time: 07/03/2023 6:42 PM Age: 78 years old Clinical indication: Abdominal tenderness and bloating; Shortness of breath; Prior surgery; Surgery date: 6+ months; Surgery type: Appy stimulator; Additional info: SOB, abdominal distention TECHNIQUE: Imaging protocol: Computed tomography of the abdomen and pelvis without contrast. Radiation optimization: All CT scans at this facility use at least one of these dose optimization techniques: automated exposure control; mA and/or kV adjustment per patient size (includes targeted exams where dose is matched to clinical indication); or iterative reconstruction. REPORTING DATA: Count of CT and Cardiac NM exams in prior 12 months: This patient has received 5 known CTs and 0 known cardiac nuclear medicine studies in the 12 months prior to the current study. COMPARISON: CT abdomen pelvis wo con [id number] 12/19/2022 11:48 AM RADIATION DOSE METRICS: Total DLP (mGy-cm): 1183.17 FINDINGS: Tubes, catheters and devices: Stimulator device in the left flank region with thoracic lead. Liver: Normal. No mass. Gallbladder and bile ducts: Cholecystectomy. The bile ducts are normal. Pancreas: Atrophic pancreatic tail. The remainder of the pancreas is unremarkable. Spleen: Calcified granulomas in the spleen. Adrenal glands: Normal. No mass. Kidneys and ureters: Multiple small bilateral renal calculi. No ureteral calculus or hydronephrosis. Stomach and bowel: Diverticulosis of the colon. No diverticulitis. The stomach and small bowel are unremarkable. No wall thickening or obstruction. Appendix: The appendix is not visualized. No secondary signs of appendicitis. Intraperitoneal space: Unremarkable. No free air. No significant fluid collection. 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 No aneurysm. Lymph nodes: Unremarkable. No enlarged lymph nodes. Urinary bladder: Unremarkable as visualized. Reproductive: Small calcifications in the prostate. Bones/joints: Curvature and degenerative changes of the lumbar spine. Stable mild L1 compression fracture. No acute fracture. Soft tissues: Unremarkable. CT/[place] [id number] IMPRESSION: 1. Pneumonia in the left upper and lower lobes. 2. Emphysema with interstitial scarring. IMPRESSION: 1. No acute findings. 2. Small nonobstructing renal calculi. 3. Diverticulosis of the colon.
[2023-07-03 18:24] LABS: D Dimer 3.52 ug/mIFEU (0-0.59)
[2023-07-03 18:24] LABS: Troponin(5th) Baseline 67 ng/L (0-15)
--- NOTE | 2023-07-03 18:25 | PM.HP ---
Providers/Chief Complaint Admitting Physician: Terry Waterman MD Primary Care Provider: Dheeraj Rodgers MD Chief Complaint: ams History of Present Illness Agus Gillette is a 78 year old male past medical history of CAD, CVA, hypothyroidism, history of pulm embolism antioagulation was stopped, CHF, CKD, spinal cord stimulator, CHF EF of 23%, history of GI bleed, history of anemia, highly calcified mid RCA, history of nonischemic cardiomyopathy, who presents to [facility] due to nonresponsive episode. Currently patient is alert to person, not to place, not to time, he is in bed, on 5 L, family friend is at bedside, he does joke with him, but at times can recognize his family members, normal sinus rhythm heart rates in the 80s, normotensive, afebrile, he has no complaints currently, but is quite confused. Most of the history was obtained by nursing staff from [place], spoke to [facility] he told me that Agus has been doing well for the last few days, he did have a fall for which she came to the emergency room, this morning he woke up nothing on the ordinary had lunch, then he went to bed, someone potentially a roommate came and tried to wake him up around evening time for dinner but he did not awaken so nursing staff were alerted, upon evaluation, patient was nonresponsive, pulse was thready, in the 20s, no measurable blood pressure, patient had diminished respirations, they immediately called patient's daughter, and at that time they thought that he might pass away, her his daughter I spoke to her over the phone, in detail, she tells me that for the last few days he has not been acting appropriately, there was one instance she tells me a few days ago in which he became nonresponsive over the phone, it seems like he almost choked, and he had nursing staff check up on him, and he was sleeping, he did not remember the event at all, -Based upon the history, I was immediately concerned for either a cardiac arrest episode or a embolic episode from a pulmonary embolism, as his anticoagulation was stopped -I ordered a lactic acid came back at 4.2, evidence of septic shock or obstructive shock -His last blood pressure was 96/50, I have instructed nursing staff to start him on Levophed, stop fluid as it is associate with fluid overload given his EF of 23%, Place PICC line -Troponins elevated 67 -No start him on a heparin drip -CT chest abdomen pelvis was ordered as his abdomen is distended, no guarding, no rebound, rigidity, there is always some risk of an aspiration event, keep on aspiration precautions keep n.p.o. -Cardiac echo ordered -Venous ultrasound ordered -D-dimer was ordered and it was 3.52 -Patient felt was also found to be hypomagnesemia, he will be given magnesium, 1.2 -Pro-Jt is 1.13, CRP is 118.5, has evidence of septic shock, with elevated white count, chest x-ray evidence of left lower lobe pneumonia, I think this is likely an aspiration event -The question is that what led to this, it could be a cardiac arrest episode it could be an embolic phenomenon Reviewed his prior chart, back in his December admission there was discussion on potentially performing coronary angiography however it was declined for medical management, his EF at that point was 30%, he was supposed to be on Eliquis 5 mg twice daily, but he was discontinued sometime in December as per intermediate, -Creatinine is 1.9, acute renal failure, has evidence of fluid overload, crackles on exam stop fluids, Place Mackey catheter Review of Systems General: Reports: ROS unobtainable due to mental status Const: Denies: fever(s) or chills Medications/Allergies Home Medications Medication Instructions Recorded Confirmed Last Taken Type aspirin 81 mg tablet,delayed 81 mg PO DAILY #0 tabs 12/11/19 06/28/23 02/23/23 Rx release bisacodyl 10 mg rectal suppository 10 mg [place] DAILY PRN Constipation ##0 12/11/19 06/28/23 Unknown History magnesium hydroxide 400 mg/5 mL 30 ml PO DAILY PRN Constipation ##0 12/11/19 06/28/23 Unknown History oral suspension (Milk of Magnesia) sodium phosphates 19 gram-7 118 ml KY DAILY PRN Constipation 12/11/19 06/28/23 Unknown History gram/118 mL enema (Fleet Enema) ##0 acetaminophen 325 mg tablet 650 mg PO Q4H PRN Mild/Mod Pain Or 04/23/20 06/28/23 Unknown History Temp >/= 101 oxycodone-acetaminophen 5 mg-325 1 tab PO Q6H PRN pain 07/27/20 06/28/23 09/29/22 History mg tablet albuterol sulfate 2.5 mg/3 mL 2.5 mg inhalation Q4H PRN 09/26/22 06/28/23 Unknown History (0.083 %) solution for nebulization Shortness Of Breath budesonide-formoterol HFA 160 2 puff inhalation BID 09/26/22 06/28/23 02/23/23 History mcg-4.5 mcg/actuation aerosol inhaler (Symbicort) buspirone 5 mg tablet 10 mg PO TID 09/26/22 06/28/23 02/23/23 History colestipol 1 gram tablet 2 g PO DAILY 09/26/22 06/28/23 02/23/23 History levothyroxine 150 mcg tablet 150 mcg PO DAILY 09/26/22 06/28/23 02/23/23 History pantoprazole 40 mg tablet,delayed 40 mg PO DAILY 09/26/22 06/28/23 02/23/23 History release trazodone 100 mg tablet 150 mg PO BEDTIME 09/26/22 06/28/23 02/22/23 History metformin 1,000 mg tablet 1,000 mg PO BID 09/29/22 06/28/23 02/23/23 History duloxetine 60 mg capsule,delayed 60 mg PO BID 12/18/22 06/28/23 02/23/23 History release (Cymbalta) folic acid 1 mg tablet 1 mg PO DAILY 12/18/22 06/28/23 02/23/23 History hydroxyzine pamoate 25 mg capsule 25 mg PO Q8H PRN Anxiety 12/18/22 06/28/23 Unknown History (Vistaril) atorvastatin 20 mg tablet 20 mg PO BEDTIME 12/19/22 06/28/23 02/22/23 History cyanocobalamin (vitamin B-12) 1,000 mcg PO DAILY 12/19/22 06/28/23 02/23/23 History 1,000 mcg tablet (Vitamin B-12) ferrous gluconate 324 mg (37.5 mg 324 mg PO BIDWM #60 tabs 12/23/22 06/28/23 02/23/23 Rx iron) tablet furosemide 40 mg tablet (Lasix) 40 mg PO BID #90 tabs 12/23/22 06/28/23 02/23/23 Rx insulin detemir U-100 100 unit/mL 30 unit (0.3 mL) SUBCUT BEDTIME 12/23/22 06/28/23 02/22/23 Rx subcutaneous solution (Levemir #10 mL U-100 Insulin) metoprolol succinate 25 mg 50 mg PO DAILY #60 tabs 12/23/22 06/28/23 02/23/23 Rx tablet,extended release 24 hr memantine 5 mg tablet 10 mg PO QAM 01/10/23 06/28/23 02/23/23 History alprazolam 0.5 mg tablet (Xanax) 0.5 mg PO DAILY 02/23/23 06/28/23 02/22/23 History finasteride 5 mg tablet 5 mg PO DAILY 02/23/23 06/28/23 02/23/23 History gabapentin 300 mg capsule 300 mg PO TID 02/23/23 06/28/23 02/23/23 History quetiapine 100 mg tablet 100 mg PO DAILY 02/23/23 06/28/23 02/23/23 History quetiapine 50 mg tablet 50 mg PO DAILY 02/23/23 06/28/23 02/22/23 History tamsulosin 0.4 mg capsule 0.4 mg PO DAILY 02/23/23 06/28/23 02/23/23 History isosorbide mononitrate 30 mg 60 mg PO DAILY 03/24/23 06/28/23 Unknown History tablet,extended release 24 hr nitroglycerin 0.4 mg sublingual 0.4 mg sublingual Q5M PRN 05/22/23 06/28/23 Unknown History tablet albuterol sulfate 90 mcg/actuation 2 inh inhalation Q4H PRN shortness 06/14/23 06/28/23 Unknown Rx aerosol inhaler of breath or wheezing #8.5 grams Allergies Allergy/AdvReac Type Severity Reaction Status Date / Time hydrocodone Allergy Unknown Unknown Verified 06/26/23 04:24 Penicillins Allergy Unknown Unknown Verified 06/26/23 04:24 valsartan Allergy Unknown Unknown Verified 06/26/23 04:24 simvastatin Allergy Unknown Verified 06/26/23 04:24 PFSH Acute PFSH: Medical History Acute blood loss anemia KOKI (acute kidney injury) Chest pain Chronic kidney disease, stage II (mild) COPD (chronic obstructive pulmonary disease) Coronary artery disease CVA (cerebral vascular accident) Exertional shortness of breath GI bleed Hypertension Hypothyroidism Insomnia disorder Ischemic bowel disease Lower back pain Pulmonary embolism Small bowel obstruction Spinal cord stimulator status Systolic congestive heart failure Last echocardiogram 12/19/2022: LVEF 35-40%, mild aortic stenosis (mean gradient 7 mmHg, EVERT 1.2 cm?) LVEF decreased from 55% in 2019. 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: Resident of a intermediate Vitals/I&O/Wt Last Vital Signs Temp 97.6 F 07/03/23 16:32 Pulse 81 07/03/23 17:32 Resp 18 07/03/23 17:59 BP 117/74 07/03/23 16:32 Pulse Ox 93 07/03/23 17:59 O2 Del Method Nasal Cannula 07/03/23 17:32 O2 Flow Rate 5 07/03/23 17:32 Weight last 48 hrs Weight 100 kg Physical Exam Const: COMMON NORMALS: no acute distress GENERAL APPEARANCE: cooperative HENMT: COMMON NORMALS: normocephalic and Normal external nose present HEAD & SCALP: normocephalic FACE & SINUS: normal facial exam NOSE: Normal external nose present Eye: COMMON NORMALS: Equal, round and reactive pupils present, conjunctivae normal and no scleral icterus CONJUNCTIVA: Yes conjunctivae normal Neck/C-Spine: COMMON NORMALS: full ROM, no lymphadenopathy, no meningeal signs, no JVD and No carotid bruits THYROID: Thyroid normal Lymph: LYMPHATIC: no lymphadenopathy noted Chest: COMMONS NORMALS: normal inspection of the chest Resp: COMMON NORMALS: normal respiratory effort, No retractions and No use of accessory muscles OTHER: Bilateral crackles, left lower lung base, diminished breath sounds Cardio: COMMON NORMALS: no JVD, regular rate, regular rhythm, S1 normal heart sound present, S2 normal heart sound present, No murmurs present (Cardio) and Peripheral pulses 2+ throughout RATE: regular rate RHYTHM: regular rhythm HEART SOUNDS: S1 normal heart sound present and S2 normal heart sound present PERIPHERAL PULSES: Peripheral pulses 2+ throughout GI: OTHER: Abdomen is soft, distended, no guarding, no rebound, no rigidity, diminished bowel sounds : BLADDER/KIDNEY EXAM: Yes no CVA tenderness Back/Pelvis: COMMON NORMALS: no CVA tenderness Neuro: COMMON NORMALS: moves all extremities MENINGEAL SIGNS: Yes no meningeal signs Skin: COMMON NORMALS: no jaundice Sepsis: Is patient septic: Yes Focused sepsis exam performed: Yes Focused sepsis exam: Cap refill greater than 4 seconds, DP PT pulses diminished bilaterally, bilateral lower extremities pale, mild mottling up to the level of bilateral ankles, pale Data 07/03/23 17:14 07/03/23 17:14 A&P Assessment and plan (1) Acute encephalopathy: (2) Acute respiratory failure with hypoxia: (3) Lactic acidosis: (4) Acute renal failure: (5) Left lower lobe pneumonia: (6) Hypomagnesemia: (7) Goals of care, counseling/discussion: (8) Hypothyroidism: (9) Chronic kidney disease, stage II (mild): (10) CVA (cerebral vascular accident): (11) Pulmonary embolism: Qualifiers: Pulmonary embolism type: unspecified Chronicity: chronic Acute cor pulmonale presence: unspecified Qualified Code(s): I27.82 - Chronic pulmonary embolism (12) Type 2 diabetes mellitus: (13) Hypoxia: (14) Coronary artery disease: (15) Septic shock: Plan Unresponsive episode -Etiology unclear -Could be a cardiac arrest episode -Could be a emboli like phenomenon and obstructive from from pulmonary embolism -Could be an aspiration event -We will follow further imaging Acute encephalopathy -Likely second hypoxia, left lower lobe pneumonia -Neurochecks, aspiration precautions -Keep n.p.o. Acute hypoxic respiratory failure -Likely secondary to left lower lobe pneumonia -Concerns for possible aspiration event -Abdomen is distended, will await CAT scan, keep n.p.o. -With elevated D-dimer, elevated troponins, acute respiratory failure then, there was concern for possible embolic phenomenon from possible pulmonary embolism given history, and especially as he has a history of pulm embolism and is off anticoagulation Plan -Monitor respiratory status closely in the ICU -BiPAP as needed -Respiratory therapy eval -DuoNeb as needed -Broad-spectrum antibiotic therapy vancomycin, meropenem -Sputum cultures, blood cultures, MRSA nares PCR, respiratory viral panel -We will start on heparin drip -Cardiac echo, venous artery ultrasound -Follow CT of the chest -Cannot do CT angiogram of the chest given creatinine Septic shock, with lactic acid, also concerns for obstructive shock due to concerns as above -Blood pressures 90s over 50s currently -Concerns for fluid overload stop fluids -Place PICC line, start on Levophed NSTEMI -Serial EKGs, serial troponins, telemetry monitoring -Heparin drip Acute renal failure, creatinine 1.9, secondary to sepsis Hypomagnesemia, 1.2, will replace Metabolic acidosis, secondary to sepsis, lactic acidosis Has a history of bladder outlet obstruction, Place Mackey catheter we will get a UA Type 2 diabetes mellitus, low-dose sliding scale History of CHF, looks slightly fluid overloaded hold off of fluids hold off on Lasix History of GI bleeds, Protonix, Carafate Goals of care discussion, extensively discussed with the daughter, over the phone, patient is DNR, patient is DNI Status is stable, prognosis is guarded Attestations Medical Necessity Statement*: Patient requires hospitalization, inpatient, greater than 2 midnights, for acute hypoxic respiratory failure, left lower lobe pneumonia, concerning for either cardiac event or embolic event from pulmonary embolism, now developing hypotension, septic shock, sepsis, lactic acidosis, NSTEMI, acute renal failure, Coding Level of Care Code Critical Care >/= 30 minutes Critical care time (in minutes): 50 The high probability of a clinically significant, sudden or life threatening deterioration, as referenced in this documentation, required my full and direct attention, intervention and personal management. The critical care time shown is in addition to time spent performing any reported separately billable procedures and includes the following: [x] Data and vital sign review and interpretation [x] Patient assessment, examination and intervention [x] Medication orders and management [x] Patient/Family updates as able [x] Care Coordination and Documentation. Diagnoses Acute encephalopathy G93.40 Acute respiratory failure with hypoxia J96.01 Lactic acidosis E87.20 Acute renal failure N17.9 Left lower lobe pneumonia J18.9 Hypomagnesemia E83.42 Goals of care, counseling/discussion Z71.89 Hypothyroidism E03.9 Chronic kidney disease, stage II (mild) N18.2 CVA (cerebral vascular accident) I63.9 Pulmonary embolism I27.82 Pulmonary embolism type: unspecified Chronicity: chronic Acute cor pulmonale presence: unspecified Type 2 diabetes mellitus E11.9 Hypoxia R09.02 Coronary artery disease I25.10 Septic shock A41.9; R65.21
[2023-07-03 18:31] LABS: Lactic Sepsis W/Reflex 4.5 mmol/L (0.5-2.2)
[2023-07-03 18:33] LABS: NT Pro B Type Natriuretic Pept 8024 pg/mL (0-450); Procalcitonin 1.13 ng/mL (0-0.5)
[2023-07-03 18:44] LABS: C Reactive Protein 118.5 mg/L (0.0-4.9); Magnesium 1.2 mg/dL (1.7-2.3); Phosphorus 4.4 mg/dL (2.5-4.5)
--- NOTE | 2023-07-03 18:51 | CTR_ITS ---
PROCEDURE INFORMATION: Exam: CT Head Without Contrast Exam date and time: 07/03/2023 9:41 PM Age: 78 years old Clinical indication: Altered mental status/memory loss; Additional info: AMS TECHNIQUE: Imaging protocol: Computed tomography of the head without contrast. Radiation optimization: All CT scans at this facility use at least one of these dose optimization techniques: automated exposure control; mA and/or kV adjustment per patient size (includes targeted exams where dose is matched to clinical indication); or iterative reconstruction. REPORTING DATA: Count of CT and Cardiac NM exams in prior 12 months: This patient has received 5 known CTs and 0 known cardiac nuclear medicine studies in the 12 months prior to the current study. COMPARISON: CT head wo con* [id number] 12/19/2022 11:45 AM RADIATION DOSE METRICS: Total DLP (mGy-cm): 1121.04 FINDINGS: Brain: Mild diffuse cortical volume loss. Left parietal encephalomalacia. Moderate hypodensities in supratentorial periventricular and subcortical white matter, consistent with microangiopathy. No intracranial hemorrhage. Cerebral ventricles: No ventriculomegaly. Paranasal sinuses: Visualized sinuses are unremarkable. No fluid levels. Mastoid air cells: Visualized mastoid air cells are well aerated. Orbital cavities: Prior cataract surgery. Bones/joints: Unremarkable. No acute fracture. Soft tissues: Unremarkable. Vasculature: No hyperdense artery. CT/CT head wo con* [id number] IMPRESSION: 1. No acute intracranial abnormality.
--- NOTE | 2023-07-03 18:51 | USCV_ITS ---
GilletteAgus Age: 78 Gender: M : 1945 Exam Date: 07/03/2023 19:27 Ordering Phys: Terry Waterman MD Technologist: CT Exam Location: [facility] [place] Indication: sob BP: 94 / 50 HR: 83 Rhythm: Sinus Technical Quality: Adequate MEASUREMENTS (Male / Female) Normal Values 2D ECHO LV Diastolic Diameter PLAX 5.3 cm 4.2 - 5.9 / 3.9 - 5.3 cm LV Systolic Diameter PLAX 3.9 cm LV Chamber Size 6.3 cm IVS Diastolic Thickness 1.0 cm 0.6 - 1.0 / 0.6 - 0.9 cm IVS Systolic Thickness 1.7 cm LVPW Diastolic Thickness 1.4 cm 0.6 - 1.0 / 0.6 - 0.9 cm LVPW Systolic Thickness 1.8 cm RV Chamber Size 3.8 cm LVOT Diameter 2.0 cm LV Ejection Fraction 2D Teich 51.1 % LV Ejection Fraction MOD 2C 35.7 % LV Ejection Fraction 2C AL 36.0 % LA Diameter 4.8 cm LA Width 4.4 cm LA Height 5.2 cm RA Width 3.6 cm RA Height 4.5 cm Aorta at Sinotubular Diameter 2.4 cm M-MODE Aortic Annulus Diameter 3.2 cm LA Ao Ratio MM 1.5 MV E Point Septal Separation 1.2 cm DOPPLER AV Peak Velocity 158.0 cm/s LVOT Peak Velocity 93.0 cm/s AV Area Cont Eq vti 1.7 cm squared AV Area Cont Eq pk 1.9 cm squared MV Peak Velocity 95.0 cm/s MV Area PHT 2.1 cm squared Mitral E to A Ratio 0.7 MV E' Velocity 26.0 cm/s Mitral E to MV E' Ratio 8.7 Mitral E to LV E' Lateral Ratio 8.6 Mitral E to LV E' Septal Ratio 9.1 TR Peak Velocity 101.0 cm/s TR Peak Gradient 4.1 mmHg TV Peak E Velocity 78.0 cm/s Right Atrial Pressure 3.0 mmHg Pulmonary Artery Systolic Pressu 7.1 mmHg PV Peak Velocity 147.0 cm/s FINDINGS Left Ventricle Diffuse hypokinesia of the left ventricular with ejection fraction of around 40% (visual).Grade I/IV diastolic dysfunction (abnormal relaxation filling pattern), normal to mildly elevated filling pressures. Right Ventricle The right ventricle is normal in size and function. Right Atrium The right atrium is normal in size. Left Atrium Mildly increased left atrial size. Mitral Valve Thickened mitral valve. Aortic Valve Thickened aortic valve. Tricuspid Valve No gross abnormalities noted Pulmonic Valve Pulmonic valve not well visualized. The PA pressure could not be estimated properly because of the poor Doppler signal. Pericardium Normal pericardium without effusion. Aorta Normal ascending aorta dimension. IVC The inferior vena cava appears normal. CONCLUSIONS Diffuse hypokinesia of the left ventricular with ejection fraction of around 40% (visual).Grade I/IV diastolic dysfunction (abnormal relaxation filling pattern), normal to mildly elevated filling pressures. Mildly increased left atrial size. Thickened mitral valve. Thickened aortic valve. Pulmonic valve not well visualized. The PA pressure could not be estimated properly because of the poor Doppler signal. There are no intracardiac masses. There is no pericardial effusion. Compared to the study from 12/19/2022, there may not be a significant change Dr Carolina Fang MD [facility] (Electronically Signed) Final Date: 04 July 2023 08:51 S
--- NOTE | 2023-07-03 18:51 | USCV_ITS ---
Agus Gillette Age: 78 Gender: M : 1945 Exam Date: 07/03/2023 23:05 Ordering Phys: Terry Waterman MD Technologist: CT Exam Location: [facility] [place] Indication: PROCEDURES: Venous duplex imaging was performed in bilateral lower extremities. Bilaterally, the common femoral, superficial femoral, profunda femoral, popliteal, posterior tibial, greater saphenous veins, and the peroneal trunk were identified and interrogated in the standard fashion. These veins were found to be easily compressible with spontaneous blood flow. No evidence of insufficiency or thrombus noted. FINDINGS: normal us CONCLUSIONS No evidence of right lower extremity DVT. No evidence of left lower extremity DVT. Bill De La Rosa MD (Electronically Signed) Final Date: 04 July 2023 09:07 S
[2023-07-03 19:10] LABS: INR 1.06 (0.8-1.2)
[2023-07-03 19:49] LABS: Reflex Lactate Order REFLEX LACTIC ORDERD
[2023-07-03] MEDS: magnesium sulfate premix 4 GM/100 ML PREMIX IV (20:05)
[2023-07-03] MEDS: pantoprazole 40 mg SDV IVP (20:06)
[2023-07-03] MEDS: sucralfate 1 gm Tablet PO (20:07)
[2023-07-03 20:22] LABS: Chol HDL Ratio 2.83 mg/dL (1.0-5.00); Cholesterol 102 mg/dL (0-200); HDL Cholesterol 36 mg/dL (60-100); LDL Cholesterol Calculated 43 mg/dL (50-129); LDL HDL Ratio 1.19 RATIO (0.00-3.22); Thyroid Stimulating Hormone 1.06 uIU/mL (0.27-4.20); Triglycerides 113 mg/dL (0-150)
[2023-07-03] MEDS: vancomycin 1,500 MG/300 ML PIGGYBACK 200 MG IV (20:30)
[2023-07-03] MEDS: meropenem 1,000 MG in sodium chloride 0.9% (plus) 50 ML 100 MG IV (20:30)
--- NOTE | 2023-07-03 20:56 | XRR_ITS ---
PROCEDURE INFORMATION: Exam: XR Chest Exam date and time: 07/03/2023 9:08 PM Age: 78 years old Clinical indication: Device placement; Picc; Additional info: Confirm picc placement TECHNIQUE: Imaging protocol: Radiologic exam of the chest. Views: 1 view. COMPARISON: CT chest abdpel [id number] 07/03/2023 6:42 PM FINDINGS: Tubes, catheters and devices: Stimulator leads in the upper and lower thoracic spine. Left PICC line with tip in the distal SVC. Lungs: Airspace opacity in the central and lower left lung. Mild interstitial scarring in both lungs. Pleural spaces: Unremarkable. No pleural effusion. No pneumothorax. Heart/Mediastinum: Unremarkable. No cardiomegaly. Bones/joints: Unremarkable. XR/XR chest 1V portable [id number] IMPRESSION: Pneumonia in the left lung.
[2023-07-03] MEDS: heparin 5,000 unit/mL INJ 1 mL IV (20:57)
[2023-07-03 20:58] LABS: Troponin 5 2HR 60.51 ng/L (0-15)
[2023-07-03 21:01] LABS: Troponin 5 2HR Delta -6.49 ABS# (0-10)
[2023-07-03] MEDS: heparin drip 25,000 UNIT/500 ML PREMIX 26 UNIT IV (21:02)
[2023-07-03 21:31] LABS: Lactic Acid level (Lactate) 3.2 mmol/L (0.5-2.2)
--- NOTE | 2023-07-03 21:41 | PC.NURSE ---
Consulted by house charge for picc placement. Consent obtained by myself and the patient. All risk and benefits discussed. Risk included dvt and infection. LUE scanned with US and basilic vein was the best option. Vein was straight, 4 mm, and free of visible clot. Pt draped in usual sterile fashion. Using real time US lidocaine injected, vein accessed, and picc floated position. Chest xray obtained and waiting confirmation. NO bleeding no hematoma. EBL less then 5 ml. Blood drawn.. Pt arm circumfernce is 28 cm at 10 cm above the ac fossa.
[2023-07-03 21:43] LABS: Estmated Average Glucose 200; Hemoglobin A1C 8.6 % (4.0-6.0)
[2023-07-03 22:21] LABS: Adenovirus Not Detected (NOT DETECT); Chlamydia Pneumoniae Not Detected (NOT DETECT); Coronavirus 229E,HKU1,NL63,OC4 Not Detected (NOT DETECT); Human Metapneumovirus Not Detected (NOT DETECT); Human Rhinovirus/Enterovirus Not Detected (NOT DETECT); Influenza A Not Detected (NOT DETECT); Influenza A H1 Not Detected (NOT DETECT); Influenza A H1-2009 Not Detected (NOT DETECT); Influenza A H3 Not Detected (NOT DETECT); Influenza B Not Detected (NOT DETECT); Mycoplasma Pneumoniae Not Detected (NOT DETECT); Parainfluenza Virus Type 1 Not Detected (NOT DETECT); Parainfluenza Virus Type 2 Not Detected (NOT DETECT); Parainfluenza Virus Type 3 Not Detected (NOT DETECT); Parainfluenza Virus Type 4 Not Detected (NOT DETECT); Respiratory Syncytial Virus A Not Detected (NOT DETECT); Respiratory Syncytial Virus B Not Detected (NOT DETECT); SARS-COV-2 Not Detected (NOT DETECT)
[2023-07-03 22:24] LABS: Add Urine Microscopic? YES; Bilirubin Urine Neg (Negative); Blood Urine 2+ (Negative); Glucose Urine UA 4+ (Normal); Ketones Urine Negative (Negative); Leukocyte Esterase Urine Negative (Negative); Nitrate Urine Negative (Negative); Protein Urine Trace (Negative); Urine Appearance SL Hazy (CLEAR); Urine Color Light yellow (Yellow); Urobilinogen Urine Neg (Negative); pH Urine 5 (5-7)
[2023-07-03 22:25] LABS: Add Urine Culture? No; Bacteria Urine 1+ /hpf; Hyaline Casts Urine 0-4 /lpf; Mucus Urine 2+ /hpf; RBC Urine 0-4 /hpf (0-2)
[2023-07-03] MEDS: atorvastatin 40 mg Tablet 20 MG PO (22:36)
--- NOTE | 2023-07-03 22:57 | ECG_ITS ---
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 Measurements Intervals Wilbur Rate: 72 P: -19 IL: 140 QRS: 16 QRSD: 117 T: 189 QT: 425 QTc: 466 Interpretive Statements SINUS RHYTHM ST DEVIATION AND MODERATE T-WAVE ABNORMALITY, CONSIDER ANTEROLATERAL ISCHEMIA [-0.1+ mV T-WAVE IN V3-V6] Compared to ECG 07/03/2023 17:55:30 Ventricular premature complex(es) no longer present Myocardial infarct finding no longer present T-wave abnormality still present Possible ischemia still present Electronically Signed On 07-04-2023 6:50:04 CDT by Dominique Corona M.D. [id number]
[2023-07-04] VITALS (77 sets, daily range): BP systolic 100–178; BP diastolic 43–107; PULSE 70–94; RESP 11–31; TEMP 36.5–36.8; O2SAT 87–97
[2023-07-04 00:47] LABS: Troponin 5 6HR 58.08 ng/L (0-15)
[2023-07-04 05:00] LABS: Basophils % 0.3 %; Eosinophils # 0.1 10^3/uL (0.0-0.8); Eosinophils % 1.1 %; Hematocrit 35.5 % (42.0-52.0); Hemoglobin 10.8 g/dL (11.7-16.6); Lymphocytes # 2.4 10^3/uL (0.8-4.8); Lymphocytes % 22.6 %; Mean Corpuscular HGB Conc 30.4 g/dL (30.0-36.0); Mean Corpuscular Volume 78.9 fl (80-94); Mean Platelet Volume 10.6 fL (7.4-10.4); Monocytes # 0.8 10^3/uL (0.2-0.9); Monocytes % 7.5 %; Neutrophils % 67.9 %; Nucleated Red Blood Cells % 0 %; Platelet Count 208 10^3/cmm (130-400); Red Cell Distribution Width 17.7 % (12.1-15.1); White Blood Count 10.7 10^3/uL (4.0-10.0)
[2023-07-04] MEDS: pantoprazole 40 mg SDV IVP ×2 (06:10→17:57)
[2023-07-04] MEDS: sucralfate 1 gm Tablet PO ×2 (06:11→17:14)
[2023-07-04 06:34] LABS: NT Pro B Type Natriuretic Pept 2221 pg/mL (0-450); Procalcitonin 0.54 ng/mL (0-0.5)
[2023-07-04 06:45] LABS: Alanine Aminotransferase 20 U/L (0-41); Albumin Level 3.4 g/dL (3.5-5.2); Alkaline Phosphatase 52 U/L (40-130); Anion Gap 13.2 (5-19); Aspartate Amino Transferase 28 U/L (0-40); Blood Urea Nitrogen 23 mg/dL (8-23); C Reactive Protein 143.7 mg/L (0.0-4.9); Calcium 8.5 mg/dL (8.5-10.5); Carbon Dioxide 26 mmol/L (22-29); Chloride 104 mmol/L (98-107); Globulin 3.6 g/dL (1.3-4.6); Glucose 145 mg/dL (65-115); Magnesium 2.4 mg/dL (1.7-2.3); Osmolality Calculated 294 mOsm/kg (285-295); Phosphorus 3.8 mg/dL (2.5-4.5); Potassium 4.2 mmol/L (3.5-5.1); Sodium 139 mmol/L (136-145); Total Bilirubin 0.9 mg/dL (0.15-1.2)
[2023-07-04 06:52] LABS: D Dimer 2.63 ug/mIFEU (0-0.59); INR 1.05 (0.8-1.2)
[2023-07-04 06:56] LABS: Lactate (Lactic Acid level) 1.5 mmol/L (0.5-2.2)
[2023-07-04 07:08] LABS: Partial Thromboplastin Time 87.6 SECONDS (23.9-36.7)
[2023-07-04 07:13] LABS: Creatine Phosphokinase 771 U/L (39-308)
[2023-07-04] MEDS: meropenem 1,000 MG in sodium chloride 0.9% (plus) 50 ML 100 MG IV ×2 (07:37→21:18)
[2023-07-04 07:38] LABS: Glucose Point of Care 142 mg/dL (70-110)
[2023-07-04 08:23] LABS: Reflex Lactate Order REFLEX LACTIC ORDERD
[2023-07-04] MEDS: aspirin 81 mg EC Tablet PO (09:12)
[2023-07-04] MEDS: levothyroxine 150 mcg Tablet PO (09:12)
[2023-07-04] MEDS: insulin lispro 100 unit/1 mL SUBCUT ×3 (09:12→17:57)
[2023-07-04] MEDS: docusate sodium 100 mg Capsule PO ×2 (09:12→17:56)
[2023-07-04] MEDS: folic acid 1 mg Tablet PO (09:12)
[2023-07-04 10:00] LABS: Lactic Acid level (Lactate) 1.5 mmol/L (0.5-2.2)
[2023-07-04 12:35] LABS: Glucose Point of Care 280 mg/dL (70-110)
[2023-07-04] MEDS: enoxaparin 100 mg/mL Syringe 90 MG SUBCUT (12:37)
--- NOTE | 2023-07-04 14:48 | PC.NURSE ---
Patient has been alert to person, place, time, and situation throughout the day, but occasionally slow to answer. Within the last 30 minutes he has had trouble remembering his birthday, forgot what a wheelchair was called, and is slower to answer some questions. [facility] called Dariela to establish his baseline and they said that he is normally alert to person, place, time and situation. When describing the above assessments, Dariela informed us that in the past when he has gotten infections his mental status can vary throughout the day and he will have delayed speech too. Patient does not display any physical deficits. Nurse alerted Dr louise to mental status, was advised to continue to monitor.
--- NOTE | 2023-07-04 15:44 | PM.PN ---
Subjective Subjective: Patient was seen this morning, he is sitting up in a chair, alert to person, to place, not to time, he is not exactly sure what happened yesterday, he denies any lightheadedness, dizziness, no nausea, no vomiting, no abdominal pain Vitals/I&O/Wt Last Vital Signs Temp 98.2 F 07/04/23 12:30 Pulse 80 07/04/23 14:00 Resp 15 07/04/23 12:30 BP 140/64 07/04/23 12:45 Pulse Ox 93 07/04/23 12:45 O2 Del Method Nasal Cannula 07/04/23 12:30 O2 Flow Rate 4 07/04/23 12:30 07/04/23 07/04/23 07/04/23 06:59 14:59 22:59 Intake Total 279.067 / 279.067 Output Total 700 / 1100 355 / 355 Balance -700 / -650 -75.933 / -75.933 Weight last 48 hrs Weight 90.5 kg Weight 100 kg Physical Exam Const: COMMON NORMALS: no acute distress and patient oriented x3 Resp: COMMON NORMALS: normal respiratory effort, No retractions, No use of accessory muscles and clear to auscultation bilaterally AUSCULTATION: clear to auscultation bilaterally Cardio: COMMON NORMALS: regular rate, regular rhythm, S1 normal heart sound present and S2 normal heart sound present RATE: regular rate RHYTHM: regular rhythm HEART SOUNDS: S1 normal heart sound present and S2 normal heart sound present GI: COMMON NORMALS: Normal to inspection, nondistended, normoactive bowel sounds present and non-tender Extremity: COMMON NORMALS: no pedal edema Neuro: COMMON NORMALS: patient oriented x3 Psych: COMMON NORMALS: mental status grossly normal Urinary Catheter Management: Mackey Latex Free: Cath Placed During This Visit: yes Reason for Continuing Indwelling Catheter: Accurate Measurement of Urinary Output in Critically Ill Patients Urinary Catheter Date of Insertion: 07/03/23 Urinary Catheter Time of Insertion: 21:30 Data 07/04/23 04:04 07/04/23 05:55 A&P Assessment and plan (1) Acute encephalopathy: (2) Acute respiratory failure with hypoxia: (3) Lactic acidosis: (4) Acute renal failure: (5) Left lower lobe pneumonia: (6) Hypomagnesemia: (7) Goals of care, counseling/discussion: (8) Hypothyroidism: (9) Chronic kidney disease, stage II (mild): (10) CVA (cerebral vascular accident): (11) Pulmonary embolism: Qualifiers: Pulmonary embolism type: unspecified Chronicity: chronic Acute cor pulmonale presence: unspecified Qualified Code(s): I27.82 - Chronic pulmonary embolism (12) Type 2 diabetes mellitus: (13) Hypoxia: (14) Coronary artery disease: (15) Septic shock: Plan Unresponsive episode -Etiology unclear -Could be a cardiac arrest episode -Could be a emboli like phenomenon and obstructive from from pulmonary embolism -Could be an aspiration event -We will follow further imaging Acute encephalopathy resolving -Likely second hypoxia, left lower lobe pneumonia -Neurochecks, aspiration precautions -Advance diet as tolerated Acute hypoxic respiratory failure -Likely secondary to left lower lobe pneumonia -Concerns for possible aspiration event -Abdomen is distended, CT scan abdomen pelvis no acute findings -With elevated D-dimer, elevated troponins, acute respiratory failure then, there was concern for possible embolic phenomenon from possible pulmonary embolism given history, and especially as he has a history of pulm embolism and is off anticoagulation Plan -Monitor respiratory status closely in the ICU -BiPAP as needed -Respiratory therapy eval -DuoNeb as needed -Broad-spectrum antibiotic therapy vancomycin, meropenem -Sputum cultures, blood cultures, MRSA nares PCR, respiratory viral panel -lovenox therapeutic -Cardiac echo Diffuse hypokinesia of the left ventricular with ejection ?fraction of around 40% (visual).Grade I/IV diastolic dysfunction ?(abnormal relaxation filling pattern), normal to mildly elevated ?filling pressures. ?Mildly increased left atrial size. ?Thickened mitral valve. ?Thickened aortic valve. ?Pulmonic valve not well visualized.? The PA pressure could not ?be estimated properly because of the poor Doppler signal. ?There are no intracardiac masses. ?There is no pericardial effusion. ?Compared to the study from 12/19/2022, there may not be a ?significant change -venous dvt negative - CT of the chest has KAELA and LLL PNA -Cannot do CT angiogram of the chest given creatinine, concerns for possile pe he has been of eliquis, venous negative for dvt, Septic shock, with lactic acid, also concerns for obstructive shock due to concerns as above -Blood pressures 90s over 50s currently -Concerns for fluid overload stop fluids -Place PICC line NSTEMI -Serial EKGs, serial troponins, telemetry monitoring CONCLUSIONS ?Diffuse hypokinesia of the left ventricular with ejection ?fraction of around 40% (visual).Grade I/IV diastolic dysfunction ?(abnormal relaxation filling pattern), normal to mildly elevated ?filling pressures. ?Mildly increased left atrial size. ?Thickened mitral valve. ?Thickened aortic valve. ?Pulmonic valve not well visualized.? The PA pressure could not ?be estimated properly because of the poor Doppler signal. ?There are no intracardiac masses. ?There is no pericardial effusion. ?Compared to the study from 12/19/2022, there may not be a ?significant change Acute renal failure, creatinine 1.4, secondary to sepsis Hypomagnesemia, 2.4, will replace Metabolic acidosis, secondary to sepsis, lactic acidosis Has a history of bladder outlet obstruction, Place Mackey catheter Type 2 diabetes mellitus, low-dose sliding scale History of CHF, looks slightly fluid overloaded hold off of fluids hold off on Lasix History of GI bleeds, Protonix, Carafate Goals of care discussion, extensively discussed with the daughter, over the phone, patient is DNR, patient is DNI Attestations Medical Necessity Statement*: patient requires hospitalization for unresponsive episode, LULL and LL PNA, nstemi, concerns for possible pe Diagnoses Acute encephalopathy G93.40 Acute respiratory failure with hypoxia J96.01 Lactic acidosis E87.20 Acute renal failure N17.9 Left lower lobe pneumonia J18.9 Hypomagnesemia E83.42 Goals of care, counseling/discussion Z71.89 Hypothyroidism E03.9 Chronic kidney disease, stage II (mild) N18.2 CVA (cerebral vascular accident) I63.9 Pulmonary embolism I27.82 Pulmonary embolism type: unspecified Chronicity: chronic Acute cor pulmonale presence: unspecified Type 2 diabetes mellitus E11.9 Hypoxia R09.02 Coronary artery disease I25.10 Septic shock A41.9; R65.21
--- NOTE | 2023-07-04 19:07 | PC.NURSE ---
Shift Summary: Uneventful shift. Patient rested in bed for most of the day, but was up to a chair for about 4 hours, 1 person assist to get to the chair. MOstly alert and oriented to person, place, time, and situation. THere was some cognitive delays and some forgetfullness later in the shift, the group home has told use that this has occurred before when he had an infection and his fmaily has told us he has mild dementia. Heparin drip discontinued and started on lovenox. 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
[2023-07-04] MEDS: vancomycin 1,500 MG/300 ML PIGGYBACK 200 MG IV (19:59)
[2023-07-04] MEDS: FUROsemide 40 mg Tablet PO (20:00)
[2023-07-04] MEDS: amlodipine 10 mg Tablet PO (20:00)
[2023-07-04] MEDS: gabapentin 300 mg Capsule PO (20:00)
[2023-07-04] MEDS: quetiapine 25 mg Tablet 50 MG PO (20:00)
[2023-07-04] MEDS: trazodone 150 mg Tablet PO (20:00)
[2023-07-04] MEDS: atorvastatin 40 mg Tablet 20 MG PO (20:00)
[2023-07-04 21:49] LABS: Glucose Point of Care 231 mg/dL (70-110)
[2023-07-05] VITALS (8 sets, daily range): BP systolic 100–150; BP diastolic 54–77; PULSE 79–93; RESP 14–19; TEMP 36.6–36.9; O2SAT 90–95
[2023-07-05] MEDS: enoxaparin 100 mg/mL Syringe 90 MG SUBCUT ×2 (01:24→12:21)
[2023-07-05] MEDS: pantoprazole 40 mg SDV IVP ×2 (05:45→18:21)
[2023-07-05] MEDS: memantine 5 mg tablet 10 MG PO (06:15)
[2023-07-05] MEDS: sucralfate 1 gm Tablet PO ×2 (06:15→18:03)
[2023-07-05 06:21] LABS: Basophils % 0.4 %; Eosinophils # 0.3 10^3/uL (0.0-0.8); Hematocrit 39.6 % (37-53); Lymphocytes # 1.6 10^3/uL (0.8-4.8); Lymphocytes % 15.4 %; Mean Corpuscular HGB Conc 30.1 g/dL (30-55); Mean Corpuscular Hemoglobin 24.2 pg (27-33); Mean Corpuscular Volume 80.5 fl (82-101); Mean Platelet Volume 9.4 fL (7.4-10.4); Monocytes # 0.7 10^3/uL (0.2-0.9); Monocytes % 6.5 %; Neutrophils # 7.58 10^3/uL (1.8-7.7); Neutrophils % 74.2 %; Nucleated Red Blood Cells % 0 %; Platelet Count 235 10^3/cmm (157-399); Red Blood Count 4.92 10^6/uL (3.85-5.65); Red Cell Distribution Width 17.4 % (12.1-15.1); White Blood Count 10.23 10^3/uL (3.29-11.43)
[2023-07-05 06:34] LABS: INR 1.04 (0.8-1.2)
[2023-07-05 06:42] LABS: Alanine Aminotransferase 21 U/L (0-41); Albumin Level 3.2 g/dL (3.5-5.2); Alkaline Phosphatase 55 U/L (40-130); Aspartate Amino Transferase 34 U/L (0-40); Blood Urea Nitrogen 15 mg/dL (8-23); C Reactive Protein 69.6 mg/L (0.0-4.9); Calcium 8.7 mg/dL (8.5-10.5); Carbon Dioxide 25 mmol/L (22-29); Chloride 105 mmol/L (98-107); Globulin 4.2 g/dL (1.3-4.6); Glucose 201 mg/dL (65-115); Osmolality Calculated 299 mOsm/kg (285-295); Sodium 141 mmol/L (136-145); Total Bilirubin 1.3 mg/dL (0.15-1.2); Total Protein 7.4 g/dL (6.6-8.7)
[2023-07-05 06:46] LABS: Anion Gap 15.3 (5-19); Potassium 4.3 mmol/L (3.5-5.1)
[2023-07-05 06:51] LABS: NT Pro B Type Natriuretic Pept 2706 pg/mL (0-450); Procalcitonin 0.31 ng/mL (0-0.5)
[2023-07-05 07:25] LABS: Glucose Point of Care 180 mg/dL (70-110)
[2023-07-05] MEDS: meropenem 1,000 MG in sodium chloride 0.9% (plus) 50 ML 100 MG IV ×3 (08:19→23:35)
[2023-07-05] MEDS: insulin lispro 100 unit/1 mL SUBCUT ×3 (08:21→18:03)
[2023-07-05] MEDS: ALPRAZolam 0.5 mg Tablet PO (10:00)
[2023-07-05] MEDS: amlodipine 10 mg Tablet PO (10:00)
[2023-07-05] MEDS: quetiapine 25 mg Tablet 50 MG PO ×2 (10:00→18:03)
[2023-07-05] MEDS: FUROsemide 40 mg Tablet PO (10:00)
[2023-07-05] MEDS: levothyroxine 150 mcg Tablet PO (10:00)
[2023-07-05] MEDS: gabapentin 300 mg Capsule PO ×3 (10:00→20:17)
[2023-07-05] MEDS: folic acid 1 mg Tablet PO (10:00)
[2023-07-05] MEDS: aspirin 81 mg EC Tablet PO (10:00)
[2023-07-05] MEDS: docusate sodium 100 mg Capsule PO ×2 (10:00→18:03)
[2023-07-05] MEDS: tamsulosin 0.4 mg Capsule PO (10:01)
--- NOTE | 2023-07-05 10:02 | CT_ITS ---
WS: [id number] CTA OF THE CHEST WITH PULMONARY EMBOLISM PROTOCOL TECHNIQUE: High-resolution contrast enhanced CTA of the chest with coronal and sagittal reformatted i mages with pulmonary embolism protocol. MIP images are also reviewed. CLINICAL INFORMATION: sob COMPARISON: None. DLP: 425.[address] scans at [facility] use at least one of these dose optimization techniques: automated e xposure control; mA and/or kV adjustment per patient size (includes targeted exams where dose is matc hed to clinical indication); or iterative reconstruction. FINDINGS: Proximal main pulmonary arteries are normal. Focal filling defects compatible with pulmonary embolus in the LEFT lower lobe segmental and subsegmental pulmonary arteries. Cardiomegaly. LEFT ventricular enlargement. Aortic calcification. Coronary calcification. No mediastinal or hilar lymphadenopathy. Moderate chronic emphysematous changes. Interstitial thickening throughout both lungs with slight sca ttered hazy groundglass opacities similar to the prior examinations. No focal consolidation or pleura l fluid. Cholecystectomy clips. Splenic artery calcification. Small esophageal hernia. Adrenal glands are norm al. Hypertrophic changes thoracic spine. Spinal stimulators. IMPRESSION: 1. Small filling defects in the LEFT lower lobe segmental and subsegmental pulmonary arteries compat ible with pulmonary embolus. 2. Cardiomegaly. Enlarged LEFT ventricle. 3. Interstitial thickening throughout both lungs with scattered hazy opacities similar to the prior examinations. No focal pneumonia. Notified Terry Waterman MD at 07/05/2023 11:31 AM.
[2023-07-05] MEDS: iohexol 350 mg/mL 500 mL Btl (per mL) IV (11:07)
[2023-07-05 11:32] LABS: Glucose Point of Care 201 mg/dL (70-110)
[2023-07-05] MEDS: vancomycin 1,500 MG/300 ML PIGGYBACK 200 MG IV (12:22)
[2023-07-05 13:06] LABS: SARS Covid-2 Antigen negative (Negative)
--- NOTE | 2023-07-05 15:54 | PC.OT ---
OT TREATMENT ATTEMPTED IN P.M. PATIENT IS SLEEPING SOUNDLY. SPEECH AND DRAMA TEACHER STATES THE PATIENT HAS SLEPT MOST OF THE DAY AND STATES HE IS TIRED.
[2023-07-05 16:40] LABS: Glucose Point of Care 285 mg/dL (70-110)
--- NOTE | 2023-07-05 16:58 | P.PN_ITS ---
Subjective Subjective: Patient was examined this morning, he is alert to person, to place, not to time, he follows commands, denies any chest pain, no palpitations, no shortness of breath, no abdominal pain, he continues to feel weak, currently on 3 L, I plan on diuresing him today, will give him Lasix, he is agreeable, we discussed doing a CT angiogram to figure out what caused his acute unresponsive episode, my андрей picion is for a pulmonary embolism, as his anticoagulation was continued back in December, potentially related to anemia, Patient was reexamined in the evening time, I went over the CT angiogram of his chest he indeed does have a pulmonary embolism in the left lower lobe, he is a bit confused this evening, family members at bedside tells me he is a bit more confused than his normal self, but after extensive discussion with patient, he becomes much more alert and awake, answering questions appropriately, possible owning, discussed monitoring him in the hospital continue IV antibiotics, stopping vancomycin, switching him over to oral Eliquis, he voiced understanding, family voiced understanding Vitals/I&O/Wt Last Vital Signs Temp 98.4 F 07/05/23 15:45 Pulse 93 07/05/23 15:45 Resp 19 H 07/05/23 15:45 BP 111/72 07/05/23 15:45 Pulse Ox 93 07/05/23 15:45 O2 Del Method Nasal Cannula 07/05/23 15:45 O2 Flow Rate 3 07/05/23 07:33 07/05/23 07/05/23 07/05/23 06:59 14:59 22:59 Intake Total 250 / 1729.067 50 / 50 Output Total 1975 / 5930 Balance -1725 / -4200.933 50 / 50 Weight last 48 hrs Weight 90.5 kg Physical Exam Const: COMMON NORMALS: no acute distress ORIENTATION/CONSCIOUSNESS: Yes awake, Yes oriented to person and Yes oriented to place; not oriented to time Resp: COMMON NORMALS: normal respiratory effort, No retractions, No use of accessory muscles and clear to auscultation bilaterally AUSCULTATION: clear to auscultation bilaterally Cardio: COMMON NORMALS: regular rate, regular rhythm, S1 normal heart sound present and S2 normal heart sound present RATE: regular rate RHYTHM: regular rhythm HEART SOUNDS: S1 normal heart sound present and S2 normal heart sound present GI: COMMON NORMALS: Normal to inspection, nondistended, normoactive bowel sounds present and non-tender Extremity: COMMON NORMALS: no pedal edema Neuro: SENSORIUM/ORIENTATION: Yes oriented to person, Yes oriented to place and No oriented to time Psych: COMMON NORMALS: mental status grossly normal Urinary Catheter Management: Mackey Latex Free: Cath Placed During This Visit: yes Reason for Continuing Indwelling Catheter: Accurate Measurement of Urinary Output in Critically Ill Patients Urinary Catheter Date of Insertion: 07/03/23 Urinary Catheter Time of Insertion: 21:30 Data 07/05/23 06:08 07/05/23 06:08 Micro: Microbiology 07/03/23 20:00 MRSA Culture - Final Nose A&P Assessment and plan (1) Acute encephalopathy: (2) Acute respiratory failure with hypoxia: (3) Lactic acidosis: (4) Acute renal failure: (5) Left lower lobe pneumonia: (6) Hypomagnesemia: (7) Goals of care, counseling/discussion: (8) Hypothyroidism: (9) Chronic kidney disease, stage II (mild): (10) CVA (cerebral vascular accident): (11) Pulmonary embolism: Qualifiers: Pulmonary embolism type: unspecified Chronicity: chronic Acute cor pulmonale presence: unspecified Qualified Code(s): I27.82 - Chronic pulmonary embolism (12) Type 2 diabetes mellitus: (13) Hypoxia: (14) Coronary artery disease: (15) Septic shock: (16) Septic shock: (17) Encephalopathy: (18) Fluid overload: Plan New left lower lobe pulmonary embolism IMPRESSION: 1.? Small filling defects in the LEFT lower lobe segmental and subsegmental pulmonary arteries compatible with pulmonary embolus -Stop therapeutic Lovenox switch to Eliquis 10 mg twice daily -Has a history of pulmonary embolism, anticoagulation was discontinued for possible bleeding? Monitor hemoglobin closely Unresponsive episode -Likely secondary to pulmonary embolism Acute encephalopathy resolving -Likely second hypoxia, left lower lobe pneumonia, pulmonary embolism -Neurochecks, aspiration precautions -Advance diet as tolerated Acute hypoxic respiratory failure -Likely secondary to left lower lobe pneumonia -Concerns for possible aspiration event -Abdomen is distended, CT scan abdomen pelvis no acute findings -With elevated D-dimer, elevated troponins, acute respiratory failure then, there was concern for possible embolic phenomenon from possible pulmonary embolism given history, and especially as he has a history of pulm embolism and is off anticoagulation Plan -Monitor on medical floors -BiPAP as needed -Respiratory therapy eval -DuoNeb as needed -Broad-spectrum antibiotic therapy continue meropenem, stop vancomycin -Sputum cultures, blood cultures, MRSA nares PCR negative, respiratory viral panel -lovenox therapeutic -Cardiac echo Diffuse hypokinesia of the left ventricular with ejection ?fraction of around 40% (visual).Grade I/IV diastolic dysfunction ?(abnormal relaxation filling pattern), normal to mildly elevated ?filling pressures. ?Mildly increased left atrial size. ?Thickened mitral valve. ?Thickened aortic valve. ?Pulmonic valve not well visualized.? The PA pressure could not ?be estimated properly because of the poor Doppler signal. ?There are no intracardiac masses. ?There is no pericardial effusion. ?Compared to the study from 12/19/2022, there may not be a ?significant change -venous dvt negative - CT of the chest has KAELA and LLL PNA Septic shock, with lactic acid, also concerns for obstructive shock due to concerns as above, resolved -Blood pressures 90s over 50s currently -Concerns for fluid overload stop fluids -Place PICC line NSTEMI -Serial EKGs, serial troponins, telemetry monitoring CONCLUSIONS ?Diffuse hypokinesia of the left ventricular with ejection ?fraction of around 40% (visual).Grade I/IV diastolic dysfunction ?(abnormal relaxation filling pattern), normal to mildly elevated ?filling pressures. ?Mildly increased left atrial size. ?Thickened mitral valve. ?Thickened aortic valve. ?Pulmonic valve not well visualized.? The PA pressure could not ?be estimated properly because of the poor Doppler signal. ?There are no intracardiac masses. ?There is no pericardial effusion. ?Compared to the study from 12/19/2022, there may not be a ?significant change -Likely secondary to pulm embolism Acute renal failure, resolved Hypomagnesemia, 2.4, monitor Metabolic acidosis, secondary to sepsis, lactic acidosis, resolved Has a history of bladder outlet obstruction, will remove Mackey catheter, monitor urine output Type 2 diabetes mellitus, low-dose sliding scale History of CHF, looks slightly fluid overloaded hold off of fluids hold off on Lasix History of GI bleeds, Protonix, Carafate Goals of care discussion, DNR/DNI Plan for today stop therapeutic Lovenox switch to Eliquis, CT angiogram of the chest ordered, showed pulmonary embolism, discussed with patient, family, stop vancomycin continue meropenem, diurese today -5200 Attestations Medical Necessity Statement*: Patient requires hospitalization for new pulmonary embolism, left lower lobe pneumonia, fluid overload requiring diuresis, -5200 Diagnoses Acute encephalopathy G93.40 Acute respiratory failure with hypoxia J96.01 Lactic acidosis E87.20 Acute renal failure N17.9 Left lower lobe pneumonia J18.9 Hypomagnesemia E83.42 Goals of care, counseling/discussion Z71.89 Hypothyroidism E03.9 Chronic kidney disease, stage II (mild) N18.2 CVA (cerebral vascular accident) I63.9 Pulmonary embolism I27.82 Pulmonary embolism type: unspecified Chronicity: chronic Acute cor pulmonale presence: unspecified Type 2 diabetes mellitus E11.9 Hypoxia R09.02 Coronary artery disease I25.10 Septic shock A41.9; R65.21 Encephalopathy G93.40 Fluid overload E87.70
[2023-07-05] MEDS: trazodone 150 mg Tablet PO (20:17)
[2023-07-05] MEDS: atorvastatin 40 mg Tablet 20 MG PO (20:17)
[2023-07-05 20:59] LABS: Glucose Point of Care 272 mg/dL (70-110)
[2023-07-05] MEDS: insulin glargine 100 units/1 mL 10 UNIT SUBCUT (21:25)
[2023-07-05] MEDS: apixaban 5 mg Tablet 10 MG PO (23:35)
[2023-07-06] VITALS: BP 138/79; PULSE 97; RESP 14; TEMP 37; O2SAT 94
[2023-07-06 04:00] VITALS: BP 122/64; PULSE 90; RESP 16; TEMP 36.8; O2SAT 88
[2023-07-06 05:14] LABS: Basophils # 0.1 10^3/uL (0.0-0.1); Basophils % 0.7 %; Eosinophils # 0.3 10^3/uL (0.0-0.8); Eosinophils % 4.1 %; Hematocrit 40.3 % (37-53); Lymphocytes # 1.9 10^3/uL (0.8-4.8); Lymphocytes % 23.7 %; Mean Corpuscular HGB Conc 30.3 g/dL (30-55); Mean Corpuscular Hemoglobin 24.6 pg (27-33); Mean Corpuscular Volume 81.3 fl (82-101); Mean Platelet Volume 10.3 fL (7.4-10.4); Monocytes # 0.6 10^3/uL (0.2-0.9); Monocytes % 7.9 %; Neutrophils # 5.13 10^3/uL (1.8-7.7); Neutrophils % 63.2 %; Nucleated Red Blood Cells % 0 %; Platelet Count 267 10^3/cmm (157-399); Red Blood Count 4.96 10^6/uL (3.85-5.65); Red Cell Distribution Width 17.6 % (12.1-15.1); White Blood Count 8.11 10^3/uL (3.29-11.43)
[2023-07-06] MEDS: memantine 5 mg tablet 10 MG PO (05:37)
[2023-07-06] MEDS: sucralfate 1 gm Tablet PO (05:37)
[2023-07-06] MEDS: pantoprazole 40 mg SDV IVP (07:01)
[2023-07-06 07:38] VITALS: BP 154/75; PULSE 94; RESP 17; TEMP 36.4; O2SAT 94
[2023-07-06 08:27] LABS: Alanine Aminotransferase 34 U/L (0-41); Albumin Level 3.3 g/dL (3.5-5.2); Alkaline Phosphatase 60 U/L (40-130); Anion Gap 16.8 (5-19); Aspartate Amino Transferase 33 U/L (0-40); Blood Urea Nitrogen 12 mg/dL (8-23); C Reactive Protein 35.1 mg/L (0.0-4.9); Calcium 8.5 mg/dL (8.5-10.5); Carbon Dioxide 25 mmol/L (22-29); Chloride 101 mmol/L (98-107); Globulin 3.6 g/dL (1.3-4.6); Glucose 286 mg/dL (65-115); Magnesium 1.8 mg/dL (1.7-2.3); NT Pro B Type Natriuretic Pept 696 pg/mL (0-450); Osmolality Calculated 298 mOsm/kg (285-295); Phosphorus 2.3 mg/dL (2.5-4.5); Potassium 3.8 mmol/L (3.5-5.1); Sodium 139 mmol/L (136-145); Total Bilirubin 1.1 mg/dL (0.15-1.2); Total Protein 6.9 g/dL (6.6-8.7)
--- NOTE | 2023-07-06 10:26 | PC.SOCIAL ---
Imm update Imm updated with patient at bedside. Copy of page 2 provided. Patient verbalized understanding. Copy in chart initialed, dated and timed.
[2023-07-06] MEDS: tamsulosin 0.4 mg Capsule PO (10:37)
[2023-07-06] MEDS: aspirin 81 mg EC Tablet PO (10:38)
[2023-07-06] MEDS: amlodipine 10 mg Tablet PO (10:38)
[2023-07-06] MEDS: docusate sodium 100 mg Capsule PO (10:38)
[2023-07-06] MEDS: levothyroxine 150 mcg Tablet PO (10:39)
[2023-07-06] MEDS: folic acid 1 mg Tablet PO (10:39)
[2023-07-06] MEDS: gabapentin 300 mg Capsule PO (10:39)
[2023-07-06] MEDS: FUROsemide 40 mg Tablet PO (10:39)
[2023-07-06] MEDS: meropenem 1,000 MG in sodium chloride 0.9% (plus) 50 ML 100 MG IV (10:41)
[2023-07-06 11:24] LABS: Glucose Point of Care 291 mg/dL (70-110)
--- NOTE | 2023-07-06 11:47 | PM.DCS ---
Discharge Providers Date of Admission: 07/03/23 17:49 Date of Discharge: July 06, 2023 Attending Provider at Admission: Terry Waterman MD Attending Provider at Discharge: Ayden Cochran MD Primary Care Provider: Dheeraj Rodgers MD Diagnoses at Discharge Discharge Diagnosis (1) Acute encephalopathy: Status: Acute (2) Acute respiratory failure with hypoxia: Status: Acute (3) Lactic acidosis: Status: Acute (4) Acute renal failure: Status: Acute (5) Left lower lobe pneumonia: Status: Acute (6) Hypomagnesemia: Status: Acute (7) Goals of care, counseling/discussion: Status: Acute (8) Hypothyroidism: Status: Acute (9) Chronic kidney disease, stage II (mild): Status: Acute (10) CVA (cerebral vascular accident): Status: Acute (11) Pulmonary embolism: Status: Acute Qualifiers: Acute cor pulmonale presence: unspecified Chronicity: chronic Pulmonary embolism type: unspecified Qualified Code(s): I27.82 - Chronic pulmonary embolism (12) Type 2 diabetes mellitus: Status: Acute (13) Hypoxia: Status: Acute (14) Coronary artery disease: Status: Acute (15) Septic shock: Status: Acute (16) Encephalopathy: Status: Acute (17) Fluid overload: Status: Acute Reason for Visit Reason for Visit: ams Brief History: History as per HPI: Agus Gillette is a 78 year old male past medical history of CAD, CVA, hypothyroidism, history of pulm embolism antioagulation was stopped, CHF, CKD, spinal cord stimulator, CHF EF of 23%, history of GI bleed, history of anemia, highly calcified mid RCA, history of nonischemic cardiomyopathy, who presents to [facility] due to nonresponsive episode.? Currently patient is alert to person, not to place, not to time, he is in bed, on 5 L, family friend is at bedside, he does joke with him, but at times can recognize his family members, normal sinus rhythm heart rates in the 80s, normotensive, afebrile, he has no complaints currently, but is quite confused.? Most of the history was obtained by nursing staff from [place], spoke to [facility] he told me that Agus has been doing well for the last few days, he did have a fall for which she came to the emergency room, this morning he woke up nothing on the ordinary had lunch, then he went to bed, someone potentially a roommate came and tried to wake him up around evening time for dinner but he did not awaken so nursing staff were alerted, upon evaluation, patient was nonresponsive, pulse was thready, in the 20s, no measurable blood pressure, patient had diminished respirations, they immediately called patient's daughter, and at that time they thought that he might pass away, her his daughter I spoke to her over the phone, in detail, she tells me that for the last few days he has not been acting appropriately, there was one instance she tells me a few days ago in which he became nonresponsive over the phone, it seems like he almost choked, and he had nursing staff check up on him, and he was sleeping, he did not remember the event at all, -Based upon the history, I was immediately concerned for either a cardiac arrest episode or a embolic episode from a pulmonary embolism, as his anticoagulation was stopped -I ordered a lactic acid came back at 4.2, evidence of septic shock or obstructive shock -His last blood pressure was 96/50, I have instructed nursing staff to start him on Levophed, stop fluid as it is associate with fluid overload given his EF of 23%, Place PICC line -Troponins elevated 67 -No start him on a heparin drip -CT chest abdomen pelvis was ordered as his abdomen is distended, no guarding, no rebound, rigidity, there is always some risk of an aspiration event, keep on aspiration precautions keep n.p.o. -Cardiac echo ordered -Venous ultrasound ordered -D-dimer was ordered and it was 3.52 -Patient felt was also found to be hypomagnesemia, he will be given magnesium, 1.2 -Pro-Jt is 1.13, CRP is 118.5, has evidence of septic shock, with elevated white count, chest x-ray evidence of left lower lobe pneumonia, I think this is likely an aspiration event -The question is that what led to this, it could be a cardiac arrest episode it could be an embolic phenomenon Reviewed his prior chart, back in his December admission there was discussion on potentially performing coronary angiography however it was declined for medical management, his EF at that point was 30%, he was supposed to be on Eliquis 5 mg twice daily, but he was discontinued sometime in December as per [facility], -Creatinine is 1.9, acute renal failure, has evidence of fluid overload, crackles on exam stop fluids, Place Mackey catheter Hospital Course Hospital Course Patient was admitted to the hospital further evaluation and management of acute instability with an unresponsive episode, acute hypoxic respiratory failure with possibility of non-ST elevation PR and septic shock. On admission he was also found to have metabolic abnormalities along with acute kidney injury. He was started on broad-spectrum antibiotics, nebulization treatment and heparin drip with concerns for non-ST elevation PR and a possible PE. Echocardiogram was done which showed an EF of 40% with grade 1 diastolic dysfunction without regional wall motion abnormality other than a diffuse hypokinesia of LV wall. Patient responded well to the treatment and his oxygen supplementation and mentation has been back to its baseline for last 48 hours. CTA chest was done which is consistent with a left lower lobe pulmonary embolism. During hospitalization his blood cultures and sputum culture remain negative. Anticoagulation was discussed in detail with patient and patient's family at bedside. Concerns regarding catastrophic bleeding because of recurrent falls versus worsening of PE or stroke were discussed in detail. Family and patient verbalized understanding and wants to go ahead and continue with anticoagulation for now. Patient has been discharged in medically stable condition at his baseline mentation, oxygen supplementation and physical capabilities on oral anticoagulation with Eliquis 10 mg twice daily for next 1 week followed by 5 mg twice daily. He is to take oral antibiotics including doxycycline and Levaquin for next 7 days. He is to follow-up with his primary care provider within the next 1 week. Physical Exam Const: COMMON NORMALS: no acute distress and patient oriented x3 GENERAL APPEARANCE: cooperative ORIENTATION/CONSCIOUSNESS: Yes awake, Yes oriented to person and Yes oriented to place; not oriented to time HENMT: COMMON NORMALS: normocephalic and Normal external nose present HEAD & SCALP: normocephalic FACE & SINUS: normal facial exam NOSE: Normal external nose present Eye: COMMON NORMALS: Equal, round and reactive pupils present, conjunctivae normal and no scleral icterus CONJUNCTIVA: Yes conjunctivae normal PUPIL: Yes Equal, round and reactive pupils present Neck/C-Spine: COMMON NORMALS: full ROM, no lymphadenopathy, no meningeal signs, no JVD, Thyroid normal and No carotid bruits THYROID: Thyroid normal Lymph: LYMPHATIC: no lymphadenopathy noted Chest: COMMONS NORMALS: normal inspection of the chest Resp: COMMON NORMALS: normal respiratory effort, No retractions, No use of accessory muscles and clear to auscultation bilaterally AUSCULTATION: clear to auscultation bilaterally OTHER: Bilateral crackles, left lower lung base, diminished breath sounds Cardio: COMMON NORMALS: no JVD, regular rate, regular rhythm, S1 normal heart sound present, S2 normal heart sound present, No murmurs present (Cardio) and Peripheral pulses 2+ throughout RATE: regular rate RHYTHM: regular rhythm HEART SOUNDS: S1 normal heart sound present and S2 normal heart sound present PERIPHERAL PULSES: Peripheral pulses 2+ throughout GI: COMMON NORMALS: Normal to inspection, nondistended, normoactive bowel sounds present and non-tender OTHER: Abdomen is soft, distended, no guarding, no rebound, no rigidity, diminished bowel sounds : COMMON NORMALS: Yes no CVA tenderness BLADDER/KIDNEY EXAM: Yes no CVA tenderness Back/Pelvis: COMMON NORMALS: no CVA tenderness Extremity: COMMON NORMALS: no pedal edema Neuro: COMMON NORMALS: patient oriented x3 and moves all extremities SENSORIUM/ORIENTATION: Yes oriented to person, Yes oriented to place and No oriented to time MENINGEAL SIGNS: Yes no meningeal signs Psych: COMMON NORMALS: mental status grossly normal Skin: COMMON NORMALS: no jaundice Urinary Catheter Management: Mackey Latex Free: Cath Placed During This Visit: yes Reason for Continuing Indwelling Catheter: Other Urinary Catheter Date of Insertion: 07/03/23 Urinary Catheter Time of Insertion: 21:30 Discharge Data Studies Completed and Pending Completed Studies During Hospitalization Category Date Time Status CT angio chest PE protcl [id number] Routine Cat Scan 07/05/23 10:[address] chest abdomen pelvis [[place] [id number] Cat Scan 07/03/23 18:22 Completed ] Stat CT head wo con* [id number] Routine Cat Scan 07/03/23 18:51 Completed XR chest 1V portable [id number] Stat Exams 07/03/23 16:27 Completed XR chest 1V portable [id number] Stat Exams 07/03/23 20:56 [place] [id number] Routine Ultrasound 07/03/23 18:51 Completed CV. echo complete* [id number] Routine Ultrasound 07/03/23 18:51 Completed Pending at discharge Category Date Time Status Sputum Culture and Gram Stain Stat Lab 07/03/23 17:04 Uncollected Radiology Impressions Chest/Abdomen/Pelvis CT 07/03/23 18:22 IMPRESSION: 1. Pneumonia in the left upper and lower lobes. 2. Emphysema with interstitial scarring. IMPRESSION: 1. No acute findings. 2. Small nonobstructing renal calculi. 3. Diverticulosis of the colon. Head CT 07/03/23 18:51 IMPRESSION: 1. No acute intracranial abnormality. Chest X-Ray 07/03/23 20:56 IMPRESSION: Pneumonia in the left lung. Echocardiogram: CONCLUSIONS ?Diffuse hypokinesia of the left ventricular with ejection ?fraction of around 40% (visual).Grade I/IV diastolic dysfunction ?(abnormal relaxation filling pattern), normal to mildly elevated ?filling pressures. ?Mildly increased left atrial size. ?Thickened mitral valve. ?Thickened aortic valve. ?Pulmonic valve not well visualized.? The PA pressure could not ?be estimated properly because of the poor Doppler signal. ?There are no intracardiac masses. ?There is no pericardial effusion. ?Compared to the study from 12/19/2022, there may not be a ?significant change ?Dr Carolina Fang MD [facility] ?(Electronically Signed) ?Final Date:? ? ? 04 July 2023 ?08:51 Microbiology 07/03/23 20:00 Nose MRSA Culture - Final Laboratory Results WBC 8.11 10^3/uL (3.29-11.43) 07/06/23 04:50 RBC 4.96 10^6/uL (3.85-5.65) 07/06/23 04:50 Hgb 12.20 g/dL (11.27-16.99) 07/06/23 04:50 Hct 40.3 % (37-53) 07/06/23 04:50 MCV 81.3 fl (82-101) L 07/06/23 04:50 MCH 24.6 pg (27-33) L 07/06/23 04:50 MCHC 30.3 g/dL (30-55) 07/06/23 04:50 RDW 17.6 % (12.1-15.1) H 07/06/23 04:50 Plt Count 267 10^3/cmm (157-399) 07/06/23 04:50 MPV 10.3 fL (7.4-10.4) 07/06/23 04:50 Neut % (Auto) 63.2 % 07/06/23 04:50 Lymph % (Auto) 23.7 % 07/06/23 04:50 [place] % (Auto) 7.9 % 07/06/23 04:50 Eos % (Auto) 4.1 % 07/06/23 04:50 Baso % (Auto) 0.7 % 07/06/23 04:50 Neut # (Auto) 5.13 10^3/uL (1.8-7.7) 07/06/23 04:50 Lymph # (Auto) 1.9 10^3/uL (0.8-4.8) 07/06/23 04:50 [place] # (Auto) 0.6 10^3/uL (0.2-0.9) 07/06/23 04:50 Eos # (Auto) 0.3 10^3/uL (0.0-0.8) 07/06/23 04:50 Baso # (Auto) 0.1 10^3/uL (0.0-0.1) 07/06/23 04:50 Nucleated RBC % (auto) 0 % 07/06/23 04:50 Nucleated RBCs # 0.0 /100WBC 07/06/23 04:50 PT 13.90 SECONDS (12.1-14.9) 07/05/23 06:08 INR 1.04 (0.8-1.2) 07/05/23 06:08 APTT 87.6 SECONDS (23.9-36.7) H 07/04/23 05:55 D-Dimer 2.63 ug/mIFEU (0-0.59) H 07/04/23 05:55 Specimen Type Arterial 07/03/23 17:03 Sample Site Radial, left 07/03/23 17:03 ABG pH 7.34 (7.35-7.45) L 07/03/23 17:03 ABG pCO2 41.1 mmHg (35-45) 07/03/23 17:03 ABG pO2 104.0 mmHg (80.0-100.0) H 07/03/23 17:03 ABG HCO3 22.1 mmol/L (22-26) 07/03/23 17:03 ABG O2 Saturation 98.4 07/03/23 17:03 ABG Base Excess -3.5 mmol/L (-2.0-2.0) L 07/03/23 17:03 Fan Test Pos 07/03/23 17:03 A-a O2 Gradient Not Reportable 07/03/23 17:03 Hematocrit 37.2 % (42-52) L 07/03/23 17:03 Hgb O2 Saturation 96.5 % (95-100) 07/03/23 17:03 Carboxyhemoglobin 1.6 %THgb (0.4-20.1) 07/03/23 17:03 Methemoglobin 0.4 % (0.4-1.5) 07/03/23 17:03 Total Hemoglobin 12.1 g/dL (14-18) L 07/03/23 17:03 Sodium 139.0 mmol/L (131-143) 07/03/23 17:03 Potassium 4.7 mmol/L (3.5-5.0) 07/03/23 17:03 Glucose 272.0 mg/dL (70-115) H 07/03/23 17:03 Ionized Calcium 1.2 mmol/L (1.1-1.4) 07/03/23 17:03 O2 Delivery Device Nrb 07/03/23 17:03 O2 Liters/Min 12.0 % 07/03/23 17:03 Hat Trimmer ID [place] 07/03/23 17:03 Sodium 139 mmol/L (136-145) 07/06/23 07:45 Potassium 3.8 mmol/L (3.5-5.1) 07/06/23 07:45 Chloride 101 mmol/L (98-107) 07/06/23 07:45 Carbon Dioxide 25 mmol/L (22-29) 07/06/23 07:45 Anion Gap 16.8 (5-19) 07/06/23 07:45 BUN 12 mg/dL (8-23) 07/06/23 07:45 Creatinine 0.9 mg/dL (0.7-1.2) 07/06/23 07:45 GFR Calculation Not Reportable 07/06/23 07:45 Glucose 286 mg/dL (65-115) H 07/06/23 07:45 POC Glucose 291 mg/dL (70-110) H 07/06/23 10:51 Estimat Average Glucose 200 07/03/23 17:14 Hemoglobin A1c 8.6 % (4.0-6.0) H 07/03/23 17:14 Calculated Osmolality 298 mOsm/kg (285-295) H 07/06/23 07:45 Lactic Acid 4.5 mmol/L (0.5-2.2) H* 07/03/23 17:50 Lactic Acid (Sepsis) 1.5 mmol/L (0.5-2.2) 07/04/23 09:33 Lactate 1.5 mmol/L (0.5-2.2) 07/04/23 06:31 Calcium 8.5 mg/dL (8.5-10.5) 07/06/23 07:45 Phosphorus 2.3 mg/dL (2.5-4.5) L 07/06/23 07:45 Magnesium 1.8 mg/dL (1.7-2.3) 07/06/23 07:45 Total Bilirubin 1.1 mg/dL (0.15-1.2) 07/06/23 07:45 AST 33 U/L (0-40) 07/06/23 07:45 ALT 34 U/L (0-41) 07/06/23 07:45 Alkaline Phosphatase 60 U/L (40-130) 07/06/23 07:45 Creatine Kinase 771 U/L (39-308) H* 07/04/23 05:55 Troponin T Baseline 67 ng/L (0-15) H 07/03/23 17:50 Troponin T 120 Minute 60.51 ng/L (0-15) H 07/03/23 19:59 Delta Troponin T -6.49 ABS# (0-10) L 07/03/23 19:59 Troponin T Hi Sens 6Hr 58.08 ng/L (0-15) H 07/04/23 00:03 Troponin T Hi Sens 6Hr Delta -8.92 ng/L (0-12) L 07/04/23 00:03 C-Reactive Protein 35.1 mg/L (0.0-4.9) H 07/06/23 07:45 NT-Pro-B Natriuret Pep 696 pg/mL (0-450) H 07/06/23 07:45 Total Protein 6.9 g/dL (6.6-8.7) 07/06/23 07:45 Albumin 3.3 g/dL (3.5-5.2) L 07/06/23 07:45 Globulin 3.6 g/dL (1.3-4.6) 07/06/23 07:45 Triglycerides 113 mg/dL (0-150) 07/03/23 17:14 Cholesterol 102 mg/dL (0-200) 07/03/23 17:14 LDL Cholesterol, Calc 43 mg/dL (50-129) L 07/03/23 17:14 HDL Cholesterol 36 mg/dL (60-100) L 07/03/23 17:14 LDL/HDL Ratio 1.19 RATIO (0.00-3.22) 07/03/23 17:14 Cholesterol/HDL Ratio 2.83 mg/dL (1.0-5.00) 07/03/23 17:14 Procalcitonin 0.31 ng/mL (0-0.5) 07/05/23 06:08 TSH 1.06 uIU/mL (0.27-4.20) 07/03/23 17:14 Urine Color Light yellow (Yellow) 07/03/23 21:30 Urine Appearance Sl hazy (CLEAR) A 07/03/23 21:30 Urine pH 5 (5-7) 07/03/23 21:30 Ur Specific [place] 1.020 (1.005-1.030) 07/03/23 21:30 Urine Protein Trace (Negative) 07/03/23 21:30 Urine Glucose (UA) 4+ (Normal) H 07/03/23 21:30 Urine Ketones Negative (Negative) 07/03/23 21:30 Urine Blood 2+ (Negative) H 07/03/23 21:30 Urine Nitrate Negative (Negative) 07/03/23 21:30 Urine Bilirubin Neg (Negative) 07/03/23 21:30 Urine Urobilinogen Neg mg/dL (Negative) 07/03/23 21:30 Ur Leukocyte Esterase Negative (Negative) 07/03/23 21:30 Urine RBC 0-4 /hpf (0-2) H 07/03/23 21:30 Urine WBC None /hpf (0-5) 07/03/23 21:30 Ur Squamous Epith Cells None /hpf (0-5) 07/03/23 21:30 Amorphous Sediment Not Reportable 07/03/23 21:30 Urine Bacteria 1+ /hpf (NONE) H 07/03/23 21:30 Hyaline Casts 0-4 /lpf H 07/03/23 21:30 Urine Mucus 2+ /hpf 07/03/23 21:30 Nasal Influ A H1 2009 PCR Not detected (NOT DETECT) 07/03/23 20:00 Adenovirus (PCR) Not detected (NOT DETECT) 07/03/23 20:00 C. pneumoniae DNA (PCR) Not detected (NOT DETECT) 07/03/23 20:00 Coronavirus 229E (PCR) Not detected (NOT DETECT) 07/03/23 20:00 Human Metapneumovir PCR Not detected (NOT DETECT) 07/03/23 20:00 Influenza A (H1) PCR Not detected (NOT DETECT) 07/03/23 20:00 Influenza A (H3) PCR Not detected (NOT DETECT) 07/03/23 20:00 Influenza Type A (PCR) Not detected (NOT DETECT) 07/03/23 20:00 Influenza Type B (PCR) Not detected (NOT DETECT) 07/03/23 20:00 M. pneumoniae (PCR) Not detected (NOT DETECT) 07/03/23 20:00 Parainfluenza 1 (PCR) Not detected (NOT DETECT) 07/03/23 20:00 Parainfluenza 2 (PCR) Not detected (NOT DETECT) 07/03/23 20:00 Parainfluenza 3 (PCR) Not detected (NOT DETECT) 07/03/23 20:00 Parainfluenza 4 (PCR) Not detected (NOT DETECT) 07/03/23 20:00 RSV Type A (PCR) Not detected (NOT DETECT) 07/03/23 20:00 RSV Type B (PCR) Not detected (NOT DETECT) 07/03/23 20:00 Entero/Rhino (PCR) Not detected (NOT DETECT) 07/03/23 20:00 SARS-CoV-2 (PCR) Not detected (NOT DETECT) 07/03/23 20:00 SARS-CoV-2 Ag (Rapid) negative (Negative) 07/05/23 12:40 Vitals Last Vital Signs Temp 97.5 F L 08/24/23 07:38 Pulse 94 07/06/23 07:38 Resp 17 07/06/23 07:38 BP 154/75 07/06/23 07:38 Pulse Ox 94 07/06/23 07:38 O2 Del Method Nasal Cannula 07/06/23 07:38 O2 Flow Rate 3 07/05/23 20:00 Discharge Plan Discharge Patient Disposition: Xfer SNF Condition: Stable Prescriptions: New Eliquis 5 mg Tablet 5 mg PO Q12H Qty: 60 0RF Rx Instructions: 10 bid for 1 week, then 5 mg bid levofloxacin 750 mg tablet 750 mg PO Q24H 7 Days Qty: 7 0RF doxycycline hyclate 100 mg capsule 100 mg PO Q12H 7 Days Qty: 14 0RF Continued oxycodone-acetaminophen 5-325 mg tablet 1 tab PO Q6H PRN (Reason: pain) memantine 5 mg tablet 10 mg PO QAM nitroglycerin 0.4 mg tablet, sublingual 0.4 mg sublingual Q5M PRN (Reason: Chest Pain) Rx Instructions: do not exceed 3 doses per episode magnesium hydroxide [Milk of Magnesia] 400 mg/5 mL Suspension 30 ml PO DAILY PRN (Reason: Constipation) Qty: 0 bisacodyl 10 mg Suppository 10 mg LA DAILY PRN (Reason: Constipation) Qty: 0 Fleet Enema 19-7 gram/118 mL Enema 118 ml LA DAILY PRN (Reason: Constipation) Qty: 0 aspirin 81 mg Tablet,Delayed Release (Dr/Ec) 81 mg PO DAILY Qty: 0 0RF acetaminophen 325 mg tablet 650 mg PO Q4H PRN (Reason: Mild/Mod Pain Or Temp >/= 101) buspirone 5 mg Tablet 10 mg PO TID albuterol sulfate 2.5 mg /3 mL (0.083 %) Solution For Nebulization 2.5 mg INHALATION Q4H PRN (Reason: Shortness Of Breath) levothyroxine 150 mcg Tablet 150 mcg PO DAILY colestipol 1 gram Tablet 2 g PO DAILY budesonide-formoterol [Symbicort] 160-4.5 mcg/actuation Hfa Aerosol Inhaler 2 puff INHALATION BID pantoprazole 40 mg Tablet,Delayed Release (Dr/Ec) 40 mg PO DAILY metformin 1,000 mg Tablet 1,000 mg PO BID folic acid 1 mg Tablet 1 mg PO DAILY hydroxyzine pamoate [Vistaril] 25 mg Capsule 25 mg PO Q8H PRN (Reason: Anxiety) duloxetine [Cymbalta] 60 mg Capsule,Delayed Release(Dr/Ec) 60 mg PO BID atorvastatin 20 mg tablet 20 mg PO BEDTIME cyanocobalamin (vitamin B-12) [Vitamin B-12] 1,000 mcg Tablet 1,000 mcg PO DAILY ferrous gluconate 324 mg (37.5 mg iron) Tablet 324 mg PO BIDWM Qty: 60 0RF Levemir U-100 Insulin 100 unit/mL solution 30 unit SUBCUT BEDTIME Qty: 10 0RF metoprolol succinate 25 mg tablet extended release 24 hr 50 mg PO DAILY Qty: 60 0RF albuterol sulfate 90 mcg/actuation HFA aerosol inhaler 2 inh inhalation Q4H PRN (Reason: shortness of breath or wheezing) Qty: 8.5 0RF alprazolam [Xanax] 0.5 mg Tablet 0.5 mg PO DAILY tamsulosin 0.4 mg capsule 0.4 mg PO DAILY gabapentin 300 mg Capsule 300 mg PO TID finasteride 5 mg tablet 5 mg PO DAILY quetiapine 50 mg tablet 50 mg PO BID isosorbide mononitrate 30 mg tablet extended release 24 hr 60 mg PO DAILY furosemide 40 mg Tablet 40 mg PO DAILY ondansetron HCl 4 mg Tablet 4 mg PO Q4H PRN (Reason: Nausea) trazodone 150 mg Tablet 150 mg PO BEDTIME Discharge Orders: Discharge Order (Routine); Ordered 07/06/23 Ordered By: Ayden Cochran Referrals: Dheeraj Rodgers MD [Primary Care Provider] - Discharge Diet: Cardiac Discharge Activity: Resume usual activity and Increase activity as tolerated Patient Instructions: Doxycycline (By mouth), Levofloxacin (By mouth) (Levaquin, Levaquin Leva-jose carlos), Apixaban (By mouth), Opioid Safety Discharge Attestations Time Spent in Discharge Care*: greater than 30 min Specific Discharge Activities: educating patient, educating and/or supporting family/caregiver, discussing with pcp/other providers, discussing with case making machine operator/social workers/dc planners, documenting/other paperwork and evaluating patient/reviewing data Status at Discharge: Cognitive status at discharge: cognitively intact, Behavioral status at discharge: cooperative, Functional status at discharge: other assisted ambulation, Overall status at discharge: patient is progressing back to baseline Quality Metrics Clinical Quality Measures [ Venous Thromboembolism { Contraindication to Overlap Therapy: None; Overlap threrpy ordered; VTE Discharge Education: Education about anticoagulant therapy/Care Notes given; Deep Vein Thrombosis/Pulmonary Embolism Present on Admission: No; Contraindication to Pharm VTE Prophylaxis: None; Pharmacological prophylaxis given;}] Coding Level of Care Code 19877 Total time (in minutes) for Discharge: 60 Diagnoses Acute encephalopathy G93.40 Acute respiratory failure with hypoxia J96.01 Lactic acidosis E87.20 Acute renal failure N17.9 Left lower lobe pneumonia J18.9 Hypomagnesemia E83.42 Goals of care, counseling/discussion Z71.89 Hypothyroidism E03.9 Chronic kidney disease, stage II (mild) N18.2 CVA (cerebral vascular accident) I63.9 Pulmonary embolism I27.82 Acute cor pulmonale presence: unspecified Chronicity: chronic Pulmonary embolism type: unspecified Type 2 diabetes mellitus E11.9 Hypoxia R09.02 Coronary artery disease I25.10 Septic shock A41.9; R65.21 Encephalopathy G93.40 Fluid overload E87.70
[2023-07-06 11:54] VITALS: BP 175/87; PULSE 92; RESP 20; TEMP 36.5; O2SAT 94
[2023-07-06] MEDS: apixaban 5 mg Tablet 10 MG PO (12:28)
[2023-07-06] MEDS: insulin lispro 100 unit/1 mL SUBCUT (12:29)
[2023-07-06 14:37] VITALS: BP 175/87; PULSE 92; RESP 20; TEMP 36.5; O2SAT 94
== END 2023-07-06 13:15 | disposition skilled nursing facility (03) | DRG 871 ==
LOC: ER 17:45 → ICU 18:13 → MEDSURG 07-04 18:57
PROVIDERS: Admitting Provider Family Medicine; Emergency Provider Family Medicine; PCP Family Medicine; Visit Provider Student in an Organized Health Care Education/Training Program
DX: A41.9 Sepsis, unspecified organism (principal); G93.41 Metabolic encephalopathy; R65.21 Severe sepsis with septic shock; J69.0 Pneumonitis due to inhalation of food and vomit; I26.93 Single subsegmental thrombotic pulmonary embolism without acute cor pulmonale; J96.01 Acute respiratory failure with hypoxia; I21.4 Non-ST elevation (NSTEMI) myocardial infarction; I13.0 Hypertensive heart and chronic kidney disease with heart failure and stage 1 through stage 4 chronic kidney disease, or unspecified chronic kidney disease; I50.22 Chronic systolic (congestive) heart failure; I42.8 Other cardiomyopathies; N17.9 Acute kidney failure, unspecified; E87.20 Acidosis, unspecified; I25.10 Atherosclerotic heart disease of native coronary artery without angina pectoris; Z86.73 Personal history of transient ischemic attack (TIA), and cerebral infarction without residual deficits; E03.9 Hypothyroidism, unspecified; N18.2 Chronic kidney disease, stage 2 (mild); Z96.82 Presence of neurostimulator; D63.1 Anemia in chronic kidney disease; E83.42 Hypomagnesemia; J43.9 Emphysema, unspecified; Z79.891 Long term (current) use of opiate analgesic; Z79.82 Long term (current) use of aspirin; Z79.51 Long term (current) use of inhaled steroids; Z87.891 Personal history of nicotine dependence; N32.0 Bladder-neck obstruction; Z66 Do not resuscitate; I95.9 Hypotension, unspecified
CPT/HCPCS: 36415; 36416; 36573; 36592; 36600; 51702; 70450; 71045; 71250; 71275; 74176; 80051; 80053; 80061; 81001; 82330; 82550; 82805; 82962; 83036; 83605; 83735; 83880; 84100; 84145; 84443; 84484; 85025; 85378; 85610; 85730; 86140; 87426; 87486; 87581; 87633; 87641; 93005; 93306; 93970; 94640; 94664; 96365; 96372; 96376; 97161; 97166; 97530; 99285; C9113; J1644; J1650; J1815; J2185; J3370; J3475; Q9967

== ENCOUNTER 2023-07-14 07:11 | Outpatient (CLI) | payer MEDICARE, MEDICAID, SELFPAY ==
--- NOTE | 2023-07-14 | ECG_ITS ---
[facility] Test Date: 2023-07-14 Pat Name: Agus Gillette Department: Room: Gender: Male Mba Internship: Kristy Perrin : 1945 Requested By: Corine Russell Order Number: [id number] Sloane MD: Dominique Corona M.D. Interpretive Statements NAME OF STUDY: LEXISCAN SESTAMIBI STRESS TEST INDICATION: Chest Pain PROCEDURE: At the baseline, the blood pressure was 148/71 mmHg with a heart rate of 75 bpm. The electrocardiogram showed sinus rhythm with isolated PVCs. Normal axis with nonspecific ST-T wave changes in lateral leads. The Lexiscan was infused over a period of 20 seconds. A total of 0.4 milligrams of Lexiscan was infused. The stress phase was continued for a total of 5 minutes. Heart rate at the end of the stress phase was 78 beats per with a blood pressure 130/59 mm of Hg. The EKG at the peak infusion revealed sinus rhythm with no significant ST-T wave changes. Sestamibi was injected 20 seconds after the Lexiscan infusion. Blood pressure at the end of the recovery phase was 137/59 mm Hg with a heart rate of 78 beats per minute. CONCLUSION: 1. No significant EKG changes with the LexiScan infusion. 2. No LexiScan induced chest pain or cardiac arrhythmia. 3. Normal blood pressure and heart rate response. 4. Sestamibi/sestamibi perfusion scan pending; see separate report. Electronically Signed On 07-14-2023 14:16:19 CDT by Dominique Corona M.D. [email or web address]
[2023-07-14 08:01] VITALS: BMI 33.5
--- NOTE | 2023-07-14 08:02 | NMCV_ITS ---
NM luz perf SPECT r/s* [id number] Agus Gillette Age: 78 Gender: M : 1945 Exam Date: 07/14/2023 08:47 Ordering Phys: Corine Russell Technologist: GHAZAL Herman Exam Location: [facility] Indications: ATHEROSCLEROTIC HEART DISEASE STRESS TEST Please see separate stress test report in [facility] for full findings IMAGE PROTOCOL Rest/Stress 1 Lexiscan Day Radiopharmaceutical Dose (mCi) Administration Site Administered by Rest: Tc-99m 10.7 IV Timbo DiasGHAZAL Sestamibi Stress:Tc-99m 33.0 IV GHAZAL Herman Sestamibi Rest: 14-Jul-2023 60 Discovery 630 Stress: 14-Jul-2023 30 Discovery 630 0.4mg Lexiscan. Supine position only as patient was unable to lay prone. SPECT RESULTS Technical Quality: Excellent Raw Data Analysis: Normal Image Corrections: No attenuation or motion correction applied Summed Stress Score: 19 Summed Rest Score: 16 Summed Difference Score: 3 PERFUSION FINDINGS There is a large in size, mostly fixed perfusion defects noted in inferior and inferolateral gary. This is consistent with large sized prior infarct with minimal rigoberto-infarct ischemia in RCA and left circumflex artery territories. FUNCTIONAL RESULTS (calculated via Gated SPECT) Stress Image LV EF (%): 32 Stress EDV (mL):207 TID: 0.92 Stress ESV (mL):141 FUNCTIONAL FINDINGS: LV systolic function is severely reduced with EF of 32% IMPRESSIONS 1. Abnormal myocardial perfusion imaging with large sized area of prior infarct noted in left circumflex artery and RCA territories with minimal rigoberto- infarct ischemia. 2. LV systolic function severely reduced with EF of 32%. Miguel Coats MD (Electronically Signed) Final Date: 18 July 2023 17:37 S
[2023-07-14] MEDS: regadenoson 0.4 Mg/5 ml Syringe IVP (10:58)
[2023-07-14 11:05] VITALS: BP 137/59; PULSE 79
== END 2023-07-14 07:12 | disposition home or self-care (01) ==
LOC: CDL 07:13
PROVIDERS: PCP Family Medicine; Visit Provider Nurse Practitioner Family
DX: I25.10 Atherosclerotic heart disease of native coronary artery without angina pectoris (principal); I25.2 Old myocardial infarction; R07.9 Chest pain, unspecified
CPT/HCPCS: 36415; 78452; 93017; 96374; A9500; J2785

== ENCOUNTER → 2023-07-25 14:12 | Outpatient (BNVA) | payer MEDICARE, MEDICAID, SELFPAY | PROVIDERS: PCP Family Medicine; Visit Provider Internal Medicine Cardiovascular Disease | DX: R06.02 Shortness of breath (principal); I13.0 Hypertensive heart and chronic kidney disease with heart failure and stage 1 through stage 4 chronic kidney disease, or unspecified chronic kidney disease; I50.20 Unspecified systolic (congestive) heart failure; N18.2 Chronic kidney disease, stage 2 (mild); I27.82 Chronic pulmonary embolism; Z86.73 Personal history of transient ischemic attack (TIA), and cerebral infarction without residual deficits; Z87.891 Personal history of nicotine dependence; Z79.01 Long term (current) use of anticoagulants | CPT/HCPCS: 99214 ==

== ENCOUNTER → 2023-10-23 13:34 | Outpatient (BNVA) | payer MEDICARE, MEDICAID, SELFPAY | PROVIDERS: PCP Family Medicine; Visit Provider Internal Medicine Cardiovascular Disease | DX: G93.40 Encephalopathy, unspecified (principal); I25.10 Atherosclerotic heart disease of native coronary artery without angina pectoris; I13.0 Hypertensive heart and chronic kidney disease with heart failure and stage 1 through stage 4 chronic kidney disease, or unspecified chronic kidney disease; N18.2 Chronic kidney disease, stage 2 (mild); I50.20 Unspecified systolic (congestive) heart failure; N17.9 Acute kidney failure, unspecified; R09.02 Hypoxemia; J44.1 Chronic obstructive pulmonary disease with (acute) exacerbation; I27.82 Chronic pulmonary embolism; I25.2 Old myocardial infarction; Z87.891 Personal history of nicotine dependence; Z79.01 Long term (current) use of anticoagulants | CPT/HCPCS: 99214 ==

== ENCOUNTER → 2024-04-25 10:56 | Outpatient (BNVA) | payer MEDICARE, MEDICAID, SELFPAY | PROVIDERS: PCP Family Medicine; Visit Provider Dermatology | DX: L30.9 Dermatitis, unspecified (principal) | CPT/HCPCS: 11104; 11105; 99204 ==

== ENCOUNTER → 2024-05-07 10:37 | Outpatient (BNVA) | payer MEDICARE, MEDICAID, SELFPAY | PROVIDERS: PCP Family Medicine; Visit Provider Dermatology | DX: L12.0 Bullous pemphigoid (principal) | CPT/HCPCS: 99214 ==

== ENCOUNTER 2024-05-25 12:42 | Inpatient (IN) | payer MEDICARE, MEDICAID, SELFPAY ==
[2024-05-25] VITALS (28 sets, daily range): BP systolic 131–161; BP diastolic 77–120; PULSE 71–87; RESP 13–25; TEMP 36–37; O2SAT 90–100; BMI 31.1
--- NOTE | 2024-05-25 12:52 | CTR_ITS ---
PROCEDURE INFORMATION: Exam: CT Head Without Contrast Exam date and time: 05/25/2024 1:10 PM Age: 79 years old Clinical indication: Altered mental status/memory loss and malaise or fatigue; Confusion or disorientation; Additional info: AMS TECHNIQUE: Imaging protocol: Computed tomography of the head without contrast. Radiation optimization: All CT scans at this facility use at least one of these dose optimization techniques: automated exposure control; mA and/or kV adjustment per patient size (includes targeted exams where dose is matched to clinical indication); or iterative reconstruction. COMPARISON: CT head wo con* [id number] 07/03/2023 9:41 PM RADIATION DOSE METRICS: Total DLP (mGy-cm): 1043.38 FINDINGS: Brain: There is an unchanged area of encephalomalacia within the left parietal lobe suggestive of a chronic infarct. There is decreased attenuation again seen within the periventricular white matter suggestive of chronic microvascular ischemic changes. There is no evidence of acute intracranial hemorrhage or mass effect. Cerebral ventricles: No ventriculomegaly. Paranasal sinuses: Visualized sinuses are unremarkable. No fluid levels. Mastoid air cells: Visualized mastoid air cells are well aerated. Bones: Unremarkable. No acute fracture. Soft tissues: Unremarkable. CT/CT head wo con* [id number] IMPRESSION: 1. No acute intracranial abnormality 2. Chronic microvascular ischemic changes and chronic left parietal lobe infarct
--- NOTE | 2024-05-25 12:52 | ECG_ITS ---
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 Measurements Intervals [place] Rate: 84 P: 18 RI: 165 QRS: 24 QRSD: 118 T: 150 QT: 403 QTc: 477 Interpretive Statements SINUS RHYTHM MODERATE T-WAVE ABNORMALITY, CONSIDER LATERAL ISCHEMIA [-0.1+ mV T-WAVE IN I/aVL/V5/V6] Compared to ECG 07/03/2023 22:57:56 No significant changes Electronically Signed On 05-26-2024 16:04:19 CDT by Nicola Hedrick M.D. [id number] f
--- NOTE | 2024-05-25 12:59 | ED_ITS ---
HPI - SOB/Dyspnea 2 General: Chief Complaint: Shortness of Breath/Dyspnea Stated Complaint: AMS Time Seen by Provider: 05/25/24 12:48 Source: EMS Mode of arrival: EMS History of Present Illness: HPI Narrative: 79-year-old male with history of COPD an d is oxygen dependent was found unresponsive on the floor at the group home his sats were in the 70s. Patient was started back on his usual 3 L and he is improved. He is able to respond to some questions on arrival here group home is that he is usually awake and alert and answers questions appropriately. No evidence of significant trauma to his head he has no lateralizing symptoms at the time of presentation he does open his eyes looks both the left and the right will use left on right arm to difficulty get a full NIH score on him because he is very drowsy and lethargic he does grimace with painful stimuli in both the left and the right. He denies chest or abdominal pain although not sure how a bit of historian is at this time he dozes off frequently while we are asking him questions. Associated symptoms: Deny abdominal pain or chest pain Related Data: Home oxygen amount: 3 liters Review of Systems 2 General: Reports: Other (Questionable due to mental status) Card: Denies: chest pain Resp: Denies: dyspnea GI: Denies: abdominal pain PFSH ED 2 PFSH: Medical History Type 2 diabetes mellitus KOKI (acute kidney injury) Exertional shortness of breath Acute blood loss anemia Ischemic bowel disease Small bowel obstruction Insomnia disorder Chest pain Spinal cord stimulator status Chronic kidney disease, stage II (mild) Hypothyroidism Hypertension COPD (chronic obstructive pulmonary disease) Lower back pain GI bleed Systolic congestive heart failure Last echocardiogram 12/19/2022: LVEF 35-40%, mild aortic stenosis (mean gradient 7 mmHg, EVERT 1.2 cm?) LVEF decreased from 55% in 2020. CVA (cerebral vascular accident) Pulmonary embolism Coronary artery disease Surgical History H/O cardiac catheterization H/O shoulder surgery Hx of cholecystectomy History of right-sided carotid endarterectomy History of ankle surgery Family History Denies family history of Lung disease Hypertension Social History Smoking and tobacco/nicotine status: former use of tobacco/nicotine Alcohol intake: never Substance/Drug Use: never Household members: other Details: Resident of a group home Physical Exam 2 Const: GENERAL APPEARANCE: lethargic NUTRITIONAL APPEARANCE: obese O RIENTATION/CONSCIOUSNESS: Yes lethargic HENMT: COMMON NORMALS: normocephalic, atraumatic and hearing grossly normal bilaterally HEAD & SCALP: normocephalic and atraumatic Resp: COMMON NORMALS: normal respiratory effort, No retractions and No use of accessory muscles AUSCULTATION: rhonchi and wheezes Cardio: COMMON NORMALS: regular rate, regular rhythm and No murmurs present (Cardio) RATE: regular rate RHYTHM: regular rhythm GI: COMMON NORMALS: Soft to palpation and No hepatosplenomegaly present A USCULTATION: Yes normoactive bowel sounds PALPATION: Yes Soft to palpation, No Tenderness to palpation present (GI), No Guarding due to palpation present (GI) and Yes No hepatosplenomegaly present Extremity: COMMON NORMALS: normal to inspection, capillary refill normal, no clubbing, cyanosis or edema, no calf tenderness and no pedal edema Neuro: SENSORIUM/ORIENTATION: Yes lethargic OTHER: Could not appreciate any focal or lateralizing neurologic deficits. Very difficult to do an NIH score because of his lethargy Skin: COMMON NORMALS: no rashes or lesions noted GENERAL SKIN EXAM: no rashes or lesions noted Course 2 Vital Signs: Vital signs: Vital Signs Temperature 97.9 F 05/25/24 12:43 Pulse Rate 74 05/25/24 15:30 Respiratory Rate 20 H 05/25/24 15:30 Blood Pressure 151/102 05/25/24 15:30 Pulse Oximetry 96 05/25/24 15:30 Oxygen Delivery Me thod Nasal Cannula 05/25/24 12:43 Oxygen Flow Rate 3 05/25/24 12:43 MDM - SOB/Dyspnea Medical Decision Making CT of his head is negative CTA chest abdomen pelvis no PE does have some stenosis at the SMA and the aortoiliac bifurcation. First troponin is markedly elevated. CT of the chest did not show any pulmonary emboli. Patient was started on heparin and placed on to topical nitro concern for NSTEMI. He cannot really give us any feedback on this. There is no evidence of pneumonia on the CT either. Will admit for encephalopathy elevated troponin possible NSTEMI also anemia. Discussed with hospitalist orders written Medical Records I reviewed the patient's medical records. Lab Data I reviewed the patient's lab results. 05/25/24 13:01 05/25/24 13:01 Labs/Radiology: Radiology Impressions Head CT 05/25/24 12:52 IMPRESSION: 1. No acute intracranial abnormality 2. Chronic microvascular ischemic changes and chronic left parietal lobe infarct Chest/Abdomen/Pelvis CT 05/25/24 13:43 IMPRESSION: 1. No CT evidence of pulmonary embolus or pneumonia. 2. Emphysematous changes and scarring with decreased lung volumes. 3. Development of trace bilateral pleural effusions. 4. Ozrraxid-wb-ocopdz atherosclerotic coronary artery disease and suspected papillary muscle calcifications or less likely mitral valvular calcifications IMPRESSION: 1. No evidence of acute abdominal or pelvic inflammatory process. 2. 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 Laboratory Results WBC 9.40 10^3/uL (3.29-11.43) 05/25/24 13:01 RBC 4.90 10^6/uL (3.85-5.65) 05/25/24 13:01 Hgb 9.40 g/dL (11.27-16.99) L 05/25/24 13:01 Hct 34.5 % (37-53) L 05/25/24 13:01 MCV 70.4 fl (82-101) L 05/25/24 13:01 MCH 19.2 pg (27-33) L 05/25/24 13:01 MCHC 27.2 g/dL (30-55) L 05/25/24 13:01 RDW 18.5 % (12.1-15.1) H 05/25/24 13:01 Plt Count 291 10^3/cmm (157-399) 05/25/24 13:01 MPV 10.2 fL (7.4-10.4) 05/25/24 13:01 Neut % (Auto) 78.8 % 05/25/24 13:01 Lymph % (Auto) 13.7 % 05/25/24 13:01 Cottle % (Auto) 6.4 % 05/25/24 13:01 Eos % (Auto) 0.4 % 05/25/24 13:01 Baso % (Auto) 0.3 % 05/25/24 13:01 Neut # (Auto) 7.40 10^3/uL (1.8-7.7) 05/25/24 13:01 Lymph # (Auto) 1.3 10^3/uL (0.8-4.8) 05/25/24 13:01 Cottle # (Auto) 0.6 10^3/uL (0.2-0.9) 05/25/24 13:01 Eos # (Auto) 0.0 10^3/uL (0.0-0.8) 05/25/24 13:01 Baso # (Auto) 0.0 10^3/uL (0.0-0.1) 05/25/24 13:01 Nucleated RBC % (auto) 1.0 % 05/25/24 13:01 Nucleated RBCs # 0.1 /100WBC 05/25/24 13:01 Specimen Type Arterial 05/25/24 15:48 Sample Site Radial, left 05/25/24 15:48 ABG pH 7.42 (7.35-7.45) 05/25/24 15:48 ABG pCO2 35.8 mmHg (35-45) 05/25/24 15:48 ABG pO2 81.7 mmHg (80.0-100.0) 05/25/24 15:48 ABG PO2/FiO2 Ratio 255 05/25/24 15:48 ABG HCO3 22.9 mmol/L (22-26) 05/25/24 15:48 ABG Base Excess -1.4 mmol/L (-2.0-2.0) 05/25/24 15:48 Fan Test Pos 05/25/24 15:48 Hematocrit 28.5 % (42-52) L 05/25/24 15:48 O2 Delivery Device Nc 05/25/24 15:48 O2 Liters/Min 3.0 % 05/25/24 15:48 FiO2 32.0 % 05/25/24 15:48 Automotive Design Layout Drafter ID Cak 05/25/24 15:48 Sodium 145 mmol/L (136-145) 05/25/24 13:01 Potassium 4.1 mmol/L (3.5-5.1) 05/25/24 13:01 Chloride 104 mmol/L (98-107) 05/25/24 13:01 Carbon Dioxide 25 mmol/L (22-29) 05/25/24 13:01 Anion Gap 20.1 (5-19) H 05/25/24 13:01 BUN 25 mg/dL (8-23) H 05/25/24 13:01 Creatinine 1.3 mg/dL (0.7-1.2) H 05/25/24 13:01 GFR Calculation Not Reportable 05/25/24 13:01 Glucose 103 mg/dL (65-115) 05/25/24 13:01 Calculated Osmolality 305 mOsm/kg (285-295) H 05/25/24 13:01 Lactic Acid 2.6 mmol/L (0.5-2.2) H 05/25/24 13:01 Lactic Acid (Sepsis) 2.0 mmol/L (0.5-2.2) 05/25/24 15:43 Calcium 7.2 mg/dL (8.5-10.5) L 05/25/24 13:01 Total Bilirubin 1.5 mg/dL (0.15-1.2) H 05/25/24 13:01 AST 118 U/L (0-40) H 05/25/24 13:01 ALT 99 U/L (0-41) H 05/25/24 13:01 Alkaline Phosphatase 42 U/L (40-130) 05/25/24 13:01 Troponin T Baseline 516 ng/L (0-15) H* 05/25/24 13:01 Troponin T 120 Minute 381.8 ng/L (0-15) H 05/25/24 14:50 Delta Troponin T -134.2 ABS# (0-10) L 05/25/24 14:50 Total Protein 6.2 g/dL (6.6-8.7) L 05/25/24 13:01 Albumin 3.5 g/dL (3.5-5.2) 05/25/24 13:01 Globulin 2.7 g/dL (1.3-4.6) 05/25/24 13:01 Procalcitonin 0.09 ng/mL (0-0.5) 05/25/24 13:01 Urine Color Yellow (Yellow) 05/25/24 14:40 Urine Appearance Clear (CLEAR) 05/25/24 14:40 Urine pH 5 (5-7) 05/25/24 14:40 Ur Specific [place]on 1.020 (1.005-1.030) 05/25/24 14:40 Urine Protein 3+ (Negative) H 05/25/24 14:40 Urine Glucose (UA) Norm (Normal) 05/25/24 14:40 Urine Ketones 1+ (Negative) H 05/25/24 14:40 Urine Blood Neg (Negative) 05/25/24 14:40 Urine Nitrate Negative (Negative) 05/25/24 14:40 Urine Bilirubin 1+ (Negative) H 05/25/24 14:40 Urine Urobilinogen Norm mg/dL (Negative) 05/25/24 14:40 Ur Leukocyte Esterase Negative (Negative) 05/25/24 14:40 Urine RBC None /hpf (0-2) 05/25/24 14:40 Urine WBC Rare /hpf (0-5) 05/25/24 14:40 Ur Squamous Epith Cells None /hpf (0-5) 05/25/24 14:40 Amorphous Sediment Not Reportable 05/25/24 14:40 Urine Bacteria Trace /hpf (NONE) 05/25/24 14:40 All radiology interpretation(s) finalized by discharge Discharge Plan Discharge Patient Disposition: Admitted As Inpatient Admit Provider: Terry Waterman Clinical Impression: Encephalopathy, Elevated troponin I level, Acute on chronic kidney failure, Elevated liver function tests Condition: Stable Coding Level of Care Code ED Assistant Professor Of Business for Charity Jay
[2024-05-25 13:21] LABS: Basophils % 0.3 %; Eosinophils % 0.4 %; Hematocrit 34.5 % (37-53); Lymphocytes # 1.3 10^3/uL (0.8-4.8); Lymphocytes % 13.7 %; Mean Corpuscular HGB Conc 27.2 g/dL (30-55); Mean Corpuscular Hemoglobin 19.2 pg (27-33); Mean Corpuscular Volume 70.4 fl (82-101); Mean Platelet Volume 10.2 fL (7.4-10.4); Monocytes # 0.6 10^3/uL (0.2-0.9); Monocytes % 6.4 %; Neutrophils % 78.8 %; Nucleated Red Blood Cells # 0.1 /100WBC; Platelet Count 291 10^3/cmm (157-399); Red Cell Distribution Width 18.5 % (12.1-15.1)
[2024-05-25 13:38] LABS: Alanine Aminotransferase 99 U/L (0-41); Albumin Level 3.5 g/dL (3.5-5.2); Alkaline Phosphatase 42 U/L (40-130); Anion Gap 20.1 (5-19); Aspartate Amino Transferase 118 U/L (0-40); Blood Urea Nitrogen 25 mg/dL (8-23); Calcium 7.2 mg/dL (8.5-10.5); Carbon Dioxide 25 mmol/L (22-29); Chloride 104 mmol/L (98-107); Globulin 2.7 g/dL (1.3-4.6); Glucose 103 mg/dL (65-115); Osmolality Calculated 305 mOsm/kg (285-295); Potassium 4.1 mmol/L (3.5-5.1); Sodium 145 mmol/L (136-145); Total Bilirubin 1.5 mg/dL (0.15-1.2); Total Protein 6.2 g/dL (6.6-8.7)
[2024-05-25 13:39] LABS: Creatinine Clr Calc Pharmacy 53.0679; Lactic Sepsis W/Reflex 2.6 mmol/L (0.5-2.2)
[2024-05-25 13:41] LABS: Troponin(5th) Baseline 516 ng/L (0-15)
--- NOTE | 2024-05-25 13:43 | CTR_ITS ---
PROCEDURE INFORMATION: Exam: CTA Chest With Contrast Exam date and time: 05/25/2024 2:20 PM Age: 79 years old Clinical indication: Abdominal tenderness; Hyperventilation; Additional info: Elevated trop, hypoxia TECHNIQUE: Imaging protocol: Computed tomographic angiography of the chest with contrast. Exam focused on the arteries. 3D rendering (Not supervised by radiologist): MIP and/or 3D reconstructed images were created by the technologist. Radiation optimization: All CT scans at this facility use at least one of these dose optimization techniques: automated exposure control; mA and/or kV adjustment per patient size (includes targeted exams where dose is matched to clinical indication); or iterative reconstruction. Contrast material: OMNIPAQUE 350; Contrast volume: 100 ml; Contrast route: INTRAVENOUS (IV); COMPARISON: CT angio chest PE protcl [id number] 07/05/2023 10:58 AM RADIATION DOSE METRICS: Total DLP (mGy-cm): 1455.72 FINDINGS: Pulmonary arteries: Normal. No pulmonary emboli. Aorta: Unremarkable. No aortic aneurysm. No aortic dissection. Lungs: There are decreased lung volumes with unchanged diffuse emphysematous changes and scattered areas of ground-glass attenuation and interstitial opacities suspicious for scarring. No consolidating infiltrates are noted Pleural spaces: There are trace bilateral pleural effusions. Heart: The heart is mildly enlarged. There are calcifications within the central portion of the left ventricle which may reflect papillary muscle calcification or less likely mitral valvular calcifications. Coronary arteries: There are xuktsuyo-nm-frfnnu atherosclerotic vascular calcifications of the coronary arteries. Lymph nodes: There are scattered mediastinal lymph nodes which are unchanged and not pathologically enlarged by size criteria. There are scattered calcified granulomas bilaterally. Bones/joints: Unremarkable. No acute fracture. Soft tissues: See Heart finding. PROCEDURE INFORMATION: Exam: CT Abdomen And Pelvis With Contrast Exam date and time: 05/25/2024 2:20 PM Age: 79 years old Clinical indication: Abdominal tenderness; Hyperventilation; Additional info: Elevated trop, hypoxia TECHNIQUE: Imaging protocol: Computed tomography of the abdomen and pelvis with contrast. Radiation optimization: All CT scans at this facility use at least one of these dose optimization techniques: automated exposure control; mA and/or kV adjustment per patient size (includes targeted exams where dose is matched to clinical indication); or iterative reconstruction. Contrast material: OMNIPAQUE 350; Contrast volume: 100 ml; Contrast route: INTRAVENOUS (IV); COMPARISON: CT angio abdomen pelvis [id number] 04/23/2020 4:55 AM RADIATION DOSE METRICS: Total DLP (mGy-cm): 1455.72 FINDINGS: Liver: Normal. No mass. Gallbladder and biliary ducts: Postsurgical changes of cholecystectomy are seen. There is no significant biliary ductal dilatation. Pancreas: Normal. No ductal dilation. Spleen: There are calcified splenic granulomas. Adrenal glands: Normal. No mass. Kidneys and ureters: Normal. No hydronephrosis. Stomach and bowel: There are scattered colonic diverticula. There is no evidence of acute diverticulitis. There is no evidence of bowel obstruction. Appendix: No evidence of appendicitis. Intraperitoneal space: Unremarkable. No free air. No significant fluid collection. Vasculature: There are bdyjxivy-iu-hcvzuf atherosclerotic vascular calcifications with ltjdaiwk-th-mfzbwb stenosis of the origin of the superior mesenteric artery. There is no evidence of abdominal aortic aneurysm. There is euuwqows-sf-yvsnlz stenosis of the infrarenal abdominal aorta just proximal to the bifurcation and metzsget-pc-hkqcxy stenoses of the origins of the common iliac arteries bilaterally. Lymph nodes: Unremarkable. No enlarged lymph nodes. Urinary bladder: Unremarkable as visualized. Reproductive: Unremarkable as visualized. Bones/joints: There are moderate degenerative changes of the lumbar spine. No acute fracture. Soft tissues: Unremarkable. CT/CT angio chest w abd pel w con IMPRESSION: 1. No CT evidence of pulmonary embolus or pneumonia. 2. Emphysematous changes and scarring with decreased lung volumes. 3. Development of trace bilateral pleural effusions. 4. Ktxvhtag-ac-kwqbgg atherosclerotic coronary artery disease and suspected papillary muscle calcifications or less likely mitral valvular calcifications IMPRESSION: 1. No evidence of acute abdominal or pelvic inflammatory process. 2. 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
[2024-05-25] MEDS: nitroglycerin 1 gm/inch oint Pkt 0.5 INCH TOPICAL (13:57)
[2024-05-25] MEDS: heparin 5,000 unit/mL INJ 1 mL IV (14:02)
[2024-05-25] MEDS: aspirin 81 mg Chew Tablet 324 MG PO (14:04)
[2024-05-25] MEDS: iohexol 350 mg/mL 500 mL Btl (per mL) IV (14:25)
--- NOTE | 2024-05-25 15:03 | ECG_ITS ---
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 Measurements Intervals [place] Rate: 75 P: 166 ME: 168 QRS: 183 QRSD: 118 T: 27 QT: 436 QTc: 488 Interpretive Statements SINUS RHYTHM WITH FREQUENT PVCs. ARM LEADS REVERSED [INVERTED P AND QRS IN I] Compared to ECG 05/25/2024 12:52:00 Ventricular premature complex(es) now present t Electronically Signed On 05-26-2024 16:15:57 CDT by Nicola Hedrick M.D. [email or web address] rush healthQylur Security Systemsselect medical specialty hospital - columbus [id number]
[2024-05-25 15:05] LABS: Reflex Lactate Order REFLEX LACTIC ORDERD
[2024-05-25] MEDS: heparin drip 25,000 UNIT/500 ML PREMIX 27.31 UNIT IV (15:05)
[2024-05-25 15:23] LABS: Troponin 5 2HR 381.8 ng/L (0-15); Troponin 5 2HR Delta -134.2 ABS# (0-10)
[2024-05-25 15:31] LABS: Add Urine Microscopic? YES; Bilirubin Urine 1+ (Negative); Blood Urine Neg (Negative); Glucose Urine UA Norm (Normal); Ketones Urine 1+ (Negative); Leukocyte Esterase Urine Negative (Negative); Nitrate Urine Negative (Negative); Protein Urine 3+ (Negative); Urine Appearance Clear (CLEAR); Urine Color Yellow (Yellow); Urobilinogen Urine Norm (Negative); WBC Urine RARE /hpf (0-5); pH Urine 5 (5-7)
[2024-05-25 15:32] LABS: Add Urine Culture? No; Bacteria Urine TRACE /hpf
[2024-05-25 16:00] LABS: ABG PCO2 35.8 mmHg (35-45); ABG PH Result 7.42 (7.35-7.45); Arterial Blood Gas Hematocrit 28.5 % (42-52); Base Excess ABG -1.4 mmol/L (-2.0-2.0); Blood Gas Allen Test Pos; Blood Gas Operator Identificat CAK; Blood Gas Sample Site Radial, left; Blood Gas Sample Type Arterial; HCO3 ABG 22.9 mmol/L (22-26); Oxygen Device NC; PO2 ABG 81.7 mmHg (80.0-100.0); PO2 FiO2 Ratio Arterial Blood 255
--- NOTE | 2024-05-25 16:15 | USCV_ITS ---
Agus Gillette Age: 79 Gender: M : 1945 Exam Date: 05/25/2024 18:45 Ordering Phys: Terry Waterman MD Technologist: Delmer Park Exam Location: [facility] [place] Indication: nstemi BP: 157 / 120 HR: 74 Rhythm: Sinus Technical Quality: Adequate MEASUREMENTS (Male / Female) Normal Values 2D ECHO LV Diastolic Diameter PLAX 6.2 cm 4.2 - 5.9 / 3.9 - 5.3 cm IVS Diastolic Thickness 1.5 cm 0.6 - 1.0 / 0.6 - 0.9 cm IVS Systolic Thickness 1.9 cm LVPW Diastolic Thickness 1.6 cm 0.6 - 1.0 / 0.6 - 0.9 cm LVPW Systolic Thickness 2.0 cm LVOT Diameter 2.3 cm LV Ejection Fraction 2D Teich 36.9 % LV Ejection Fraction MOD 4C 34.0 % LV Ejection Fraction MOD 2C 37.9 % LV Ejection Fraction 2C AL 37.7 % LA Diameter 4.2 cm RA Systolic Volume 4C AL 51.6 ml RA Systolic Volume 4C MOD 51.2 ml LA Sys Volume AL 95.2 cm cubed LA Sys Volume Index AL 43.7 cm cubed/m squared Aorta at Sinotubular Diameter 2.3 cm IVC Diameter 2.5 cm M-MODE LA Ao Ratio MM 1.5 AV Cusp Separation MM 2.1 cm DOPPLER AV Peak Velocity 139.0 cm/s LVOT Peak Velocity 51.0 cm/s AV Area Cont Eq vti 2.0 cm squared AV Area Cont Eq pk 1.5 cm squared MV Peak Velocity 76.0 cm/s MV Area PHT 6.4 cm squared Mitral E to A Ratio 1.6 TV Peak Velocity 289.0 cm/s TR Peak Velocity 333.0 cm/s TR Peak Gradient 44.4 mmHg TR Mean Velocity 257.0 cm/s TR Mean Gradient 28.6 mmHg TR Velocity Time Integral 94.9 cm PV Peak Velocity 64.0 cm/s RV Ejection Time 0.3 s FINDINGS Left Ventricle Mild concentric LVH. Mildly dilated LV cavity. Moderately reduced LV systolic function with estimated LVEF of 35-40% severe hypokinesis of inferior and inferoseptal wall segments. Mild hypokinesis of anterolateral wall segments. Right Ventricle Normal right ventricular size and systolic function. Right Atrium Normal right atrial size. Left Atrium Dilated left atrium. Mitral Valve Thickened mitral valve. Mild mitral valve regurgitation. Aortic Valve Thickened aortic valve. No aortic stenosis.trace aortic valve regurgitation. Tricuspid Valve Structurally normal tricuspid valve. Trace tricuspid valve regurgitation. Pulmonary artery systolic pressure estimated at 35 to 40 mmHg. Pulmonic Valve Pulmonic valve not well visualized. Pericardium No pericardial effusion. Aorta Normal size aortic root and proximal ascending aorta. IVC Mildly dilated with decreased respiratory variation. CONCLUSIONS Moderately reduced LV systolic function. Estimated LVEF 35 to 40%. Severe hypokinesis of inferior wall and mild hypokinesis of anterolateral wall segments. Dilated left atrium with mild mitral regurgitation. Mildly elevated pulmonary artery systolic pressure at 35 to 40 mmHg Compared to last echo report on April 2023, no significant change. Nicola Hedrick MD (Electronically Signed) Final Date: 26 May 2024 14:31 S
--- NOTE | 2024-05-25 16:16 | PM.HP ---
Providers/Chief Complaint Primary Care Provider: Dheeraj Rodgers MD Chief Complaint: AMS History of Present Illness Agus Gillette is a 79 year old male with a past medical history of ischemic cardiomyopathy EF of 40%, history of chronically occluded RCA, history of COPD, CAD, history of pulmonary embolism on Eliquis therapy, history of carotid artery disease status post carotid artery endarterectomy, history of CVA, who presents [facility] due to unresponsive episode and shortness of breath. Currently patient is alert to person, not to place, not to time, he can follow commands he moves both upper and lower extremities, no facial droop no slurring of words, pupils equal round reactive to light, he is normotensive, blood pressure 151/102, pulse is 74, he is on 3 L, does not appear to be in respiratory distress, does have mild mottling of bilateral lower extremities, DP PT pulses are diminished, cap refill greater than 2 seconds, abdomen is distended, no evidence of respiratory distress, he is only complaint currently is shortness of breath. Patient does not know why he is in the hospital, his only complaint is shortness of breath he denies any chest pain, he is quite restless currently. According to residential, spoke to [facility], patient had a fall about 2 days ago, he has not had any complaints since then, normally he ambulates with a wheelchair, he can carry conversations, he can feed himself, to 7 degrees independent, he has had some complaints of intermittent shortness of breath. According to residential, patient had breakfast this morning, was alert oriented x 3, following all commands, his normal self, and suddenly he was followed by nursing staff unresponsive. He had a pulse, he was breathing on his own, but was not responsive, he appeared hypoxic to nursing staff so he was put on oxygen. Ambulance was called due to unresponsive episode, being lethargic. Currently here in the emergency room, his CT angiogram was negative for PE, chest x-ray no focal pneumonia UA no UTI, lactic acid is elevated, initial troponin was over 500, EKG showing T wave emergency in lateral leads, no acute ST-T wave changes, spoke to ER provider, given elevated troponins, he was placed on heparin drip, I spoke to cardiology, about the case, given the unresponsive episode, elevated troponins, history of ischemic cardiomyopathy, concerns for acute cardiac event, NSTEMI Review of Systems Card: Denies: chest pain Resp: Reports: dyspnea Medications/Allergies Home Medications Medication Instructions Recorded Confirmed Last Taken Type aspirin 81 mg tablet,delayed 81 mg PO DAILY #0 tabs 12/11/19 10/23/23 02/23/23 Rx release bisacodyl 10 mg rectal suppository 10 mg SC DAILY PRN Constipation ##0 12/11/19 10/23/23 Unknown History magnesium hydroxide 400 mg/5 mL 30 ml PO DAILY PRN Constipation ##0 12/11/19 10/23/23 Unknown History oral suspension (Milk of Magnesia) sodium phosphates 19 gram-7 118 ml SC DAILY PRN Constipation 12/11/19 10/23/23 Unknown History gram/118 mL enema (Fleet Enema) ##0 acetaminophen 325 mg tablet 650 mg PO Q4H PRN Mild/Mod Pain Or 04/23/20 10/23/23 Unknown History Temp >/= 101 oxycodone-acetaminophen 5 mg-325 1 tab PO Q6H PRN pain 07/27/20 10/23/23 09/29/22 History mg tablet albuterol sulfate 2.5 mg/3 mL 2.5 mg inhalation Q4H PRN 09/26/22 10/23/23 Unknown History (0.083 %) solution for nebulization Shortness Of Breath budesonide-formoterol HFA 160 2 puff inhalation BID 09/26/22 10/23/23 02/23/23 History mcg-4.5 mcg/actuation aerosol inhaler (Symbicort) buspirone 5 mg tablet 10 mg PO TID 09/26/22 10/23/23 02/23/23 History colestipol 1 gram tablet 2 g PO DAILY 09/26/22 10/23/23 02/23/23 History levothyroxine 150 mcg tablet 150 mcg PO DAILY 09/26/22 10/23/23 02/23/23 History pantoprazole 40 mg tablet,delayed 40 mg PO DAILY 09/26/22 10/23/23 02/23/23 History release metformin 1,000 mg tablet 1,000 mg PO BID 09/29/22 10/23/23 02/23/23 History duloxetine 60 mg capsule,delayed 60 mg PO BID 12/18/22 10/23/23 02/23/23 History release (Cymbalta) folic acid 1 mg tablet 1 mg PO DAILY 12/18/22 10/23/23 02/23/23 History hydroxyzine pamoate 25 mg capsule 25 mg PO Q8H PRN Anxiety 12/18/22 10/23/23 Unknown History (Vistaril) atorvastatin 20 mg tablet 20 mg PO BEDTIME 12/19/22 10/23/23 02/22/23 History cyanocobalamin (vitamin B-12) 1,000 mcg PO DAILY 12/19/22 10/23/23 02/23/23 History 1,000 mcg tablet (Vitamin B-12) ferrous gluconate 324 mg (37.5 mg 324 mg PO BIDWM #60 tabs 12/23/22 10/23/23 02/23/23 Rx iron) tablet insulin detemir U-100 100 unit/mL 30 unit (0.3 mL) SUBCUT BEDTIME 12/23/22 10/23/23 02/22/23 Rx subcutaneous solution (Levemir #10 mL U-100 Insulin) metoprolol succinate 25 mg 50 mg (2 x 25 mg) PO DAILY #60 tabs 12/23/22 10/23/23 02/23/23 Rx tablet,extended release 24 hr memantine 5 mg tablet 10 mg PO QAM 01/10/23 10/23/23 02/23/23 History alprazolam 0.5 mg tablet (Xanax) 0.5 mg PO DAILY 02/23/23 10/23/23 02/22/23 History finasteride 5 mg tablet 5 mg PO DAILY 02/23/23 10/23/23 02/23/23 History gabapentin 300 mg capsule 300 mg PO TID 02/23/23 10/23/23 02/23/23 History quetiapine 50 mg tablet 50 mg PO BID 02/23/23 10/23/23 02/22/23 History tamsulosin 0.4 mg capsule 0.4 mg PO DAILY 02/23/23 10/23/23 02/23/23 History isosorbide mononitrate 30 mg 60 mg PO DAILY 03/24/23 10/23/23 Unknown History tablet,extended release 24 hr nitroglycerin 0.4 mg sublingual 0.4 mg sublingual Q5M PRN Chest 05/22/23 10/23/23 Unknown History tablet Pain albuterol sulfate 90 mcg/actuation 2 inh inhalation Q4H PRN shortness 06/14/23 10/23/23 Unknown Rx aerosol inhaler of breath or wheezing #8.5 grams furosemide 40 mg tablet 40 mg PO DAILY 07/04/23 10/23/23 Unknown History ondansetron HCl 4 mg tablet 4 mg PO Q4H PRN Nausea 07/04/23 10/23/23 Unknown History trazodone 150 mg tablet 150 mg PO BEDTIME 07/04/23 10/23/23 Unknown History apixaban 5 mg tablet (Eliquis) 5 mg PO Q12H #60 tabs 07/25/23 10/23/23 Unknown Rx Allergies Allergy/AdvReac Type Severity Reaction Status Date / Time hydrocodone Allergy Unknown Unknown Verified 10/23/23 13:42 Penicillins Allergy Unknown Unknown Verified 10/23/23 13:42 valsartan Allergy Unknown Unknown Verified 10/23/23 13:42 simvastatin Allergy Unknown Verified 10/23/23 13:42 PFSH Acute PFSH: Medical History Type 2 diabetes mellitus KOKI (acute kidney injury) Exertional shortness of breath Acute blood loss anemia Ischemic bowel disease Small bowel obstruction Insomnia disorder Chest pain Spinal cord stimulator status Chronic kidney disease, stage II (mild) Hypothyroidism Hypertension COPD (chronic obstructive pulmonary disease) Lower back pain GI bleed Systolic congestive heart failure Last echocardiogram 12/19/2022: LVEF 35-40%, mild aortic stenosis (mean gradient 7 mmHg, EVERT 1.2 cm?) LVEF decreased from 55% in 2020. CVA (cerebral vascular accident) Pulmonary embolism Coronary artery disease Surgical History H/O cardiac catheterization H/O shoulder surgery Hx of cholecystectomy History of right-sided carotid endarterectomy History of ankle surgery Family History Denies family history of Lung disease Hypertension Social History Smoking and tobacco/nicotine status: former use of tobacco/nicotine Alcohol intake: never Substance/Drug Use: never Household members: other Details: Resident of a residential Vitals/I&O/Wt Last Vital Signs Temp 97.9 F 05/25/24 12:43 Pulse 74 05/25/24 15:30 Resp 20 H 05/25/24 15:30 BP 151/102 05/25/24 15:30 Pulse Ox 96 05/25/24 15:30 O2 Del Method Nasal Cannula 05/25/24 12:43 O2 Flow Rate 3 05/25/24 12:43 Weight last 48 hrs Weight 97.522 kg Physical Exam Const: COMMON NORMALS: no acute distress HENMT: COMMON NORMALS: normocephalic HEAD & SCALP: normocephalic Eye: COMMON NORMALS: Equal, round and reactive pupils present Neck/C-Spine: COMMON NORMALS: no JVD Lymph: LYMPHATIC: no lymphadenopathy noted Chest: COMMONS NORMALS: normal inspection of the chest Resp: COMMON NORMALS: normal respiratory effort, No retractions, No use of accessory muscles and clear to auscultation bilaterally AUSCULTATION: clear to auscultation bilaterally Cardio: COMMON NORMALS: regular rate, regular rhythm, S1 normal heart sound present and S2 normal heart sound present RATE: regular rate RHYTHM: regular rhythm HEART SOUNDS: S1 normal heart sound present and S2 normal heart sound present GI: COMMON NORMALS: Normal to inspection, nondistended, normoactive bowel sounds present, Soft to palpation and non-tender OTHER: Abdomen slightly distended, no abdominal pain on palpation of all 4 quadrants, no guarding, no rebound, no rigidity : COMMON NORMALS: Yes no CVA tenderness Extremity: COMMON NORMALS: no calf tenderness and no pedal edema Neuro: OTHER: Does not follow neurologic testing, is encephalopathic, moves bilateral upper and lower extremities, seems to have equal strength bilaterally, he is able to say a few words, I cannot discern any facial droop, no slurring of his words, Sepsis: Is patient septic: No Focused sepsis exam performed: Yes Focused sepsis exam: DP PT pulses diminished, cap refill greater than 2 seconds, mild mottling bilateral lower extremities Date exam was performed: 05/25/24 Time exam was performed: 15:00 Data 05/25/24 13:01 05/25/24 13:01 Micro: Microbiology 05/25/24 13:06 Blood Culture - Preliminary Blood SPECIMEN COLLECTED 05/25/24 13:01 Blood Culture - Preliminary Blood SPECIMEN COLLECTED A&P Assessment and plan (1) Acute encephalopathy: (2) Unresponsive episode: (3) NSTEMI (non-ST elevated myocardial infarction): (4) Coronary artery disease: (5) Acute renal failure superimposed on stage 2 chronic kidney disease: (6) Transaminitis: Plan Unresponsive episode -Etiology unclear -Potentially related to cardiac event?, NSTEMI -No evidence of UTI ? No evidence of focal pneumonia -He is hypertensive in the emergency room -Stroke? CT head within normal limits, no evidence of any acute bleed, no new strokes, I cannot discern any facial droop, no slurring of his words, he has spontaneous movement of upper lower extremities. -Neurochecks, n.p.o., NIH stroke scale Acute encephalopathy ? Etiology unclear NSTEMI -Stress test July 2023 ? IMPRESSIONS 1. Abnormal myocardial perfusion imaging with large sized area of prior infarct noted in left circumflex artery and RCA territories with minimal rigoberto- infarct ischemia. 2. LV systolic function severely reduced with EF of 32%. ? Plan ? No chest pain complaints ? Has complaints of shortness of breath ? Continue heparin drip ? Serial EKGs conservative once, telemetry monitoring ? Cardiac echo ? Has received aspirin ? Cardiology has been consulted History of pulmonary embolism ? On Eliquis at residential Switch to heparin drip History of CVA Type 2 diabetes mellitus, low-dose sliding scale History of CKD, creatinine 1.3 Acute on chronic anemia, history of GI bleeds -Hemoglobin 9.4 -Iron, ferritin, B12 Is Protonix, Carafate History of CHF, does not look fluid overloaded History of COPD Elevated lactic acid, possibly associate with NSTEMI, monitor Full code ? Heparin drip for DVT prophylaxis ? Per daughter GI prophylaxis Attestations Medical Necessity Statement*: Patient requires hospitalization, inpatient, greater than 2 midnights, for unresponsive episode, encephalopathy, NSTEMI Diagnoses Acute encephalopathy G93.40 Unresponsive episode R40.4 NSTEMI (non-ST elevated myocardial infarction) I21.4 Coronary artery disease I25.10 Acute renal failure superimposed on stage 2 chronic kidney disease N17.9; N18.2 Transaminitis R74.01
[2024-05-25 16:18] LABS: NT Pro B Type Natriuretic Pept 17093 pg/mL (0-450); Procalcitonin 0.09 ng/mL (0-0.5)
[2024-05-25 16:29] LABS: C Reactive Protein 31.7 mg/L (0.0-4.9)
[2024-05-25 16:33] LABS: INR 1.95 (0.8-1.2)
[2024-05-25 16:42] LABS: Magnesium 0.8 mg/dL (1.7-2.3)
[2024-05-25] MEDS: pantoprazole 40 mg SDV IVP (17:19)
[2024-05-25] MEDS: duloxetine 60 mg Capsule PO (17:19)
[2024-05-25] MEDS: quetiapine 25 mg Tablet 50 MG PO (17:20)
[2024-05-25] MEDS: sucralfate 1 gm/10 mL Oral Liq UDC PO (17:20)
[2024-05-25] MEDS: magnesium sulfate premix 4 GM/100 ML PREMIX IV (17:20)
[2024-05-25] MEDS: sodium chloride 0.9% 1,000 ML 100 ML IV (17:20)
[2024-05-25 17:47] LABS: Chol HDL Ratio 1.87 mg/dL (1.0-5.00); Cholesterol 58 mg/dL (0-200); Creatine Phosphokinase 62 U/L (39-308); Ferritin 24 ng/mL (30-400); HDL Cholesterol 31 mg/dL (60-100); Iron 10 ug/dL (59-158); LDL Cholesterol Calculated 14 mg/dL (50-129); LDL HDL Ratio 0.45 RATIO (0.00-3.22); Thyroid Stimulating Hormone 0.86 uIU/mL (0.27-4.20); Total Iron Binding Capacity 245 mcg/dl; Triglycerides 66 mg/dL (0-150); Unsaturated Iron Binding 235 ug/dL (112-347)
--- NOTE | 2024-05-25 17:49 | PC.NURSE ---
Patient's Daughter, Jeanie, provided admission assessment question answers via telephone.
[2024-05-25 18:02] LABS: Glucose Point of Care 111 mg/dL (70-110)
--- NOTE | 2024-05-25 18:52 | ECG_ITS ---
[facility] Test Date: 2024-05-25 Pat Name: Agus Gillette Department: Room: ICU04 Gender: Male [employer]: : 1945 Requested By: Patrick Rosa Order Number: [id number] Sloane MD: Nicola Hedrick M.D. Measurements Intervals [place] Rate: 77 P: -28 MS: 160 QRS: 20 QRSD: 121 T: 160 QT: 437 QTc: 495 Interpretive Statements SINUS RHYTHM WITH OCCASIONAL VENTRICULAR PREMATURE COMPLEXES INFERIOR MYOCARDIAL INFARCTION , PROBABLY OLD [40+ ms Q WAVE AND/OR ST/T ABNORMALITY IN II/aVF] MODERATE T-WAVE ABNORMALITY, CONSIDER LATERAL ISCHEMIA [-0.1+ mV T-WAVE IN I/aVL/V5/V6] Compared to ECG 05/25/2024 15:03:50 Myocardial infarct finding now present Electronically Signed On 05-26-2024 16:14:44 CDT by Nicola Hedrick M.D. [email or web address]
--- NOTE | 2024-05-25 19:02 | P.CONIM_ITS ---
Providers/Reason For Consult 2 Consulting Physician/Specialty*: Cardiology Reason for Consult*: Elevated troponin, previous significant cardiac history Requesting Physician: Dr. Waterman Attending Physician: Terry Waterman MD Primary Care Provider: Dheeraj Rodgers MD History of Present Illness History of Present Illness Agus Gillette is a 79 year old male with a significant previous cardiac history, old CVA and number of other comorbidities, resident of a long-term long-term presented to the ER with an apparent episode of shortness of air and unresponsiveness. As per the nursing staff from the long-term patient had a pulse all the time and there was no mention or complaint of chest pain. The EKG on arrival showed old a myocardial infarction with nonspecific ST changes. And since in the ER/hospital patient is completely asymptomatic and at his baseline status. His vital has remained within normal limits. No arrhythmia as observed on the plant scientist since admission. Noted his troponin is elevated. Raised proBNP and mildly elevated creatinine 1.3. I note his hemoglobin is also down compared to his admission last year. As per admission and ER staff patient has been at his baseline health status with no active change recently. Review of Systems 2 Narrative: Patient is a very poor historian however details a 10 point systemic review appears to be unremarkable except as mentioned above in the history of present illness. Medications/Allergies Home Medications Medication Instructions Recorded Confirmed Last Taken Type aspirin 81 mg tablet,delayed 81 mg PO DAILY #0 tabs 12/11/19 10/23/23 02/23/23 Rx release bisacodyl 10 mg rectal suppository 10 mg MT DAILY PRN Constipation ##0 12/11/19 10/23/23 Unknown History magnesium hydroxide 400 mg/5 mL 30 ml PO DAILY PRN Constipation ##0 12/11/19 10/23/23 Unknown History oral suspension (Milk of Magnesia) sodium phosphates 19 gram-7 118 ml MT DAILY PRN Constipation 12/11/19 10/23/23 Unknown History gram/118 mL enema (Fleet Enema) ##0 acetaminophen 325 mg tablet 650 mg PO Q4H PRN Mild/Mod Pain Or 04/23/20 10/23/23 Unknown History Temp >/= 101 oxycodone-acetaminophen 5 mg-325 1 tab PO Q6H PRN pain 07/27/20 10/23/23 09/29/22 History mg tablet albuterol sulfate 2.5 mg/3 mL 2.5 mg inhalation Q4H PRN 09/26/22 10/23/23 Unknown History (0.083 %) solution for nebulization Shortness Of Breath budesonide-formoterol HFA 160 2 puff inhalation BID 09/26/22 10/23/23 02/23/23 History mcg-4.5 mcg/actuation aerosol inhaler (Symbicort) buspirone 5 mg tablet 10 mg PO TID 09/26/22 10/23/23 02/23/23 History colestipol 1 gram tablet 2 g PO DAILY 09/26/22 10/23/23 02/23/23 History levothyroxine 150 mcg tablet 150 mcg PO DAILY 09/26/22 10/23/23 02/23/23 History pantoprazole 40 mg tablet,delayed 40 mg PO DAILY 09/26/22 10/23/23 02/23/23 History release metformin 1,000 mg tablet 1,000 mg PO BID 09/29/22 10/23/23 02/23/23 History duloxetine 60 mg capsule,delayed 60 mg PO BID 12/18/22 10/23/23 02/23/23 History release (Cymbalta) folic acid 1 mg tablet 1 mg PO DAILY 12/18/22 10/23/23 02/23/23 History hydroxyzine pamoate 25 mg capsule 25 mg PO Q8H PRN Anxiety 12/18/22 10/23/23 Unknown History (Vistaril) atorvastatin 20 mg tablet 20 mg PO BEDTIME 12/19/22 10/23/23 02/22/23 History cyanocobalamin (vitamin B-12) 1,000 mcg PO DAILY 12/19/22 10/23/23 02/23/23 History 1,000 mcg tablet (Vitamin B-12) ferrous gluconate 324 mg (37.5 mg 324 mg PO BIDWM #60 tabs 12/23/22 10/23/23 02/23/23 Rx iron) tablet insulin detemir U-100 100 unit/mL 30 unit (0.3 mL) SUBCUT BEDTIME 12/23/22 10/23/23 02/22/23 Rx subcutaneous solution (Levemir #10 mL U-100 Insulin) metoprolol succinate 25 mg 50 mg (2 x 25 mg) PO DAILY #60 tabs 12/23/22 10/23/23 02/23/23 Rx tablet,extended release 24 hr memantine 5 mg tablet 10 mg PO QAM 01/10/23 10/23/23 02/23/23 History alprazolam 0.5 mg tablet (Xanax) 0.5 mg PO DAILY 02/23/23 10/23/23 02/22/23 History finasteride 5 mg tablet 5 mg PO DAILY 02/23/23 10/23/23 02/23/23 History gabapentin 300 mg capsule 300 mg PO TID 02/23/23 10/23/23 02/23/23 History quetiapine 50 mg tablet 50 mg PO BID 02/23/23 10/23/23 02/22/23 History tamsulosin 0.4 mg capsule 0.4 mg PO DAILY 02/23/23 10/23/23 02/23/23 History isosorbide mononitrate 30 mg 60 mg PO DAILY 03/24/23 10/23/23 Unknown History tablet,extended release 24 hr nitroglycerin 0.4 mg sublingual 0.4 mg sublingual Q5M PRN Chest 05/22/23 10/23/23 Unknown History tablet Pain albuterol sulfate 90 mcg/actuation 2 inh inhalation Q4H PRN shortness 06/14/23 10/23/23 Unknown Rx aerosol inhaler of breath or wheezing #8.5 grams furosemide 40 mg tablet 40 mg PO DAILY 07/04/23 10/23/23 Unknown History ondansetron HCl 4 mg tablet 4 mg PO Q4H PRN Nausea 07/04/23 10/23/23 Unknown History trazodone 150 mg tablet 150 mg PO BEDTIME 07/04/23 10/23/23 Unknown History apixaban 5 mg tablet (Eliquis) 5 mg PO Q12H #60 tabs 07/25/23 10/23/23 Unknown Rx Allergies Allergy/AdvReac Type Severity Reaction Status Date / Time hydrocodone Allergy Unknown Unknown Verified 10/23/23 13:42 Penicillins Allergy Unknown Unknown Verified 10/23/23 13:42 valsartan Allergy Unknown Unknown Verified 10/23/23 13:42 simvastatin Allergy Unknown Verified 10/23/23 13:42 Current Medications Generic Name Dose Route Start Last Admin Trade Name Freq PRN Reason Stop Dose Admin Duloxetine HCl 60 mg 05/25/24 18:00 05/25/24 17:19 Duloxetine 60 Mg Capsule PO 60 mg BID TANIA Administration Heparin Sodium (Porcine) 0 unit 05/25/24 13:42 05/25/24 14:02 Heparin 5,000 Unit/Ml Inj 1 Ml IV 4,900 unit PRN PRN Administration Heparin weight-base protocol Protocol Heparin Sodium/Sodium Chloride 25,000 unit in 500 mls @ 0 mls/hr 05/25/24 13:45 05/25/24 15:05 Heparin Drip IV 14 unit/kg/hr .Q0M TANIA 27.31 mls/hr Administration Protocol Per Protocol Sodium Chloride 1,000 mls @ 100 mls/hr 05/25/24 17:06 05/25/24 17:20 Sodium Chloride 0.9% IV 100 mls/hr .Q10H TANIA Administration Magnesium Sulfate 4 gm in 100 mls @ 50 mls/hr 05/25/24 17:30 05/25/24 17:20 Magnesium Sulfate Premix IV 05/25/24 19:29 50 mls/hr ONCE ONE Administration Insulin Human Lispro 0 unit 05/25/24 18:00 05/25/24 17:58 Insulin Lispro 100 Unit/1 Ml SUBCUT Not Given TIDWM TANIA Protocol Pantoprazole Sodium 40 mg 05/25/24 17:06 05/25/24 17:19 Pantoprazole 40 Mg Sdv IVP 40 mg Q12H TANIA Administration Quetiapine Fumarate 50 mg 05/25/24 18:00 05/25/24 17:20 Quetiapine 25 Mg Tablet PO 50 mg BID TANIA Administration Sucralfate 1 gm 05/25/24 17:06 05/25/24 17:20 Sucralfate 1 Gm/10 Ml Oral Liq Udc PO 1 gm Q12H TANIA Administration PFSH Acute 2 PFSH: Medical History (Updated 05/25/24 @ 19:09 by Nicola Hedrick MD) Exertional shortness of breath Type 2 diabetes mellitus KOKI (acute kidney injury) Acute blood loss anemia Ischemic bowel disease Small bowel obstruction Insomnia disorder Chest pain Spinal cord stimulator status Chronic kidney disease, stage II (mild) Hypothyroidism Hypertension COPD (chronic obstructive pulmonary disease) Lower back pain GI bleed Systolic congestive heart failure Last echocardiogram 12/19/2022: LVEF 35-40%, mild aortic stenosis (mean gradient 7 mmHg, EVERT 1.2 cm?) LVEF decreased from 55% in 2020. CVA (cerebral vascular accident) Pulmonary embolism Coronary artery disease Surgical History H/O cardiac catheterization H/O shoulder surgery Hx of cholecystectomy History of right-sided carotid endarterectomy History of ankle surgery Family History Denies family history of Lung disease Hypertension Social History Smoking and tobacco/nicotine status: former use of tobacco/nicotine Alcohol intake: never Substance/Drug Use: never Household members: other Details: Resident of a long-term Vitals/I&O/Wt Last Vital Signs Temp 96.8 F L 05/25/24 17:10 Pulse 80 05/25/24 18:13 Resp 18 05/25/24 17:10 BP 157/120 05/25/24 17:10 Pulse Ox 99 05/25/24 17:10 O2 Del Method Nasal Cannula 05/25/24 17:36 O2 Flow Rate 3 05/25/24 17:10 Weight last 48 hrs Weight 210 lb 9 oz Weight 215 lb Physical Exam 2 Narrative: Patient laying comfortably on the bed. He is not in any respiratory distress currently. He seems to be oriented and space. Const: COMMON NORMALS: no acute distress OTHER: He is somewhat confused. He knows he is in the hospital but cannot remember the date and time. HENMT: COMMON NORMALS: normocephalic and atraumatic HEAD & SCALP: n ormocephalic and atraumatic Neck/C-Spine: COMMON NORMALS: full ROM and no JVD Resp: OTHER: Good air entry bilaterally. Minimal rales at the bases more so over right base. Otherwise unremarkable. Cardio: COMMON NORMALS: no JVD, regular rate, regular rhythm, S1 normal heart sound present and S2 normal heart sound present RATE: regular rate RHYTHM: regular rhythm HEART SOUNDS: S1 normal heart sound present and S2 normal heart sound present GI: OTHER: Soft abdomen nontender. Bowel sounds audible. Extremity: OTHER: Normal extremities. Trace pedal edema. Neuro: OTHER: He moves all his 4 limbs. Apparently normal motor functions. Skin: OTHER: Warm and dry. Data 05/25/24 13:01 05/25/24 13:01 Micro: Microbiology 05/25/24 13:06 Blood Culture - Preliminary Blood SPECIMEN COLLECTED 05/25/24 13:01 Blood Culture - Preliminary Blood SPECIMEN COLLECTED A&P Assessment and plan (1) Elevated troponin I level: Plan 79-year-old male patient with significant cardiac history including multiple PCI's, ischemic cardiomyopathy previous history of CVA, currently long-term resident of long-term, presented with vague symptoms of shortness of air followed by loss of consciousness. Apparently he did not have complete loss of consciousness although he does not remember. Concerning his underlying cardiac history cardiac arrhythmia or acute coronary syndrome or possible underlying cause of his symptoms. Currently completely asymptomatic from cardiac point of view. No angina or heart failure symptoms. Patient ruled out for acute PE with the negative CT pulmonary angio. Recommend: Agree with starting him on anticoagulation with heparin. I also recommend to start him on low-dose of beta-paulina. Will consider IV nitro in case he gets repeated episodes of chest pain. Coding Level of Care Code 24166 Diagnoses Elevated troponin I level R79.89
--- NOTE | 2024-05-25 19:04 | PC.NURSE ---
Wound note: Patient has blisters bilateral heels, covered with optifoam and patient removed dressings from rubbing heels on bed. Red patches more dominate on left knee, few on right knee. Patient states these patches are from scratching.
[2024-05-25] MEDS: ipratropium-albuterol 3 mL Neb INHALATION (19:42)
[2024-05-25 20:02] LABS: Troponin 5 6HR Delta -108.5 ng/L (0-12)
[2024-05-25 20:03] LABS: Troponin 5 6HR 407.5 ng/L (0-15)
[2024-05-25] MEDS: BuSPIRONE 10 mg Tablet PO (20:21)
[2024-05-25] MEDS: trazodone 150 mg Tablet PO (20:21)
[2024-05-25] MEDS: gabapentin 300 mg Capsule PO (20:21)
[2024-05-25] MEDS: atorvastatin 40 mg Tablet PO (20:21)
[2024-05-25 21:01] LABS: Glucose Point of Care 89 mg/dL (70-110)
[2024-05-25 21:50] LABS: Partial Thromboplastin Time > 250.0 SECONDS (23.9-36.7)
[2024-05-25 21:59] LABS: Estmated Average Glucose 148; Hemoglobin A1C 6.8 % (4.0-6.0)
[2024-05-26] VITALS (21 sets, daily range): BP systolic 97–159; BP diastolic 58–120; PULSE 59–92; RESP 12–23; TEMP 36.4–36.9; O2SAT 92–98
[2024-05-26] MEDS: ipratropium-albuterol 3 mL Neb INHALATION ×4 (01:50→21:02)
[2024-05-26 01:58] LABS: Basophils % 0.4 %; Eosinophils # 0.1 10^3/uL (0.0-0.8); Eosinophils % 0.8 %; Hematocrit 34.6 % (37-53); Lymphocytes # 2.8 10^3/uL (0.8-4.8); Lymphocytes % 30.4 %; Mean Corpuscular Hemoglobin 19.2 pg (27-33); Mean Corpuscular Volume 73.8 fl (82-101); Monocytes # 0.6 10^3/uL (0.2-0.9); Monocytes % 6.8 %; Neutrophils # 5.67 10^3/uL (1.8-7.7); Neutrophils % 61.3 %; Nucleated Red Blood Cells # 0.1 /100WBC; Nucleated Red Blood Cells % 1.2 %; Platelet Count 230 10^3/cmm (157-399); Red Blood Count 4.69 10^6/uL (3.85-5.65); White Blood Count 9.25 10^3/uL (3.29-11.43)
[2024-05-26 02:21] LABS: Alanine Aminotransferase 92 U/L (0-41); Albumin Level 2.9 g/dL (3.5-5.2); Alkaline Phosphatase 40 U/L (40-130); Aspartate Amino Transferase 140 U/L (0-40); Blood Urea Nitrogen 21 mg/dL (8-23); Calcium 6.8 mg/dL (8.5-10.5); Carbon Dioxide 20 mmol/L (22-29); Chloride 109 mmol/L (98-107); Creatinine Clr Calc Pharmacy 68.3064; Globulin 3.2 g/dL (1.3-4.6); Glucose 67 mg/dL (65-115); Magnesium 1.7 mg/dL (1.7-2.3); Osmolality Calculated 297 mOsm/kg (285-295); Phosphorus 3.6 mg/dL (2.5-4.5); Sodium 143 mmol/L (136-145); Total Bilirubin 1.3 mg/dL (0.15-1.2); Total Protein 6.1 g/dL (6.6-8.7)
[2024-05-26 02:22] LABS: Anion Gap 18.3 (5-19); Potassium 4.3 mmol/L (3.5-5.1)
--- NOTE | 2024-05-26 03:39 | PC.NURSE ---
Heparin Gtt: Dr. Harris contacted regarding resuming heparin drip after being paused. Dr. Harris said to decrease by 2unit/kg/hr from previous rate.
[2024-05-26] MEDS: memantine 5 mg tablet 10 MG PO (05:11)
[2024-05-26] MEDS: pantoprazole 40 mg SDV IVP ×2 (05:11→19:09)
[2024-05-26] MEDS: sucralfate 1 gm/10 mL Oral Liq UDC PO ×2 (05:11→19:05)
[2024-05-26 07:28] LABS: Glucose Point of Care 72 mg/dL (70-110)
[2024-05-26] MEDS: tamsulosin 0.4 mg Capsule PO (08:22)
[2024-05-26] MEDS: magnesium lactate 84 mg Tablet PO ×2 (08:22→19:06)
[2024-05-26] MEDS: aspirin 81 mg EC Tablet PO (08:22)
[2024-05-26] MEDS: folic acid 1 mg Tablet PO (08:22)
[2024-05-26] MEDS: levothyroxine 150 mcg Tablet PO (08:22)
[2024-05-26] MEDS: ALPRAZolam 0.5 mg Tablet PO (08:22)
[2024-05-26] MEDS: quetiapine 25 mg Tablet 50 MG PO ×2 (08:22→19:06)
[2024-05-26] MEDS: FUROsemide 10 mg/mL SDV 4mL 40 MG IVP ×2 (08:22→19:05)
[2024-05-26] MEDS: duloxetine 60 mg Capsule PO ×2 (08:22→19:06)
[2024-05-26] MEDS: gabapentin 300 mg Capsule PO ×3 (08:22→21:21)
[2024-05-26] MEDS: metoprolol succinate ER (24 HR) 25 mg Tablet 50 MG PO (08:22)
[2024-05-26] MEDS: BuSPIRONE 10 mg Tablet PO ×3 (08:22→21:22)
[2024-05-26 09:47] LABS: Magnesium 1.7 mg/dL (1.7-2.3)
[2024-05-26 10:15] LABS: INR 1.57 (0.8-1.2)
[2024-05-26 10:26] LABS: Partial Thromboplastin Time 96.3 SECONDS (23.9-36.7)
[2024-05-26 11:16] LABS: Glucose Point of Care 68 mg/dL (70-110)
[2024-05-26 11:45] LABS: Glucose Point of Care 68 mg/dL (70-110)
[2024-05-26 12:21] LABS: Glucose Point of Care 90 mg/dL (70-110)
[2024-05-26 12:29] LABS: Hematocrit 34.3 % (37-53)
--- NOTE | 2024-05-26 12:40 | PC.NURSE ---
Attempted to call report to CSU, nurse will call back when able to take report. Room 102.
--- NOTE | 2024-05-26 13:13 | PC.NURSE ---
Report called to DAVID Bryant on CSU, Patient transferred to room 102 via bed on 3LNC with heparin drip running per JAN. Patient resting in bed on 3L NC with no requests or complaints at the time of transfer, JEWELRY COATER at bedside. Paper chart left with staff at lead front desk agent. RT aware of new room assignment, Cardiology aware of new room assignment, Dr. Waterman notified as well. Patient belongings include pants and a belt, set on bedside table in room 102. Patients daughter notified.
[2024-05-26] MEDS: heparin 5,000 unit/mL INJ 1 mL IV (14:49)
--- NOTE | 2024-05-26 15:32 | P.PN_ITS ---
Subjective 2 Subjective: Patient was seen this morning, he is alert to person, to place, not to time, he follows commands, denies any chest pain, does have shortness of breath complaints, no facial droop, no slurring of words, no focal weakness, he does not know what happened while he was at the custodial, Vitals/I&O/Wt Last Vital Signs Temp 97.9 F 05/26/24 12:00 Pulse 81 05/26/24 13:22 Resp 16 05/26/24 13:17 BP 123/79 05/26/24 12:00 Pulse Ox 97 05/26/24 13:17 O2 Del Method Nasal Cannula 05/26/24 13:17 O2 Flow Rate 3 05/26/24 13:17 05/26/24 05/26/24 05/26/24 06:59 14:59 22:59 Intake Total 0 / 2382.584 1163.3 / 1163.3 Output Total 500 / 500 1400 / 1400 Balance -500 / 1882.584 -236.7 / -236.7 Weight last 48 hrs Weight 95.98 kg Weight 95.51 kg Weight 97.522 kg Physical Exam 2 Const: COMMON NORMALS: no acute distress and patient oriented x3 Resp: COMMON NORMALS: normal respiratory effort, No retractions and No use of accessory muscles AUSCULTATION: crackles Cardio: COMMON NORMALS: regular rate, regular rhythm, S1 normal heart sound present and S2 normal heart sound present RATE: regular rate RHYTHM: r egular rhythm HEART SOUNDS: S1 normal heart sound present and S2 normal heart sound present GI: COMMON NORMALS: Normal to inspection, nondistended, normoactive bowel sounds present and non-tender Extremity: COMMON NORMALS: no pedal edema Neuro: COMMON NORMALS: patient oriented x3 Psych: COMMON NORMALS: mental status grossly normal Data 05/26/24 12:00 05/26/24 01:50 Micro: Microbiology 05/25/24 13:06 Blood Culture - Preliminary Blood NEGATIVE TO DATE 05/25/24 13:01 Blood Culture - Preliminary Blood NEGATIVE TO DATE A&P Assessment and plan (1) Acute encephalopathy: (2) Unresponsive episode: (3) NSTEMI (non-ST elevated myocardial infarction): (4) Coronary artery disease: (5) Acute renal failure superimposed on stage 2 chronic kidney disease: (6) Transaminitis: Plan Unresponsive episode -Etiology unclear -Potentially related to cardiac event?, NSTEMI -No evidence of UTI ? No evidence of focal pneumonia -He is hypertensive in the emergency room -Stroke? CT head within normal limits, no evidence of any acute bleed, no new strokes, I cannot discern any facial droop, no slurring of his words, he has spontaneous movement of upper lower extremities. -Neurochecks,., NIH stroke scale Acute encephalopathy, resolving ? Etiology unclear NSTEMI -Stress test July 2023 ? IMPRESSIONS 1. Abnormal myocardial perfusion imaging with large sized area of prior infarct noted in left circumflex artery and RCA territories with minimal rigoberto- infarct ischemia. 2. LV systolic function severely reduced with EF of 32%. ? Plan ? No chest pain complaints ? Has complaints of shortness of breath ? Continue heparin drip ? Serial EKGs conservative once, telemetry monitoring ? Cardiac echo CONCLUSIONS Moderately reduced LV systolic function. Estimated LVEF 35 to 40%. Severe hypokinesis of inferior wall and mild hypokinesis of anterolateral wall segments. Dilated left atrium with mild mitral regurgitation. Mildly elevated pulmonary artery systolic pressure at 35 to 40 mmHg Compared to last echo report on April 2023, no significant change. ? Has received aspirin Continue heparin drip, at least 48 hours of anticoagulation, for NSTEMI ? Cardiology has been consulted BnP over 17,000, complaints of shortness of breath, history of CHF, currently 3 L ? Although clinically does not look fluid overloaded, does have crackles on exam -Will give 2 doses of IV Lasix today monitor urine output History of pulmonary embolism ? On Eliquis at custodial Switch to heparin drip History of CVA Type 2 diabetes mellitus, low-dose sliding scale History of CKD, creatinine 1.3 Acute on chronic anemia, history of GI bleeds -Hemoglobin 9.4 -Iron, ferritin, show evidence of iron deficiency Is Protonix, Carafate ? Monitor hemoglobin closely as she was evidence of iron deficiency, History of COPD Elevated lactic acid, possibly associate with NSTEMI, monitor Hypomagnesemia, magnesium level 0.8 ? Received IV replacement yesterday with 4 g of mag, continue p.o. magnesium today, magnesium levels 1.7 DNR/DNI ? Heparin drip for DVT prophylaxis ? GI prophylaxis Attestations 2 Medical Necessity Statement*: Patient requires hospitalization for acute encephalopathy, unresponsive episode, NSTEMI, anemia, fluid overload, elevated BNP Diagnoses Acute encephalopathy G93.40 Unresponsive episode R40.4 NSTEMI (non-ST elevated myocardial infarction) I21.4 Coronary artery disease I25.10 Acute renal failure superimposed on stage 2 chronic kidney disease N17.9; N18.2 Transaminitis R74.01
[2024-05-26 16:18] LABS: Partial Thromboplastin Time 81.4 SECONDS (23.9-36.7)
[2024-05-26 17:27] LABS: Glucose Point of Care 106 mg/dL (70-110)
[2024-05-26] MEDS: heparin drip 25,000 UNIT/500 ML PREMIX 19 UNIT IV (19:25)
[2024-05-26 20:24] LABS: Hematocrit 31.7 % (37-53)
[2024-05-26 20:37] LABS: Partial Thromboplastin Time 63.8 SECONDS (23.9-36.7)
[2024-05-26] MEDS: atorvastatin 40 mg Tablet PO (21:21)
[2024-05-26] MEDS: trazodone 150 mg Tablet PO (21:22)
[2024-05-26 21:48] LABS: Glucose Point of Care 127 mg/dL (70-110)
[2024-05-27] VITALS (14 sets, daily range): BP systolic 101–137; BP diastolic 62–88; PULSE 75–92; RESP 16–24; TEMP 36.3–37.3; O2SAT 90–96
[2024-05-27] MEDS: ipratropium-albuterol 3 mL Neb INHALATION ×4 (01:58→19:53)
[2024-05-27 02:02] LABS: Basophils % 0.3 %; Eosinophils # 0.1 10^3/uL (0.0-0.8); Eosinophils % 1.9 %; Hematocrit 29.6 % (37-53); Lymphocytes # 1.5 10^3/uL (0.8-4.8); Mean Corpuscular HGB Conc 28.4 g/dL (30-55); Mean Corpuscular Hemoglobin 19.6 pg (27-33); Mean Platelet Volume 10.3 fL (7.4-10.4); Monocytes # 0.5 10^3/uL (0.2-0.9); Monocytes % 6.8 %; Neutrophils # 4.61 10^3/uL (1.8-7.7); Neutrophils % 68.7 %; Nucleated Red Blood Cells # 0.1 /100WBC; Nucleated Red Blood Cells % 0.9 %; Platelet Count 239 10^3/cmm (157-399); Red Blood Count 4.29 10^6/uL (3.85-5.65); Red Cell Distribution Width 18.5 % (12.1-15.1); White Blood Count 6.72 10^3/uL (3.29-11.43)
[2024-05-27 02:14] LABS: Alanine Aminotransferase 69 U/L (0-41); Albumin Level 2.9 g/dL (3.5-5.2); Alkaline Phosphatase 39 U/L (40-130); Anion Gap 16.6 (5-19); Aspartate Amino Transferase 40 U/L (0-40); Blood Urea Nitrogen 15 mg/dL (8-23); Calcium 6.8 mg/dL (8.5-10.5); Carbon Dioxide 26 mmol/L (22-29); Chloride 105 mmol/L (98-107); Creatinine Clr Calc Pharmacy 62.2416; Globulin 2.8 g/dL (1.3-4.6); Glucose 93 mg/dL (65-115); Magnesium 1.2 mg/dL (1.7-2.3); Osmolality Calculated 299 mOsm/kg (285-295); Phosphorus 3.3 mg/dL (2.5-4.5); Potassium 3.6 mmol/L (3.5-5.1); Sodium 144 mmol/L (136-145); Total Bilirubin 1.4 mg/dL (0.15-1.2); Total Protein 5.7 g/dL (6.6-8.7)
[2024-05-27 02:18] LABS: Partial Thromboplastin Time 99.1 SECONDS (23.9-36.7)
[2024-05-27] MEDS: memantine 5 mg tablet 10 MG PO (05:45)
[2024-05-27] MEDS: sucralfate 1 gm/10 mL Oral Liq UDC PO ×2 (05:45→18:00)
[2024-05-27] MEDS: pantoprazole 40 mg SDV IVP ×2 (05:46→17:59)
[2024-05-27 06:54] LABS: Glucose Point of Care 127 mg/dL (70-110)
[2024-05-27] MEDS: levothyroxine 150 mcg Tablet PO (08:46)
[2024-05-27] MEDS: ALPRAZolam 0.5 mg Tablet PO (08:46)
[2024-05-27] MEDS: duloxetine 60 mg Capsule PO ×2 (08:47→18:00)
[2024-05-27] MEDS: quetiapine 25 mg Tablet 50 MG PO ×2 (08:47→18:00)
[2024-05-27] MEDS: folic acid 1 mg Tablet PO (08:47)
[2024-05-27] MEDS: gabapentin 300 mg Capsule PO ×2 (08:47→15:58)
[2024-05-27] MEDS: BuSPIRONE 10 mg Tablet PO ×2 (08:47→15:58)
[2024-05-27] MEDS: metoprolol succinate ER (24 HR) 25 mg Tablet 50 MG PO (08:47)
[2024-05-27] MEDS: tamsulosin 0.4 mg Capsule PO (08:47)
[2024-05-27] MEDS: magnesium lactate 84 mg Tablet PO ×2 (08:47→18:00)
[2024-05-27] MEDS: aspirin 81 mg EC Tablet PO (08:47)
[2024-05-27] MEDS: magnesium sulfate premix 2 GM/50 ML PIGGYBACK IV (08:53)
[2024-05-27 09:27] LABS: Partial Thromboplastin Time 61.8 SECONDS (23.9-36.7)
[2024-05-27] MEDS: iron sucrose 200 MG in sodium chloride 0.9% (100 ml) 100 ML 220 MG IV (09:54)
--- NOTE | 2024-05-27 10:20 | PC.SOCIAL ---
IMM Update pg 2 of IMM updated and reviewed w/ patient. Copy provided and copy dated, initialed and placed in chart.
--- NOTE | 2024-05-27 10:41 | P.PN_ITS ---
Subjective 2 Subjective: Patient denies chest pain. Had stress test today that shows large sized prior infarct in RCA territory and significant rigoberto-infarct ischemia in the inferolateral wall. Vitals/I&O/Wt Last Vital Signs Temp 97.4 F L 05/27/24 08:00 Pulse 88 05/27/24 08:00 Resp 23 H 05/27/24 08:00 BP 124/88 05/27/24 08:00 Pulse Ox 94 05/27/24 08:00 O2 Del Method Nasal Cannula 05/27/24 08:00 O2 Flow Rate 3 05/27/24 08:00 05/26/24 05/27/24 05/27/24 22:59 06:59 14:59 Intake Total 789.083 / 2022.650 373 / 2395.650 253.383 / 253.383 Output Total 2300 / 3700 1075 / 4775 Balance -1510.917 / -1677.350 -702 / -2379.350 253.383 / 253.383 Weight last 48 hrs Weight 208 lb 8 oz Weight 211 lb 9.6 oz Weight 210 lb 9 oz Weight 215 lb Physical Exam 2 Narrative: GENERAL: Patient is alert, awake and oriented x3. [] NECK: No jugular vein distension. [] HEENT: No cyanosis. No icterus. No pallor. [] HEART: Regular S1 and S2. No murmur, rub or gallop. [] LUNGS: Clear to auscultate bilaterally. [] CENTRAL NERVOUS SYSTEM: Grossly nonfocal. [] EXTREMITIES: Lower extremities with 1+ edema bilaterally. Data 05/29/24 03:58 05/29/24 03:58 Micro: Microbiology 05/25/24 13:06 Blood Culture - Preliminary Blood NEGATIVE TO DATE 05/25/24 13:01 Blood Culture - Preliminary Blood NEGATIVE TO DATE A&P Assessment and plan (1) Acute encephalopathy: (2) Unresponsive episode: (3) NSTEMI (non-ST elevated myocardial infarction): (4) Coronary artery disease: (5) Acute renal failure superimposed on stage 2 chronic kidney disease: (6) Transaminitis: Plan Stress test is significantly abnormal. Given elevated troponins, we will proceed with coronary angiogram with possible PCI. Risks and benefits of procedure been discussed with the patient and his daughter. They understand it and want to proceed. Also discussed will switch CODE STATUS to full code for duration of procedure. They are agreeable to it. Continue current medications NPO past midnight Thank you for involving is with care of this patient. We will continue to follow. Please call with questions. Attestations 2 Medical Necessity Statement*: Care expected to cross 2 midnights. Coding Level of Care Code Acute Code for Chg Fwd Diagnoses Acute encephalopathy G93.40 Unresponsive episode R40.4 NSTEMI (non-ST elevated myocardial infarction) I21.4 Coronary artery disease I25.10 Acute renal failure superimposed on stage 2 chronic kidney disease N17.9; N18.2 Transaminitis R74.01
[2024-05-27 11:09] LABS: Basophils % 0.4 %; Eosinophils # 0.1 10^3/uL (0.0-0.8); Eosinophils % 1.8 %; Hematocrit 31.4 % (37-53); Lymphocytes # 1.6 10^3/uL (0.8-4.8); Lymphocytes % 21.6 %; Mean Corpuscular HGB Conc 27.4 g/dL (30-55); Mean Corpuscular Hemoglobin 19.3 pg (27-33); Mean Corpuscular Volume 70.6 fl (82-101); Mean Platelet Volume 10.4 fL (7.4-10.4); Monocytes # 0.5 10^3/uL (0.2-0.9); Monocytes % 6.8 %; Neutrophils # 5.25 10^3/uL (1.8-7.7); Nucleated Red Blood Cells # 0.1 /100WBC; Nucleated Red Blood Cells % 0.7 %; Platelet Count 229 10^3/cmm (157-399); Red Blood Count 4.45 10^6/uL (3.85-5.65); Red Cell Distribution Width 18.5 % (12.1-15.1); White Blood Count 7.61 10^3/uL (3.29-11.43)
[2024-05-27 12:50] LABS: Glucose Point of Care 170 mg/dL (70-110)
[2024-05-27] MEDS: insulin lispro 100 unit/1 mL SUBCUT (13:13)
[2024-05-27] MEDS: FUROsemide 10 mg/mL SDV 4mL 40 MG IVP (13:14)
[2024-05-27] MEDS: potassium chloride ER 20 mEq Tablet 40 MEQ PO (13:14)
--- NOTE | 2024-05-27 14:16 | P.PN_ITS ---
Subjective 2 Subjective: Patient was seen this morning, he is alert and awake, following all commands, denies any fevers, no chills, no cough, no chest pain, he tells me that he is able to transfer to a wheelchair, denies any recent shortness of breath with exertion Vitals/I&O/Wt Last Vital Signs Temp 97.9 F 05/27/24 12:00 Pulse 80 05/27/24 12:00 Resp 19 H 05/27/24 12:00 BP 101/62 05/27/24 12:00 Pulse Ox 95 05/27/24 12:00 O2 Del Method Nasal Cannula 05/27/24 12:00 O2 Flow Rate 3 05/27/24 12:00 05/26/24 05/27/24 05/27/24 22:59 06:59 14:59 Intake Total 789.083 / 2022.650 373 / 2395.650 553.383 / 553.383 Output Total 2300 / 3700 1075 / 4775 Balance -1510.917 / -1677.350 -702 / -2379.350 553.383 / 553.383 Weight last 48 hrs Weight 94.574 kg Weight 95.98 kg Weight 95.51 kg Physical Exam 2 Const: COMMON NORMALS: no acute distress and patient oriented x3 Resp: COMMON NORMALS: normal respiratory effort, No retractions, No use of accessory muscles and clear to auscultation bilaterally AUSCULTATION: clear to auscultation bilaterally Cardio: COMMON NORMALS: regular rate, regular rhythm, S1 normal heart sound present and S2 normal heart sound present RATE: regular rate RHYTHM: r egular rhythm HEART SOUNDS: S1 normal heart sound present and S2 normal heart sound present GI: COMMON NORMALS: Normal to inspection, nondistended, normoactive bowel sounds present and non-tender Extremity: COMMON NORMALS: no pedal edema Neuro: COMMON NORMALS: patient oriented x3 Psych: COMMON NORMALS: mental status grossly normal Data 05/27/24 11:00 05/27/24 01:47 Micro: Microbiology 05/25/24 13:06 Blood Culture - Preliminary Blood NEGATIVE TO DATE 05/25/24 13:01 Blood Culture - Preliminary Blood NEGATIVE TO DATE A&P Assessment and plan (1) Acute encephalopathy: (2) Unresponsive episode: (3) NSTEMI (non-ST elevated myocardial infarction): (4) Coronary artery disease: (5) Acute renal failure superimposed on stage 2 chronic kidney disease: (6) Transaminitis: Plan Unresponsive episode -Etiology unclear -Potentially related to cardiac event?, NSTEMI -No evidence of UTI ? No evidence of focal pneumonia -He is hypertensive in the emergency room -Stroke? CT head within normal limits, no evidence of any acute bleed, no new strokes, I cannot discern any facial droop, no slurring of his words, he has spontaneous movement of upper lower extremities. -Neurochecks,., NIH stroke scale Acute encephalopathy, resolving ? Etiology unclear NSTEMI -Stress test July 2023 ? IMPRESSIONS 1. Abnormal myocardial perfusion imaging with large sized area of prior infarct noted in left circumflex artery and RCA territories with minimal rigoberto- infarct ischemia. 2. LV systolic function severely reduced with EF of 32%. ? Plan ? No chest pain complaints ? Has complaints of shortness of breath ? Continue heparin drip ? Serial EKGs conservative once, telemetry monitoring ? Cardiac echo CONCLUSIONS Moderately reduced LV systolic function. Estimated LVEF 35 to 40%. Severe hypokinesis of inferior wall and mild hypokinesis of anterolateral wall segments. Dilated left atrium with mild mitral regurgitation. Mildly elevated pulmonary artery systolic pressure at 35 to 40 mmHg Compared to last echo report on April 2023, no significant change. ? Has received aspirin Continue heparin drip, at least 48 hours of anticoagulation, for NSTEMI ? Cardiology has been consulted BnP over 17,000, complaints of shortness of breath, history of CHF, currently 3 L ? Although clinically does not look fluid overloaded, does have crackles on exam -Will give 2 doses of IV Lasix today monitor urine output History of pulmonary embolism ? On Eliquis at halfway Switch to heparin drip History of CVA Type 2 diabetes mellitus, low-dose sliding scale History of CKD, creatinine 1.3 Acute on chronic anemia, history of GI bleeds -Hemoglobin 9.4 -Iron, ferritin, show evidence of iron deficiency Is Protonix, Carafate ? Monitor hemoglobin closely as she was evidence of iron deficiency, History of COPD Elevated lactic acid, possibly associate with NSTEMI, monitor Hypomagnesemia, magnesium level 0.8 ? Received IV replacement with 1 g of mag, continue p.o. magnesium today, magnesium levels 1.7 DNR/DNI ? Heparin drip for DVT prophylaxis ? GI prophylaxis Plan for today, received 1 dose of Lasix today for fluid overload -3 L so far, potassium replacement, magnesium replacement, spoke to cardiology, given unresponsive episode, plan on cardiac stress test tomorrow morning, n.p.o. over midnight, PT OT, up out of bed, will check orthostatic vitals Attestations 2 Medical Necessity Statement*: Patient requires hospitalization for unresponsive episode, NSTEMI, fluid overload, CHF, hypomagnesemia, hypokalemia, Diagnoses Acute encephalopathy G93.40 Unresponsive episode R40.4 NSTEMI (non-ST elevated myocardial infarction) I21.4 Coronary artery disease I25.10 Acute renal failure superimposed on stage 2 chronic kidney disease N17.9; N18.2 Transaminitis R74.01
--- NOTE | 2024-05-27 14:17 | ECG_ITS ---
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 Interpretive Statements NAME OF STUDY: LEXISCAN SESTAMIBI STRESS TEST INDICATION: [Chest Pain, ] [email or web address]
[2024-05-27 15:51] LABS: Partial Thromboplastin Time 59.2 SECONDS (23.9-36.7)
[2024-05-27 18:09] LABS: Glucose Point of Care 147 mg/dL (70-110)
[2024-05-27 21:12] LABS: Glucose Point of Care 134 mg/dL (70-110)
--- NOTE | 2024-05-27 21:21 | PC.NURSE ---
Messaged regarding patient very difficult to rouse, has been sleeping most of the day according to day shift. Patients medication frequency and doses were found to be incorrect after completing patient medication rec. Concern that patient may be over sedated. order to hold night meds and get an ABG.
[2024-05-27 21:59] LABS: ABG PCO2 38.3 mmHg (35-45); Alveolar-Arterial Oxygen Gradi 5.3 mmHg (5-10); Arterial Blood Gas Hematocrit 29.6 % (42-52); Base Excess ABG 6.4 mmol/L (-2.0-2.0); Blood Gas Allen Test Pos; Blood Gas Operator Identificat JB; Blood Gas Sample Site Radial, right; Blood Gas Sample Type Arterial; Carboxyhemoglobin 1.5 %THgb (0.4-20.1); HGB O2 Sat 89.7 % (95-100); Methemoglobin 0.6 % (0.4-1.5); Oxygen Device NC; Oxygen Saturation ABG 91.6; Potassium Level - ABG 3.7 mmol/L (3.5-5.0); Total Hemoglobin 9.7 g/dL (14-18)
[2024-05-27 22:46] LABS: Partial Thromboplastin Time 64.7 SECONDS (23.9-36.7)
--- NOTE | 2024-05-27 23:51 | PC.NURSE ---
Made aware of ABG results. Discussed with patients seroquel and trazadone orders not matching dose and frequency of home med list. said change doses to match orders from home.
[2024-05-28] VITALS (11 sets, daily range): BP systolic 100–136; BP diastolic 53–85; PULSE 0–93; RESP 13–20; TEMP 36.6–37.1; O2SAT 93–99
[2024-05-28] MEDS: ipratropium-albuterol 3 mL Neb INHALATION ×3 (02:36→19:26)
[2024-05-28] MEDS: acetaminophen 325 mg Tablet 650 MG PO (03:03)
[2024-05-28 04:27] LABS: Basophils % 0.3 %; Eosinophils # 0.1 10^3/uL (0.0-0.8); Eosinophils % 1.1 %; Hematocrit 32.8 % (37-53); Lymphocytes # 1.8 10^3/uL (0.8-4.8); Mean Corpuscular HGB Conc 27.4 g/dL (30-55); Mean Corpuscular Hemoglobin 19.5 pg (27-33); Mean Platelet Volume 10.8 fL (7.4-10.4); Monocytes # 0.6 10^3/uL (0.2-0.9); Monocytes % 5.7 %; Neutrophils # 8.12 10^3/uL (1.8-7.7); Neutrophils % 75.5 %; Nucleated Red Blood Cells # 0.1 /100WBC; Nucleated Red Blood Cells % 0.7 %; Platelet Count 256 10^3/cmm (157-399); Red Blood Count 4.62 10^6/uL (3.85-5.65); Red Cell Distribution Width 18.6 % (12.1-15.1); White Blood Count 10.75 10^3/uL (3.29-11.43)
[2024-05-28 04:50] LABS: Partial Thromboplastin Time 55.9 SECONDS (23.9-36.7)
[2024-05-28 04:55] LABS: Alanine Aminotransferase 61 U/L (0-41); Alkaline Phosphatase 44 U/L (40-130); Aspartate Amino Transferase 31 U/L (0-40); Blood Urea Nitrogen 13 mg/dL (8-23); Calcium 7.5 mg/dL (8.5-10.5); Carbon Dioxide 23 mmol/L (22-29); Chloride 103 mmol/L (98-107); Creatinine Clr Calc Pharmacy 61.8084; Globulin 3.2 g/dL (1.3-4.6); Glucose 115 mg/dL (65-115); Magnesium 1.6 mg/dL (1.7-2.3); Osmolality Calculated 297 mOsm/kg (285-295); Phosphorus 2.7 mg/dL (2.5-4.5); Sodium 143 mmol/L (136-145); Total Bilirubin 1.6 mg/dL (0.15-1.2); Total Protein 6.2 g/dL (6.6-8.7)
[2024-05-28] MEDS: sucralfate 1 gm/10 mL Oral Liq UDC PO ×2 (05:10→16:29)
[2024-05-28] MEDS: pantoprazole 40 mg SDV IVP ×2 (05:10→16:29)
[2024-05-28] MEDS: heparin drip 25,000 UNIT/500 ML PREMIX 13 UNIT IV ×2 (05:10→14:23)
[2024-05-28] MEDS: memantine 5 mg tablet 10 MG PO (05:10)
[2024-05-28 06:15] LABS: Glucose Point of Care 99 mg/dL (70-110)
[2024-05-28] MEDS: regadenoson 0.4 Mg/5 ml Syringe IVP (07:46)
[2024-05-28 08:37] LABS: NT Pro B Type Natriuretic Pept 7789 pg/mL (0-450)
--- NOTE | 2024-05-28 08:37 | PC.NURSE ---
Patient off unit for cardiac stress test at this time.
--- NOTE | 2024-05-28 09:02 | PC.OT ---
OT EVALUATION HELD DUE TO PATIENT IN STRESS TEST THIS A.M. WILL ATTEMPT AGAIN AT A LATER TIME
[2024-05-28] MEDS: FUROsemide 10 mg/mL SDV 4mL 40 MG IVP (09:13)
[2024-05-28] MEDS: tamsulosin 0.4 mg Capsule PO (09:13)
[2024-05-28] MEDS: folic acid 1 mg Tablet PO (09:13)
[2024-05-28] MEDS: ALPRAZolam 0.5 mg Tablet PO (09:13)
[2024-05-28] MEDS: BuSPIRONE 10 mg Tablet PO ×3 (09:13→21:43)
[2024-05-28] MEDS: metoprolol succinate ER (24 HR) 25 mg Tablet 50 MG PO (09:13)
[2024-05-28] MEDS: potassium chloride ER 20 mEq Tablet PO (09:13)
[2024-05-28] MEDS: levothyroxine 150 mcg Tablet PO (09:13)
[2024-05-28] MEDS: magnesium lactate 84 mg Tablet PO ×2 (09:13→16:28)
[2024-05-28] MEDS: duloxetine 60 mg Capsule PO ×2 (09:13→16:28)
[2024-05-28] MEDS: aspirin 81 mg EC Tablet PO (09:13)
[2024-05-28] MEDS: gabapentin 300 mg Capsule PO ×3 (09:13→21:43)
--- NOTE | 2024-05-28 10:36 | PC.PT ---
Therapist entered pt's room at 10:06. Pt is asleep but is easily woken up when therapist enters room. Therapist educates pt on physical therapy and the need for the evaluation, and pt is refusing to participate with therapy at this time, stating I am completely exhausted and I'm not able to do anything right now . Pt is educated on the benefits of working with therapy in order to gain his strength back, but pt continuously requests for therapy to come back tomorrow. Despite encouragement and education, pt refuses PT evaluation today. PT will return as able and as time allows.
[2024-05-28] MEDS: iron sucrose 200 MG in sodium chloride 0.9% (100 ml) 100 ML 220 MG IV (10:54)
--- NOTE | 2024-05-28 11:00 | PC.NURSE ---
Patient confused this am. Refusing to leave telemetry in place. He will remove immediately after application.
--- NOTE | 2024-05-28 11:57 | XRR_ITS ---
PROCEDURE INFORMATION: Exam: XR Chest Exam date and time: 05/28/2024 12:20 PM Age: 79 years old Clinical indication: Shortness of breath; Additional info: SOB TECHNIQUE: Imaging protocol: Radiologic exam of the chest. Views: 1 view. COMPARISON: CT angio chest w abd pel w con 05/25/2024 2:20 PM FINDINGS: Tubes, catheters and devices: Neurostimulator lead projects over the thoracic spine. Surgical clips project over the right lower neck soft tissues. Lungs: Low lung volumes. There are increased lung markings and haziness of the lungs, which in the setting of cardiomegaly is suggestive of pulmonary congestion. Pneumonia should be excluded clinically. Pleural spaces: Unremarkable. No pleural effusion. No pneumothorax. Heart/Mediastinum: Stable cardiomediastinal silhouette. Bones/joints: Unremarkable. XR/XR chest 1V portable [id number] IMPRESSION: Imaging findings suggestive of pulmonary congestion. Pneumonia should be excluded clinically.
[2024-05-28 12:08] LABS: Glucose Point of Care 153 mg/dL (70-110)
--- NOTE | 2024-05-28 14:17 | NMCV_ITS ---
NM luz perf SPECT r/s* [id number] Agus Gillette Age: 79 Gender: M : 1945 Exam Date: 05/28/2024 06:27 Ordering Phys: Terry Waterman MD Technologist: GHAZAL Gruber Exam Location: [facility] Indications: CP, SOB STRESS TEST Please see separate stress test report in [facility] for full findings IMAGE PROTOCOL Rest/Stress 1 Lexiscan Day Radiopharmaceutical Dose (mCi) Administration Site Administered by Rest: Tc-99m 10.2 IV GHAZAL Gruber Sestamibi Stress:Tc-99m 33.0 IV GHAZAL Gruber Sestamibi Rest: 28-May-2024 60 Discovery 630 Stress: 28-May-2024 30 Discovery 630 0.4mg Lexiscan. Supine position only as patient was unable to lay prone. SPECT RESULTS Technical Quality: Good Raw Data Analysis: Normal Image Corrections: No attenuation or motion correction applied Summed Stress Score: 18 Summed Rest Score: 19 Summed Difference Score: 2 PERFUSION FINDINGS There is a large sized, mostly fixed perfusion defect seen in the inferior wall. This is consistent with large sized area of prior infarct with minimal rigoberto-infarct ischemia seen in the RCA territory. Large area of partially reversible perfusion defect seen in the inferolateral wall. This is consistent with medium sized area of prior infarct with large area of rigoberto-infarct ischemia in the left circumflex artery territory. FUNCTIONAL RESULTS (calculated via Gated SPECT) Stress Image LV EF (%): 31 Stress EDV (mL):187 TID: 0.9 Stress ESV (mL):129 FUNCTIONAL FINDINGS: LV systolic function is severely reduced IMPRESSIONS 1. Abnormal myocardial perfusion imaging with large area of prior infarct with minimal rigoberto-infarct ischemia seen in RCA territory. 2. Medium sized area of prior infarct with large area of rigoberto-infarct ischemia seen in left circumflex artery territory. 3. LV systolic function is severely reduced. Miguel Coats MD (Electronically Signed) Final Date: 28 May 2024 09:54 S
[2024-05-28 14:54] LABS: Glucose Urine UA Norm (Normal); Ketones Urine Negative (Negative); Protein Urine Trace (Negative); Specific Gravity, Urine 1.015 (1.005-1.030); Urine Appearance Clear (CLEAR); Urine Color Yellow (Yellow); pH Urine 5 (5-7)
[2024-05-28 14:55] LABS: Add Urine Microscopic? YES; Bilirubin Urine Neg (Negative); Blood Urine 2+ (Negative); Leukocyte Esterase Urine Negative (Negative); Nitrate Urine Negative (Negative); Urobilinogen Urine Norm (Negative)
[2024-05-28 15:04] LABS: Add Urine Culture? No; Bacteria Urine TRACE /hpf; Hyaline Casts Urine 0-4 /lpf; Mucus Urine 1+ /hpf; RBC Urine 0-4 /hpf (0-2); Squamous Epithelial Cell Urine 0-4 /hpf (0-5); Transitional Epi Cells Urine 0-4 /hpf; WBC Urine RARE /hpf (0-5)
[2024-05-28] MEDS: quetiapine 25 mg Tablet 50 MG PO (16:29)
[2024-05-28 16:56] LABS: Partial Thromboplastin Time 55.5 SECONDS (23.9-36.7)
[2024-05-28 17:24] LABS: Glucose Point of Care 124 mg/dL (70-110)
--- NOTE | 2024-05-28 18:11 | P.PN_ITS ---
Subjective 2 Subjective: - Patient was examined multiple times ab out the morning -Early in the morning he was examined, r eceiving his stress test he is alert to person, to place, not to time, denies any chest pain, no palpitations, does report shortness of breath, denies any chest pain during the stress test -Results of the stress test shows medium sized area of prior infarct with a large area of rigoberto-infarct ischemia seen in the left circumflex territory, spoke to cardiology about results, plans on coronary angiography based upon goals of care discussion with patient ? Spoke to patient he is alert to person, to place, not to time he does have episodes of confusion, I had a detailed discussion with him about his stress test, his unresponsive episode, the concern was that did he have an acute coronary event given his stress test, his elevated troponins, discussed risk and benefits, he voiced understanding, all questions answered, he agreed to proceed, however it was difficult to gauge if he truly understood the significance of the information that I had given to him ? I had a discussion with him about his goals of care, he tells me that he is a DNR, DNI ? As I am unsure if he really understands the significant information, I had a discussion with patient's daughter, who is patient's Jeanie Jones -Discussed overall goals of care, discus sed positive stress test patient's unresponsive episode, discussed overall goals of care, discussed about proceeding to coronary angiography given positive stress test results, unresponsive episode, NSTEMI, discussed risk and benefits of coronary angiography, she voiced understanding, all questions answered, shared decision making, agreed to proceed - Vitals/I&O/Wt Last Vital Signs Temp 98.1 F 05/28/24 16:00 Pulse 86 05/28/24 16:00 Resp 20 H 05/28/24 16:00 BP 136/61 05/28/24 16:00 Pulse Ox 93 05/28/24 16:00 O2 Del Method Nasal Cannula 05/28/24 16:00 O2 Flow Rate 3 05/28/24 14:28 05/28/24 05/28/24 05/28/24 06:59 14:59 22:59 Intake Total 171.383 / 807.749 589.817 / 589.817 33.8 / 623.617 Output Total 200 / 2100 1350 / 1350 Balance -28.617 / -1292.251 -760.183 / -760.183 33.8 / -726.383 Weight last 48 hrs Weight 94.483 kg Weight 94.574 kg Physical Exam 2 Const: COMMON NORMALS: no acute distress ORIENTATION/CONSCIOUSNESS: Yes awake, Yes oriented to person, Yes oriented to place and Yes confused; not oriented to time Resp: COMMON NORMALS: normal respiratory effort, No retractions and No use of accessory muscles AUSCULTATION: crackles and wheezes Cardio: COMMON NORMALS: regular rate, regular rhythm, S1 normal heart sound present and S2 normal heart sound present RATE: regular rate RHYTHM: r egular rhythm HEART SOUNDS: S1 normal heart sound present and S2 normal heart sound present GI: COMMON NORMALS: Normal to inspection, nondistended, normoactive bowel sounds present and non-tender Extremity: COMMON NORMALS: no pedal edema Neuro: SENSORIUM/ORIENTATION: Yes oriented to person, Yes oriented to place and No oriented to time Psych: COMMON NORMALS: mental status grossly normal Data 05/28/24 04:14 05/28/24 04:14 A&P Assessment and plan (1) Acute encephalopathy: (2) Unresponsive episode: (3) NSTEMI (non-ST elevated myocardial infarction): (4) Coronary artery disease: (5) Acute renal failure superimposed on stage 2 chronic kidney disease: (6) Transaminitis: Plan Unresponsive episode -Concerning for cardiac etiology given positive stress test, NSTEMI -No evidence of UTI ? No evidence of focal pneumonia -He is hypertensive in the emergency room -Stroke? CT head within normal limits, no evidence of any acute bleed, no new strokes, I cannot discern any facial droop, no slurring of his words, he has spontaneous movement of upper lower extremities. -Neurochecks,., NIH stroke scale Acute encephalopathy, has episodes of confusion, ? Repeat UA NSTEMI -Stress test July 2023 ? IMPRESSIONS 1. Abnormal myocardial perfusion imaging with large sized area of prior infarct noted in left circumflex artery and RCA territories with minimal rigoberto- infarct ischemia. 2. LV systolic function severely reduced with EF of 32%. ? Plan ? No chest pain complaints ? Has complaints of shortness of breath ? Continue heparin drip ? Serial EKGs conservative once, telemetry monitoring ? Cardiac echo CONCLUSIONS Moderately reduced LV systolic function. Estimated LVEF 35 to 40%. Severe hypokinesis of inferior wall and mild hypokinesis of anterolateral wall segments. Dilated left atrium with mild mitral regurgitation. Mildly elevated pulmonary artery systolic pressure at 35 to 40 mmHg Compared to last echo report on April 2023, no significant change. ? Has received aspirin stresss test IMPRESSIONS 1. Abnormal myocardial perfusion imaging with large area of prior infarct with minimal rigoberto-infarct ischemia seen in RCA territory. 2. Medium sized area of prior infarct with large area of rigoberto-infarct ischemia seen in left circumflex artery territory. 3. LV systolic function is severely reduced. PLAN Continue heparin drip, at least 48 hours of anticoagulation, for NSTEMI ? Cardiology has been consulted -Plan on coronary angiography CHF exacerbation BnP over 7,000, complaints of shortness of breath, history of CHF, currently 3 L, -3 L so far ?Does appear fluid overloaded, 2 doses of IV Lasix -Will give 2 doses of IV Lasix today monitor urine output History of pulmonary embolism ? On Eliquis at senior care heparin drip History of CVA Type 2 diabetes mellitus, low-dose sliding scale History of CKD, Acute on chronic anemia, history of GI bleeds -Hemoglobin 9.4 -Iron, ferritin, show evidence of iron deficiency, will replace IV Venofer Is Protonix, Carafate ? Monitor hemoglobin closely as she was evidence of iron deficiency, History of COPD Elevated lactic acid, possibly associate with NSTEMI, monitor Hypomagnesemia, magnesium level 0.8 ? Received IV replacement with 1 g of mag, continue p.o. magnesium today, magnesium levels 1.6 DNR/DNI ? Heparin drip for DVT prophylaxis ? GI prophylaxis Plan for today, given positive stress test, goals of care discussion, plan on proceeding to coronary angiography has episodes of confusion, UA, repeat chest x-ray, monitor mentation, fluid overload IV Lasix, spoke to patient spoke to patient's DPOA, spoke to cardiology, Attestations 2 Medical Necessity Statement*: Patient requires hospitalization for unresponsive episode, positive stress test, fluid overload, encephalopathy, Diagnoses Acute encephalopathy G93.40 Unresponsive episode R40.4 NSTEMI (non-ST elevated myocardial infarction) I21.4 Coronary artery disease I25.10 Acute renal failure superimposed on stage 2 chronic kidney disease N17.9; N18.2 Transaminitis R74.01
[2024-05-28 20:05] LABS: Glucose Point of Care 119 mg/dL (70-110)
[2024-05-28] MEDS: atorvastatin 40 mg Tablet PO (21:43)
[2024-05-28] MEDS: trazodone 50 mg Tablet PO (21:43)
[2024-05-29] VITALS (15 sets, daily range): BP systolic 93–147; BP diastolic 49–82; PULSE 70–102; RESP 17–26; TEMP 36.4–36.7; O2SAT 3–99
[2024-05-29 04:14] LABS: Basophils % 0.3 %; Eosinophils # 0.2 10^3/uL (0.0-0.8); Eosinophils % 1.9 %; Hematocrit 33.6 % (37-53); Lymphocytes # 1.3 10^3/uL (0.8-4.8); Lymphocytes % 16.6 %; Mean Corpuscular HGB Conc 26.8 g/dL (30-55); Mean Corpuscular Volume 70.9 fl (82-101); Mean Platelet Volume 10.4 fL (7.4-10.4); Monocytes # 0.5 10^3/uL (0.2-0.9); Monocytes % 5.8 %; Neutrophils # 5.79 10^3/uL (1.8-7.7); Neutrophils % 74.9 %; Nucleated Red Blood Cells % 0.4 %; Platelet Count 243 10^3/cmm (157-399); Red Blood Count 4.74 10^6/uL (3.85-5.65); Red Cell Distribution Width 18.6 % (12.1-15.1); White Blood Count 7.73 10^3/uL (3.29-11.43)
[2024-05-29 04:27] LABS: Partial Thromboplastin Time 65.8 SECONDS (23.9-36.7)
[2024-05-29 04:41] LABS: Alanine Aminotransferase 44 U/L (0-41); Albumin Level 2.9 g/dL (3.5-5.2); Alkaline Phosphatase 47 U/L (40-130); Aspartate Amino Transferase 20 U/L (0-40); Blood Urea Nitrogen 11 mg/dL (8-23); Calcium 7.8 mg/dL (8.5-10.5); Carbon Dioxide 24 mmol/L (22-29); Chloride 105 mmol/L (98-107); Creatinine Clr Calc Pharmacy 61.7804; Globulin 3.3 g/dL (1.3-4.6); Glucose 123 mg/dL (65-115); NT Pro B Type Natriuretic Pept 6056 pg/mL (0-450); Osmolality Calculated 299 mOsm/kg (285-295); Sodium 144 mmol/L (136-145); Total Bilirubin 1.5 mg/dL (0.15-1.2); Total Protein 6.2 g/dL (6.6-8.7)
[2024-05-29 04:47] LABS: Magnesium 1.4 mg/dL (1.7-2.3)
[2024-05-29] MEDS: pantoprazole 40 mg SDV IVP ×2 (05:42→19:00)
[2024-05-29] MEDS: aspirin 325 mg Tablet PO (05:43)
[2024-05-29] MEDS: diphenhydrAMINE 50 mg Capsule PO (05:43)
[2024-05-29] MEDS: sodium chloride 0.9% 1,000 ML 50 ML IV ×2 (05:44→09:49)
[2024-05-29 06:36] LABS: Glucose Point of Care 128 mg/dL (70-110)
--- NOTE | 2024-05-29 07:27 | W.PM.OPSUD ---
Surgery/Procedure H&P Update DATE OF PROCEDURE: May 29, 2024 DATE H&P PERFORMED: 05/25/24 H&P UPDATE INFORMATION: I have reviewed H&P completed within last 30 days, I have examined patient prior to procedure and Changes to prior documentation as noted here CHANGES TO PREVIOUS DOCUMENTATION: Patient had significant troponin elevation at admission. Stress test is abnormal. Plan for coronary angiogram with possible PCI PRIMARY INDICATION FOR PROCEDURE: Troponin elevation/abnormal stress test PLANNED PROCEDURE: Troponin elevation/abnormal stress test PATIENT REASSESSED PRIOR TO SEDATION, WITH NO CHANGE NOTED: Yes PHYSICAL EXAM: alert, oriented x 3, clear to auscultation bilaterally and regular rate & rhythm AIRWAY EVAL/ANESTHESIA PLAN: normal airway, ASA III, Local Anesthesia, Risks, benefits & alternatives of sedation and/or procedure discussed and Patient agrees to continue as planned ADDITIONAL INFORMATION: Moderate sedation
--- NOTE | 2024-05-29 08:30 | SUR.EXTENDED ---
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 Patient drowsy. Awakens to verbal stimuli. home health occupational therapist placed and vital signs obtained. 6 Scottish sheath sutured in the right groin to pressure bag. No bleeding or hematoma noted. Dressing D/I. Will transfer to room 111-2 after recovery. No concerns voiced at this time.
--- NOTE | 2024-05-29 09:02 | SUR.EXTENDED ---
Patient transferred to [facility] via bed.
--- NOTE | 2024-05-29 09:33 | PM.PN ---
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 He is chest pain free. Vitals/I&O/Wt Last Vital Signs Temp 98.0 F 05/29/24 04:00 Pulse 90 05/29/24 09:25 Resp 24 H 05/29/24 09:25 BP 140/80 05/29/24 09:25 Pulse Ox 98 05/29/24 09:25 O2 Del Method Nasal Cannula 05/29/24 09:25 O2 Flow Rate 4 05/29/24 09:25 05/28/24 05/29/24 05/29/24 22:59 06:59 14:59 Intake Total 33.8 / 623.617 Output Total 750 / 2100 Balance -716.2 / -1476.383 Weight last 48 hrs Weight 207 lb Weight 208 lb 4.8 oz Physical Exam Narrative: GENERAL: Patient is alert, awake and oriented x3. [] NECK: No jugular vein distension. [] HEENT: No cyanosis. No icterus. No pallor. [] HEART: Regular S1 and S2. No murmur, rub or gallop. [] LUNGS: Clear to auscultate bilaterally. [] CENTRAL NERVOUS SYSTEM: Grossly nonfocal. [] EXTREMITIES: Lower extremities with 1+ edema bilaterally. Data 05/30/24 04:19 05/30/24 04:19 A&P Assessment and plan (1) Acute encephalopathy: (2) Unresponsive episode: (3) NSTEMI (non-ST elevated myocardial infarction): (4) Coronary artery disease: (5) Acute renal failure superimposed on stage 2 chronic kidney disease: (6) Transaminitis: Plan Coronary angiogram demonstrated CLEARING DISTRIBUTION CLERK of RCA with moderate left main disease confirmed to be nonsignificant with IVUS. Continue aspirin. Resume Eliquis tonight. Thank you for involving is with care of this patient. We will continue to follow. Please call with questions. Attestations Medical Necessity Statement*: Care expected to cross 2 midnights. Coding Level of Care Code Acute Code for [facility] Fwd Diagnoses Acute encephalopathy G93.40 Unresponsive episode R40.4 NSTEMI (non-ST elevated myocardial infarction) I21.4 Coronary artery disease I25.10 Acute renal failure superimposed on stage 2 chronic kidney disease N17.9; N18.2 Transaminitis R74.01
[2024-05-29] MEDS: gabapentin 300 mg Capsule PO ×3 (09:49→21:29)
[2024-05-29] MEDS: metoprolol succinate ER (24 HR) 25 mg Tablet 50 MG PO (09:49)
[2024-05-29] MEDS: iron sucrose 200 MG in sodium chloride 0.9% (100 ml) 100 ML 220 MG IV (09:49)
[2024-05-29] MEDS: duloxetine 60 mg Capsule PO ×2 (09:49→19:00)
[2024-05-29] MEDS: levothyroxine 150 mcg Tablet PO (09:49)
[2024-05-29] MEDS: magnesium lactate 84 mg Tablet PO ×2 (09:49→18:59)
[2024-05-29] MEDS: folic acid 1 mg Tablet PO (09:50)
[2024-05-29] MEDS: BuSPIRONE 10 mg Tablet PO ×3 (09:50→21:29)
[2024-05-29] MEDS: aspirin 81 mg EC Tablet PO (09:50)
[2024-05-29] MEDS: tamsulosin 0.4 mg Capsule PO (09:50)
[2024-05-29] MEDS: magnesium sulfate premix 2 GM/50 ML PIGGYBACK IV (09:50)
[2024-05-29] MEDS: ALPRAZolam 0.5 mg Tablet PO (10:03)
--- NOTE | 2024-05-29 10:11 | PC.SOCIAL ---
IMM Update pg 2 of IMM updated and reviewed w/ patient. Copy provided and copy dated, initialed and placed in chart.
[2024-05-29 10:31] LABS: SARS Covid-2 Antigen negative (Negative)
[2024-05-29 12:17] LABS: Partial Thromboplastin Time 75.1 SECONDS (23.9-36.7)
--- NOTE | 2024-05-29 13:03 | P.PN_ITS ---
Subjective 2 Subjective: patient was seen this morning s/p cardiac cath, he is alert to person, to place, not time, he denies any chest pain, according to nursing staff patient has had episodes of confusion Vitals/I&O/Wt Last Vital Signs Temp 97.6 F 05/29/24 11:57 Pulse 80 05/29/24 11:57 Resp 20 H 05/29/24 11:57 BP 93/54 05/29/24 11:57 Pulse Ox 90 05/29/24 11:57 O2 Del Method Nasal Cannula 05/29/24 11:57 O2 Flow Rate 4 05/29/24 09:29 05/28/24 05/29/24 05/29/24 22:59 06:59 14:59 Intake Total 33.8 / 623.617 598.817 / 598.817 Output Total 750 / 2100 Balance -716.2 / -1476.383 598.817 / 598.817 Weight last 48 hrs Weight 93.894 kg Weight 94.483 kg Physical Exam 2 Const: COMMON NORMALS: no acute distress EXAM LIMITATIONS: altered mental status ORIENTATION/CONSCIOUSNESS: Yes awake, Yes oriented to person, Yes oriented to place and Yes confused; not oriented to time Resp: COMMON NORMALS: normal respiratory effort, No retractions, No use of accessory muscles and clear to auscultation bilaterally AUSCULTATION: clear to auscultation bilaterally Cardio: COMMON NORMALS: regular rate, regular rhythm, S1 normal heart sound present and S2 normal heart sound present RATE: regular rate RHYTHM: r egular rhythm HEART SOUNDS: S1 normal heart sound present and S2 normal heart sound present GI: COMMON NORMALS: Normal to inspection, nondistended, normoactive bowel sounds present and non-tender Extremity: COMMON NORMALS: no pedal edema Neuro: SENSORIUM/ORIENTATION: Yes oriented to person, Yes oriented to place and No oriented to time Data 05/29/24 03:58 05/29/24 03:58 A&P Assessment and plan (1) Acute encephalopathy: (2) Unresponsive episode: (3) NSTEMI (non-ST elevated myocardial infarction): (4) Coronary artery disease: (5) Acute renal failure superimposed on stage 2 chronic kidney disease: (6) Transaminitis: Plan Unresponsive episode -Concerning for cardiac etiology given positive stress test, NSTEMI -No evidence of UTI ? No evidence of focal pneumonia -He is hypertensive in the emergency room -Stroke? CT head within normal limits, no evidence of any acute bleed, no new strokes, I cannot discern any facial droop, no slurring of his words, he has spontaneous movement of upper lower extremities. -Neurochecks,., NIH stroke scale Acute encephalopathy, has episodes of confusion, ? Repeat UA NSTEMI -Stress test July 2023 ? IMPRESSIONS 1. Abnormal myocardial perfusion imaging with large sized area of prior infarct noted in left circumflex artery and RCA territories with minimal rigoberto- infarct ischemia. 2. LV systolic function severely reduced with EF of 32%. ? Plan ? No chest pain complaints ? Has complaints of shortness of breath ? Continue heparin drip ? Serial EKGs conservative once, telemetry monitoring ? Cardiac echo CONCLUSIONS Moderately reduced LV systolic function. Estimated LVEF 35 to 40%. Severe hypokinesis of inferior wall and mild hypokinesis of anterolateral wall segments. Dilated left atrium with mild mitral regurgitation. Mildly elevated pulmonary artery systolic pressure at 35 to 40 mmHg Compared to last echo report on April 2023, no significant change. ? Has received aspirin stresss test IMPRESSIONS 1. Abnormal myocardial perfusion imaging with large area of prior infarct with minimal rigoberto-infarct ischemia seen in RCA territory. 2. Medium sized area of prior infarct with large area of rigoberto-infarct ischemia seen in left circumflex artery territory. 3. LV systolic function is severely reduced. PLAN Continue heparin drip, at least 48 hours of anticoagulation, for NSTEMI ? Cardiology has been consulted -Plan on coronary angiography CHF exacerbation BnP over 7,000, complaints of shortness of breath, history of CHF, currently 3 L, -3 L so far ?Does appear fluid overloaded, 2 doses of IV Lasix -Will give 2 doses of IV Lasix today monitor urine output History of pulmonary embolism ? On Eliquis at long-term heparin drip History of CVA Type 2 diabetes mellitus, low-dose sliding scale History of CKD, Acute on chronic anemia, history of GI bleeds -Hemoglobin 9.4 -Iron, ferritin, show evidence of iron deficiency, will replace IV Venofer Is Protonix, Carafate ? Monitor hemoglobin closely as she was evidence of iron deficiency, History of COPD Elevated lactic acid, possibly associate with NSTEMI, monitor Hypomagnesemia, magnesium level 0.8 ? Received IV replacement with 1 g of mag, continue p.o. magnesium today, magnesium levels 1.6 DNR/DNI ? Heparin drip for DVT prophylaxis ? GI prophylaxis plan for today monitor encephalopathy, replace magnesium, s/p cardiac cath Attestations 2 Medical Necessity Statement*: patient requires hospitalization for nstemi Diagnoses Acute encephalopathy G93.40 Unresponsive episode R40.4 NSTEMI (non-ST elevated myocardial infarction) I21.4 Coronary artery disease I25.10 Acute renal failure superimposed on stage 2 chronic kidney disease N17.9; N18.2 Transaminitis R74.01
[2024-05-29] MEDS: ipratropium-albuterol 3 mL Neb INHALATION ×2 (13:42→20:58)
--- NOTE | 2024-05-29 14:00 | PC.NURSE ---
Sheath was pulled at 1348 without incident. No hematoma notied on pull. Sheath was bent due to patient not being compliant on keeping his leg straight.
--- NOTE | 2024-05-29 14:10 | PC.OT ---
HOLD OT EVALUATION FEMORAL CATH WAS PULLED THIS AFTERNOON
[2024-05-29] MEDS: sucralfate 1 gm/10 mL Oral Liq UDC PO (18:59)
[2024-05-29] MEDS: acyclovir 400 mg Tablet 800 MG PO ×2 (18:59→23:16)
[2024-05-29] MEDS: doxycycline 100 mg Tablet PO (19:00)
[2024-05-29] MEDS: quetiapine 25 mg Tablet 50 MG PO (19:00)
--- NOTE | 2024-05-29 19:33 | PC.NURSE ---
Patient developed blisters on back mid morning. Dr. Waterman notified and picture shown via voalte. Dr. Waterman determined patient had developed shingles. Acyclovir ordered. Patient is not complaining of any pain.
[2024-05-29] MEDS: trazodone 50 mg Tablet PO (21:29)
[2024-05-29] MEDS: atorvastatin 40 mg Tablet PO (21:29)
[2024-05-29] MEDS: apixaban 5 mg Tablet PO (21:31)
[2024-05-29 21:54] LABS: Glucose Point of Care 165 mg/dL (70-110)
[2024-05-29 21:54] LABS: Glucose Point of Care 141 mg/dL (70-110)
[2024-05-30] VITALS (11 sets, daily range): BP systolic 108–125; BP diastolic 62–68; PULSE 73–86; RESP 16–26; O2SAT 90–96; BMI 30.5
[2024-05-30] MEDS: ipratropium-albuterol 3 mL Neb INHALATION ×3 (02:06→13:56)
[2024-05-30] MEDS: haloperidol inj 5 mg/mL INJ 1 mL 1 MG IM (02:19)
--- NOTE | 2024-05-30 02:30 | PC.NURSE ---
Patient becoming impulsive; removing telemetry, getting up out of bed frequently, pulled out IV access, raising voice towards staff, removing gown. Redirected patient back into bed multiple times with bed alarm set. Education on risks for falls and redirection difficult due to confusion, patient alert to person and place only at this time. Attempts to redirect cause increased agitation. Administered PRN Haldol for agitation. Patient currently refusing IV access. Bedside table and call light within reach, bed rails up x3, bed alarm on. notified.
[2024-05-30 04:59] LABS: Basophils % 0.4 %; Eosinophils # 0.2 10^3/uL (0.0-0.8); Eosinophils % 2.5 %; Hematocrit 32.5 % (37-53); Lymphocytes # 1.1 10^3/uL (0.8-4.8); Lymphocytes % 16.3 %; Mean Corpuscular HGB Conc 26.8 g/dL (30-55); Mean Corpuscular Hemoglobin 19.3 pg (27-33); Mean Corpuscular Volume 72.2 fl (82-101); Mean Platelet Volume 10.5 fL (7.4-10.4); Monocytes # 0.5 10^3/uL (0.2-0.9); Monocytes % 7.7 %; Neutrophils # 4.89 10^3/uL (1.8-7.7); Neutrophils % 72.8 %; Nucleated Red Blood Cells % 0.6 %; Platelet Count 248 10^3/cmm (157-399); Red Cell Distribution Width 19.7 % (12.1-15.1); White Blood Count 6.73 10^3/uL (3.29-11.43)
--- NOTE | 2024-05-30 05:07 | PC.NURSE ---
Entered patient's room due to bed alarm alarming. Patient very upset that drink was not provided. Offered patient his coke which was on his bedside table and said that ain't mine. I am not drinking after somebody else. Informed patient that it was his as he is the only person in the room. Patient continues to be confused as he has for the past several days. Will continue to monitor.
[2024-05-30] MEDS: memantine 5 mg tablet 10 MG PO (05:18)
[2024-05-30] MEDS: acyclovir 400 mg Tablet 800 MG PO ×2 (05:18→10:39)
[2024-05-30] MEDS: sucralfate 1 gm/10 mL Oral Liq UDC PO (05:19)
[2024-05-30 05:24] LABS: Magnesium 1.8 mg/dL (1.7-2.3)
[2024-05-30 05:26] LABS: Alanine Aminotransferase 34 U/L (0-41); Albumin Level 2.8 g/dL (3.5-5.2); Alkaline Phosphatase 47 U/L (40-130); Aspartate Amino Transferase 17 U/L (0-40); Blood Urea Nitrogen 10 mg/dL (8-23); Calcium 7.7 mg/dL (8.5-10.5); Carbon Dioxide 25 mmol/L (22-29); Chloride 105 mmol/L (98-107); Creatinine Clr Calc Pharmacy 67.7588; Globulin 3.2 g/dL (1.3-4.6); Glucose 124 mg/dL (65-115); NT Pro B Type Natriuretic Pept 6563 pg/mL (0-450); Osmolality Calculated 294 mOsm/kg (285-295); Sodium 142 mmol/L (136-145); Total Bilirubin 1.4 mg/dL (0.15-1.2)
[2024-05-30 06:49] LABS: Glucose Point of Care 155 mg/dL (70-110)
[2024-05-30] MEDS: acetaminophen 325 mg Tablet 650 MG PO (08:09)
[2024-05-30] MEDS: aspirin 81 mg EC Tablet PO (08:23)
[2024-05-30] MEDS: magnesium lactate 84 mg Tablet PO (08:23)
[2024-05-30] MEDS: tamsulosin 0.4 mg Capsule PO (08:23)
[2024-05-30] MEDS: duloxetine 60 mg Capsule PO (08:23)
--- NOTE | 2024-05-30 08:23 | PM.PN ---
Vitals/I&O/Wt Last Vital Signs Temp 97.6 F 05/29/24 11:57 Pulse 86 05/30/24 08:01 Resp 18 05/30/24 07:50 BP 116/64 05/30/24 07:47 Pulse Ox 96 05/30/24 07:50 O2 Del Method Nasal Cannula 05/30/24 07:50 O2 Flow Rate 2.5 05/30/24 07:50 05/29/24 05/30/24 05/30/24 22:59 06:59 14:59 Intake Total 0 / 393.138 4170 / 1598.817 Output Total 750 / 750 Balance -750 / -998.107 0131 / 848.817 Weight last 48 hrs Weight 207 lb Weight 207 lb Data 05/30/24 04:19 05/30/24 04:19 Coding Level of Care Code Acute Code for Ch[facility] Fwd
[2024-05-30] MEDS: metoprolol succinate ER (24 HR) 25 mg Tablet 50 MG PO (08:24)
[2024-05-30] MEDS: levothyroxine 150 mcg Tablet PO (08:24)
[2024-05-30] MEDS: doxycycline 100 mg Tablet PO (08:25)
[2024-05-30] MEDS: BuSPIRONE 10 mg Tablet PO ×2 (08:25→15:23)
[2024-05-30] MEDS: gabapentin 300 mg Capsule PO ×2 (08:25→15:23)
[2024-05-30] MEDS: ALPRAZolam 0.5 mg Tablet PO (08:25)
[2024-05-30] MEDS: folic acid 1 mg Tablet PO (08:25)
[2024-05-30] MEDS: apixaban 5 mg Tablet PO (08:32)
[2024-05-30] MEDS: metOLazone 5 MG Tablet PO (09:39)
[2024-05-30] MEDS: potassium chloride ER 20 mEq Tablet 40 MEQ PO (09:39)
[2024-05-30] MEDS: FUROsemide 40 mg Tablet PO (10:39)
--- NOTE | 2024-05-30 11:38 | PM.DCS ---
Discharge Providers Date of Admission: 05/25/24 16:05 Date of Discharge: May 30, 2024 Attending Provider at Admission: Terry Waterman MD Attending Provider at Discharge: Terry Waterman MD Primary Care Provider: Dheeraj Rodgers MD Diagnoses at Discharge Discharge Diagnosis (1) Acute encephalopathy: Status: Acute (2) Unresponsive episode: Status: Acute (3) NSTEMI (non-ST elevated myocardial infarction): Status: Acute (4) Coronary artery disease: Status: Acute (5) Acute renal failure superimposed on stage 2 chronic kidney disease: Status: Acute (6) Transaminitis: Status: Acute Reason for Visit Reason for Visit: AMS Hospital Course Hospital Course sophia Gillette is a 79 year old male with a past medical history of ischemic cardiomyopathy EF of 40%, history of chronically occluded RCA, history of COPD, CAD, history of pulmonary embolism on Eliquis therapy, history of carotid artery disease status post carotid artery endarterectomy, history of CVA, who presents [facility] due to unresponsive episode and shortness of breath. Currently patient is alert to person, not to place, not to time, he can follow commands he moves both upper and lower extremities, no facial droop no slurring of words, pupils equal round reactive to light, he is normotensive, blood pressure 151/102, pulse is 74, he is on 3 L, does not appear to be in respiratory distress, does have mild mottling of bilateral lower extremities, DP PT pulses are diminished, cap refill greater than 2 seconds, abdomen is distended, no evidence of respiratory distress, he is only complaint currently is shortness of breath. Patient does not know why he is in the hospital, his only complaint is shortness of breath he denies any chest pain, he is quite restless currently. According to correction, spoke to [facility], patient had a fall about 2 days ago, he has not had any complaints since then, normally he ambulates with a wheelchair, he can carry conversations, he can feed himself, to 7 degrees independent, he has had some complaints of intermittent shortness of breath. According to correction, patient had breakfast this morning, was alert oriented x 3, following all commands, his normal self, and suddenly he was followed by nursing staff unresponsive. He had a pulse, he was breathing on his own, but was not responsive, he appeared hypoxic to nursing staff so he was put on oxygen. Ambulance was called due to unresponsive episode, being lethargic. Currently here in the emergency room, his CT angiogram was negative for PE, chest x-ray no focal pneumonia UA no UTI, lactic acid is elevated, initial troponin was over 500, EKG showing T wave emergency in lateral leads, no acute ST-T wave changes, spoke to ER provider, given elevated troponins, he was placed on heparin drip, I spoke to cardiology, about the case, given the unresponsive episode, elevated troponins, history of ischemic cardiomyopathy, concerns for acute cardiac event, NSTEMI Patient presented to [facility] for unresponsive episode, concerning for cardiac etiology, given his hypomagnesemia, was found to have NSTEMI, underwent stress testing which was positive, EF was 35 to 40%, coronary angiogram showed [employer] of RCA with collaterals from the left system and moderate left main disease nonSignificant on IVUS, he was monitored as inpatient, remained chest pain-free, no recurrent unresponsive episodes, discharged on his aspirin, Eliquis, statin, with close follow-up with cardiology as outpatient For his CHF exacerbation, received IV diuresis, -3 L, discharged with outpatient Lasix For his history of acute on chronic anemia, history of GI bleeds, blood work showed evidence of iron deficiency anemia, received 2 doses of IV Venofer during his hospitalization, continue to monitor hemoglobin as outpatient, discharged on Protonix and Carafate, follow-up with general surgery in 1 month for consideration of EGD Hypomagnesemia requiring IV replacement during hospitalization, discharged with p.o. potassium Physical Exam Const: COMMON NORMALS: no acute distress ORIENTATION/CONSCIOUSNESS: Yes awake, Yes oriented to person and Yes oriented to place; not oriented to time Resp: COMMON NORMALS: normal respiratory effort, No retractions, No use of accessory muscles and clear to auscultation bilaterally AUSCULTATION: clear to auscultation bilaterally Cardio: COMMON NORMALS: regular rate, regular rhythm, S1 normal heart sound present and S2 normal heart sound present RATE: regular rate RHYTHM: regular rhythm HEART SOUNDS: S1 normal heart sound present and S2 normal heart sound present GI: COMMON NORMALS: Normal to inspection, nondistended, normoactive bowel sounds present and non-tender Extremity: COMMON NORMALS: no pedal edema Neuro: SENSORIUM/ORIENTATION: Yes oriented to person, Yes oriented to place and No oriented to time Psych: COMMON NORMALS: mental status grossly normal Discharge Data Studies Completed and Pending Completed Studies During Hospitalization Category Date Time Status CT head wo con* [id number] Stat Cat Scan 05/25/24 12:[address] abdomen pelvis [CT angio chest w abd pel w Cat Scan 05/25/24 13:43 Completed con] Stat Sestamibi Stress Test Request Routine Exams 05/27/24 14:17 Draft XR chest 1V portable [id number] Routine Exams 05/28/24 11:57 Completed NM luz perf SPECT r/s* [id number] Routine Nuc Med 05/28/24 14:17 Completed CV. echo complete* [id number] Stat Ultrasound 05/25/24 16:15 Completed Pending at discharge Category Date Time Status DIRECTOR OF [employer]WORK DEPARTMENT request for service Routine Exams 05/29/24 06:00 Taken Basic Metabolic Panel AM LABS Lab 05/31/24 04:00 Ordered Blood Culture Stat Lab 05/25/24 13:06 Results Complete Blood Count w/Auto AM LABS Lab 05/31/24 04:00 Ordered Comprehensive Metabolic Panel AM LABS Lab 05/31/24 04:00 Ordered Magnesium AM LABS Lab 05/31/24 04:00 Ordered NT Pro B Type Natriuretic Pept QAM Lab 05/31/24 06:00 Ordered Occult Blood Stool [Immunochemical Fecal OCB] Routine Lab 05/26/24 15:36 Uncollected Occult Blood Stool [Immunochemical Fecal OCB] Stat Lab 05/27/24 08:45 Uncollected Radiology Impressions Head CT 05/25/24 12:52 IMPRESSION: 1. No acute intracranial abnormality 2. Chronic microvascular ischemic changes and chronic left parietal lobe infarct Chest/Abdomen/Pelvis CT 05/25/24 13:43 IMPRESSION: 1. No CT evidence of pulmonary embolus or pneumonia. 2. Emphysematous changes and scarring with decreased lung volumes. 3. Development of trace bilateral pleural effusions. 4. Qptijjfo-wo-ixoxje atherosclerotic coronary artery disease and suspected papillary muscle calcifications or less likely mitral valvular calcifications IMPRESSION: 1. No evidence of acute abdominal or pelvic inflammatory process. 2. 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 Pneumonia should be excluded clinically. Laboratory Results WBC 6.73 10^3/uL (3.29-11.43) 05/30/24 04:19 RBC 4.50 10^6/uL (3.85-5.65) 05/30/24 04:19 Hgb 8.70 g/dL (11.27-16.99) L 05/30/24 04:19 Hct 32.5 % (37-53) L 05/30/24 04:19 MCV 72.2 fl (82-101) L 05/30/24 04:19 MCH 19.3 pg (27-33) L 05/30/24 04:19 MCHC 26.8 g/dL (30-55) L 05/30/24 04:19 RDW 19.7 % (12.1-15.1) H 05/30/24 04:19 Plt Count 248 10^3/cmm (157-399) 05/30/24 04:19 MPV 10.5 fL (7.4-10.4) H 05/30/24 04:19 Neut % (Auto) 72.8 % 05/30/24 04:19 Lymph % (Auto) 16.3 % 05/30/24 04:19 [place] % (Auto) 7.7 % 05/30/24 04:19 Eos % (Auto) 2.5 % 05/30/24 04:19 Baso % (Auto) 0.4 % 05/30/24 04:19 Neut # (Auto) 4.89 10^3/uL (1.8-7.7) 05/30/24 04:19 Lymph # (Auto) 1.1 10^3/uL (0.8-4.8) 05/30/24 04:19 Pacific # (Auto) 0.5 10^3/uL (0.2-0.9) 05/30/24 04:19 Eos # (Auto) 0.2 10^3/uL (0.0-0.8) 05/30/24 04:19 Baso # (Auto) 0.0 10^3/uL (0.0-0.1) 05/30/24 04:19 Nucleated RBC % (auto) 0.6 % 05/30/24 04:19 Nucleated RBCs # 0.0 /100WBC 05/30/24 04:19 PT 19.30 SECONDS (12.1-14.9) H 05/26/24 09:02 INR 1.57 (0.8-1.2) H 05/26/24 09:02 APTT 75.1 SECONDS (23.9-36.7) H 05/29/24 11:10 Specimen Type Arterial 05/27/24 21:21 Sample Site Radial, right 05/27/24 21:21 ABG pH 7.50 (7.35-7.45) H 05/27/24 21:21 ABG pCO2 38.3 mmHg (35-45) 05/27/24 21:21 ABG pO2 61.0 mmHg (80.0-100.0) L 05/27/24 21:21 ABG PO2/FiO2 Ratio 255 05/25/24 15:48 ABG HCO3 30.0 mmol/L (22-26) H 05/27/24 21:21 ABG O2 Saturation 91.6 05/27/24 21:21 ABG Base Excess 6.4 mmol/L (-2.0-2.0) H 05/27/24 21:21 Fan Test Pos 05/27/24 21:21 A-a O2 Gradient 5.3 mmHg (5-10) 05/27/24 21:21 Hematocrit 29.6 % (42-52) L 05/27/24 21:21 Hgb O2 Saturation 89.7 % (95-100) L 05/27/24 21:21 Carboxyhemoglobin 1.5 %THgb (0.4-20.1) 05/27/24 21:21 Methemoglobin 0.6 % (0.4-1.5) 05/27/24 21:21 Total Hemoglobin 9.7 g/dL (14-18) L 05/27/24 21:21 Sodium 146.0 mmol/L (131-143) H 05/27/24 21:21 Potassium 3.7 mmol/L (3.5-5.0) 05/27/24 21:21 Glucose 134.0 mg/dL (70-115) H 05/27/24 21:21 Ionized Calcium 1.0 mmol/L (1.1-1.4) L 05/27/24 21:21 O2 Delivery Device Nc 05/27/24 21:21 O2 Liters/Min 5.0 % 05/27/24 21:21 FiO2 32.0 % 05/25/24 15:48 Clothing Patternmaker ID Tin 05/27/24 21:21 Sodium 142 mmol/L (136-145) 05/30/24 04:19 Potassium 4.0 mmol/L (3.5-5.1) 05/30/24 04:19 Chloride 105 mmol/L (98-107) 05/30/24 04:19 Carbon Dioxide 25 mmol/L (22-29) 05/30/24 04:19 Anion Gap 16.0 (5-19) 05/30/24 04:19 BUN 10 mg/dL (8-23) 05/30/24 04:19 Creatinine 1.0 mg/dL (0.7-1.2) 05/30/24 04:19 GFR Calculation Not Reportable 05/30/24 04:19 Glucose 124 mg/dL (65-115) H 05/30/24 04:19 POC Glucose 155 mg/dL (70-110) H 05/30/24 06:43 Estimat Average Glucose 148 05/25/24 13:01 Hemoglobin A1c 6.8 % (4.0-6.0) H 05/25/24 13:01 Calculated Osmolality 294 mOsm/kg (285-295) 05/30/24 04:19 Lactic Acid 2.6 mmol/L (0.5-2.2) H 05/25/24 13:01 Lactic Acid (Sepsis) 2.0 mmol/L (0.5-2.2) 05/25/24 15:43 Calcium 7.7 mg/dL (8.5-10.5) L 05/30/24 04:19 Phosphorus 2.7 mg/dL (2.5-4.5) 05/28/24 04:14 Magnesium 1.8 mg/dL (1.7-2.3) 05/30/24 04:19 Iron 10 ug/dL (59-158) L 05/25/24 14:50 TIBC 245 mcg/dl 05/25/24 14:50 % Saturation 4.0 % (20-50) L 05/25/24 14:50 Unsat Iron Binding 235 ug/dL (112-347) 05/25/24 14:50 Ferritin 24 ng/mL (30-400) L 05/25/24 14:50 Total Bilirubin 1.4 mg/dL (0.15-1.2) H 05/30/24 04:19 AST 17 U/L (0-40) 05/30/24 04:19 ALT 34 U/L (0-41) 05/30/24 04:19 Alkaline Phosphatase 47 U/L (40-130) 05/30/24 04:19 Creatine Kinase 62 U/L (39-308) 05/25/24 14:50 Troponin T Baseline 516 ng/L (0-15) H* 05/25/24 13:01 Troponin T 120 Minute 381.8 ng/L (0-15) H 05/25/24 14:50 Delta Troponin T -134.2 ABS# (0-10) L 05/25/24 14:50 Troponin T Hi Sens 6Hr 407.5 ng/L (0-15) H 05/25/24 19:29 Troponin T Hi Sens 6Hr Delta -108.5 ng/L (0-12) L 05/25/24 19:29 C-Reactive Protein 31.7 mg/L (0.0-4.9) H 05/25/24 13:01 NT-Pro-B Natriuret Pep 6563 pg/mL (0-450) H 05/30/24 04:19 Total Protein 6.0 g/dL (6.6-8.7) L 05/30/24 04:19 Albumin 2.8 g/dL (3.5-5.2) L 05/30/24 04:19 Globulin 3.2 g/dL (1.3-4.6) 05/30/24 04:19 Triglycerides 66 mg/dL (0-150) 05/25/24 14:50 Cholesterol 58 mg/dL (0-200) 05/25/24 14:50 LDL Cholesterol, Calc 14 mg/dL (50-129) L 05/25/24 14:50 HDL Cholesterol 31 mg/dL (60-100) L 05/25/24 14:50 LDL/HDL Ratio 0.45 RATIO (0.00-3.22) 05/25/24 14:50 Cholesterol/HDL Ratio 1.87 mg/dL (1.0-5.00) 05/25/24 14:50 Procalcitonin 0.09 ng/mL (0-0.5) 05/25/24 13:01 TSH 0.86 uIU/mL (0.27-4.20) 05/25/24 14:50 Urine Color Yellow (Yellow) 05/28/24 14:15 Urine Appearance Clear (CLEAR) 05/28/24 14:15 Urine pH 5 (5-7) 05/28/24 14:15 Ur Specific [place] 1.015 (1.005-1.030) 05/28/24 14:15 Urine Protein Trace (Negative) 05/28/24 14:15 Urine Glucose (UA) Norm (Normal) 05/28/24 14:15 Urine Ketones Negative (Negative) 05/28/24 14:15 Urine Blood 2+ (Negative) H 05/28/24 14:15 Urine Nitrate Negative (Negative) 05/28/24 14:15 Urine Bilirubin Neg (Negative) 05/28/24 14:15 Urine Urobilinogen Norm mg/dL (Negative) 05/28/24 14:15 Ur Leukocyte Esterase Negative (Negative) 05/28/24 14:15 Urine RBC 0-4 /hpf (0-2) H 05/28/24 14:15 Urine WBC Rare /hpf (0-5) 05/28/24 14:15 Ur Squamous Epith Cells 0-4 /hpf (0-5) H 05/28/24 14:15 Ur Transition Epith Cell 0-4 /hpf 05/28/24 14:15 Amorphous Sediment Not Reportable 05/28/24 14:15 Urine Bacteria Trace /hpf (NONE) 05/28/24 14:15 Hyaline Casts 0-4 /lpf H 05/28/24 14:15 Urine Mucus 1+ /hpf 05/28/24 14:15 SARS-CoV-2 Ag (Rapid) negative (Negative) 05/29/24 10:06 Vitals Last Vital Signs Temp 97.6 F 05/29/24 11:57 Pulse 86 05/30/24 08:01 Resp 18 05/30/24 07:50 BP 116/64 05/30/24 07:47 Pulse Ox 96 05/30/24 07:50 O2 Del Method Nasal Cannula 05/30/24 07:50 O2 Flow Rate 2.5 05/30/24 07:50 Discharge Plan Discharge Patient Disposition: Xfer [facility] Condition: Stable Prescriptions: New tamsulosin 0.4 mg Capsule 0.4 mg PO DAILY 30 Days Qty: 30 0RF sucralfate 100 mg/mL Suspension 1 g PO Q12H 30 Days Qty: 600 0RF trazodone 50 mg Tablet 50 mg PO BEDTIME 30 Days Qty: 30 0RF pantoprazole [Protonix] 40 mg tablet,delayed release (DR/EC) 40 mg PO BID 30 Days Qty: 60 0RF aspirin 81 mg Tablet,Delayed Release (Dr/Ec) 81 mg PO DAILY 30 Days Qty: 30 0RF magnesium L-lactate [Magtab] 84 mg Tablet Extended Release 84 mg PO BID 30 Days Qty: 60 0RF acyclovir 400 mg Tablet 800 mg PO Q6H 7 Days Qty: 56 0RF furosemide [Lasix] 40 mg tablet 40 mg PO DAILY 30 Days Qty: 30 0RF potassium chloride [Klor-Con M20] 20 mEq tablet,ER particles/crystals 20 meq PO DAILY 30 Days Qty: 30 0RF Continued oxycodone-acetaminophen 5-325 mg tablet 1 tab PO Q6H PRN (Reason: pain) memantine 5 mg tablet 10 mg PO QAM Eliquis 5 mg tablet 5 mg PO Q12H Qty: 60 6RF nitroglycerin 0.4 mg tablet, sublingual 0.4 mg sublingual Q5M PRN (Reason: Chest Pain) Rx Instructions: do not exceed 3 doses per episode magnesium hydroxide [Milk of Magnesia] 400 mg/5 mL Suspension 30 ml PO DAILY PRN (Reason: Constipation) Qty: 0 bisacodyl 10 mg Suppository 10 mg NV DAILY PRN (Reason: Constipation) Qty: 0 Enema 19-7 gram/118 mL Enema 118 ml NV DAILY PRN (Reason: Constipation) Qty: 0 acetaminophen 325 mg tablet 650 mg PO Q4H PRN (Reason: Mild/Mod Pain Or Temp >/= 101) buspirone 5 mg Tablet 10 mg PO TID albuterol sulfate 2.5 mg /3 mL (0.083 %) Solution For Nebulization 2.5 mg INHALATION Q4H PRN (Reason: Shortness Of Breath) levothyroxine 150 mcg Tablet 150 mcg PO DAILY colestipol 1 gram Tablet 2 g PO DAILY budesonide-formoterol [Symbicort] 160-4.5 mcg/actuation Hfa Aerosol Inhaler 2 puff INHALATION BID pantoprazole 40 mg Tablet,Delayed Release (Dr/Ec) 40 mg PO DAILY metformin 1,000 mg Tablet 1,000 mg PO BID folic acid 1 mg Tablet 1 mg PO DAILY duloxetine [Cymbalta] 60 mg Capsule,Delayed Release(Dr/Ec) 60 mg PO BID atorvastatin 20 mg tablet 20 mg PO BEDTIME cyanocobalamin (vitamin B-12) [Vitamin B-12] 1,000 mcg Tablet 1,000 mcg PO DAILY metoprolol succinate 25 mg tablet extended release 24 hr 50 mg PO DAILY Qty: 60 0RF albuterol sulfate 90 mcg/actuation HFA aerosol inhaler 2 inh inhalation Q4H PRN (Reason: shortness of breath or wheezing) Qty: 8.5 0RF alprazolam [Xanax] 0.5 mg Tablet 0.5 mg PO DAILY gabapentin 300 mg Capsule 300 mg PO TID finasteride 5 mg tablet 5 mg PO DAILY quetiapine 50 mg tablet 50 mg PO 1800 ondansetron HCl 4 mg Tablet 4 mg PO Q4H PRN (Reason: Nausea) ferrous gluconate 324 mg (36 mg iron) Tablet 324 mg PO DAILY trazodone 50 mg Tablet 50 mg PO BEDTIME prednisone 10 mg tablet 10 mg PO DAILY Culturelle 10 billion cell Capsule 1 cap PO DAILY Nicotinamide (with chromium) 500 mcg- 750 mg Tablet 2 tab PO DAILY Changed isosorbide mononitrate 30 mg tablet extended release 24 hr 15 mg PO DAILY 30 Days Qty: 30 0RF Novolog FlexPen U-100 Insulin 100 unit/mL (3 mL) Insulin Pen See Rx Instructions .ROUTE .COMPLEX Qty: 15 0RF Rx Instructions: Inject, subcut, tid, after meals, based on sliding scale Discontinued doxycycline hyclate 100 mg capsule 100 mg PO DAILY alprazolam 0.5 mg Tablet 0.5 mg PO Q4H PRN (Reason: Anxiety) Tresiba FlexTouch U-100 100 unit/mL (3 mL) Insulin Pen 26 unit SUBCUT BEDTIME Discharge Orders: Discharge Order (Routine); Ordered 05/30/24 Ordered By: Terry Waterman Referrals: [facility] [Outside] Maxwell Raymond DO [Physician] - 1 month (egd for fe deficiency anemia) Dheeraj Rodgers MD [Primary Care Provider] - 05/29/24 1:30 pm Corine Russell FNP [Nurse Practitioner] - 1 week Discharge Diet: Cardiac Discharge Activity: Resume usual activity Patient Instructions: Doxycycline (By mouth) (Acticlate, Adoxa, Avidoxy, Monodox, Doryx), Trazodone (By mouth) (Desyrel, Desyrel Dividose, Oleptro, Trazamine), Acyclovir (By mouth) (Zovirax), Aspirin (By mouth) (Amarilis Extra Strength, Amarilis Aspirin Children's,..., Tamsulosin (By mouth) (Flomax), Magnesium (By mouth) (CalMag Thins, Coral Calcium, GNC..., Heart Failure (DC), Coronary Angioplasty (DC), CHF Stoplight, Opioid Safety, Post Angiogram Home Care Instructions, Post Heart Attack Stoplight Activity Restrictions/Additional Instructions: - if you have chest pain please go to emergency room -Please take Lasix as prescribed with potassium plate replacement therapy # Follow-up with cardiology -Please monitor your blood sugars closely -Monitor your blood sugars 3 times daily as after meals -Please record your blood sugars, and a blood sugar log -For your NovoLog -Please inject blood sugar after meals based on sliding scale provided -Do not inject insulin if you do not eat as hypoglycemia kills -This is a NovoLog sliding scale -Insulin sliding ?fingerstick? Insulin ?141-180?0 units/sq 181-220?2 units/sq ?221-260?4 units/sq ?261-300 6 units/sq ?301-350?8 units/sq ?351-400 10 units/sq ?401-450?12 units/sq >450? 14units/sq -If your blood sugar is greater than 500 go to the emergency room -If your blood sugar is less than 60 or at anytime you feel lightheaded or dizzy or diaphoretic or have chest palpitations check your blood sugar, and eat a hard candy or drink orange juice and go immediately to the emergency room -Remember hypoglycemia kills, so if his blood sugar is less than 60 we have to increase it by taking in a sugary meal such as a hard candy or orange juice and go to the emergency room -If you have any questions please call us where here to help -Repeat CBC in 24 hours Discharge Attestations Time Spent in Discharge Care*: greater than 30 min Status at Discharge: Cognitive status at discharge: cognitively intact, Behavioral status at discharge: cooperative, Quality Metrics Clinical Quality Measures [ No reported AMI, CVA or VTE this stay] Coding Level of Care Code 63060 Total time (in minutes) for Discharge: 45 Diagnoses Acute encephalopathy G93.40 Unresponsive episode R40.4 NSTEMI (non-ST elevated myocardial infarction) I21.4 Coronary artery disease I25.10 Acute renal failure superimposed on stage 2 chronic kidney disease N17.9; N18.2 Transaminitis R74.01
[2024-05-30 12:31] LABS: Glucose Point of Care 124 mg/dL (70-110)
[2024-05-30] MEDS: predniSONE 20 mg Tablet 40 MG PO (13:05)
--- NOTE | 2024-05-30 14:55 | PC.NURSE ---
report called to [facility] ([facility]).
--- NOTE | 2024-05-30 15:41 | PC.NURSE ---
Patient picked up by nursing technician/ transportation attendent at 1541. Discharge paperwork given to patient to take to alf. [facility].
== END 2024-05-30 15:41 | disposition skilled nursing facility (03) | DRG 280 ==
LOC: ER 14:10 → ICU 16:23 → CSU 05-26 13:00
PROVIDERS: Internal Medicine; Admitting Provider Family Medicine; Emergency Provider Family Medicine; PCP Family Medicine; Visit Provider Family Medicine
PROC: B2111ZZ Fluoroscopy of Multiple Coronary Arteries using Low Osmolar Contrast (ICD-10-PCS; principal; 2024-05-29 07:00)
PROC: B2111ZZ Fluoroscopy of Multiple Coronary Arteries using Low Osmolar Contrast (ICD-10-PCS; 2024-05-29 07:00)
DX: I21.4 Non-ST elevation (NSTEMI) myocardial infarction (principal); I50.23 Acute on chronic systolic (congestive) heart failure; I13.0 Hypertensive heart and chronic kidney disease with heart failure and stage 1 through stage 4 chronic kidney disease, or unspecified chronic kidney disease; E87.20 Acidosis, unspecified; N17.9 Acute kidney failure, unspecified; G93.40 Encephalopathy, unspecified; I25.10 Atherosclerotic heart disease of native coronary artery without angina pectoris; Z11.52 Encounter for screening for COVID-19; E83.42 Hypomagnesemia; Z66 Do not resuscitate; I25.5 Ischemic cardiomyopathy; N18.2 Chronic kidney disease, stage 2 (mild); E11.22 Type 2 diabetes mellitus with diabetic chronic kidney disease; J44.9 Chronic obstructive pulmonary disease, unspecified; Z86.711 Personal history of pulmonary embolism; Z79.01 Long term (current) use of anticoagulants; Z86.73 Personal history of transient ischemic attack (TIA), and cerebral infarction without residual deficits; Z79.82 Long term (current) use of aspirin; Z79.84 Long term (current) use of oral hypoglycemic drugs; D50.9 Iron deficiency anemia, unspecified; E87.6 Hypokalemia; I25.2 Old myocardial infarction; R40.4 Transient alteration of awareness; D63.1 Anemia in chronic kidney disease; Z79.4 Long term (current) use of insulin; E03.9 Hypothyroidism, unspecified; Z87.891 Personal history of nicotine dependence
CPT/HCPCS: 36415; 36416; 36600; 70450; 71045; 71275; 74177; 78452; 80051; 80053; 80061; 81001; 82330; 82550; 82728; 82803; 82805; 82962; 83036; 83540; 83550; 83605; 83735; 83880; 84100; 84145; 84443; 84484; 85014; 85018; 85025; 85347; 85610; 85730; 86140; 87040; 87426; 92978; 93005; 93017; 93306; 93454; 94640; 94664; 96365; 96372; 96374; 96375; 96376; 97110; 97165; 99152; 99153; 99285; A9500; C1753; C1769; C1887; C1894; C9113; J1630; J1644; J1756; J1815; J1940; J2250; J2785; J3010; J3475; J3490; J7030; J7512; J8499; Q0163; Q9967

== ENCOUNTER → 2024-06-06 14:15 | Outpatient (BNVA) | payer MEDICARE, MEDICAID, SELFPAY | PROVIDERS: PCP Family Medicine; Visit Provider Dermatology | DX: L12.0 Bullous pemphigoid (principal) | CPT/HCPCS: 99214 ==

== ENCOUNTER 2024-06-30 12:12 | Emergency (ER) | payer MEDICARE, MEDICAID, SELFPAY ==
[2024-06-30 12:20] VITALS: BP 131/70; PULSE 88; RESP 20; TEMP 36.6; O2SAT 94; BMI 29.9
--- NOTE | 2024-06-30 12:22 | XRR_ITS ---
PROCEDURE INFORMATION: Exam: XR Chest Exam date and time: 06/30/2024 12:30 PM Age: 79 years old Clinical indication: Shortness of breath; Patient HX: SOB TECHNIQUE: Imaging protocol: Radiologic exam of the chest. Views: 1 view. COMPARISON: CR XR chest 1V portable [id number] 05/28/2024 12:20 PM FINDINGS: Lungs: Unchanged coarse interstitial lung markings compatible with underlying fibrosis. Superimposed vascular congestion/CHF is suspected given the vascular engorgement and peribronchial cuffing. No dense lobar consolidation. Pleural spaces: Unremarkable. No pleural effusion. No pneumothorax. Heart/Mediastinum: Unchanged cardiomegaly. Bones/joints: No acute abnormality. XR/XR chest 1V portable [id number] IMPRESSION: Pulmonary fibrosis with probable superimposed mild interstitial CHF.
--- NOTE | 2024-06-30 12:22 | ECG_ITS ---
[facility] Test Date: 2024-06-30 Pat Name: Agus Gillette Department: Room: Gender: Male Acid Patroller: : 1945 Requested By: Michelle Langford Order Number: [id number] Sloane MD: Miguel Coats M.D. Measurements Intervals Faxon Rate: 88 P: -14 ND: 154 QRS: 17 QRSD: 124 T: 183 QT: 381 QTc: 462 Interpretive Statements SINUS RHYTHM WITH OCCASIONAL VENTRICULAR PREMATURE COMPLEXES WITH OCCASIONAL SUPRAVENTRICULAR PREMATURE COMPLEXES PROBABLE INFERIOR MYOCARDIAL INFARCTION , PROBABLY OLD [35 ms Q WAVE IN II/aVF] MODERATE T-WAVE ABNORMALITY, CONSIDER LATERAL ISCHEMIA [-0.1+ mV T-WAVE IN I/aVL/V5/V6] Compared to ECG 05/25/2024 18:16:59 No significant changes Electronically Signed On 06-30-2024 20:07:31 CDT by Miguel Coats M.D. [id number]
--- NOTE | 2024-06-30 12:36 | ED_ITS ---
HPI - General Adult General: Chief complaint: General Medical Stated complaint: SOB Time Seen by Provider: 06/30/24 12:20 Source: patient and EMS Mode of arrival: EMS History of Present Illness: 79-year-old male who has a history of co ngestive heart failure looking through his old notes he was discharged last week on 3 L he is here from retirement he has been complaining some right sided chest pain after a fall 3 days ago states it hurts to breathe and to touch she has had some slight increasing shortness of breath he is requiring 4 L of oxygen here. Unknown if he hit his head he had a questionable seizure at retirement patient has no postictal. He is at his baseline here. Associated symptoms: Reports chest pain and dyspnea; Deny headache(s), nausea, rash or vomiting Related Data Home Medications Medication Instructions Recorded Confirmed bisacodyl 10 mg rectal suppository 10 mg TN DAILY PRN Constipation ##0 12/11/19 05/26/24 magnesium hydroxide 400 mg/5 mL 30 ml PO DAILY PRN Constipation ##0 12/11/19 05/26/24 oral suspension (Milk of Magnesia) sodium phosphates 19 gram-7 118 ml TN DAILY PRN Constipation 12/11/19 05/26/24 gram/118 mL enema (Enema) ##0 acetaminophen 325 mg tablet 650 mg PO Q4H PRN Mild/Mod Pain Or 04/23/20 05/26/24 Temp >/= 101 oxycodone-acetaminophen 5 mg-325 1 tab PO Q6H PRN pain 07/27/20 05/26/24 mg tablet albuterol sulfate 2.5 mg/3 mL 2.5 mg inhalation Q4H PRN 09/26/22 05/26/24 (0.083 %) solution for nebulization Shortness Of Breath budesonide-formoterol HFA 160 2 puff inhalation BID 09/26/22 05/26/24 mcg-4.5 mcg/actuation aerosol inhaler (Symbicort) buspirone 5 mg tablet 10 mg PO TID 09/26/22 05/26/24 colestipol 1 gram tablet 2 g PO DAILY 09/26/22 05/26/24 levothyroxine 150 mcg tablet 150 mcg PO DAILY 09/26/22 05/26/24 pantoprazole 40 mg tablet,delayed 40 mg PO DAILY 09/26/22 05/26/24 release metformin 1,000 mg tablet 1,000 mg PO BID 09/29/22 05/26/24 duloxetine 60 mg capsule,delayed 60 mg PO BID 12/18/22 05/26/24 release (Cymbalta) folic acid 1 mg tablet 1 mg PO DAILY 12/18/22 05/26/24 atorvastatin 20 mg tablet 20 mg PO BEDTIME 12/19/22 05/26/24 cyanocobalamin (vitamin B-12) 1,000 mcg PO DAILY 12/19/22 05/26/24 1,000 mcg tablet (Vitamin B-12) memantine 5 mg tablet 10 mg PO QAM 01/10/23 05/26/24 alprazolam 0.5 mg tablet (Xanax) 0.5 mg PO DAILY 02/23/23 05/26/24 finasteride 5 mg tablet 5 mg PO DAILY 02/23/23 05/26/24 gabapentin 300 mg capsule 300 mg PO TID 02/23/23 05/26/24 quetiapine 50 mg tablet 50 mg PO 1800 02/23/23 05/27/24 nitroglycerin 0.4 mg sublingual 0.4 mg sublingual Q5M PRN Chest 05/22/23 05/26/24 tablet Pain ondansetron HCl 4 mg tablet 4 mg PO Q4H PRN Nausea 07/04/23 05/26/24 Lactobacillus rhamnosus GG 10 1 cap PO DAILY 05/26/24 05/26/24 billion cell capsule (Culturelle) ferrous gluconate 324 mg (36 mg 324 mg PO DAILY 05/26/24 05/26/24 iron) tablet levomefolate 500 mcg-niacinamide 2 tab PO DAILY 05/26/24 05/26/24 750 lu-dlidim-Lb-selen-chrom tablet (Nicotinamide (with chromium)) prednisone 10 mg tablet 10 mg PO DAILY bullous pemphigoid 05/26/24 05/26/24 trazodone 50 mg tablet 50 mg PO BEDTIME 05/26/24 05/26/24 Previous Rx's Medication Instructions Recorded metoprolol succinate 25 mg 50 mg (2 x 25 mg) PO DAILY #60 tabs 12/23/22 tablet,extended release 24 hr albuterol sulfate 90 mcg/actuation 2 inh inhalation Q4H PRN shortness 06/14/23 aerosol inhaler of breath or wheezing #8.5 grams apixaban 5 mg tablet (Eliquis) 5 mg PO Q12H #60 tabs 07/25/23 insulin aspart U-100 100 unit/mL See Rx Instructions .Route 05/30/24 (3 mL) subcutaneous pen (Novolog .COMPLEX #15 mL FlexPen U-100 Insulin aspart) isosorbide mononitrate 30 mg 15 mg (1/2 x 30 mg) PO DAILY 30 05/30/24 tablet,extended release 24 hr days #30 tabs Allergies Allergy/AdvReac Type Severity Reaction Status Date / Time hydrocodone Allergy Unknown Unknown Verified 10/23/23 13:42 Penicillins Allergy Unknown Unknown Verified 10/23/23 13:42 valsartan Allergy Unknown Unknown Verified 10/23/23 13:42 simvastatin Allergy Unknown Verified 10/23/23 13:42 Review of Systems Const: Denies: fever(s), chills, body aches or change in appetite ENMT: Denies: throat pain or dental pain Card: Reports: chest pain Resp: Reports: dyspnea GI: Denies: abdominal pain, nausea, vomiting or diarrhea : Denies: dysuria Musc: Denies: neck pain or back pain Skin/Breast: Denies: rash Neuro: Denies: headache(s) PFSH ED PFSH: Medical History Exertional shortness of breath Type 2 diabetes mellitus KOKI (acute kidney injury) Acute blood loss anemia Ischemic bowel disease Small bowel obstruction Insomnia disorder Chest pain Spinal cord stimulator status Chronic kidney disease, stage II (mild) Hypothyroidism Hypertension COPD (chronic obstructive pulmonary disease) Lower back pain GI bleed Systolic congestive heart failure Last echocardiogram 12/19/2022: LVEF 35-40%, mild aortic stenosis (mean gradient 7 mmHg, EVERT 1.2 cm?) LVEF decreased from 55% in 2020. CVA (cerebral vascular accident) Pulmonary embolism Coronary artery disease Surgical History H/O cardiac catheterization H/O shoulder surgery Hx of cholecystectomy History of right-sided carotid endarterectomy History of ankle surgery Family History Denies family history of Lung disease Hypertension Social History Smoking and tobacco/nicotine status: former use of tobacco/nicotine Alcohol intake: never Substance/Drug Use: never Household members: other Details: Resident of a retirement Physical Exam Const: COMMON NORMALS: patient oriented x3 HENMT: COMMON NORMALS: normocephalic and atraumatic HEAD & SCALP: normocephalic and atraumatic Eye: COMMON NORMALS: Equal, round and reactive pupils present and EOMs intact bilaterally PUPIL: Yes Equal, round and reactive pupils present Neck/C-Spine: COMMON NORMALS: full ROM and supple Chest: COMMONS NORMALS: normal inspection of the chest OTHER: Tenderness over right chest Resp: COMMON NORMALS: No retractions and No use of accessory muscles AUSCULTATION: rales Cardio: COMMON NORMALS: regular rate, regular rhythm and No murmurs present (Cardio) RATE: regular rate RHYTHM: regular rhythm GI: COMMON NORMALS: Normal to inspection, nondistended, normoactive bowel sounds present, Soft to palpation, non-tender and no masses PALPATION: Yes Soft to palpation Extremity: COMMON NORMALS: normal to inspection and full ROM Neuro: COMMON NORMALS: patient oriented x3, moves all extremities and no focal motor deficits Psych: COMMON NORMALS: mental status grossly normal, Normal thought process present and cooperative THOUGHT PROCESS: Normal thought process present Skin: COMMON NORMALS: no rashes or lesions noted and no wounds GENERAL SKIN EXAM: no rashes or lesions noted Course Vital Signs: Vital signs: Vital Signs Temperature 97.9 F 06/30/24 12:20 Pulse Rate 91 06/30/24 12:44 Respiratory Rate 20 H 06/30/24 12:20 Blood Pressure 130/73 06/30/24 12:44 Pulse Oximetry 94 06/30/24 12:44 Oxygen Delivery Me thod Nasal Cannula 06/30/24 12:44 Oxygen Flow Rate 3 06/30/24 12:44 MDM - General Adult Medical Decision Making Patient presents here with dyspnea he is chronically on oxygen he is at his baseline here has been in no distress chest right chest wall pain from the falls x-ray is normal did scan his head of the on thinners his head CT is normal as well patient's refused IV here he does not want blood draw he states that he feels his normal self and like to go back to the retirement did give him a dose of Lasix and he is stable for discharge Medical Records I reviewed the patient's medical records. Lab Data Radiology Impressions Chest X-Ray 06/30/24 12:22 IMPRESSION: Pulmonary fibrosis with probable superimposed mild interstitial CHF. Head CT 06/30/24 12:38 IMPRESSION: No acute intracranial abnormality. Unchanged left parietal lobe encephalomalacia. Laboratory Results Specimen Type Arterial 06/30/24 12: Sample Site Radial, left 06/30/24 12:27 ABG pH 7.49 (7.35-7.45) H 06/30/24 12:27 ABG pCO2 39.1 mmHg (35-45) 06/30/24 12: ABG pO2 72.7 mmHg (80.0-100.0) L 06/30/24 12: ABG PO2/FiO2 Ratio 201 06/30/24 12:27 ABG HCO3 29.9 mmol/L (22-26) H 06/30/24 12:27 ABG Base Excess 6.2 mmol/L (-2.0-2.0) H 06/30/24 12:27 Fan Test Pos 06/30/24 12:27 Hematocrit 34.1 % (42-52) L 06/30/24 12:27 Hgb O2 Saturation 93.6 % (95-100) L 06/30/24 12:27 Carboxyhemoglobin 1.2 %THgb (0.4-20.1) 06/30/24 12:27 Methemoglobin 0.8 % (0.4-1.5) 06/30/24 12:27 Total Hemoglobin 11.1 g/dL (14-18) L 06/30/24 12:27 O2 Delivery Device Nc 06/30/24 12:27 O2 Liters/Min 4.0 % 06/30/24 12:27 FiO2 36.0 % 06/30/24 12:27 Senior Bioinformatics Specialist ID Cak 06/30/24 12:27 All radiology interpretation(s) finalized by discharge Discharge Plan Discharge Patient Disposition: Home Clinical Impression: Breath shortness Condition: Stable Prescriptions: No Action oxycodone-acetaminophen 5-325 mg tablet 1 tab PO Q6H PRN (Reason: pain) memantine 5 mg tablet 10 mg PO QAM Eliquis 5 mg tablet 5 mg PO Q12H Qty: 60 6RF nitroglycerin 0.4 mg tablet, sublingual 0.4 mg sublingual Q5M PRN (Reason: Chest Pain) Rx Instructions: do not exceed 3 doses per episode magnesium hydroxide [Milk of Magnesia] 400 mg/5 mL Suspension 30 ml PO DAILY PRN (Reason: Constipation) Qty: 0 bisacodyl 10 mg Suppository 10 mg TN DAILY PRN (Reason: Constipation) Qty: 0 Enema 19-7 gram/118 mL Enema 118 ml TN DAILY PRN (Reason: Constipation) Qty: 0 acetaminophen 325 mg tablet 650 mg PO Q4H PRN (Reason: Mild/Mod Pain Or Temp >/= 101) buspirone 5 mg Tablet 10 mg PO TID albuterol sulfate 2.5 mg /3 mL (0.083 %) Solution For Nebulization 2.5 mg INHALATION Q4H PRN (Reason: Shortness Of Breath) levothyroxine 150 mcg Tablet 150 mcg PO DAILY colestipol 1 gram Tablet 2 g PO DAILY budesonide-formoterol [Symbicort] 160-4.5 mcg/actuation Hfa Aerosol Inhaler 2 puff INHALATION BID pantoprazole 40 mg Tablet,Delayed Release (Dr/Ec) 40 mg PO DAILY metformin 1,000 mg Tablet 1,000 mg PO BID folic acid 1 mg Tablet 1 mg PO DAILY duloxetine [Cymbalta] 60 mg Capsule,Delayed Release(Dr/Ec) 60 mg PO BID atorvastatin 20 mg tablet 20 mg PO BEDTIME cyanocobalamin (vitamin B-12) [Vitamin B-12] 1,000 mcg Tablet 1,000 mcg PO DAILY metoprolol succinate 25 mg tablet extended release 24 hr 50 mg PO DAILY Qty: 60 0RF albuterol sulfate 90 mcg/actuation HFA aerosol inhaler 2 inh inhalation Q4H PRN (Reason: shortness of breath or wheezing) Qty: 8.5 0RF alprazolam [Xanax] 0.5 mg Tablet 0.5 mg PO DAILY gabapentin 300 mg Capsule 300 mg PO TID finasteride 5 mg tablet 5 mg PO DAILY quetiapine 50 mg tablet 50 mg PO 1800 ondansetron HCl 4 mg Tablet 4 mg PO Q4H PRN (Reason: Nausea) ferrous gluconate 324 mg (36 mg iron) Tablet 324 mg PO DAILY trazodone 50 mg Tablet 50 mg PO BEDTIME prednisone 10 mg tablet 10 mg PO DAILY Culturelle 10 billion cell Capsule 1 cap PO DAILY Nicotinamide (with chromium) 500 mcg- 750 mg Tablet 2 tab PO DAILY Novolog FlexPen U-100 Insulin 100 unit/mL (3 mL) Insulin Pen See Rx Instructions .ROUTE .COMPLEX Qty: 15 0RF Rx Instructions: Inject, subcut, tid, after meals, based on sliding scale isosorbide mononitrate 30 mg tablet extended release 24 hr 15 mg PO DAILY 30 Days Qty: 30 0RF Discharge Orders: Discharge ED (Routine); Ordered 06/30/24 Ordered By: Michelle Langford Referrals: Dheeraj Rodgers MD [Primary Care Provider] - Discharge Diet: Advance as tolerated Discharge Activity: Resume usual activity Patient Instructions: Shortness of Breath (ED) Coding Level of Care Code ED 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
[2024-06-30 12:38] LABS: ABG PCO2 39.1 mmHg (35-45); ABG PH Result 7.49 (7.35-7.45); Arterial Blood Gas Hematocrit 34.1 % (42-52); Base Excess ABG 6.2 mmol/L (-2.0-2.0); Blood Gas Allen Test Pos; Blood Gas Operator Identificat CAK; Blood Gas Sample Site Radial, left; Blood Gas Sample Type Arterial; Carboxyhemoglobin 1.2 %THgb (0.4-20.1); HCO3 ABG 29.9 mmol/L (22-26); HGB O2 Sat 93.6 % (95-100); Methemoglobin 0.8 % (0.4-1.5); Oxygen Device NC; PO2 ABG 72.7 mmHg (80.0-100.0); PO2 FiO2 Ratio Arterial Blood 201; Total Hemoglobin 11.1 g/dL (14-18)
--- NOTE | 2024-06-30 12:38 | CTR_ITS ---
PROCEDURE INFORMATION: Exam: CT Head Without Contrast Exam date and time: 06/30/2024 12:58 PM Age: 79 years old Clinical indication: Injury or trauma; Fall; Blunt trauma (contusions or hematomas); Without loss of consciousness; Additional info: Head injury TECHNIQUE: Imaging protocol: Computed tomography of the head without contrast. Radiation optimization: All CT scans at this facility use at least one of these dose optimization techniques: automated exposure control; mA and/or kV adjustment per patient size (includes targeted exams where dose is matched to clinical indication); or iterative reconstruction. COMPARISON: CT head wo con* [id number] 05/25/2024 1:10 PM RADIATION DOSE METRICS: Total DLP (mGy-cm): 1203.33 FINDINGS: Brain: There is unchanged left parietal lobe encephalomalacia. There is volume loss and periventricular low density compatible with chronic small vessel disease changes. There is no acute intracranial hemorrhage, edema or mass effect. There are small bifrontal benign hygromas. Cerebral ventricles: No ventriculomegaly. Paranasal sinuses: Visualized sinuses are unremarkable. No fluid levels. Mastoid air cells: Visualized mastoid air cells are well aerated. Bones: Unremarkable. No acute fracture. Soft tissues: Unremarkable. CT/CT head wo con* [id number] IMPRESSION: No acute intracranial abnormality. Unchanged left parietal lobe encephalomalacia.
[2024-06-30 12:44] VITALS: BP 130/73; PULSE 91; O2SAT 94
[2024-06-30 15:48] LABS: Basophils % 0.1 %; Eosinophils % 0.5 %; Hematocrit 41.3 % (37-53); Lymphocytes # 0.6 10^3/uL (0.8-4.8); Lymphocytes % 6.9 %; Mean Corpuscular HGB Conc 28.8 g/dL (30-55); Mean Corpuscular Hemoglobin 22.4 pg (27-33); Mean Corpuscular Volume 77.6 fl (82-101); Mean Platelet Volume 10.3 fL (7.4-10.4); Monocytes # 0.2 10^3/uL (0.2-0.9); Monocytes % 2.4 %; Neutrophils # 7.38 10^3/uL (1.8-7.7); Neutrophils % 89.6 %; Nucleated Red Blood Cells % 0 %; Platelet Count 204 10^3/cmm (157-399); Red Blood Count 5.32 10^6/uL (3.85-5.65); Red Cell Distribution Width 26.5 % (12.1-15.1); White Blood Count 8.24 10^3/uL (3.29-11.43)
[2024-06-30] MEDS: FUROsemide 40 mg Tablet PO (15:48)
--- NOTE | 2024-06-30 15:48 | PC.NURSE ---
PATIENT REFUSED VITALS AND CONTINUED TO PULL WIRES AND CORDS OFF OF HIM INCLUDING HIS O2. PATIENT REFUSED TO SIGN DC PAPERWORK. PATIENT STATED HE DID NOT WANT STAFF TO HELP HIM AND THAT HE WANTED TO GO HOME AND GO TO SLEEP AND BE LEFT ALONE. PHYSICIAN AND NURSES INCLUDING CHARGE NURSE ATTEMPTED TO EXPLAIN TO PATIENT. PATIENT CONTINUED TO SAY THAT STAFF HAVE LEFT HIM IN THE ROOM. STAFF MEMBERS WENT INTO ROOM TO ASSIST PATIENT. PATIENTS RIDE BACK TO [place] ARRIVED AND PATIENT REQUESTED TO GO HOME INSTEAD OF STAY AGAINST DAUGHTER'S WISHES. PATIENT WAS PLACED WITH [place] TRANSPORT STAFF AND TRANSPORTED BACK TO [place].
[2024-06-30 15:55] VITALS: BP 130/73; PULSE 91; RESP 20; TEMP 36.6; O2SAT 94
[2024-06-30 16:15] LABS: Alanine Aminotransferase 18 U/L (0-41); Albumin Level 3.5 g/dL (3.5-5.2); Alkaline Phosphatase 61 U/L (40-130); Anion Gap 24.6 (5-19); Aspartate Amino Transferase 17 U/L (0-40); Blood Urea Nitrogen 16 mg/dL (8-23); Calcium 8.6 mg/dL (8.5-10.5); Carbon Dioxide 22 mmol/L (22-29); Chloride 97 mmol/L (98-107); Creatinine Clr Calc Pharmacy 57.6961; Globulin 3.8 g/dL (1.3-4.6); Glucose 252 mg/dL (65-115); NT Pro B Type Natriuretic Pept 9982 pg/mL (0-450); Osmolality Calculated 300 mOsm/kg (285-295); Potassium 3.6 mmol/L (3.5-5.1); Sodium 140 mmol/L (136-145); Total Bilirubin 1.2 mg/dL (0.15-1.2); Total Protein 7.3 g/dL (6.6-8.7)
== END 2024-06-30 15:57 | disposition home or self-care (01) ==
PROVIDERS: Emergency Provider Emergency Medicine; PCP Family Medicine
DX: R06.02 Shortness of breath (principal); Z79.01 Long term (current) use of anticoagulants; Z79.84 Long term (current) use of oral hypoglycemic drugs; Z79.4 Long term (current) use of insulin; Z87.891 Personal history of nicotine dependence; E11.22 Type 2 diabetes mellitus with diabetic chronic kidney disease; I13.0 Hypertensive heart and chronic kidney disease with heart failure and stage 1 through stage 4 chronic kidney disease, or unspecified chronic kidney disease; N18.2 Chronic kidney disease, stage 2 (mild); I50.20 Unspecified systolic (congestive) heart failure; J44.9 Chronic obstructive pulmonary disease, unspecified; I25.10 Atherosclerotic heart disease of native coronary artery without angina pectoris
CPT/HCPCS: 36415; 36600; 70450; 71045; 80053; 82805; 83880; 85025; 93005; 99285

== ENCOUNTER → 2024-07-11 14:37 | Outpatient (BNVA) | payer MEDICARE, MEDICAID, SELFPAY | PROVIDERS: PCP Family Medicine; Visit Provider Dermatology | DX: L72.0 Epidermal cyst (principal) | CPT/HCPCS: 99214 ==

== ENCOUNTER 2024-09-01 07:50 | Inpatient (IN) | payer MEDICARE, MEDICAID, SELFPAY ==
[2024-09-01] VITALS (11 sets, daily range): BP systolic 84–127; BP diastolic 49–65; PULSE 81–92; RESP 17–24; TEMP 36.5; O2SAT 86–100; BMI 27.5; BMI 27.3
--- NOTE | 2024-09-01 07:53 | CTR_ITS ---
PROCEDURE INFORMATION: Exam: CT Head Without Contrast Exam date and time: 09/01/2024 8:36 AM Age: 79 years old Clinical indication: Altered mental status/memory loss; Confusion or disorientation; Additional info: AMS TECHNIQUE: Imaging protocol: Computed tomography of the head without contrast. Radiation optimization: All CT scans at this facility use at least one of these dose optimization techniques: automated exposure control; mA and/or kV adjustment per patient size (includes targeted exams where dose is matched to clinical indication); or iterative reconstruction. COMPARISON: CT head wo con* [id number] 06/30/2024 12:58 PM RADIATION DOSE METRICS: Total DLP (mGy-cm): 1183.21 FINDINGS: Brain: There is an old left parietal/temporal infarct with associated encephalomalacia. There is new focal loss of knight-white differentiation in the left frontoparietal region suspicious for acute infarct. No mass, mass effect or midline shift. No acute intracranial hemorrhage. There is mild patchy subcortical and periventricular hypodensity, most commonly associated with small vessel ischemic disease of indeterminate age. The posterior fossa is grossly unremarkable; however, it is partially obscurred by beam hardening artifact. Cerebral ventricles: The ventricles are prominent, compatible with mild parenchymal volume loss. Paranasal sinuses: The visualized paranasal sinuses are clear. Mastoid air cells: No mastoid effusion. Orbital cavities: The visualized orbits are unremarkable. Bones: No acute fracture is seen. Soft tissues: No significant scalp soft tissue swelling. Vasculature: A tiny focus of gas in the right cavernous sinus that likely relates to trace injected gas. CT/CT head wo con* [id number] IMPRESSION: 1. New focal loss of knight-white differentiation in the left frontoparietal region suspicious for acute infarct. Recommend MRI to further assess. 2. Mild senescent changes as above. 3. No acute intracranial hemorrhage.
--- NOTE | 2024-09-01 07:53 | XRR_ITS ---
PROCEDURE INFORMATION: Exam: XR Chest Exam date and time: 09/01/2024 8:01 AM Age: 79 years old Clinical indication: Other: AMS TECHNIQUE: Imaging protocol: Radiologic exam of the chest. Views: 1 view. COMPARISON: CR XR chest 1V portable [id number] 06/30/2024 12:30 PM FINDINGS: Tubes, catheters and devices: A spinal stimulator lead is seen. Lungs: There are peripheral hazy opacities in the right chest that appear similar to prior. Worsening hazy opacities throughout the left chest. Pleural spaces: No pleural effusion. No pneumothorax. Heart/Mediastinum: The cardiac silhouette is proximally unchanged given low lung volumes. No gross evidence of pneumomediastinum. Bones/joints: No gross fracture. XR/XR chest 1V portable [id number] IMPRESSION: Peripheral hazy opacities in the right chest that appear similar to prior. Worsening hazy opacities throughout the left chest. Consider CT to better characterize. Findings discussed with HUMPHREY MORRIS at 09/01/2024 9:09 AM CDT.
--- NOTE | 2024-09-01 07:54 | ECG_ITS ---
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1945 Requested By: Michelle Langford Order Number: [id number] Reading MD: JACINTO RAMIREZ Measurements Intervals [place] Rate: 79 P: 3 UT: 172 QRS: 21 QRSD: 116 T: 154 QT: 411 QTc: 474 Interpretive Statements SINUS RHYTHM WITH OCCASIONAL VENTRICULAR PREMATURE COMPLEXES WITH FREQUENT SUPRAVENTRICULAR PREMATURE COMPLEXES INFERIOR MYOCARDIAL INFARCTION , PROBABLY OLD [40+ ms Q WAVE AND/OR ST/T ABNORMALITY IN II/aVF] MODERATE T-WAVE ABNORMALITY, CONSIDER LATERAL ISCHEMIA [-0.1+ mV T-WAVE IN I/aVL/V5/V6] Compared to ECG 06/30/2024 12:42:40 No significant changes Electronically Signed On 09-03-2024 21:04:07 CDT by JACINTO RAMIREZ [email or web address]
--- NOTE | 2024-09-01 08:07 | ED_ITS ---
HPI - General Adult 2 General: Chief complaint: Neuro Symptoms/Deficit Stated complaint: AMS Time Seen by Provider: 09/01/24 07:51 Source: EMS Mode of arrival: EMS Limitations: altered mental status History of Present Illness: 79-year-old male who is here from [facility] home per EMS patient has been altered the last few days patient here is awake but does not follow any commands not able to give any history he is also had hypotension. No known recent illness. Related Data Home Medications Medication Instructions Recorded Confirmed bisacodyl 10 mg rectal suppository 10 mg VT DAILY PRN Constipation ##0 12/11/19 05/26/24 magnesium hydroxide 400 mg/5 mL 30 ml PO DAILY PRN Constipation ##0 12/11/19 05/26/24 oral suspension (Milk of Magnesia) sodium phosphates 19 gram-7 118 ml VT DAILY PRN Constipation 12/11/19 05/26/24 gram/118 mL enema (Enema) ##0 acetaminophen 325 mg tablet 650 mg PO Q4H PRN Mild/Mod Pain Or 04/23/20 05/26/24 Temp >/= 101 oxycodone-acetaminophen 5 mg-325 1 tab PO Q6H PRN pain 07/27/20 05/26/24 mg tablet albuterol sulfate 2.5 mg/3 mL 2.5 mg inhalation Q4H PRN 09/26/22 05/26/24 (0.083 %) solution for nebulization Shortness Of Breath budesonide-formoterol HFA 160 2 puff inhalation BID 09/26/22 05/26/24 mcg-4.5 mcg/actuation aerosol inhaler (Symbicort) buspirone 5 mg tablet 10 mg PO TID 09/26/22 05/26/24 colestipol 1 gram tablet 2 g PO DAILY 09/26/22 05/26/24 levothyroxine 150 mcg tablet 150 mcg PO DAILY 09/26/22 05/26/24 pantoprazole 40 mg tablet,delayed 40 mg PO DAILY 09/26/22 05/26/24 release metformin 1,000 mg tablet 1,000 mg PO BID 09/29/22 05/26/24 duloxetine 60 mg capsule,delayed 60 mg PO BID 12/18/22 05/26/24 release (Cymbalta) folic acid 1 mg tablet 1 mg PO DAILY 12/18/22 05/26/24 atorvastatin 20 mg tablet 20 mg PO BEDTIME 12/19/22 05/26/24 cyanocobalamin (vitamin B-12) 1,000 mcg PO DAILY 12/19/22 05/26/24 1,000 mcg tablet (Vitamin B-12) memantine 5 mg tablet 10 mg PO QAM 01/10/23 05/26/24 alprazolam 0.5 mg tablet (Xanax) 0.5 mg PO DAILY 02/23/23 05/26/24 finasteride 5 mg tablet 5 mg PO DAILY 02/23/23 05/26/24 gabapentin 300 mg capsule 300 mg PO TID 02/23/23 05/26/24 quetiapine 50 mg tablet 50 mg PO 1800 02/23/23 05/27/24 nitroglycerin 0.4 mg sublingual 0.4 mg sublingual Q5M PRN Chest 05/22/23 05/26/24 tablet Pain ondansetron HCl 4 mg tablet 4 mg PO Q4H PRN Nausea 07/04/23 05/26/24 Lactobacillus rhamnosus GG 10 1 cap PO DAILY 05/26/24 05/26/24 billion cell capsule (Culturelle) ferrous gluconate 324 mg (36 mg 324 mg PO DAILY 05/26/24 05/26/24 iron) tablet levomefolate 500 mcg-niacinamide 2 tab PO DAILY 05/26/24 05/26/24 750 sd-dzpyan-Df-selen-chrom tablet (Nicotinamide (with chromium)) prednisone 10 mg tablet 10 mg PO DAILY bullous pemphigoid 05/26/24 05/26/24 trazodone 50 mg tablet 50 mg PO BEDTIME 05/26/24 05/26/24 Previous Rx's Medication Instructions Recorded metoprolol succinate 25 mg 50 mg (2 x 25 mg) PO DAILY #60 tabs 12/23/22 tablet,extended release 24 hr albuterol sulfate 90 mcg/actuation 2 inh inhalation Q4H PRN shortness 06/14/23 aerosol inhaler of breath or wheezing #8.5 grams apixaban 5 mg tablet (Eliquis) 5 mg PO Q12H #60 tabs 07/25/23 insulin aspart U-100 100 unit/mL See Rx Instructions .Route 05/30/24 (3 mL) subcutaneous pen (Novolog .COMPLEX #15 mL FlexPen U-100 Insulin aspart) isosorbide mononitrate 30 mg 15 mg (1/2 x 30 mg) PO DAILY 05/30/24 tablet,extended release 24 hr days #30 tabs Allergies Allergy/AdvReac Type Severity Reaction Status Date / Time hydrocodone Allergy Unknown Unknown Verified 10/23/23 13:42 Penicillins Allergy Unknown Unknown Verified 10/23/23 13:42 valsartan Allergy Unknown Unknown Verified 10/23/23 13:42 simvastatin Allergy Unknown Verified 10/23/23 13:42 Review of Systems 2 General: Reports: ROS unobtainable due to mental status PFSH ED 2 PFSH: Medical History Exertional shortness of breath Type 2 diabetes mellitus KOKI (acute kidney injury) Acute blood loss anemia Ischemic bowel disease Small bowel obstruction Insomnia disorder Chest pain Spinal cord stimulator status Chronic kidney disease, stage II (mild) Hypothyroidism Hypertension COPD (chronic obstructive pulmonary disease) Lower back pain GI bleed Systolic congestive heart failure Last echocardiogram 12/19/2022: LVEF 35-40%, mild aortic stenosis (mean gradient 7 mmHg, EVERT 1.2 cm?) LVEF decreased from 55% in 2020. CVA (cerebral vascular accident) Pulmonary embolism Coronary artery disease Surgical History H/O cardiac catheterization H/O shoulder surgery Hx of cholecystectomy History of right-sided carotid endarterectomy History of ankle surgery Family History Denies family history of Lung disease Hypertension Social History Smoking and tobacco/nicotine status: former use of tobacco/nicotine Alcohol intake: never Substance/Drug Use: never Household members: other Details: Resident of a long term Physical Exam 2 Const: COMMON NORMALS: negative for patient oriented x3 GENERAL APPEARANCE: ill appearing HENMT: COMMON NORMALS: normocephalic and atraumatic HEAD & SCALP: n ormocephalic and atraumatic Eye: COMMON NORMALS: Equal, round and reactive pupils present and EOMs intact bilaterally PUPIL: Yes Equal, round and reactive pupils present Neck/C-Spine: COMMON NORMALS: full ROM and supple Chest: COMMONS NORMALS: normal inspection of the chest Resp: COMMON NORMALS: normal respiratory effort, No retractions, No use of accessory muscles and clear to auscultation bilaterally AUSCULTATION: clear to auscultation bilaterally Cardio: COMMON NORMALS: regular rate, regular rhythm and No murmurs present (Cardio) RATE: regular rate RHYTHM: regular rhythm GI: COMMON NORMALS: Normal to inspection, nondistended, normoactive bowel sounds present, Soft to palpation, non-tender and no masses PALPATION: Yes Soft to palpation Extremity: COMMON NORMALS: normal to inspection and full ROM Neuro: COMMON NORMALS: negative for patient oriented x3 Psych: COMMON NORMALS: negative for mental status grossly normal Skin: COMMON NORMALS: no rashes or lesions noted and no wounds GENERAL SKIN EXAM: no rashes or lesions noted Course 2 Vital Signs: Vital signs: Vital Signs Temperature 97.7 F 09/01/24 07:56 Pulse Rate 88 09/01/24 09:40 Respiratory Rate 23 H 09/01/24 09:40 Blood Pressure 114/59 09/01/24 09:40 Pulse Oximetry 86 L 09/01/24 09:40 Oxygen Delivery Me thod Nasal Cannula 09/01/24 07:56 Oxygen Flow Rate 3 09/01/24 07:[address] [facility] - General Adult Medical Decision Making Patient presents with altered mental status been going on for few days patient also has some hypertension is improved with fluids here he does have dehydration acute kidney injury likely because of this low blood pressure he is given antibiotics along with fluids. Head CT does show a likely stroke. Did not give him full sepsis bolus as he has CHF did not want to fluid overload him. His pressure has improved here. Medical Records I reviewed the patient's medical records. Lab Data I reviewed the patient's lab results. 09/01/24 08:11 09/01/24 08:11 Radiology Impressions Chest X-Ray 09/01/24 07:53 IMPRESSION: Peripheral hazy opacities in the right chest that appear similar to prior. Worsening hazy opacities throughout the left chest. Consider CT to better characterize. Findings discussed with HUMPHREY MORRIS at 09/01/2024 9:[address] 09/01/24 07:53 IMPRESSION: 1. New focal loss of knight-white differentiation in the left frontoparietal region suspicious for acute infarct. Recommend MRI to further assess. 2. Mild senescent changes as above. 3. No acute intracranial hemorrhage. ADDENDUM: 09/01/24909 Findings discussed with HUMPHREY MORRIS at 09/01/2024 9:09 AM CDT. Laboratory Results WBC 10.22 10^3/uL (3.29-11.43) 09/01/24 08:11 RBC 4.36 10^6/uL (3.85-5.65) 09/01/24 08:11 Hgb 10.60 g/dL (11.27-16.99) L 09/01/24 08:11 Hct 37.9 % (37-53) 09/01/24 08:11 MCV 86.9 fl (82-101) 09/01/24 08:11 MCH 24.3 pg (27-33) L 09/01/24 08:11 MCHC 28.0 g/dL (30-55) L 09/01/24 08:11 RDW 20.5 % (12.1-15.1) H 09/01/24 08:11 Plt Count 360 10^3/cmm (157-399) 09/01/24 08:11 MPV 10.0 fL (7.4-10.4) 09/01/24 08:11 Neut % (Auto) 74.6 % 09/01/24 08:11 Lymph % (Auto) 13.3 % 09/01/24 08:11 [place] % (Auto) 11.1 % 09/01/24 08:11 Eos % (Auto) 0.1 % 09/01/24 08:11 Baso % (Auto) 0.5 % 09/01/24 08:11 Neut # (Auto) 7.63 10^3/uL (1.8-7.7) 09/01/24 08:11 Lymph # (Auto) 1.4 10^3/uL (0.8-4.8) 09/01/24 08:11 [place] # (Auto) 1.1 10^3/uL (0.2-0.9) H 09/01/24 08:11 Eos # (Auto) 0.0 10^3/uL (0.0-0.8) 09/01/24 08:11 Baso # (Auto) 0.1 10^3/uL (0.0-0.1) 09/01/24 08:11 Nucleated RBC % (auto) 0.9 % 09/01/24 08:11 Nucleated RBCs # 0.1 /100WBC 09/01/24 08:11 PT 20.80 SECONDS (12.1-14.9) H 09/01/24 08:11 INR 1.72 (0.8-1.2) H 09/01/24 08:11 Specimen Type Arterial 09/01/24 08:12 Sample Site Radial, right 09/01/24 08:12 ABG pH 7.34 (7.35-7.45) L 09/01/24 08:12 ABG pCO2 35.1 mmHg (35-45) 09/01/24 08:12 ABG pO2 52.4 mmHg (80.0-100.0) L 09/01/24 08:12 ABG HCO3 18.9 mmol/L (22-26) L 09/01/24 08:12 ABG Base Excess -6.2 mmol/L (-2.0-2.0) L 09/01/24 08:12 Fan Test Pos 09/01/24 08:12 Hematocrit 31.8 % (42-52) L 09/01/24 08:12 Hgb O2 Saturation 79.0 % (95-100) L 09/01/24 08:12 Carboxyhemoglobin 1.8 %THgb (0.4-20.1) 09/01/24 08:12 Methemoglobin 1.6 % (0.4-1.5) H 09/01/24 08:12 Total Hemoglobin 10.4 g/dL (14-18) L 09/01/24 08:12 O2 Delivery Device Nc 09/01/24 08:12 O2 Liters/Min 4.0 % 09/01/24 08:12 Lift Slab Operator ID Thalia 09/01/24 08:12 Sodium 138 mmol/L (136-145) 09/01/24 08:11 Potassium 5.2 mmol/L (3.5-5.1) H 09/01/24 08:11 Chloride 104 mmol/L (98-107) 09/01/24 08:11 Carbon Dioxide 16 mmol/L (22-29) L 09/01/24 08:11 Anion Gap 23.2 (5-19) H 09/01/24 08:11 BUN 25 mg/dL (8-23) H 09/01/24 08:11 Creatinine 2.4 mg/dL (0.7-1.2) H 09/01/24 08:11 GFR Calculation Not Reportable 09/01/24 08:11 Glucose 157 mg/dL (65-115) H 09/01/24 08:11 POC Glucose 157 mg/dL (70-110) H 09/01/24 08:58 Calculated Osmolality 294 mOsm/kg (285-295) 09/01/24 08:11 Lactic Acid 3.7 mmol/L (0.5-2.2) H 09/01/24 08:11 Calcium 8.3 mg/dL (8.5-10.5) L 09/01/24 08:11 Magnesium 2.1 mg/dL (1.7-2.3) 09/01/24 08:11 Total Bilirubin 1.2 mg/dL (0.15-1.2) 09/01/24 08:11 AST 758 U/L (0-40) H 09/01/24 08:11 ALT 254 U/L (0-41) H 09/01/24 08:11 Alkaline Phosphatase 137 U/L (40-130) H 09/01/24 08:11 Ammonia 32 umol/L (16-60) 09/01/24 08:11 Total Protein 6.6 g/dL (6.6-8.7) 09/01/24 08:11 Albumin 3.1 g/dL (3.5-5.2) L 09/01/24 08:11 Globulin 3.5 g/dL (1.3-4.6) 09/01/24 08:11 TSH 0.61 uIU/mL (0.27-4.20) 09/01/24 08:11 All radiology interpretation(s) finalized by discharge Critical Care Time 2 Critical Care Time: Critical Care Time: Yes Total Critical Care Time: 45 Attestation: The high probability of a clinically significant, sudden or life threatening deterioration of the patient's neuro system(s) required my full and direct attention, intervention and personal management. The critical care time is as shown. This time is in addition to time spent performing any reported procedures but includes the following: [x] Data and vital sign review and interpretation [x] Patient assessment, examination and intervention [x] Documentation [x] Medication orders and management Discharge Plan Discharge Patient Disposition: Admitted As Inpatient Admit Provider: Ace Harris Clinical Impression: Altered mental status, Cerebrovascular accident, Acute kidney injury Condition: Stable Coding Level of Care Code ED Rubble Placer for Deg Diannd NIH stroke score NIHSS Level Of Consciousness - 1a: 0 Level Of Consciousness Questions - 1b: Neither Correct Level Of Consciousness Commands - 1c: Neither Correct Best Gaze - 2: Normal Visual Lakhani - 3: No Visual Loss Facial Palsy - 4: Normal Motor Arm Right - 5: Drift Motor Arm Left - 5: Drift Motor Leg Right - 6: Drift Motor Leg Left - 6: Drift Limb Ataxia - 7: Absent Sensory - 8: Normal Best Language - 9: No Aphasia Dysarthia - 10: Normal Extinction And Inattention - 11: 0 Score Total Score: 8
[2024-09-01 08:18] LABS: Basophils # 0.1 10^3/uL (0.0-0.1); Basophils % 0.5 %; Eosinophils % 0.1 %; Hematocrit 37.9 % (37-53); Lymphocytes # 1.4 10^3/uL (0.8-4.8); Lymphocytes % 13.3 %; Mean Corpuscular Hemoglobin 24.3 pg (27-33); Mean Corpuscular Volume 86.9 fl (82-101); Monocytes # 1.1 10^3/uL (0.2-0.9); Monocytes % 11.1 %; Neutrophils # 7.63 10^3/uL (1.8-7.7); Neutrophils % 74.6 %; Nucleated Red Blood Cells # 0.1 /100WBC; Nucleated Red Blood Cells % 0.9 %; Platelet Count 360 10^3/cmm (157-399); Red Blood Count 4.36 10^6/uL (3.85-5.65); Red Cell Distribution Width 20.5 % (12.1-15.1); White Blood Count 10.22 10^3/uL (3.29-11.43)
[2024-09-01 08:23] LABS: ABG PCO2 35.1 mmHg (35-45); ABG PH Result 7.34 (7.35-7.45); Arterial Blood Gas Hematocrit 31.8 % (42-52); Base Excess ABG -6.2 mmol/L (-2.0-2.0); Blood Gas Allen Test Pos; Blood Gas Operator Identificat WALCI; Blood Gas Sample Site Radial, right; Blood Gas Sample Type Arterial; Carboxyhemoglobin 1.8 %THgb (0.4-20.1); HCO3 ABG 18.9 mmol/L (22-26); Methemoglobin 1.6 % (0.4-1.5); Oxygen Device NC; PO2 ABG 52.4 mmHg (80.0-100.0); Total Hemoglobin 10.4 g/dL (14-18)
[2024-09-01] MEDS: sodium chloride 0.9% 1,000 ML 999 ML IV ×2 (08:23→10:22)
[2024-09-01 08:32] LABS: INR 1.72 (0.8-1.2)
[2024-09-01 08:35] LABS: Lactic Sepsis W/Reflex 3.7 mmol/L (0.5-2.2)
[2024-09-01 08:49] LABS: Ammonia 32 umol/L (16-60)
[2024-09-01 08:51] LABS: Alanine Aminotransferase 254 U/L (0-41); Albumin Level 3.1 g/dL (3.5-5.2); Alkaline Phosphatase 137 U/L (40-130); Anion Gap 23.2 (5-19); Blood Urea Nitrogen 25 mg/dL (8-23); Calcium 8.3 mg/dL (8.5-10.5); Carbon Dioxide 16 mmol/L (22-29); Chloride 104 mmol/L (98-107); Creatinine Clr Calc Pharmacy 27.7592; Globulin 3.5 g/dL (1.3-4.6); Glucose 157 mg/dL (65-115); Magnesium 2.1 mg/dL (1.7-2.3); Osmolality Calculated 294 mOsm/kg (285-295); Potassium 5.2 mmol/L (3.5-5.1); Sodium 138 mmol/L (136-145); Thyroid Stimulating Hormone 0.61 uIU/mL (0.27-4.20); Total Bilirubin 1.2 mg/dL (0.15-1.2); Total Protein 6.6 g/dL (6.6-8.7)
[2024-09-01 09:01] LABS: Aspartate Amino Transferase 758 U/L (0-40)
--- NOTE | 2024-09-01 09:17 | P.HP_ITS ---
Providers/Chief Complaint 2 Primary Care Provider: Dheeraj Rodgers MD Chief Complaint: AMS History of Present Illness Agus Gillette is a 79 year old male presented from the facility with chief complaint of not been able to talk. Patient not able provide any history, we called his daughter, as per the daughter she checks on him on daily basis and talk over the phone for last 1 week he has been more confused was not able to express himself and choose appropriate words. We reviewed his records, patient is DNR/DNI this was confirmed with his daughter as well. I did ask them about feeding tube if needed daughter wants to wait until speech therapy evaluation. Patient is able to raise his hand and shaking the hand however not able to completely follow verbal commands at this point, he was dehydrated, hypotensive with high lactic acid he was given multiple fluid boluses, x-ray shows signs of aspiration pneumonia. 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%, COPD, PE takes Eliquis, uses 3 L of oxygen at baseline recently had coronary angiogram for non-STEMI, he also has history of GI bleed iron deficiency anemia, Review of Systems 2 General: Reports: ROS unobtainable due to medical condition Medications/Allergies Home Medications Medication Instructions Recorded Confirmed Last Taken Type bisacodyl 10 mg rectal suppository 10 mg SD DAILY PRN Constipation ##0 12/11/19 05/26/24 Unknown History magnesium hydroxide 400 mg/5 mL 30 ml PO DAILY PRN Constipation ##0 12/11/19 05/26/24 Unknown History oral suspension (Milk of Magnesia) sodium phosphates 19 gram-7 118 ml SD DAILY PRN Constipation 12/11/19 05/26/24 Unknown History gram/118 mL enema (Enema) ##0 acetaminophen 325 mg tablet 650 mg PO Q4H PRN Mild/Mod Pain Or 04/23/20 05/26/24 Unknown History Temp >/= 101 oxycodone-acetaminophen 5 mg-325 1 tab PO Q6H PRN pain 07/27/20 05/26/24 09/29/22 History mg tablet albuterol sulfate 2.5 mg/3 mL 2.5 mg inhalation Q4H PRN 09/26/22 05/26/24 Unknown History (0.083 %) solution for nebulization Shortness Of Breath budesonide-formoterol HFA 160 2 puff inhalation BID 09/26/22 05/26/24 02/23/23 History mcg-4.5 mcg/actuation aerosol inhaler (Symbicort) buspirone 5 mg tablet 10 mg PO TID 09/26/22 05/26/24 02/23/23 History colestipol 1 gram tablet 2 g PO DAILY 09/26/22 05/26/24 02/23/23 History levothyroxine 150 mcg tablet 150 mcg PO DAILY 09/26/22 05/26/24 02/23/23 History pantoprazole 40 mg tablet,delayed 40 mg PO DAILY 09/26/22 05/26/24 02/23/23 History release metformin 1,000 mg tablet 1,000 mg PO BID 09/29/22 05/26/24 02/23/23 History duloxetine 60 mg capsule,delayed 60 mg PO BID 12/18/22 05/26/24 02/23/23 History release (Cymbalta) folic acid 1 mg tablet 1 mg PO DAILY 12/18/22 05/26/24 02/23/23 History atorvastatin 20 mg tablet 20 mg PO BEDTIME 12/19/22 05/26/24 02/22/23 History cyanocobalamin (vitamin B-12) 1,000 mcg PO DAILY 12/19/22 05/26/24 02/23/23 History 1,000 mcg tablet (Vitamin B-12) metoprolol succinate 25 mg 50 mg (2 x 25 mg) PO DAILY #60 tabs 12/23/22 05/26/24 02/23/23 Rx tablet,extended release 24 hr memantine 5 mg tablet 10 mg PO QAM 01/10/23 05/26/24 02/23/23 History alprazolam 0.5 mg tablet (Xanax) 0.5 mg PO DAILY 02/23/23 05/26/24 02/22/23 History finasteride 5 mg tablet 5 mg PO DAILY 02/23/23 05/26/24 02/23/23 History gabapentin 300 mg capsule 300 mg PO TID 02/23/23 05/26/24 02/23/23 History quetiapine 50 mg tablet 50 mg PO 1800 02/23/23 05/27/24 02/22/23 History nitroglycerin 0.4 mg sublingual 0.4 mg sublingual Q5M PRN Chest 05/22/23 05/26/24 Unknown History tablet Pain albuterol sulfate 90 mcg/actuation 2 inh inhalation Q4H PRN shortness 06/14/23 05/26/24 Unknown Rx aerosol inhaler of breath or wheezing #8.5 grams ondansetron HCl 4 mg tablet 4 mg PO Q4H PRN Nausea 07/04/23 05/26/24 Unknown History apixaban 5 mg tablet (Eliquis) 5 mg PO Q12H #60 tabs 07/25/23 05/26/24 Unknown Rx Lactobacillus rhamnosus GG 10 1 cap PO DAILY 05/26/24 05/26/24 Unknown History billion cell capsule (Culturelle) ferrous gluconate 324 mg (36 mg 324 mg PO DAILY 05/26/24 05/26/24 Unknown History iron) tablet levomefolate 500 mcg-niacinamide 2 tab PO DAILY 05/26/24 05/26/24 Unknown History 750 sw-xwljbr-Np-selen-chrom tablet (Nicotinamide (with chromium)) prednisone 10 mg tablet 10 mg PO DAILY bullous pemphigoid 05/26/24 05/26/24 Unknown History trazodone 50 mg tablet 50 mg PO BEDTIME 05/26/24 05/26/24 Unknown History insulin aspart U-100 100 unit/mL See Rx Instructions .Route 05/30/24 05/26/24 Unknown Rx (3 mL) subcutaneous pen (Novolog .COMPLEX #15 mL FlexPen U-100 Insulin aspart) isosorbide mononitrate 30 mg 15 mg (1/2 x 30 mg) PO DAILY 30 05/30/24 05/26/24 Unknown Rx tablet,extended release 24 hr days #30 tabs Allergies Allergy/AdvReac Type Severity Reaction Status Date / Time hydrocodone Allergy Unknown Unknown Verified 10/23/23 13:42 Penicillins Allergy Unknown Unknown Verified 10/23/23 13:42 valsartan Allergy Unknown Unknown Verified 10/23/23 13:42 simvastatin Allergy Unknown Verified 10/23/23 13:42 PFSH Acute 2 PFSH: Medical History Exertional shortness of breath Type 2 diabetes mellitus KOKI (acute kidney injury) Acute blood loss anemia Ischemic bowel disease Small bowel obstruction Insomnia disorder Chest pain Spinal cord stimulator status Chronic kidney disease, stage II (mild) Hypothyroidism Hypertension COPD (chronic obstructive pulmonary disease) Lower back pain GI bleed Systolic congestive heart failure Last echocardiogram 12/19/2022: LVEF 35-40%, mild aortic stenosis (mean gradient 7 mmHg, EVERT 1.2 cm?) LVEF decreased from 55% in 2020. CVA (cerebral vascular accident) Pulmonary embolism Coronary artery disease Surgical History H/O cardiac catheterization H/O shoulder surgery Hx of cholecystectomy History of right-sided carotid endarterectomy History of ankle surgery Family History Denies family history of Lung disease Hypertension Social History Smoking and tobacco/nicotine status: former use of tobacco/nicotine Alcohol intake: never Substance/Drug Use: never Household members: other Details: Resident of a group home Vitals/I&O/Wt Last Vital Signs Temp 97.7 F 09/01/24 07:56 Pulse 92 09/01/24 08:25 Resp 21 H 09/01/24 08:25 BP 91/56 09/01/24 08:25 Pulse Ox 87 L 09/01/24 08:25 O2 Del Method Nasal Cannula 09/01/24 07:56 O2 Flow Rate 3 09/01/24 07:56 Weight last 48 hrs Weight 87.09 kg Physical Exam 2 Narrative: When I extended my hands, patient was able to raise his hand and shake my hand on both sides, he is old able to move lower extremities He seems to have expressive aphasia Right-sided focal visual deficit He did not protrude his tongue when I asked him through verbal command Not making eye contact Abdomen soft Petechial rash all over his body Skin rash at multiple stages Mostly at extremities Nondistended abdomen Currently on 2 L nasal cannula Hemodynamically stable Data 09/01/24 08:11 09/01/24 08:11 A&P Assessment and plan (1) Goals of care, counseling/discussion: (2) Systolic congestive heart failure: (3) Exertional shortness of breath: (4) Pulmonary embolism: Qualifiers: Pulmonary embolism type: unspecified Chronicity: chronic Acute cor pulmonale presence: unspecified Qualified Code(s): I27.82 - Chronic pulmonary embolism (5) Acute renal failure: (6) Bladder outlet obstruction: (7) Septic shock: (8) Cerebrovascular accident: (9) Altered mental status: (10) Encephalopathy: (11) Pneumonia: (12) Acute respiratory failure with hypoxia: Plan Altered mental status Metabolic encephalopathy related to acute CVA and aspiration pneumonia Sepsis Sepsis criteria met with tachypnea tachycardia high lactic acid source of infection seems to be aspiration I have put patient on aztreonam and clindamycin Acute CVA cannot of tPA candidate on Eliquis, request speech therapy, daughter not sure if they will opt for feeding tube if needed, she is a medical DPOA Hypotension and dehydration Responsive to IV fluids Monitor lactic acid KOKI with hyperkalemia, hold nephrotoxic agents such as lisinopril, continue IV fluids, monitor urine output Mackey catheter placed, patient has BPH as well DNR/DNI Spoke with the daughter Reviewed previous records summary mentioned in HPI Patient has bullous pemphigoid rash, has seen chess instructor, Guarded prognosis if patient not able to eat and follow commands Chronic hypoxia at baseline uses 3 L of oxygen, chronic PE takes Eliquis Patient is also diabetic taking insulin with sliding scale Attestations 2 Medical Necessity Statement*: More than 2 midnights anticipated Diagnoses Goals of care, counseling/discussion Z71.89 Chronic systolic congestive heart failure I50.20 Exertional shortness of breath R06.02 Chronic pulmonary embolism, unspecified pulmonary embolism type, unspecified whether acute cor pulmonale present I27.82 Pulmonary embolism type: unspecified Chronicity: chronic Acute cor pulmonale presence: unspecified Acute renal failure N17.9 Bladder outlet obstruction N32.0 Septic shock A41.9; R65.21 Cerebrovascular accident I63.9 Altered mental status R41.82 Encephalopathy G93.40 Pneumonia J18.9 Acute respiratory failure with hypoxia J96.01
[2024-09-01] MEDS: cefTRIAXone 1,000 mg SDV 1000 MG IVP (09:22)
[2024-09-01] MEDS: aspirin 300 mg Supp PR (09:33)
[2024-09-01] MEDS: azithromycin 500 MG in sodium chloride 0.9% 250 ML 250 MG IV (09:33)
[2024-09-01 09:36] LABS: Glucose Point of Care 157 mg/dL (70-110)
[2024-09-01 09:52] LABS: Bilirubin Urine Negative (Negative); Blood Urine Negative (Negative); Glucose Urine UA 3+ (Normal); Ketones Urine 1+ (Negative); Leukocyte Esterase Urine Negative (Negative); Nitrate Urine Negative (Negative); Protein Urine 2+ (Negative); Urine Appearance Clear (CLEAR); Urine Color Yellow (Yellow)
[2024-09-01 09:57] LABS: Add Urine Microscopic? YES; Hyaline Casts Urine 13.63 /lpf; RBC Urine 0-2 /hpf (0-2); Squamous Epithelial Cell Urine 0-5 /hpf (0-5); WBC Urine 0-5 /hpf (0-5)
[2024-09-01 10:03] LABS: Reflex Lactate Order REFLEX LACTIC ORDERD
[2024-09-01 10:13] LABS: Specific Gravity, Urine 1.035 (1.005-1.030)
[2024-09-01 10:14] LABS: Bacteria Urine 1+ /hpf; Mucus Urine 1+ /hpf; UA Slide Review UA Slide Review Perf
[2024-09-01 10:15] LABS: Coarse Granular Casts Urine 0-4 /lpf
[2024-09-01 11:44] LABS: Lactic Acid level (Lactate) 4.3 mmol/L (0.5-2.2)
[2024-09-01] MEDS: sodium chloride 0.9% 1,000 ML 75 ML IV (13:06)
[2024-09-01] MEDS: clindamycin 900 MG/50 ML PREMIX 100 MG IV ×2 (13:08→21:06)
[2024-09-01] MEDS: aztreonam 1,000 MG in sodium chloride 0.9% (plus) 50 ML 100 MG IV (13:15)
[2024-09-01] MEDS: oxyCODONE-APAP 5-325 mg Tablet 1 TAB PO ×2 (15:09→21:49)
[2024-09-01 15:36] LABS: MRSA PCR OZH (swab) MRSA Detected (Negative)
[2024-09-01] MEDS: atorvastatin 40 mg Tablet 20 MG PO (21:08)
[2024-09-01] MEDS: apixaban 5 mg Tablet 2.5 MG PO (21:08)
--- NOTE | 2024-09-01 22:08 | PC.NURSE ---
Patient becoming increasingly anxious, pulling at hodges, attempting to remove lines and crawl out of bed. Was able to state hurt and mumbled curse words then attempted to swat at this nurse. PRN pain meds administered, and contacted Dr. Hart to make aware of increasing anxiety. New order received for IM haldol.
[2024-09-01] MEDS: haloperidol inj 5 mg/mL INJ 1 mL 2 MG IM (22:55)
[2024-09-01] MEDS: dexmedeTOMIDine 0.9 % NaCL 400 MCG/100 ML PREMIX IV (23:59)
[2024-09-02] MEDS: aztreonam 1,000 MG in sodium chloride 0.9% (plus) 50 ML 100 MG IV (01:14)
--- NOTE | 2024-09-02 01:22 | PC.NURSE ---
Patient was intermittently restless earlier in shift. Became more anxious and began pulling at catheter, IV lines, removing SCD's, and attempting to get out of bed. Initally redirected easily, but became more and more difficult, and patient became more physically agitated and swatted at this nurse. Contacted Dr. Hart and ordered 1x IM Haldol. Med administered and patient did well for short time. Patient then became more anxious and aggressive, combative with staff, more aggressive about attempting to get out of bed and pulling at tubes and lines. Patient aphasic and unable to verbalize needs, offered paper to write on and patient became angrier. Assisted up to toilet and patient was then agreeable to going back to bed, then became aggressive again. Provided thickened water which was ineffective in calming pt. Security in room intervened when patient was combative using safe approved techiques. Contacted Dr. Hart and made aware of escalating behavior. Precedex ordered and started.
[2024-09-02] MEDS: sodium chloride 0.9% 1,000 ML 75 ML IV (04:37)
--- NOTE | 2024-09-02 04:58 | PC.NURSE ---
Blood pressure down to 97/49 map 65 and pulse in high 50's with frequent PVC's. Patient resting, Precedex drip stopped at this time.
[2024-09-02] MEDS: clindamycin 900 MG/50 ML PREMIX 100 MG IV (04:59)
[2024-09-02 06:20] LABS: Basophils % 0.6 %; Eosinophils # 0.1 10^3/uL (0.0-0.8); Eosinophils % 1.2 %; Hematocrit 35.7 % (37-53); Mean Corpuscular HGB Conc 27.7 g/dL (30-55); Mean Corpuscular Hemoglobin 24.3 pg (27-33); Mean Corpuscular Volume 87.7 fl (82-101); Monocytes # 0.7 10^3/uL (0.2-0.9); Monocytes % 9.6 %; Neutrophils # 4.95 10^3/uL (1.8-7.7); Neutrophils % 73.3 %; Nucleated Red Blood Cells % 0.4 %; Platelet Count 285 10^3/cmm (157-399); Red Blood Count 4.07 10^6/uL (3.85-5.65); Red Cell Distribution Width 20.1 % (12.1-15.1); White Blood Count 6.75 10^3/uL (3.29-11.43)
[2024-09-02 06:39] LABS: Lactic Sepsis W/Reflex 1.8 mmol/L (0.5-2.2)
[2024-09-02 06:40] LABS: Blood Urea Nitrogen 24 mg/dL (8-23); Calcium 7.9 mg/dL (8.5-10.5); Carbon Dioxide 18 mmol/L (22-29); Chloride 108 mmol/L (98-107); Creatinine Clr Calc Pharmacy 44.0556; Glucose 116 mg/dL (65-115); Magnesium 2.2 mg/dL (1.7-2.3); Osmolality Calculated 289 mOsm/kg (285-295); Sodium 137 mmol/L (136-145)
[2024-09-02 06:41] LABS: Anion Gap 15.6 (5-19); Potassium 4.6 mmol/L (3.5-5.1)
[2024-09-02] MEDS: predniSONE 10 mg Tablet PO (07:41)
[2024-09-02 07:42] VITALS: RESP 14; O2SAT 93
[2024-09-02] MEDS: oxyCODONE-APAP 5-325 mg Tablet 1 TAB PO (07:42)
[2024-09-02] MEDS: apixaban 5 mg Tablet 2.5 MG PO (07:42)
[2024-09-02] MEDS: levothyroxine 150 mcg Tablet PO (07:42)
[2024-09-02] MEDS: OLANZapine 10 mg VIAL IM (08:04)
[2024-09-02] MEDS: water for injection-sterile 10 ML (08:07)
[2024-09-02 08:18] VITALS: PULSE 96; RESP 18; O2SAT 96
--- NOTE | 2024-09-02 09:15 | PC.SOCIAL ---
IMM Update Pg. 2 of IMM Updated and reviewed with patient. Copy provided.
--- NOTE | 2024-09-02 11:02 | DCPLANNER ---
This nurse called patients daughter, Joyce, to verify that pt would be going back to [facility] upon discharge. Joyce agrees that pt will be going back to [facility].
--- NOTE | 2024-09-02 12:26 | P.PN_ITS ---
Subjective 2 Subjective: Patient did not pass swallow eval, requested modified BM swallow Requiring Precedex for his agitation Patient has frustration secondary to expressive aphasia Precedex can cause bradycardia, he was given Zyprexa in the morning and now he is getting Ativan 2 mg IV We are not sure whether he would cooperate for modified barium swallow, he has not eaten well in last few days will request dietitian for PPN We are continuing n.p.o. status for now MRSA nares positive, discontinue aztreonam, continue clindamycin Vitals/I&O/Wt Last Vital Signs Temp 97.7 F 09/01/24 07:56 Pulse 96 09/02/24 08:18 Resp 18 09/02/24 08:18 BP 114/59 09/01/24 10:53 Pulse Ox 96 09/02/24 08:18 O2 Del Method Nasal Cannula 09/02/24 08:18 O2 Flow Rate 3 09/02/24 08:18 09/01/24 09/02/24 09/02/24 22:59 06:59 14:59 Intake Total 240 / 2590 1429.177 / 4019.177 50 / 50 Output Total 900 / 900 400 / 1300 Balance -660 / 1690 1029.177 / 2719.177 50 / 50 Weight last 48 hrs Weight 98.5 kg Weight 86.5 kg Weight 87.09 kg Physical Exam 2 Narrative: Patient is agitated Anxious appearing Has expressive aphasia Skin ulcer has not worsened Hemodynamically stable Currently on 3 L nasal cannula No fever this morning Abdomen soft nontender Mackey catheter in place Urinary Catheter Management: Mackey: Cath Placed During This Visit: yes Reason for Continuing Indwelling Catheter: Accurate Measurement of Urinary Output in Critically Ill Patients Urinary Catheter Date of Insertion: 09/01/24 Data 09/02/24 05:42 09/02/24 05:42 Micro: Microbiology 09/01/24 09:06 Blood Culture - Preliminary Blood NEGATIVE TO DATE 09/01/24 09:09 Blood Culture - Preliminary Blood NEGATIVE TO DATE 09/01/24 09:58 Stool Lactoferrin - Final Stool - Stool Aspirate 09/01/24 09:58 Occult Blood (FIT) - Final Stool - Stool Aspirate A&P Assessment and plan (1) Goals of care, counseling/discussion: (2) Systolic congestive heart failure: (3) Exertional shortness of breath: (4) Pulmonary embolism: Qualifiers: Pulmonary embolism type: unspecified Chronicity: chronic Acute cor pulmonale presence: unspecified Qualified Code(s): I27.82 - Chronic pulmonary embolism (5) Acute renal failure: (6) Bladder outlet obstruction: (7) Septic shock: (8) Cerebrovascular accident: (9) Altered mental status: (10) Encephalopathy: (11) Pneumonia: (12) Acute respiratory failure with hypoxia: Plan Altered mental status Metabolic encephalopathy related to acute CVA and aspiration pneumonia ICU related delirium Frustration related to expressive aphasia as well Currently on Precedex drip Receive Zyprexa and Ativan Sepsis no fever this morning continue clindamycin discontinue aztreonam for MRSA PCR nares Acute CVA with expressive aphasia Failed speech therapy, requested modified barium swallow Hypotension and dehydration: Improved Lactic acid improved as well KOKI with hyperkalemia, hyperkalemia resolved, creatinine improving with improvement in hydration Patient has bullous pemphigoid rash, continue prednisone Guarded prognosis if patient not able to eat and follow commands Chronic hypoxia at baseline uses 3 L of oxygen, chronic PE takes Eliquis Patient is also diabetic taking insulin with sliding scale Further plan will be made after we do modified barium swallow, for now he is requiring medication to calm his anxiety, Attestations 2 Medical Necessity Statement*: Continue ICU management Coding Level of Care Code 37489 Diagnoses Goals of care, counseling/discussion Z71.89 Chronic systolic congestive heart failure I50.20 Exertional shortness of breath R06.02 Chronic pulmonary embolism, unspecified pulmonary embolism type, unspecified whether acute cor pulmonale present I27.82 Pulmonary embolism type: unspecified Chronicity: chronic Acute cor pulmonale presence: unspecified Acute renal failure N17.9 Bladder outlet obstruction N32.0 Septic shock A41.9; R65.21 Cerebrovascular accident I63.9 Altered mental status R41.82 Encephalopathy G93.40 Pneumonia J18.9 Acute respiratory failure with hypoxia J96.01
[2024-09-02] MEDS: LORazepam 2 mg/mL INJ 1 mL IVP ×2 (12:33→19:13)
--- NOTE | 2024-09-02 14:01 | PC.OT ---
OT EVALUATION HELD PER NURSING REQUEST SECONDARY TO AGITATION
--- NOTE | 2024-09-02 16:43 | PC.NURSE ---
Patient remains agitated, not following commands, unable to perform baruim swallow testing. Will continue to reassess for ability to perform test this shift.
[2024-09-02] MEDS: dexmedeTOMIDine 0.9 % NaCL 400 MCG/100 ML PREMIX 6.49 MCG IV (21:48)
[2024-09-03] MEDS: dexmedeTOMIDine 0.9 % NaCL 400 MCG/100 ML PREMIX 6.49 MCG IV (05:24)
[2024-09-03 05:34] LABS: Basophils % 0.5 %; Eosinophils # 0.1 10^3/uL (0.0-0.8); Hematocrit 32.3 % (37-53); Lymphocytes # 0.7 10^3/uL (0.8-4.8); Lymphocytes % 11.1 %; Mean Corpuscular HGB Conc 28.8 g/dL (30-55); Mean Corpuscular Volume 83.2 fl (82-101); Mean Platelet Volume 10.3 fL (7.4-10.4); Monocytes # 0.6 10^3/uL (0.2-0.9); Neutrophils # 4.83 10^3/uL (1.8-7.7); Neutrophils % 76.8 %; Nucleated Red Blood Cells % 0 %; Platelet Count 271 10^3/cmm (157-399); Red Blood Count 3.88 10^6/uL (3.85-5.65); Red Cell Distribution Width 19.6 % (12.1-15.1); White Blood Count 6.29 10^3/uL (3.29-11.43)
[2024-09-03 05:52] LABS: Anion Gap 15.6 (5-19); Blood Urea Nitrogen 15 mg/dL (8-23); Calcium 7.8 mg/dL (8.5-10.5); Carbon Dioxide 21 mmol/L (22-29); Chloride 109 mmol/L (98-107); Creatinine Clr Calc Pharmacy 74.3673; Glucose 139 mg/dL (65-115); Osmolality Calculated 295 mOsm/kg (285-295); Potassium 4.6 mmol/L (3.5-5.1); Sodium 141 mmol/L (136-145)
[2024-09-03 08:56] VITALS: PULSE 70; RESP 22; O2SAT 92
--- NOTE | 2024-09-03 09:30 | FL_ITS ---
WS: [id number] Exam: FL barium swallow modifd [id number] Date/Time of Exam: 09/03/2024 10:59 AM Reason For Exam: Oropharyngeal dysphagia Fluoroscopy time: 4min [id number] minutes # of spot films: 1 Modified barium swallow study performed in conjunction with the speech therapy service. Oral pharyngeal phase of swallowing was somewhat compromised with the patient having difficulty eleva ting the tongue to the hard palate to initiate swallowing. The patient experienced mild penetration i nto the laryngeal inlet when ingesting thin and thick liquid barium. The patient tolerated the remain ing consistencies of barium mixture foodstuffs without difficulty. The patient could not swallow the administered barium tablet. No aspiration was observed. FL/FL barium swallow modifd [id number] IMPRESSION: 1. Compromised oropharyngeal phase of swallowing. See above discussion. 2. The patient experienced penetration when ingesting thin and thick liquid bar ium solutions. No aspiration. A separate report of findings and recommendations will follow from the speech t herapy service.
[2024-09-03] MEDS: levothyroxine 150 mcg Tablet PO (09:57)
[2024-09-03] MEDS: predniSONE 10 mg Tablet PO (09:57)
[2024-09-03] MEDS: apixaban 5 mg Tablet 2.5 MG PO ×2 (09:57→19:53)
[2024-09-03] MEDS: ondansetron 2 mg/ML SDV 2 mL 4 MG IVP (10:26)
--- NOTE | 2024-09-03 12:29 | PM.DCS ---
Discharge Providers Date of Admission: 09/01/24 09:18 Date of Discharge: September 03, 2024 Attending Provider at Admission: Ace Harris MD Attending Provider at Discharge: Ace Harris MD Primary Care Provider: Dheeraj Rodgers MD Diagnoses at Discharge Discharge Diagnosis (1) Goals of care, counseling/discussion: Status: Acute (2) Systolic congestive heart failure: Status: Acute Permanent problem details: Last echocardiogram 12/19/2022: LVEF 35-40%, mild aortic stenosis (mean gradient 7 mmHg, EVERT 1.2 cm?) LVEF decreased from 55% in 2019. (3) Exertional shortness of breath: Status: Acute (4) Pulmonary embolism: Status: Acute Qualifiers: Pulmonary embolism type: unspecified Chronicity: chronic Acute cor pulmonale presence: unspecified Qualified Code(s): I27.82 - Chronic pulmonary embolism (5) Acute renal failure: Status: Acute (6) Bladder outlet obstruction: Status: Acute (7) Septic shock: Status: Acute (8) Cerebrovascular accident: Status: Acute (9) Altered mental status: Status: Acute (10) Encephalopathy: Status: Acute (11) Pneumonia: Status: Acute (12) Acute respiratory failure with hypoxia: Status: Acute Reason for Visit Reason for Visit: [facility] Hospital Course Hospital Course 79-year-old male who presented with expressive aphasia, he has history of ischemic cardiomyopathy EF 10%, takes Eliquis for A-fib, he was deemed not a suitable candidate for tPA, his CT head is consistent with stroke, speech therapy recommended modified barium swallow, he would only take pur?ed diet with thickened liquid, patient got very agitated and frustrated because of expressive aphasia required Precedex drip which prolonged his ICU stay. He is DNR/DNI which has been confirmed with his daughter Joyce Jones. I have changes antiplatelet therapy to Plavix and discontinue aspirin because he is already on Eliquis. I will discontinue Imdur because the pressure is staying stable he is already taking Entresto. Patient takes prednisone as well for bullous pemphigoid rash. Physical Exam Narrative: Expressive aphasia Able to move extremities S1, S2 variable Blood pressure stable Currently on 2 L nasal cannula Urinary Catheter Management: Mackey: Cath Placed During This Visit: yes Reason for Continuing Indwelling Catheter: Accurate Measurement of Urinary Output in Critically Ill Patients Urinary Catheter Date of Insertion: 09/01/24 Discharge Data Studies Completed and Pending Completed Studies During Hospitalization Category Date Time Status CT head wo con* [id number] Stat Cat Scan 09/01/24 07:53 Completed FL barium swallow modifd [id number] Stat Exams 09/03/24 09:30 Completed XR chest 1V portable [id number] Stat Exams 09/01/24 07:53 Completed Pending at discharge Category Date Time Status Blood Culture Stat Lab 09/01/24 09:09 Results C.Diff PCR (Lab) Routine Lab 09/01/24 07:53 Uncollected OVA and Parasites, Conc and PE Routine Lab 09/01/24 07:53 Uncollected Salmonella / Shigella / Campy Routine Lab 09/01/24 07:53 Uncollected Radiology Impressions Chest X-Ray 09/01/24 07:53 IMPRESSION: Peripheral hazy opacities in the right chest that appear similar to prior. Worsening hazy opacities throughout the left chest. Consider CT to better characterize. Findings discussed with HUMPHREY MORRIS at 09/01/2024 9:[address] 09/01/24 07:53 IMPRESSION: 1. New focal loss of knight-white differentiation in the left frontoparietal region suspicious for acute infarct. Recommend MRI to further assess. 2. Mild senescent changes as above. 3. No acute intracranial hemorrhage. ADDENDUM: 09/01/24909 Findings discussed with HUMPHREY MORRIS at 09/01/2024 9:09 AM CDT. Modified Barium Swallow 09/03/24 09:30 IMPRESSION: 1. Compromised oropharyngeal phase of swallowing. See above discussion. 2. The patient experienced penetration when ingesting thin and thick liquid barium solutions. No aspiration. A separate report of findings and recommendations will follow from the speech therapy service. Laboratory Results WBC 6.29 10^3/uL (3.29-11.43) 09/03/24 05:02 RBC 3.88 10^6/uL (3.85-5.65) 09/03/24 05:02 Hgb 9.30 g/dL (11.27-16.99) L 09/03/24 05:02 Hct 32.3 % (37-53) L 09/03/24 05:02 MCV 83.2 fl (82-101) D 09/03/24 05:02 MCH 24.0 pg (27-33) L 09/03/24 05:02 MCHC 28.8 g/dL (30-55) L 09/03/24 05:02 RDW 19.6 % (12.1-15.1) H 09/03/24 05:02 Plt Count 271 10^3/cmm (157-399) 09/03/24 05:02 MPV 10.3 fL (7.4-10.4) 09/03/24 05:02 Neut % (Auto) 76.8 % 09/03/24 05:02 Lymph % (Auto) 11.1 % 09/03/24 05:02 Iron % (Auto) 10.0 % 09/03/24 05:02 Eos % (Auto) 1.0 % 09/03/24 05:02 Baso % (Auto) 0.5 % 09/03/24 05:02 Neut # (Auto) 4.83 10^3/uL (1.8-7.7) 09/03/24 05:02 Lymph # (Auto) 0.7 10^3/uL (0.8-4.8) L 09/03/24 05:02 Iron # (Auto) 0.6 10^3/uL (0.2-0.9) 09/03/24 05:02 Eos # (Auto) 0.1 10^3/uL (0.0-0.8) 09/03/24 05:02 Baso # (Auto) 0.0 10^3/uL (0.0-0.1) 09/03/24 05:02 Nucleated RBC % (auto) 0 % 09/03/24 05:02 Nucleated RBCs # 0.0 /100WBC 09/03/24 05:02 PT 20.80 SECONDS (12.1-14.9) H 09/01/24 08:11 INR 1.72 (0.8-1.2) H 09/01/24 08:11 Specimen Type Arterial 09/01/24 08:12 Sample Site Radial, right 09/01/24 08:12 ABG pH 7.34 (7.35-7.45) L 09/01/24 08:12 ABG pCO2 35.1 mmHg (35-45) 09/01/24 08:12 ABG pO2 52.4 mmHg (80.0-100.0) L 09/01/24 08:12 ABG HCO3 18.9 mmol/L (22-26) L 09/01/24 08:12 ABG Base Excess -6.2 mmol/L (-2.0-2.0) L 09/01/24 08:12 Fan Test Pos 09/01/24 08:12 Hematocrit 31.8 % (42-52) L 09/01/24 08:12 Hgb O2 Saturation 79.0 % (95-100) L 09/01/24 08:12 Carboxyhemoglobin 1.8 %THgb (0.4-20.1) 09/01/24 08:12 Methemoglobin 1.6 % (0.4-1.5) H 09/01/24 08:12 Total Hemoglobin 10.4 g/dL (14-18) L 09/01/24 08:12 O2 Delivery Device Nc 09/01/24 08:12 O2 Liters/Min 4.0 % 09/01/24 08:12 Photography Colorist ID [place] maria 09/01/24 08:12 Sodium 141 mmol/L (136-145) 09/03/24 05:02 Potassium 4.6 mmol/L (3.5-5.1) 09/03/24 05:02 Chloride 109 mmol/L (98-107) H 09/03/24 05:02 Carbon Dioxide 21 mmol/L (22-29) L 09/03/24 05:02 Anion Gap 15.6 (5-19) 09/03/24 05:02 BUN 15 mg/dL (8-23) 09/03/24 05:02 Creatinine 0.9 mg/dL (0.7-1.2) 09/03/24 05:02 GFR Calculation Not Reportable 09/03/24 05:02 Glucose 139 mg/dL (65-115) H 09/03/24 05:02 POC Glucose 157 mg/dL (70-110) H 09/01/24 08:58 Calculated Osmolality 295 mOsm/kg (285-295) 09/03/24 05:02 Lactic Acid 1.8 mmol/L (0.5-2.2) 09/02/24 05:42 Lactic Acid (Sepsis) 4.3 mmol/L (0.5-2.2) H* 09/01/24 11:16 Calcium 7.8 mg/dL (8.5-10.5) L 09/03/24 05:02 Magnesium 2.2 mg/dL (1.7-2.3) 09/02/24 05:42 Total Bilirubin 1.2 mg/dL (0.15-1.2) 09/01/24 08:11 AST 758 U/L (0-40) H 09/01/24 08:11 ALT 254 U/L (0-41) H 09/01/24 08:11 Alkaline Phosphatase 137 U/L (40-130) H 09/01/24 08:11 Ammonia 32 umol/L (16-60) 09/01/24 08:11 Total Protein 6.6 g/dL (6.6-8.7) 09/01/24 08:11 Albumin 3.1 g/dL (3.5-5.2) L 09/01/24 08:11 Globulin 3.5 g/dL (1.3-4.6) 09/01/24 08:11 TSH 0.61 uIU/mL (0.27-4.20) 09/01/24 08:11 Urine Color Yellow (Yellow) 09/01/24 09:35 Urine Appearance Clear (CLEAR) 09/01/24 09:35 Urine pH 5.0 (5-7) 09/01/24 09:35 Ur Specific [place] 1.035 (1.005-1.030) H 09/01/24 09:35 Urine Protein 2+ (Negative) A 09/01/24 09:35 Urine Glucose (UA) 3+ (Normal) H 09/01/24 09:35 Urine Ketones 1+ (Negative) H 09/01/24 09:35 Urine Blood Negative (Negative) 09/01/24 09:35 Urine Nitrate Negative (Negative) 09/01/24 09:35 Urine Bilirubin Negative (Negative) 09/01/24 09:35 Urine Urobilinogen 1.0 mg/dL (Negative) 09/01/24 09:35 Ur Leukocyte Esterase Negative (Negative) 09/01/24 09:35 Urine RBC 0-2 /hpf (0-2) 09/01/24 09:35 Urine WBC 0-5 /hpf (0-5) 09/01/24 09:35 Ur Squamous Epith Cells 0-5 /hpf (0-5) 09/01/24 09:35 Amorphous Sediment Not Reportable 09/01/24 09:35 Urine Bacteria 1+ /hpf (NONE) H 09/01/24 09:35 Hyaline Casts 13.63 /lpf 09/01/24 09:35 Fine Granular Casts 5-10 /lpf H 09/01/24 09:35 Coarse Granular Casts 0-4 /lpf H 09/01/24 09:35 Urine Mucus 1+ /hpf 09/01/24 09:35 Nasal MRSA (PCR) Mrsa detected (Negative) A 09/01/24 13:44 Vitals Last Vital Signs Temp 97.7 F 09/01/24 07:56 Pulse 70 09/03/24 08:56 Resp 22 H 09/03/24 08:56 BP 114/59 09/01/24 10:53 Pulse Ox 92 09/03/24 08:56 O2 Del Method Nasal Cannula 09/03/24 08:56 O2 Flow Rate 4 09/03/24 08:56 Discharge Plan Discharge Patient Disposition: Xfer SNF Condition: Stable Prescriptions: New clopidogrel [Plavix] 75 mg tablet 75 mg PO DAILY Qty: 30 3RF Continued oxycodone-acetaminophen 5-325 mg tablet 1 tab PO Q6H PRN (Reason: pain) Eliquis 5 mg tablet 5 mg PO Q12H Qty: 60 6RF nitroglycerin 0.4 mg tablet, sublingual 0.4 mg sublingual Q5M PRN (Reason: Chest Pain) Rx Instructions: do not exceed 3 doses per episode magnesium hydroxide [Milk of Magnesia] 400 mg/5 mL Suspension 30 ml PO DAILY PRN (Reason: Constipation) Qty: 0 bisacodyl 10 mg Suppository 10 mg CO DAILY PRN (Reason: Constipation) Qty: 0 Enema 19-7 gram/118 mL Enema 118 ml CO DAILY PRN (Reason: Constipation) Qty: 0 acetaminophen 325 mg tablet 650 mg PO Q4H PRN (Reason: Mild/Mod Pain Or Temp >/= 101) albuterol sulfate 2.5 mg /3 mL (0.083 %) Solution For Nebulization 2.5 mg INHALATION Q4H PRN (Reason: Shortness Of Breath) levothyroxine 150 mcg Tablet 150 mcg PO DAILY pantoprazole 40 mg Tablet,Delayed Release (Dr/Ec) 40 mg PO DAILY metformin 1,000 mg Tablet 1,000 mg PO BID cyanocobalamin (vitamin B-12) [Vitamin B-12] 1,000 mcg Tablet 1,000 mcg PO DAILY albuterol sulfate 90 mcg/actuation HFA aerosol inhaler 2 inh inhalation Q4H PRN (Reason: shortness of breath or wheezing) Qty: 8.5 0RF magnesium oxide 200 mg magnesium Tablet 400 mg PO TID tamsulosin 0.4 mg capsule 0.4 mg PO DAILY metoprolol succinate 25 mg tablet extended release 24 hr 25 mg PO DAILY memantine 10 mg tablet 10 mg PO DAILY ferrous gluconate 324 mg (38 mg iron) Tablet 324 mg PO DAILY Pro-Stat 101 15-101 gram-kcal/30 mL Liquid See Rx Instructions .ROUTE .COMPLEX Rx Instructions: take 30 ml by mouth every day for for nutritional support Jardiance 10 mg tablet 10 mg PO DAILY buspirone 10 mg tablet 10 mg PO BID Entresto 49-51 mg tablet 1 tab PO BID loperamide 2 mg capsule See Rx Instructions .ROUTE .COMPLEX Rx Instructions: Take 1 to 2 capsules by mouth as needed for loose stool then take 1 capsule by mouth as needed each stool thereafter *not to exceed 16mg in 24 hours tizanidine 2 mg tablet 2 mg PO Q8H PRN (Reason: muscle spasm ) clobetasol 0.05 % ointment 1 applic TOPICAL BID PRN (Reason: bullous pemphigoid) Biofreeze (menthol) 4 % Gel 1 applic TOPICAL QID PRN (Reason: Pain) alprazolam [Xanax] 0.5 mg Tablet 0.5 mg PO DAILY PRN (Reason: anxiety ) gabapentin 300 mg Capsule 300 mg PO TID quetiapine 50 mg tablet 50 mg PO 1800 ondansetron HCl 4 mg Tablet 4 mg PO Q4H PRN (Reason: Nausea) prednisone 10 mg tablet 10 mg PO DAILY Culturelle 10 billion cell Capsule 1 cap PO DAILY insulin aspart U-100 [Novolog FlexPen U-100 Insulin] 100 unit/mL (3 mL) Insulin Pen See Rx Instructions .ROUTE .COMPLEX Qty: 15 0RF Rx Instructions: Inject, subcut, tid, after meals, based on sliding scale Changed atorvastatin 10 mg tablet 20 mg PO BEDTIME Qty: 30 0RF Discontinued duloxetine [Cymbalta] 60 mg Capsule,Delayed Release(Dr/Ec) 60 mg PO BID minocycline 100 mg capsule 100 mg PO DAILY aspirin [Amarilis Low Dose Aspirin] 81 mg Tablet,Delayed Release (Dr/Ec) 81 mg PO DAILY isosorbide mononitrate 30 mg tablet extended release 24 hr 15 mg PO DAILY 30 Days Qty: 30 0RF Discharge Orders: Discharge Order (Routine); Ordered 09/03/24 Ordered By: Ace Harris Referrals: Dheeraj Rodgers MD [Primary Care Provider] - Discharge Diet: As Directed Patient Instructions: Opioid Safety Activity Restrictions/Additional Instructions: Patient will only tolerate thick liquid, pur?ed diet He is expected to have confusion and frustration because of expressive aphasia Discharge Attestations Time Spent in Discharge Care*: greater than 30 min Status at Discharge: Cognitive status at discharge: cognitively intact, Behavioral status at discharge: cooperative, Quality Metrics Clinical Quality Measures [ No reported AMI, CVA or VTE this stay] Coding Level of Care Code Acute Code for Chg Fwd Diagnoses Goals of care, counseling/discussion Z71.89 Chronic systolic congestive heart failure I50.20 Exertional shortness of breath R06.02 Chronic pulmonary embolism, unspecified pulmonary embolism type, unspecified whether acute cor pulmonale present I27.82 Pulmonary embolism type: unspecified Chronicity: chronic Acute cor pulmonale presence: unspecified Acute renal failure N17.9 Bladder outlet obstruction N32.0 Septic shock A41.9; R65.21 Cerebrovascular accident I63.9 Altered mental status R41.82 Encephalopathy G93.40 Pneumonia J18.9 Acute respiratory failure with hypoxia J96.01
--- NOTE | 2024-09-03 12:33 | PC.NUTR ---
Consult for PPN received. Recommend beginning PPN @ 23mls/hr and increasing 20mls Q8H as tolerated until goal rate of 83mls/hr is reached, with standard electrolytes, MV 10mls/day and 20gm/100mls fat emulsion. Details in RD assessment.
--- NOTE | 2024-09-03 13:56 | PC.OT ---
OT EVALUATION HELD TODAY DUE TO SCHEDULED PATIENT D/C.
[2024-09-03] MEDS: dilTIAZem 5 mg/mL SDV 5 mL IVP (14:40)
[2024-09-03] MEDS: metoprolol succinate ER (24 HR) 25 mg Tablet PO (14:45)
[2024-09-03] MEDS: amiodarone 200 mg Tablet 400 MG PO (15:21)
[2024-09-03] MEDS: LORazepam 2 mg/mL INJ 1 mL 1 MG IVP (15:37)
--- NOTE | 2024-09-03 15:56 | PM.PN ---
Subjective Subjective: Discharge order was canceled because patient became extremely agitated tachycardic A-fib RVR required Cardizem IV Will resume his p.o. regimen along anxiolytics Later in the day patient had a fall unwitnessed in the ICU room as well Vitals/I&O/Wt Last Vital Signs Temp 97.7 F 09/01/24 07:56 Pulse 70 09/03/24 08:56 Resp 22 H 09/03/24 08:56 BP 114/59 09/01/24 10:53 Pulse Ox 92 09/03/24 08:56 O2 Del Method Nasal Cannula 09/03/24 08:56 O2 Flow Rate 4 09/03/24 08:56 09/03/24 09/03/24 09/03/24 06:59 14:59 22:59 Intake Total 66.599 / 792.111 65.196 / 65.196 Output Total 200 / 200 Balance 66.599 / 792.111 -134.804 / -134.804 Weight last 48 hrs Weight 88 kg Weight 98.5 kg Physical Exam Narrative: Agitated Expressive aphasia Not able to follow commands completely GCS 15 I do not see any focal deficits A-fib RVR Abdomen soft Urinary Catheter Management: Mackey: Cath Placed During This Visit: yes Reason for Continuing Indwelling Catheter: Accurate Measurement of Urinary Output in Critically Ill Patients Urinary Catheter Date of Insertion: 09/01/24 Data 09/03/24 05:02 09/03/24 05:02 A&P Assessment and plan (1) Goals of care, counseling/discussion: (2) Cerebrovascular accident: (3) Altered mental status: (4) Expressive aphasia: (5) Systolic congestive heart failure: (6) Exertional shortness of breath: (7) Pulmonary embolism: Qualifiers: Pulmonary embolism type: unspecified Chronicity: chronic Acute cor pulmonale presence: unspecified Qualified Code(s): I27.82 - Chronic pulmonary embolism (8) Acute renal failure: (9) Bladder outlet obstruction: (10) Septic shock: (11) Encephalopathy: (12) Pneumonia: (13) Acute respiratory failure with hypoxia: Plan Altered mental status Metabolic encephalopathy related to acute CVA and aspiration pneumonia ICU related delirium Patient required Precedex and Geodon Haldol I have resumed his anxiolytics Requested bladder scan to rule out urinary retention Patient did not like his meal as well Sepsis resolved: Patient has nares his positive MRSA Will need aspiration pneumonia treatment with doxycycline Acute CVA with expressive aphasia Okay with pur?e diet with thickened liquid Hypotension and dehydration: Improved Lactic acid improved as well KOKI with hyperkalemia, hyperkalemia resolved, creatinine improving with improvement in hydration Patient has bullous pemphigoid rash, continue prednisone Chronic hypoxia at baseline uses 3 L of oxygen, chronic PE takes Eliquis Patient is also diabetic taking insulin with sliding scale A-fib RVR, continue metoprolol added amiodarone Continue Eliquis Can be discharged back to detention tomorrow if confusion and A-fib RVR improved Attestations Medical Necessity Statement*: Discharge tomorrow Diagnoses Goals of care, counseling/discussion Z71.89 Cerebrovascular accident I63.9 Altered mental status R41.82 Expressive aphasia R47.01 Chronic systolic congestive heart failure I50.20 Exertional shortness of breath R06.02 Chronic pulmonary embolism, unspecified pulmonary embolism type, unspecified whether acute cor pulmonale present I27.82 Pulmonary embolism type: unspecified Chronicity: chronic Acute cor pulmonale presence: unspecified Acute renal failure N17.9 Bladder outlet obstruction N32.0 Septic shock A41.9; R65.21 Encephalopathy G93.40 Pneumonia J18.9 Acute respiratory failure with hypoxia J96.01
[2024-09-03] MEDS: haloperidol inj 5 mg/mL INJ 1 mL IM (16:29)
--- NOTE | 2024-09-03 16:29 | PC.NURSE ---
Addendum entered by ROSALINA Morfin 09/03/24 16:48: No changes in mental status, cuts, scraps post fall. Patient denies pain at this time. Original Note: Throughout shift patient attempted to get out of bed numerous times, patient was educated on safety and reorientated several times on use of call light and risk of falling out of bed. Physician notified of patient attempts and was gave a verbal order of IVP 1mg ativan. An hour after patient was given ativan, he was found on floor as he got out of bed without help from staff and fell. Dr. Harris was notified and orders for a head CT and 1:1 sitter placed. Orders for haldol 5 mg/ml given as well.
--- NOTE | 2024-09-03 17:33 | PC.NURSE ---
Patient continues to rip off telemetry patches, clothes, patient identification bracelet, and pulled out left ac IV. Dr. Harris notified about concern of patient being able to tolerate head CT due to agitation. Physician gave verbal orders to wait for head CT due to agitation.
--- NOTE | 2024-09-03 19:00 | PC.NURSE ---
Hodges Catheter: No hodges catheter present on arrival to shift. Charted out at 09/03/24 1900 to reflect this. Removal time unknown.
[2024-09-03] MEDS: haloperidol inj 5 mg/mL INJ 1 mL IVP (19:27)
--- NOTE | 2024-09-03 19:41 | PC.NURSE ---
Agitation: Pt arrived to CSU at shift change, shortly after he became restless/agitated. Evidence by pulling off oxygen, heart monitor, BP cuff, and gown. Pt was attempting to get out off bed and is not apply to follow any safety commands. During this time pt was not responsive to his name but does move all of his extremities. Dr. Tijerina called. New order for 5mg IVP Haldol ONCE NOW. See MAR for administration. This RN at bedside for 30 minutes post administration, pt is still restless but no longer taking off his oxygen.
[2024-09-03 19:47] VITALS: RESP 22; O2SAT 93
[2024-09-03] MEDS: oxyCODONE-APAP 5-325 mg Tablet 1 TAB PO (19:47)
[2024-09-03] MEDS: ALPRAZolam 0.5 mg Tablet PO (19:48)
[2024-09-03] MEDS: atorvastatin 40 mg Tablet 20 MG PO (19:52)
[2024-09-03] MEDS: BuSPIRONE 10 mg Tablet PO (19:53)
--- NOTE | 2024-09-03 19:53 | PC.NURSE ---
PO Meds: After administration of Haldol pt was able to take PO medications crushed in pudding. See MAR for administration.
--- NOTE | 2024-09-03 20:03 | PC.NURSE ---
1 Void: Unable to measure, incontinence episode.
[2024-09-03 22:22] VITALS: PULSE 77
--- NOTE | 2024-09-03 23:19 | PC.NURSE ---
Physician Update: Notified Dr. Tijerina @6202 that the pt is becoming restless again. Pt is pulling off oxygen and heart monitor frequently. Unable to redirect, 1:1 sitter at bedside. Not agitated at this time. New order for 5mg IVP Haldol ONCE NOW.
[2024-09-04] VITALS (12 sets, daily range): BP systolic 126–160; BP diastolic 66–96; PULSE 66–100; RESP 17–26; TEMP 36.1–36.9; O2SAT 90–100
[2024-09-04] MEDS: haloperidol inj 5 mg/mL INJ 1 mL IVP ×2 (01:22→23:00)
[2024-09-04] MEDS: oxyCODONE-APAP 5-325 mg Tablet 1 TAB PO ×4 (02:23→21:52)
[2024-09-04] MEDS: HYDROmorphone 1 mg/mL INJ 1 mL 0.5 MG IVP (03:56)
--- NOTE | 2024-09-04 04:05 | PC.NURSE ---
Pain: Pt became very restless, attempting to get out of bed, pulling oxygen and heart monitor off, stating hurt and damn repeatedly. Pt will not follow safety instructions. Frequent PVC's noted on monitor. Dr. Tijerina notified of this @9574, New order for Dilaudid 0.5mg IVP ONCE NOW. Dr. Tijerina aware of allergy to hydrocodone. See MAR for administration.
--- NOTE | 2024-09-04 07:45 | PC.OT ---
OT NOTE: PATIENT DID NOT D/C EXPECTED; TRANSFERRED TO CSU. DUE TO AGITATION PATIENT UNABLE TO ACTIVELY PARTICIPATE IN SKILLED OT EVALUATION. D/C OT ORDERS AND AWAIT NEW ORDERS WHEN PATIENT IS NOT AGITATED AND ABLE TO PARTICIPATE IN EVALUATION.
--- NOTE | 2024-09-04 08:00 | CTR_ITS ---
PROCEDURE INFORMATION: Exam: CT Head Without Contrast Exam date and time: 09/04/2024 1:55 AM Age: 79 years old Clinical indication: Injury or trauma; Fall; Blunt trauma (contusions or hematomas); Consciousness not specified TECHNIQUE: Imaging protocol: Computed tomography of the head without contrast. Radiation optimization: All CT scans at this facility use at least one of these dose optimization techniques: automated exposure control; mA and/or kV adjustment per patient size (includes targeted exams where dose is matched to clinical indication); or iterative reconstruction. COMPARISON: CT head wo con* [id number] 09/01/2024 8:36 AM RADIATION DOSE METRICS: Total DLP (mGy-cm): 1185.14 FINDINGS: Brain: No acute intracranial hemorrhage, mass effect or midline shift. Evolving infarct at the left frontal region. Encephalomalacia of the left parietal region, stable. Cerebral ventricles: No ventriculomegaly. Paranasal sinuses: Visualized sinuses are unremarkable. No fluid levels. Mastoid air cells: Visualized mastoid air cells are well aerated. Bones: Unremarkable. No acute fracture. Soft tissues: Unremarkable. CT/CT head wo con* [id number] IMPRESSION: Evolving infarct at the left frontal region without evidence of acute hemorrhage/hemorrhagic conversion.
[2024-09-04] MEDS: amiodarone 200 mg Tablet 400 MG PO ×2 (09:21→17:36)
[2024-09-04] MEDS: memantine 5 mg tablet 10 MG PO (09:21)
[2024-09-04] MEDS: levothyroxine 150 mcg Tablet PO (09:21)
[2024-09-04] MEDS: apixaban 5 mg Tablet 2.5 MG PO ×2 (09:22→21:52)
[2024-09-04] MEDS: OLANZapine 5 mg TABLET 2.5 MG PO ×2 (09:23→17:36)
[2024-09-04] MEDS: ALPRAZolam 0.5 mg Tablet PO ×2 (09:23→21:52)
[2024-09-04] MEDS: BuSPIRONE 10 mg Tablet PO ×2 (09:23→17:36)
[2024-09-04] MEDS: predniSONE 10 mg Tablet PO (09:23)
[2024-09-04] MEDS: tamsulosin 0.4 mg Capsule PO (09:23)
[2024-09-04] MEDS: metoprolol succinate ER (24 HR) 25 mg Tablet PO (09:24)
[2024-09-04] MEDS: cyanocobalamin 1,000 mcg Tablet 1000 MCG PO (09:24)
--- NOTE | 2024-09-04 09:37 | PC.SOCIAL ---
IMM Update Pg. 2 of IMM updated and reviewed with patient. Copy provided.
--- NOTE | 2024-09-04 13:47 | PC.NURSE ---
Morphine 2mg given to patient at 0930 for patient complaint of leg pain.
--- NOTE | 2024-09-04 14:31 | PM.PN ---
Subjective Subjective: seen today patient was combative overnight requiring haldol agitated sitting up naked on edge of bed complaining of generalized pain Vitals/I&O/Wt Last Vital Signs Temp 96.9 F L 09/04/24 08:10 Pulse 72 09/04/24 12:10 Resp 18 09/04/24 12:10 BP 126/66 09/04/24 12:10 Pulse Ox 98 09/04/24 12:10 O2 Del Method Nasal Cannula 09/04/24 12:10 O2 Flow Rate 4 09/04/24 11:47 09/03/24 09/04/24 09/04/24 22:59 06:59 14:59 Intake Total 60 / 125.196 300 / 425.196 Output Total 250 / 250 Balance 60 / -74.804 300 / 225.196 -250 / -250 Weight last 48 hrs Weight 84 kg Weight 88 kg Physical Exam Narrative: Agitated Expressive aphasia Not able to follow commands completely GCS 15 sitting naked on edge of bed A-fib RVR Abdomen soft Urinary Catheter Management: Mackey: Cath Placed During This Visit: yes, but has since been removed by the nurse Reason for Continuing Indwelling Catheter: Not indwelling catheter Urinary Catheter Date of Insertion: 09/01/24 Date Urinary Catheter Removed: 09/03/24 Time Urinary Catheter Discontinued: 19:00 Data 09/03/24 05:02 09/03/24 05:02 A&P Assessment and plan (1) Goals of care, counseling/discussion: (2) Cerebrovascular accident: (3) Altered mental status: (4) Expressive aphasia: (5) Systolic congestive heart failure: (6) Exertional shortness of breath: (7) Pulmonary embolism: Qualifiers: Pulmonary embolism type: unspecified Chronicity: chronic Acute cor pulmonale presence: unspecified Qualified Code(s): I27.82 - Chronic pulmonary embolism (8) Acute renal failure: (9) Bladder outlet obstruction: (10) Septic shock: (11) Encephalopathy: (12) Pneumonia: (13) Acute respiratory failure with hypoxia: Plan Altered mental status Metabolic encephalopathy related to acute CVA and aspiration pneumonia ICU related delirium Patient required Precedex and Geodon, Haldol I have resumed his anxiolytics Requested bladder scan to rule out urinary retention Patient did not like his meal as well Sepsis resolved: Patient has nares his positive MRSA Will need aspiration pneumonia treatment with doxycycline Acute CVA with expressive aphasia Okay with pur?e diet with thickened liquid Hypotension and dehydration: Improved Lactic acid improved as well KOKI with hyperkalemia, hyperkalemia resolved, creatinine improving with improvement in hydration Patient has bullous pemphigoid rash, continue prednisone Chronic hypoxia at baseline uses 3 L of oxygen, chronic PE takes Eliquis Patient is also diabetic taking insulin with sliding scale A-fib RVR, continue metoprolol added amiodarone Continue Eliquis [facility] be [facility] back to [facility] tomorrow if confusion and A-fib RVR improved 09/04/2024 seen today agitated start zyprexa 2.5 bid order morphine 2 mg iv x1 requiring a sitter Attestations Medical Necessity Statement*: agitated, requiring a sitter Diagnoses Goals of care, counseling/discussion Z71.89 Cerebrovascular accident I63.9 Altered mental status R41.82 Expressive aphasia R47.01 Chronic systolic congestive heart failure I50.20 Exertional shortness of breath R06.02 Chronic pulmonary embolism, unspecified pulmonary embolism type, unspecified whether acute cor pulmonale present I27.82 Pulmonary embolism type: unspecified Chronicity: chronic Acute cor pulmonale presence: unspecified Acute renal failure N17.9 Bladder outlet obstruction N32.0 Septic shock A41.9; R65.21 Encephalopathy G93.40 Pneumonia J18.9 Acute respiratory failure with hypoxia J96.01
[2024-09-04 15:11] LABS: Basophils # 0.1 10^3/uL (0.0-0.1); Basophils % 0.9 %; Eosinophils # 0.2 10^3/uL (0.0-0.8); Eosinophils % 3.2 %; Hematocrit 36.6 % (37-53); Lymphocytes # 1.3 10^3/uL (0.8-4.8); Lymphocytes % 19.1 %; Mean Corpuscular HGB Conc 28.1 g/dL (30-55); Mean Corpuscular Hemoglobin 23.7 pg (27-33); Mean Corpuscular Volume 84.1 fl (82-101); Monocytes # 0.7 10^3/uL (0.2-0.9); Monocytes % 11.1 %; Neutrophils # 4.32 10^3/uL (1.8-7.7); Neutrophils % 65.4 %; Nucleated Red Blood Cells % 0.5 %; Platelet Count 311 10^3/cmm (157-399); Red Blood Count 4.35 10^6/uL (3.85-5.65); Red Cell Distribution Width 19.4 % (12.1-15.1)
[2024-09-04 15:47] LABS: Procalcitonin 0.16 ng/mL (0-0.5)
--- NOTE | 2024-09-04 16:16 | PC.NURSE ---
patient given percocet for generalized pain causing agitation.
[2024-09-04] MEDS: atorvastatin 40 mg Tablet 20 MG PO (21:51)
--- NOTE | 2024-09-04 23:20 | PC.NURSE ---
Patient attempting to crawl out of bed, when redirected patient begain to kick at 1:1 sitter and this RN. Patient keeps taking O2 NC off face and trying to break tubing. Dr Tijerina was notified and new orders placed. Patient is still refusing to wear NC.
[2024-09-05] VITALS (11 sets, daily range): BP systolic 141–173; BP diastolic 82–95; PULSE 71–123; RESP 18–26; TEMP 36.1–36.6; O2SAT 93–98
[2024-09-05] MEDS: LORazepam 2 mg/mL INJ 1 mL IVP (00:21)
[2024-09-05] MEDS: HYDROmorphone 1 mg/mL INJ 1 mL 0.5 MG IVP ×3 (02:17→20:43)
--- NOTE | 2024-09-05 05:25 | PC.NURSE ---
Addendum entered by Elodai Rodríguez RN 09/05/24 06:30: Patient was placed back into restraints at 0608 due to taking nasal cannula off, crawling out of bed, and being aggressive. Patient daughter was notified about patient being placed in restraints at 0625. Original Note: Patient continuously tried to crawl out of bed, refused to wear NC O2 was dropping into the 70's. Patient was aggressively kicking, pinching, and hitting at this RN, 1:1, and other staff. Dr Tijerina notified and new medication orders were placed along with order for non violent soft restraints. Restraints placed on patient at 0125. Patient continued to thrash and kick in bed. notified and new med order was placed. 0412 restraints removed- paient proceeded to pull IV out, try to crawl out of bed, and take NC off. Restraints were replaced at 0421. At 0432 restraints were taken off.
[2024-09-05 05:39] LABS: Basophils # 0.1 10^3/uL (0.0-0.1); Basophils % 0.9 %; Eosinophils # 0.1 10^3/uL (0.0-0.8); Eosinophils % 1.9 %; Hematocrit 36.4 % (37-53); Lymphocytes # 1.2 10^3/uL (0.8-4.8); Lymphocytes % 17.5 %; Mean Corpuscular HGB Conc 27.5 g/dL (30-55); Mean Corpuscular Hemoglobin 23.5 pg (27-33); Mean Corpuscular Volume 85.6 fl (82-101); Monocytes # 0.7 10^3/uL (0.2-0.9); Monocytes % 10.6 %; Neutrophils % 68.7 %; Nucleated Red Blood Cells % 0.4 %; Platelet Count 351 10^3/cmm (157-399); Red Blood Count 4.25 10^6/uL (3.85-5.65); Red Cell Distribution Width 19.5 % (12.1-15.1)
[2024-09-05 06:07] LABS: Anion Gap 17.2 (5-19); Blood Urea Nitrogen 12 mg/dL (8-23); Calcium 8.4 mg/dL (8.5-10.5); Carbon Dioxide 24 mmol/L (22-29); Chloride 109 mmol/L (98-107); Creatinine Clr Calc Pharmacy 72.8611; Glucose 170 mg/dL (65-115); Osmolality Calculated 306 mOsm/kg (285-295); Potassium 4.2 mmol/L (3.5-5.1); Sodium 146 mmol/L (136-145)
[2024-09-05] MEDS: water for injection-sterile 10 ML (06:57)
[2024-09-05] MEDS: OLANZapine 10 mg VIAL IM (06:57)
--- NOTE | 2024-09-05 08:29 | PC.NURSE ---
Patient currently calm and resting with eyes closed after administration of IM Zyprexa. Will attempt medications when patient more awake as patient tends to choke on things.
--- NOTE | 2024-09-05 09:51 | PC.NURSE ---
Patient not eating he may or may not take medications crushed in pudding. Patient has been combative and aggressive. Patient had to be fed yesterday and refuses most of the meal per report. Will continue to monitor.
--- NOTE | 2024-09-05 10:12 | PC.NURSE ---
Attempted new IV access x3. Patient is combative, restless and using profane language. Patient does not follow commands and is uncooperative at this time as well. IV attempted by US. So far no luck. Patient resisting and tensing, fighting, pulling and cussing staff. Informed Dr Cota of patient's condition. No new orders at this time. Will continue to monitor.
[2024-09-05] MEDS: ipratropium-albuterol 3 mL Neb INHALATION (10:44)
[2024-09-05] MEDS: valproic acid inj 500 MG in sodium chloride 0.9% 50 ML 55 MG IV (10:45)
--- NOTE | 2024-09-05 10:55 | PC.NURSE ---
Unable to give PO medications. Patient is choking on everything at this time. Patient unable to clear secretions.
--- NOTE | 2024-09-05 12:18 | P.PN_ITS ---
Subjective 2 Subjective: Seen today. Patient has been combative agitated overnight. Repeatedly tries to get out of bed. Has not had much oral intake either. Labs from this morning show sodium 146. Hemoglobin stable at 10. No family present at bedside. Patient required Haldol Zyprexa overnight. CT head repeated 09/04 does show a evolving stroke in frontal lobe. Depakote IV ordered x 1. Vitals/I&O/Wt Last Vital Signs Temp 96.9 F L 09/05/24 11:55 Pulse 102 H 09/05/24 11:55 Resp 24 H 09/05/24 11:55 BP 158/82 09/05/24 11:55 Pulse Ox 98 09/05/24 11:55 O2 Del Method Nasal Cannula 09/05/24 11:55 O2 Flow Rate 3 09/05/24 10:00 09/04/24 09/05/24 09/05/24 22:59 06:59 14:59 Intake Total 120 / 120 0 / 120 65 / 65 Balance 120 / -130 0 / -130 65 / 65 Weight last 48 hrs Weight 84 kg Weight 84 kg Physical Exam 2 Narrative: Agitated Expressive aphasia Not able to follow commands completely Patient naked laying in bed. Sitter present at bedside. Temp 96.9. Will retake. Abdomen soft Lungs clear to auscultation. Urinary Catheter Management: Mackey: Cath Placed During This Visit: yes, but has since been removed by the nurse Reason for Continuing Indwelling Catheter: Not indwelling catheter Urinary Catheter Date of Insertion: 09/01/24 Date Urinary Catheter Removed: 09/03/24 Time Urinary Catheter Discontinued: 19:00 Data 09/05/24 04:27 09/05/24 04:27 A&P Assessment and plan (1) Goals of care, counseling/discussion: (2) Cerebrovascular accident: (3) Altered mental status: (4) Expressive aphasia: (5) Systolic congestive heart failure: (6) Exertional shortness of breath: (7) Pulmonary embolism: Qualifiers: Pulmonary embolism type: unspecified Chronicity: chronic Acute cor pulmonale presence: unspecified Qualified Code(s): I27.82 - Chronic pulmonary embolism (8) Acute renal failure: (9) Bladder outlet obstruction: (10) Septic shock: (11) Encephalopathy: (12) Pneumonia: (13) Acute respiratory failure with hypoxia: Plan Altered mental status Metabolic encephalopathy related to acute CVA and aspiration pneumonia ICU related delirium Patient required Precedex and Geodon, Haldol I have resumed his anxiolytics Requested bladder scan to rule out urinary retention Patient did not like his meal as well Sepsis resolved: Patient has nares his positive MRSA Will need aspiration pneumonia treatment with doxycycline Acute CVA with expressive aphasia Okay with pur?e diet with thickened liquid Hypotension and dehydration: Improved Lactic acid improved as well KOKI with hyperkalemia, hyperkalemia resolved, creatinine improving with improvement in hydration Patient has bullous pemphigoid rash, continue prednisone Chronic hypoxia at baseline uses 3 L of oxygen, chronic PE takes Eliquis Patient is also diabetic taking insulin with sliding scale A-fib RVR, continue metoprolol added amiodarone Continue Eliquis [facility] if confusion and A-fib RVR improved 09/05/2024 seen today agitated, required multiple doses of medications overnight for agitation and combativeness. ? Will start Depakote today. Order Depakote 500 IV x [address] on famotidine twice daily thereafter. ? Continue Xanax 3 times daily as needed. ? Continue prednisone daily for bullous pemphigoid ? Stop Zyprexa. Continue sitter at this time. If after Depakote given patient does not start to improve within 24 to 48 hours. May consider [facility] at that point ? Will discuss with psychiatry. Attestations 2 Medical Necessity Statement*: Agitated combative, status post frontal lobe stroke. Diagnoses Goals of care, counseling/discussion Z71.89 Cerebrovascular accident I63.9 Altered mental status R41.82 Expressive aphasia R47.01 Chronic systolic congestive heart failure I50.20 Exertional shortness of breath R06.02 Chronic pulmonary embolism, unspecified pulmonary embolism type, unspecified whether acute cor pulmonale present I27.82 Pulmonary embolism type: unspecified Chronicity: chronic Acute cor pulmonale presence: unspecified Acute renal failure N17.9 Bladder outlet obstruction N32.0 Septic shock A41.9; R65.21 Encephalopathy G93.40 Pneumonia J18.9 Acute respiratory failure with hypoxia J96.01
--- NOTE | 2024-09-05 12:21 | XRR_ITS ---
PROCEDURE INFORMATION: Exam: XR Chest Exam date and time: 09/05/2024 3:53 PM Age: 79 years old Clinical indication: Shortness of breath; Additional info: Rule out aspiration pneumonia TECHNIQUE: Imaging protocol: Radiologic exam of the chest. Views: 1 view. COMPARISON: CR (CHEST, ) 09/01/2024 8:01 AM FINDINGS: Tubes, catheters and devices: Stable positioning of a dorsal column stimulator. Surgical clips overlie the right base of the neck. Lungs: Diffuse interstitial and airspace opacities throughout bilateral lungs. Pleural spaces: Unremarkable. No definite pleural effusion. No pneumothorax. Heart/Mediastinum: Unremarkable. No cardiomegaly. Diaphragm: Asymmetric elevation of the right hemidiaphragm. Bones/joints: Unremarkable. XR/XR chest 1V portable [id number] IMPRESSION: Diffuse interstitial and airspace opacities throughout the lungs may represent pulmonary edema, atelectasis, and/or atypical infection/aspiration. Recommend imaging follow-up after clinical treatment to evaluate for resolution.
--- NOTE | 2024-09-05 13:06 | PC.NURSE ---
Recheck of temperature 97.1 in under one arm and 98.0 under the other. Patient will not leave blankets on and I doubt he would leave bear hugger in place. Informed Dr Cota
[2024-09-05] MEDS: dextrose 5% 1,000 ML 50 ML IV (13:10)
--- NOTE | 2024-09-05 15:28 | PC.NURSE ---
Had facetime with daughter Joyce. Patient unable to open his eye and mumble only. Daughter was greatful and told him she would be here on Monday. No response from patient at this time. Will continue to monitor.
--- NOTE | 2024-09-05 17:28 | PC.SLP ---
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 Evolving frontal lobe infarct. Nursing reports patient is having significant difficulty swallowing and is having difficulty with his own secretions at times. Consider n.p.o. status until the patient is more alert, and reassessed.
--- NOTE | 2024-09-05 18:36 | PC.NURSE ---
Addendum entered by Leigha Rios RN 09/06/24 07:04: Dr Cota was informed of these recommendations. Addendum entered by Leigha Rios RN 09/05/24 18:49: Dr Hinds also recommends nothing by mouth due to increased aspiration risk. Original Note: Dr Hinds into see patient. Received verbal order to change IV Valproic acid to 750mg IV for one dose.
--- NOTE | 2024-09-05 19:25 | W.PM.PSYCONS ---
Providers/Reason for Consult Consulting Physican/Specialty*: Matheus Chapman MD/Psychiatry Reason for Consult*: agitation/aggression Attending Physician: Tamera Cota MD Primary Care Provider: Dheeraj Rodgers MD Psych Consult HPI History of Present Illness Agus Gillette is a 79 year old male admitted with evolving stroke who has been agitated and aggressive. The patient was briefly seen today and was unable to provide any clear history. Patient had received Haldol last night to help with agitation and appeared to be responding better with the initiation of Depakote IV. The patient has not been able to swallow without aspiration and is currently being held off of oral medications. Pertinent psychiatric history: There appears to be a history of dementia based upon previous medications prescribed including memantine. Psychiatric medications: Xanax 0.53 times a day, Depakote IV 500 twice a day, BuSpar 10 mg twice a day Medical history: As stated Pertinent social history: Unknown Meds Home Medications and Allergies Home Medications Medication Instructions Recorded Confirmed Last Taken Type bisacodyl 10 mg rectal suppository [address] DAILY PRN Constipation ##0 12/11/19 09/02/24 Unknown History magnesium hydroxide 400 mg/5 mL 30 ml PO DAILY PRN Constipation ##0 12/11/19 09/02/24 Unknown History oral suspension (Milk of Magnesia) sodium phosphates 19 gram-[address] DAILY PRN Constipation 12/11/19 09/02/24 Unknown History gram/118 mL enema (Enema) ##0 acetaminophen 325 mg tablet 650 mg PO Q4H PRN Mild/Mod Pain Or 04/23/20 09/02/24 Unknown History Temp >/= 101 oxycodone-acetaminophen 5 mg-325 1 tab PO Q6H PRN pain 07/27/20 09/02/24 08/31/24 History mg tablet albuterol sulfate 2.5 mg/3 mL 2.5 mg inhalation Q4H PRN 09/26/22 09/02/24 Unknown History (0.083 %) solution for nebulization Shortness Of Breath levothyroxine 150 mcg tablet 150 mcg PO DAILY 09/26/22 09/02/24 08/31/24 06:00 History pantoprazole 40 mg tablet,delayed 40 mg PO DAILY 09/26/22 09/02/24 08/31/24 06:00 History release metformin 1,000 mg tablet 1,000 mg PO BID 09/29/22 09/02/24 08/31/24 20:00 History cyanocobalamin (vitamin B-12) 1,000 mcg PO DAILY 12/19/22 09/02/24 08/31/24 07:00 History 1,000 mcg tablet (Vitamin B-12) alprazolam 0.5 mg tablet (Xanax) 0.5 mg PO DAILY PRN anxiety 02/23/23 09/02/24 08/31/24 History gabapentin 300 mg capsule 300 mg PO TID 02/23/23 09/02/24 08/31/24 History quetiapine 50 mg tablet 50 mg PO 1800 02/23/23 09/02/24 08/30/24 History nitroglycerin 0.4 mg sublingual 0.4 mg sublingual Q5M PRN Chest 05/22/23 09/02/24 Unknown History tablet Pain albuterol sulfate 90 mcg/actuation 2 inh inhalation Q4H PRN shortness 06/14/23 09/02/24 Unknown Rx aerosol inhaler of breath or wheezing #8.5 grams ondansetron HCl 4 mg tablet 4 mg PO Q4H PRN Nausea 07/04/23 09/02/24 Unknown History apixaban 5 mg tablet (Eliquis) 5 mg PO Q12H #60 tabs 07/25/23 09/02/24 08/31/24 Rx Lactobacillus rhamnosus GG 10 1 cap PO DAILY 05/26/24 09/02/24 08/31/24 07:00 History billion cell capsule (Culturelle) prednisone 10 mg tablet 10 mg PO DAILY bullous pemphigoid 05/26/24 09/02/24 08/31/24 07:00 History insulin aspart U-100 100 unit/mL See Rx Instructions .Route 05/30/24 09/02/24 Unknown Rx (3 mL) subcutaneous pen (Novolog .COMPLEX #15 mL FlexPen U-100 Insulin aspart) amino acids-protein hydrolysate 15 See Rx Instructions .Route .COMPLEX 09/02/24 09/02/24 08/31/24 07:00 History gram-101 kcal/30 mL oral liquid buspirone 10 mg tablet 10 mg PO BID 09/02/24 09/02/24 08/31/24 08:00 History clobetasol 0.05 % topical ointment 1 applic topical BID PRN bullous 09/02/24 09/02/24 08/29/24 History pemphigoid empagliflozin 10 mg tablet 10 mg PO DAILY 09/02/24 09/02/24 08/31/24 07:00 History (Jardiance) ferrous gluconate 324 mg (38 mg 324 mg PO DAILY 09/02/24 09/02/24 08/31/24 06:00 History iron) tablet loperamide 2 mg capsule See Rx Instructions .Route .COMPLEX 09/02/24 09/02/24 Unknown History magnesium oxide 400 mg PO TID 09/02/24 09/02/24 08/31/24 History memantine 10 mg tablet 10 mg PO DAILY 09/02/24 09/02/24 08/31/24 06:00 History menthol 4 % topical gel (Biofreeze 1 applic topical QID PRN Pain 09/02/24 09/02/24 08/13/24 History (menthol)) metoprolol succinate 25 mg 25 mg PO DAILY 09/02/24 09/02/24 08/31/24 08:00 History tablet,extended release 24 hr sacubitril 49 mg-valsartan 51 mg 1 tab PO BID 09/02/24 09/02/24 08/31/24 08:00 History tablet (Entresto) tamsulosin 0.4 mg capsule 0.4 mg PO DAILY 09/02/24 09/02/24 08/31/24 07:00 History tizanidine 2 mg tablet 2 mg PO Q8H PRN muscle spasm 09/02/24 09/02/24 08/29/24 History amiodarone 200 mg tablet (Pacerone) 400 mg (2 x 200 mg) PO BID #60 tabs 09/03/24 Unknown Rx atorvastatin 10 mg tablet 20 mg (2 x 10 mg) PO BEDTIME #30 09/03/24 09/02/24 08/30/24 Rx tabs clopidogrel 75 mg tablet (Plavix) 75 mg PO DAILY #30 tabs 09/03/24 Unknown Rx doxycycline hyclate 100 mg tablet 100 mg PO BID 10 days #20 tabs 09/03/24 Unknown Rx Allergies Allergy/AdvReac Type Severity Reaction Status Date / Time hydrocodone Allergy Unknown Unknown Verified 10/23/23 13:42 Penicillins Allergy Unknown Unknown Verified 10/23/23 13:42 valsartan Allergy Unknown Unknown Verified 10/23/23 13:42 simvastatin Allergy Unknown Verified 10/23/23 13:42 Current Medications Current Medications Generic Name Dose Route Start Last Admin Trade Name Freq PRN Reason Stop Dose Admin Albuterol/Ipratropium 3 ml 09/01/24 12:15 09/05/24 10:44 Ipratropium-Albuterol 3 Ml Neb INHALATION 3 ml Q6H PRN Administration SHORTNESS OF BREATH Alprazolam 0.5 mg 09/03/24 18:50 09/04/24 21:52 Alprazolam 0.5 Mg Tablet PO 0.5 mg TID PRN Administration anxiety Amiodarone HCl 400 mg 09/03/24 15:05 09/05/24 17:26 Amiodarone 200 Mg Tablet PO Not Given BID TANIA Apixaban 2.5 mg 09/01/24 20:00 09/05/24 10:56 Apixaban 5 Mg Tablet PO Not Given Q12H TANIA Atorvastatin Calcium 20 mg 09/01/24 21:00 09/04/24 21:51 Atorvastatin 40 Mg Tablet PO 20 mg BEDTIME TANIA Administration Buspirone HCl 10 mg 09/03/24 18:50 09/05/24 17:26 Buspirone 10 Mg Tablet PO Not Given BID TANIA Cyanocobalamin 1,000 mcg 09/04/24 09:00 09/05/24 10:58 Cyanocobalamin 1,000 Mcg Tablet PO Not Given DAILY TANIA Hydromorphone HCl 0.5 mg 09/05/24 01:54 09/05/24 16:10 Hydromorphone 1 Mg/Ml Inj 1 Ml IVP 0.5 mg Q4H PRN Administration SEVERE PAIN Dextrose 1,000 mls @ 50 mls/hr 09/05/24 12:30 09/05/24 13:10 D5w IV 50 mls/hr .Q20H TANIA Administration Levothyroxine Sodium 150 mcg 09/02/24 09:00 09/05/24 10:58 Levothyroxine 150 Mcg Tablet PO Not Given DAILY TANIA Memantine 10 mg 09/04/24 09:00 09/05/24 10:59 Memantine 5 Mg Tablet PO Not Given DAILY TANIA Metoprolol Succinate 25 mg 09/03/24 14:34 09/05/24 10:59 Metoprolol Succinate Er (24 Hr) 25 Mg Tablet PO Not Given DAILY [facility] Ondansetron HCl 4 mg 09/01/24 12:15 09/03/24 10:26 Ondansetron 2 Mg/Ml Sdv 2 Ml IVP 4 mg Q6H PRN Administration NAUSEA AND VOMITING Prednisone 10 mg 09/02/24 09:00 09/05/24 11:00 Prednisone 10 Mg Tablet PO Not Given DAILY [facility] Tamsulosin HCl 0.4 mg 09/04/24 09:00 09/05/24 11:00 Tamsulosin 0.4 Mg Capsule PO Not Given DAILY [facility] PFSH NPU PFSH: Medical History Exertional shortness of breath Type 2 diabetes mellitus KOKI (acute kidney injury) Acute blood loss anemia Ischemic bowel disease Small bowel obstruction Insomnia disorder Chest pain Spinal cord stimulator status Chronic kidney disease, stage II (mild) Hypothyroidism Hypertension COPD (chronic obstructive pulmonary disease) Lower back pain GI bleed Systolic congestive heart failure Last echocardiogram 12/19/2022: LVEF 35-40%, mild aortic stenosis (mean gradient 7 mmHg, EVERT 1.2 cm?) LVEF decreased from 55% in 2020. CVA (cerebral vascular accident) Pulmonary embolism Coronary artery disease Surgical History H/O cardiac catheterization H/O shoulder surgery Hx of cholecystectomy History of right-sided carotid endarterectomy History of ankle surgery Family History Denies family history of Lung disease Hypertension Social History Smoking and tobacco/nicotine status: former use of tobacco/nicotine Alcohol intake: never Substance/Drug Use: never Household members: other Details: Resident of a half-way Mental Status Exam MSE Comments: Patient was alert and awake and was not able to speak or respond to questions. He appeared to be writhing in pain. His thought process appeared nonlinear. His speech was dysarthric. He did not appear to be responding to internal stimuli. There is no clear evidence of delusional thinking. He did not appear to be engaging in self injury at the time. He appeared in and out of consciousness at times his attention span was impaired. He was unable to provide orientation currently. His insight and judgment were impaired. Vitals/I&O/Wt Last Vital Signs Temp 97.6 F 09/05/24 16:00 Pulse 102 H 09/05/24 16:00 Resp 18 09/05/24 16:10 BP 160/95 09/05/24 16:00 Pulse Ox 93 09/05/24 16:00 O2 Del Method Nasal Cannula 09/05/24 16:00 O2 Flow Rate 3 09/05/24 10:00 09/05/24 09/05/24 09/05/24 06:59 14:59 22:59 Intake Total 0 / 120 65 / 65 Balance 0 / -130 65 / 65 Weight last 48 hrs Weight 84 kg Weight 84 kg Physical Exam Urinary Catheter Management: Mackey: Cath Placed During This Visit: yes, but has since been removed by the nurse Reason for Continuing Indwelling Catheter: Not indwelling catheter Urinary Catheter Date of Insertion: 09/01/24 Date Urinary Catheter Removed: 09/03/24 Time Urinary Catheter Discontinued: 19:00 Data NPU 09/05/24 04:27 09/05/24 04:27 A&P Assessment and plan (1) Dementia with agitation: (2) Impulse control disorder: Plan 1. Agree with plan to continue to use IV medications to target aggression. Recommend increase in Depakote to 500 mg a.m. and 7:50 PM as this is below the standard bolusing of Depakote at 15 mg/kg. 2. Haldol IM for agitation. 3. Will follow. Attestations NPU Medical Necessity Statement*: NA Coding Level of Care Code Acute Code for Chg Fwd Diagnoses Dementia with agitation F03.911 Impulse control disorder F63.9
[2024-09-05] MEDS: SODIUM CHLORIDE 0.9% IV (20:54)
[2024-09-05] MEDS: VALPROIC ACID IV (20:54)
[2024-09-06] VITALS (11 sets, daily range): BP systolic 133–153; BP diastolic 86–97; PULSE 98–132; RESP 16–29; TEMP 36.2–36.8; O2SAT 92–99; BMI 26.7
[2024-09-06] MEDS: HYDROmorphone 1 mg/mL INJ 1 mL 0.5 MG IVP ×4 (00:49→12:30)
--- NOTE | 2024-09-06 01:16 | ECG_ITS ---
[employer] [facility] Test Date: 2024-09-06 Pat Name: Agus Gillette Department: Room: 112 Gender: Male Health Actuary: : 1945 Requested By: Tamera Cota Order Number: [id number] Anton MD: Carolina Fang M.D. Measurements Intervals [place] Rate: 136 P: 0 DE: 0 QRS: 44 QRSD: 114 T: 171 QT: 315 QTc: 475 Interpretive Statements ATRIAL FIBRILLATION WITH RAPID VENTRICULAR RESPONSE WITH ABERRANT CONDUCTION OR VENTRICULAR PREMATURE COMPLEXES MODERATE INTRAVENTRICULAR CONDUCTION DELAY [110+ ms QRS DURATION] ST DEVIATION AND MODERATE T-WAVE ABNORMALITY, CONSIDER LATERAL ISCHEMIA [-0.1+ mV T-WAVE IN I/aVL/V5/V6] Compared to ECG 09/01/2024 09:08:16 Aberrant conduction of supraventricular beat(s) now present Intraventricular conduction delay now present Sinus rhythm no longer present Myocardial infarct finding no longer present T-wave abnormality still present Possible ischemia still present Electronically Signed On 09-09-2024 00:07:52 CDT by Carolina Fang M.D. [email or web address]
[2024-09-06] MEDS: metoprolol tartrate 1 mg/1 mL SDV 5 mL 5 MG IVP (01:44)
--- NOTE | 2024-09-06 04:31 | PC.NURSE ---
Patient was able to rest and remained calm. Restraints were removed at 0030. Patient soiled bed and bed was changed at 0415. Patient began to become agitated and agressive, pulling nasal cannula off and pulling at IV. Restraints were replaced at 0430.
--- NOTE | 2024-09-06 04:36 | PC.NURSE ---
Patient HR was elevated into the 120-130. Dr Tijerina was notified and new meds ordered.
[2024-09-06 05:44] LABS: Blood Urea Nitrogen 8 mg/dL (8-23); Calcium 8.2 mg/dL (8.5-10.5); Carbon Dioxide 24 mmol/L (22-29); Chloride 110 mmol/L (98-107); Creatinine Clr Calc Pharmacy 86.2472; Glucose 202 mg/dL (65-115); Osmolality Calculated 306 mOsm/kg (285-295); Sodium 146 mmol/L (136-145)
[2024-09-06] MEDS: dextrose 5% 1,000 ML 50 ML IV (07:49)
--- NOTE | 2024-09-06 08:33 | PC.SOCIAL ---
IMM Update Pg. 2 of IMM updated. Copy provided at bedside.
[2024-09-06] MEDS: valproic acid inj 500 MG in sodium chloride 0.9% 50 ML 55 MG IV (09:24)
--- NOTE | 2024-09-06 12:26 | PC.NURSE ---
Dr Cota and this RN had conversation with Daughter Joyce Jones regarding declining condition of patient. Joyce has made decision to place her father on comfort care at this time.
--- NOTE | 2024-09-06 12:58 | P.PN_ITS ---
Subjective 2 Subjective: Seen today. Patient has aspirated and is having gurgling sounds and also using accessory muscles of respiration. Nursing staff have attempted to suction. He is currently on nasal cannula. If BiPAP placed I would worsen aspiration. He has not eaten in last few days secondary to high risk of aspiration due to agitation and anxiety. Patient has received IV Depakote 3 doses so far with not much change in mental status. He is more calm at times however is unable to participate in any meaningful conversation or activity. He is currently on soft restraints. He is required multiple doses of Ativan Haldol Zyprexa however last few days. Discussed all the above with patient's daughter over the phone. Patient does have a frontal lobe stroke and has deteriorated. Discussed with her regarding his condition and his mental status. Daughter Joyce who is the DPOA states that she does not want to see her father suffering and would like for us to transition him to comfort measures and to keep him comfortable. She lives out of state in [place] and will be coming in today. She would like for him to remain in the hospital till she gets here. Conversation was taken place with nursing staff present in the room and following was put on speaker. In accordance with patient's daughter's wishes we will transition him to comfort measures at this time. She understands we will stop IV fluids antibiotics and provide supportive care going forward. Vitals/I&O/Wt Last Vital Signs Temp 97.2 F L 09/06/24 12:00 Pulse 98 09/06/24 12:00 Resp 24 H 09/06/24 12:30 BP 145/87 09/06/24 12:00 Pulse Ox 96 09/06/24 12:30 O2 Del Method Nasal Cannula 09/06/24 12:00 O2 Flow Rate 4 09/06/24 07:21 09/05/24 09/06/24 09/06/24 22:59 06:59 14:59 Intake Total 157.5 / 222.5 100 / 322.5 987.5 / 987.5 Balance 157.5 / 222.5 100 / 322.5 987.5 / 987.5 Weight last 48 hrs Weight 84.5 kg Weight 94.1 kg Weight 84 kg Physical Exam 2 Narrative: Agitated On restraints, gurgling and respiratory distress using accessory muscles of respiration. Unable to follow any commands. Patient naked laying in bed. Sitter present at bedside. Rhonchi bilateral lung adhikari. Urinary Catheter Management: Mackey: Cath Placed During This Visit: yes, but has since been removed by the nurse Reason for Continuing Indwelling Catheter: Not indwelling catheter Urinary Catheter Date of Insertion: 09/01/24 Date Urinary Catheter Removed: 09/03/24 Time Urinary Catheter Discontinued: 19:00 Data 09/05/24 04:27 09/06/24 05:00 Micro: Microbiology 09/01/24 09:09 Blood Culture - Final Blood NO GROWTH AFTER 5 DAYS 09/01/24 09:06 Blood Culture - Final Blood NO GROWTH AFTER 5 DAYS A&P Assessment and plan (1) Goals of care, counseling/discussion: (2) Cerebrovascular accident: (3) Altered mental status: (4) Expressive aphasia: (5) Systolic congestive heart failure: (6) Exertional shortness of breath: (7) Pulmonary embolism: Qualifiers: Pulmonary embolism type: unspecified Chronicity: chronic Acute cor pulmonale presence: unspecified Qualified Code(s): I27.82 - Chronic pulmonary embolism (8) Acute renal failure: (9) Bladder outlet obstruction: (10) Septic shock: (11) Encephalopathy: (12) Pneumonia: (13) Acute respiratory failure with hypoxia: Plan 09/06/2024 ? Altered mental status, delirium related to stroke, aspiration. Patient unable to eat anything secondary to high aspiration risk. Also not cooperating. Agitated and requiring multiple doses of Haldol Zyprexa Depakote and last few days. ? Please see subjective portion of this note. ? Will switch over to comfort measures as per patient's daughter's wishes who is also the DPOA. ? Patient has not shown much improvement despite Depakote at this time. ? Psychiatry consulted on patient and on board at this time ? Will place comfort care orders in accordance with wishes of family. ? Updated nursing staff Attestations 2 Medical Necessity Statement*: Agitated combative, status post frontal lobe stroke. Diagnoses Goals of care, counseling/discussion Z71.89 Cerebrovascular accident I63.9 Altered mental status R41.82 Expressive aphasia R47.01 Chronic systolic congestive heart failure I50.20 Exertional shortness of breath R06.02 Chronic pulmonary embolism, unspecified pulmonary embolism type, unspecified whether acute cor pulmonale present I27.82 Pulmonary embolism type: unspecified Chronicity: chronic Acute cor pulmonale presence: unspecified Acute renal failure N17.9 Bladder outlet obstruction N32.0 Septic shock A41.9; R65.21 Encephalopathy G93.40 Pneumonia J18.9 Acute respiratory failure with hypoxia J96.01
--- NOTE | 2024-09-06 13:53 | PC.SLP ---
Patient NPO and on comfort care. No SHOE LASTER treatment provided.
[2024-09-06] MEDS: LORazepam 2 mg/mL INJ 1 mL IVP ×2 (14:42→22:30)
[2024-09-06] MEDS: morphine 4 mg/mL SDV 1 mL IVP ×2 (20:08→23:54)
[2024-09-06] MEDS: blistex lip oint 7 gm Tube 1 APPLIC TOPICAL (20:57)
[2024-09-07] MEDS: morphine 4 mg/mL SDV 1 mL IVP ×5 (01:38→18:35)
[2024-09-07] MEDS: atropine 1% op soln 2 mL Btl 3 DROP SUBLINGUAL (04:54)
[2024-09-07 06:00] VITALS: BMI 26.6
[2024-09-07 11:43] VITALS: RESP 24
[2024-09-07] MEDS: LORazepam 2 mg/mL INJ 1 mL IVP (12:14)
--- NOTE | 2024-09-07 14:09 | P.PN_ITS ---
Subjective 2 Subjective: Patient appears comfortable at this time, daughter at bedside. Vitals/I&O/Wt Last Vital Signs Temp 97.8 F 09/06/24 20:52 Pulse 123 H 09/06/24 20:52 Resp 24 H 09/07/24 11:43 BP 138/90 09/06/24 20:52 Pulse Ox 92 09/06/24 20:52 O2 Del Method Nasal Cannula 09/06/24 20:52 O2 Flow Rate 3 09/06/24 20:52 09/06/24 09/07/24 09/07/24 22:59 06:59 14:59 Intake Total 0 / 0 Balance 0 / 0 Weight last 48 hrs Weight 84.368 kg Weight 84.5 kg Weight 94.1 kg Physical Exam 2 Narrative: Rhonchi bilaterally, rattling appreciated while breathing Appears comfortable Limited exam secondary to comfort measure status. Daughter at bedside. Urinary Catheter Management: Mackey: Cath Placed During This Visit: yes, but has since been removed by the nurse Reason for Continuing Indwelling Catheter: Not indwelling catheter Urinary Catheter Date of Insertion: 09/01/24 Date Urinary Catheter Removed: 09/03/24 Time Urinary Catheter Discontinued: 19:00 Data 09/05/24 04:27 09/06/24 05:00 Micro: Microbiology 09/01/24 09:09 Blood Culture - Final Blood NO GROWTH AFTER 5 DAYS 09/01/24 09:06 Blood Culture - Final Blood NO GROWTH AFTER 5 DAYS A&P Assessment and plan (1) Goals of care, counseling/discussion: (2) Cerebrovascular accident: (3) Altered mental status: (4) Expressive aphasia: (5) Systolic congestive heart failure: (6) Exertional shortness of breath: (7) Pulmonary embolism: Qualifiers: Pulmonary embolism type: unspecified Chronicity: chronic Acute cor pulmonale presence: unspecified Qualified Code(s): I27.82 - Chronic pulmonary embolism (8) Acute renal failure: (9) Bladder outlet obstruction: (10) Septic shock: (11) Encephalopathy: (12) Pneumonia: (13) Acute respiratory failure with hypoxia: Plan 09/07/2024 ? Patient is comfort measures status ? Please see previous progress notes for details Continue comfort measures as per protocol Daughter at bedside. She would like to keep him in the hospital for comfort measures. Continue to provide supportive care. Attestations 2 Medical Necessity Statement*: Comfort measures Diagnoses Goals of care, counseling/discussion Z71.89 Cerebrovascular accident I63.9 Altered mental status R41.82 Expressive aphasia R47.01 Chronic systolic congestive heart failure I50.20 Exertional shortness of breath R06.02 Chronic pulmonary embolism, unspecified pulmonary embolism type, unspecified whether acute cor pulmonale present I27.82 Pulmonary embolism type: unspecified Chronicity: chronic Acute cor pulmonale presence: unspecified Acute renal failure N17.9 Bladder outlet obstruction N32.0 Septic shock A41.9; R65.21 Encephalopathy G93.40 Pneumonia J18.9 Acute respiratory failure with hypoxia J96.01
[2024-09-07 16:21] VITALS: RESP 22
[2024-09-07 18:35] VITALS: RESP 24
--- NOTE | 2024-09-08 02:38 | PC.NURSE ---
Patient was noted to have a drop in HR around 00:40, nurse went into check patient and patient was agonal breathing. The nurse was present for support while the patient continued with bradycardia and eventually asystole. Nurse confirmed no breath sounds or heart sounds, and was confirmed by second nurse. Time of was 00:49. The Hospitalist was called and made aware as well as mold shop supervisor and the patients daughter. [facility] was contacted and said patient could go to [facility] at this time. Post-mortem care was completed and patient transferred to the [facility].
--- NOTE | 2024-09-08 05:53 | PC.NURSE ---
Latesha time 0228
--- NOTE | 2024-09-08 14:08 | PM.DDS ---
Discharge Providers DDS Date of Admission: 09/01/24 09:18 Date Summary Completed: 09/13/24 Attending Provider at Admission: Ace Harris MD Attending Provider at Discharge: Tamera Cota MD Primary Care Provider: Dheeraj Rodgers MD DS Diagnoses Hospital Diagnoses (1) Goals of care, counseling/discussion: (2) Cerebrovascular accident: (3) Altered mental status: (4) Expressive aphasia: (5) Systolic congestive heart failure: Permanent Problem Comments: Last echocardiogram 12/19/2022: LVEF 35-40%, mild aortic stenosis (mean gradient 7 mmHg, EVERT 1.2 cm?) LVEF decreased from 55% in 2020. (6) Exertional shortness of breath: (7) Pulmonary embolism: Qualifiers: Acute cor pulmonale presence: unspecified Chronicity: chronic Pulmonary embolism type: unspecified Qualified Code(s): I27.82 - Chronic pulmonary embolism (8) Acute renal failure: (9) Bladder outlet obstruction: (10) Septic shock: (11) Encephalopathy: (12) Pneumonia: (13) Acute respiratory failure with hypoxia: Reason for Visit Reason for Visit AMS Summary Summary Summary: Please see prior notes for details. Patient was on comfort measures and naturally. Additional Data Advance directives?: Yes Discharge Plan Discharge Patient Disposition: Condition: Stable Probable Cause of Probable cause of : Cerebrovascular accident DS Attestations Time Spent in /Discharge Care*: greater than 30 min Quality - AMI: AMI present?: No Quality - Stroke: CVA present?: Yes Symptom Onset Unknown: No Quality - VTE: VTE present?: No Deep Vein Thrombosis/Pulmonary Embolism Present on Admission: No Coding Level of Care Code Acute Code for Chg Fwd Diagnoses Goals of care, counseling/discussion Z71.89 Cerebrovascular accident I63.9 Altered mental status R41.82 Expressive aphasia R47.01 Chronic systolic congestive heart failure I50.20 Exertional shortness of breath R06.02 Chronic pulmonary embolism, unspecified pulmonary embolism type, unspecified whether acute cor pulmonale present I27.82 Acute cor pulmonale presence: unspecified Chronicity: chronic Pulmonary embolism type: unspecified Acute renal failure N17.9 Bladder outlet obstruction N32.0 Septic shock A41.9; R65.21 Encephalopathy G93.40 Pneumonia J18.9 Acute respiratory failure with hypoxia J96.01
== END 2024-09-08 00:49 | disposition expired | DRG 871 ==
LOC: ER 09:27 → ICU 09:34 → CSU 09-03 18:48
PROVIDERS: Admitting Provider Internal Medicine; Emergency Provider Emergency Medicine; PCP Family Medicine; Visit Provider Internal Medicine
DX: A41.9 Sepsis, unspecified organism (principal); G93.41 Metabolic encephalopathy; I63.9 Cerebral infarction, unspecified; R65.21 Severe sepsis with septic shock; J69.0 Pneumonitis due to inhalation of food and vomit; J96.21 Acute and chronic respiratory failure with hypoxia; I13.0 Hypertensive heart and chronic kidney disease with heart failure and stage 1 through stage 4 chronic kidney disease, or unspecified chronic kidney disease; I50.20 Unspecified systolic (congestive) heart failure; I27.82 Chronic pulmonary embolism; N17.9 Acute kidney failure, unspecified; F03.911 Unspecified dementia, unspecified severity, with agitation; R47.01 Aphasia; N18.2 Chronic kidney disease, stage 2 (mild); E11.22 Type 2 diabetes mellitus with diabetic chronic kidney disease; Z79.4 Long term (current) use of insulin; N32.0 Bladder-neck obstruction; I25.5 Ischemic cardiomyopathy; I48.91 Unspecified atrial fibrillation; Z66 Do not resuscitate; R23.8 Other skin changes; E86.0 Dehydration; I95.9 Hypotension, unspecified; G47.00 Insomnia, unspecified; E03.9 Hypothyroidism, unspecified; J44.9 Chronic obstructive pulmonary disease, unspecified; I25.10 Atherosclerotic heart disease of native coronary artery without angina pectoris; E87.5 Hyperkalemia; F63.9 Impulse disorder, unspecified; Z51.5 Encounter for palliative care; Z99.81 Dependence on supplemental oxygen; Z86.73 Personal history of transient ischemic attack (TIA), and cerebral infarction without residual deficits; Z87.891 Personal history of nicotine dependence; Z79.84 Long term (current) use of oral hypoglycemic drugs; Z79.01 Long term (current) use of anticoagulants; Z79.52 Long term (current) use of systemic steroids
CPT/HCPCS: 36415; 36416; 36600; 51702; 51798; 70450; 71045; 74230; 80048; 80053; 81001; 82140; 82274; 82805; 82962; 83605; 83630; 83735; 84145; 84443; 85025; 85610; 87040; 92507; 92523; 92526; 92610; 92611; 93005; 94640; 96365; 96372; 96374; 96375; 96376; 97110; 97163; 97530; 99285; J0456; J0696; J1171; J1630; J2060; J2270; J2405; J3490; J7030; J7050; J7070; J7512